=== PATIENT | male | born 1950 | race Caucasian/White ===

== ENCOUNTER 2018-08-18 15:45 | Emergency (ER) | payer OTHER, BC ==
--- OUTSIDE RECORDS SUMMARY | 2018-08-18 15:54 | XMS REPORT | Clinical Summary ---
:1950 Author Organization [facility] Address [address] [place] [address] Care Team Providers Name Role Phone Jasmeet Valle MD Primary Care Provider Unavailable Allergies Active Allergy Reactions Severity Noted Date Comments Adhesive Tape-Silicones Other (See Comments) 07/04/2016 Skin tears Codeine GI Intolerance 07/04/2016 nausea Pantoprazole Rash Low 07/04/2016 Qyshyez-Oxl-Rsz Reductase Anaphylaxis High 07/04/2016 seizures Inhibitors Medications Medication Sig Dispensed Refills Start Date End Date Status doxycycline Take 100 mg by 11 06/10/2016 Active (VIBRAMYCIN) 100 MG mouth 2 (two) capsule times a day. cefdinir (OMNICEF) 300 Take 300 mg by 11 06/10/2016 Active MG capsule mouth 2 (two) times a day. famotidine (PEPCID) 20 Take 20 mg by 0 Active MG tablet mouth. ergocalciferol (VITAMIN Take by mouth. 0 Active D2) 50,000 unit capsule lactulose (CHRONULAC) TAKE 30ML BY 5 06/30/2016 Active 10 gram/15 mL solution MOUTH THREE TIMES DAILY XIFAXAN 550 mg tablet Take 550 mg by 3 06/08/2016 Active mouth 2 (two) times a day. rOPINIRole (REQUIP) TAKE 2 TABLETS BY 3 06/28/2016 Active 0.25 MG tablet MOUTH NIGHTLY AT BEDTIME spironolactone Take 50 mg by 0 06/14/2016 Active (ALDACTONE) 50 MG mouth 2 (two) tablet times a day. torsemide (DEMADEX) 20 Take 40 mg by 3 06/12/2016 Active MG tablet mouth 2 (two) times a day. traZODone (DESYREL) 50 Take 50 mg by 5 06/06/2016 Active MG tablet mouth nightly. ursodiol (ACTIGALL) 300 Take 600 mg by 6 05/14/2016 Active mg capsule mouth 2 (two) times a day. zinc sulfate (ZINCATE) Take 220 mg by 0 Active 220 (50) mg capsule mouth. midodrine (PROAMATINE) Take 2.5 mg by 3 04/19/2016 Active 2.5 MG tablet mouth 2 (two) times a day. LANTUS SOLOSTAR 100 INJECT 20 UNITS 2 03/30/2016 Active unit/mL injection (pen) UNDER THE SKIN ONCE DAILY HUMALOG KWIKPEN 100 INJECT 25 UNIT 2 05/15/2016 Active unit/mL insulin pen UNDER THE SKIN WITH EACH MEAL, INCLUDING SNACKS hydrOXYzine (ATARAX) 25 TAKE 1 TABLET BY 3 06/27/2016 Active MG tablet MOUTH 3 TIMES A DAY NEEDED FOR ITCHING clotrimazole (LOTRIMIN) APPLY TO AFFECTED 11 04/09/2016 Active 1 % cream AREAS TWICE DAILY. cholestyramine 5 06/26/2016 Active (QUESTRAN) 4 gram packet ondansetron ODT Take 4 mg by 0 02/06/2016 Active (ZOFRAN-ODT) 4 MG mouth. disintegrating tablet CALCIUM PHOSPHATE Take by mouth. 0 Active TRIB/VIT D3 (CALTRATE GUMMY BITES ORAL) omeprazole OTC Take 20 mg by 0 Active (PriLOSEC OTC) 20 MG EC mouth daily. tablet Active Problems No known active problems Family History Medical History Relation Name Comments Heart disease Father Dementia Mother Diabetes Mother Heart failure Mother Osteoporosis Mother Relation Name Status Comments Father Alive Mother Social History Tobacco Use Types Packs/Day Years Used Date Never Smoker Smokeless Tobacco: Former User Chew Quit: 1973 Alcohol Use Drinks/Week oz/Week Comments No Haven't had a drink in 17 years Sex Assigned at Date Recorded Not on file Job Start Date Occupation Industry Not on file Not on file Not on file Travel History Travel Start Travel End No recent travel history available. Last Filed Vital Signs Not on file Plan of Treatment Health Maintenance Due Date Last Done Comments COLON CANCER SCREENING 1999 SHINGLES VACCINES (1 of 2) 1999 PNEUMOCOCCAL POLYSACCHARIDE VACCINE AGE 65 AND OVER 2014 PNEUMOCOCCAL-13 2014 INFLUENZA VACCINE 02/12/2018 Results Not on fileafter 08/17/2017 Insurance Payer Benefit Plan / Group Subscriber ID Type Phone Address MEDICARE MEDICARE PART A AND B xxxxxxxxxx Medicare [place], [place] BCBS BCBS PAR/TRAD PLAN xxxxxxxxxxxx Indemnity Advance Directives Patient has advance care planning documents on file. For more information, please contact:Jayme Haddad[address] [place] [address]
--- OUTSIDE RECORDS SUMMARY | 2018-08-18 15:59 | XMS REPORT ---
:1950 [facility] Address [address] [place] [address] Dr. Vazquez [address] [place] [id number] Care Team Providers Name Role Phone GEOFF SOLIMAN Unavailable Unavailable SABRINA MARX Unavailable Unavailable MAGDY COTTON Unavailable Unavailable GIN CARMICHAEL Unavailable Unavailable NAOMI RESENDEZ Unavailable Unavailable ROCKY OLIVO Unavailable Unavailable AUGIE HUIZAR Unavailable Unavailable HIMA MAGAÑA Unavailable Unavailable ANDRES AMAYA Unavailable Unavailable LAZARUS RODRÍGUEZ Unavailable Unavailable SMITH SAENZ Unavailable Unavailable INNA DENNIS Unavailable Unavailable STUART GONZALEZ Unavailable Unavailable DAWSON ZEPEDA Unavailable Unavailable Problems This patient has no known problems. Allergies, Adverse Reactions, Alerts This patient has no known allergies or adverse reactions. Medications This patient has no known medications. Results Test Description Test Time Test Comments Text Results Atomic Results Result Comments BLOOD CULTURE 2018-07-27 13:00:00 Test Item Value Reference Range Comments CULTURE (BEAKER) (test kfmk=8432) No growth in 5 days BLOOD [id number] 13:00:00 Test Item Value Reference Range Comments CULTURE (BEAKER) (test acmo=9248) No growth in 5 days STOOL CULTURE + SHIGA [id number] 06:17:00 Test Item Value Reference Range Comments CULTURE (BEAKER) (test No Salmonella, Shigella or ryib=8040) Campylobacter isolated STOOL PATH [id number] 06:17:00 Test Item Value Reference Range Comments PATHOGEN EXAM CHARGED (BEAKER) (test jthb=4031) Done POCT-GLUCOSE [id number] 17:50:00 Test Item Value Reference Range Comments POC-GLUCOSE METER ([employer]) 200 mg/dL 70-110 TESTED AT [place] [address] [address] (test krjx=3372) [place] [address] SHIGA TOXIN [id number] 15:19:00 Test Item Value Reference Range Comments SHIGA TOXIN 1 (BEAKER) (test zici=9943) Not detected Not detected SHIGA TOXIN 2 (BEAKER) (test syan=2710) Not detected Not detected POCT-GLUCOSE [id number] 12:17:00 Test Item Value Reference Range Comments POC-GLUCOSE METER (BEAKER) 106 mg/dL 70-110 TESTED AT [address] (test amjn=9103) [place] [address] C. DIFFICILE GDH [id number] 09:26:00 Test Item Value Reference Range Comments CDT TOXIN (test Negative Negative eukh=[id number]) CDT GDH ANTIGEN (test Negative Negative No indication of Clostridium gjeb=[id number]) difficile infection and no colonization. Discontinue enteric isolation and therapy. Testing performed by [employer] Rapid Cassette Assay. For GDH, published sensitivity of the assay is 98.7% compared to cytotoxicity testing. For Toxin AB, published sensitivity is 87.8% and specificity 99.4% compared to cytotoxicity testing.Verification of kit performance was done by the [facility] Microbiology Lab prior to clinical use.POCT-GLUCOSE [id number] 07:57:00 Test Item Value Reference Range Comments POC-GLUCOSE METER ([employer]) 291 mg/dL 70-110 TESTED AT [address] (test lhlu=1119) [place] [address] HEPATITIS A ANTIBODY, [id number] 07:41:00 Test Item Value Reference Range Comments HEPATITIS A IGG ANTIBODY ([facility]) (test dsuf=6587) Reactive Nonreactive HEPATITIS B SURFACE [id number] 07:06:00 Test Item Value Reference Range Comments HEPATITIS B SURFACE ANTIBODY (BEAKER) (test < mIU/mL <8.0 uftj=746) CALCIUM, [id number] 06:50:00 Test Item Value Reference Range Comments CALCIUM IONIZED (AKER) (test fioo=051) 1.04 mmol/L 1.12-1.27 PH, BLOOD ([facility]) (test bzdb=2589) 7.46 CBC W/PLT COUNT & AUTO [id number] 06:42:00 Test Item Value Reference Range Comments WHITE BLOOD CELL COUNT 4.0 K/ L 3.5-10.5 (BEAKER) (test uvqr=208) RED BLOOD CELL COUNT (BEAKER) 2.73 M/ L 4.63-6.08 (test qlyf=906) HEMOGLOBIN (BEAKER) (test 8.5 GM/DL 13.7-17.5 vmlx=846) HEMATOCRIT (BEAKER) (test 28.0 % 40.1-51.0 jxwt=475) MEAN CORPUSCULAR VOLUME 102.6 fL 79.0-92.2 (BEAKER) (test hqud=279) MEAN CORPUSCULAR HEMOGLOBIN 31.1 pg 25.7-32.2 (BEAKER) (test ttip=876) MEAN CORPUSCULAR HEMOGLOBIN 30.4 GM/DL 32.3-36.5 CONC (BEAKER) (test turd=485) RED CELL DISTRIBUTION WIDTH 17.5 % 11.6-14.4 (BEAKER) (test cgbc=521) PLATELET COUNT (BEAKER) (test 46 K/CU MM 150-450 qnbd=863) MEAN PLATELET VOLUME (BEAKER) fL 9.4-12.4 Unable to report due to (test jbsi=105) abnormal Platelet population distribution. NUCLEATED RED BLOOD CELLS 0 /100 WBC 0-0 (BEAKER) (test vmws=362) NEUTROPHILS RELATIVE PERCENT 64 % (BEAKER) (test ptoc=519) LYMPHOCYTES RELATIVE PERCENT 16 % (BEAKER) (test oqgf=791) MONOCYTES RELATIVE PERCENT 12 % (BEAKER) (test zkay=343) EOSINOPHILS RELATIVE PERCENT 8 % (BEAKER) (test qqqp=712) BASOPHILS RELATIVE PERCENT 1 % (BEAKER) (test azqg=595) NEUTROPHILS ABSOLUTE COUNT 2.53 K/ L 1.78-5.38 (BEAKER) (test movx=702) LYMPHOCYTES ABSOLUTE COUNT 0.63 K/ L 1.32-3.57 (BEAKER) (test ghbx=548) MONOCYTES ABSOLUTE COUNT 0.46 K/ L 0.30-0.82 (BEAKER) (test lmjg=901) EOSINOPHILS ABSOLUTE COUNT 0.32 K/ L 0.04-0.54 (BEAKER) (test mxkl=382) BASOPHILS ABSOLUTE COUNT 0.03 K/ L 0.01-0.08 (BEAKER) (test shvq=604) IMMATURE GRANULOCYTES-RELATIVE 0 % 0-1 PERCENT (BEAKER) (test isbl=3642) COMPREHENSIVE METABOLIC [id number] 06:39:00 Test Item Value Reference Range Comments TOTAL PROTEIN (BEAKER) 6.1 gm/dL 6.0-8.3 (test wtde=289) ALBUMIN (BEAKER) (test 2.7 g/dL 3.5-5.0 efxm=6140) ALKALINE PHOSPHATASE 126 U/L 40-150 (BEAKER) (test gada=587) BILIRUBIN TOTAL (BEAKER) 2.3 mg/dL 0.2-1.2 (test tkhw=602) SODIUM (BEAKER) (test 135 meq/L 136-145 ljvi=981) POTASSIUM (BEAKER) (test 4.3 meq/L 3.5-5.1 kqnz=868) CHLORIDE (BEAKER) (test 109 meq/L 98-107 bcmb=348) CO2 (BEAKER) (test 20 meq/L 22-29 kgev=938) BLOOD UREA NITROGEN 29 mg/dL 7-21 (BEAKER) (test snft=552) CREATININE (BEAKER) (test 1.23 mg/dL 0.57-1.25 ljgl=578) GLUCOSE RANDOM (BEAKER) 118 mg/dL 70-105 (test rmwy=181) CALCIUM (BEAKER) (test 8.6 mg/dL 8.4-10.2 gthb=408) AST (SGOT) (BEAKER) (test 58 U/L 5-34 msrq=815) ALT (SGPT) (BEAKER) (test 35 U/L 6-55 abcn=505) EGFR (BEAKER) (test 58 mL/min/1.73 sq m ESTIMATED GFR IS NOT qsry=8296) ACCURATE CREATININE CLEARANCE IN PREDICTING GLOMERULAR FILTRATION RATE. ESTIMATED GFR IS NOT APPLICABLE FOR DIALYSIS PATIENTS. Specimen slightly ictericHEPATIC FUNCTION [id number] 06:39:00 Test Item Value Reference Range Comments TOTAL PROTEIN (BEAKER) (test daad=188) 6.1 gm/dL 6.0-8.3 ALBUMIN (BEAKER) (test alhu=0766) 2.7 g/dL 3.5-5.0 BILIRUBIN TOTAL (BEAKER) (test zynh=593) 2.3 mg/dL 0.2-1.2 BILIRUBIN DIRECT (BEAKER) (test naad=055) 1.2 mg/dL 0.1-0.5 ALKALINE PHOSPHATASE (BEAKER) (test dhgp=949) 126 U/L 40-150 AST (SGOT) (BEAKER) (test lvrw=310) 58 U/L 5-34 ALT (SGPT) (BEAKER) (test bmac=004) 35 U/L 6-55 Specimen slightly [id number] 06:38:00 Test Item Value Reference Range Comments PHOSPHORUS (BEAKER) (test gqxk=631) 2.8 mg/dL 2.3-4.7 [id number] 06:38:00 Test Item Value Reference Range Comments MAGNESIUM (BEAKER) (test nail=671) 1.9 mg/dL 1.6-2.6 POCT-GLUCOSE [id number] 21:42:00 Test Item Value Reference Range Comments POC-GLUCOSE METER (BEAKER) 169 mg/dL 70-110 TESTED AT [address] (test qxox=2963) [facility] [address] POCT-GLUCOSE [id number] 18:07:00 Test Item Value Reference Range Comments POC-GLUCOSE METER (BEAKER) 242 mg/dL 70-110 TESTED AT [address] (test mazr=6829) [facility] [address] U/S, ABDOMINAL, [id number] 17:37:00Send ascitic fluid for cell count and differential If Cr > 1.5, do not remove more than 3.5L of ascitic fluid. If & gt; 3L removed, please administer 200 mL of albumin 25% (50 grams) IV x 1Reason forexam:->History of loculated ascites. Now more abdominal distension. Rule out SBP.FINAL REPORT INDICATION: Ascites. Limited abdominal ultrasound. IMPRESSION: Ultrasound examination of the abdomen was performed in preparation for paracentesis. However, no ascites is identified. Paracentesis is therefore not performed. Signed: Jonnie Keith Verified Date/Time: 07/22/2018 17:37:51 Reading Location: [place] [id number] Ultrasound Reading Room 05: 37 PMURINALYSIS W/ [id number] 16:02:00 Test Item Value Reference Range Comments COLOR (BEAKER) (test pzbc=633) Yellow CLARITY (BEAKER) (test atkp=352) Clear SPECIFIC GRAVITY UA (BEAKER) (test 1.012 1.001-1.035 pvrv=877) PH UA (BEAKER) (test hxet=486) 5.5 5.0-8.0 PROTEIN UA (BEAKER) (test pwvb=330) 10 mg/dL Negative GLUCOSE UA (BEAKER) (test fsxz=676) Negative Negative KETONES UA (BEAKER) (test jyjc=896) Negative Negative BILIRUBIN UA (BEAKER) (test uhbx=468) Negative Negative BLOOD UA (BEAKER) (test iykp=717) Moderate Negative NITRITE UA (BEAKER) (test dcpb=511) Negative Negative LEUKOCYTE ESTERASE UA (BEAKER) (test Negative Negative tvqh=740) UROBILINOGEN UA (BEAKER) (test xptb=558) 0.2 mg/dL 0.2-1.0 RBC UA (BEAKER) (test dbcf=791) 11 /HPF WBC UA (BEAKER) (test waif=879) < /HPF MUCUS (BEAKER) (test dmtc=7043) Rare SQUAMOUS EPITHELIAL (BEAKER) (test 1 /HPF hwiw=084) HYALINE CASTS (BEAKER) (test iixr=553) 2 /LPF SOURCE(BEAKER) (test qhhx=7964) Urine, Clean Catch FECAL [id number] 14:04:00 Test Item Value Reference Range Comments FECAL LEUKOCYTES (BEAKER) No fecal leukocytes seen No fecal leukocytes seen (test axty=884) POCT-GLUCOSE [id number] 11:45:00 Test Item Value Reference Range Comments POC-GLUCOSE METER (BEAKER) 233 mg/dL 70-110 TESTED AT [facility] [address] [place] [address] (test flcx=4010) [facility] [address] BASIC METABOLIC [id number] 08:41:00 Test Item Value Reference Range Comments SODIUM (BEAKER) (test 139 meq/L 136-145 xdwg=536) POTASSIUM (BEAKER) (test 3.6 meq/L 3.5-5.1 mkfo=690) CHLORIDE (BEAKER) (test 112 meq/L 98-107 fjpr=490) CO2 (BEAKER) (test 18 meq/L 22-29 ngcn=805) BLOOD UREA NITROGEN 33 mg/dL 7-21 (BEAKER) (test jjsx=075) CREATININE (BEAKER) (test 1.13 mg/dL 0.57-1.25 eglo=207) GLUCOSE RANDOM (BEAKER) 107 mg/dL 70-105 (test kztx=993) CALCIUM (BEAKER) (test 8.9 mg/dL 8.4-10.2 wvzt=705) EGFR (BEAKER) (test 64 mL/min/1.73 sq m ESTIMATED GFR IS NOT zqfj=8463) ACCURATE CREATININE CLEARANCE IN PREDICTING GLOMERULAR FILTRATION RATE. ESTIMATED GFR IS NOT APPLICABLE FOR DIALYSIS PATIENTS. Specimen slightly ictericHEPATIC FUNCTION [id number] 08:41:00 Test Item Value Reference Range Comments TOTAL PROTEIN (BEAKER) (test tpdr=025) 6.2 gm/dL 6.0-8.3 ALBUMIN (BEAKER) (test dlwg=4406) 2.7 g/dL 3.5-5.0 BILIRUBIN TOTAL (BEAKER) (test bmmw=332) 2.2 mg/dL 0.2-1.2 BILIRUBIN DIRECT (BEAKER) (test rezj=256) 1.1 mg/dL 0.1-0.5 ALKALINE PHOSPHATASE (BEAKER) (test aboz=956) 125 U/L 40-150 AST (SGOT) (BEAKER) (test jbki=134) 50 U/L 5-34 ALT (SGPT) (BEAKER) (test nvsj=319) 33 U/L 6-55 Specimen slightly ictericPOCT-GLUCOSE [id number] 08:40:00 Test Item Value Reference Range Comments POC-GLUCOSE METER (BEAKER) 138 mg/dL 70-110 TESTED AT [address] (test cvxy=7349) [facility] [address] CBC W/PLT COUNT & AUTO [id number] 08:29:00 Test Item Value Reference Range Comments WHITE BLOOD CELL COUNT (BEAKER) (test vndc=554) 4.4 K/ L 3.5-10.5 RED BLOOD CELL COUNT (BEAKER) (test aebq=944) 2.83 M/ L 4.63-6.08 HEMOGLOBIN (BEAKER) (test wxwq=484) 8.9 GM/DL 13.7-17.5 HEMATOCRIT (BEAKER) (test demf=139) 28.8 % 40.1-51.0 MEAN CORPUSCULAR VOLUME (BEAKER) (test fght=338) 101.8 fL 79.0-92.2 MEAN CORPUSCULAR HEMOGLOBIN (BEAKER) (test 31.4 pg 25.7-32.2 pdfo=855) MEAN CORPUSCULAR HEMOGLOBIN CONC (BEAKER) (test 30.9 GM/DL 32.3-36.5 vxez=564) RED CELL DISTRIBUTION WIDTH (BEAKER) (test 17.8 % 11.6-14.4 wvby=275) PLATELET COUNT (BEAKER) (test qqiq=932) 41 K/CU MM 150-450 MEAN PLATELET VOLUME (BEAKER) (test nvns=714) 13.1 fL 9.4-12.4 NUCLEATED RED BLOOD CELLS (BEAKER) (test 0 /100 WBC 0-0 icwb=981) NEUTROPHILS RELATIVE PERCENT (BEAKER) (test 69 % agqz=432) LYMPHOCYTES RELATIVE PERCENT (BEAKER) (test 13 % dsna=597) MONOCYTES RELATIVE PERCENT (BEAKER) (test 10 % iapw=510) EOSINOPHILS RELATIVE PERCENT (BEAKER) (test 8 % mmaj=729) BASOPHILS RELATIVE PERCENT (BEAKER) (test 1 % lran=956) NEUTROPHILS ABSOLUTE COUNT (BEAKER) (test 3.02 K/ L 1.78-5.38 xlbk=061) LYMPHOCYTES ABSOLUTE COUNT (BEAKER) (test 0.55 K/ L 1.32-3.57 ieal=137) MONOCYTES ABSOLUTE COUNT (BEAKER) (test pexn=061) 0.45 K/ L 0.30-0.82 EOSINOPHILS ABSOLUTE COUNT (BEAKER) (test 0.33 K/ L 0.04-0.54 lktn=730) BASOPHILS ABSOLUTE COUNT (BEAKER) (test otyf=814) 0.02 K/ L 0.01-0.08 IMMATURE GRANULOCYTES-RELATIVE PERCENT (BEAKER) 0 % 0-1 (test tvjk=1741) POCT-GLUCOSE [id number] 02:20:00 Test Item Value Reference Range Comments POC-GLUCOSE METER (BEAKER) 222 mg/dL 70-110 TESTED AT [facility] [address] [facility] (test kwyz=2672) [facility] [address] [id number] 14:18:00 Test Item Value Reference Range Comments PHOSPHORUS (BEAKER) (test lmcq=537) 3.4 mg/dL 2.3-4.7 [id number] 14:18:00 Test Item Value Reference Range Comments MAGNESIUM (BEAKER) (test bzxw=905) 1.9 mg/dL 1.6-2.6 BASIC METABOLIC [id number] 14:18:00 Test Item Value Reference Range Comments SODIUM (BEAKER) (test 140 meq/L 136-145 tdxg=451) POTASSIUM (BEAKER) (test 3.3 meq/L 3.5-5.1 efyw=010) CHLORIDE (BEAKER) (test 108 meq/L 98-107 ntuz=888) CO2 (BEAKER) (test 21 meq/L 22-29 svmp=291) BLOOD UREA NITROGEN 40 mg/dL 7-21 (BEAKER) (test dixz=460) CREATININE (BEAKER) (test 1.41 mg/dL 0.57-1.25 xwzs=810) GLUCOSE RANDOM (BEAKER) 213 mg/dL 70-105 (test ctlr=382) CALCIUM (BEAKER) (test 9.2 mg/dL 8.4-10.2 ahkp=648) EGFR (BEAKER) (test 50 mL/min/1.73 sq m ESTIMATED GFR IS NOT ghfy=8554) ACCURATE CREATININE CLEARANCE IN PREDICTING GLOMERULAR FILTRATION RATE. ESTIMATED GFR IS NOT APPLICABLE FOR DIALYSIS PATIENTS. Specimen slightly ictericHEPATIC FUNCTION [id number] 14:18:00 Test Item Value Reference Range Comments TOTAL PROTEIN (BEAKER) (test dkxo=294) 7.0 gm/dL 6.0-8.3 ALBUMIN (BEAKER) (test haiz=0811) 3.1 g/dL 3.5-5.0 BILIRUBIN TOTAL (BEAKER) (test usvx=584) 2.2 mg/dL 0.2-1.2 BILIRUBIN DIRECT (BEAKER) (test ecgk=319) 1.2 mg/dL 0.1-0.5 ALKALINE PHOSPHATASE (BEAKER) (test lcme=059) 154 U/L 40-150 AST (SGOT) (BEAKER) (test twos=392) 49 U/L 5-34 ALT (SGPT) (BEAKER) (test cwos=818) 36 U/L 6-55 Specimen slightly ictericCBC W/PLT COUNT & AUTO [id number] 14:13 :00 Test Item Value Reference Range Comments WHITE BLOOD CELL COUNT 4.7 K/ L 3.5-10.5 (BEAKER) (test eosd=354) RED BLOOD CELL COUNT (BEAKER) 2.82 M/ L 4.63-6.08 (test ksqn=101) HEMOGLOBIN (BEAKER) (test 9.0 GM/DL 13.7-17.5 aklp=240) HEMATOCRIT (BEAKER) (test 28.3 % 40.1-51.0 fszk=524) MEAN CORPUSCULAR VOLUME 100.4 fL 79.0-92.2 (BEAKER) (test iycx=582) MEAN CORPUSCULAR HEMOGLOBIN 31.9 pg 25.7-32.2 (BEAKER) (test ehkb=339) MEAN CORPUSCULAR HEMOGLOBIN 31.8 GM/DL 32.3-36.5 CONC (BEAKER) (test crwe=674) RED CELL DISTRIBUTION WIDTH 17.6 % 11.6-14.4 (BEAKER) (test ayap=710) PLATELET COUNT (BEAKER) (test 41 K/CU MM 150-450 xpei=180) MEAN PLATELET VOLUME (BEAKER) fL 9.4-12.4 Unable to report due to (test vopk=136) abnormal Platelet population distribution. NUCLEATED RED BLOOD CELLS 0 /100 WBC 0-0 (BEAKER) (test oixi=104) NEUTROPHILS RELATIVE PERCENT 82 % (BEAKER) (test aeab=517) LYMPHOCYTES RELATIVE PERCENT 8 % (BEAKER) (test xgbl=632) MONOCYTES RELATIVE PERCENT 6 % (BEAKER) (test dchx=347) EOSINOPHILS RELATIVE PERCENT 3 % (BEAKER) (test hldj=702) BASOPHILS RELATIVE PERCENT 0 % (BEAKER) (test gcen=718) NEUTROPHILS ABSOLUTE COUNT 3.82 K/ L 1.78-5.38 (BEAKER) (test lwyz=608) LYMPHOCYTES ABSOLUTE COUNT 0.38 K/ L 1.32-3.57 (BEAKER) (test ntrp=088) MONOCYTES ABSOLUTE COUNT 0.29 K/ L 0.30-0.82 (BEAKER) (test ohcy=148) EOSINOPHILS ABSOLUTE COUNT 0.13 K/ L 0.04-0.54 (BEAKER) (test jfvu=134) BASOPHILS ABSOLUTE COUNT 0.01 K/ L 0.01-0.08 (BEAKER) (test jlip=606) IMMATURE GRANULOCYTES-RELATIVE 0 % 0-1 PERCENT (BEAKER) (test iyyu=9265) [id number] 14:12:00 Test Item Value Reference Range Comments AMMONIA (BEAKER) (test jouz=701) 34 mol/L 18-72 [id number] 14:09:00 Test Item Value Reference Range Comments PROTIME (BEAKER) (test ovzf=244) 16.8 seconds 11.7-14.7 INR (BEAKER) (test vasz=207) 1.4 <=5.9 PARTIAL THROMBOPLASTIN TIME (BEAKER) (test 35.8 seconds 22.5-36.0 frhz=275) RECOMMENDED COUMADIN/WARFARIN INR THERAPY RANGESSTANDARD DOSE: 2.0 - 3.0 Includes: PROPHYLAXIS forvenous thrombosis, systemic embolization; TREATMENT for venous thrombosis and/or pulmonary embolus.HIGH RISK: Target INR is 2.5-3.5 for patients with mechanical heart valves.CT, ABDOMEN, [id number] 17:43: 00Liver Prctocol-Triple PhaseFINAL REPORT TECHNIQUE: CT of the abdomen WITHOUT and WITH intravenous contrast and WITHOUT oral contrast. Dose modulation, iterative reconstruction, and/or weight-based adjustment of the mA/kV was utilized to reduce the radiation dose to as low as reasonably achievable. INDICATION: 68-year-old man with cirrhosis. COMPARISON: Abdomen ultrasound 01/07/2018; chest, abdomen, and pelvis CTA 08/24/2016. FINDINGS: LOWER THORAX: Prior aortic valve repair. HEPATOBILIARY: Somewhat nodular contour of the liver, suggestive of cirrhosis. No suspicious liver lesion. 0.8 cm cyst in the lefthepatic lobe. Cholelithiasis without gallbladder wall thickening or distention. No biliary ductal dilatation. Trace pneumobilia.SPLEEN : The spleen is enlarged, measuring 20 cm in the craniocaudal dimension.PANCREAS : No focal masses or ductal dilatation. ADRENALS: No adrenal nodules.KIDNEYS/ URETERS: Nohydronephrosis, stones, or solid mass lesions. PERITONEUM/ RETROPERITONEUM: Small volume ascites. No free air. Peripherally calcified debris-containing fluid collection in the right abdomen has decreased in size from 6.2 x 5.7 x 22.3 cm to 4.3 x 4.4 x 14.7 cm.LYMPH NODES: No lymphadenopathy.VESSELS: Wall calcifications throughout the portal system. Occlusive thrombus throughout the portal veins with cavernous transformation. Nonocclusive thrombus in the superior mesenteric vein. Splenic vein is patent. Questionable nonocclusive thrombus in the low inferior mesenteric vein. Perisplenic varices and multiple collateral vessels in the anterior abdomen. Hepatic veins are patent. Abdominal aorta is normal in caliber. GI TRACT: No distention or wall thickening. Suspected small periampullary duodenal diverticula. BONES AND SOFT TISSUES: Degenerative changes of the visualized spine. Gynecomastia bilaterally. Small supraumbilical ventral hernia contains fat and a small amount of ascitic fluid. IMPRESSION:Cirrhosis with portal hypertension and small volume ascites. No suspicious liver lesion. 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 Nonocclusive thrombus in the superior mesenteric vein. Questionable nonocclusive thrombus in the low inferior mesenteric vein. Decreased size of the debris-containing fluid collection in the right abdomen since 08/24/2016. Cholelithiasis. Signed: John Aguirre MDReport Verified Date/Time: 07/01/2018 17:43:59 Reading Location: [address] Radiology Reading Room [id number] 14:32:00 Test Item Value Reference Range Comments POC-CREATININE (BEAKER) 1.5 mg/dL 0.6-1.3 TESTED AT [facility] [address] [facility] (test ysez=6508) [facility] [address] POC-EGFR (BEAKER) (test 46 mL/min/1.73M2 mmgk=7073) CBC W/PLT COUNT & AUTO [id number] 14:08:00 Test Item Value Reference Range Comments WHITE BLOOD CELL COUNT (BEAKER) (test uaky=671) 6.5 K/ L 3.5-10.5 RED BLOOD CELL COUNT (BEAKER) (test rebb=005) 2.58 M/ L 4.63-6.08 HEMOGLOBIN (BEAKER) (test mcjx=232) 7.8 GM/DL 13.7-17.5 HEMATOCRIT (BEAKER) (test zwyu=782) 25.5 % 40.1-51.0 MEAN CORPUSCULAR VOLUME (BEAKER) (test lmsb=140) 98.8 fL 79.0-92.2 MEAN CORPUSCULAR HEMOGLOBIN (BEAKER) (test 30.2 pg 25.7-32.2 gzyg=015) MEAN CORPUSCULAR HEMOGLOBIN CONC (BEAKER) (test 30.6 GM/DL 32.3-36.5 mqtx=894) RED CELL DISTRIBUTION WIDTH (BEAKER) (test 17.1 % 11.6-14.4 mcfc=796) PLATELET COUNT (BEAKER) (test lqyl=306) 39 K/CU MM 150-450 MEAN PLATELET VOLUME (BEAKER) (test wohc=401) 12.8 fL 9.4-12.4 NUCLEATED RED BLOOD CELLS (BEAKER) (test 0 /100 WBC 0-0 wciu=810) NEUTROPHILS RELATIVE PERCENT (BEAKER) (test 82 % loug=502) LYMPHOCYTES RELATIVE PERCENT (BEAKER) (test 7 % ypjf=029) MONOCYTES RELATIVE PERCENT (BEAKER) (test 8 % vrov=282) EOSINOPHILS RELATIVE PERCENT (BEAKER) (test 3 % tnwc=679) BASOPHILS RELATIVE PERCENT (BEAKER) (test 0 % umkj=412) NEUTROPHILS ABSOLUTE COUNT (BEAKER) (test 5.37 K/ L 1.78-5.38 ugyq=233) LYMPHOCYTES ABSOLUTE COUNT (BEAKER) (test 0.43 K/ L 1.32-3.57 gtqe=144) MONOCYTES ABSOLUTE COUNT (BEAKER) (test icjm=512) 0.51 K/ L 0.30-0.82 EOSINOPHILS ABSOLUTE COUNT (BEAKER) (test 0.19 K/ L 0.04-0.54 cwme=619) BASOPHILS ABSOLUTE COUNT (BEAKER) (test tvhf=429) 0.02 K/ L 0.01-0.08 IMMATURE GRANULOCYTES-RELATIVE PERCENT (BEAKER) 0 % 0-1 (test mfaz=7348) COMPREHENSIVE METABOLIC [id number] 14:06:00 Test Item Value Reference Range Comments TOTAL PROTEIN (BEAKER) 6.3 gm/dL 6.0-8.3 (test dvle=571) ALBUMIN (BEAKER) (test 2.8 g/dL 3.5-5.0 uvfd=0154) ALKALINE PHOSPHATASE 157 U/L 40-150 (BEAKER) (test zyqb=455) BILIRUBIN TOTAL (BEAKER) 1.4 mg/dL 0.2-1.2 (test lbmq=873) SODIUM (BEAKER) (test 137 meq/L 136-145 mjer=741) POTASSIUM (BEAKER) (test 3.7 meq/L 3.5-5.1 wwjk=016) CHLORIDE (BEAKER) (test 110 meq/L 98-107 eufz=103) CO2 (BEAKER) (test 20 meq/L 22-29 iywa=589) BLOOD UREA NITROGEN 50 mg/dL 7-21 (BEAKER) (test gefy=425) CREATININE (BEAKER) (test 1.37 mg/dL 0.57-1.25 nbch=418) GLUCOSE RANDOM (BEAKER) 128 mg/dL 70-105 (test affo=028) CALCIUM (BEAKER) (test 8.7 mg/dL 8.4-10.2 japa=375) AST (SGOT) (BEAKER) (test 41 U/L 5-34 jbxr=097) ALT (SGPT) (BEAKER) (test 29 U/L 6-55 kamu=196) EGFR (BEAKER) (test 52 mL/min/1.73 sq m ESTIMATED GFR IS NOT yrbo=1841) ACCURATE CREATININE CLEARANCE IN PREDICTING GLOMERULAR FILTRATION RATE. ESTIMATED GFR IS NOT APPLICABLE FOR DIALYSIS PATIENTS. BILIRUBIN, [id number] 14:06:00 Test Item Value Reference Range Comments BILIRUBIN DIRECT (BEAKER) (test yogd=780) 0.9 mg/dL 0.1-0.5 PROTHROMBIN [id number] 13:50:00 Test Item Value Reference Range Comments PROTIME (BEAKER) (test vygq=853) 17.3 seconds 11.7-14.7 INR (BEAKER) (test vifz=068) 1.4 <=5.9 RECOMMENDED COUMADIN/WARFARIN INR THERAPY RANGESSTANDARD DOSE: 2.0 - 3.0 Includes: PROPHYLAXIS forvenous thrombosis, systemic embolization; TREATMENT for venous thrombosis and/or pulmonary embolus.HIGH RISK: Target INR is 2.5-3.5 for patients with mechanical heart valves.URINALYSIS W/ REFLEX URINE [id number] 14:33:00 Test Item Value Reference Range Comments COLOR (BEAKER) (test bwir=719) Yellow CLARITY (BEAKER) (test tyvd=106) Clear SPECIFIC GRAVITY UA (BEAKER) (test jmna=115) 1.012 1.001-1.035 PH UA (BEAKER) (test qlus=620) 5.5 5.0-8.0 PROTEIN UA (BEAKER) (test tyjs=436) 10 mg/dL Negative GLUCOSE UA (BEAKER) (test wbcs=185) Negative Negative KETONES UA (BEAKER) (test anta=071) Negative Negative BILIRUBIN UA (BEAKER) (test kqjp=256) Negative Negative BLOOD UA (BEAKER) (test ngga=956) Small Negative NITRITE UA (BEAKER) (test ovgb=802) Negative Negative LEUKOCYTE ESTERASE UA (BEAKER) (test vofg=383) Negative Negative UROBILINOGEN UA (BEAKER) (test kcua=521) 0.2 mg/dL 0.2-1.0 RBC UA (BEAKER) (test pqyl=250) 11 /HPF WBC UA (BEAKER) (test ydzx=382) 1 /HPF BACTERIA (BEAKER) (test lmgj=751) Rare SQUAMOUS EPITHELIAL (BEAKER) (test fzwg=418) < /HPF HYALINE CASTS (BEAKER) (test ufce=261) 1 /LPF SOURCE(BEAKER) (test gtok=0970) POCT-GLUCOSE [id number] 13:22:00 Test Item Value Reference Range Comments POC-GLUCOSE METER (BEAKER) 266 mg/dL 70-110 TESTED AT [facility] [address] [facility] (test xdqv=6104) [facility] [address] VITAMIN B12 AND [id number] 09:11:00 Test Item Value Reference Range Comments VITAMIN B12 (BEAKER) (test kwjn=422) > pg/mL 213-816 FOLATE (BEAKER) (test xrgw=968) 16.0 ng/mL >=7.0 [id number] 09:04:00 Test Item Value Reference Range Comments FERRITIN (BEAKER) (test ycdv=719) 94 ng/mL 5-275 IRON, TIBC, % SAT. (WITHOUT FERRITIN)2018-05-31 08:19:00 Test Item Value Reference Range Comments IRON (BEAKER) (test uqyp=871) 35 ug/dL 40-160 TOTAL IRON BINDING CAPACITY (BEAKER) (test 298 ug/dL 250-450 wvjj=301) IRON % SATURATION (2) (BEAKER) (test vfuk=2613) 12 % 20-55 POCT-GLUCOSE [id number] 08:10:00 Test Item Value Reference Range Comments POC-GLUCOSE METER (BEAKER) 148 mg/dL 70-110 TESTED AT [facility] [address] (test uwux=5696) [facility] [address] HEPATIC FUNCTION [id number] 04:30:00 Test Item Value Reference Range Comments TOTAL PROTEIN (BEAKER) (test qldx=819) 6.7 gm/dL 6.0-8.3 ALBUMIN (BEAKER) (test buau=3947) 3.0 g/dL 3.5-5.0 BILIRUBIN TOTAL (BEAKER) (test hkbx=164) 1.8 mg/dL 0.2-1.2 BILIRUBIN DIRECT (BEAKER) (test auff=880) 1.0 mg/dL 0.1-0.5 ALKALINE PHOSPHATASE (BEAKER) (test lgfw=845) 118 U/L 40-150 AST (SGOT) (BEAKER) (test opzt=855) 48 U/L 5-34 ALT (SGPT) (BEAKER) (test nzqa=289) 31 U/L 6-55 BASIC METABOLIC [id number] 04:30:00 Test Item Value Reference Range Comments SODIUM (BEAKER) (test 140 meq/L 136-145 glfm=134) POTASSIUM (BEAKER) (test 4.3 meq/L 3.5-5.1 kmvd=778) CHLORIDE (BEAKER) (test 115 meq/L 98-107 gcdn=495) CO2 (BEAKER) (test 20 meq/L 22-29 wjgb=223) BLOOD UREA NITROGEN 33 mg/dL 7-21 (BEAKER) (test eiuz=680) CREATININE (BEAKER) (test 1.30 mg/dL 0.57-1.25 rtsa=201) GLUCOSE RANDOM (BEAKER) 154 mg/dL 70-105 (test dmcm=166) CALCIUM (BEAKER) (test 8.5 mg/dL 8.4-10.2 rjrc=792) EGFR (BEAKER) (test 55 mL/min/1.73 sq m ESTIMATED GFR IS NOT dlvq=5762) ACCURATE CREATININE CLEARANCE IN PREDICTING GLOMERULAR FILTRATION RATE. ESTIMATED GFR IS NOT APPLICABLE FOR DIALYSIS PATIENTS. CBC (HEMOGRAM ONLY)2018-05-31 04:24:00 Test Item Value Reference Range Comments WHITE BLOOD CELL COUNT 5.7 K/ L 3.5-10.5 (BEAKER) (test eeua=176) RED BLOOD CELL COUNT (BEAKER) 2.73 M/ L 4.63-6.08 (test hgzf=450) HEMOGLOBIN (BEAKER) (test 8.8 GM/DL 13.7-17.5 nwfx=474) HEMATOCRIT (BEAKER) (test 27.8 % 40.1-51.0 ntol=133) MEAN CORPUSCULAR VOLUME 101.8 fL 79.0-92.2 (BEAKER) (test kywl=080) MEAN CORPUSCULAR HEMOGLOBIN 32.2 pg 25.7-32.2 (BEAKER) (test gjxa=442) MEAN CORPUSCULAR HEMOGLOBIN 31.7 GM/DL 32.3-36.5 CONC (BEAKER) (test vvsy=343) RED CELL DISTRIBUTION WIDTH 17.0 % 11.6-14.4 (BEAKER) (test ijlq=465) PLATELET COUNT (BEAKER) (test 44 K/CU MM 150-450 kilb=281) MEAN PLATELET VOLUME (BEAKER) 13.3 fL 9.4-12.4 Discordant MPV result (test xtfr=339) compared to previous one; Clinical correlation required. NUCLEATED RED BLOOD CELLS 0 /100 WBC 0-0 (BEAKER) (test msii=830) PROTHROMBIN [id number] 04:05:00 Test Item Value Reference Range Comments PROTIME (BEAKER) (test xmdj=905) 17.4 seconds 11.7-14.7 INR (BEAKER) (test akgw=679) 1.4 <=5.9 RECOMMENDED COUMADIN/WARFARIN INR THERAPY RANGESSTANDARD DOSE: 2.0 - 3.0 Includes: PROPHYLAXIS forvenous thrombosis, systemic embolization; TREATMENT for venous thrombosis and/or pulmonary embolus.HIGH RISK: Target INR is 2.5-3.5 for patients with mechanical heart valves.POCT-GLUCOSE [id number] 21:35:00 Test Item Value Reference Range Comments POC-GLUCOSE METER (BEAKER) 223 mg/dL 70-110 TESTED AT [facility] [address] (test uaoh=2318) [facility] [address] POCT-GLUCOSE [id number] 17:44:00 Test Item Value Reference Range Comments POC-GLUCOSE METER (BEAKER) 214 mg/dL 70-110 TESTED AT [facility] [address] [facility] (test mgsm=1965) [facility] [address] POCT-GLUCOSE [id number] 12:40:00 Test Item Value Reference Range Comments POC-GLUCOSE METER (BEAKER) 331 mg/dL 70-110 Notified DIMA SIFEUNTES/TESTED AT [facility] (test ghwg=2398) [address] [place] [address] POCT-GLUCOSE [id number] 07:32:00 Test Item Value Reference Range Comments POC-GLUCOSE METER (BEAKER) 153 mg/dL 70-110 TESTED AT [address] (test thtf=0686) [facility] [address] [id number] 06:43:00 Test Item Value Reference Range Comments MAGNESIUM (BEAKER) (test ecwl=092) 2.5 mg/dL 1.6-2.6 COMPREHENSIVE METABOLIC [id number] 06:43:00 Test Item Value Reference Range Comments TOTAL PROTEIN (BEAKER) 6.5 gm/dL 6.0-8.3 (test xstb=130) ALBUMIN (BEAKER) (test 3.0 g/dL 3.5-5.0 hhxb=8282) ALKALINE PHOSPHATASE 107 U/L 40-150 (BEAKER) (test hwwq=547) BILIRUBIN TOTAL (BEAKER) 2.3 mg/dL 0.2-1.2 (test oucm=383) SODIUM (BEAKER) (test 145 meq/L 136-145 gekc=988) POTASSIUM (BEAKER) (test 4.0 meq/L 3.5-5.1 rkwc=797) CHLORIDE (BEAKER) (test 117 meq/L 98-107 lgdg=857) CO2 (BEAKER) (test 20 meq/L 22-29 ohko=534) BLOOD UREA NITROGEN 41 mg/dL 7-21 (BEAKER) (test uzbb=081) CREATININE (BEAKER) (test 1.29 mg/dL 0.57-1.25 scgi=249) GLUCOSE RANDOM (BEAKER) 122 mg/dL 70-105 (test cnuu=052) CALCIUM (BEAKER) (test 9.0 mg/dL 8.4-10.2 tkgt=555) AST (SGOT) (BEAKER) (test 50 U/L 5-34 tkss=934) ALT (SGPT) (BEAKER) (test 34 U/L 6-55 vefd=829) EGFR (BEAKER) (test 55 mL/min/1.73 sq m ESTIMATED GFR IS NOT hxzc=4441) ACCURATE CREATININE CLEARANCE IN PREDICTING GLOMERULAR FILTRATION RATE. ESTIMATED GFR IS NOT APPLICABLE FOR DIALYSIS PATIENTS. Specimen slightly ictericPROTHROMBIN [id number] 06:13:00 Test Item Value Reference Range Comments PROTIME (BEAKER) (test uxkx=856) 17.7 seconds 11.7-14.7 INR (BEAKER) (test bbso=012) 1.5 <=5.9 RECOMMENDED COUMADIN/WARFARIN INR THERAPY RANGESSTANDARD DOSE: 2.0 - 3.0 Includes: PROPHYLAXIS forvenous thrombosis, systemic embolization; TREATMENT for venous thrombosis and/or pulmonary embolus.HIGH RISK: Target INR is 2.5-3.5 for patients with mechanical heart valves.CBC W/PLT COUNT & AUTO [id number] 06:12:00 Test Item Value Reference Range Comments WHITE BLOOD CELL COUNT (BEAKER) (test pxaw=640) 4.3 K/ L 3.5-10.5 RED BLOOD CELL COUNT (BEAKER) (test hvwr=937) 2.74 M/ L 4.63-6.08 HEMOGLOBIN (BEAKER) (test cvih=522) 8.8 GM/DL 13.7-17.5 HEMATOCRIT (BEAKER) (test wbrf=346) 27.9 % 40.1-51.0 MEAN CORPUSCULAR VOLUME (BEAKER) (test ujva=497) 101.8 fL 79.0-92.2 MEAN CORPUSCULAR HEMOGLOBIN (BEAKER) (test 32.1 pg 25.7-32.2 rssy=348) MEAN CORPUSCULAR HEMOGLOBIN CONC (BEAKER) (test 31.5 GM/DL 32.3-36.5 vnix=431) RED CELL DISTRIBUTION WIDTH (BEAKER) (test 16.9 % 11.6-14.4 wgpi=158) PLATELET COUNT (BEAKER) (test uggm=455) 36 K/CU MM 150-450 MEAN PLATELET VOLUME (BEAKER) (test knle=892) 13.0 fL 9.4-12.4 NUCLEATED RED BLOOD CELLS (BEAKER) (test 0 /100 WBC 0-0 yvbc=714) NEUTROPHILS RELATIVE PERCENT (BEAKER) (test 75 % mjdd=151) LYMPHOCYTES RELATIVE PERCENT (BEAKER) (test 12 % wgci=968) MONOCYTES RELATIVE PERCENT (BEAKER) (test 7 % wzsw=338) EOSINOPHILS RELATIVE PERCENT (BEAKER) (test 6 % rdgk=662) BASOPHILS RELATIVE PERCENT (BEAKER) (test 1 % hlqb=643) NEUTROPHILS ABSOLUTE COUNT (BEAKER) (test 3.27 K/ L 1.78-5.38 rshn=272) LYMPHOCYTES ABSOLUTE COUNT (BEAKER) (test 0.50 K/ L 1.32-3.57 fdwl=819) MONOCYTES ABSOLUTE COUNT (BEAKER) (test dgli=719) 0.28 K/ L 0.30-0.82 EOSINOPHILS ABSOLUTE COUNT (BEAKER) (test 0.26 K/ L 0.04-0.54 amfn=282) BASOPHILS ABSOLUTE COUNT (BEAKER) (test hase=959) 0.02 K/ L 0.01-0.08 IMMATURE GRANULOCYTES-RELATIVE PERCENT (BEAKER) 0 % 0-1 (test zihh=9595) POCT-GLUCOSE [id number] 00:36:00 Test Item Value Reference Range Comments POC-GLUCOSE METER (BEAKER) 137 mg/dL 70-110 TESTED AT [facility] [address] [facility] (test vjog=1274) [facility] [address] CREATINE KINASE (CK)2018-05-29 15:54:00 Test Item Value Reference Range Comments CREATINE KINASE TOTAL (BEAKER) (test wldl=385) 112 U/L 29-200 TROPONIN [id number] 15:36:00 Test Item Value Reference Range Comments TROPONIN I (BEAKER) (test tipt=361) 0.01 ng/mL 0.00-0.03 B-TYPE NATRIURETIC FACTOR (BNP)2018-05-29 15:33:00 Test Item Value Reference Range Comments B-TYPE NATRIURETIC PEPTIDE (BEAKER) (test 314 pg/mL 0-100 ibds=091) [id number] 15:30:00 Test Item Value Reference Range Comments MAGNESIUM (BEAKER) (test lzxu=232) 2.3 mg/dL 1.6-2.6 BASIC METABOLIC [id number] 15:30:00 Test Item Value Reference Range Comments SODIUM (BEAKER) (test 138 meq/L 136-145 psiv=046) POTASSIUM (BEAKER) (test 4.5 meq/L 3.5-5.1 rnck=839) CHLORIDE (BEAKER) (test 110 meq/L 98-107 ieno=970) CO2 (BEAKER) (test 20 meq/L 22-29 izsk=584) BLOOD UREA NITROGEN 44 mg/dL 7-21 (BEAKER) (test wnxy=000) CREATININE (BEAKER) (test 1.44 mg/dL 0.57-1.25 kthx=003) GLUCOSE RANDOM (BEAKER) 206 mg/dL 70-105 (test xaim=355) CALCIUM (BEAKER) (test 8.5 mg/dL 8.4-10.2 oxqn=110) EGFR (BEAKER) (test 49 mL/min/1.73 sq m ESTIMATED GFR IS NOT ejqk=4255) ACCURATE CREATININE CLEARANCE IN PREDICTING GLOMERULAR FILTRATION RATE. ESTIMATED GFR IS NOT APPLICABLE FOR DIALYSIS PATIENTS. HEPATIC FUNCTION [id number] 15:30:00 Test Item Value Reference Range Comments TOTAL PROTEIN (BEAKER) (test wvwb=224) 6.4 gm/dL 6.0-8.3 ALBUMIN (BEAKER) (test dklu=0635) 2.9 g/dL 3.5-5.0 BILIRUBIN TOTAL (BEAKER) (test rkdc=188) 1.8 mg/dL 0.2-1.2 BILIRUBIN DIRECT (BEAKER) (test nydu=741) 1.1 mg/dL 0.1-0.5 ALKALINE PHOSPHATASE (BEAKER) (test xyfs=805) 120 U/L 40-150 AST (SGOT) (BEAKER) (test vpwj=571) 47 U/L 5-34 ALT (SGPT) (BEAKER) (test tlua=825) 32 U/L 6-55 [id number] 15:26:00 Test Item Value Reference Range Comments AMMONIA (BEAKER) (test agpb=223) 72 mol/L 18-72 [id number] 15:12:00 Test Item Value Reference Range Comments PROTIME (BEAKER) (test mmrg=032) 17.7 seconds 11.7-14.7 INR (BEAKER) (test gjyo=905) 1.5 <=5.9 PARTIAL THROMBOPLASTIN TIME (BEAKER) (test 37.6 seconds 22.5-36.0 cjfm=830) RECOMMENDED COUMADIN/WARFARIN INR THERAPY RANGESSTANDARD DOSE: 2.0 - 3.0 Includes: PROPHYLAXIS forvenous thrombosis, systemic embolization; TREATMENT for venous thrombosis and/or pulmonary embolus.HIGH RISK: Target INR is 2.5-3.5 for patients with mechanical heart valves.CT, BRAIN, WITHOUT [id number] 15:06:00Reason for exam:->ALTERED MENTAL STATUSWhat is the patient's sedation requirement?->No SedationFINAL REPORT CT head without contrast 05/29/2018 3:05 PM CLINICAL HISTORY: EncephalopathyALTERED MENTAL STATUS TECHNIQUE: Axial noncontrast CT images through the head were obtained. This examination was performed according to our departmental dose optimization program, which includes automated exposure control, adjustment of the mA and/or kV according to patient size, and/or use of iterated reconstruction technique. COMPARISON: 04/23/2018 FINDINGS: There is no hemorrhage, extra-axial collection, mass, hydrocephalus, or midline shift. There is negligible microvascular ischemiain the supratentorial white matter. There is atherosclerotic calcification of the intracranial arterial vasculature. There is generalized parenchymal volume loss. The visualized paranasal sinuses and mastoid air cells are well aerated. The skull is intact. IMPRESSION: No intracranial hemorrhage or mass effect. Chronic appearing microvascular and involutional changes. If concern for acute pathology persists , further evaluation with MRI is recommended. Signed: Baltazar Castellanos Verified Date/Time: 05/29/2018 15:06:54 Reading Location: [facility] Radiology Reading Room Electronically signed by: BALTAZAR CASTELLANOS M.D. on 03:06 PMCBC W/PLT COUNT & AUTO [id number] 15:04:00 Test Item Value Reference Range Comments WHITE BLOOD CELL COUNT (BEAKER) (test dkyp=009) 4.0 K/ L 3.5-10.5 RED BLOOD CELL COUNT (BEAKER) (test yaki=917) 2.55 M/ L 4.63-6.08 HEMOGLOBIN (BEAKER) (test rrbj=084) 8.1 GM/DL 13.7-17.5 HEMATOCRIT (BEAKER) (test nzqp=515) 25.9 % 40.1-51.0 MEAN CORPUSCULAR VOLUME (BEAKER) (test azuf=937) 101.6 fL 79.0-92.2 MEAN CORPUSCULAR HEMOGLOBIN (BEAKER) (test 31.8 pg 25.7-32.2 zyxr=116) MEAN CORPUSCULAR HEMOGLOBIN CONC (BEAKER) (test 31.3 GM/DL 32.3-36.5 fbad=400) RED CELL DISTRIBUTION WIDTH (BEAKER) (test 16.6 % 11.6-14.4 opeu=243) PLATELET COUNT (BEAKER) (test jygd=049) 27 K/CU MM 150-450 MEAN PLATELET VOLUME (BEAKER) (test dofh=059) 12.2 fL 9.4-12.4 NUCLEATED RED BLOOD CELLS (BEAKER) (test 0 /100 WBC 0-0 nprz=042) NEUTROPHILS RELATIVE PERCENT (BEAKER) (test 85 % zyld=472) LYMPHOCYTES RELATIVE PERCENT (BEAKER) (test 7 % wsxu=073) MONOCYTES RELATIVE PERCENT (BEAKER) (test 6 % ultx=731) EOSINOPHILS RELATIVE PERCENT (BEAKER) (test 1 % sxpz=226) BASOPHILS RELATIVE PERCENT (BEAKER) (test 0 % fyqv=535) NEUTROPHILS ABSOLUTE COUNT (BEAKER) (test 3.38 K/ L 1.78-5.38 mnlx=107) LYMPHOCYTES ABSOLUTE COUNT (BEAKER) (test 0.28 K/ L 1.32-3.57 qabx=191) MONOCYTES ABSOLUTE COUNT (BEAKER) (test toke=343) 0.22 K/ L 0.30-0.82 EOSINOPHILS ABSOLUTE COUNT (BEAKER) (test 0.05 K/ L 0.04-0.54 hdco=728) BASOPHILS ABSOLUTE COUNT (BEAKER) (test asdc=196) 0.01 K/ L 0.01-0.08 IMMATURE GRANULOCYTES-RELATIVE PERCENT (BEAKER) 1 % 0-1 (test akrg=8760) POCT-GLUCOSE [id number] 14:20:00 Test Item Value Reference Range Comments POC-GLUCOSE METER (BEAKER) 221 mg/dL 70-110 TESTED AT [facility] [address] [place] [address] (test wkpd=0977) [facility] [address] BLOOD [id number] 00:00:00 Test Item Value Reference Range Comments CULTURE (BEAKER) (test ovdp=9024) No growth in 5 days BLOOD [id number] 00:00:00 Test Item Value Reference Range Comments CULTURE (BEAKER) (test mjgd=4659) No growth in 5 days POCT-GLUCOSE [id number] 11:53:00 Test Item Value Reference Range Comments POC-GLUCOSE METER (BEAKER) 259 mg/dL 70-110 TESTED AT [facility] [address] [facility] (test mhbn=5979) [facility] [address] HEMOGLOBIN [id number] 09:43:00 Test Item Value Reference Range Comments HEMOGLOBIN A1C (BEAKER) (test itsi=882) 5.9 % 4.3-6.1 POCT-GLUCOSE [id number] 08:14:00 Test Item Value Reference Range Comments POC-GLUCOSE METER (BEAKER) 122 mg/dL 70-110 TESTED AT [facility] [address] [facility] (test fzbo=7834) [facility] [address] [id number] 07:04:00 Test Item Value Reference Range Comments MAGNESIUM (BEAKER) (test cpzk=422) 2.3 mg/dL 1.6-2.6 BASIC METABOLIC [id number] 07:04:00 Test Item Value Reference Range Comments SODIUM (BEAKER) (test 140 meq/L 136-145 yijx=290) POTASSIUM (BEAKER) (test 4.0 meq/L 3.5-5.1 bmti=284) CHLORIDE (BEAKER) (test 113 meq/L 98-107 jfxn=242) CO2 (BEAKER) (test 19 meq/L 22-29 ildi=695) BLOOD UREA NITROGEN 31 mg/dL 7-21 (BEAKER) (test ywqv=203) CREATININE (BEAKER) (test 1.27 mg/dL 0.57-1.25 hgvk=503) GLUCOSE RANDOM (BEAKER) 75 mg/dL 70-105 (test kddt=023) CALCIUM (BEAKER) (test 9.1 mg/dL 8.4-10.2 whwb=937) EGFR (BEAKER) (test 56 mL/min/1.73 sq m ESTIMATED GFR IS NOT cfxo=0317) ACCURATE CREATININE CLEARANCE IN PREDICTING GLOMERULAR FILTRATION RATE. ESTIMATED GFR IS NOT APPLICABLE FOR DIALYSIS PATIENTS. Specimen slightly ictericHEPATIC FUNCTION [id number] 07:04:00 Test Item Value Reference Range Comments TOTAL PROTEIN (BEAKER) (test vfva=844) 6.5 gm/dL 6.0-8.3 ALBUMIN (BEAKER) (test jepm=2912) 3.1 g/dL 3.5-5.0 BILIRUBIN TOTAL (BEAKER) (test kgiq=734) 2.1 mg/dL 0.2-1.2 BILIRUBIN DIRECT (BEAKER) (test hhgy=087) 1.0 mg/dL 0.1-0.5 ALKALINE PHOSPHATASE (BEAKER) (test cokm=789) 111 U/L 40-150 AST (SGOT) (BEAKER) (test ydkq=302) 52 U/L 5-34 ALT (SGPT) (BEAKER) (test jgrs=618) 29 U/L 6-55 Specimen slightly ictericPROTHROMBIN [id number] 06:38:00 Test Item Value Reference Range Comments PROTIME (BEAKER) (test kwkr=398) 17.6 seconds 11.7-14.7 INR (BEAKER) (test wkdy=673) 1.5 <=5.9 RECOMMENDED COUMADIN/WARFARIN INR THERAPY RANGESSTANDARD DOSE: 2.0 - 3.0 Includes: PROPHYLAXIS forvenous thrombosis, systemic embolization; TREATMENT for venous thrombosis and/or pulmonary embolus.HIGH RISK: Target INR is 2.5-3.5 for patients with mechanical heart valves.CBC (HEMOGRAM ONLY)2018-04-25 06:27:00 Test Item Value Reference Range Comments WHITE BLOOD CELL COUNT (BEAKER) (test pzxt=710) 3.9 K/ L 3.5-10.5 RED BLOOD CELL COUNT (BEAKER) (test kjhi=002) 2.64 M/ L 4.63-6.08 HEMOGLOBIN (BEAKER) (test vngv=154) 8.5 GM/DL 13.7-17.5 HEMATOCRIT (BEAKER) (test gvab=372) 26.9 % 40.1-51.0 MEAN CORPUSCULAR VOLUME (BEAKER) (test afhp=774) 101.9 fL 79.0-92.2 MEAN CORPUSCULAR HEMOGLOBIN (BEAKER) (test 32.2 pg 25.7-32.2 nkzc=797) MEAN CORPUSCULAR HEMOGLOBIN CONC (BEAKER) (test 31.6 GM/DL 32.3-36.5 jjbo=232) RED CELL DISTRIBUTION WIDTH (BEAKER) (test 17.7 % 11.6-14.4 rzja=241) PLATELET COUNT (BEAKER) (test hczb=463) 42 K/CU MM 150-450 MEAN PLATELET VOLUME (BEAKER) (test tihl=231) 12.9 fL 9.4-12.4 NUCLEATED RED BLOOD CELLS (BEAKER) (test 0 /100 WBC 0-0 qxpo=983) POCT-GLUCOSE [id number] 22:07:00 Test Item Value Reference Range Comments POC-GLUCOSE METER (BEAKER) 211 mg/dL 70-110 TESTED AT [address] (test nlbb=4143) [facility] [address] POCT-GLUCOSE [id number] 18:31:00 Test Item Value Reference Range Comments POC-GLUCOSE METER (BEAKER) 136 mg/dL 70-110 TESTED AT [address] (test rsxp=9588) [facility] [address] POCT-GLUCOSE [id number] 16:06:00 Test Item Value Reference Range Comments POC-GLUCOSE METER (BEAKER) 236 mg/dL 70-110 TESTED AT [address] (test uuah=7080) [facility] [address] PROTHROMBIN [id number] 02:28:00 Test Item Value Reference Range Comments PROTIME (BEAKER) (test ifrt=971) 18.3 seconds 11.7-14.7 INR (BEAKER) (test kwmx=765) 1.5 <=5.9 RECOMMENDED COUMADIN/WARFARIN INR THERAPY RANGESSTANDARD DOSE: 2.0 - 3.0 Includes: PROPHYLAXIS forvenous thrombosis, systemic embolization; TREATMENT for venous thrombosis and/or pulmonary embolus.HIGH RISK: Target INR is 2.5-3.5 for patients with mechanical heart valves.[id number] 02:20:00 Test Item Value Reference Range Comments MAGNESIUM (BEAKER) (test nsoy=129) 2.4 mg/dL 1.6-2.6 BASIC METABOLIC [id number] 02:20:00 Test Item Value Reference Range Comments SODIUM (BEAKER) (test 141 meq/L 136-145 crjp=796) POTASSIUM (BEAKER) (test 3.7 meq/L 3.5-5.1 zcht=164) CHLORIDE (BEAKER) (test 112 meq/L 98-107 igqn=033) CO2 (BEAKER) (test 22 meq/L 22-29 ntdd=076) BLOOD UREA NITROGEN 41 mg/dL 7-21 (BEAKER) (test gsmq=957) CREATININE (BEAKER) (test 1.26 mg/dL 0.57-1.25 saxk=192) GLUCOSE RANDOM (BEAKER) 124 mg/dL 70-105 (test qndi=297) CALCIUM (BEAKER) (test 8.5 mg/dL 8.4-10.2 zdov=083) EGFR (BEAKER) (test 57 mL/min/1.73 sq m ESTIMATED GFR IS NOT jmhs=3095) ACCURATE CREATININE CLEARANCE IN PREDICTING GLOMERULAR FILTRATION RATE. ESTIMATED GFR IS NOT APPLICABLE FOR DIALYSIS PATIENTS. HEPATIC FUNCTION [id number] 02:20:00 Test Item Value Reference Range Comments TOTAL PROTEIN (BEAKER) (test drjh=732) 5.6 gm/dL 6.0-8.3 ALBUMIN (BEAKER) (test uqgo=8674) 2.6 g/dL 3.5-5.0 BILIRUBIN TOTAL (BEAKER) (test otfh=909) 2.0 mg/dL 0.2-1.2 BILIRUBIN DIRECT (BEAKER) (test cblz=371) 0.9 mg/dL 0.1-0.5 ALKALINE PHOSPHATASE (BEAKER) (test bwdk=568) 114 U/L 40-150 AST (SGOT) (BEAKER) (test pxeb=218) 41 U/L 5-34 ALT (SGPT) (BEAKER) (test wsfx=429) 25 U/L 6-55 CBC (HEMOGRAM ONLY)2018-04-24 02:05:00 Test Item Value Reference Range Comments WHITE BLOOD CELL COUNT (BEAKER) (test nfjp=599) 3.6 K/ L 3.5-10.5 RED BLOOD CELL COUNT (BEAKER) (test etwl=123) 2.39 M/ L 4.63-6.08 HEMOGLOBIN (BEAKER) (test moyr=755) 7.8 GM/DL 13.7-17.5 HEMATOCRIT (BEAKER) (test dyap=020) 23.8 % 40.1-51.0 MEAN CORPUSCULAR VOLUME (BEAKER) (test iojg=492) 99.6 fL 79.0-92.2 MEAN CORPUSCULAR HEMOGLOBIN (BEAKER) (test 32.6 pg 25.7-32.2 qsbm=273) MEAN CORPUSCULAR HEMOGLOBIN CONC (BEAKER) (test 32.8 GM/DL 32.3-36.5 xpdi=481) RED CELL DISTRIBUTION WIDTH (BEAKER) (test 17.4 % 11.6-14.4 pupf=547) PLATELET COUNT (BEAKER) (test vwxk=638) 38 K/CU MM 150-450 MEAN PLATELET VOLUME (BEAKER) (test hsfv=560) 12.5 fL 9.4-12.4 NUCLEATED RED BLOOD CELLS (BEAKER) (test 0 /100 WBC 0-0 ebkq=485) POCT-GLUCOSE [id number] 22:50:00 Test Item Value Reference Range Comments POC-GLUCOSE METER (BEAKER) 146 mg/dL 70-110 TESTED AT [facility] [address] [facility] (test iobm=2096) [facility] [address] [address], BRAIN, WITHOUT [id number] 19:45:00Reason for exam:->headacheWhat is the patient's sedation requirement?->No SedationFINAL REPORT CT head without contrast 04/23/2018 7:44 PM CLINICAL HISTORY: Confusion/delirium, altered LOC, unexplainedheadache TECHNIQUE: Axial noncontrast CT images through thehead were obtained. This examination was performed according to our departmental dose optimization program, which includes automated exposure control, adjustment of the mA and/or kV according to patient size, and/or use of iterated reconstruction technique. COMPARISON: 02/19/2018 FINDINGS: There is no hemorrhage, extra-axial collection, mass, hydrocephalus, or midline shift. There is negligible microvascular ischemia in the supratentorial white matter. There is atherosclerotic calcification of the intracranial arterial vasculature. There is generalized parenchymal volume loss. The visualized paranasal sinuses and mastoid air cells are well aerated. The skull is intact. IMPRESSION: No intracranial hemorrhage or mass effect. Chronic appearing microvascular and involutional changes. If concern for acute pathology persists, further evaluation with MRI is recommended. Signed: Baltazar Castellanos Verified Date/Time: 04/23/2018 19:45:43 Reading Location: [facility] Radiology Reading Room URINALYSIS W/ [id number] 19:36:00 Test Item Value Reference Range Comments COLOR (BEAKER) (test ddos=173) Light Yellow CLARITY (BEAKER) (test jmup=526) Clear SPECIFIC GRAVITY UA (BEAKER) (test ygcf=631) 1.006 1.001-1.035 PH UA (BEAKER) (test lpsb=722) 6.0 5.0-8.0 PROTEIN UA (BEAKER) (test swsx=667) Negative Negative GLUCOSE UA (BEAKER) (test pkke=535) Negative Negative KETONES UA (BEAKER) (test qspx=226) Negative Negative BILIRUBIN UA (BEAKER) (test synw=380) Negative Negative BLOOD UA (BEAKER) (test rder=579) Small Negative NITRITE UA (BEAKER) (test nbaz=637) Negative Negative LEUKOCYTE ESTERASE UA (BEAKER) (test qiga=389) Negative Negative UROBILINOGEN UA (BEAKER) (test bily=674) 0.2 mg/dL 0.2-1.0 RBC UA (BEAKER) (test espv=740) 2 /HPF WBC UA (BEAKER) (test uaur=407) < /HPF BACTERIA (BEAKER) (test pwtw=626) Rare SOURCE(BEAKER) (test sipg=9251) [id number] 19:01:00 Test Item Value Reference Range Comments PHOSPHORUS (BEAKER) (test djee=270) 3.0 mg/dL 2.3-4.7 BASIC METABOLIC [id number] 19:01:00 Test Item Value Reference Range Comments SODIUM (BEAKER) (test 137 meq/L 136-145 hwex=909) POTASSIUM (BEAKER) (test 4.1 meq/L 3.5-5.1 lrzm=496) CHLORIDE (BEAKER) (test 108 meq/L 98-107 dwjp=858) CO2 (BEAKER) (test 21 meq/L 22-29 zelo=672) BLOOD UREA NITROGEN 42 mg/dL 7-21 (BEAKER) (test jujl=304) CREATININE (BEAKER) (test 1.43 mg/dL 0.57-1.25 insp=530) GLUCOSE RANDOM (BEAKER) 169 mg/dL 70-105 (test iyjk=064) CALCIUM (BEAKER) (test 8.7 mg/dL 8.4-10.2 hjjl=512) EGFR (BEAKER) (test 49 mL/min/1.73 sq m ESTIMATED GFR IS NOT qakw=3494) ACCURATE CREATININE CLEARANCE IN PREDICTING GLOMERULAR FILTRATION RATE. ESTIMATED GFR IS NOT APPLICABLE FOR DIALYSIS PATIENTS. Specimen slightly ictericHEPATIC FUNCTION [id number] 19:01:00 Test Item Value Reference Range Comments TOTAL PROTEIN (BEAKER) (test yzlv=136) 6.6 gm/dL 6.0-8.3 ALBUMIN (BEAKER) (test fcxf=1128) 3.0 g/dL 3.5-5.0 BILIRUBIN TOTAL (BEAKER) (test zwuc=506) 2.1 mg/dL 0.2-1.2 BILIRUBIN DIRECT (BEAKER) (test enmy=129) 1.1 mg/dL 0.1-0.5 ALKALINE PHOSPHATASE (BEAKER) (test fdra=193) 142 U/L 40-150 AST (SGOT) (BEAKER) (test fkwb=433) 47 U/L 5-34 ALT (SGPT) (BEAKER) (test ucvk=597) 28 U/L 6-55 Specimen slightly [id number] 19:01:00 Test Item Value Reference Range Comments LIPASE (BEAKER) (test okqa=968) 70 U/L 8-78 Specimen slightly ictericRAD, CHEST, PA OR AP, 1 [id number] 18:59:00Reason for exam:->chest painShould this be performed at the bedside?->YesFINAL REPORT Chest dated 04/23/2018 COMPARISON: February 19, 2018 Clinical Information: chest pain Comment: Heart is upper limits of normal in size. Pulmonary vasculature is indistinct. Interstitial disease is seen bilaterally suggestive pulmonary edema. No pleural effusion or pneumothorax is seen. Impression: No interval change. Signed: Smith Palomino MDReport Verified Date /Time: 04/23/2018 18:59:55 Reading Location: [facility] Consult Reading Room PT/ [id number] 18:57:00 Test Item Value Reference Range Comments PROTIME (BEAKER) (test ntug=591) 17.3 seconds 11.7-14.7 INR (BEAKER) (test tjvk=192) 1.4 <=5.9 PARTIAL THROMBOPLASTIN TIME (BEAKER) (test 36.0 seconds 22.5-36.0 tgiv=274) RECOMMENDED COUMADIN/WARFARIN INR THERAPY RANGESSTANDARD DOSE: 2.0 - 3.0 Includes: PROPHYLAXIS forvenous thrombosis, systemic embolization; TREATMENT for venous thrombosis and/or pulmonary embolus.HIGH RISK: Target INR is 2.5-3.5 for patients with mechanical heart valves.[id number] 18:52:00 Test Item Value Reference Range Comments AMMONIA (BEAKER) (test ipup=152) 45 mol/L 18-72 CBC W/PLT COUNT & AUTO [id number] 18:47:00 Test Item Value Reference Range Comments WHITE BLOOD CELL COUNT (BEAKER) (test zqfr=714) 4.2 K/ L 3.5-10.5 RED BLOOD CELL COUNT (BEAKER) (test fsfs=980) 2.80 M/ L 4.63-6.08 HEMOGLOBIN (BEAKER) (test yofq=914) 8.9 GM/DL 13.7-17.5 HEMATOCRIT (BEAKER) (test fooo=704) 27.7 % 40.1-51.0 MEAN CORPUSCULAR VOLUME (BEAKER) (test rzsl=625) 98.9 fL 79.0-92.2 MEAN CORPUSCULAR HEMOGLOBIN (BEAKER) (test 31.8 pg 25.7-32.2 nksc=007) MEAN CORPUSCULAR HEMOGLOBIN CONC (BEAKER) (test 32.1 GM/DL 32.3-36.5 myhh=782) RED CELL DISTRIBUTION WIDTH (BEAKER) (test 17.2 % 11.6-14.4 qgmj=210) PLATELET COUNT (BEAKER) (test vaeb=729) 35 K/CU MM 150-450 MEAN PLATELET VOLUME (BEAKER) (test mpln=688) 11.8 fL 9.4-12.4 NUCLEATED RED BLOOD CELLS (BEAKER) (test 0 /100 WBC 0-0 ykds=773) NEUTROPHILS RELATIVE PERCENT (BEAKER) (test 79 % qauk=015) LYMPHOCYTES RELATIVE PERCENT (BEAKER) (test 9 % ghdr=131) MONOCYTES RELATIVE PERCENT (BEAKER) (test 7 % fgyp=078) EOSINOPHILS RELATIVE PERCENT (BEAKER) (test 3 % kuad=020) BASOPHILS RELATIVE PERCENT (BEAKER) (test 1 % udzo=634) NEUTROPHILS ABSOLUTE COUNT (BEAKER) (test 3.32 K/ L 1.78-5.38 rmte=623) LYMPHOCYTES ABSOLUTE COUNT (BEAKER) (test 0.39 K/ L 1.32-3.57 fqqk=888) MONOCYTES ABSOLUTE COUNT (BEAKER) (test fmun=356) 0.31 K/ L 0.30-0.82 EOSINOPHILS ABSOLUTE COUNT (BEAKER) (test 0.14 K/ L 0.04-0.54 hbnh=752) BASOPHILS ABSOLUTE COUNT (BEAKER) (test zpms=153) 0.02 K/ L 0.01-0.08 IMMATURE GRANULOCYTES-RELATIVE PERCENT (BEAKER) 0 % 0-1 (test wwjk=9225) ALPHA FETOPROTEIN (AFP), TUMOR [id number] 14:39:00 Test Item Value Reference Range Comments ALPHA-FETOPROTEIN (BEAKER) (test uruf=8944) < ng/mL <10.0 COMPREHENSIVE METABOLIC [id number] 14:00:00 Test Item Value Reference Range Comments TOTAL PROTEIN (BEAKER) 6.7 gm/dL 6.0-8.3 (test wjtp=276) ALBUMIN (BEAKER) (test 3.1 g/dL 3.5-5.0 emam=0175) ALKALINE PHOSPHATASE 144 U/L 40-150 (BEAKER) (test hzwp=801) BILIRUBIN TOTAL (BEAKER) 2.1 mg/dL 0.2-1.2 (test piqq=494) SODIUM (BEAKER) (test 137 meq/L 136-145 fnpx=049) POTASSIUM (BEAKER) (test 3.8 meq/L 3.5-5.1 qrdp=984) CHLORIDE (BEAKER) (test 105 meq/L 98-107 qopl=071) CO2 (BEAKER) (test 26 meq/L 22-29 bqfk=313) BLOOD UREA NITROGEN 43 mg/dL 7-21 (BEAKER) (test rtdd=283) CREATININE (BEAKER) (test 1.57 mg/dL 0.57-1.25 glqj=552) GLUCOSE RANDOM (BEAKER) 222 mg/dL 70-105 (test afyi=926) CALCIUM (BEAKER) (test 8.9 mg/dL 8.4-10.2 ajbi=576) AST (SGOT) (BEAKER) (test 43 U/L 5-34 hfrp=055) ALT (SGPT) (BEAKER) (test 27 U/L 6-55 nycg=427) EGFR (BEAKER) (test 44 mL/min/1.73 sq m ESTIMATED GFR IS NOT lbdh=5127) ACCURATE CREATININE CLEARANCE IN PREDICTING GLOMERULAR FILTRATION RATE. ESTIMATED GFR IS NOT APPLICABLE FOR DIALYSIS PATIENTS. BILIRUBIN, [id number] 14:00:00 Test Item Value Reference Range Comments BILIRUBIN DIRECT (BEAKER) (test bxhe=440) 1.1 mg/dL 0.1-0.5 CBC W/PLT COUNT & AUTO [id number] 13:53:00 Test Item Value Reference Range Comments WHITE BLOOD CELL COUNT 5.2 K/ L 3.5-10.5 (BEAKER) (test tmbc=395) RED BLOOD CELL COUNT (BEAKER) 2.93 M/ L 4.63-6.08 (test kzyv=303) HEMOGLOBIN (BEAKER) (test 9.3 GM/DL 13.7-17.5 jzao=655) HEMATOCRIT (BEAKER) (test 29.5 % 40.1-51.0 ojgi=520) MEAN CORPUSCULAR VOLUME 100.7 fL 79.0-92.2 (BEAKER) (test kaun=137) MEAN CORPUSCULAR HEMOGLOBIN 31.7 pg 25.7-32.2 (BEAKER) (test yzxm=547) MEAN CORPUSCULAR HEMOGLOBIN 31.5 GM/DL 32.3-36.5 CONC (BEAKER) (test fwcf=506) RED CELL DISTRIBUTION WIDTH 17.4 % 11.6-14.4 (BEAKER) (test rirz=153) PLATELET COUNT (BEAKER) (test 34 K/CU MM 150-450 wtae=085) MEAN PLATELET VOLUME (BEAKER) fL 9.4-12.4 Unable to report due to (test btsj=183) abnormal Platelet population distribution. NUCLEATED RED BLOOD CELLS 0 /100 WBC 0-0 (BEAKER) (test adbk=475) NEUTROPHILS RELATIVE PERCENT 77 % (BEAKER) (test unna=392) LYMPHOCYTES RELATIVE PERCENT 7 % (BEAKER) (test mmdk=730) MONOCYTES RELATIVE PERCENT 9 % (BEAKER) (test tpxz=246) EOSINOPHILS RELATIVE PERCENT 6 % (BEAKER) (test suoj=483) BASOPHILS RELATIVE PERCENT 0 % (BEAKER) (test iilu=016) NEUTROPHILS ABSOLUTE COUNT 3.98 K/ L 1.78-5.38 (BEAKER) (test zkxj=993) LYMPHOCYTES ABSOLUTE COUNT 0.38 K/ L 1.32-3.57 (BEAKER) (test bqmx=485) MONOCYTES ABSOLUTE COUNT 0.46 K/ L 0.30-0.82 (BEAKER) (test iwrv=352) EOSINOPHILS ABSOLUTE COUNT 0.32 K/ L 0.04-0.54 (BEAKER) (test ttyd=314) BASOPHILS ABSOLUTE COUNT 0.01 K/ L 0.01-0.08 (BEAKER) (test xlut=491) IMMATURE GRANULOCYTES-RELATIVE 0 % 0-1 PERCENT (BEAKER) (test feph=1316) PROTHROMBIN [id number] 13:41:00 Test Item Value Reference Range Comments PROTIME (BEAKER) (test bliw=804) 16.9 seconds 11.7-14.7 INR (BEAKER) (test egkz=618) 1.4 <=5.9 RECOMMENDED COUMADIN/WARFARIN INR THERAPY RANGESSTANDARD DOSE: 2.0 - 3.0 Includes: PROPHYLAXIS forvenous thrombosis, systemic embolization; TREATMENT for venous thrombosis and/or pulmonary embolus.HIGH RISK: Target INR is 2.5-3.5 for patients with mechanical heart valves.BLOOD [id number] 00:00:00 Test Item Value Reference Range Comments CULTURE (BEAKER) (test sdip=5746) No growth in 5 days BLOOD [id number] 00:00:00 Test Item Value Reference Range Comments CULTURE (BEAKER) (test txmd=7344) No growth in 5 days POCT-GLUCOSE [id number] 12:19:00 Test Item Value Reference Range Comments POC-GLUCOSE METER (BEAKER) 224 mg/dL 70-110 TESTED AT [address] (test ftjc=9958) [place] [address] POCT-GLUCOSE [id number] 08:04:00 Test Item Value Reference Range Comments POC-GLUCOSE METER (BEAKER) 112 mg/dL 70-110 TESTED AT [address] (test risc=1604) [place] [address] COMPREHENSIVE METABOLIC [id number] 06:19:00 Test Item Value Reference Range Comments TOTAL PROTEIN (BEAKER) 6.1 gm/dL 6.0-8.3 (test dgov=205) ALBUMIN (BEAKER) (test 2.9 g/dL 3.5-5.0 fcrl=8551) ALKALINE PHOSPHATASE 102 U/L 40-150 (BEAKER) (test ycom=867) BILIRUBIN TOTAL (BEAKER) 1.7 mg/dL 0.2-1.2 (test ngwj=958) SODIUM (BEAKER) (test 139 meq/L 136-145 ieim=193) POTASSIUM (BEAKER) (test 3.7 meq/L 3.5-5.1 pqlg=995) CHLORIDE (BEAKER) (test 107 meq/L 98-107 dmya=450) CO2 (BEAKER) (test 23 meq/L 22-29 mulv=761) BLOOD UREA NITROGEN 40 mg/dL 7-21 (BEAKER) (test xukh=441) CREATININE (BEAKER) (test 1.65 mg/dL 0.57-1.25 ucax=269) GLUCOSE RANDOM (BEAKER) 144 mg/dL 70-105 (test irnu=393) CALCIUM (BEAKER) (test 9.0 mg/dL 8.4-10.2 kizd=516) AST (SGOT) (BEAKER) (test 45 U/L 5-34 gryd=190) ALT (SGPT) (BEAKER) (test 22 U/L 6-55 ugsr=349) EGFR (BEAKER) (test 42 mL/min/1.73 sq m ESTIMATED GFR IS NOT pdcr=7488) ACCURATE CREATININE CLEARANCE IN PREDICTING GLOMERULAR FILTRATION RATE. ESTIMATED GFR IS NOT APPLICABLE FOR DIALYSIS PATIENTS. CBC (HEMOGRAM ONLY)2018-03-11 05:48:00 Test Item Value Reference Range Comments WHITE BLOOD CELL COUNT (BEAKER) (test gvff=249) 2.9 K/ L 3.5-10.5 RED BLOOD CELL COUNT (BEAKER) (test jerv=371) 2.62 M/ L 4.63-6.08 HEMOGLOBIN (BEAKER) (test paqh=757) 8.2 GM/DL 13.7-17.5 HEMATOCRIT (BEAKER) (test gspi=461) 25.8 % 40.1-51.0 MEAN CORPUSCULAR VOLUME (BEAKER) (test kqmg=755) 98.5 fL 79.0-92.2 MEAN CORPUSCULAR HEMOGLOBIN (BEAKER) (test 31.3 pg 25.7-32.2 nina=224) MEAN CORPUSCULAR HEMOGLOBIN CONC (BEAKER) (test 31.8 GM/DL 32.3-36.5 aody=348) RED CELL DISTRIBUTION WIDTH (BEAKER) (test 17.0 % 11.6-14.4 qhlq=454) PLATELET COUNT (BEAKER) (test ehzc=226) 43 K/CU MM 150-450 MEAN PLATELET VOLUME (BEAKER) (test jkkm=089) 13.2 fL 9.4-12.4 NUCLEATED RED BLOOD CELLS (BEAKER) (test 0 /100 WBC 0-0 ipwg=685) POCT-GLUCOSE [id number] 21:15:00 Test Item Value Reference Range Comments POC-GLUCOSE METER (BEAKER) 198 mg/dL 70-110 TESTED AT [address] (test efqd=9826) [facility] [address] URINALYSIS W/ REFLEX URINE [id number] 18:11:00 Test Item Value Reference Range Comments COLOR (BEAKER) (test xvfp=224) Light Yellow CLARITY (BEAKER) (test tqab=772) Clear SPECIFIC GRAVITY UA (BEAKER) (test cqsq=245) 1.006 1.001-1.035 PH UA (BEAKER) (test rvga=440) 5.5 5.0-8.0 PROTEIN UA (BEAKER) (test xosj=951) Negative Negative GLUCOSE UA (BEAKER) (test sjub=874) Negative Negative KETONES UA (BEAKER) (test dtrf=903) Negative Negative BILIRUBIN UA (BEAKER) (test fmwc=472) Negative Negative BLOOD UA (BEAKER) (test enkj=743) Small Negative NITRITE UA (BEAKER) (test udfd=295) Negative Negative LEUKOCYTE ESTERASE UA (BEAKER) (test jmze=123) Negative Negative UROBILINOGEN UA (BEAKER) (test zmwa=926) 0.2 mg/dL 0.2-1.0 RBC UA (BEAKER) (test hpbn=694) 7 /HPF WBC UA (BEAKER) (test tfsx=208) 0 /HPF HYALINE CASTS (BEAKER) (test whzf=052) 4 /LPF SOURCE(BEAKER) (test duty=4673) RAD, ANKLE, MIN 3 VIEWS, [id number] 14:45:00Reason for exam:->r ankle painFINAL REPORT HISTORY: Right ankle pain COMPARISON: None DISCUSSION: AP, lateral and oblique views of the right ankle were obtained. There are no fractures or dislocations. No lytic or blastic abnormalities are seen. No radiopaque foreign bodies. Extensive vascular calcificationsare seen. There are osteoarthritic degenerative changes. A nonspecific calcification is seen in the soft tissues between the distal tibia and fibula. IMPRESSION: No acute osseous abnormalities of the right ankle. There are osteoarthritic degenerative changes. Signed: Celena Clark MDReport Verified Date/Time: 03/10/2018 14:45:04 Reading Location: [address] Consult Reading Room Electronicallysigned by: CELENA CLARK M.D. on 03/10/2018 02: 45 PMB-TYPE NATRIURETIC FACTOR (BNP)2018-03-10 12:49:00 Test Item Value Reference Range Comments B-TYPE NATRIURETIC PEPTIDE (BEAKER) (test 650 pg/mL 0-100 dufx=315) [id number] 12:44:00 Test Item Value Reference Range Comments AMMONIA (BEAKER) (test cgmx=757) 30 mol/L 18-72 COMPREHENSIVE METABOLIC [id number] 12:42:00 Test Item Value Reference Range Comments TOTAL PROTEIN (BEAKER) 7.0 gm/dL 6.0-8.3 (test omxk=410) ALBUMIN (BEAKER) (test 3.1 g/dL 3.5-5.0 xyut=0578) ALKALINE PHOSPHATASE 131 U/L 40-150 (BEAKER) (test tlqm=203) BILIRUBIN TOTAL (BEAKER) 1.9 mg/dL 0.2-1.2 (test mjlj=651) SODIUM (BEAKER) (test 138 meq/L 136-145 cbnp=036) POTASSIUM (BEAKER) (test 3.7 meq/L 3.5-5.1 fiot=304) CHLORIDE (BEAKER) (test 105 meq/L 98-107 xrny=970) CO2 (BEAKER) (test 25 meq/L 22-29 cril=100) BLOOD UREA NITROGEN 42 mg/dL 7-21 (BEAKER) (test zejx=720) CREATININE (BEAKER) (test 1.82 mg/dL 0.57-1.25 whap=188) GLUCOSE RANDOM (BEAKER) 211 mg/dL 70-105 (test bzlj=438) CALCIUM (BEAKER) (test 8.8 mg/dL 8.4-10.2 xtue=540) AST (SGOT) (BEAKER) (test 49 U/L 5-34 akru=667) ALT (SGPT) (BEAKER) (test 30 U/L 6-55 dsae=839) EGFR (BEAKER) (test 37 mL/min/1.73 sq m ESTIMATED GFR IS NOT pacw=5938) ACCURATE CREATININE CLEARANCE IN PREDICTING GLOMERULAR FILTRATION RATE. ESTIMATED GFR IS NOT APPLICABLE FOR DIALYSIS PATIENTS. [id number] 12:27:00 Test Item Value Reference Range Comments PROTIME (BEAKER) (test cgml=694) 17.4 seconds 11.7-14.7 INR (BEAKER) (test upbn=964) 1.4 <=5.9 PARTIAL THROMBOPLASTIN TIME (BEAKER) (test 33.1 seconds 22.5-36.0 qgtm=406) RECOMMENDED COUMADIN/WARFARIN INR THERAPY RANGESSTANDARD DOSE: 2.0 - 3.0 Includes: PROPHYLAXIS forvenous thrombosis, systemic embolization; TREATMENT for venous thrombosis and/or pulmonary embolus.HIGH RISK: Target INR is 2.5-3.5 for patients with mechanical heart valves.CBC W/PLT COUNT & AUTO [id number] 12:19:00 Test Item Value Reference Range Comments WHITE BLOOD CELL COUNT (BEAKER) (test tqpc=182) 4.9 K/ L 3.5-10.5 RED BLOOD CELL COUNT (BEAKER) (test pver=158) 2.90 M/ L 4.63-6.08 HEMOGLOBIN (BEAKER) (test wxsd=822) 9.0 GM/DL 13.7-17.5 HEMATOCRIT (BEAKER) (test xzgb=268) 28.5 % 40.1-51.0 MEAN CORPUSCULAR VOLUME (BEAKER) (test dffs=886) 98.3 fL 79.0-92.2 MEAN CORPUSCULAR HEMOGLOBIN (BEAKER) (test 31.0 pg 25.7-32.2 xrdy=415) MEAN CORPUSCULAR HEMOGLOBIN CONC (BEAKER) (test 31.6 GM/DL 32.3-36.5 mfta=494) RED CELL DISTRIBUTION WIDTH (BEAKER) (test 17.2 % 11.6-14.4 mxvr=225) PLATELET COUNT (BEAKER) (test yxjt=234) 53 K/CU MM 150-450 MEAN PLATELET VOLUME (BEAKER) (test dfil=044) 12.5 fL 9.4-12.4 NUCLEATED RED BLOOD CELLS (BEAKER) (test 0 /100 WBC 0-0 xlyx=703) NEUTROPHILS RELATIVE PERCENT (BEAKER) (test 73 % izol=203) LYMPHOCYTES RELATIVE PERCENT (BEAKER) (test 12 % yono=396) MONOCYTES RELATIVE PERCENT (BEAKER) (test 9 % bgsi=819) EOSINOPHILS RELATIVE PERCENT (BEAKER) (test 6 % qxxb=044) BASOPHILS RELATIVE PERCENT (BEAKER) (test 0 % ciue=605) NEUTROPHILS ABSOLUTE COUNT (BEAKER) (test 3.58 K/ L 1.78-5.38 shgx=840) LYMPHOCYTES ABSOLUTE COUNT (BEAKER) (test 0.58 K/ L 1.32-3.57 zjrm=005) MONOCYTES ABSOLUTE COUNT (BEAKER) (test bajl=538) 0.42 K/ L 0.30-0.82 EOSINOPHILS ABSOLUTE COUNT (BEAKER) (test 0.28 K/ L 0.04-0.54 clqf=551) BASOPHILS ABSOLUTE COUNT (BEAKER) (test sqqx=302) 0.02 K/ L 0.01-0.08 IMMATURE GRANULOCYTES-RELATIVE PERCENT (BEAKER) 0 % 0-1 (test dtbl=8860) BLOOD [id number] 18:00:00 Test Item Value Reference Range Comments CULTURE (BEAKER) (test xrur=9828) No growth in 5 days BLOOD [id number] 18:00:00 Test Item Value Reference Range Comments CULTURE (BEAKER) (test gmzu=4075) No growth in 5 days POCT-GLUCOSE [id number] 12:29:00 Test Item Value Reference Range Comments POC-GLUCOSE METER (BEAKER) 207 mg/dL 70-110 TESTED AT [facility] [address] [facility] (test hask=9697) [facility] [address] POCT-GLUCOSE [id number] 08:01:00 Test Item Value Reference Range Comments POC-GLUCOSE METER (BEAKER) 150 mg/dL 70-110 TESTED AT [facility] [address] (test mnog=6558) [facility] [address] ALPHA FETOPROTEIN (AFP), TUMOR [id number] 07:22:00 Test Item Value Reference Range Comments ALPHA-FETOPROTEIN (BEAKER) (test zrok=5455) < ng/mL <10.0 [id number] 06:49:00 Test Item Value Reference Range Comments MAGNESIUM (BEAKER) (test qsua=144) 1.7 mg/dL 1.6-2.6 BASIC METABOLIC [id number] 06:49:00 Test Item Value Reference Range Comments SODIUM (BEAKER) (test 134 meq/L 136-145 luvc=340) POTASSIUM (BEAKER) (test 4.1 meq/L 3.5-5.1 degy=688) CHLORIDE (BEAKER) (test 104 meq/L 98-107 tffo=990) CO2 (BEAKER) (test 24 meq/L 22-29 llgp=532) BLOOD UREA NITROGEN 32 mg/dL 7-21 (BEAKER) (test hkqf=406) CREATININE (BEAKER) (test 1.42 mg/dL 0.57-1.25 aqff=221) GLUCOSE RANDOM (BEAKER) 138 mg/dL 70-105 (test xtbk=886) CALCIUM (BEAKER) (test 8.3 mg/dL 8.4-10.2 nybw=666) EGFR (BEAKER) (test 50 mL/min/1.73 sq m ESTIMATED GFR IS NOT rcdc=2498) ACCURATE CREATININE CLEARANCE IN PREDICTING GLOMERULAR FILTRATION RATE. ESTIMATED GFR IS NOT APPLICABLE FOR DIALYSIS PATIENTS. HEPATIC FUNCTION [id number] 06:49:00 Test Item Value Reference Range Comments TOTAL PROTEIN (BEAKER) (test taiw=426) 6.0 gm/dL 6.0-8.3 ALBUMIN (BEAKER) (test yefk=6089) 2.7 g/dL 3.5-5.0 BILIRUBIN TOTAL (BEAKER) (test hakt=713) 1.9 mg/dL 0.2-1.2 BILIRUBIN DIRECT (BEAKER) (test xbmp=733) 0.9 mg/dL 0.1-0.5 ALKALINE PHOSPHATASE (BEAKER) (test hufg=367) 104 U/L 40-150 AST (SGOT) (BEAKER) (test pthn=798) 35 U/L 5-34 ALT (SGPT) (BEAKER) (test zukn=896) 22 U/L 6-55 PROTHROMBIN [id number] 06:31:00 Test Item Value Reference Range Comments PROTIME (BEAKER) (test pndo=694) 17.6 seconds 11.7-14.7 INR (BEAKER) (test osxn=653) 1.5 <=5.9 RECOMMENDED COUMADIN/WARFARIN INR THERAPY RANGESSTANDARD DOSE: 2.0 - 3.0 Includes: PROPHYLAXIS forvenous thrombosis, systemic embolization; TREATMENT for venous thrombosis and/or pulmonary embolus.HIGH RISK: Target INR is 2.5-3.5 for patients with mechanical heart valves.CBC W/PLT COUNT & AUTO [id number] 06:23:00 Test Item Value Reference Range Comments WHITE BLOOD CELL COUNT (BEAKER) (test xouy=915) 4.1 K/ L 3.5-10.5 RED BLOOD CELL COUNT (BEAKER) (test sptl=127) 2.55 M/ L 4.63-6.08 HEMOGLOBIN (BEAKER) (test eonh=874) 7.9 GM/DL 13.7-17.5 HEMATOCRIT (BEAKER) (test mapg=687) 25.0 % 40.1-51.0 MEAN CORPUSCULAR VOLUME (BEAKER) (test cgtc=424) 98.0 fL 79.0-92.2 MEAN CORPUSCULAR HEMOGLOBIN (BEAKER) (test 31.0 pg 25.7-32.2 rqjd=283) MEAN CORPUSCULAR HEMOGLOBIN CONC (BEAKER) (test 31.6 GM/DL 32.3-36.5 cmbj=199) RED CELL DISTRIBUTION WIDTH (BEAKER) (test 16.8 % 11.6-14.4 voju=901) PLATELET COUNT (BEAKER) (test loeu=226) 43 K/CU MM 150-450 MEAN PLATELET VOLUME (BEAKER) (test qnic=123) 10.8 fL 9.4-12.4 NUCLEATED RED BLOOD CELLS (BEAKER) (test 0 /100 WBC 0-0 hqmk=765) NEUTROPHILS RELATIVE PERCENT (BEAKER) (test 71 % qhcu=569) LYMPHOCYTES RELATIVE PERCENT (BEAKER) (test 12 % xlkf=422) MONOCYTES RELATIVE PERCENT (BEAKER) (test 9 % ierj=496) EOSINOPHILS RELATIVE PERCENT (BEAKER) (test 8 % oifh=557) BASOPHILS RELATIVE PERCENT (BEAKER) (test 0 % xlwh=917) NEUTROPHILS ABSOLUTE COUNT (BEAKER) (test 2.90 K/ L 1.78-5.38 grna=486) LYMPHOCYTES ABSOLUTE COUNT (BEAKER) (test 0.47 K/ L 1.32-3.57 atmg=671) MONOCYTES ABSOLUTE COUNT (BEAKER) (test tqul=764) 0.35 K/ L 0.30-0.82 EOSINOPHILS ABSOLUTE COUNT (BEAKER) (test 0.33 K/ L 0.04-0.54 maps=898) BASOPHILS ABSOLUTE COUNT (BEAKER) (test nydb=985) 0.01 K/ L 0.01-0.08 IMMATURE GRANULOCYTES-RELATIVE PERCENT (BEAKER) 0 % 0-1 (test ofbq=3654) POCT-GLUCOSE [id number] 21:17:00 Test Item Value Reference Range Comments POC-GLUCOSE METER (BEAKER) 219 mg/dL 70-110 TESTED AT [facility] [address] [facility] (test gzbz=6726) [place] [address] POCT-GLUCOSE [id number] 17:24:00 Test Item Value Reference Range Comments POC-GLUCOSE METER (BEAKER) 279 mg/dL 70-110 TESTED AT [place] [id number] [facility] (test xrzh=2628) [place] [address] U/S, ABDOMINAL, [id number] 17:11:00Diagnostic paracentesis to r/o bacterial peritonitis.Reason for exam:->ascites; rule out sbpFINAL REPORT Limited abdominal ultrasound Clinical History: Ascites, rule outSBP Technique: Limited abdominal ultrasound is performed in all four quadrants to assess for presence of ascites in anticipation of paracentesis. No significant ascites identified. Impression: No significant ascites. Paracentesis was not performed. Signed: Ralph Larose MDReport Verified Date/Time : 02/20/2018 17:11:22 Reading Location: [address] Ultrasound Reading Room [id number] 15:07:00 Test Item Value Reference Range Comments PREALBUMIN (BEAKER) (test vuhs=638) 9 mg/dL 14-45 Listed for OLT - Nutrition Surveillance ([facility] Hepatology Transplant Team)POCT- GLUCOSE [id number] 12:03:00 Test Item Value Reference Range Comments POC-GLUCOSE METER (BEAKER) 215 mg/dL 70-110 TESTED AT [facility] [address] [facility] (test qwdi=6469) [facility] [address] POCT-GLUCOSE [id number] 10:58:00 Test Item Value Reference Range Comments POC-GLUCOSE METER (BEAKER) 231 mg/dL 70-110 TESTED AT [facility] [address] [facility] (test sqjf=4439) [facility] [address] [id number] 03:38:00 Test Item Value Reference Range Comments MAGNESIUM (BEAKER) (test pibw=720) 1.9 mg/dL 1.6-2.6 BASIC METABOLIC [id number] 03:38:00 Test Item Value Reference Range Comments SODIUM (BEAKER) (test 133 meq/L 136-145 sgsl=241) POTASSIUM (BEAKER) (test 3.5 meq/L 3.5-5.1 rmnq=495) CHLORIDE (BEAKER) (test 102 meq/L 98-107 lsyj=365) CO2 (BEAKER) (test 21 meq/L 22-29 over=159) BLOOD UREA NITROGEN 34 mg/dL 7-21 (BEAKER) (test thcy=847) CREATININE (BEAKER) (test 1.31 mg/dL 0.57-1.25 ywpo=182) GLUCOSE RANDOM (BEAKER) 249 mg/dL 70-105 (test urmf=836) CALCIUM (BEAKER) (test 8.7 mg/dL 8.4-10.2 onmr=426) EGFR (BEAKER) (test 54 mL/min/1.73 sq m ESTIMATED GFR IS NOT nsep=9604) ACCURATE CREATININE CLEARANCE IN PREDICTING GLOMERULAR FILTRATION RATE. ESTIMATED GFR IS NOT APPLICABLE FOR DIALYSIS PATIENTS. HEPATIC FUNCTION [id number] 03:38:00 Test Item Value Reference Range Comments TOTAL PROTEIN (BEAKER) (test cdop=247) 6.2 gm/dL 6.0-8.3 ALBUMIN (BEAKER) (test wruy=1101) 2.6 g/dL 3.5-5.0 BILIRUBIN TOTAL (BEAKER) (test qcwg=755) 1.8 mg/dL 0.2-1.2 BILIRUBIN DIRECT (BEAKER) (test ztkw=312) 0.9 mg/dL 0.1-0.5 ALKALINE PHOSPHATASE (BEAKER) (test qien=843) 98 U/L 40-150 AST (SGOT) (BEAKER) (test acsa=823) 37 U/L 5-34 ALT (SGPT) (BEAKER) (test orjs=689) 21 U/L 6-55 PROTHROMBIN [id number] 03:21:00 Test Item Value Reference Range Comments PROTIME (BEAKER) (test nrqe=244) 17.1 seconds 11.7-14.7 INR (BEAKER) (test bbfk=647) 1.4 <=5.9 RECOMMENDED COUMADIN/WARFARIN INR THERAPY RANGESSTANDARD DOSE: 2.0 - 3.0 Includes: PROPHYLAXIS forvenous thrombosis, systemic embolization; TREATMENT for venous thrombosis and/or pulmonary embolus.HIGH RISK: Target INR is 2.5-3.5 for patients with mechanical heart valves.CBC W/PLT COUNT & AUTO [id number] 03:03:00 Test Item Value Reference Range Comments WHITE BLOOD CELL COUNT (BEAKER) (test xpoo=564) 4.0 K/ L 3.5-10.5 RED BLOOD CELL COUNT (BEAKER) (test xnjd=856) 2.68 M/ L 4.63-6.08 HEMOGLOBIN (BEAKER) (test ajsk=105) 8.3 GM/DL 13.7-17.5 HEMATOCRIT (BEAKER) (test yfko=240) 27.1 % 40.1-51.0 MEAN CORPUSCULAR VOLUME (BEAKER) (test jabh=389) 101.1 fL 79.0-92.2 MEAN CORPUSCULAR HEMOGLOBIN (BEAKER) (test 31.0 pg 25.7-32.2 iwyi=675) MEAN CORPUSCULAR HEMOGLOBIN CONC (BEAKER) (test 30.6 GM/DL 32.3-36.5 mopn=178) RED CELL DISTRIBUTION WIDTH (BEAKER) (test 17.2 % 11.6-14.4 prsr=456) PLATELET COUNT (BEAKER) (test xgtw=490) 40 K/CU MM 150-450 MEAN PLATELET VOLUME (BEAKER) (test awad=984) 11.8 fL 9.4-12.4 NUCLEATED RED BLOOD CELLS (BEAKER) (test 0 /100 WBC 0-0 jvhz=529) NEUTROPHILS RELATIVE PERCENT (BEAKER) (test 72 % uhnd=659) LYMPHOCYTES RELATIVE PERCENT (BEAKER) (test 13 % keos=282) MONOCYTES RELATIVE PERCENT (BEAKER) (test 9 % yqps=679) EOSINOPHILS RELATIVE PERCENT (BEAKER) (test 6 % ynjo=406) BASOPHILS RELATIVE PERCENT (BEAKER) (test 1 % vcmo=449) NEUTROPHILS ABSOLUTE COUNT (BEAKER) (test 2.89 K/ L 1.78-5.38 psnn=354) LYMPHOCYTES ABSOLUTE COUNT (BEAKER) (test 0.50 K/ L 1.32-3.57 zzbe=284) MONOCYTES ABSOLUTE COUNT (BEAKER) (test mtjt=593) 0.35 K/ L 0.30-0.82 EOSINOPHILS ABSOLUTE COUNT (BEAKER) (test 0.24 K/ L 0.04-0.54 nzxs=224) BASOPHILS ABSOLUTE COUNT (BEAKER) (test odhf=958) 0.02 K/ L 0.01-0.08 IMMATURE GRANULOCYTES-RELATIVE PERCENT (BEAKER) 0 % 0-1 (test nkpy=9939) POCT-GLUCOSE [id number] 01:30:00 Test Item Value Reference Range Comments POC-GLUCOSE METER (BEAKER) 261 mg/dL 70-110 TESTED AT [facility] [address] [facility] (test ovrk=4787) [facility] [address] URINALYSIS W/ [id number] 22:14:00 Test Item Value Reference Range Comments COLOR (BEAKER) (test yxer=774) Light Yellow CLARITY (BEAKER) (test arpb=825) Clear SPECIFIC GRAVITY UA (BEAKER) (test bvtb=574) 1.005 1.001-1.035 PH UA (BEAKER) (test mthd=298) 5.0 5.0-8.0 PROTEIN UA (BEAKER) (test txvu=858) Negative Negative GLUCOSE UA (BEAKER) (test bomp=345) Negative Negative KETONES UA (BEAKER) (test wfhk=366) Negative Negative BILIRUBIN UA (BEAKER) (test jjkw=543) Negative Negative BLOOD UA (BEAKER) (test qkzi=801) Small Negative NITRITE UA (BEAKER) (test fzfh=885) Negative Negative LEUKOCYTE ESTERASE UA (BEAKER) (test kksy=215) Negative Negative UROBILINOGEN UA (BEAKER) (test derr=226) 0.2 mg/dL 0.2-1.0 RBC UA (BEAKER) (test obvc=828) 3 /HPF WBC UA (BEAKER) (test tkyo=301) < /HPF BACTERIA (BEAKER) (test mtzv=338) Rare MUCUS (BEAKER) (test hawl=0000) Rare HYALINE CASTS (BEAKER) (test gegb=213) 1 /LPF SOURCE(BEAKER) (test kvoj=6252) CT, BRAIN, WITHOUT [id number] 21:49:00Reason for exam:->EMESISReason for exam:->ALTERED MENTAL STATUSWhat is the patient's sedation requirement?-& gt;No SedationFINAL REPORT CT head without contrast. Comparisons: June 19, 2017 Reason for exam: EMESISALTERED MENTAL STATUSCONFUSION. Discussion: Multiple axial CT images of thehead are provided without contrast evaluated in brain and bone windows. Dose modulation, iterative reconstruction, and/or weight based adjustment of the mA/kV was utilized to reduce the radiation dose to as low as reasonably achievable. There is no CT evidence of intracranial hemorrhage, mass-effect,hydrocephalus, shift, or extra-axial collections. The visualized dural sinus regions, orbital contents, paranasal sinuses, bones and surrounding soft tissues are unremarkable. Impressions: 1. No specific evidence of acute intracranial abnormality. Signed: Rachid Wilks [facility] Verified Date/Time: 02/19/2018 21: 49:02 RAD, CHEST, 1 VIEW, NON [id number] 21:45:00Reason for exam:-> EMESISReason for exam:->ALTERED MENTAL STATUSShould this be performed [facility]?->YesFINAL REPORT INDICATION: EMESISALTERED MENTAL STATUS COMPARISON: 06/19/17 TECHNIQUE: Single frontal view of the chest. FINDINGS: Lungs and pleura: Clear lungs. No effusion.Heart and mediastinum: Normal heart size. Stable valvular surgical changes.Osseous structures: No acute abnormality.Other: None. IMPRESSION: No acute intrathoracic abnormality. Signed: JR Wong Robert [facility] Verified Date/Time: 02/19/2018 21:45:47 Reading Location: [facility] B1 C013Y CT Body Reading Room [id number] 21:16:00 Test Item Value Reference Range Comments PROTIME (BEAKER) (test hosp=038) 16.7 seconds 11.7-14.7 INR (BEAKER) (test zlnn=195) 1.4 <=5.9 PARTIAL THROMBOPLASTIN TIME (BEAKER) (test 34.2 seconds 22.5-36.0 xdvh=434) RECOMMENDED COUMADIN/WARFARIN INR THERAPY RANGESSTANDARD DOSE: 2.0 - 3.0 Includes: PROPHYLAXIS forvenous thrombosis, systemic embolization; TREATMENT for venous thrombosis and/or pulmonary embolus.HIGH RISK: Target INR is 2.5-3.5 for patients with mechanical heart valves.[id number] 21:16:00 Test Item Value Reference Range Comments AMMONIA (BEAKER) (test 32 mol/L 18-72 Specimen slightly hemolyzed cxqp=661) [id number] 21:08:00 Test Item Value Reference Range Comments LIPASE (BEAKER) (test brio=878) 180 U/L 8-78 [id number] 21:08:00 Test Item Value Reference Range Comments AMYLASE (BEAKER) (test avzo=354) 20 U/L 25-125 Specimen slightly hemolyzed BASIC METABOLIC [id number] 21:08:00 Test Item Value Reference Range Comments SODIUM (BEAKER) (test 135 meq/L 136-145 ffkk=984) POTASSIUM (BEAKER) (test 4.0 meq/L 3.5-5.1 Specimen slightly kehs=068) hemolyzed CHLORIDE (BEAKER) (test 103 meq/L 98-107 onyt=650) CO2 (BEAKER) (test 24 meq/L 22-29 zhyn=784) BLOOD UREA NITROGEN 36 mg/dL 7-21 (BEAKER) (test smvm=881) CREATININE (BEAKER) (test 1.41 mg/dL 0.57-1.25 Specimen slightly axje=534) hemolyzed GLUCOSE RANDOM (BEAKER) 253 mg/dL 70-105 (test ufen=347) CALCIUM (BEAKER) (test 9.0 mg/dL 8.4-10.2 wswg=091) EGFR (BEAKER) (test 50 mL/min/1.73 sq m ESTIMATED GFR IS NOT agzi=1050) ACCURATE CREATININE CLEARANCE IN PREDICTING GLOMERULAR FILTRATION RATE. ESTIMATED GFR IS NOT APPLICABLE FOR DIALYSIS PATIENTS. HEPATIC FUNCTION [id number] 21:08:00 Test Item Value Reference Range Comments TOTAL PROTEIN (BEAKER) (test 6.6 gm/dL 6.0-8.3 Specimen slightly hemolyzed abcb=485) ALBUMIN (BEAKER) (test 2.8 g/dL 3.5-5.0 Specimen slightly hemolyzed kctu=2023) BILIRUBIN TOTAL (BEAKER) (test 1.7 mg/dL 0.2-1.2 Specimen slightly hemolyzed mapy=428) BILIRUBIN DIRECT (BEAKER) (test 0.8 mg/dL 0.1-0.5 Specimen slightly hemolyzed yaio=982) ALKALINE PHOSPHATASE (BEAKER) 106 U/L 40-150 (test mfza=463) AST (SGOT) (BEAKER) (test 46 U/L 5-34 Specimen slightly hemolyzed hplh=823) ALT (SGPT) (BEAKER) (test 27 U/L 6-55 Specimen slightly hemolyzed okds=258) CBC W/PLT COUNT & AUTO [id number] 20:50:00 Test Item Value Reference Range Comments WHITE BLOOD CELL COUNT (BEAKER) (test rzez=021) 5.4 K/ L 3.5-10.5 RED BLOOD CELL COUNT (BEAKER) (test rkdt=659) 2.83 M/ L 4.63-6.08 HEMOGLOBIN (BEAKER) (test xttd=722) 8.8 GM/DL 13.7-17.5 HEMATOCRIT (BEAKER) (test dsir=392) 28.3 % 40.1-51.0 MEAN CORPUSCULAR VOLUME (BEAKER) (test kdbr=427) 100.0 fL 79.0-92.2 MEAN CORPUSCULAR HEMOGLOBIN (BEAKER) (test 31.1 pg 25.7-32.2 rvta=848) MEAN CORPUSCULAR HEMOGLOBIN CONC (BEAKER) (test 31.1 GM/DL 32.3-36.5 dcrz=512) RED CELL DISTRIBUTION WIDTH (BEAKER) (test 17.1 % 11.6-14.4 pzyj=251) PLATELET COUNT (BEAKER) (test atuj=705) 57 K/CU MM 150-450 MEAN PLATELET VOLUME (BEAKER) (test cnnj=882) 13.8 fL 9.4-12.4 NUCLEATED RED BLOOD CELLS (BEAKER) (test 0 /100 WBC 0-0 hikv=357) NEUTROPHILS RELATIVE PERCENT (BEAKER) (test 77 % opwm=359) LYMPHOCYTES RELATIVE PERCENT (BEAKER) (test 9 % urpo=312) MONOCYTES RELATIVE PERCENT (BEAKER) (test 9 % whon=986) EOSINOPHILS RELATIVE PERCENT (BEAKER) (test 5 % wyyy=084) BASOPHILS RELATIVE PERCENT (BEAKER) (test 0 % auyt=723) NEUTROPHILS ABSOLUTE COUNT (BEAKER) (test 4.16 K/ L 1.78-5.38 mylp=995) LYMPHOCYTES ABSOLUTE COUNT (BEAKER) (test 0.46 K/ L 1.32-3.57 iffw=877) MONOCYTES ABSOLUTE COUNT (BEAKER) (test bmwq=524) 0.48 K/ L 0.30-0.82 EOSINOPHILS ABSOLUTE COUNT (BEAKER) (test 0.29 K/ L 0.04-0.54 kcmd=795) BASOPHILS ABSOLUTE COUNT (BEAKER) (test bgrt=346) 0.01 K/ L 0.01-0.08 IMMATURE GRANULOCYTES-RELATIVE PERCENT (BEAKER) 0 % 0-1 (test gzmw=3168) U/S, ABDOMINAL, WITH [id number] 12:44:00With doppler With doppler Reason for Exam:->cirrhosis, on liver transplant waiting listFINAL REPORT Ultrasound of the Abdomen and Duplex Doppler. TECHNIQUE: Sonographic assessment of the abdomen was performed as well as a detailed duplex Doppler assessment of the liver including spectral wave forms and color- flow analysis of the major vascular structures. ClinicalHistory: cirrhosis, on liver transplant waiting list. Comparison study: Ultrasound dated July 09, 2017. CT scan dated August 24, 2016 Findings: The liver is coarse and nodular in echotexture and measures 13.8 cm in length. A 0.6 x 0.5 x 0.6 cm cyst is seen in the left lobe. There is no evidence of intra or extrahepatic biliary dilatation with the common bile duct measuring four mm. The main portal vein diameter is 1.3 cm. Cholelithiasis is seen with no sonographic evidence of acute cholecystitis. The spleen measures 19.1 cm, enlarged. The pancreas is poorly seen. No ascites is present. The right kidney measures 11.7 cm and left kidney measures 12.6 cm, both within normal limits. No pleural effusions are seen. The proximal aorta and IVC are unremarkable. Doppler interrogation of the liver demonstrates a main portal vein diameter measuring 1.3 cm. No flow is identified. Cavernous transformation is seen. The resistive indices in the proper, right and left hepatic arteries are 0.77, 0.69 and 0.74 respectively. Outflow with appropriate directionality is seen in the IVC, hepatic venous confluence as well as the right, middle and left hepatic veins. Impression: 1. Nodular, coarse liver consistent with the patient's known history of cirrhosis. A small left lobe cyst is seen.2. Splenomegaly.3. No flow noted within the portal venous system, as on previous. Cavernous transformation is noted. MRI or CT scan could be performed for further assessment.4. Cholelithiasis.5. Pancreas poorly seen. Signed: [facility] Verified Date/Time: 01/07/2018 12 :44:58 Reading Location: [address] Radiology Reading Room POCT- GLUCOSE [id number] 10:12:00 Test Item Value Reference Range Comments POC-GLUCOSE METER (BEAKER) 184 mg/dL 70-110 TESTED AT [facility] [address] [facility] (test iqnz=0635) [facility] [address] ALPHA FETOPROTEIN (AFP), TUMOR [id number] 15:21:00 Test Item Value Reference Range Comments ALPHA-FETOPROTEIN (BEAKER) (test tjnd=7501) < ng/mL <10.0 COMPREHENSIVE METABOLIC [id number] 14:46:00 Test Item Value Reference Range Comments TOTAL PROTEIN (BEAKER) 7.2 gm/dL 6.0-8.3 (test jtrt=631) ALBUMIN (BEAKER) (test 3.2 g/dL 3.5-5.0 fnvj=4199) ALKALINE PHOSPHATASE 128 U/L 40-150 (BEAKER) (test wsbp=929) BILIRUBIN TOTAL (BEAKER) 1.5 mg/dL 0.2-1.2 (test pwbu=335) SODIUM (BEAKER) (test 135 meq/L 136-145 moeo=762) POTASSIUM (BEAKER) (test 4.1 meq/L 3.5-5.1 yoyg=256) CHLORIDE (BEAKER) (test 103 meq/L 98-107 znnz=786) CO2 (BEAKER) (test 24 meq/L 22-29 vzgm=089) BLOOD UREA NITROGEN 55 mg/dL 7-21 (BEAKER) (test twux=493) CREATININE (BEAKER) (test 1.45 mg/dL 0.57-1.25 gusr=966) GLUCOSE RANDOM (BEAKER) 148 mg/dL 70-105 (test pbcm=653) CALCIUM (BEAKER) (test 8.9 mg/dL 8.4-10.2 etig=199) AST (SGOT) (BEAKER) (test 46 U/L 5-34 oidn=477) ALT (SGPT) (BEAKER) (test 26 U/L 6-55 apyt=781) EGFR (BEAKER) (test 48 mL/min/1.73 sq m ESTIMATED GFR IS NOT ortp=2805) ACCURATE CREATININE CLEARANCE IN PREDICTING GLOMERULAR FILTRATION RATE. ESTIMATED GFR IS NOT APPLICABLE FOR DIALYSIS PATIENTS. BILIRUBIN, [id number] 14:46:00 Test Item Value Reference Range Comments BILIRUBIN DIRECT (BEAKER) (test yznv=294) 0.8 mg/dL 0.1-0.5 CBC W/PLT COUNT & AUTO [id number] 14:35:00 Test Item Value Reference Range Comments WHITE BLOOD CELL COUNT (BEAKER) (test ikmn=872) 5.8 K/ L 3.5-10.5 RED BLOOD CELL COUNT (BEAKER) (test uwtc=212) 2.95 M/ L 4.63-6.08 HEMOGLOBIN (BEAKER) (test fgvz=899) 9.3 GM/DL 13.7-17.5 HEMATOCRIT (BEAKER) (test nthq=652) 28.9 % 40.1-51.0 MEAN CORPUSCULAR VOLUME (BEAKER) (test ktey=997) 98.0 fL 79.0-92.2 MEAN CORPUSCULAR HEMOGLOBIN (BEAKER) (test 31.5 pg 25.7-32.2 mqax=696) MEAN CORPUSCULAR HEMOGLOBIN CONC (BEAKER) (test 32.2 GM/DL 32.3-36.5 jlxz=109) RED CELL DISTRIBUTION WIDTH (BEAKER) (test 14.5 % 11.6-14.4 qolq=585) PLATELET COUNT (BEAKER) (test ymlq=140) 51 K/CU MM 150-450 MEAN PLATELET VOLUME (BEAKER) (test oirt=813) 12.8 fL 9.4-12.4 NUCLEATED RED BLOOD CELLS (BEAKER) (test 0 /100 WBC 0-0 gurx=866) NEUTROPHILS RELATIVE PERCENT (BEAKER) (test 72 % snku=958) LYMPHOCYTES RELATIVE PERCENT (BEAKER) (test 9 % gogf=411) MONOCYTES RELATIVE PERCENT (BEAKER) (test 10 % nvyp=267) EOSINOPHILS RELATIVE PERCENT (BEAKER) (test 8 % tzbh=681) BASOPHILS RELATIVE PERCENT (BEAKER) (test 0 % gplk=011) NEUTROPHILS ABSOLUTE COUNT (BEAKER) (test 4.22 K/ L 1.78-5.38 zcvs=369) LYMPHOCYTES ABSOLUTE COUNT (BEAKER) (test 0.54 K/ L 1.32-3.57 ujkg=968) MONOCYTES ABSOLUTE COUNT (BEAKER) (test uenw=072) 0.59 K/ L 0.30-0.82 EOSINOPHILS ABSOLUTE COUNT (BEAKER) (test 0.45 K/ L 0.04-0.54 bwls=838) BASOPHILS ABSOLUTE COUNT (BEAKER) (test jhpb=809) 0.02 K/ L 0.01-0.08 IMMATURE GRANULOCYTES-RELATIVE PERCENT (BEAKER) 0 % 0-1 (test tkad=3411) PROTHROMBIN [id number] 14:27:00 Test Item Value Reference Range Comments PROTIME (BEAKER) (test vxgs=153) 16.9 seconds 11.7-14.7 INR (BEAKER) (test gteu=007) 1.4 <=5.9 RECOMMENDED COUMADIN/WARFARIN INR THERAPY RANGESSTANDARD DOSE: 2.0 - 3.0 Includes: PROPHYLAXIS forvenous thrombosis, systemic embolization; TREATMENT for venous thrombosis and/or pulmonary embolus.HIGH RISK: Target INR is 2.5-3.5 for patients with mechanical heart valves.U/S, ABDOMINAL, WITH [id number] 17:20:00With doppler With dopplnicolette Reason for Exam:->cirrhosis, on liver transplant waiting list with dopplerFINAL REPORT HISTORY : Cirrhosis, on liver transplant waiting list COMPARISON: 12/31/2016 COMMENT : Complete ultrasound examination of the abdomen with color Doppler and spectral evaluation of the abdominal vasculature was performed. The liver measures 16.2 cm in length and has a coarsened echotexture. No focal hepatic masses are identified. The gallbladder contains shadowinggallstones. There is no gallbladder wall thickening or pericholecystic fluid. The biliary tract is within normal limits with the common bile duct measuring 4 mm in maximum diameter. The pancreas is obscured by bowel gas. The spleen is enlarged measuring 18.7 cm in length. The right kidney measures 11.2 cm and the left kidney 12.6 cm in maximum size. There is no evidence of cysts, masses, stones or hydronephrosis. There is no ascites or pleural effusion. The abdominal aorta measures to a maximum of2.7 cm. There is thrombus in the main portal vein and no flow is visualized on color Doppler imaging. The right and left portal veins are not seen. Cavernous transformation of the juan hepatis. The resistive index of the proper hepatic artery is 0.83 with an acceleration time of 0.04 sec. The resistive index of the right hepatic artery is 0.7 and of the left hepatic artery is 0.77. The visualized IVC, hepatic, and splenic veins are patent with appropriate directional flow. IMPRESSION : 1. Cirrhosis without focal hepatic mass.2. 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 Cholelithiasis. Signed: Ralph Jaffe MDRemily Verified Date/Time: 07/09/2017 17:20:26 Reading Location: [address] Radiology Reading Room COMPREHENSIVE METABOLIC [id number] 11: 35:00 Test Item Value Reference Range Comments TOTAL PROTEIN (BEAKER) 6.9 gm/dL 6.0-8.3 (test qsoo=639) ALBUMIN (BEAKER) (test 3.0 g/dL 3.5-5.0 nmdc=1514) ALKALINE PHOSPHATASE 147 U/L 40-150 (BEAKER) (test tyck=788) BILIRUBIN TOTAL (BEAKER) 1.4 mg/dL 0.2-1.2 (test bhob=443) SODIUM (BEAKER) (test 136 meq/L 136-145 tcig=005) POTASSIUM (BEAKER) (test 4.1 meq/L 3.5-5.1 umti=204) CHLORIDE (BEAKER) (test 106 meq/L 98-107 vdve=920) CO2 (BEAKER) (test 20 meq/L 22-29 dclj=174) BLOOD UREA NITROGEN 37 mg/dL 7-21 (BEAKER) (test kvap=794) CREATININE (BEAKER) (test 1.80 mg/dL 0.57-1.25 vevq=557) GLUCOSE RANDOM (BEAKER) 215 mg/dL 70-105 (test ures=434) CALCIUM (BEAKER) (test 8.4 mg/dL 8.4-10.2 igpa=079) AST (SGOT) (BEAKER) (test 38 U/L 5-34 roek=873) ALT (SGPT) (BEAKER) (test 23 U/L 6-55 xiqx=012) EGFR (BEAKER) (test 38 mL/min/1.73 sq m ESTIMATED GFR IS NOT euxa=8651) ACCURATE CREATININE CLEARANCE IN PREDICTING GLOMERULAR FILTRATION RATE. ESTIMATED GFR IS NOT APPLICABLE FOR DIALYSIS PATIENTS. BILIRUBIN, [id number] 11:35:00 Test Item Value Reference Range Comments BILIRUBIN DIRECT (BEAKER) (test lnpn=937) 0.7 mg/dL 0.1-0.5 PROTHROMBIN [id number] 11:16:00 Test Item Value Reference Range Comments PROTIME (BEAKER) (test uqpj=815) 16.8 seconds 11.7-14.7 INR (BEAKER) (test yizt=944) 1.4 <=5.9 RECOMMENDED COUMADIN/WARFARIN INR THERAPY RANGESSTANDARD DOSE: 2.0 - 3.0 Includes: PROPHYLAXIS forvenous thrombosis, systemic embolization; TREATMENT for venous thrombosis and/or pulmonary embolus.HIGH RISK: Target INR is 2.5-3.5 for patients with mechanical heart valves.CBC W/PLT COUNT & AUTO [id number] 11:09:00 Test Item Value Reference Range Comments WHITE BLOOD CELL COUNT (BEAKER) (test pnvv=157) 5.4 K/ L 3.5-10.5 RED BLOOD CELL COUNT (BEAKER) (test jcxx=356) 2.88 M/ L 4.63-6.08 HEMOGLOBIN (BEAKER) (test dmfx=332) 9.3 GM/DL 13.7-17.5 HEMATOCRIT (BEAKER) (test avxx=083) 28.6 % 40.1-51.0 MEAN CORPUSCULAR VOLUME (BEAKER) (test nejk=956) 99.3 fL 79.0-92.2 MEAN CORPUSCULAR HEMOGLOBIN (BEAKER) (test 32.3 pg 25.7-32.2 gsng=670) MEAN CORPUSCULAR HEMOGLOBIN CONC (BEAKER) (test 32.5 GM/DL 32.3-36.5 afmf=757) RED CELL DISTRIBUTION WIDTH (BEAKER) (test 14.6 % 11.6-14.4 fxew=661) PLATELET COUNT (BEAKER) (test fotf=612) 48 K/CU MM 150-450 MEAN PLATELET VOLUME (BEAKER) (test mbmi=411) 11.2 fL 9.4-12.4 NUCLEATED RED BLOOD CELLS (BEAKER) (test 0 /100 WBC 0-0 jrge=898) NEUTROPHILS RELATIVE PERCENT (BEAKER) (test 75 % vrtj=579) LYMPHOCYTES RELATIVE PERCENT (BEAKER) (test 11 % txgi=700) MONOCYTES RELATIVE PERCENT (BEAKER) (test 9 % nmgd=275) EOSINOPHILS RELATIVE PERCENT (BEAKER) (test 5 % tlea=794) BASOPHILS RELATIVE PERCENT (BEAKER) (test 0 % bwwn=944) NEUTROPHILS ABSOLUTE COUNT (BEAKER) (test 4.07 K/ L 1.78-5.38 kego=159) LYMPHOCYTES ABSOLUTE COUNT (BEAKER) (test 0.58 K/ L 1.32-3.57 qdpj=433) MONOCYTES ABSOLUTE COUNT (BEAKER) (test hesf=591) 0.46 K/ L 0.30-0.82 EOSINOPHILS ABSOLUTE COUNT (BEAKER) (test 0.28 K/ L 0.04-0.54 stun=551) BASOPHILS ABSOLUTE COUNT (BEAKER) (test zlmo=895) 0.01 K/ L 0.01-0.08 IMMATURE GRANULOCYTES-RELATIVE PERCENT (BEAKER) 0 % 0-1 (test iohq=8139) BLOOD [id number] 05:01:00 Test Item Value Reference Range Comments CULTURE (BEAKER) (test wmly=1090) No growth in 5 days BLOOD [id number] 05:01:00 Test Item Value Reference Range Comments CULTURE (BEAKER) (test hwth=9044) No growth in 5 days URINE [id number] 11:54:00 Test Item Value Reference Range Comments CULTURE (BEAKER) (test fczr=1706) No growth URINE [id number] 10:42:00 Test Item Value Reference Range Comments CULTURE (BEAKER) (test jxeu=5128) No growth POCT-GLUCOSE [id number] 12:09:00 Test Item Value Reference Range Comments POC-GLUCOSE METER (BEAKER) 269 mg/dL 70-110 TESTED AT [address] (test psfs=8913) [facility] [address] POCT-GLUCOSE [id number] 07:35:00 Test Item Value Reference Range Comments POC-GLUCOSE METER (BEAKER) 139 mg/dL 70-110 TESTED AT [address] (test lmva=0233) [facility] [address] CALCIUM, [id number] 07:24:00 Test Item Value Reference Range Comments CALCIUM IONIZED (BEAKER) (test zedp=721) 1.17 mmol/L 1.12-1.27 PH, BLOOD (BEAKER) (test irqk=2807) 7.36 CBC W/PLT COUNT & AUTO [id number] 06:41:00 Test Item Value Reference Range Comments WHITE BLOOD CELL COUNT (BEAKER) (test jjzc=375) 5.0 K/ L 3.5-10.5 RED BLOOD CELL COUNT (BEAKER) (test cbqw=477) 2.81 M/ L 4.63-6.08 HEMOGLOBIN (BEAKER) (test vbwp=741) 9.2 GM/DL 13.7-17.5 HEMATOCRIT (BEAKER) (test aupv=298) 27.7 % 40.1-51.0 MEAN CORPUSCULAR VOLUME (BEAKER) (test qwqf=227) 98.6 fL 79.0-92.2 MEAN CORPUSCULAR HEMOGLOBIN (BEAKER) (test 32.7 pg 25.7-32.2 waby=922) MEAN CORPUSCULAR HEMOGLOBIN CONC (BEAKER) (test 33.2 GM/DL 32.3-36.5 nejd=891) RED CELL DISTRIBUTION WIDTH (BEAKER) (test 14.0 % 11.6-14.4 tzzg=836) PLATELET COUNT (BEAKER) (test goyk=061) 41 K/CU MM 150-450 MEAN PLATELET VOLUME (BEAKER) (test tveh=891) 10.9 fL 9.4-12.4 NUCLEATED RED BLOOD CELLS (BEAKER) (test 0 /100 WBC 0-0 ezuy=870) NEUTROPHILS RELATIVE PERCENT (BEAKER) (test 70 % xrne=886) LYMPHOCYTES RELATIVE PERCENT (BEAKER) (test 11 % fuqk=001) MONOCYTES RELATIVE PERCENT (BEAKER) (test 11 % ugja=540) EOSINOPHILS RELATIVE PERCENT (BEAKER) (test 7 % bdxd=536) BASOPHILS RELATIVE PERCENT (BEAKER) (test 0 % ilaa=019) NEUTROPHILS ABSOLUTE COUNT (BEAKER) (test 3.48 K/ L 1.78-5.38 fvzw=217) LYMPHOCYTES ABSOLUTE COUNT (BEAKER) (test 0.54 K/ L 1.32-3.57 ujuy=141) MONOCYTES ABSOLUTE COUNT (BEAKER) (test rgzo=115) 0.57 K/ L 0.30-0.82 EOSINOPHILS ABSOLUTE COUNT (BEAKER) (test 0.36 K/ L 0.04-0.54 salj=781) BASOPHILS ABSOLUTE COUNT (BEAKER) (test nlze=719) 0.02 K/ L 0.01-0.08 IMMATURE GRANULOCYTES-RELATIVE PERCENT (BEAKER) 0 % 0-1 (test hzde=4789) [id number] 06:38:00 Test Item Value Reference Range Comments PHOSPHORUS (BEAKER) (test uvfj=212) 3.4 mg/dL 2.3-4.7 [id number] 06:38:00 Test Item Value Reference Range Comments MAGNESIUM (BEAKER) (test lbyx=509) 1.8 mg/dL 1.6-2.6 HEPATIC FUNCTION [id number] 06:38:00 Test Item Value Reference Range Comments TOTAL PROTEIN (BEAKER) (test ugyp=021) 6.7 gm/dL 6.0-8.3 ALBUMIN (BEAKER) (test ukqb=2121) 3.1 g/dL 3.5-5.0 BILIRUBIN TOTAL (BEAKER) (test vctg=551) 1.7 mg/dL 0.2-1.2 BILIRUBIN DIRECT (BEAKER) (test wbqm=819) 0.8 mg/dL 0.1-0.5 ALKALINE PHOSPHATASE (BEAKER) (test upej=077) 108 U/L 40-150 AST (SGOT) (BEAKER) (test luuq=064) 35 U/L 5-34 ALT (SGPT) (BEAKER) (test jxoa=289) 24 U/L 6-55 COMPREHENSIVE METABOLIC [id number] 06:38:00 Test Item Value Reference Range Comments TOTAL PROTEIN (BEAKER) 6.7 gm/dL 6.0-8.3 (test bgcb=467) ALBUMIN (BEAKER) (test 3.1 g/dL 3.5-5.0 zmqq=2957) ALKALINE PHOSPHATASE 108 U/L 40-150 (BEAKER) (test wzny=245) BILIRUBIN TOTAL (BEAKER) 1.7 mg/dL 0.2-1.2 (test qzed=995) SODIUM (BEAKER) (test 135 meq/L 136-145 kptl=076) POTASSIUM (BEAKER) (test 4.2 meq/L 3.5-5.1 fxkc=322) CHLORIDE (BEAKER) (test 105 meq/L 98-107 mtqc=749) CO2 (BEAKER) (test 25 meq/L 22-29 djvz=496) BLOOD UREA NITROGEN 38 mg/dL 7-21 (BEAKER) (test pewi=852) CREATININE (BEAKER) (test 1.27 mg/dL 0.57-1.25 jivr=154) GLUCOSE RANDOM (BEAKER) 132 mg/dL 70-105 (test tucv=392) CALCIUM (BEAKER) (test 9.0 mg/dL 8.4-10.2 xbiw=865) AST (SGOT) (BEAKER) (test 35 U/L 5-34 jzgg=455) ALT (SGPT) (BEAKER) (test 24 U/L 6-55 pwth=254) EGFR (BEAKER) (test 56 mL/min/1.73 sq m ESTIMATED GFR IS NOT ahnk=0472) ACCURATE CREATININE CLEARANCE IN PREDICTING GLOMERULAR FILTRATION RATE. ESTIMATED GFR IS NOT APPLICABLE FOR DIALYSIS PATIENTS. [id number] 06:27:00 Test Item Value Reference Range Comments PROTIME (BEAKER) (test hxcy=543) 16.9 seconds 11.7-14.7 INR (BEAKER) (test skul=847) 1.4 <=5.9 PARTIAL THROMBOPLASTIN TIME (BEAKER) (test 36.9 seconds 22.5-36.0 ywdt=344) RECOMMENDED COUMADIN/WARFARIN INR THERAPY RANGESSTANDARD DOSE: 2.0 - 3.0 Includes: PROPHYLAXIS forvenous thrombosis, systemic embolization; TREATMENT for venous thrombosis and/or pulmonary embolus.HIGH RISK: Target INR is 2.5-3.5 for patients with mechanical heart valves.PROTHROMBIN [id number] 06:26: 00 Test Item Value Reference Range Comments PROTIME (BEAKER) (test ehul=912) 16.9 seconds 11.7-14.7 INR (BEAKER) (test ilkd=800) 1.4 <=5.9 RECOMMENDED COUMADIN/WARFARIN INR THERAPY RANGESSTANDARD DOSE: 2.0 - 3.0 Includes: PROPHYLAXIS forvenous thrombosis, systemic embolization; TREATMENT for venous thrombosis and/or pulmonary embolus.HIGH RISK: Target INR is 2.5-3.5 for patients with mechanical heart valves.POCT-GLUCOSE [id number] 21:26:00 Test Item Value Reference Range Comments POC-GLUCOSE METER (BEAKER) 289 mg/dL 70-110 TESTED AT [address] (test drah=4835) [facility] [id number] POCT-GLUCOSE [id number] 17:50:00 Test Item Value Reference Range Comments POC-GLUCOSE METER (BEAKER) 197 mg/dL 70-110 TESTED AT [address] (test pzau=3501) [facility] [address] POCT-GLUCOSE [id number] 12:49:00 Test Item Value Reference Range Comments POC-GLUCOSE METER (BEAKER) 356 mg/dL 70-110 Notified DIMA SIFUENTES/TESTED AT [facility] (test mhaj=2287) [address] [place] [id number] [id number] 12:38:00 Test Item Value Reference Range Comments PREALBUMIN (BEAKER) (test nslt=740) 11 mg/dL 14-45 Listed for OLT - nutrition surveillance ([facility] Hepatology)HEMOGLOBIN [id number] 09:57:00 Test Item Value Reference Range Comments HEMOGLOBIN A1C (BEAKER) (test kwzz=376) 7.8 % 4.3-6.1 POCT-GLUCOSE [id number] 08:25:00 Test Item Value Reference Range Comments POC-GLUCOSE METER (BEAKER) 120 mg/dL 70-110 TESTED AT [facility] [address] [facility] (test oenw=3717) [facility] [address] [id number] 07:53:00 Test Item Value Reference Range Comments PHOSPHORUS (BEAKER) (test zmzj=173) 3.1 mg/dL 2.3-4.7 [id number] 07:53:00 Test Item Value Reference Range Comments MAGNESIUM (BEAKER) (test chyc=308) 1.7 mg/dL 1.6-2.6 BASIC METABOLIC [id number] 07:53:00 Test Item Value Reference Range Comments SODIUM (BEAKER) (test 136 meq/L 136-145 cztp=807) POTASSIUM (BEAKER) (test 4.3 meq/L 3.5-5.1 nflu=470) CHLORIDE (BEAKER) (test 103 meq/L 98-107 nqgp=957) CO2 (BEAKER) (test 25 meq/L 22-29 kqax=552) BLOOD UREA NITROGEN 38 mg/dL 7-21 (BEAKER) (test lwbw=336) CREATININE (BEAKER) (test 1.33 mg/dL 0.57-1.25 xwxu=651) GLUCOSE RANDOM (BEAKER) 120 mg/dL 70-105 (test umbe=446) CALCIUM (BEAKER) (test 9.3 mg/dL 8.4-10.2 mjwz=357) EGFR (BEAKER) (test 53 mL/min/1.73 sq m ESTIMATED GFR IS NOT thej=2123) ACCURATE CREATININE CLEARANCE IN PREDICTING GLOMERULAR FILTRATION RATE. ESTIMATED GFR IS NOT APPLICABLE FOR DIALYSIS PATIENTS. Specimen slightly ictericHEPATIC FUNCTION [id number] 07:53:00 Test Item Value Reference Range Comments TOTAL PROTEIN (BEAKER) (test uexr=059) 7.0 gm/dL 6.0-8.3 ALBUMIN (BEAKER) (test oonk=9113) 2.9 g/dL 3.5-5.0 BILIRUBIN TOTAL (BEAKER) (test oceb=807) 2.0 mg/dL 0.2-1.2 BILIRUBIN DIRECT (BEAKER) (test ojcu=779) 0.9 mg/dL 0.1-0.5 ALKALINE PHOSPHATASE (BEAKER) (test gwyw=117) 114 U/L 40-150 AST (SGOT) (BEAKER) (test uhqr=539) 42 U/L 5-34 ALT (SGPT) (BEAKER) (test hxyp=536) 28 U/L 6-55 Specimen slightly ictericPT/[id number] 07:46:00 Test Item Value Reference Range Comments PROTIME (BEAKER) (test qswj=981) 16.6 seconds 11.7-14.7 INR (BEAKER) (test iyre=084) 1.4 <=5.9 PARTIAL THROMBOPLASTIN TIME (BEAKER) (test 39.3 seconds 22.5-36.0 xejl=415) RECOMMENDED COUMADIN/WARFARIN INR THERAPY RANGESSTANDARD DOSE: 2.0 - 3.0 Includes: PROPHYLAXIS forvenous thrombosis, systemic embolization; TREATMENT for venous thrombosis and/or pulmonary embolus.HIGH RISK: Target INR is 2.5-3.5 for patients with mechanical heart valves.PROTHROMBIN TIME/[id number] 07:45: 00 Test Item Value Reference Range Comments PROTIME (BEAKER) (test goqw=819) 16.6 seconds 11.7-14.7 INR (BEAKER) (test ggjr=862) 1.4 <=5.9 RECOMMENDED COUMADIN/WARFARIN INR THERAPY RANGESSTANDARD DOSE: 2.0 - 3.0 Includes: PROPHYLAXIS forvenous thrombosis, systemic embolization; TREATMENT for venous thrombosis and/or pulmonary embolus.HIGH RISK: Target INR is 2.5-3.5 for patients with mechanical heart valves.CALCIUM, [id number] 07:42:00 Test Item Value Reference Range Comments CALCIUM IONIZED (BEAKER) (test ryfi=003) 1.18 mmol/L 1.12-1.27 PH, BLOOD (BEAKER) (test knkh=5766) 7.42 CBC W/PLT COUNT & AUTO [id number] 07:37:00 Test Item Value Reference Range Comments WHITE BLOOD CELL COUNT (BEAKER) (test dkwz=423) 6.3 K/ L 3.5-10.5 RED BLOOD CELL COUNT (BEAKER) (test bpjb=145) 3.06 M/ L 4.63-6.08 HEMOGLOBIN (BEAKER) (test iuce=793) 9.8 GM/DL 13.7-17.5 HEMATOCRIT (BEAKER) (test aabm=842) 30.0 % 40.1-51.0 MEAN CORPUSCULAR VOLUME (BEAKER) (test tixc=993) 98.0 fL 79.0-92.2 MEAN CORPUSCULAR HEMOGLOBIN (BEAKER) (test 32.0 pg 25.7-32.2 rbxl=706) MEAN CORPUSCULAR HEMOGLOBIN CONC (BEAKER) (test 32.7 GM/DL 32.3-36.5 jrwy=678) RED CELL DISTRIBUTION WIDTH (BEAKER) (test 14.2 % 11.6-14.4 amdr=363) PLATELET COUNT (BEAKER) (test diow=859) 49 K/CU MM 150-450 MEAN PLATELET VOLUME (BEAKER) (test zbxs=551) 10.6 fL 9.4-12.4 NUCLEATED RED BLOOD CELLS (BEAKER) (test 0 /100 WBC 0-0 grsn=843) NEUTROPHILS RELATIVE PERCENT (BEAKER) (test 72 % wyaq=010) LYMPHOCYTES RELATIVE PERCENT (BEAKER) (test 11 % ldxu=868) MONOCYTES RELATIVE PERCENT (BEAKER) (test 11 % vwee=403) EOSINOPHILS RELATIVE PERCENT (BEAKER) (test 6 % awbm=329) BASOPHILS RELATIVE PERCENT (BEAKER) (test 1 % azaz=996) NEUTROPHILS ABSOLUTE COUNT (BEAKER) (test 4.47 K/ L 1.78-5.38 dsmj=030) LYMPHOCYTES ABSOLUTE COUNT (BEAKER) (test 0.67 K/ L 1.32-3.57 pjwz=795) MONOCYTES ABSOLUTE COUNT (BEAKER) (test wtjv=897) 0.66 K/ L 0.30-0.82 EOSINOPHILS ABSOLUTE COUNT (BEAKER) (test 0.40 K/ L 0.04-0.54 hffz=595) BASOPHILS ABSOLUTE COUNT (BEAKER) (test lzsd=927) 0.03 K/ L 0.01-0.08 IMMATURE GRANULOCYTES-RELATIVE PERCENT (BEAKER) 0 % 0-1 (test gdmx=5836) RAD, MANDIBLE, MIN 4 [id number] 22:46:00Reason for exam:->rule out infectionFINAL REPORT EXAMINATION: MANDIBLE SERIES, 5 VIEWS CLINICAL INDICATION: PAIN.EVALUATE FOR INFECTION IMPRESSION: Compared with mandibular series 03/10/2014 As before, the dorsal most left mandibular molar is associated with radiolucency along the posterior aspect of the roots. Nodefinite evidence of an acute odontogenic process. However recommend clinical correlation. Paranasalsinuses and tympanic cavities appear well pneumatized. The orbits are unremarkable. Signed: Augie Vilchiseport Verified Date/Time: 06/19/2017 22:46:13 Reading Location: [address] Reading Room U/S, ABDOMINAL, [id number] 18:18:00Reason for exam:->ALTERED MENTAL STATUSFINAL REPORT Limited abdomen ultrasound. Multiple transaxial and longitudinalimages were obtained through the patient's abdomen. Nuchal diagnosis ascites. There is no evidence of a drainable fluid collection. The patient's paracentesis was canceled. Signed: Ingrid MelgarortVerified Date/Time: 06/19/2017 18:18:55 Reading Location: [address] Ultrasound Reading Room POCT-GLUCOSE [id number] 16:09:00 Test Item Value Reference Range Comments POC-GLUCOSE METER (BEAKER) 206 mg/dL 70-110 TESTED AT [address] (test xqok=4808) [facility] [address] CT, BRAIN, WITHOUT [id number] 15:26:00Reason for exam:-> ConfusionFINAL REPORT CT head without contrast. Reason for exam: EncephalopathyConfusion Comparisons: No priors Discussion: Multiple axial CT images of the head are provided without contrast evaluated in brain and bone windows. This exam was performed according to our departmental dose optimization program which includes automated exposure control, adjustment of the mA and/or kV according to patient's size and/or use of iterative reconstructive technique. Brain volume is age appropriate. Mckay-white differentiation is maintained. There is a mild degree of white matter lucencies , most likely to reflect chronic microvascular ischemic change. There is no CT evidence of intracranial hemorrhage, mass-effect, hydrocephalus, shift, or extra -axial collections. The visualized orbital contents, bones and surrounding soft tissues are unremarkable. The visualized paranasal sinuses and mastoid air cells are unremarkable. Impressions: No CT evidence of acute intracranial process. Mild involutional and chronic microvascular ischemic changes. Signed: Jonnie Keith MDReport Verified Date/Time: 06/19/2017 15:26:22 Reading Location: [facility] Consult Reading Room HEPATIC FUNCTION [id number] 15:17:00 Test Item Value Reference Range Comments TOTAL PROTEIN (BEAKER) (test hiub=641) 7.1 gm/dL 6.0-8.3 ALBUMIN (BEAKER) (test kfyk=9507) 3.0 g/dL 3.5-5.0 BILIRUBIN TOTAL (BEAKER) (test nbbr=891) 1.8 mg/dL 0.2-1.2 BILIRUBIN DIRECT (BEAKER) (test njto=743) 0.9 mg/dL 0.1-0.5 ALKALINE PHOSPHATASE (BEAKER) (test gsnz=648) 139 U/L 40-150 AST (SGOT) (BEAKER) (test qkni=205) 46 U/L 5-34 ALT (SGPT) (BEAKER) (test qgtd=368) 34 U/L 6-55 Order for age greater than 18 with no history of head injury or liver disease patients of any ageOrder for age greater than 18 with no history of head injury or liver disease patients of any agePOCT-GLUCOSE [id number] 15:12:00 Test Item Value Reference Range Comments POC-GLUCOSE METER (BEAKER) 446 mg/dL 70-110 TESTED AT [address] (test htvu=1460) [facility] [address] POCT-GLUCOSE [id number] 15:12:00 Test Item Value Reference Range Comments POC-GLUCOSE METER (BEAKER) 497 mg/dL 70-110 TESTED AT [address] (test apga=4654) [facility] [address] BLOOD GAS, [id number] 14:59:00 Test Item Value Reference Range Comments PH VENOUS (BEAKER) (test lhkc=585) 7.37 7.32-7.42 PCO2 VENOUS (BEAKER) (test yqfo=469) 50 mm Hg 41-51 PO2 VENOUS (BEAKER) (test zwky=957) 31 mm Hg 25-40 O2 SATURATION VENOUS (BEAKER) (test dllo=993) 56.7 % 40.0-70.0 HCO3 VENOUS (BEAKER) (test xigq=602) 28 mmol/L 21-29 BASE EXCESS VENOUS (BEAKER) (test asgi=840) 2.1 mmol/L -2.0-3.0 PATIENT TEMPERATURE (BEAKER) (test ourm=8583) 37.0 FIO2 (BEAKER) (test uyuu=8099) 21 URINALYSIS W/ [id number] 14:41:00 Test Item Value Reference Range Comments COLOR (BEAKER) (test dhjs=370) Light Yellow CLARITY (BEAKER) (test gmet=176) Clear SPECIFIC GRAVITY UA (BEAKER) (test mkoa=029) 1.004 1.001-1.035 PH UA (BEAKER) (test gagi=812) 5.0 5.0-8.0 PROTEIN UA (BEAKER) (test pzts=023) Negative Negative GLUCOSE UA (BEAKER) (test bvze=158) 500 mg/dL Negative KETONES UA (BEAKER) (test alpf=146) Negative Negative BILIRUBIN UA (BEAKER) (test apjw=569) Negative Negative BLOOD UA (BEAKER) (test wcxv=589) Negative Negative NITRITE UA (BEAKER) (test imgy=788) Negative Negative LEUKOCYTE ESTERASE UA (BEAKER) (test bbcn=254) Negative Negative UROBILINOGEN UA (BEAKER) (test jhkj=690) 0.2 mg/dL 0.2-1.0 RBC UA (BEAKER) (test vile=296) 0 /HPF WBC UA (BEAKER) (test jozg=315) 3 /HPF SOURCE(BEAKER) (test opgy=7651) RAD, CHEST, 1 VIEW, NON [id number] 14:15:00Reason for exam:->ALTERED MENTAL STATUSShould this be performed at the bedside?->YesFINAL REPORT Chest, AP view. History: Altered mental status. Comparison: None available. Discussion: The cardiomediastinal silhouette and pulmonary vasculature are within normal limits. An aortic valve prosthesis is present. The lungs are clear without evidence of consolidation or effusion. There are no acute osseous abnormalities. The soft tissues are unremarkable. IMPRESSION: No acute cardiopulmonary abnormality. Signed: Andie Pinon MDReport Verified Date/Time: 06/19/2017 14:15:26 Reading Location: [facility] Reading Room Electronically signed by: ANDIE PINON M.D. on 2016 02:15 [facility] [id number] 14:02:00 Test Item Value Reference Range Comments SODIUM (BEAKER) (test 131 meq/L 136-145 sazs=903) POTASSIUM (BEAKER) (test 4.5 meq/L 3.5-5.1 mgkt=873) CHLORIDE (BEAKER) (test 99 meq/L 98-107 ilef=450) CO2 (BEAKER) (test 26 meq/L 22-29 lhky=956) BLOOD UREA NITROGEN 40 mg/dL 7-21 (BEAKER) (test kejt=154) CREATININE (BEAKER) (test 1.73 mg/dL 0.57-1.25 tley=053) GLUCOSE RANDOM (BEAKER) 468 mg/dL 70-105 (test glhm=609) CALCIUM (BEAKER) (test 9.7 mg/dL 8.4-10.2 cupk=176) EGFR (BEAKER) (test 39 mL/min/1.73 sq m ESTIMATED GFR IS NOT plou=1963) ACCURATE CREATININE CLEARANCE IN PREDICTING GLOMERULAR FILTRATION RATE. ESTIMATED GFR IS NOT APPLICABLE FOR DIALYSIS PATIENTS. Order for age greater than 18 with no history of head injury or liver disease patients of any ageOrder for age greater than 18 with no history of head injury or liver disease patients of any ageRAPID DRUG SCREEN, [id number] 13:57:00 Test Item Value Reference Range Comments BARBITURATE URINE (BEAKER) (test iwye=418) Negative Negative BENZODIAZEPINE SCREEN URINE (BEAKER) (test Negative Negative dykz=201) COCAINE (METAB.) SCREEN (BEAKER) (test xiqp=1628) Negative Negative METHADONE SCREEN (BEAKER) (test yjpl=0480) Negative Negative OPIATE SCREEN URINE (BEAKER) (test bllg=123) Negative Negative CANNABINOID SCREEN URINE (BEAKER) (test uzow=720) Negative Negative AMPH/METHAMPH SCREEN (BEAKER) (test task=2842) Negative Negative PHENCYCLIDINE SCREEN URINE (BEAKER) (test snmx=596) Negative Negative OXYCODONE SCREEN URINE (BEAKER) (test xvgb=4204) Negative Negative DRUG CUTOFF CONC.Cocaine 300 ng/mL Cannabinoid 50 ng/mL Benzodiazepine 200 ng/mLBarbiturate 200 ng/ mLPhencyclidine 25 ng/mLOpiate 300 ng/mLMethadone 300 ng/mLAmphetamine/ 1000 ng/mL MethamphetamineOxycodone 300 ng/mLThis assay provides an unconfirmed qualitative test result for the clinical management of patients in emergency situations. Chain of custody not maintained. Some ytzv-mnt-lsruzls medications, as well as adulterants, may cause inaccurate results. Clinical correlation should be applied. A more comprehensive drug screen or confirmation of a detected drug may be performed upon request.CREATINE KINASE (CK), TOTAL AND [id number] 13:48:00 Test Item Value Reference Range Comments CREATINE KINASE TOTAL (BEAKER) (test lmjp=108) 184 U/L 29-200 CREATINE KINASE-MB (BEAKER) (test nkbx=405) 4.4 ng/mL 0.0-6.6 CREATINE KINASE-MB INDEX (BEAKER) (test ksvi=489) 2.4 % CK-MB Reference Range:<6.7 Normal6.7-10.0 Borderline>10.0 AbnormalOrder for age greater than 18 with no history of head injury or liver disease patients of any ageOrder for age greater than 18 with no history of head injury or liver disease patients of any ageOrder for age greater than18 with no history of head injury or liver disease patients of any ageOrder for age greater than 18 with no history of head injury or liver disease patients of any ageTROPONIN [id number] 13:48:00 Test Item Value Reference Range Comments TROPONIN I (BEAKER) (test rpid=659) 0.01 ng/mL 0.00-0.03 Troponin I (TnI) levels must be interpreted in the context of the presenting symptoms and the clinical findings. Elevated TnI levels indicate myocardial damage, but are not specific for ischemic heart disease. Elevated TnI levels are seen in patients with other cardiac conditions (including myocarditis and congestive heart failure), and slight TnI elevations occur in patients with other conditions, including sepsis, renal failure, acidosis, acute neurological disease, and persistent tachyarrhythmia.Order for age greater than 18 with no history of head injury or liver disease patients of any ageOrder for age greater than 18 with no history of head injury or liver disease patients of any ageKETONE, [id number] 13:44:00 Test Item Value Reference Range Comments KETONES, BLOOD (BEAKER) (test aqbu=1013) 0.2 mmol/L <0.4 [id number] 13:42:00 Test Item Value Reference Range Comments PHOSPHORUS (BEAKER) (test tnft=777) 3.5 mg/dL 2.3-4.7 Order for age greater than 18 with no history of head injury or liver disease patients of any ageOrder for age greater than 18 with no history of head injury or liver disease patients of any [id number] 13:42:00 Test Item Value Reference Range Comments MAGNESIUM (BEAKER) (test owon=295) 1.7 mg/dL 1.6-2.6 Order for age greater than 18 with no history of head injury or liver disease patients of any ageOrder for age greater than 18 with no history of head injury or liver disease patients of any [id number] 13:34:00 Test Item Value Reference Range Comments AMMONIA (BEAKER) (test poiw=763) 27 mol/L 18-72 [id number] 13:18:00 Test Item Value Reference Range Comments PROTIME (BEAKER) (test ollf=502) 16.5 seconds 11.7-14.7 INR (BEAKER) (test psof=162) 1.3 <=5.9 PARTIAL THROMBOPLASTIN TIME (BEAKER) (test 34.2 seconds 22.5-36.0 ngvl=027) RECOMMENDED COUMADIN/WARFARIN INR THERAPY RANGESSTANDARD DOSE: 2.0 - 3.0 Includes: PROPHYLAXIS forvenous thrombosis, systemic embolization; TREATMENT for venous thrombosis and/or pulmonary embolus.HIGH RISK: Target INR is 2.5-3.5 for patients with mechanical heart valves.CBC W/PLT COUNT & AUTO [id number] 13:13:00 Test Item Value Reference Range Comments WHITE BLOOD CELL COUNT (BEAKER) (test bqyz=537) 5.9 K/ L 3.5-10.5 RED BLOOD CELL COUNT (BEAKER) (test byst=953) 3.12 M/ L 4.63-6.08 HEMOGLOBIN (BEAKER) (test aafn=053) 10.2 GM/DL 13.7-17.5 HEMATOCRIT (BEAKER) (test udnt=793) 31.2 % 40.1-51.0 MEAN CORPUSCULAR VOLUME (BEAKER) (test tlxr=881) 100.0 fL 79.0-92.2 MEAN CORPUSCULAR HEMOGLOBIN (BEAKER) (test 32.7 pg 25.7-32.2 ixjv=945) MEAN CORPUSCULAR HEMOGLOBIN CONC (BEAKER) (test 32.7 GM/DL 32.3-36.5 hpxa=442) RED CELL DISTRIBUTION WIDTH (BEAKER) (test 14.3 % 11.6-14.4 wgqb=523) PLATELET COUNT (BEAKER) (test kmsn=585) 49 K/CU MM 150-450 MEAN PLATELET VOLUME (BEAKER) (test xxqn=622) 11.7 fL 9.4-12.4 NUCLEATED RED BLOOD CELLS (BEAKER) (test 0 /100 WBC 0-0 phas=355) NEUTROPHILS RELATIVE PERCENT (BEAKER) (test 76 % zpup=498) LYMPHOCYTES RELATIVE PERCENT (BEAKER) (test 10 % vbny=620) MONOCYTES RELATIVE PERCENT (BEAKER) (test 9 % nkdo=559) EOSINOPHILS RELATIVE PERCENT (BEAKER) (test 4 % ajel=312) BASOPHILS RELATIVE PERCENT (BEAKER) (test 0 % tqjq=436) NEUTROPHILS ABSOLUTE COUNT (BEAKER) (test 4.46 K/ L 1.78-5.38 lnch=606) LYMPHOCYTES ABSOLUTE COUNT (BEAKER) (test 0.57 K/ L 1.32-3.57 ljmd=820) MONOCYTES ABSOLUTE COUNT (BEAKER) (test nvvt=117) 0.55 K/ L 0.30-0.82 EOSINOPHILS ABSOLUTE COUNT (BEAKER) (test 0.26 K/ L 0.04-0.54 xkgu=841) BASOPHILS ABSOLUTE COUNT (BEAKER) (test eoya=846) 0.02 K/ L 0.01-0.08 IMMATURE GRANULOCYTES-RELATIVE PERCENT (BEAKER) 1 % 0-1 (test slmt=3357) RAD, BONE DENSITY [id number] 13:07:00Reason for Exam:->screening for osteoporosis. history of osteopenia. cirrhosis, on liver transplant listFINAL REPORT Bone mineral density study 06/04/2017. CLINICAL INDICATION: Screening for osteoporosis. History of osteopenia. Cirrhosis, on liver transplant list. COMPARISON: 03/10/2014 FINDINGS: Evaluation of the left and right femoral necks and lumbar spine was performed utilizing a Qoiza bone densitometer. Data reflect young adult matched T-scores and age-matched Z scores. IMPRESSION: The left femoral neck bone mineral density is 0.824gm/cm2, the T-scoreis -1.9, and the Z-score is -1.2. This is suggestive of osteopenia. The right femoral neck total bone mineral density is 0.823gm/cm2, the T-score is -1.9, and the Z-score is -1.2. This is suggestive ofosteopenia. The lumbar spine total bone mineral density is 1.169gm/cm2, the T- score is -0.4, and theZ-score is -0.6. Compared to the prior exam, the bone mineral density of the lumbar spine demonstrates a 11.8% decrease. The bone density of the left femoral neck demonstrates a 16.4% decrease. The bone mineral density of the right femoral neck demonstrates a 11.8% decrease. Signed : Lilliam Keller MDReport Verified Date/Time: 06/04/2017 13:07:47 Reading Location: [facility] Electronically signed by: LILLIAM KELLER on 01:07 PMRAD, CHEST, 2 [id number] 12:50:00Reason for Exam:-> cough x2-3weeksLocation->[facility] HospitalFINAL REPORT INDICATION: cough x2-3weeks COMPARISON: September 02, [id number] TECHNIQUE: Chest radiograph, two views, PA and lateral. Lateral view is suboptimal because the patient's arms were down at the time of the image. FINDINGS:There is no consolidation or other definite evidence of pneumonia. Prominent pulmonary vascular markings in the right lower lobe are similar to that demonstrated on August 21, 2016 at which time a chest CT demonstrated no lower lobe pneumonia. Transcatheter aortic valve replacement is noted. Heart shadow is not enlarged. There is no pneumothorax or pleural effusion. Osseous structures are unremarkable. IMPRESSION: No evidence of pneumonia. Signed: Nakul Blankenship MDReport Verified Date/Time: 04/30/2017 12:50:04 Reading Location: [address] Radiology Reading Room ALPHA FETOPROTEIN (AFP), TUMOR [id number] 16:38:00 Test Item Value Reference Range Comments ALPHA-FETOPROTEIN (BEAKER) (test byxk=3507) < ng/mL <10.0 Effective 06/01/2014: Reference Range ChangeNew: <10.0 Previous: 0.0- 8.0COMPREHENSIVE METABOLIC [id number] 15:51:00 Test Item Value Reference Range Comments TOTAL PROTEIN (BEAKER) 7.5 gm/dL 6.0-8.3 (test wbor=326) ALBUMIN (BEAKER) (test 3.1 g/dL 3.5-5.0 suvj=1728) ALKALINE PHOSPHATASE 125 U/L 40-150 (BEAKER) (test mhmm=983) BILIRUBIN TOTAL (BEAKER) 1.8 mg/dL 0.2-1.2 (test lxpm=177) SODIUM (BEAKER) (test 135 meq/L 136-145 pkyq=519) POTASSIUM (BEAKER) (test 3.9 meq/L 3.5-5.1 mznh=213) CHLORIDE (BEAKER) (test 100 meq/L 98-107 jcaf=295) CO2 (BEAKER) (test 26 meq/L 22-29 fuly=099) BLOOD UREA NITROGEN 49 mg/dL 7-21 (BEAKER) (test wlzh=831) CREATININE (BEAKER) (test 1.74 mg/dL 0.57-1.25 cekp=112) GLUCOSE RANDOM (BEAKER) 170 mg/dL 70-105 (test hnsc=044) CALCIUM (BEAKER) (test 9.0 mg/dL 8.4-10.2 nqiu=370) AST (SGOT) (BEAKER) (test 55 U/L 5-34 isue=308) ALT (SGPT) (BEAKER) (test 32 U/L 6-55 zanr=759) EGFR (BEAKER) (test 39 mL/min/1.73 sq m ESTIMATED GFR IS NOT oftp=5125) ACCURATE CREATININE CLEARANCE IN PREDICTING GLOMERULAR FILTRATION RATE. ESTIMATED GFR IS NOT APPLICABLE FOR DIALYSIS PATIENTS. BILIRUBIN, [id number] 15:51:00 Test Item Value Reference Range Comments BILIRUBIN DIRECT (BEAKER) (test gbrg=825) 1.0 mg/dL 0.1-0.5 PROTHROMBIN [id number] 15:37:00 Test Item Value Reference Range Comments PROTIME (BEAKER) (test ewcv=406) 16.7 seconds 11.7-14.7 INR (BEAKER) (test stsl=939) 1.4 <=5.9 RECOMMENDED COUMADIN/WARFARIN INR THERAPY RANGESSTANDARD DOSE: 2.0 - 3.0 Includes: PROPHYLAXIS forvenous thrombosis, systemic embolization; TREATMENT for venous thrombosis and/or pulmonary embolus.HIGH RISK: Target INR is 2.5-3.5 for patients with mechanical heart valves.CBC W/PLT COUNT & AUTO [id number] 15:33:00 Test Item Value Reference Range Comments WHITE BLOOD CELL COUNT 5.3 K/ L 3.5-10.5 (BEAKER) (test yvtv=083) RED BLOOD CELL COUNT (BEAKER) 2.62 M/ L 4.63-6.08 (test fqnm=355) HEMOGLOBIN (BEAKER) (test 8.8 GM/DL 13.7-17.5 lszz=485) HEMATOCRIT (BEAKER) (test 26.1 % 40.1-51.0 qoiy=975) MEAN CORPUSCULAR VOLUME 99.6 fL 79.0-92.2 (BEAKER) (test vgfr=832) MEAN CORPUSCULAR HEMOGLOBIN 33.6 pg 25.7-32.2 (BEAKER) (test wjjd=025) MEAN CORPUSCULAR HEMOGLOBIN 33.7 GM/DL 32.3-36.5 CONC (BEAKER) (test petr=990) RED CELL DISTRIBUTION WIDTH 16.8 % 11.6-14.4 (BEAKER) (test orrg=970) PLATELET COUNT (BEAKER) (test 37 K/CU MM 150-450 fnkc=832) MEAN PLATELET VOLUME (BEAKER) fL 9.4-12.4 Unable to report due to (test ebfu=428) abnormal Platelet population distribution. NUCLEATED RED BLOOD CELLS 0 /100 WBC 0-0 (BEAKER) (test yntd=791) NEUTROPHILS RELATIVE PERCENT 77 % (BEAKER) (test tnvg=034) LYMPHOCYTES RELATIVE PERCENT 7 % (BEAKER) (test hoem=830) MONOCYTES RELATIVE PERCENT 8 % (BEAKER) (test afbf=690) EOSINOPHILS RELATIVE PERCENT 7 % (BEAKER) (test affi=810) BASOPHILS RELATIVE PERCENT 0 % (BEAKER) (test xywv=051) NEUTROPHILS ABSOLUTE COUNT 4.07 K/ L 1.78-5.38 (BEAKER) (test tlle=060) LYMPHOCYTES ABSOLUTE COUNT 0.39 K/ L 1.32-3.57 (BEAKER) (test wffu=044) MONOCYTES ABSOLUTE COUNT 0.43 K/ L 0.30-0.82 (BEAKER) (test avzs=835) EOSINOPHILS ABSOLUTE COUNT 0.37 K/ L 0.04-0.54 (BEAKER) (test indi=760) BASOPHILS ABSOLUTE COUNT 0.01 K/ L 0.01-0.08 (BEAKER) (test itgi=064) IMMATURE GRANULOCYTES-RELATIVE 0 % 0-1 PERCENT (BEAKER) (test gsgz=5383) [id number] 14:33:00 Test Item Value Reference Range Comments HEMOGLOBIN (BEAKER) (test sghp=110) 9.3 GM/DL 13.0-16.8 PLATELET [id number] 14:33:00 Test Item Value Reference Range Comments PLATELET COUNT (BEAKER) (test bvsk=473) 48 K/CU MM 150-430 ALKALINE [id number] 14:27:00 Test Item Value Reference Range Comments ALKALINE PHOSPHATASE (BEAKER) (test leim=146) 159 U/L 40-150 Effective 06/01/2014: Alkaline Phosphatase Reference Range Change-Adult onlyNew : 40-150 Previous: [id number] 14:27:00 Test Item Value Reference Range Comments SODIUM (BEAKER) (test kwgf=548) 131 meq/L 136-145 POTASSIUM (BEAKER) (test wosg=399) 4.4 meq/L 3.5-5.1 CHLORIDE (BEAKER) (test iqtn=825) 98 meq/L 98-107 CO2 (BEAKER) (test aber=787) 28 meq/L 22-29 AST (SGOT)2017-01-04 14:27:00 Test Item Value Reference Range Comments AST (SGOT) (BEAKER) (test dlsy=204) 60 U/L 5-34 BUN AND [id number] 14:27:00 Test Item Value Reference Range Comments BLOOD UREA NITROGEN 48 mg/dL 7-21 (BEAKER) (test xttw=295) CREATININE (BEAKER) (test 1.43 mg/dL 0.57-1.25 mrus=706) EGFR (BEAKER) (test 49 mL/min/1.73 sq m ESTIMATED GFR IS NOT vaya=5025) ACCURATE CREATININE CLEARANCE IN PREDICTING GLOMERULAR FILTRATION RATE. ESTIMATED GFR IS NOT APPLICABLE FOR DIALYSIS PATIENTS. [id number] 14:13:00 Test Item Value Reference Range Comments PROTIME (BEAKER) (test cfsm=056) 16.7 seconds 11.7-14.7 INR (BEAKER) (test xxjz=876) 1.4 <=5.9 PARTIAL THROMBOPLASTIN TIME (BEAKER) (test 35.7 seconds 22.5-36.0 lxyz=821) RECOMMENDED COUMADIN/WARFARIN INR THERAPY RANGESSTANDARD DOSE: 2.0 - 3.0 Includes: PROPHYLAXIS forvenous thrombosis, systemic embolization; TREATMENT for venous thrombosis and/or pulmonary embolus.HIGH RISK: Target INR is 2.5-3.5 for patients with mechanical heart valves.B-TYPE NATRIURETIC FACTOR (BNP)2016-09 13:43:00 Test Item Value Reference Range Comments B-TYPE NATRIURETIC PEPTIDE (BEAKER) (test 454 pg/mL 0-100 kcjb=174) [id number] 13:34:00 Test Item Value Reference Range Comments MAGNESIUM (BEAKER) (test acmi=110) 1.6 mg/dL 1.6-2.6 BASIC METABOLIC [id number] 13:34:00 Test Item Value Reference Range Comments SODIUM (BEAKER) (test 133 meq/L 136-145 timy=497) POTASSIUM (BEAKER) (test 4.9 meq/L 3.5-5.1 qqtn=991) CHLORIDE (BEAKER) (test 104 meq/L 98-107 umsr=708) CO2 (BEAKER) (test 22 meq/L 22-29 haft=182) BLOOD UREA NITROGEN 23 mg/dL 7-21 (BEAKER) (test fkve=072) CREATININE (BEAKER) (test 1.06 mg/dL 0.57-1.25 zuhd=306) GLUCOSE RANDOM (BEAKER) 114 mg/dL 70-105 (test vkao=078) CALCIUM (BEAKER) (test 8.8 mg/dL 8.4-10.2 ocwg=899) EGFR (BEAKER) (test 70 mL/min/1.73 sq m ESTIMATED GFR IS NOT hksm=1148) ACCURATE CREATININE CLEARANCE IN PREDICTING GLOMERULAR FILTRATION RATE. ESTIMATED GFR IS NOT APPLICABLE FOR DIALYSIS PATIENTS. BLOOD [id number] 23:00:00 Test Item Value Reference Range Comments CULTURE (BEAKER) (test rvuk=4749) No growth in 5 days URINE [id number] 14:21:00 Test Item Value Reference Range Comments CULTURE (BEAKER) (test jdrh=2464) No growth BLOOD [id number] 11:00:00 Test Item Value Reference Range Comments CULTURE (BEAKER) (test ldro=3914) No growth in 5 days BLOOD [id number] 05:00:00 Test Item Value Reference Range Comments CULTURE (BEAKER) (test trsk=2979) No growth in 5 days POCT-GLUCOSE [id number] 08:53:00 Test Item Value Reference Range Comments POC-GLUCOSE METER (BEAKER) 114 mg/dL 70-110 TESTED AT [facility] [address] [facility] (test qkrq=2055) [facility] [id number] [id number] 05:32:00 Test Item Value Reference Range Comments PHOSPHORUS (BEAKER) (test pjzs=763) 2.4 mg/dL 2.3-4.7 [id number] 05:32:00 Test Item Value Reference Range Comments MAGNESIUM (BEAKER) (test sffk=561) 2.0 mg/dL 1.6-2.6 BASIC METABOLIC [id number] 05:32:00 Test Item Value Reference Range Comments SODIUM (BEAKER) (test 133 meq/L 136-145 wvph=419) POTASSIUM (BEAKER) (test 3.9 meq/L 3.5-5.1 uqvh=975) CHLORIDE (BEAKER) (test 104 meq/L 98-107 qddw=633) CO2 (BEAKER) (test 23 meq/L 22-29 qelm=151) BLOOD UREA NITROGEN 25 mg/dL 7-21 (BEAKER) (test uwhx=853) CREATININE (BEAKER) (test 1.17 mg/dL 0.57-1.25 tuwk=086) GLUCOSE RANDOM (BEAKER) 127 mg/dL 70-105 (test vsxz=972) CALCIUM (BEAKER) (test 8.3 mg/dL 8.4-10.2 yutn=557) EGFR (BEAKER) (test 62 mL/min/1.73 sq m ESTIMATED GFR IS NOT gvws=5779) ACCURATE CREATININE CLEARANCE IN PREDICTING GLOMERULAR FILTRATION RATE. ESTIMATED GFR IS NOT APPLICABLE FOR DIALYSIS PATIENTS. HEPATIC FUNCTION [id number] 05:32:00 Test Item Value Reference Range Comments TOTAL PROTEIN (BEAKER) (test nyzp=833) 5.7 gm/dL 6.0-8.3 ALBUMIN (BEAKER) (test dipd=2309) 2.6 g/dL 3.5-5.0 BILIRUBIN TOTAL (BEAKER) (test qvpn=346) 1.6 mg/dL 0.2-1.2 BILIRUBIN DIRECT (BEAKER) (test hjtp=369) 0.8 mg/dL 0.1-0.5 ALKALINE PHOSPHATASE (BEAKER) (test cqoz=657) 91 U/L 40-150 AST (SGOT) (BEAKER) (test fate=897) 28 U/L 5-34 ALT (SGPT) (BEAKER) (test vznm=976) 13 U/L 6-55 CALCIUM, [id number] 05:21:00 Test Item Value Reference Range Comments CALCIUM IONIZED (BEAKER) (test oyow=063) 1.05 mmol/L 1.12-1.27 PH, BLOOD (BEAKER) (test yzyr=1151) 7.46 CBC W/PLT COUNT & AUTO [id number] 05:08:00 Test Item Value Reference Range Comments WHITE BLOOD CELL COUNT (BEAKER) (test rckq=824) 6.0 K/ L 4.0-10.0 RED BLOOD CELL COUNT (BEAKER) (test gqay=129) 2.80 M/ L 4.20-5.80 HEMOGLOBIN (BEAKER) (test pjjm=889) 8.3 GM/DL 13.0-16.8 HEMATOCRIT (BEAKER) (test vkjz=927) 25.4 % 40.0-50.0 MEAN CORPUSCULAR VOLUME (BEAKER) (test lget=616) 90.6 fL 82.0-98.0 MEAN CORPUSCULAR HEMOGLOBIN (BEAKER) (test 29.5 pg 27.0-33.0 nsfq=138) MEAN CORPUSCULAR HEMOGLOBIN CONC (BEAKER) (test 32.5 GM/DL 32.0-36.0 yapp=003) RED CELL DISTRIBUTION WIDTH (BEAKER) (test 17.4 % 10.3-14.2 rkce=542) PLATELET COUNT (BEAKER) (test sgup=929) 53 K/CU MM 150-430 MEAN PLATELET VOLUME (BEAKER) (test wyer=276) 9.1 fL 6.5-10.5 NUCLEATED RED BLOOD CELLS (BEAKER) (test 0 /100 WBC 0-0 pblt=389) NEUTROPHILS RELATIVE PERCENT (BEAKER) (test 75 % coep=484) LYMPHOCYTES RELATIVE PERCENT (BEAKER) (test 7 % hvej=071) MONOCYTES RELATIVE PERCENT (BEAKER) (test 10 % oxmu=581) EOSINOPHILS RELATIVE PERCENT (BEAKER) (test 8 % oxua=737) BASOPHILS RELATIVE PERCENT (BEAKER) (test 0 % kvfo=346) NEUTROPHILS ABSOLUTE COUNT (BEAKER) (test 4.47 K/ L 1.80-8.00 ndop=642) LYMPHOCYTES ABSOLUTE COUNT (BEAKER) (test 0.39 K/ L 1.48-4.50 izas=567) MONOCYTES ABSOLUTE COUNT (BEAKER) (test mlyw=567) 0.59 K/ L 0.00-1.30 EOSINOPHILS ABSOLUTE COUNT (BEAKER) (test 0.49 K/ L 0.00-0.50 iiwg=191) BASOPHILS ABSOLUTE COUNT (BEAKER) (test efbk=932) 0.01 K/ L 0.00-0.20 0.00POCT-GLUCOSE [id number] 21:17:00 Test Item Value Reference Range Comments POC-GLUCOSE METER (BEAKER) 176 mg/dL 70-110 TESTED AT [address] (test qobf=6611) [facility] [address] POCT-GLUCOSE [id number] 17:54:00 Test Item Value Reference Range Comments POC-GLUCOSE METER (BEAKER) 214 mg/dL 70-110 TESTED AT [address] (test tmha=8611) [facility] [address] POCT-GLUCOSE [id number] 17:14:00 Test Item Value Reference Range Comments POC-GLUCOSE METER (BEAKER) 205 mg/dL 70-110 TESTED AT [address] (test pgoh=9299) [facility] [address] PROTHROMBIN [id number] 16:18:00 Test Item Value Reference Range Comments PROTIME (BEAKER) (test eqlk=718) 17.4 seconds 11.7-14.7 INR (BEAKER) (test girj=565) 1.4 <=5.9 RECOMMENDED COUMADIN/WARFARIN INR THERAPY RANGESSTANDARD DOSE: 2.0 - 3.0 Includes: PROPHYLAXIS forvenous thrombosis, systemic embolization; TREATMENT for venous thrombosis and/or pulmonary embolus.HIGH RISK: Target INR is 2.5-3.5 for patients with mechanical heart valves.URINALYSIS W/ [id number] 15 :46:00 Test Item Value Reference Range Comments COLOR (BEAKER) (test ejtq=204) Yellow CLARITY (BEAKER) (test jhpb=479) Hazy SPECIFIC GRAVITY UA (BEAKER) (test yjgt=814) 1.024 1.001-1.035 PH UA (BEAKER) (test iaen=552) 5.0 5.0-8.0 PROTEIN UA (BEAKER) (test nasj=569) 10 mg/dL Negative GLUCOSE UA (BEAKER) (test kjuv=667) Negative Negative KETONES UA (BEAKER) (test bmym=355) Negative Negative BILIRUBIN UA (BEAKER) (test ccfj=168) Negative Negative BLOOD UA (BEAKER) (test drnq=855) Small Negative NITRITE UA (BEAKER) (test yobz=013) Negative Negative LEUKOCYTE ESTERASE UA (BEAKER) (test yjir=229) Moderate Negative UROBILINOGEN UA (BEAKER) (test tkfx=854) 0.2 mg/dL 0.2-1.0 RBC UA (BEAKER) (test wqog=203) 5 /HPF WBC UA (BEAKER) (test drep=891) 22 /HPF BACTERIA (BEAKER) (test niwv=465) Rare SQUAMOUS EPITHELIAL (BEAKER) (test donr=359) 1 /HPF SOURCE(BEAKER) (test jdhj=4806) HEPATIC FUNCTION [id number] 12:12:00 Test Item Value Reference Range Comments TOTAL PROTEIN (BEAKER) (test btav=650) 5.8 gm/dL 6.0-8.3 ALBUMIN (BEAKER) (test isuf=7049) 2.7 g/dL 3.5-5.0 BILIRUBIN TOTAL (BEAKER) (test jgib=447) 2.4 mg/dL 0.2-1.2 BILIRUBIN DIRECT (BEAKER) (test lldj=079) 0.6 mg/dL 0.1-0.5 ALKALINE PHOSPHATASE (BEAKER) (test jhmz=952) 97 U/L 40-150 AST (SGOT) (BEAKER) (test vihy=001) 30 U/L 5-34 ALT (SGPT) (BEAKER) (test pvmo=668) 13 U/L 6-55 Specimen slightly ictericPOCT-GLUCOSE [id number] 08:27:00 Test Item Value Reference Range Comments POC-GLUCOSE METER (BEAKER) 171 mg/dL 70-110 TESTED AT [facility] [address] [place] [address] (test ifxb=0894) [facility] [address] [id number] 03:37:00 Test Item Value Reference Range Comments PHOSPHORUS (BEAKER) (test crxr=606) 3.0 mg/dL 2.3-4.7 [id number] 03:37:00 Test Item Value Reference Range Comments MAGNESIUM (BEAKER) (test aytg=679) 1.8 mg/dL 1.6-2.6 BASIC METABOLIC [id number] 03:37:00 Test Item Value Reference Range Comments SODIUM (BEAKER) (test 135 meq/L 136-145 seua=603) POTASSIUM (BEAKER) (test 4.6 meq/L 3.5-5.1 apnk=197) CHLORIDE (BEAKER) (test 104 meq/L 98-107 dnvu=163) CO2 (BEAKER) (test 23 meq/L 22-29 maeb=669) BLOOD UREA NITROGEN 22 mg/dL 7-21 (BEAKER) (test baxy=467) CREATININE (BEAKER) (test 1.15 mg/dL 0.57-1.25 vkcs=647) GLUCOSE RANDOM (BEAKER) 162 mg/dL 70-105 (test ozcf=094) CALCIUM (BEAKER) (test 8.3 mg/dL 8.4-10.2 pkgl=332) EGFR (BEAKER) (test 63 mL/min/1.73 sq m ESTIMATED GFR IS NOT xdgn=9469) ACCURATE CREATININE CLEARANCE IN PREDICTING GLOMERULAR FILTRATION RATE. ESTIMATED GFR IS NOT APPLICABLE FOR DIALYSIS PATIENTS. Specimen slightly ictericCBC W/PLT COUNT & AUTO [id number] 03:32 :00 Test Item Value Reference Range Comments WHITE BLOOD CELL COUNT (BEAKER) (test rfsg=175) 7.7 K/ L 4.0-10.0 RED BLOOD CELL COUNT (BEAKER) (test cpmg=404) 2.96 M/ L 4.20-5.80 HEMOGLOBIN (BEAKER) (test mniy=692) 9.1 GM/DL 13.0-16.8 HEMATOCRIT (BEAKER) (test hbff=520) 26.7 % 40.0-50.0 MEAN CORPUSCULAR VOLUME (BEAKER) (test ubgc=673) 90.2 fL 82.0-98.0 MEAN CORPUSCULAR HEMOGLOBIN (BEAKER) (test 30.8 pg 27.0-33.0 laoo=092) MEAN CORPUSCULAR HEMOGLOBIN CONC (BEAKER) (test 34.2 GM/DL 32.0-36.0 lfsb=034) RED CELL DISTRIBUTION WIDTH (BEAKER) (test 17.2 % 10.3-14.2 nien=250) PLATELET COUNT (BEAKER) (test lrte=292) 50 K/CU MM 150-430 MEAN PLATELET VOLUME (BEAKER) (test wzlt=355) 8.2 fL 6.5-10.5 NUCLEATED RED BLOOD CELLS (BEAKER) (test 0 /100 WBC 0-0 zikl=415) NEUTROPHILS RELATIVE PERCENT (BEAKER) (test 80 % ylna=846) LYMPHOCYTES RELATIVE PERCENT (BEAKER) (test 5 % wbaw=953) MONOCYTES RELATIVE PERCENT (BEAKER) (test 10 % kjpi=130) EOSINOPHILS RELATIVE PERCENT (BEAKER) (test 5 % wepz=412) BASOPHILS RELATIVE PERCENT (BEAKER) (test 0 % yeok=907) NEUTROPHILS ABSOLUTE COUNT (BEAKER) (test 6.17 K/ L 1.80-8.00 ntbl=271) LYMPHOCYTES ABSOLUTE COUNT (BEAKER) (test 0.38 K/ L 1.48-4.50 hmie=902) MONOCYTES ABSOLUTE COUNT (BEAKER) (test puod=599) 0.75 K/ L 0.00-1.30 EOSINOPHILS ABSOLUTE COUNT (BEAKER) (test 0.36 K/ L 0.00-0.50 pcfo=081) BASOPHILS ABSOLUTE COUNT (BEAKER) (test ucbh=131) 0.02 K/ L 0.00-0.20 0.00CALCIUM, [id number] 03:29:00 Test Item Value Reference Range Comments CALCIUM IONIZED (BEAKER) (test ikpj=435) 1.06 mmol/L 1.12-1.27 PH, BLOOD (BEAKER) (test zzpw=0061) 7.41 POCT-GLUCOSE [id number] 21:59:00 Test Item Value Reference Range Comments POC-GLUCOSE METER (BEAKER) 181 mg/dL 70-110 TESTED AT [facility] [address] [facility] (test sram=6425) [facility] [address] BLOOD GAS, [id number] 10:35:00 Test Item Value Reference Range Comments PH ARTERIAL (BEAKER) (test jnak=681) 7.41 7.35-7.45 PCO2 ARTERIAL (BEAKER) (test podn=366) 40 mmHg 35-45 PO2 ARTERIAL (BEAKER) (test izqd=627) 231 mmHg 80-90 O2 SATURATION ARTERIAL (BEAKER) (test pebd=821) 99.5 % 96.0-97.0 HCO3 ARTERIAL (BEAKER) (test dciv=772) 25 mmol/L 21-29 BASE EXCESS ARTERIAL (BEAKER) (test gcjn=815) 0.1 mmol/L -2.0-3.0 PATIENT TEMPERATURE (BEAKER) (test ttew=2510) 37.0 C FIO2 (BEAKER) (test oswl=7469) 21.0 % SODIUM NA-STAT [id number] 10:35:00 Test Item Value Reference Range Comments SODIUM (BEAKER) (test rrdn=199) 132 meq/L 135-148 HGB/HCT (H&H) - STAT [id number] 10:35:00 Test Item Value Reference Range Comments HEMOGLOBIN (BEAKER) (test kdjl=732) 7.6 g/dL 13.0-16.8 HEMATOCRIT (BEAKER) (test lbzd=318) 22.0 % 40.0-50.0 GLUCOSE-STAT [id number] 10:34:00 Test Item Value Reference Range Comments GLUCOSE RANDOM (BEAKER) (test vmnm=969) 99 mg/dL 70-110 POTASSIUM-STAT [id number] 10:34:00 Test Item Value Reference Range Comments POTASSIUM (BEAKER) (test gyko=152) 3.5 meq/L 3.6-5.5 [id number] 10:31:00 Test Item Value Reference Range Comments ACTIVATED CLOTTING TIME 270 sec TESTED AT [address] ([facility]) (test noke=929) [place] [address] [id number] 10:05:00 Test Item Value Reference Range Comments ACTIVATED CLOTTING TIME 286 sec TESTED AT [address] ([facility]) (test jxqk=065) [place] [address] POCT-GLUCOSE [id number] 09:51:00 Test Item Value Reference Range Comments POC-GLUCOSE METER (AKER) 100 mg/dL 70-110 TESTED AT [address] (test msoa=3942) [place] [address] BLOOD GAS, [id number] 08:39:00 Test Item Value Reference Range Comments PH ARTERIAL (BEAKER) (test smkh=407) 7.45 7.35-7.45 PCO2 ARTERIAL (BEAKER) (test hicq=485) 39 mmHg 35-45 PO2 ARTERIAL (BEAKER) (test khfs=043) 424 mmHg 80-90 O2 SATURATION ARTERIAL (BEAKER) (test cixe=237) 99.8 % 96.0-97.0 HCO3 ARTERIAL (BEAKER) (test ywxu=672) 26 mmol/L 21-29 BASE EXCESS ARTERIAL (BEAKER) (test uxsc=568) 2.1 mmol/L -2.0-3.0 PATIENT TEMPERATURE (BEAKER) (test nfwl=6581) 37.0 C FIO2 (BEAKER) (test wdvb=7898) 100.0 % SODIUM NA-STAT [id number] 08:39:00 Test Item Value Reference Range Comments SODIUM (BEAKER) (test vykf=362) 132 meq/L 135-148 GLUCOSE-STAT [id number] 08:39:00 Test Item Value Reference Range Comments GLUCOSE RANDOM (BEAKER) (test fnzs=594) 131 mg/dL 70-110 HGB/HCT (H&H) - STAT [id number] 08:39:00 Test Item Value Reference Range Comments HEMOGLOBIN (BEAKER) (test uwjp=347) 8.5 g/dL 13.0-16.8 HEMATOCRIT (BEAKER) (test tjbj=435) 25.0 % 40.0-50.0 POTASSIUM-STAT [id number] 08:38:00 Test Item Value Reference Range Comments POTASSIUM (BEAKER) (test qjol=673) 3.6 meq/L 3.6-5.5 POCT-GLUCOSE [id number] 07:47:00 Test Item Value Reference Range Comments POC-GLUCOSE METER (BEAKER) 70 mg/dL 70-110 TESTED AT [address] (test deco=1907) [facility] [address] [id number] 04:07:00 Test Item Value Reference Range Comments MAGNESIUM (BEAKER) (test btfn=040) 2.1 mg/dL 1.6-2.6 [id number] 04:07:00 Test Item Value Reference Range Comments PHOSPHORUS (BEAKER) (test lbkd=671) 2.6 mg/dL 2.3-4.7 CALCIUM, [id number] 04:01:00 Test Item Value Reference Range Comments CALCIUM IONIZED (BEAKER) (test qmvq=650) 1.11 mmol/L 1.12-1.27 PH, BLOOD (BEAKER) (test sgse=2992) 7.40 BASIC METABOLIC [id number] 04:00:00 Test Item Value Reference Range Comments SODIUM (BEAKER) (test 133 meq/L 136-145 sfvy=429) POTASSIUM (BEAKER) (test 4.0 meq/L 3.5-5.1 uzms=642) CHLORIDE (BEAKER) (test 101 meq/L 98-107 bxiq=839) CO2 (BEAKER) (test 26 meq/L 22-29 pmza=652) BLOOD UREA NITROGEN 21 mg/dL 7-21 (BEAKER) (test wiub=223) CREATININE (BEAKER) (test 1.11 mg/dL 0.57-1.25 nulp=272) GLUCOSE RANDOM (BEAKER) 141 mg/dL 70-105 (test znkp=369) CALCIUM (BEAKER) (test 8.3 mg/dL 8.4-10.2 vklf=142) EGFR (BEAKER) (test 66 mL/min/1.73 sq m ESTIMATED GFR IS NOT crnd=8990) ACCURATE CREATININE CLEARANCE IN PREDICTING GLOMERULAR FILTRATION RATE. ESTIMATED GFR IS NOT APPLICABLE FOR DIALYSIS PATIENTS. CBC W/PLT COUNT & AUTO [id number] 03:40:00 Test Item Value Reference Range Comments WHITE BLOOD CELL COUNT (BEAKER) (test imeg=946) 4.6 K/ L 4.0-10.0 RED BLOOD CELL COUNT (BEAKER) (test jkjj=624) 3.00 M/ L 4.20-5.80 HEMOGLOBIN (BEAKER) (test qgic=444) 9.0 GM/DL 13.0-16.8 HEMATOCRIT (BEAKER) (test zmgg=520) 26.5 % 40.0-50.0 MEAN CORPUSCULAR VOLUME (BEAKER) (test cmvc=262) 88.4 fL 82.0-98.0 MEAN CORPUSCULAR HEMOGLOBIN (BEAKER) (test 29.9 pg 27.0-33.0 wlwz=127) MEAN CORPUSCULAR HEMOGLOBIN CONC (BEAKER) (test 33.8 GM/DL 32.0-36.0 gpni=909) RED CELL DISTRIBUTION WIDTH (BEAKER) (test 17.7 % 10.3-14.2 kdgp=370) PLATELET COUNT (BEAKER) (test nlwo=361) 50 K/CU MM 150-430 MEAN PLATELET VOLUME (BEAKER) (test bzug=896) 8.5 fL 6.5-10.5 NUCLEATED RED BLOOD CELLS (BEAKER) (test 0 /100 WBC 0-0 vynx=405) NEUTROPHILS RELATIVE PERCENT (BEAKER) (test 68 % fizl=138) LYMPHOCYTES RELATIVE PERCENT (BEAKER) (test 8 % egxt=543) MONOCYTES RELATIVE PERCENT (BEAKER) (test 13 % qzjz=843) EOSINOPHILS RELATIVE PERCENT (BEAKER) (test 10 % czva=506) BASOPHILS RELATIVE PERCENT (BEAKER) (test 0 % zlie=056) NEUTROPHILS ABSOLUTE COUNT (BEAKER) (test 3.10 K/ L 1.80-8.00 smyz=899) LYMPHOCYTES ABSOLUTE COUNT (BEAKER) (test 0.38 K/ L 1.48-4.50 vugq=117) MONOCYTES ABSOLUTE COUNT (BEAKER) (test wcit=875) 0.60 K/ L 0.00-1.30 EOSINOPHILS ABSOLUTE COUNT (BEAKER) (test 0.47 K/ L 0.00-0.50 iskk=573) BASOPHILS ABSOLUTE COUNT (BEAKER) (test okxt=331) 0.00 K/ L 0.00-0.20 0.00POCT-GLUCOSE [id number] 22:30:00 Test Item Value Reference Range Comments POC-GLUCOSE METER (BEAKER) 235 mg/dL 70-110 TESTED AT [address] (test pxzh=2160) [place] [id number] POCT-GLUCOSE [id number] 17:54:00 Test Item Value Reference Range Comments POC-GLUCOSE METER (BEAKER) 228 mg/dL 70-110 TESTED AT [address] (test cast=5172) [facility] [address] POCT-GLUCOSE [id number] 12:48:00 Test Item Value Reference Range Comments POC-GLUCOSE METER (BEAKER) 125 mg/dL 70-110 TESTED AT [address] (test idmc=3157) [facility] [address] POCT-GLUCOSE [id number] 08:10:00 Test Item Value Reference Range Comments POC-GLUCOSE METER (BEAKER) 222 mg/dL 70-110 TESTED AT [address] (test sndb=8939) [facility] [address] POCT-GLUCOSE [id number] 05:24:00 Test Item Value Reference Range Comments POC-GLUCOSE METER (BEAKER) 130 mg/dL 70-110 TESTED AT [address] (test kenl=7151) [facility] [address] CALCIUM, [id number] 04:47:00 Test Item Value Reference Range Comments CALCIUM IONIZED (BEAKER) (test ucml=987) 1.10 mmol/L 1.12-1.27 PH, BLOOD (BEAKER) (test gdfr=3474) 7.50 CBC W/PLT COUNT & AUTO [id number] 04:46:00 Test Item Value Reference Range Comments WHITE BLOOD CELL COUNT (BEAKER) (test hvjb=033) 4.1 K/ L 4.0-10.0 RED BLOOD CELL COUNT (BEAKER) (test wbar=021) 2.85 M/ L 4.20-5.80 HEMOGLOBIN (BEAKER) (test fkvk=483) 8.2 GM/DL 13.0-16.8 HEMATOCRIT (BEAKER) (test pgdl=379) 25.6 % 40.0-50.0 MEAN CORPUSCULAR VOLUME (BEAKER) (test gxpr=860) 89.8 fL 82.0-98.0 MEAN CORPUSCULAR HEMOGLOBIN (BEAKER) (test 28.7 pg 27.0-33.0 mluk=025) MEAN CORPUSCULAR HEMOGLOBIN CONC (BEAKER) (test 32.0 GM/DL 32.0-36.0 zyku=718) RED CELL DISTRIBUTION WIDTH (BEAKER) (test 17.4 % 10.3-14.2 omkx=628) PLATELET COUNT (BEAKER) (test meao=150) 55 K/CU MM 150-430 MEAN PLATELET VOLUME (BEAKER) (test cvhg=956) 8.4 fL 6.5-10.5 NUCLEATED RED BLOOD CELLS (BEAKER) (test 0 /100 WBC 0-0 zadd=020) NEUTROPHILS RELATIVE PERCENT (BEAKER) (test 68 % prfd=726) LYMPHOCYTES RELATIVE PERCENT (BEAKER) (test 10 % pkhq=472) MONOCYTES RELATIVE PERCENT (BEAKER) (test 12 % fvna=388) EOSINOPHILS RELATIVE PERCENT (BEAKER) (test 10 % rvqq=712) BASOPHILS RELATIVE PERCENT (BEAKER) (test 0 % ozjh=283) NEUTROPHILS ABSOLUTE COUNT (BEAKER) (test 2.80 K/ L 1.80-8.00 pnry=072) LYMPHOCYTES ABSOLUTE COUNT (BEAKER) (test 0.39 K/ L 1.48-4.50 uyjy=221) MONOCYTES ABSOLUTE COUNT (BEAKER) (test dshf=376) 0.51 K/ L 0.00-1.30 EOSINOPHILS ABSOLUTE COUNT (BEAKER) (test 0.40 K/ L 0.00-0.50 xwhu=392) BASOPHILS ABSOLUTE COUNT (BEAKER) (test ypsd=478) 0.02 K/ L 0.00-0.20 [id number] 04:35:00 Test Item Value Reference Range Comments PHOSPHORUS (BEAKER) (test hzch=214) 2.5 mg/dL 2.3-4.7 [id number] 04:35:00 Test Item Value Reference Range Comments MAGNESIUM (BEAKER) (test bgki=176) 2.2 mg/dL 1.6-2.6 BASIC METABOLIC [id number] 04:35:00 Test Item Value Reference Range Comments SODIUM (BEAKER) (test 133 meq/L 136-145 zhrb=207) POTASSIUM (BEAKER) (test 4.2 meq/L 3.5-5.1 iazb=730) CHLORIDE (BEAKER) (test 101 meq/L 98-107 bqrk=497) CO2 (BEAKER) (test 24 meq/L 22-29 aaug=180) BLOOD UREA NITROGEN 29 mg/dL 7-21 (BEAKER) (test qmka=503) CREATININE (BEAKER) (test 1.19 mg/dL 0.57-1.25 pxax=959) GLUCOSE RANDOM (BEAKER) 154 mg/dL 70-105 (test fcka=971) CALCIUM (BEAKER) (test 8.4 mg/dL 8.4-10.2 knep=608) EGFR (BEAKER) (test 61 mL/min/1.73 sq m ESTIMATED GFR IS NOT irkl=3791) ACCURATE CREATININE CLEARANCE IN PREDICTING GLOMERULAR FILTRATION RATE. ESTIMATED GFR IS NOT APPLICABLE FOR DIALYSIS PATIENTS. HEPATIC FUNCTION [id number] 04:35:00 Test Item Value Reference Range Comments TOTAL PROTEIN (BEAKER) (test kbnl=179) 6.2 gm/dL 6.0-8.3 ALBUMIN (BEAKER) (test hcai=4812) 2.9 g/dL 3.5-5.0 BILIRUBIN TOTAL (BEAKER) (test sodu=736) 1.0 mg/dL 0.2-1.2 BILIRUBIN DIRECT (BEAKER) (test rjaq=278) 0.6 mg/dL 0.1-0.5 ALKALINE PHOSPHATASE (BEAKER) (test ahey=517) 114 U/L 40-150 AST (SGOT) (BEAKER) (test ivyl=617) 23 U/L 5-34 ALT (SGPT) (BEAKER) (test jlox=662) 14 U/L 6-55 POCT-GLUCOSE [id number] 21:28:00 Test Item Value Reference Range Comments POC-GLUCOSE METER (BEAKER) 242 mg/dL 70-110 TESTED AT [address] (test oqod=1036) [facility] [address] [id number] 18:04:00 Test Item Value Reference Range Comments PREALBUMIN (BEAKER) (test wgtg=506) 9 mg/dL 14-45 Listed for liver transplant - Nutrition surveillance (hepatology)POCT-GLUCOSE [id number] 17:13:00 Test Item Value Reference Range Comments POC-GLUCOSE METER (BEAKER) 161 mg/dL 70-110 TESTED AT [address] (test ouiw=6285) [facility] [address] POCT-GLUCOSE [id number] 11:14:00 Test Item Value Reference Range Comments POC-GLUCOSE METER (BEAKER) 298 mg/dL 70-110 TESTED AT [address] (test ztkj=5842) [facility] [address] POCT-GLUCOSE [id number] 07:38:00 Test Item Value Reference Range Comments POC-GLUCOSE METER (BEAKER) 113 mg/dL 70-110 TESTED AT [address] (test sdhz=9706) [facility] [address] [id number] 05:19:00 Test Item Value Reference Range Comments PHOSPHORUS (BEAKER) (test uyqm=076) 2.4 mg/dL 2.3-4.7 [id number] 05:19:00 Test Item Value Reference Range Comments MAGNESIUM (BEAKER) (test jnkq=869) 2.4 mg/dL 1.6-2.6 BASIC METABOLIC [id number] 05:19:00 Test Item Value Reference Range Comments SODIUM (BEAKER) (test 135 meq/L 136-145 wubf=108) POTASSIUM (BEAKER) (test 4.1 meq/L 3.5-5.1 uqsz=084) CHLORIDE (BEAKER) (test 100 meq/L 98-107 quss=454) CO2 (BEAKER) (test 29 meq/L 22-29 ybrd=667) BLOOD UREA NITROGEN 40 mg/dL 7-21 (BEAKER) (test lvkd=932) CREATININE (BEAKER) (test 1.31 mg/dL 0.57-1.25 zfrx=219) GLUCOSE RANDOM (BEAKER) 84 mg/dL 70-105 (test fnit=799) CALCIUM (BEAKER) (test 8.8 mg/dL 8.4-10.2 lwhp=788) EGFR (BEAKER) (test 55 mL/min/1.73 sq m ESTIMATED GFR IS NOT davq=1309) ACCURATE CREATININE CLEARANCE IN PREDICTING GLOMERULAR FILTRATION RATE. ESTIMATED GFR IS NOT APPLICABLE FOR DIALYSIS PATIENTS. HEPATIC FUNCTION [id number] 05:19:00 Test Item Value Reference Range Comments TOTAL PROTEIN (BEAKER) (test ymow=988) 6.8 gm/dL 6.0-8.3 ALBUMIN (BEAKER) (test eaoh=0277) 3.1 g/dL 3.5-5.0 BILIRUBIN TOTAL (BEAKER) (test slfw=887) 1.2 mg/dL 0.2-1.2 BILIRUBIN DIRECT (BEAKER) (test cngm=516) 0.7 mg/dL 0.1-0.5 ALKALINE PHOSPHATASE (BEAKER) (test nnwm=508) 118 U/L 40-150 AST (SGOT) (BEAKER) (test hjqp=152) 30 U/L 5-34 ALT (SGPT) (BEAKER) (test aspq=983) 17 U/L 6-55 B-TYPE NATRIURETIC FACTOR (BNP)2016-09-03 05:18:00 Test Item Value Reference Range Comments B-TYPE NATRIURETIC PEPTIDE (BEAKER) (test 138 pg/mL 0-100 olmu=752) CBC W/PLT COUNT & AUTO [id number] 05:11:00 Test Item Value Reference Range Comments WHITE BLOOD CELL COUNT (BEAKER) (test cupu=859) 6.5 K/ L 4.0-10.0 RED BLOOD CELL COUNT (BEAKER) (test taou=843) 2.93 M/ L 4.20-5.80 HEMOGLOBIN (BEAKER) (test nlnn=202) 8.6 GM/DL 13.0-16.8 HEMATOCRIT (BEAKER) (test gezq=258) 25.9 % 40.0-50.0 MEAN CORPUSCULAR VOLUME (BEAKER) (test oegz=364) 88.5 fL 82.0-98.0 MEAN CORPUSCULAR HEMOGLOBIN (BEAKER) (test 29.2 pg 27.0-33.0 rdzt=836) MEAN CORPUSCULAR HEMOGLOBIN CONC (BEAKER) (test 33.0 GM/DL 32.0-36.0 absz=874) RED CELL DISTRIBUTION WIDTH (BEAKER) (test 18.2 % 10.3-14.2 erxo=851) PLATELET COUNT (BEAKER) (test mljp=479) 72 K/CU MM 150-430 MEAN PLATELET VOLUME (BEAKER) (test xfuq=989) 7.6 fL 6.5-10.5 NUCLEATED RED BLOOD CELLS (BEAKER) (test 0 /100 WBC 0-0 rsnp=362) NEUTROPHILS RELATIVE PERCENT (BEAKER) (test 72 % vskg=143) LYMPHOCYTES RELATIVE PERCENT (BEAKER) (test 8 % yrxw=139) MONOCYTES RELATIVE PERCENT (BEAKER) (test 11 % fbxc=146) EOSINOPHILS RELATIVE PERCENT (BEAKER) (test 9 % cjpp=123) BASOPHILS RELATIVE PERCENT (BEAKER) (test 1 % ccfh=063) NEUTROPHILS ABSOLUTE COUNT (BEAKER) (test 4.69 K/ L 1.80-8.00 jgnx=343) LYMPHOCYTES ABSOLUTE COUNT (BEAKER) (test 0.49 K/ L 1.48-4.50 yxne=577) MONOCYTES ABSOLUTE COUNT (BEAKER) (test kfak=023) 0.71 K/ L 0.00-1.30 EOSINOPHILS ABSOLUTE COUNT (BEAKER) (test 0.56 K/ L 0.00-0.50 pfju=911) BASOPHILS ABSOLUTE COUNT (BEAKER) (test kcto=860) 0.05 K/ L 0.00-0.20 0.00CALCIUM, [id number] 04:57:00 Test Item Value Reference Range Comments CALCIUM IONIZED (BEAKER) (test xmrt=219) 1.10 mmol/L 1.12-1.27 PH, BLOOD (BEAKER) (test flcb=4161) 7.40 POCT-GLUCOSE [id number] 21:19:00 Test Item Value Reference Range Comments POC-GLUCOSE METER (BEAKER) 265 mg/dL 70-110 TESTED AT [facility] [address] [facility] (test ntup=4981) [facility] [address] POCT-GLUCOSE [id number] 17:33:00 Test Item Value Reference Range Comments POC-GLUCOSE METER (BEAKER) 271 mg/dL 70-110 TESTED AT [facility] [address] [facility] (test nijg=0443) [facility] [address] POCT-GLUCOSE [id number] 08:18:00 Test Item Value Reference Range Comments POC-GLUCOSE METER (BEAKER) 130 mg/dL 70-110 TESTED AT [facility] [address] [facility] (test ohrs=9743) [facility] [address] CBC W/PLT COUNT & AUTO [id number] 07:10:00 Test Item Value Reference Range Comments WHITE BLOOD CELL COUNT (BEAKER) (test dwtp=496) 10.6 K/ L 4.0-10.0 RED BLOOD CELL COUNT (BEAKER) (test uuku=984) 3.09 M/ L 4.20-5.80 HEMOGLOBIN (BEAKER) (test nech=169) 8.9 GM/DL 13.0-16.8 HEMATOCRIT (BEAKER) (test wavt=390) 27.8 % 40.0-50.0 MEAN CORPUSCULAR VOLUME (BEAKER) (test edbz=947) 89.9 fL 82.0-98.0 MEAN CORPUSCULAR HEMOGLOBIN (BEAKER) (test 28.9 pg 27.0-33.0 peqh=799) MEAN CORPUSCULAR HEMOGLOBIN CONC (BEAKER) (test 32.1 GM/DL 32.0-36.0 myzb=554) RED CELL DISTRIBUTION WIDTH (BEAKER) (test 17.6 % 10.3-14.2 onur=583) PLATELET COUNT (BEAKER) (test yufj=241) 79 K/CU MM 150-430 MEAN PLATELET VOLUME (BEAKER) (test krgk=327) 8.4 fL 6.5-10.5 NUCLEATED RED BLOOD CELLS (BEAKER) (test 0 /100 WBC 0-0 yldd=849) NEUTROPHILS RELATIVE PERCENT (BEAKER) (test 87 % yoch=492) LYMPHOCYTES RELATIVE PERCENT (BEAKER) (test 4 % latd=121) MONOCYTES RELATIVE PERCENT (BEAKER) (test 7 % iust=619) EOSINOPHILS RELATIVE PERCENT (BEAKER) (test 2 % rgpp=649) BASOPHILS RELATIVE PERCENT (BEAKER) (test 0 % kkeq=176) NEUTROPHILS ABSOLUTE COUNT (BEAKER) (test 9.20 K/ L 1.80-8.00 ihja=891) LYMPHOCYTES ABSOLUTE COUNT (BEAKER) (test 0.45 K/ L 1.48-4.50 alny=661) MONOCYTES ABSOLUTE COUNT (BEAKER) (test vupd=269) 0.70 K/ L 0.00-1.30 EOSINOPHILS ABSOLUTE COUNT (BEAKER) (test 0.25 K/ L 0.00-0.50 hjcy=194) BASOPHILS ABSOLUTE COUNT (BEAKER) (test iyko=476) 0.02 K/ L 0.00-0.20 0.00HEPATIC FUNCTION [id number] 06:52:00 Test Item Value Reference Range Comments TOTAL PROTEIN (BEAKER) (test zbzv=986) 6.6 gm/dL 6.0-8.3 ALBUMIN (BEAKER) (test qbtk=7890) 3.0 g/dL 3.5-5.0 BILIRUBIN TOTAL (BEAKER) (test bimh=389) 1.7 mg/dL 0.2-1.2 BILIRUBIN DIRECT (BEAKER) (test ctri=442) 0.8 mg/dL 0.1-0.5 ALKALINE PHOSPHATASE (BEAKER) (test pivp=636) 116 U/L 40-150 AST (SGOT) (BEAKER) (test xopv=081) 29 U/L 5-34 ALT (SGPT) (BEAKER) (test twke=832) 18 U/L 6-55 BASIC METABOLIC [id number] 06:52:00 Test Item Value Reference Range Comments SODIUM (BEAKER) (test 136 meq/L 136-145 mnqc=194) POTASSIUM (BEAKER) (test 3.7 meq/L 3.5-5.1 eqzb=905) CHLORIDE (BEAKER) (test 98 meq/L 98-107 rcbq=930) CO2 (BEAKER) (test 26 meq/L 22-29 yers=411) BLOOD UREA NITROGEN 52 mg/dL 7-21 (BEAKER) (test ptwv=421) CREATININE (BEAKER) (test 1.52 mg/dL 0.57-1.25 tewq=512) GLUCOSE RANDOM (BEAKER) 131 mg/dL 70-105 (test cxqt=173) CALCIUM (BEAKER) (test 8.8 mg/dL 8.4-10.2 mcwr=893) EGFR (BEAKER) (test 46 mL/min/1.73 sq m ESTIMATED GFR IS NOT szfx=9238) ACCURATE CREATININE CLEARANCE IN PREDICTING GLOMERULAR FILTRATION RATE. ESTIMATED GFR IS NOT APPLICABLE FOR DIALYSIS PATIENTS. URINALYSIS W/ [id number] 05:23:00 Test Item Value Reference Range Comments COLOR (BEAKER) (test qvjq=475) Yellow CLARITY (BEAKER) (test vtcg=661) Clear SPECIFIC GRAVITY UA (BEAKER) (test 1.011 1.001-1.035 krdi=246) PH UA (BEAKER) (test qryx=787) 5.0 5.0-8.0 PROTEIN UA (BEAKER) (test hvxd=849) Negative Negative GLUCOSE UA (BEAKER) (test mhtf=117) Negative Negative KETONES UA (BEAKER) (test yjwo=974) Negative Negative BILIRUBIN UA (BEAKER) (test cqmd=849) Negative Negative BLOOD UA (BEAKER) (test rhya=221) Negative Negative NITRITE UA (BEAKER) (test feqz=390) Negative Negative LEUKOCYTE ESTERASE UA (BEAKER) (test Negative Negative dbue=548) UROBILINOGEN UA (BEAKER) (test wrng=066) 0.2 mg/dL 0.2-1.0 RBC UA (BEAKER) (test rmog=559) 1 /HPF WBC UA (BEAKER) (test xhaw=248) < /HPF BACTERIA (BEAKER) (test mzac=649) Rare HYALINE CASTS (BEAKER) (test xhpx=182) 43 /LPF AMORPHOUS CRYSTALS (BEAKER) (test Rare qayl=6895) SOURCE(BEAKER) (test wgaf=9077) Urine, Clean Catch [id number] 20:58:00 Test Item Value Reference Range Comments PROTIME (BEAKER) (test rigf=077) 16.0 seconds 11.7-14.7 INR (BEAKER) (test pefn=817) 1.3 <=5.9 PARTIAL THROMBOPLASTIN TIME (BEAKER) (test 38.8 seconds 22.5-36.0 lhhk=495) RECOMMENDED COUMADIN/WARFARIN INR THERAPY RANGESSTANDARD DOSE: 2.0 - 3.0 Includes: PROPHYLAXIS forvenous thrombosis, systemic embolization; TREATMENT for venous thrombosis and/or pulmonary embolus.HIGH RISK: Target INR is 2.5-3.5 for patients with mechanical heart valves.COMPREHENSIVE METABOLIC [id number] 20:53:00 Test Item Value Reference Range Comments TOTAL PROTEIN (BEAKER) 8.3 gm/dL 6.0-8.3 (test qzeh=634) ALBUMIN (BEAKER) (test 3.8 g/dL 3.5-5.0 xbfy=1937) ALKALINE PHOSPHATASE 152 U/L 40-150 (BEAKER) (test rdvn=356) BILIRUBIN TOTAL (BEAKER) 1.7 mg/dL 0.2-1.2 (test aobb=121) SODIUM (BEAKER) (test 132 meq/L 136-145 bjxc=064) POTASSIUM (BEAKER) (test 3.8 meq/L 3.5-5.1 ciff=434) CHLORIDE (BEAKER) (test 93 meq/L 98-107 ejkn=963) CO2 (BEAKER) (test 29 meq/L 22-29 rjbt=962) BLOOD UREA NITROGEN 49 mg/dL 7-21 (BEAKER) (test qmfv=255) CREATININE (BEAKER) (test 1.94 mg/dL 0.57-1.25 ladz=786) GLUCOSE RANDOM (BEAKER) 256 mg/dL 70-105 (test zzvw=776) CALCIUM (BEAKER) (test 9.7 mg/dL 8.4-10.2 rpxp=491) AST (SGOT) (BEAKER) (test 29 U/L 5-34 ftlw=908) ALT (SGPT) (BEAKER) (test 19 U/L 6-55 kugn=504) EGFR (BEAKER) (test 35 mL/min/1.73 sq m ESTIMATED GFR IS NOT umtr=5143) ACCURATE CREATININE CLEARANCE IN PREDICTING GLOMERULAR FILTRATION RATE. ESTIMATED GFR IS NOT APPLICABLE FOR DIALYSIS PATIENTS. CBC W/PLT COUNT & AUTO [id number] 20:48:00 Test Item Value Reference Range Comments WHITE BLOOD CELL COUNT (BEAKER) (test lcrc=217) 10.7 K/ L 4.0-10.0 RED BLOOD CELL COUNT (BEAKER) (test jhuz=840) 3.72 M/ L 4.20-5.80 HEMOGLOBIN (BEAKER) (test leqf=982) 10.6 GM/DL 13.0-16.8 HEMATOCRIT (BEAKER) (test sepe=752) 33.2 % 40.0-50.0 MEAN CORPUSCULAR VOLUME (BEAKER) (test lder=556) 89.2 fL 82.0-98.0 MEAN CORPUSCULAR HEMOGLOBIN (BEAKER) (test 28.5 pg 27.0-33.0 mzqa=113) MEAN CORPUSCULAR HEMOGLOBIN CONC (BEAKER) (test 32.0 GM/DL 32.0-36.0 umso=071) RED CELL DISTRIBUTION WIDTH (BEAKER) (test 17.9 % 10.3-14.2 savy=555) PLATELET COUNT (BEAKER) (test xlrh=832) 92 K/CU MM 150-430 MEAN PLATELET VOLUME (BEAKER) (test uenq=655) 8.4 fL 6.5-10.5 NUCLEATED RED BLOOD CELLS (BEAKER) (test 0 /100 WBC 0-0 kqfo=674) NEUTROPHILS RELATIVE PERCENT (BEAKER) (test 91 % bvgd=786) LYMPHOCYTES RELATIVE PERCENT (BEAKER) (test 2 % ilax=335) MONOCYTES RELATIVE PERCENT (BEAKER) (test 5 % zuqh=821) EOSINOPHILS RELATIVE PERCENT (BEAKER) (test 1 % fdqm=680) BASOPHILS RELATIVE PERCENT (BEAKER) (test 1 % jbwo=045) NEUTROPHILS ABSOLUTE COUNT (BEAKER) (test 9.77 K/ L 1.80-8.00 fcyy=248) LYMPHOCYTES ABSOLUTE COUNT (BEAKER) (test 0.22 K/ L 1.48-4.50 ycgt=985) MONOCYTES ABSOLUTE COUNT (BEAKER) (test xovh=083) 0.59 K/ L 0.00-1.30 EOSINOPHILS ABSOLUTE COUNT (BEAKER) (test 0.06 K/ L 0.00-0.50 lsml=727) BASOPHILS ABSOLUTE COUNT (BEAKER) (test ymle=450) 0.09 K/ L 0.00-0.20 0.00POCT-GLUCOSE [id number] 12:02:00 Test Item Value Reference Range Comments POC-GLUCOSE METER (BEAKER) 260 mg/dL 70-110 TESTED AT [address] (test zroy=0942) [facility] [address] POCT-GLUCOSE [id number] 08:27:00 Test Item Value Reference Range Comments POC-GLUCOSE METER (BEAKER) 122 mg/dL 70-110 TESTED AT [address] (test jqat=5614) [facility] [id number] CBC W/PLT COUNT & AUTO [id number] 07:02:00 Test Item Value Reference Range Comments WHITE BLOOD CELL COUNT (BEAKER) (test hjjz=216) 4.9 K/ L 4.0-10.0 RED BLOOD CELL COUNT (BEAKER) (test fxev=669) 2.93 M/ L 4.20-5.80 HEMOGLOBIN (BEAKER) (test eysj=581) 8.4 GM/DL 13.0-16.8 HEMATOCRIT (BEAKER) (test fvaf=671) 26.0 % 40.0-50.0 MEAN CORPUSCULAR VOLUME (BEAKER) (test oddn=362) 88.7 fL 82.0-98.0 MEAN CORPUSCULAR HEMOGLOBIN (BEAKER) (test 28.7 pg 27.0-33.0 fusw=311) MEAN CORPUSCULAR HEMOGLOBIN CONC (BEAKER) (test 32.4 GM/DL 32.0-36.0 mazz=720) RED CELL DISTRIBUTION WIDTH (BEAKER) (test 17.4 % 10.3-14.2 bfon=639) PLATELET COUNT (BEAKER) (test ithv=552) 54 K/CU MM 150-430 MEAN PLATELET VOLUME (BEAKER) (test uutd=192) 9.5 fL 6.5-10.5 NUCLEATED RED BLOOD CELLS (BEAKER) (test 0 /100 WBC 0-0 efuy=231) NEUTROPHILS RELATIVE PERCENT (BEAKER) (test 74 % hjwp=015) LYMPHOCYTES RELATIVE PERCENT (BEAKER) (test 8 % sgjz=623) MONOCYTES RELATIVE PERCENT (BEAKER) (test 11 % onfv=566) EOSINOPHILS RELATIVE PERCENT (BEAKER) (test 6 % xtgt=285) BASOPHILS RELATIVE PERCENT (BEAKER) (test 1 % akqa=563) NEUTROPHILS ABSOLUTE COUNT (BEAKER) (test 3.63 K/ L 1.80-8.00 iouv=409) LYMPHOCYTES ABSOLUTE COUNT (BEAKER) (test 0.39 K/ L 1.48-4.50 ldbp=129) MONOCYTES ABSOLUTE COUNT (BEAKER) (test gcdy=682) 0.52 K/ L 0.00-1.30 EOSINOPHILS ABSOLUTE COUNT (BEAKER) (test 0.31 K/ L 0.00-0.50 yagj=861) BASOPHILS ABSOLUTE COUNT (BEAKER) (test hgrm=273) 0.03 K/ L 0.00-0.20 [id number] 06:01:00 Test Item Value Reference Range Comments PHOSPHORUS (BEAKER) (test zwyo=177) 2.7 mg/dL 2.3-4.7 [id number] 06:01:00 Test Item Value Reference Range Comments MAGNESIUM (BEAKER) (test hkiq=457) 2.0 mg/dL 1.6-2.6 BASIC METABOLIC [id number] 06:01:00 Test Item Value Reference Range Comments SODIUM (BEAKER) (test 133 meq/L 136-145 mfzh=883) POTASSIUM (BEAKER) (test 4.1 meq/L 3.5-5.1 bpfp=944) CHLORIDE (BEAKER) (test 102 meq/L 98-107 hwwv=084) CO2 (BEAKER) (test 22 meq/L 22-29 jcig=586) BLOOD UREA NITROGEN 28 mg/dL 7-21 (BEAKER) (test hmje=933) CREATININE (BEAKER) (test 1.17 mg/dL 0.57-1.25 gbge=818) GLUCOSE RANDOM (BEAKER) 101 mg/dL 70-105 (test ulff=281) CALCIUM (BEAKER) (test 8.7 mg/dL 8.4-10.2 bkaw=504) EGFR (BEAKER) (test 62 mL/min/1.73 sq m ESTIMATED GFR IS NOT utbu=2404) ACCURATE CREATININE CLEARANCE IN PREDICTING GLOMERULAR FILTRATION RATE. ESTIMATED GFR IS NOT APPLICABLE FOR DIALYSIS PATIENTS. B-TYPE NATRIURETIC FACTOR (BNP)2016-08-29 06:00:00 Test Item Value Reference Range Comments B-TYPE NATRIURETIC PEPTIDE (BEAKER) (test 253 pg/mL 0-100 iylq=661) CALCIUM, [id number] 05:58:00 Test Item Value Reference Range Comments CALCIUM IONIZED (BEAKER) (test zkwt=805) 1.04 mmol/L 1.12-1.27 PH, BLOOD (BEAKER) (test szxv=2671) 7.43 POCT-GLUCOSE [id number] 22:14:00 Test Item Value Reference Range Comments POC-GLUCOSE METER (BEAKER) 236 mg/dL 70-110 TESTED AT [facility] [address] [facility] (test vhii=2920) [facility] [address] POCT-GLUCOSE [id number] 16:54:00 Test Item Value Reference Range Comments POC-GLUCOSE METER (VTIALIY) 185 mg/dL 70-110 TESTED AT [facility] [address] [facility] (test brwd=7373) [facility] [address]
[2018-08-18] MEDS ORDERED: NA CHLORIDE 0.9% 500 ML ONE ×2 (16:25→18:07)
[2018-08-18] MEDS ORDERED: ONDANSETRON 4 MG/2 ML VIAL ONE ×2 (16:25→19:24)
[2018-08-18 16:28] LABS: Absolute Lymphocytes (CBC) 0.2 K/uL (0.7-4.9); Absolute Monocytes 0.4 K/uL (0.1-1.3); Basophils % 0.3 % (0-1.3); Hematocrit 26.2 % (39.6-49.0); Lymphocytes % 2.3 % (15.3-44.8); MPV 10.9 fL (7.6-11.3); Monocytes % 4.7 % (3.3-12.3); RBC Red Blood Cell Count 2.78 M/uL (4.33-5.43)
[2018-08-18 16:37] LABS: Protime INR 1.3
[2018-08-18 16:47] LABS: Albumin 2.4 g/dL (3.4-5.0); Bilirubin Direct 0.7 mg/dL (0-0.2); Bilirubin Total 1.6 mg/dL (0.2-1.0); Potassium 3.4 mmol/L (3.5-5.1); Protein, Total 6.5 g/dL (6.4-8.2)
[2018-08-18] MEDS ORDERED: PROMETHAZINE 25 MG/ML VIAL ONE (17:15)
--- NOTE | 2018-08-18 18:37 | RAD REPORT ---
EXAM DESCRIPTION: CT - Abdomen Pelvis Wo Contrast - 08/18/2018 6:18 pm CLINICAL HISTORY: Abdominal pain with vomiting COMPARISON: None TECHNIQUE: Computed axial tomography of the abdomen and pelvis was obtained. IV and oral contrast we re not requested. All CT scans are performed using dose optimization technique as appropriate and may include automated exposure control or mA/KV adjustment according to patient size. FINDINGS: The evaluation of solid organs, vessels and bowel is limited secondary to the lack of con trast administration. A cirrhotic liver is present. Portal venous areas seen. Gallstones are present without gallbladder wall thickening. The spleen is moderately enlarged. Varices are present within the abdomen. Pancreas, adrenals and kidneys appear grossly normal Small amount of ascites is present. Diffuse edema is present within the subcutaneous tissues. Multiple small bowel loops are mildly dilated. The wall of the transverse colon is thickened. A ventral hernia is present IMPRESSION: Portal venous air can be a sign of bowel ischemia. Cirrhosis Thickening of the wall of the transverse colon could be secondary to a colitis or hypoalbuminemia. Mild dilatation of small bowel could be secondary to an ileus, enteritis or partial mechanical obstru ction
--- NOTE | 2018-08-18 18:57 | ER ---
Nurse's Notes [facility] Name: Elfego Barros Jr Age: 68 yrs Sex: Male : 1950 Arrival Date: 08/18/2018 Time: 15:46 Bed 20 Private MD: Nicola Garrison V Diagnosis: Abdominal tenderness;Other cirrhosis of liver;Anemia, unspecified;Type 1 diabetes mellitus Presentation: 08/18 15:57 Presenting complaint: Patient states: i have cirrhosis but i have been nauseous for 2 tw2 days and i have been vomiting some brown stuff so i cant keep my medicine down, i had a BM yesterday but my specialist told me to come here to get check out. Transition of care: patient was not received from another setting of care. Onset of symptoms was August 18, 2018. Risk Assessment: Do you want to hurt yourself or someone else? Patient reports no desire to harm self or others. Initial Sepsis Screen: Does the patient meet any 2 criteria? No. Patient's initial sepsis screen is negative. Does the patient have a suspected source of infection? No. Patient's initial sepsis screen is negative. Care prior to arrival: None. 15:57 Method Of Arrival: Wheelchair tw2 15:57 Acuity: SCOT 3 tw2 Historical: - Allergies: 16:24 Codeine; tw2 16:24 bandaids; tw2 - Home Meds: 16:15 Lyrica Oral 1 cap [Active]; pramipexole 1 mg oral tab 1 tab twice a day [Active]; hb cholestipol 50mg 2-3x daily [Active]; furosemide 20 mg oral tab 1 tab once daily [Active]; spironolactone 25 mg Oral tab 1 tab once daily [Active]; Centrum oral oral [Active]; Iron CR Oral 325 mg daily [Active]; Prilosec 20 mg Oral cpDR 1 cap once daily [Active]; Xifaxan 550 mg oral tab 1 tab 2 times per day [Active]; lactulose oral 6 tps daily [Active]; Lantus 100 unit/mL Sub-Q soln [Active]; Humalog 100 unit/mL Sub-Q crtg [Active]; Citracal Oral [Active]; celdinir- 300mg 2x daily [Active]; doxycycline hyclate 100 mg Oral cap 1 cap 2 times per day [Active]; urosodiol- 300mg 2xdaily [Active]; Zofran (as hydrochloride) 8 mg Oral tab 1 tab for prn [Active]; Lidoderm 5 % Topical ptmd 1 patch once daily [Active]; nystatin Oral [Active]; fluocinolone 0.01 % Topical crea 2 times per day [Active]; clotrimazole 1 % Topical soln 2 times per day [Active]; - PMHx: 16:15 Diabetes - IDDM; GERD; hb 16:24 Hypertension; tw2 - PSHx: 16:24 hernia repair; tw2 - Immunization history:: Adult Immunizations. - Social history:: Smoking status: . - Ebola Screening: : Patient denies travel to an Ebola-affected area in the 21 days before illness onset. - Family history:: not pertinent. - Hospitalizations: : No recent hospitalization is reported. Screenin:59 Abuse screen: Denies threats or abuse. Nutritional screening: No deficits noted. tw2 Tuberculosis screening: No symptoms or risk factors identified. Fall Risk None identified. Assessment: 15:59 Reassessment: provider at bedside at this time. tw2 16:04 General: Appears in no apparent distress. Behavior is calm, cooperative, appropriate tw2 for age. Pain: Complains of pain in abdomen. Neuro: Level of Consciousness is awake, alert, obeys commands, Oriented to person, place, time, situation. 16:08 Cardiovascular: Denies chest pain, shortness of breath, Heart tones S1 S2 Patient's tw2 skin is warm and dry. Respiratory: Airway is patent Respiratory effort is even, unlabored, Respiratory pattern is regular, symmetrical, Breath sounds are clear bilaterally. GI: Abdomen is round distended, noted to have ascites, Bowel sounds present X 4 quads. Abd is rigid in right upper quadrant and left upper quadrant Reports nausea, vomiting, last BM yesterday. : EENT: Derm: Skin is dusky. Musculoskeletal: Range of motion: intact in all extremities. 16:40 Reassessment: Patient appears in no apparent distress at this time. No changes from tw2 previously documented assessment. Patient and/or family updated on plan of care and expected duration. Pain level reassessed. Patient is alert, oriented x 3, equal unlabored respirations, skin warm/dry/pink. 17:06 Reassessment: pt reports nauseousness and reports needing to have a BM at this time, tw2 provider notified, medicated for nausea as ordered. 17:27 Reassessment: Patient appears in no apparent distress at this time. No changes from tw2 previously documented assessment. Patient and/or family updated on plan of care and expected duration. Pain level reassessed. Patient is alert, oriented x 3, equal unlabored respirations, skin warm/dry/pink. 18:25 Reassessment: Patient appears in no apparent distress at this time. No changes from tw2 previously documented assessment. Patient and/or family updated on plan of care and expected duration. Pain level reassessed. Patient is alert, oriented x 3, equal unlabored respirations, skin warm/dry/pink. 18:49 Reassessment: Dr. Ham at bedside at this time. tw2 19:00 Reassessment: Patient appears in no apparent distress at this time. Patient and/or jb4 family updated on plan of care and expected duration. Pain level reassessed. Patient is alert, oriented x 3, equal unlabored respirations, skin warm/dry/pink. 20:00 Reassessment: Patient appears in no apparent distress at this time. Patient and/or jb4 family updated on plan of care and expected duration. Pain level reassessed. Patient is alert, oriented x 3, equal unlabored respirations, skin warm/dry/pink. 21:00 Reassessment: Patient appears in no apparent distress at this time. Patient and/or jb4 family updated on plan of care and expected duration. Pain level reassessed. Patient is alert, oriented x 3, equal unlabored respirations, skin warm/dry/pink. 22:00 Reassessment: Patient appears in no apparent distress at this time. Patient and/or jb4 family updated on plan of care and expected duration. Pain level reassessed. Patient is alert, oriented x 3, equal unlabored respirations, skin warm/dry/pink. Pt transported out with EMS. Vital Signs: 15:58 BP 145 / 64; Pulse 92; Resp 17; Temp 97.5(A); Pulse Ox 95% on R/A; tw2 16:39 BP 127 / 64; Pulse 85; Resp 14; Pulse Ox 100% on R/A; tw2 17:27 BP 144 / 63; Pulse 80; Resp 16; Pulse Ox 100% on R/A; tw2 18:25 BP 138 / 54; Pulse 81; Resp 17; Pulse Ox 100% on R/A; tw2 19:30 BP 135 / 45; Pulse 90; Resp 18; Pulse Ox 100% on R/A; jb4 20:30 BP 131 / 49; Pulse 75; Resp 16; Pulse Ox 100% on R/A; jb4 22:00 BP 137 / 66; Pulse 79; Resp 16; Pulse Ox 92% on R/A; jb4 ED Course: 15:46 Patient arrived in ED. sb2 15:46 Nicola Garrison MD is Private Physician. sb2 15:55 Trevor Agustin MD is Attending Physician. rn 15:57 Kathleen Escalera RN is Primary Nurse. tw2 15:57 Bed in low position. Call light in reach. Adult w/ patient. personnel monitor on. Pulse tw2 ox on. NIBP on. 15:58 Triage completed. tw2 15:59 Arm band placed on. tw2 16:10 Inserted saline lock: 20 gauge in right antecubital area, using aseptic technique. tw2 ,using aseptic technique. AlyssaJeremias Blood collected. 16:19 EKG done, by ammonia refrigeration technician. reviewed by Trevor Agustin MD. sm3 18:18 Abdomen In Process Unspecified. EDMS 18:38 Attending Physician role handed off by Trevor Agustin MD [facility] 18:38 Sudheer Ham MD is Attending Physician. [facility] 19:01 Report given to DIMA Waller - outstanding are labs and medicine ordered by Dr. Ham at tw2 1858. 19:04 Primary Nurse role handed off by Kathleen Escalera RN tw2 19:27 Roni Ritchie, DIMA is Primary Nurse. jb4 22:00 No provider procedures requiring assistance completed. Patient transferred, IV remains jb4 in place. Administered Medications: 16:15 Drug: NS 0.9% 500 ml Route: IV; Rate: bolus; Site: right antecubital; tw2 17:25 Follow up: Response: No adverse reaction; IV Status: Completed infusion; IV Intake: tw2 500ml 16:15 Drug: Zofran 4 mg Route: IVP; Site: right antecubital; tw2 17:05 Follow up: Response: No adverse reaction; Nausea unchanged; Nausea unchanged, after pt tw2 drank contrast for ct 17:20 Drug: Phenergan 12.5 mg Route: IVP; Site: right antecubital; tw2 18:47 Follow up: Response: No adverse reaction; Nausea is decreased tw2 18:00 Drug: NS 0.9% 500 ml Route: IV; Rate: bolus; Site: right antecubital; tw2 18:54 Follow up: Response: No adverse reaction; IV Status: Completed infusion; IV Intake: tw2 500ml 19:20 Drug: Zofran 4 mg Route: IVP; Site: right antecubital; jb4 20:00 Follow up: Response: No adverse reaction; Nausea is decreased jb4 19:22 Drug: fentaNYL (PF) 25 mcg Route: IVP; Site: right antecubital; jb4 20:00 Follow up: Response: No adverse reaction; Pain is decreased jb4 19:23 Drug: ProTONIX 40 mg Route: IVP; Site: right antecubital; jb4 20:00 Follow up: Response: No adverse reaction jb4 20:20 Drug: InvANZ 1 grams Route: IVPB; Infused Over: 30 mins; Site: right antecubital; jb4 20:50 Follow up: Response: No adverse reaction; IV Status: Completed infusion jb4 22:00 Drug: fentaNYL (PF) 25 mcg Route: IVP; Site: right antecubital; jb4 22:10 Follow up: Response: No adverse reaction; Pain is decreased jb4 22:38 Not Given (Duplicate Order): fentaNYL (PF) 25 mcg IVP once jb4 Intake: 17:25 IV: 500ml; Total: 500ml. tw2 18:54 IV: 500ml; Total: 1000ml. tw2 Outcome: 18:56 ER care complete, transfer ordered by MD. jones 22:00 Transferred to [facility]. jb4 22:00 Condition: stable 22:00 Discharge instructions given to patient, family, Instructed on the need for transfer, Demonstrated understanding of instructions. 22:40 Patient left the ED. jb4 Signatures: Dispatcher [employer] EDSudheer Carreon MD MD cha Nieto, Roman, MD MD rn Baxter, Heather, RN RN hb Wise, Tara, RN RN 2 Roni Ritchie RN RN jb4 Deepa Wood [facility] [place] 3 Corrections: (The following items were deleted from the chart) 16:09 16:04 Neuro: Level of Consciousness is awake, alert, obeys commands, Oriented to tw2 person, place, time, situation, tw2
--- NOTE | 2018-08-18 18:57 | EDPHYS ---
Physician Documentation [facility] Name: Elfego Barros Jr Age: 68 yrs Sex: Male : 1950 Arrival Date: 08/18/2018 Time: 15:46 Bed 20 Private MD: Nicola Garrison V ED Physician Sudheer Ham HPI: 08/18 16:26 This 68 yrs old Male presents to ER via Wheelchair with complaints of rn Constipation, Nausea/Vomiting. 16:26 The patient presents to the emergency department with nausea, vomiting, abdominal pain. rn Onset: The symptoms/episode began/occurred. 16:26 Onset: The symptoms/episode began/occurred 2 day(s) ago. Possible causes: unknown. The rn symptoms are aggravated by nothing. The symptoms are alleviated by nothing. Severity of symptoms: At their worst the symptoms were moderate in the emergency department the symptoms are unchanged. The patient has experienced a previous episode. Reports nausea/vomiting/constipation, for 2 days, reports stopped taking lactulose recently because was having good bowel movements, is passing gas but no BM for 2 days, feels bloated. Told by liver coordinator to come here for evaluation. No fever.. Historical: - Allergies: 16:24 Codeine; tw2 16:24 bandaids; tw2 - Home Meds: 16:15 Lyrica Oral 1 cap [Active]; pramipexole 1 mg oral tab 1 tab twice a day [Active]; hb cholestipol 50mg 2-3x daily [Active]; furosemide 20 mg oral tab 1 tab once daily [Active]; spironolactone 25 mg Oral tab 1 tab once daily [Active]; Centrum oral oral [Active]; Iron CR Oral 325 mg daily [Active]; Prilosec 20 mg Oral cpDR 1 cap once daily [Active]; Xifaxan 550 mg oral tab 1 tab 2 times per day [Active]; lactulose oral 6 tps daily [Active]; Lantus 100 unit/mL Sub-Q soln [Active]; Humalog 100 unit/mL Sub-Q crtg [Active]; Citracal Oral [Active]; celdinir- 300mg 2x daily [Active]; doxycycline hyclate 100 mg Oral cap 1 cap 2 times per day [Active]; urosodiol- 300mg 2xdaily [Active]; Zofran (as hydrochloride) 8 mg Oral tab 1 tab for prn [Active]; Lidoderm 5 % Topical ptmd 1 patch once daily [Active]; nystatin Oral [Active]; fluocinolone 0.01 % Topical crea 2 times per day [Active]; clotrimazole 1 % Topical soln 2 times per day [Active]; - PMHx: 16:15 Diabetes - IDDM; GERD; hb 16:24 Hypertension; tw2 - PSHx: 16:24 hernia repair; tw2 - Immunization history:: Adult Immunizations. - Social history:: Smoking status: . - Ebola Screening: : Patient denies travel to an Ebola-affected area in the 21 days before illness onset. - Family history:: not pertinent. - Hospitalizations: : No recent hospitalization is reported. ROS: 16:26 Constitutional: Negative for fever, chills, and weight loss, Eyes: Negative for injury, rn pain, redness, and discharge, Cardiovascular: Negative for chest pain, palpitations, and edema, Respiratory: Negative for shortness of breath, cough, wheezing, and pleuritic chest pain, Abdomen/GI: + abd pain/distension/nausea/vomiting Back: Negative for injury and pain, MS/Extremity: Negative for injury and deformity, Skin: Negative for injury, rash, and discoloration, Neuro: Negative for headache, weakness, numbness, tingling, and seizure. Exam: 16:26 Constitutional: Thin male, no acute distress, + obvious abd distension Head/Face: rn Normocephalic, atraumatic. Cardiovascular: Regular rate and rhythm, No pulse deficits. Respiratory: Lungs have equal breath sounds bilaterally, clear to auscultation. No increased work of breathing, no retractions or nasal flaring. Abdomen/GI: + firm upper abdomen with tympany and mild tenderness, no peritoneal signs Skin: Warm, dry, no evidence of cellulitis. MS/ Extremity: Pulses equal, no cyanosis. Neurovascular intact. Full, normal range of motion. Equal circumference. Neuro: Awake and alert, GCS 15, oriented to person, place, time, and situation. Cranial nerves II-XII grossly intact. Motor strength 5/5 in all extremities. Sensory grossly intact. Cerebellar exam normal. Vital Signs: 15:58 BP 145 / 64; Pulse 92; Resp 17; Temp 97.5(A); Pulse Ox 95% on R/A; tw2 16:39 BP 127 / 64; Pulse 85; Resp 14; Pulse Ox 100% on R/A; tw2 17:27 BP 144 / 63; Pulse 80; Resp 16; Pulse Ox 100% on R/A; tw2 18:25 BP 138 / 54; Pulse 81; Resp 17; Pulse Ox 100% on R/A; tw2 19:30 BP 135 / 45; Pulse 90; Resp 18; Pulse Ox 100% on R/A; jb4 20:30 BP 131 / 49; Pulse 75; Resp 16; Pulse Ox 100% on R/A; jb4 22:00 BP 137 / 66; Pulse 79; Resp 16; Pulse Ox 92% on R/A; jb4 MDM: 15:55 Patient medically screened. rn 19:00 Data reviewed: vital signs, nurses notes, lab test result(s), EKG, radiologic studies, [facility] CT scan, plain films. 08/18 16:11 Order name: Basic Metabolic Panel; Complete Time: 17:03 08/18 16:11 Order name: CBC with Diff rn 08/18 16:11 Order name: Hepatic Function; Complete Time: 17:03 04 16:11 Order name: Lipase; Complete Time: 17:03 04 16:11 Order name: PT-INR; Complete Time: 17:03 08/18 16:11 Order name: Ptt, Activated; Complete Time: 17:03 04 18:10 Order name: Abdomen ; Complete Time: 18:50 [facility] 08/18 19:39 Order name: Lactate; Complete Time: 20:15 [facility] 08/18 22:14 Order name: CBC Smear Scan EDSD 08/18 16:11 Order name: IV Saline Lock; Complete Time: 16:12 rn 08/18 16:11 Order name: Labs collected and sent; Complete Time: 16:12 rn 08/18 16:11 Order name: EKG; Complete Time: 16:12 rn 08/18 16:11 Order name: EKG - Nurse/Tech; Complete Time: 16:12 rn Administered Medications: 16:15 Drug: NS 0.9% 500 ml Route: IV; Rate: bolus; Site: right antecubital; tw2 17:25 Follow up: Response: No adverse reaction; IV Status: Completed infusion; IV Intake: tw2 500ml 16:15 Drug: Zofran 4 mg Route: IVP; Site: right antecubital; tw2 17:05 Follow up: Response: No adverse reaction; Nausea unchanged; Nausea unchanged, after pt tw2 drank contrast for ct 17:20 Drug: Phenergan 12.5 mg Route: IVP; Site: right antecubital; tw2 18:47 Follow up: Response: No adverse reaction; Nausea is decreased tw2 18:00 Drug: NS 0.9% 500 ml Route: IV; Rate: bolus; Site: right antecubital; tw2 18:54 Follow up: Response: No adverse reaction; IV Status: Completed infusion; IV Intake: tw2 500ml 19:20 Drug: Zofran 4 mg Route: IVP; Site: right antecubital; jb4 20:00 Follow up: Response: No adverse reaction; Nausea is decreased jb4 19:22 Drug: fentaNYL (PF) 25 mcg Route: IVP; Site: right antecubital; jb4 20:00 Follow up: Response: No adverse reaction; Pain is decreased jb4 19:23 Drug: ProTONIX 40 mg Route: IVP; Site: right antecubital; jb4 20:00 Follow up: Response: No adverse reaction jb4 20:20 Drug: InvANZ 1 grams Route: IVPB; Infused Over: 30 mins; Site: right antecubital; jb4 20:50 Follow up: Response: No adverse reaction; IV Status: Completed infusion jb4 22:00 Drug: fentaNYL (PF) 25 mcg Route: IVP; Site: right antecubital; jb4 22:10 Follow up: Response: No adverse reaction; Pain is decreased jb4 22:38 Not Given (Duplicate Order): fentaNYL (PF) 25 mcg IVP once jb4 Disposition: 08/18/18 18:56 Transfer ordered to [facility]. Diagnosis are Abdominal tenderness, Other cirrhosis of liver, Anemia, unspecified, Type 1 diabetes mellitus. - Reason for transfer: Higher level of care. - [facility] [place], cirrhosis, sbo. - Condition is Fair. - Problem is new. - Symptoms are unchanged. Signatures: Dispatcher [employer] EDSudheer Carreon MD MD cha Nieto, Roman, MD MD rn Baxter, Heather, RN RN hb Wise, Tara, RN RN tw2 Roni Ritchie, RN RN jb4 Corrections: (The following items were deleted from the chart) 18:10 16:12 Abdomen Pelvis W Con+CT.RAD.BRZ ordered. EDMS EDMS 22:40 18:56 08/18/2018 18:56 Transfer ordered to [facility]. Diagnosis is jb4 Abdominal tenderness; Other cirrhosis of liver; Anemia, unspecified; Type 1 diabetes mellitus. Reason for transfer: Higher level of care. [facility] [place], cirrhosis, sbo. Condition is Fair. Problem is new. Symptoms are unchanged. karen
[2018-08-18] MEDS ORDERED: FENTANYL CITR 100 MCG/2 ML ONE (19:23)
[2018-08-18] MEDS ORDERED: PANTOPRAZOLE 40 MG INJ ONE (19:24)
[2018-08-18] MEDS ORDERED: ERTAPENEM SODIUM 1 GM VIAL ONE (19:59)
[2018-08-18] MEDS ORDERED: NA CHLORIDE 0.9% 100 ML IV ONE (20:19)
[2018-08-18 22:12] LABS: Blood Morphology Comment NOTED (NOT SEEN); Platelet Estimate DECR; Urine White Blood Cell Casts OK
[2018-08-18 22:13] LABS: Anisocytosis 1+; Hypochromasia 1+; Poikilocytosis 1+; Polychromasia 1+
--- NOTE | 2018-08-19 07:39 | EKG ---
Test Date: 2018-07-18 Test Time: 16:18:37 [employer]ot[employer] Operator: TWIN MEASUREMENT RESULTS: Intervals: Rate: 89 MD: 194 QRSD: 120 QT: 402 QTc: 489 [place]: P: 31 MD: 194 QRS: -37 T: 70 INTERPRETIVE STATEMENTS: Normal sinus rhythm Left axis deviation Left ventricular hypertrophy with QRS widening Abnormal ECG Compared to ECG 10/29/1999 04:42:00 Left-axis deviation now present Left ventricular hypertrophy now present Electronically Signed On 08-19-18 07:30:25 FISHING BOAT CAPTAIN by Ehsan Jones
== END 2018-08-18 22:40 | disposition short-term general hospital (02) ==
LOC: ER 15:45
DX: K74.69 Other cirrhosis of liver (principal); D64.9 Anemia, unspecified; E10.9 Type 1 diabetes mellitus without complications; I10 Essential (primary) hypertension; Z79.4 Long term (current) use of insulin; Z88.5 Allergy status to narcotic agent; Z91.048 Other nonmedicinal substance allergy status
CPT/HCPCS: 36415; 74176; 80048; 80076; 83605; 83690; 85025; 85610; 85730; 93005; 96361; 96365; 96375; 99285; C9113; J1335; J2405 ×2; J2550; J3010

== ENCOUNTER 2018-09-28 11:38 | Emergency (ER) | payer OTHER, BC ==
--- OUTSIDE RECORDS SUMMARY | 2018-09-28 11:44 | XMS REPORT | Clinical Summary ---
:1950 Author Organization [facility] Address [address] [place] [address] Care Team Providers Name Role Phone Jasmeet Valle MD Primary Care Provider Unavailable Allergies Active Allergy Reactions Severity Noted Date Comments Adhesive Tape-Silicones Other (See Comments) 07/04/2016 Skin tears Codeine GI Intolerance 07/04/2016 nausea Pantoprazole Rash Low 07/04/2016 [id number] Reductase Anaphylaxis High 07/04/2016 seizures Inhibitors Medications [...] Comments COLON CANCER SCREENING 1999 SHINGLES VACCINES (#1) 1999 65+ PNEUMOCOCCAL VACCINE (1 of 2 - PCV13) 2014 PNEUMOCOCCAL POLYSACCHARIDE VACCINE AGE 65 AND OVER 2014 INFLUENZA VACCINE 02/12/2018 Results Not on fileafter 09/27/2017 Insurance Payer Benefit Plan / Group Subscriber ID Type Phone Address MEDICARE MEDICARE PART A AND B xxxxxxxxxx Medicare [place], [place] BCBS BCBS PAR/TRAD PLAN xxxxxxxxxxxx Indemnity Advance Directives Patient has advance care planning documents on file. For more information, please contact:Jayme Hadd[address] [place] [address]
--- OUTSIDE RECORDS SUMMARY | 2018-09-28 11:55 | XMS REPORT ---
:1950 [facility] Address [address] [place] [address] Dr. Vazquez [address] [place] [id number] Care Team Providers Name Role Phone GEOFF SOLIMAN Unavailable Unavailable SHAMSEE, SHARON-DAVID MOSS-AHMED Unavailable Unavailable SABRINA MARX Unavailable Unavailable MAGDY COTTON Unavailable Unavailable GIN CARMICHAEL Unavailable Unavailable NAOMI RESENDEZ Unavailable Unavailable ROCKY OLIVO Unavailable Unavailable AUGIE HUIZAR Unavailable Unavailable HIMA MAGAÑA Unavailable Unavailable ANDRES AMAYA Unavailable Unavailable LAZARUS RODRÍGUEZ Unavailable Unavailable SMITH SAENZ Unavailable Unavailable INNA DENNIS Unavailable Unavailable ACRLOS, STUART Unavailable Unavailable SKEFOS, CHRYSTAN TANMAY Unavailable Unavailable Problems This patient has no known problems. Allergies, Adverse Reactions, Alerts This patient has no known allergies or adverse reactions. Medications This patient has no known medications. Results Test Description Test Time Test Comments Text Results Atomic Results Result Comments BLOOD CULTURE 2018-09-17 01:01:00 Test Item Value Reference Range Comments CULTURE (BEAKER) (test wypt=8294) No growth in 5 days BLOOD [id number] 01:01:00 Test Item Value Reference Range Comments CULTURE (BEAKER) (test cmfj=8659) No growth in 5 days POCT-GLUCOSE [id number] 12:25:00 Test Item Value Reference Range Comments POC-GLUCOSE METER (BEAKER) 213 mg/dL 70-110 TESTED AT [facility] [address] [facility] (test pnxm=5438) [facility] [address] U/S, ABDOMINAL, [id number] 09:37:00Reason for exam:->assess PV patencyFINAL REPORT Ultrasound abdomen History: Abdominal pain and distention Comparison: 08/20/2018 Technique: Real-time ultrasound of the abdomen was performed Findings: The liver demonstrates cirrhotic morphology. Hepatic length is 10.5 cm. No mass lesion is visualized. The gallbladder contains stones with nonspecific gallbladder distention and questionable gallbladder wall thickening. No pericholecystic fluid is seen. No sonographic Mercer sign was elicited. The common bile duct is normal in caliber , measuring 6 mm. The main portal vein is normal in caliber, measuring 11 mm. There is portal vein thrombosis. The spleen is normal in size, measuring 17.9 cm in length. The pancreas is obscured by bowel gas. The visualized portion appears unremarkable. No ascites or pleural effusions. The right kidney measures 9.1 cm in length and the left kidney measures 11.8 cm in length. No hydronephrosis, mass lesion or stones are visualized. The abdominal aorta and IVC appear unremarkable in their visualized portions. Impression: 1. Cirrhosis and splenomegaly.2. Cholelithiasis with nonspecific gallbladder distention and questionable wall thickening.3. Portal vein thrombosis. Signed: Bret Marquis MDReport Verified Date/Time: 09/13/2018 09:37:34 Reading Location: [address] Consult Reading Room POCT-GLUCOSE [id number] 08:38:00 Test Item Value Reference Range Comments POC-GLUCOSE METER (BEAKER) 213 mg/dL 70-110 TESTED AT [facility] [address] [facility] (test hkum=7519) [facility] [address] CALCIUM, [id number] 07:21:00 Test Item Value Reference Range Comments CALCIUM IONIZED (BEAKER) (test ywro=553) 1.05 mmol/L 1.12-1.27 PH, BLOOD (BEAKER) (test xmtv=7547) 7.47 [id number] 07:20:00 Test Item Value Reference Range Comments PHOSPHORUS (BEAKER) (test mbbg=550) 3.0 mg/dL 2.3-4.7 [id number] 07:20:00 Test Item Value Reference Range Comments MAGNESIUM (BEAKER) (test wupu=231) 2.0 mg/dL 1.6-2.6 COMPREHENSIVE METABOLIC [id number] 07:20:00 Test Item Value Reference Range Comments TOTAL PROTEIN (BEAKER) 6.5 gm/dL 6.0-8.3 (test hiyg=302) ALBUMIN (BEAKER) (test 3.3 g/dL 3.5-5.0 igtn=5769) ALKALINE PHOSPHATASE 124 U/L 40-150 (BEAKER) (test pley=917) BILIRUBIN TOTAL (BEAKER) 2.6 mg/dL 0.2-1.2 (test pfua=471) SODIUM (BEAKER) (test 134 meq/L 136-145 dtaa=175) POTASSIUM (BEAKER) (test 3.6 meq/L 3.5-5.1 xdvc=588) CHLORIDE (BEAKER) (test 102 meq/L 98-107 zlkh=841) CO2 (BEAKER) (test 22 meq/L 22-29 gdgz=817) BLOOD UREA NITROGEN 43 mg/dL 7-21 (BEAKER) (test mnms=118) CREATININE (BEAKER) (test 1.38 mg/dL 0.57-1.25 swxl=941) GLUCOSE RANDOM (BEAKER) 190 mg/dL 70-105 (test ngjs=314) CALCIUM (BEAKER) (test 9.0 mg/dL 8.4-10.2 mqff=590) AST (SGOT) (BEAKER) (test 39 U/L 5-34 giga=565) ALT (SGPT) (BEAKER) (test 24 U/L 6-55 jzeg=609) EGFR (BEAKER) (test 51 mL/min/1.73 sq m ESTIMATED GFR IS NOT ykdq=8625) ACCURATE CREATININE CLEARANCE IN PREDICTING GLOMERULAR FILTRATION RATE. ESTIMATED GFR IS NOT APPLICABLE FOR DIALYSIS PATIENTS. Specimen slightly ictericPROTHROMBIN [id number] 07:12:00 Test Item Value Reference Range Comments PROTIME (BEAKER) (test shbz=633) 17.5 seconds 11.7-14.7 INR (BEAKER) (test hywi=073) 1.4 <=5.9 RECOMMENDED COUMADIN/WARFARIN INR THERAPY RANGESSTANDARD DOSE: 2.0 - 3.0 Includes: PROPHYLAXIS forvenous thrombosis, systemic embolization; TREATMENT for venous thrombosis and/or pulmonary embolus.HIGH RISK: Target INR is 2.5-3.5 for patients with mechanical heart valves.CBC W/PLT COUNT & AUTO [id number] 06:58:00 Test Item Value Reference Range Comments WHITE BLOOD CELL COUNT (BEAKER) (test vrrh=598) 4.0 K/ L 3.5-10.5 RED BLOOD CELL COUNT (BEAKER) (test blsi=217) 2.48 M/ L 4.63-6.08 HEMOGLOBIN (BEAKER) (test luet=168) 7.6 GM/DL 13.7-17.5 HEMATOCRIT (BEAKER) (test oygt=884) 24.3 % 40.1-51.0 MEAN CORPUSCULAR VOLUME (BEAKER) (test ynxd=929) 98.0 fL 79.0-92.2 MEAN CORPUSCULAR HEMOGLOBIN (BEAKER) (test 30.6 pg 25.7-32.2 lwep=939) MEAN CORPUSCULAR HEMOGLOBIN CONC (BEAKER) (test 31.3 GM/DL 32.3-36.5 qxht=611) RED CELL DISTRIBUTION WIDTH (BEAKER) (test 17.7 % 11.6-14.4 rnhk=939) PLATELET COUNT (BEAKER) (test naxi=408) 60 K/CU MM 150-450 MEAN PLATELET VOLUME (BEAKER) (test ietd=208) 11.7 fL 9.4-12.4 NUCLEATED RED BLOOD CELLS (BEAKER) (test 0 /100 WBC 0-0 kpey=758) NEUTROPHILS RELATIVE PERCENT (BEAKER) (test 68 % kunu=817) LYMPHOCYTES RELATIVE PERCENT (BEAKER) (test 11 % ffxv=081) MONOCYTES RELATIVE PERCENT (BEAKER) (test 12 % npzn=507) EOSINOPHILS RELATIVE PERCENT (BEAKER) (test 9 % ddlj=043) BASOPHILS RELATIVE PERCENT (BEAKER) (test 0 % uanz=078) NEUTROPHILS ABSOLUTE COUNT (BEAKER) (test 2.73 K/ L 1.78-5.38 gsdf=499) LYMPHOCYTES ABSOLUTE COUNT (BEAKER) (test 0.43 K/ L 1.32-3.57 fldt=924) MONOCYTES ABSOLUTE COUNT (BEAKER) (test cujv=158) 0.48 K/ L 0.30-0.82 EOSINOPHILS ABSOLUTE COUNT (BEAKER) (test 0.35 K/ L 0.04-0.54 fxvx=510) BASOPHILS ABSOLUTE COUNT (BEAKER) (test vspf=286) 0.01 K/ L 0.01-0.08 IMMATURE GRANULOCYTES-RELATIVE PERCENT (BEAKER) 0 % 0-1 (test afkj=3728) POCT-GLUCOSE [id number] 22:44:00 Test Item Value Reference Range Comments POC-GLUCOSE METER (BEAKER) 219 mg/dL 70-110 TESTED AT [address] (test nogz=0042) [place] [address] C. DIFFICILE GDH [id number] 20:10:00 Test Item Value Reference Range Comments CDT TOXIN (test Negative Negative mgpy=[id number]) CDT GDH ANTIGEN (test Negative Negative No indication of Clostridium pnmv=[id number]) difficile infection and no colonization. Discontinue enteric isolation and therapy. Testing performed by [email or web address] Rapid Cassette Assay. For GDH, published sensitivity of the assay is 98.7% compared to cytotoxicity testing. For Toxin AB, published sensitivity is 87.8% and specificity 99.4% compared to cytotoxicity testing.Verification of kit performance was done by the [facility] prior to clinical use.POCT-GLUCOSE [id number] 18:04:00 Test Item Value Reference Range Comments POC-GLUCOSE METER (BEAKER) 233 mg/dL 70-110 TESTED AT [address] (test mvvv=2169) [place] [address] EOSINOPHIL SMEAR, [id number] 15:30:00 Test Item Value Reference Range Comments EOSINOPHIL SMEAR, URINE (BEAKER) Rare EOS=less than 5% WBCs No EOS seen (test qqxf=3988) seen are EOS POCT-GLUCOSE [id number] 15:26:00 Test Item Value Reference Range Comments POC-GLUCOSE METER (BEAKER) 321 mg/dL 70-110 TESTED AT [address] (test nztz=5541) [place] [address] CREATININE, RANDOM [id number] 15:00:00 Test Item Value Reference Range Comments CREATININE URINE (BEAKER) (test pple=147) 45.4 mg/dL Reference Range: No NormalsPROTEIN, RANDOM [id number] 15:00:00 Test Item Value Reference Range Comments PROTEIN, URINE (BEAKER) (test slsl=7465) 12 mg/dL 0-14 SODIUM, RANDOM [id number] 15:00:00 Test Item Value Reference Range Comments SODIUM URINE (BEAKER) (test dkwp=185) 35 meq/L Reference Range: No NormalsOSMOLALITY, [id number] 14:44:00 Test Item Value Reference Range Comments OSMOLALITY URINE (BEAKER) (test cfxq=428) 357 mOsm/kg 40-1,400 URINALYSIS WITH MICROSCOPIC IF [id number] 14:41:00 Test Item Value Reference Range Comments COLOR (BEAKER) (test zhvd=122) Yellow CLARITY (BEAKER) (test kxst=409) Clear SPECIFIC GRAVITY UA (BEAKER) (test njbq=332) 1.009 1.001-1.035 PH UA (BEAKER) (test pizs=785) 5.5 5.0-8.0 PROTEIN UA (BEAKER) (test edlf=450) Negative Negative GLUCOSE UA (BEAKER) (test lkvr=688) Negative Negative KETONES UA (BEAKER) (test fmiu=289) Negative Negative BILIRUBIN UA (BEAKER) (test uolb=564) Negative Negative BLOOD UA (BEAKER) (test xpmx=274) Moderate Negative NITRITE UA (BEAKER) (test ijon=814) Negative Negative LEUKOCYTE ESTERASE UA (BEAKER) (test qecn=966) Negative Negative UROBILINOGEN UA (BEAKER) (test zwqp=250) 0.2 mg/dL 0.2-1.0 SOURCE(BEAKER) (test ebbj=6582) URINALYSIS [id number] 14:41:00 Test Item Value Reference Range Comments RBC UA (BEAKER) (test zdup=724) 10 /HPF WBC UA (BEAKER) (test cjud=269) 2 /HPF SQUAMOUS EPITHELIAL (BEAKER) (test gxrm=835) < /HPF CRYSTALS, URINE (BEAKER) (test gsfo=9785) Rare URINALYSIS W/ REFLEX URINE [id number] 14:41:00 Test Item Value Reference Range Comments COLOR (BEAKER) (test vtdh=881) Yellow CLARITY (BEAKER) (test ytvw=880) Clear SPECIFIC GRAVITY UA (BEAKER) (test ajao=533) 1.009 1.001-1.035 PH UA (BEAKER) (test svjx=171) 5.5 5.0-8.0 PROTEIN UA (BEAKER) (test rzce=788) Negative Negative GLUCOSE UA (BEAKER) (test pzcy=719) Negative Negative KETONES UA (BEAKER) (test cqdk=571) Negative Negative BILIRUBIN UA (BEAKER) (test dqye=136) Negative Negative BLOOD UA (BEAKER) (test gwmo=129) Moderate Negative NITRITE UA (BEAKER) (test mykm=128) Negative Negative LEUKOCYTE ESTERASE UA (BEAKER) (test riet=517) Negative Negative UROBILINOGEN UA (BEAKER) (test nnsg=668) 0.2 mg/dL 0.2-1.0 RBC UA (BEAKER) (test nsdb=450) 10 /HPF WBC UA (BEAKER) (test rgxl=033) 2 /HPF SQUAMOUS EPITHELIAL (BEAKER) (test ptno=051) < /HPF CRYSTALS, URINE (BEAKER) (test jyah=7917) Rare SOURCE(BEAKER) (test eiln=2615) HEMOGLOBIN [id number] 13:57:00 Test Item Value Reference Range Comments HEMOGLOBIN A1C (BEAKER) (test jtae=715) 6.1 % 4.3-6.1 PROTHROMBIN [id number] 09:42:00 Test Item Value Reference Range Comments PROTIME (BEAKER) (test phdx=231) 17.9 seconds 11.7-14.7 INR (BEAKER) (test rkyc=141) 1.5 <=5.9 RECOMMENDED COUMADIN/WARFARIN INR THERAPY RANGESSTANDARD DOSE: 2.0 - 3.0 Includes: PROPHYLAXIS forvenous thrombosis, systemic embolization; TREATMENT for venous thrombosis and/or pulmonary embolus.HIGH RISK: Target INR is 2.5-3.5 for patients with mechanical heart valves.[id number] 09:34:00 Test Item Value Reference Range Comments MAGNESIUM (BEAKER) (test nfse=139) 2.2 mg/dL 1.6-2.6 COMPREHENSIVE METABOLIC [id number] 09:34:00 Test Item Value Reference Range Comments TOTAL PROTEIN (BEAKER) 6.3 gm/dL 6.0-8.3 (test sacl=011) ALBUMIN (BEAKER) (test 3.2 g/dL 3.5-5.0 huju=4630) ALKALINE PHOSPHATASE 121 U/L 40-150 (BEAKER) (test gewf=708) BILIRUBIN TOTAL (BEAKER) 2.3 mg/dL 0.2-1.2 (test vepc=269) SODIUM (BEAKER) (test 139 meq/L 136-145 yjqz=116) POTASSIUM (BEAKER) (test 3.5 meq/L 3.5-5.1 zxql=255) CHLORIDE (BEAKER) (test 104 meq/L 98-107 yggb=765) CO2 (BEAKER) (test 26 meq/L 22-29 dzmm=844) BLOOD UREA NITROGEN 50 mg/dL 7-21 (BEAKER) (test tkaa=124) CREATININE (BEAKER) (test 1.33 mg/dL 0.57-1.25 kaix=013) GLUCOSE RANDOM (BEAKER) 225 mg/dL 70-105 (test irxy=671) CALCIUM (BEAKER) (test 8.9 mg/dL 8.4-10.2 zits=195) AST (SGOT) (BEAKER) (test 35 U/L 5-34 zrki=835) ALT (SGPT) (BEAKER) (test 26 U/L 6-55 xkgh=074) EGFR (BEAKER) (test 53 mL/min/1.73 sq m ESTIMATED GFR IS NOT xbry=7848) ACCURATE CREATININE CLEARANCE IN PREDICTING GLOMERULAR FILTRATION RATE. ESTIMATED GFR IS NOT APPLICABLE FOR DIALYSIS PATIENTS. Specimen slightly ictericCBC W/PLT COUNT & AUTO [id number] 09:24 :00 Test Item Value Reference Range Comments WHITE BLOOD CELL COUNT (BEAKER) (test bmiz=925) 4.5 K/ L 3.5-10.5 RED BLOOD CELL COUNT (BEAKER) (test zihy=643) 2.56 M/ L 4.63-6.08 HEMOGLOBIN (BEAKER) (test conc=787) 7.9 GM/DL 13.7-17.5 HEMATOCRIT (BEAKER) (test mlmp=480) 25.1 % 40.1-51.0 MEAN CORPUSCULAR VOLUME (BEAKER) (test cueu=872) 98.0 fL 79.0-92.2 MEAN CORPUSCULAR HEMOGLOBIN (BEAKER) (test 30.9 pg 25.7-32.2 lhrm=954) MEAN CORPUSCULAR HEMOGLOBIN CONC (BEAKER) (test 31.5 GM/DL 32.3-36.5 aoyv=718) RED CELL DISTRIBUTION WIDTH (BEAKER) (test 17.8 % 11.6-14.4 exiv=720) PLATELET COUNT (BEAKER) (test pjgs=911) 57 K/CU MM 150-450 MEAN PLATELET VOLUME (BEAKER) (test lrgm=611) 11.8 fL 9.4-12.4 NUCLEATED RED BLOOD CELLS (BEAKER) (test 0 /100 WBC 0-0 fnkf=471) NEUTROPHILS RELATIVE PERCENT (BEAKER) (test 75 % wqwf=020) LYMPHOCYTES RELATIVE PERCENT (BEAKER) (test 8 % hjiv=128) MONOCYTES RELATIVE PERCENT (BEAKER) (test 9 % zzjn=449) EOSINOPHILS RELATIVE PERCENT (BEAKER) (test 6 % khiy=130) BASOPHILS RELATIVE PERCENT (BEAKER) (test 1 % pwwj=705) NEUTROPHILS ABSOLUTE COUNT (BEAKER) (test 3.40 K/ L 1.78-5.38 stac=358) LYMPHOCYTES ABSOLUTE COUNT (BEAKER) (test 0.38 K/ L 1.32-3.57 klqc=941) MONOCYTES ABSOLUTE COUNT (BEAKER) (test yjct=104) 0.40 K/ L 0.30-0.82 EOSINOPHILS ABSOLUTE COUNT (BEAKER) (test 0.28 K/ L 0.04-0.54 cytb=544) BASOPHILS ABSOLUTE COUNT (BEAKER) (test gqte=052) 0.03 K/ L 0.01-0.08 IMMATURE GRANULOCYTES-RELATIVE PERCENT (BEAKER) 1 % 0-1 (test kvgd=5564) POCT-GLUCOSE [id number] 08:47:00 Test Item Value Reference Range Comments POC-GLUCOSE METER (BEAKER) 165 mg/dL 70-110 TESTED AT [address] (test kipz=8486) [place] [address] POCT-GLUCOSE [id number] 08:23:00 Test Item Value Reference Range Comments POC-GLUCOSE METER (BEAKER) 198 mg/dL 70-110 TESTED AT [address] (test fahw=9439) [place] [id number] POCT-GLUCOSE [id number] 00:40:00 Test Item Value Reference Range Comments POC-GLUCOSE METER (BEAKER) 196 mg/dL 70-110 TESTED AT [address] (test tzrn=5426) [place] [id number] CT, BRAIN, WITHOUT [id number] 17:11:00Reason for exam:->GENERAL ILLNESSWhat is the patient's sedation requirement?->No SedationFINAL REPORT CT, BRAIN, WITHOUT CONTRAST INDICATION: Confusion/ delirium, altered LOC, unexplainedGENERAL ILLNESS TECHNIQUE: Noncontrast axial imaging was obtained from the vertexto the skull base. Axial images were reconstructed using a bone algorithm. DOSE REDUCTION: Dose modulation, iterative reconstruction, and/or weight-based adjustment of the mA/kV was utilized to reduce the radiation dose to as low as reasonably achievable. COMPARISON: May 29, 2018 FINDINGS: Cerebral parenchyma: Stable global cerebral volume loss. No disruption of the mckay-white distinction. No parenchymal hemorrhage.Midline structures: Normally positioned.Cerebellum and brainstem: Commensurate volume loss.Ventricles: Normal volume.Extra-axial spaces : Unremarkable. Calvarium and skull base: Intact.Paranasal sinuses and mastoid air cells: Visible chambers are clear.Orbital contents: Included portions unremarkable. Additional findings: None. IMPRESSION: Chronic involutional changes without acute intracranial abnormality. If there is persistent clinical concern for intracranial pathology, MR examination is recommended for further characterization. Signed: JR Wong Robert MDReport Verified Date/Time: 09/11/2018 17:11:57 Reading Location: [facility] Radiology Reading Room TROPONIN [id number] 14:35:00 Test Item Value Reference Range Comments TROPONIN I (BEAKER) (test gdig=978) 0.02 ng/mL 0.00-0.03 Troponin I (TnI) levels must [...] failure, acidosis, acute neurological disease, and persistent tachyarrhythmia.[id number] 14:29:00 Test Item Value Reference Range Comments MAGNESIUM (BEAKER) (test tmgn=582) 2.1 mg/dL 1.6-2.6 COMPREHENSIVE METABOLIC [id number] 14:29:00 Test Item Value Reference Range Comments TOTAL PROTEIN (BEAKER) 6.7 gm/dL 6.0-8.3 (test upea=694) ALBUMIN (BEAKER) (test 3.5 g/dL 3.5-5.0 dxrv=8987) ALKALINE PHOSPHATASE 144 U/L 40-150 (BEAKER) (test nbve=887) BILIRUBIN TOTAL (BEAKER) 2.2 mg/dL 0.2-1.2 (test zqir=435) SODIUM (BEAKER) (test 140 meq/L 136-145 wuec=360) POTASSIUM (BEAKER) (test 3.6 meq/L 3.5-5.1 pmdl=545) CHLORIDE (BEAKER) (test 103 meq/L 98-107 oesy=406) CO2 (BEAKER) (test 27 meq/L 22-29 tylx=412) BLOOD UREA NITROGEN 54 mg/dL 7-21 (BEAKER) (test qrbe=717) CREATININE (BEAKER) (test 1.50 mg/dL 0.57-1.25 hjlk=244) GLUCOSE RANDOM (BEAKER) 183 mg/dL 70-105 (test onlp=046) CALCIUM (BEAKER) (test 9.6 mg/dL 8.4-10.2 xzld=243) AST (SGOT) (BEAKER) (test 36 U/L 5-34 sxvl=952) ALT (SGPT) (BEAKER) (test 25 U/L 6-55 jxqu=799) EGFR (BEAKER) (test 46 mL/min/1.73 sq m ESTIMATED GFR IS NOT jyzw=1622) ACCURATE CREATININE CLEARANCE IN PREDICTING GLOMERULAR FILTRATION RATE. ESTIMATED GFR IS NOT APPLICABLE FOR DIALYSIS PATIENTS. Specimen slightly [id number] 14:20:00 Test Item Value Reference Range Comments AMMONIA (BEAKER) (test oyme=193) 27 mol/L 18-72 [id number] 14:19:00 Test Item Value Reference Range Comments PROTIME (BEAKER) (test nvzm=479) 16.8 seconds 11.7-14.7 INR (BEAKER) (test zhmr=747) 1.4 <=5.9 PARTIAL THROMBOPLASTIN TIME (BEAKER) (test 39.3 seconds 22.5-36.0 nytm=516) RECOMMENDED COUMADIN/WARFARIN INR THERAPY RANGESSTANDARD DOSE: 2.0 - 3.0 Includes: PROPHYLAXIS forvenous thrombosis, systemic embolization; TREATMENT for venous thrombosis and/or pulmonary embolus.HIGH RISK: Target INR is 2.5-3.5 for patients with mechanical heart valves.CBC W/PLT COUNT & AUTO [id number] 14:12:00 Test Item Value Reference Range Comments WHITE BLOOD CELL COUNT (BEAKER) (test pftf=478) 4.6 K/ L 3.5-10.5 RED BLOOD CELL COUNT (BEAKER) (test mrjz=717) 2.29 M/ L 4.63-6.08 HEMOGLOBIN (BEAKER) (test hrig=526) 7.0 GM/DL 13.7-17.5 HEMATOCRIT (BEAKER) (test nyfs=556) 22.1 % 40.1-51.0 MEAN CORPUSCULAR VOLUME (BEAKER) (test kthx=848) 96.5 fL 79.0-92.2 MEAN CORPUSCULAR HEMOGLOBIN (BEAKER) (test 30.6 pg 25.7-32.2 fcmj=894) MEAN CORPUSCULAR HEMOGLOBIN CONC (BEAKER) (test 31.7 GM/DL 32.3-36.5 qlup=348) RED CELL DISTRIBUTION WIDTH (BEAKER) (test 17.3 % 11.6-14.4 skus=694) PLATELET COUNT (BEAKER) (test lstn=398) 47 K/CU MM 150-450 MEAN PLATELET VOLUME (BEAKER) (test vhmp=900) 13.0 fL 9.4-12.4 NUCLEATED RED BLOOD CELLS (BEAKER) (test 0 /100 WBC 0-0 cxuc=911) NEUTROPHILS RELATIVE PERCENT (BEAKER) (test 79 % efvd=157) LYMPHOCYTES RELATIVE PERCENT (BEAKER) (test 9 % behb=739) MONOCYTES RELATIVE PERCENT (BEAKER) (test 9 % twjj=550) EOSINOPHILS RELATIVE PERCENT (BEAKER) (test 4 % qsel=586) BASOPHILS RELATIVE PERCENT (BEAKER) (test 0 % lqeo=157) NEUTROPHILS ABSOLUTE COUNT (BEAKER) (test 3.58 K/ L 1.78-5.38 jegs=998) LYMPHOCYTES ABSOLUTE COUNT (BEAKER) (test 0.40 K/ L 1.32-3.57 vych=445) MONOCYTES ABSOLUTE COUNT (BEAKER) (test ynvg=048) 0.39 K/ L 0.30-0.82 EOSINOPHILS ABSOLUTE COUNT (BEAKER) (test 0.17 K/ L 0.04-0.54 rfte=981) BASOPHILS ABSOLUTE COUNT (BEAKER) (test ipiz=292) 0.01 K/ L 0.01-0.08 IMMATURE GRANULOCYTES-RELATIVE PERCENT (BEAKER) 0 % 0-1 (test mgbm=1563) RAD, CHEST, 1 VIEW, NON [id number] 14:12:00Reason for exam:->chest painShould this be performed at the bedside?->YesFINAL REPORT PA and Lateral views of the chest dated 09/11/2018 COMPARISON: April 23 Clinical information: chest pain Comment: Heart is in upper limits of normal in size.Pulmonary vasculature is unremarkable. Lungs are clear. No pulmonary infiltrate or pleural effusion is present. Impression: Stable interval examination of the chest. Signed: Smith Palomino Verified Date/ Time: 09/11/2018 14:12:27 Reading Location: [address] Consult Reading Room BLOOD [id number] 19:00:00 Test Item Value Reference Range Comments CULTURE (BEAKER) (test fxqr=9408) No growth in 5 days BLOOD [id number] 19:00:00 Test Item Value Reference Range Comments CULTURE (BEAKER) (test lewx=0436) No growth in 5 days POCT-GLUCOSE [id number] 13:04:00 Test Item Value Reference Range Comments POC-GLUCOSE METER (BEAKER) 216 mg/dL 70-110 TESTED AT [address] (test avyn=1236) [facility] [address] U/S, ABDOMINAL, [id number] 12:36:00Abdomen limited area? Add comment if clarification is needed.->LiverReason for exam:->abdominal pain, distension, evalute for ascites for paracentesisShould this be performed at the bedside?->NoFINAL REPORT Right upper quadrant abdominal ultrasound Clinical History: Abdominal pain, distention Discussion: Sonographic evaluation of the right upper quadrant of the abdomenis performed. The liver has normal size and measures 16.4 cm in length. The liver demonstrates heterogeneous echotexture, without focal mass. There is no intra or extrahepatic biliary dilatation. The common bile duct measures 5 mm. Echogenic shadowing stone is noted in the gallbladder without evidenceof gallbladder wall thickening, pericholecystic fluid, or sonographic Mercer sign. The main portal vein diameter is normal, measuring 7 mm. The pancreas was not well seen. There is no ascites. The right kidney measures 9.0 cm in length and is normal in size. There is no renal mass, hydronephrosis, or shadowing renal calculus. Segments of the inferior vena cava and aorta visualized demonstrate no abnormality. Impression: 1. Heterogeneous liver echotexture likely represent cirrhotic changes. 2. Cholelithiasis without sonographic evidence of acute cholecystitis. 3. No evidence of ascites. Signed: Ernesto Souzaeport Verified Date/Time: 08/20/2018 12:36:44 Reading Location: [address] Ultrasound Reading Room [id number] 11:08:00 Test Item Value Reference Range Comments FIBRINOGEN LEVEL (BEAKER) (test qeml=238) 264 mg/dl 225-434 HEMOGLOBIN AND [id number] 11:02:00 Test Item Value Reference Range Comments HEMOGLOBIN (BEAKER) (test tord=921) 7.3 GM/DL 13.7-17.5 HEMATOCRIT (BEAKER) (test lwyj=506) 23.7 % 40.1-51.0 POCT-GLUCOSE [id number] 07:34:00 Test Item Value Reference Range Comments POC-GLUCOSE METER ([facility]) 195 mg/dL 70-110 TESTED AT [facility] [address] [facility] (test wwir=0025) [facility] [address] CBC W/PLT COUNT & AUTO [id number] 07:16:00 Test Item Value Reference Range Comments WHITE BLOOD CELL COUNT (BEAKER) (test psqg=651) 7.0 K/ L 3.5-10.5 RED BLOOD CELL COUNT (BEAKER) (test ldih=487) 2.21 M/ L 4.63-6.08 HEMOGLOBIN (BEAKER) (test obfk=422) 6.7 GM/DL 13.7-17.5 HEMATOCRIT (BEAKER) (test fxqj=407) 21.7 % 40.1-51.0 MEAN CORPUSCULAR VOLUME (BEAKER) (test ktuq=372) 98.2 fL 79.0-92.2 MEAN CORPUSCULAR HEMOGLOBIN (BEAKER) (test 30.3 pg 25.7-32.2 jnbg=355) MEAN CORPUSCULAR HEMOGLOBIN CONC (BEAKER) (test 30.9 GM/DL 32.3-36.5 swwk=846) RED CELL DISTRIBUTION WIDTH (BEAKER) (test 16.2 % 11.6-14.4 wbzu=443) PLATELET COUNT (BEAKER) (test puls=256) 38 K/CU MM 150-450 MEAN PLATELET VOLUME (BEAKER) (test pezh=525) 11.9 fL 9.4-12.4 NUCLEATED RED BLOOD CELLS (BEAKER) (test 0 /100 WBC 0-0 hiqx=062) NEUTROPHILS RELATIVE PERCENT (BEAKER) (test 83 % xafk=950) LYMPHOCYTES RELATIVE PERCENT (BEAKER) (test 7 % eocg=497) MONOCYTES RELATIVE PERCENT (BEAKER) (test 6 % qxmg=273) EOSINOPHILS RELATIVE PERCENT (BEAKER) (test 4 % nysg=142) BASOPHILS RELATIVE PERCENT (BEAKER) (test 0 % deoz=475) NEUTROPHILS ABSOLUTE COUNT (BEAKER) (test 5.81 K/ L 1.78-5.38 pemh=453) LYMPHOCYTES ABSOLUTE COUNT (BEAKER) (test 0.49 K/ L 1.32-3.57 rkwe=902) MONOCYTES ABSOLUTE COUNT (BEAKER) (test zhyh=833) 0.43 K/ L 0.30-0.82 EOSINOPHILS ABSOLUTE COUNT (BEAKER) (test 0.26 K/ L 0.04-0.54 aqkj=161) BASOPHILS ABSOLUTE COUNT (BEAKER) (test uysy=908) 0.03 K/ L 0.01-0.08 IMMATURE GRANULOCYTES-RELATIVE PERCENT (BEAKER) 0 % 0-1 (test gojj=1411) CALCIUM, [id number] 07:13:00 Test Item Value Reference Range Comments CALCIUM IONIZED (BEAKER) (test wrrf=699) 1.06 mmol/L 1.12-1.27 PH, BLOOD (BEAKER) (test nprs=5237) 7.46 [id number] 06:50:00 Test Item Value Reference Range Comments PHOSPHORUS (BEAKER) (test whjg=965) 3.4 mg/dL 2.3-4.7 [id number] 06:50:00 Test Item Value Reference Range Comments MAGNESIUM (BEAKER) (test kdev=799) 2.0 mg/dL 1.6-2.6 HEPATIC FUNCTION [id number] 06:50:00 Test Item Value Reference Range Comments TOTAL PROTEIN (BEAKER) (test mdku=936) 5.4 gm/dL 6.0-8.3 ALBUMIN (BEAKER) (test nxka=1498) 2.4 g/dL 3.5-5.0 BILIRUBIN TOTAL (BEAKER) (test llri=300) 1.5 mg/dL 0.2-1.2 BILIRUBIN DIRECT (BEAKER) (test nuhb=982) 0.9 mg/dL 0.1-0.5 ALKALINE PHOSPHATASE (BEAKER) (test rppv=235) 109 U/L 40-150 AST (SGOT) (BEAKER) (test ezka=837) 38 U/L 5-34 ALT (SGPT) (BEAKER) (test vvoh=423) 25 U/L 6-55 COMPREHENSIVE METABOLIC [id number] 06:50:00 Test Item Value Reference Range Comments TOTAL PROTEIN (BEAKER) 5.4 gm/dL 6.0-8.3 (test xtwd=392) ALBUMIN (BEAKER) (test 2.4 g/dL 3.5-5.0 pkgz=5171) ALKALINE PHOSPHATASE 109 U/L 40-150 (BEAKER) (test rnal=359) BILIRUBIN TOTAL (BEAKER) 1.5 mg/dL 0.2-1.2 (test dyki=042) SODIUM (BEAKER) (test 133 meq/L 136-145 ajrg=954) POTASSIUM (BEAKER) (test 3.7 meq/L 3.5-5.1 ocxb=108) CHLORIDE (BEAKER) (test 104 meq/L 98-107 vdew=948) CO2 (BEAKER) (test 23 meq/L 22-29 idbm=333) BLOOD UREA NITROGEN 60 mg/dL 7-21 (BEAKER) (test rcwb=200) CREATININE (BEAKER) (test 1.61 mg/dL 0.57-1.25 fezp=540) GLUCOSE RANDOM (BEAKER) 147 mg/dL 70-105 (test gswy=269) CALCIUM (BEAKER) (test 8.4 mg/dL 8.4-10.2 pugs=762) AST (SGOT) (BEAKER) (test 38 U/L 5-34 dxda=353) ALT (SGPT) (BEAKER) (test 25 U/L 6-55 jhuv=712) EGFR (BEAKER) (test 43 mL/min/1.73 sq m ESTIMATED GFR IS NOT xdru=5348) ACCURATE CREATININE CLEARANCE IN PREDICTING GLOMERULAR FILTRATION RATE. ESTIMATED GFR IS NOT APPLICABLE FOR DIALYSIS PATIENTS. PROTHROMBIN [id number] 06:33:00 Test Item Value Reference Range Comments PROTIME (BEAKER) (test polf=186) 18.4 seconds 11.7-14.7 INR (BEAKER) (test uhkz=601) 1.5 <=5.9 RECOMMENDED COUMADIN/WARFARIN INR THERAPY RANGESSTANDARD DOSE: 2.0 - 3.0 Includes: PROPHYLAXIS forvenous thrombosis, systemic embolization; TREATMENT for venous thrombosis and/or pulmonary embolus.HIGH RISK: Target INR is 2.5-3.5 for patients with mechanical heart valves.POCT-GLUCOSE [id number] 01:16:00 Test Item Value Reference Range Comments POC-GLUCOSE METER (BEAKER) 202 mg/dL 70-110 TESTED AT [facility] [address] [facility] (test zzkd=9645) [facility] [address] URINALYSIS W/ REFLEX URINE [id number] 20:10:00 Test Item Value Reference Range Comments COLOR (BEAKER) (test lzep=054) Yellow CLARITY (BEAKER) (test orvb=399) Clear SPECIFIC GRAVITY UA (BEAKER) (test gzyt=092) 1.010 1.001-1.035 PH UA (BEAKER) (test sknk=393) 5.0 5.0-8.0 PROTEIN UA (BEAKER) (test qayk=981) Negative Negative GLUCOSE UA (BEAKER) (test zeri=754) Negative Negative KETONES UA (BEAKER) (test fjft=398) Negative Negative BILIRUBIN UA (BEAKER) (test hpfm=751) Negative Negative BLOOD UA (BEAKER) (test axwt=954) Negative Negative NITRITE UA (BEAKER) (test qxin=128) Negative Negative LEUKOCYTE ESTERASE UA (BEAKER) (test mjlg=755) Negative Negative UROBILINOGEN UA (BEAKER) (test vxpv=895) 0.2 mg/dL 0.2-1.0 RBC UA (BEAKER) (test rqni=524) 4 /HPF WBC UA (BEAKER) (test uzoy=516) 2 /HPF HYALINE CASTS (BEAKER) (test ztbr=037) 3 /LPF SOURCE(BEAKER) (test wycq=2967) RAD, ABDOMEN, 2 [id number] 20:03:00Reason for exam:->abdominal distention, evaluate for bowel distention / constipationShould this be performed at the bedside?->NoFINAL REPORT TECHNIQUE: Single View of the Abdomen. INDICATION: Abdominal distention, evaluate for bowel distention/constipation. COMPARISON: Outside CT from 08/18/2018. FINDINGS/ IMPRESSION: Prominent loops of large and small bowel with contrast in the colon. There are some air-fluid levels in the small bowel. Given that there is contrast in the colon, the prominent loops of small bowel with an air-fluid level are likely due to adynamic ileus. Continued radiographic follow-up is recommended to document resolution of the small bowel distention and exclude a partial small bowel obstruction. Signed: Abrahan Pollard MDReport Verified Date/Time : 08/19/2018 20:03:18 Reading Location: [facility] [id number] Consult Reading Room POCT- GLUCOSE [id number] 12:42:00 Test Item Value Reference Range Comments POC-GLUCOSE METER (BEAKER) 197 mg/dL 70-110 TESTED AT [address] (test ekfi=4681) [place] [id number] POCT-GLUCOSE [id number] 07:44:00 Test Item Value Reference Range Comments POC-GLUCOSE METER (BEAKER) 149 mg/dL 70-110 TESTED AT [address] (test rujd=7619) [facility] [address] [id number] 02:37:00 Test Item Value Reference Range Comments AMMONIA (BEAKER) (test dyyd=967) 50 mol/L 18-72 COMPREHENSIVE METABOLIC [id number] 02:26:00 Test Item Value Reference Range Comments TOTAL PROTEIN (BEAKER) 5.9 gm/dL 6.0-8.3 (test illk=216) ALBUMIN (BEAKER) (test 2.6 g/dL 3.5-5.0 gbye=1407) ALKALINE PHOSPHATASE 117 U/L 40-150 (BEAKER) (test vwav=485) BILIRUBIN TOTAL (BEAKER) 1.8 mg/dL 0.2-1.2 (test vxbt=377) SODIUM (BEAKER) (test 136 meq/L 136-145 qibt=735) POTASSIUM (BEAKER) (test 3.4 meq/L 3.5-5.1 rodz=567) CHLORIDE (BEAKER) (test 103 meq/L 98-107 kxrz=536) CO2 (BEAKER) (test 22 meq/L 22-29 himq=892) BLOOD UREA NITROGEN 60 mg/dL 7-21 (BEAKER) (test kkjb=161) CREATININE (BEAKER) (test 1.52 mg/dL 0.57-1.25 mzta=229) GLUCOSE RANDOM (BEAKER) 160 mg/dL 70-105 (test bshx=002) CALCIUM (BEAKER) (test 8.5 mg/dL 8.4-10.2 zooa=762) AST (SGOT) (BEAKER) (test 46 U/L 5-34 mrub=472) ALT (SGPT) (BEAKER) (test 29 U/L 6-55 uowc=364) EGFR (BEAKER) (test 46 mL/min/1.73 sq m ESTIMATED GFR IS NOT bqff=2034) ACCURATE CREATININE CLEARANCE IN PREDICTING GLOMERULAR FILTRATION RATE. ESTIMATED GFR IS NOT APPLICABLE FOR DIALYSIS PATIENTS. PROTHROMBIN [id number] 01:52:00 Test Item Value Reference Range Comments PROTIME (BEAKER) (test vaxw=106) 17.5 seconds 11.7-14.7 INR (BEAKER) (test kmwn=442) 1.4 <=5.9 RECOMMENDED COUMADIN/WARFARIN INR THERAPY RANGESSTANDARD DOSE: 2.0 - 3.0 Includes: PROPHYLAXIS forvenous thrombosis, systemic embolization; TREATMENT for venous thrombosis and/or pulmonary embolus.HIGH RISK: Target INR is 2.5-3.5 for patients with mechanical heart valves.CBC W/PLT COUNT & AUTO [id number] 01:48:00 Test Item Value Reference Range Comments WHITE BLOOD CELL COUNT (BEAKER) (test leux=860) 6.8 K/ L 3.5-10.5 RED BLOOD CELL COUNT (BEAKER) (test isew=992) 2.51 M/ L 4.63-6.08 HEMOGLOBIN (BEAKER) (test jdwb=951) 7.7 GM/DL 13.7-17.5 HEMATOCRIT (BEAKER) (test ionm=620) 24.5 % 40.1-51.0 MEAN CORPUSCULAR VOLUME (BEAKER) (test htes=284) 97.6 fL 79.0-92.2 MEAN CORPUSCULAR HEMOGLOBIN (BEAKER) (test 30.7 pg 25.7-32.2 djaw=770) MEAN CORPUSCULAR HEMOGLOBIN CONC (BEAKER) (test 31.4 GM/DL 32.3-36.5 wgfb=958) RED CELL DISTRIBUTION WIDTH (BEAKER) (test 15.9 % 11.6-14.4 fzjh=898) PLATELET COUNT (BEAKER) (test tvww=482) 50 K/CU MM 150-450 MEAN PLATELET VOLUME (BEAKER) (test ucow=616) 13.7 fL 9.4-12.4 NUCLEATED RED BLOOD CELLS (BEAKER) (test 0 /100 WBC 0-0 pebz=592) NEUTROPHILS RELATIVE PERCENT (BEAKER) (test 88 % lqfc=220) LYMPHOCYTES RELATIVE PERCENT (BEAKER) (test 4 % iihq=626) MONOCYTES RELATIVE PERCENT (BEAKER) (test 5 % fivs=648) EOSINOPHILS RELATIVE PERCENT (BEAKER) (test 2 % hrns=480) BASOPHILS RELATIVE PERCENT (BEAKER) (test 0 % ecuj=309) NEUTROPHILS ABSOLUTE COUNT (BEAKER) (test 6.01 K/ L 1.78-5.38 gstb=457) LYMPHOCYTES ABSOLUTE COUNT (BEAKER) (test 0.29 K/ L 1.32-3.57 lghr=682) MONOCYTES ABSOLUTE COUNT (BEAKER) (test bqko=880) 0.32 K/ L 0.30-0.82 EOSINOPHILS ABSOLUTE COUNT (BEAKER) (test 0.13 K/ L 0.04-0.54 lhtr=298) BASOPHILS ABSOLUTE COUNT (BEAKER) (test pbgn=114) 0.01 K/ L 0.01-0.08 IMMATURE GRANULOCYTES-RELATIVE PERCENT (BEAKER) 1 % 0-1 (test ezvp=5570) POCT-GLUCOSE [id number] 00:27:00 Test Item Value Reference Range Comments POC-GLUCOSE METER (BEAKER) 201 mg/dL 70-110 TESTED AT [address] (test tbga=6141) [place] [address] BLOOD [id number] 13:00:00 Test Item Value Reference Range Comments CULTURE (BEAKER) (test afjs=0742) No growth in 5 days BLOOD [id number] 13:00:00 Test Item Value Reference Range Comments CULTURE (BEAKER) (test lmmj=6508) No growth in 5 days STOOL CULTURE + SHIGA [id number] 06:17:00 Test Item Value Reference Range Comments CULTURE (BEAKER) (test No Salmonella, Shigella or akpw=4455) Campylobacter isolated STOOL PATH [id number] 06:17:00 Test Item Value Reference Range Comments PATHOGEN EXAM CHARGED (BEAKER) (test wbfp=9509) Done POCT-GLUCOSE [id number] 17:50:00 Test Item Value Reference Range Comments POC-GLUCOSE METER (BEAKER) 200 mg/dL 70-110 TESTED AT [address] (test ytww=5826) [place] [address] SHIGA TOXIN [id number] 15:19:00 Test Item Value Reference Range Comments SHIGA TOXIN 1 (BEAKER) (test ipcm=2210) Not detected Not detected SHIGA TOXIN 2 (BEAKER) (test lwjv=8154) Not detected Not detected POCT-GLUCOSE [id number] 12:17:00 Test Item Value Reference Range Comments POC-GLUCOSE METER (BEAKER) 106 mg/dL 70-110 TESTED AT [address] (test rhoh=3227) [place] [address] C. DIFFICILE GDH [id number] 09:26:00 Test Item Value Reference Range Comments CDT TOXIN (test Negative Negative azte=[id number]) CDT GDH ANTIGEN (test Negative Negative No indication of Clostridium dgvv=[id number]) difficile infection and no colonization. Discontinue enteric isolation and therapy. Testing performed by [email or web address] Rapid Cassette Assay. For GDH, published sensitivity of the assay is 98.7% compared to cytotoxicity testing. For Toxin AB, published sensitivity is 87.8% and specificity 99.4% compared to cytotoxicity testing.Verification of kit performance was done by the [facility] prior to clinical use.POCT-GLUCOSE [id number] 07:57:00 Test Item Value Reference Range Comments POC-GLUCOSE METER (BEAKER) 291 mg/dL 70-110 TESTED AT [facility] [address] (test tcxf=6961) [facility] [address] HEPATITIS A ANTIBODY, [id number] 07:41:00 Test Item Value Reference Range Comments HEPATITIS A IGG ANTIBODY (BEAKER) (test ldvt=1624) Reactive Nonreactive HEPATITIS B SURFACE [id number] 07:06:00 Test Item Value Reference Range Comments HEPATITIS B SURFACE ANTIBODY (BEAKER) (test < mIU/mL <8.0 wvmp=160) CALCIUM, [id number] 06:50:00 Test Item Value Reference Range Comments CALCIUM IONIZED (BEAKER) (test rcao=039) 1.04 mmol/L 1.12-1.27 PH, BLOOD (BEAKER) (test aqyn=2884) 7.46 CBC W/PLT COUNT & AUTO [id number] 06:42:00 Test Item Value Reference Range Comments WHITE BLOOD CELL COUNT 4.0 K/ L 3.5-10.5 (BEAKER) (test mpkh=825) RED BLOOD CELL COUNT (BEAKER) 2.73 M/ L 4.63-6.08 (test kfiz=803) HEMOGLOBIN (BEAKER) (test 8.5 GM/DL 13.7-17.5 wqje=268) HEMATOCRIT (BEAKER) (test 28.0 % 40.1-51.0 ygiy=225) MEAN CORPUSCULAR VOLUME 102.6 fL 79.0-92.2 (BEAKER) (test ddco=680) MEAN CORPUSCULAR HEMOGLOBIN 31.1 pg 25.7-32.2 (BEAKER) (test dzyk=119) MEAN CORPUSCULAR HEMOGLOBIN 30.4 GM/DL 32.3-36.5 CONC (BEAKER) (test pkub=077) RED CELL DISTRIBUTION WIDTH 17.5 % 11.6-14.4 (BEAKER) (test mwwm=912) PLATELET COUNT (BEAKER) (test 46 K/CU MM 150-450 ycqk=599) MEAN PLATELET VOLUME (BEAKER) fL 9.4-12.4 Unable to report due to (test bgiw=633) abnormal Platelet population distribution. NUCLEATED RED BLOOD CELLS 0 /100 WBC 0-0 (BEAKER) (test hjkx=719) NEUTROPHILS RELATIVE PERCENT 64 % (BEAKER) (test nfah=238) LYMPHOCYTES RELATIVE PERCENT 16 % (BEAKER) (test gaxg=325) MONOCYTES RELATIVE PERCENT 12 % (BEAKER) (test apbg=350) EOSINOPHILS RELATIVE PERCENT 8 % (BEAKER) (test pfew=956) BASOPHILS RELATIVE PERCENT 1 % (BEAKER) (test mhli=085) NEUTROPHILS ABSOLUTE COUNT 2.53 K/ L 1.78-5.38 (BEAKER) (test sbzv=299) LYMPHOCYTES ABSOLUTE COUNT 0.63 K/ L 1.32-3.57 (BEAKER) (test nuwr=082) MONOCYTES ABSOLUTE COUNT 0.46 K/ L 0.30-0.82 (BEAKER) (test nzfn=393) EOSINOPHILS ABSOLUTE COUNT 0.32 K/ L 0.04-0.54 (BEAKER) (test zdac=018) BASOPHILS ABSOLUTE COUNT 0.03 K/ L 0.01-0.08 (BEAKER) (test agng=183) IMMATURE GRANULOCYTES-RELATIVE 0 % 0-1 PERCENT (BEAKER) (test ggxa=0881) COMPREHENSIVE METABOLIC [id number] 06:39:00 Test Item Value Reference Range Comments TOTAL PROTEIN (BEAKER) 6.1 gm/dL 6.0-8.3 (test kmgk=719) ALBUMIN (BEAKER) (test 2.7 g/dL 3.5-5.0 pyxo=4533) ALKALINE PHOSPHATASE 126 U/L 40-150 (BEAKER) (test sxpu=530) BILIRUBIN TOTAL (BEAKER) 2.3 mg/dL 0.2-1.2 (test zvym=533) SODIUM (BEAKER) (test 135 meq/L 136-145 gait=711) POTASSIUM (BEAKER) (test 4.3 meq/L 3.5-5.1 wsep=605) CHLORIDE (BEAKER) (test 109 meq/L 98-107 oiqs=777) CO2 (BEAKER) (test 20 meq/L 22-29 ltdd=619) BLOOD UREA NITROGEN 29 mg/dL 7-21 (BEAKER) (test fyaw=414) CREATININE (BEAKER) (test 1.23 mg/dL 0.57-1.25 wyxs=871) GLUCOSE RANDOM (BEAKER) 118 mg/dL 70-105 (test fxua=233) CALCIUM (BEAKER) (test 8.6 mg/dL 8.4-10.2 gzpp=553) AST (SGOT) (BEAKER) (test 58 U/L 5-34 zffj=797) ALT (SGPT) (BEAKER) (test 35 U/L 6-55 hzbn=543) EGFR (BEAKER) (test 58 mL/min/1.73 sq m ESTIMATED GFR IS NOT dnba=7651) ACCURATE CREATININE CLEARANCE IN PREDICTING GLOMERULAR FILTRATION RATE. ESTIMATED GFR IS NOT APPLICABLE FOR DIALYSIS PATIENTS. Specimen slightly ictericHEPATIC FUNCTION [id number] 06:39:00 Test Item Value Reference Range Comments TOTAL PROTEIN (BEAKER) (test tlxk=104) 6.1 gm/dL 6.0-8.3 ALBUMIN (BEAKER) (test tbio=0165) 2.7 g/dL 3.5-5.0 BILIRUBIN TOTAL (BEAKER) (test ulgr=108) 2.3 mg/dL 0.2-1.2 BILIRUBIN DIRECT (BEAKER) (test smnr=288) 1.2 mg/dL 0.1-0.5 ALKALINE PHOSPHATASE (BEAKER) (test ukcv=784) 126 U/L 40-150 AST (SGOT) (BEAKER) (test tbez=455) 58 U/L 5-34 ALT (SGPT) (BEAKER) (test fmgo=178) 35 U/L 6-55 Specimen slightly [id number] 06:38:00 Test Item Value Reference Range Comments PHOSPHORUS (BEAKER) (test horg=077) 2.8 mg/dL 2.3-4.7 [id number] 06:38:00 Test Item Value Reference Range Comments MAGNESIUM (BEAKER) (test irlf=140) 1.9 mg/dL 1.6-2.6 POCT-GLUCOSE [id number] 21:42:00 Test Item Value Reference Range Comments POC-GLUCOSE METER (BEAKER) 169 mg/dL 70-110 TESTED AT [facility] [address] [facility] (test kvdi=8549) [facility] [address] POCT-GLUCOSE [id number] 18:07:00 Test Item Value Reference Range Comments POC-GLUCOSE METER (BEAKER) 242 mg/dL 70-110 TESTED AT [facility] [address] (test uoxq=6902) [place] [address] U/S, ABDOMINAL, [id number] 17:37:00Send ascitic fluid for cell count and [...] Keith Verified Date/Time: 07/22/2018 17:37:51 Reading Location: [address] Ultrasound Reading Room 05: 37 PMURINALYSIS W/ [id number] 16:02:00 Test Item Value Reference Range Comments COLOR (BEAKER) (test fajq=529) Yellow CLARITY (BEAKER) (test gqch=052) Clear SPECIFIC GRAVITY UA (BEAKER) (test 1.012 1.001-1.035 rttb=173) PH UA (BEAKER) (test yyqm=221) 5.5 5.0-8.0 PROTEIN UA (BEAKER) (test thai=152) 10 mg/dL Negative GLUCOSE UA (BEAKER) (test faid=837) Negative Negative KETONES UA (BEAKER) (test jbne=921) Negative Negative BILIRUBIN UA (BEAKER) (test alka=998) Negative Negative BLOOD UA (BEAKER) (test nkam=029) Moderate Negative NITRITE UA (BEAKER) (test ctze=766) Negative Negative LEUKOCYTE ESTERASE UA (BEAKER) (test Negative Negative qyjq=972) UROBILINOGEN UA (BEAKER) (test mvme=173) 0.2 mg/dL 0.2-1.0 RBC UA (BEAKER) (test htsc=087) 11 /HPF WBC UA (BEAKER) (test tzvd=970) < /HPF MUCUS (BEAKER) (test lnrz=5806) Rare SQUAMOUS EPITHELIAL (BEAKER) (test 1 /HPF ndzj=304) HYALINE CASTS (BEAKER) (test bsqh=039) 2 /LPF SOURCE(BEAKER) (test bejm=0988) Urine, Clean Catch FECAL [id number] 14:04:00 Test Item Value Reference Range Comments FECAL LEUKOCYTES (BEAKER) No fecal leukocytes seen No fecal leukocytes seen (test oibi=467) POCT-GLUCOSE [id number] 11:45:00 Test Item Value Reference Range Comments POC-GLUCOSE METER (BEAKER) 233 mg/dL 70-110 TESTED AT [facility] [address] [facility] (test irfc=6281) [facility] [address] BASIC METABOLIC [id number] 08:41:00 Test Item Value Reference Range Comments SODIUM (BEAKER) (test 139 meq/L 136-145 jajd=041) POTASSIUM (BEAKER) (test 3.6 meq/L 3.5-5.1 oord=292) CHLORIDE (BEAKER) (test 112 meq/L 98-107 bale=960) CO2 (BEAKER) (test 18 meq/L 22-29 ujps=908) BLOOD UREA NITROGEN 33 mg/dL 7-21 (BEAKER) (test ulgq=301) CREATININE (BEAKER) (test 1.13 mg/dL 0.57-1.25 wxmt=529) GLUCOSE RANDOM (BEAKER) 107 mg/dL 70-105 (test uecd=527) CALCIUM (BEAKER) (test 8.9 mg/dL 8.4-10.2 rzyb=669) EGFR (BEAKER) (test 64 mL/min/1.73 sq m ESTIMATED GFR IS NOT sope=7053) ACCURATE CREATININE CLEARANCE IN PREDICTING GLOMERULAR FILTRATION RATE. ESTIMATED GFR IS NOT APPLICABLE FOR DIALYSIS PATIENTS. Specimen slightly ictericHEPATIC FUNCTION [id number] 08:41:00 Test Item Value Reference Range Comments TOTAL PROTEIN (BEAKER) (test gviv=330) 6.2 gm/dL 6.0-8.3 ALBUMIN (BEAKER) (test vzyf=4609) 2.7 g/dL 3.5-5.0 BILIRUBIN TOTAL (BEAKER) (test ujwg=420) 2.2 mg/dL 0.2-1.2 BILIRUBIN DIRECT (BEAKER) (test nduk=621) 1.1 mg/dL 0.1-0.5 ALKALINE PHOSPHATASE (BEAKER) (test bbxh=589) 125 U/L 40-150 AST (SGOT) (BEAKER) (test kpdb=436) 50 U/L 5-34 ALT (SGPT) (BEAKER) (test sfpx=089) 33 U/L 6-55 Specimen slightly ictericPOCT-GLUCOSE [id number] 08:40:00 Test Item Value Reference Range Comments POC-GLUCOSE METER (BEAKER) 138 mg/dL 70-110 TESTED AT [facility] [address] [facility] (test gryu=3068) [facility] [address] CBC W/PLT COUNT & AUTO [id number] 08:29:00 Test Item Value Reference Range Comments WHITE BLOOD CELL COUNT (BEAKER) (test azut=818) 4.4 K/ L 3.5-10.5 RED BLOOD CELL COUNT (BEAKER) (test giwu=186) 2.83 M/ L 4.63-6.08 HEMOGLOBIN (BEAKER) (test tkgt=801) 8.9 GM/DL 13.7-17.5 HEMATOCRIT (BEAKER) (test feog=053) 28.8 % 40.1-51.0 MEAN CORPUSCULAR VOLUME (BEAKER) (test zxua=685) 101.8 fL 79.0-92.2 MEAN CORPUSCULAR HEMOGLOBIN (BEAKER) (test 31.4 pg 25.7-32.2 kgob=256) MEAN CORPUSCULAR HEMOGLOBIN CONC (BEAKER) (test 30.9 GM/DL 32.3-36.5 xioj=386) RED CELL DISTRIBUTION WIDTH (BEAKER) (test 17.8 % 11.6-14.4 tqev=709) PLATELET COUNT (BEAKER) (test arip=030) 41 K/CU MM 150-450 MEAN PLATELET VOLUME (BEAKER) (test bnhz=924) 13.1 fL 9.4-12.4 NUCLEATED RED BLOOD CELLS (BEAKER) (test 0 /100 WBC 0-0 raqb=883) NEUTROPHILS RELATIVE PERCENT (BEAKER) (test 69 % ifqx=744) LYMPHOCYTES RELATIVE PERCENT (BEAKER) (test 13 % wmmi=575) MONOCYTES RELATIVE PERCENT (BEAKER) (test 10 % uwdz=341) EOSINOPHILS RELATIVE PERCENT (BEAKER) (test 8 % sswp=026) BASOPHILS RELATIVE PERCENT (BEAKER) (test 1 % htbo=958) NEUTROPHILS ABSOLUTE COUNT (BEAKER) (test 3.02 K/ L 1.78-5.38 jojh=563) LYMPHOCYTES ABSOLUTE COUNT (BEAKER) (test 0.55 K/ L 1.32-3.57 kjuk=868) MONOCYTES ABSOLUTE COUNT (BEAKER) (test tjld=633) 0.45 K/ L 0.30-0.82 EOSINOPHILS ABSOLUTE COUNT (BEAKER) (test 0.33 K/ L 0.04-0.54 hucp=832) BASOPHILS ABSOLUTE COUNT (BEAKER) (test eqng=265) 0.02 K/ L 0.01-0.08 IMMATURE GRANULOCYTES-RELATIVE PERCENT (BEAKER) 0 % 0-1 (test ykjn=5243) POCT-GLUCOSE [id number] 02:20:00 Test Item Value Reference Range Comments POC-GLUCOSE METER (BEAKER) 222 mg/dL 70-110 TESTED AT [facility] [address] [facility] (test zoma=6012) [facility] [address] [id number] 14:18:00 Test Item Value Reference Range Comments PHOSPHORUS (BEAKER) (test nrfo=133) 3.4 mg/dL 2.3-4.7 [id number] 14:18:00 Test Item Value Reference Range Comments MAGNESIUM (BEAKER) (test bwkq=401) 1.9 mg/dL 1.6-2.6 BASIC METABOLIC [id number] 14:18:00 Test Item Value Reference Range Comments SODIUM (BEAKER) (test 140 meq/L 136-145 jgjn=983) POTASSIUM (BEAKER) (test 3.3 meq/L 3.5-5.1 laxk=676) CHLORIDE (BEAKER) (test 108 meq/L 98-107 yvxm=897) CO2 (BEAKER) (test 21 meq/L 22-29 qotf=787) BLOOD UREA NITROGEN 40 mg/dL 7-21 (BEAKER) (test zmad=373) CREATININE (BEAKER) (test 1.41 mg/dL 0.57-1.25 tsus=753) GLUCOSE RANDOM (BEAKER) 213 mg/dL 70-105 (test cydi=838) CALCIUM (BEAKER) (test 9.2 mg/dL 8.4-10.2 vqll=452) EGFR (BEAKER) (test 50 mL/min/1.73 sq m ESTIMATED GFR IS NOT zwwk=4973) ACCURATE CREATININE CLEARANCE IN PREDICTING GLOMERULAR FILTRATION RATE. ESTIMATED GFR IS NOT APPLICABLE FOR DIALYSIS PATIENTS. Specimen slightly ictericHEPATIC FUNCTION [id number] 14:18:00 Test Item Value Reference Range Comments TOTAL PROTEIN (BEAKER) (test twum=672) 7.0 gm/dL 6.0-8.3 ALBUMIN (BEAKER) (test hbjj=2332) 3.1 g/dL 3.5-5.0 BILIRUBIN TOTAL (BEAKER) (test dcqf=554) 2.2 mg/dL 0.2-1.2 BILIRUBIN DIRECT (BEAKER) (test kbvj=514) 1.2 mg/dL 0.1-0.5 ALKALINE PHOSPHATASE (BEAKER) (test ncba=168) 154 U/L 40-150 AST (SGOT) (BEAKER) (test ogya=197) 49 U/L 5-34 ALT (SGPT) (BEAKER) (test rhmm=108) 36 U/L 6-55 Specimen slightly ictericCBC W/PLT COUNT & AUTO [id number] 14:13 :00 Test Item Value Reference Range Comments WHITE BLOOD CELL COUNT 4.7 K/ L 3.5-10.5 (BEAKER) (test dxys=744) RED BLOOD CELL COUNT (BEAKER) 2.82 M/ L 4.63-6.08 (test enac=374) HEMOGLOBIN (BEAKER) (test 9.0 GM/DL 13.7-17.5 ohki=544) HEMATOCRIT (BEAKER) (test 28.3 % 40.1-51.0 relo=292) MEAN CORPUSCULAR VOLUME 100.4 fL 79.0-92.2 (BEAKER) (test uxbj=633) MEAN CORPUSCULAR HEMOGLOBIN 31.9 pg 25.7-32.2 (BEAKER) (test ehlq=636) MEAN CORPUSCULAR HEMOGLOBIN 31.8 GM/DL 32.3-36.5 CONC (BEAKER) (test kkjv=899) RED CELL DISTRIBUTION WIDTH 17.6 % 11.6-14.4 (BEAKER) (test rqld=342) PLATELET COUNT (BEAKER) (test 41 K/CU MM 150-450 yqit=905) MEAN PLATELET VOLUME (BEAKER) fL 9.4-12.4 Unable to report due to (test glto=260) abnormal Platelet population distribution. NUCLEATED RED BLOOD CELLS 0 /100 WBC 0-0 (BEAKER) (test pncy=228) NEUTROPHILS RELATIVE PERCENT 82 % (BEAKER) (test iahu=003) LYMPHOCYTES RELATIVE PERCENT 8 % (BEAKER) (test imbj=282) MONOCYTES RELATIVE PERCENT 6 % (BEAKER) (test gxch=903) EOSINOPHILS RELATIVE PERCENT 3 % (BEAKER) (test uaon=253) BASOPHILS RELATIVE PERCENT 0 % (BEAKER) (test fgrs=320) NEUTROPHILS ABSOLUTE COUNT 3.82 K/ L 1.78-5.38 (BEAKER) (test ywha=659) LYMPHOCYTES ABSOLUTE COUNT 0.38 K/ L 1.32-3.57 (BEAKER) (test skhp=906) MONOCYTES ABSOLUTE COUNT 0.29 K/ L 0.30-0.82 (BEAKER) (test ryuq=248) EOSINOPHILS ABSOLUTE COUNT 0.13 K/ L 0.04-0.54 (BEAKER) (test bnkv=201) BASOPHILS ABSOLUTE COUNT 0.01 K/ L 0.01-0.08 (BEAKER) (test gpse=053) IMMATURE GRANULOCYTES-RELATIVE 0 % 0-1 PERCENT (BEAKER) (test hyzn=2249) [id number] 14:12:00 Test Item Value Reference Range Comments AMMONIA (BEAKER) (test ldmr=249) 34 mol/L 18-72 [id number] 14:09:00 Test Item Value Reference Range Comments PROTIME (BEAKER) (test heoj=535) 16.8 seconds 11.7-14.7 INR (BEAKER) (test fpge=733) 1.4 <=5.9 PARTIAL THROMBOPLASTIN TIME (BEAKER) (test 35.8 seconds 22.5-36.0 rnnt=961) RECOMMENDED COUMADIN/WARFARIN INR THERAPY RANGESSTANDARD DOSE: 2.0 - 3.0 Includes: PROPHYLAXIS forvenous thrombosis, systemic embolization; TREATMENT for venous thrombosis and/or pulmonary embolus.HIGH RISK: Target INR is 2.5-3.5 for patients with mechanical heart valves.CT, ABDOMEN, [id number] 17:43: 00Liver Prctocol-Triple PhaseFINAL REPORT TECHNIQUE: CT [...] right abdomen since 08/24/2016. Cholelithiasis. Signed: [facility] Verified Date/Time: 07/01/2018 17:43:59 Reading Location: [address] Radiology Reading Room [id number] 14:32:00 Test Item Value Reference Range Comments POC-CREATININE (BEAKER) 1.5 mg/dL 0.6-1.3 TESTED AT [facility] [address] [facility] (test blan=6340) [facility] [address] POC-EGFR (BEAKER) (test 46 mL/min/1.73M2 njjg=2157) CBC W/PLT COUNT & AUTO [id number] 14:08:00 Test Item Value Reference Range Comments WHITE BLOOD CELL COUNT (BEAKER) (test yxpe=979) 6.5 K/ L 3.5-10.5 RED BLOOD CELL COUNT (BEAKER) (test kwcw=782) 2.58 M/ L 4.63-6.08 HEMOGLOBIN (BEAKER) (test mfmk=482) 7.8 GM/DL 13.7-17.5 HEMATOCRIT (BEAKER) (test gohp=860) 25.5 % 40.1-51.0 MEAN CORPUSCULAR VOLUME (BEAKER) (test iwcz=008) 98.8 fL 79.0-92.2 MEAN CORPUSCULAR HEMOGLOBIN (BEAKER) (test 30.2 pg 25.7-32.2 mhro=633) MEAN CORPUSCULAR HEMOGLOBIN CONC (BEAKER) (test 30.6 GM/DL 32.3-36.5 srnp=137) RED CELL DISTRIBUTION WIDTH (BEAKER) (test 17.1 % 11.6-14.4 yfro=327) PLATELET COUNT (BEAKER) (test kzsn=855) 39 K/CU MM 150-450 MEAN PLATELET VOLUME (BEAKER) (test xket=699) 12.8 fL 9.4-12.4 NUCLEATED RED BLOOD CELLS (BEAKER) (test 0 /100 WBC 0-0 nqun=642) NEUTROPHILS RELATIVE PERCENT (BEAKER) (test 82 % dmrv=865) LYMPHOCYTES RELATIVE PERCENT (BEAKER) (test 7 % hnky=281) MONOCYTES RELATIVE PERCENT (BEAKER) (test 8 % juww=488) EOSINOPHILS RELATIVE PERCENT (BEAKER) (test 3 % bvgk=862) BASOPHILS RELATIVE PERCENT (BEAKER) (test 0 % wvjq=314) NEUTROPHILS ABSOLUTE COUNT (BEAKER) (test 5.37 K/ L 1.78-5.38 ebro=895) LYMPHOCYTES ABSOLUTE COUNT (BEAKER) (test 0.43 K/ L 1.32-3.57 tyby=387) MONOCYTES ABSOLUTE COUNT (BEAKER) (test msyz=166) 0.51 K/ L 0.30-0.82 EOSINOPHILS ABSOLUTE COUNT (BEAKER) (test 0.19 K/ L 0.04-0.54 srko=499) BASOPHILS ABSOLUTE COUNT (BEAKER) (test zyzt=038) 0.02 K/ L 0.01-0.08 IMMATURE GRANULOCYTES-RELATIVE PERCENT (BEAKER) 0 % 0-1 (test jeni=8570) COMPREHENSIVE METABOLIC [id number] 14:06:00 Test Item Value Reference Range Comments TOTAL PROTEIN (BEAKER) 6.3 gm/dL 6.0-8.3 (test cmlz=848) ALBUMIN (BEAKER) (test 2.8 g/dL 3.5-5.0 gqge=3082) ALKALINE PHOSPHATASE 157 U/L 40-150 (BEAKER) (test ldor=225) BILIRUBIN TOTAL (BEAKER) 1.4 mg/dL 0.2-1.2 (test inik=500) SODIUM (BEAKER) (test 137 meq/L 136-145 dadk=822) POTASSIUM (BEAKER) (test 3.7 meq/L 3.5-5.1 cpmf=026) CHLORIDE (BEAKER) (test 110 meq/L 98-107 lpff=083) CO2 (BEAKER) (test 20 meq/L 22-29 ccwa=169) BLOOD UREA NITROGEN 50 mg/dL 7-21 (BEAKER) (test wfct=756) CREATININE (BEAKER) (test 1.37 mg/dL 0.57-1.25 luha=560) GLUCOSE RANDOM (BEAKER) 128 mg/dL 70-105 (test iydr=343) CALCIUM (BEAKER) (test 8.7 mg/dL 8.4-10.2 feuj=719) AST (SGOT) (BEAKER) (test 41 U/L 5-34 vtfe=179) ALT (SGPT) (BEAKER) (test 29 U/L 6-55 eesj=009) EGFR (BEAKER) (test 52 mL/min/1.73 sq m ESTIMATED GFR IS NOT jcpk=9623) ACCURATE CREATININE CLEARANCE IN PREDICTING GLOMERULAR FILTRATION RATE. ESTIMATED GFR IS NOT APPLICABLE FOR DIALYSIS PATIENTS. BILIRUBIN, [id number] 14:06:00 Test Item Value Reference Range Comments BILIRUBIN DIRECT (BEAKER) (test ieuy=841) 0.9 mg/dL 0.1-0.5 PROTHROMBIN [id number] 13:50:00 Test Item Value Reference Range Comments PROTIME (BEAKER) (test guds=167) 17.3 seconds 11.7-14.7 INR (BEAKER) (test aibk=256) 1.4 <=5.9 RECOMMENDED COUMADIN/WARFARIN INR THERAPY RANGESSTANDARD DOSE: 2.0 - 3.0 Includes: PROPHYLAXIS forvenous thrombosis, systemic embolization; TREATMENT for venous thrombosis and/or pulmonary embolus.HIGH RISK: Target INR is 2.5-3.5 for patients with mechanical heart valves.URINALYSIS W/ REFLEX URINE [id number] 14:33:00 Test Item Value Reference Range Comments COLOR (BEAKER) (test izeg=278) Yellow CLARITY (BEAKER) (test efum=721) Clear SPECIFIC GRAVITY UA (BEAKER) (test ogkh=940) 1.012 1.001-1.035 PH UA (BEAKER) (test jlod=477) 5.5 5.0-8.0 PROTEIN UA (BEAKER) (test nrrk=130) 10 mg/dL Negative GLUCOSE UA (BEAKER) (test rpci=527) Negative Negative KETONES UA (BEAKER) (test piob=211) Negative Negative BILIRUBIN UA (BEAKER) (test rxwr=286) Negative Negative BLOOD UA (BEAKER) (test rnip=802) Small Negative NITRITE UA (BEAKER) (test hrpc=448) Negative Negative LEUKOCYTE ESTERASE UA (BEAKER) (test grnx=788) Negative Negative UROBILINOGEN UA (BEAKER) (test xayg=191) 0.2 mg/dL 0.2-1.0 RBC UA (BEAKER) (test enbo=345) 11 /HPF WBC UA (BEAKER) (test nvuj=226) 1 /HPF BACTERIA (BEAKER) (test ssyn=574) Rare SQUAMOUS EPITHELIAL (BEAKER) (test hxnd=035) < /HPF HYALINE CASTS (BEAKER) (test uogg=472) 1 /LPF SOURCE(BEAKER) (test ghvq=8722) POCT-GLUCOSE [id number] 13:22:00 Test Item Value Reference Range Comments POC-GLUCOSE METER (BEAKER) 266 mg/dL 70-110 TESTED AT [address] (test jkbl=9452) [facility] [address] VITAMIN B12 AND [id number] 09:11:00 Test Item Value Reference Range Comments VITAMIN B12 (BEAKER) (test sfqq=995) > pg/mL 213-816 FOLATE (BEAKER) (test ryic=518) 16.0 ng/mL >=7.0 [id number] 09:04:00 Test Item Value Reference Range Comments FERRITIN (BEAKER) (test btvf=331) 94 ng/mL 5-275 IRON, TIBC, % SAT. (WITHOUT FERRITIN)2018-05-31 08:19:00 Test Item Value Reference Range Comments IRON (BEAKER) (test tzxv=848) 35 ug/dL 40-160 TOTAL IRON BINDING CAPACITY (BEAKER) (test 298 ug/dL 250-450 byxr=424) IRON % SATURATION (2) (BEAKER) (test ytto=1658) 12 % 20-55 POCT-GLUCOSE [id number] 08:10:00 Test Item Value Reference Range Comments POC-GLUCOSE METER (BEAKER) 148 mg/dL 70-110 TESTED AT [address] (test rhrw=6393) [facility] [address] HEPATIC FUNCTION [id number] 04:30:00 Test Item Value Reference Range Comments TOTAL PROTEIN (BEAKER) (test bucy=160) 6.7 gm/dL 6.0-8.3 ALBUMIN (BEAKER) (test cdjl=3215) 3.0 g/dL 3.5-5.0 BILIRUBIN TOTAL (BEAKER) (test unjp=788) 1.8 mg/dL 0.2-1.2 BILIRUBIN DIRECT (BEAKER) (test stwz=182) 1.0 mg/dL 0.1-0.5 ALKALINE PHOSPHATASE (BEAKER) (test dwom=646) 118 U/L 40-150 AST (SGOT) (BEAKER) (test myxv=225) 48 U/L 5-34 ALT (SGPT) (BEAKER) (test vdsj=072) 31 U/L 6-55 BASIC METABOLIC [id number] 04:30:00 Test Item Value Reference Range Comments SODIUM (BEAKER) (test 140 meq/L 136-145 oouj=267) POTASSIUM (BEAKER) (test 4.3 meq/L 3.5-5.1 xdjy=320) CHLORIDE (BEAKER) (test 115 meq/L 98-107 owkj=184) CO2 (BEAKER) (test 20 meq/L 22-29 ojwu=487) BLOOD UREA NITROGEN 33 mg/dL 7-21 (BEAKER) (test vmqv=579) CREATININE (BEAKER) (test 1.30 mg/dL 0.57-1.25 qnev=037) GLUCOSE RANDOM (BEAKER) 154 mg/dL 70-105 (test fydk=006) CALCIUM (BEAKER) (test 8.5 mg/dL 8.4-10.2 savd=026) EGFR (BEAKER) (test 55 mL/min/1.73 sq m ESTIMATED GFR IS NOT ypvo=9435) ACCURATE CREATININE CLEARANCE IN PREDICTING GLOMERULAR FILTRATION RATE. ESTIMATED GFR IS NOT APPLICABLE FOR DIALYSIS PATIENTS. CBC (HEMOGRAM ONLY)2018-05-31 04:24:00 Test Item Value Reference Range Comments WHITE BLOOD CELL COUNT 5.7 K/ L 3.5-10.5 (BEAKER) (test qted=012) RED BLOOD CELL COUNT (BEAKER) 2.73 M/ L 4.63-6.08 (test dktr=828) HEMOGLOBIN (BEAKER) (test 8.8 GM/DL 13.7-17.5 smia=802) HEMATOCRIT (BEAKER) (test 27.8 % 40.1-51.0 zfom=348) MEAN CORPUSCULAR VOLUME 101.8 fL 79.0-92.2 (BEAKER) (test spoc=730) MEAN CORPUSCULAR HEMOGLOBIN 32.2 pg 25.7-32.2 (BEAKER) (test hhig=452) MEAN CORPUSCULAR HEMOGLOBIN 31.7 GM/DL 32.3-36.5 CONC (BEAKER) (test kobh=233) RED CELL DISTRIBUTION WIDTH 17.0 % 11.6-14.4 (BEAKER) (test bafe=715) PLATELET COUNT (BEAKER) (test 44 K/CU MM 150-450 cxyu=105) MEAN PLATELET VOLUME (BEAKER) 13.3 fL 9.4-12.4 Discordant MPV result (test gdic=397) compared to previous one; Clinical correlation required. NUCLEATED RED BLOOD CELLS 0 /100 WBC 0-0 (BEAKER) (test qllr=010) PROTHROMBIN [id number] 04:05:00 Test Item Value Reference Range Comments PROTIME (BEAKER) (test szrq=826) 17.4 seconds 11.7-14.7 INR (BEAKER) (test mtbs=358) 1.4 <=5.9 RECOMMENDED COUMADIN/WARFARIN INR THERAPY RANGESSTANDARD DOSE: 2.0 - 3.0 Includes: PROPHYLAXIS forvenous thrombosis, systemic embolization; TREATMENT for venous thrombosis and/or pulmonary embolus.HIGH RISK: Target INR is 2.5-3.5 for patients with mechanical heart valves.POCT-GLUCOSE [id number] 21:35:00 Test Item Value Reference Range Comments POC-GLUCOSE METER (BEAKER) 223 mg/dL 70-110 TESTED AT [address] (test dxto=0479) [facility] [address] POCT-GLUCOSE [id number] 17:44:00 Test Item Value Reference Range Comments POC-GLUCOSE METER (BEAKER) 214 mg/dL 70-110 TESTED AT [address] (test elub=9812) [place] [id number] POCT-GLUCOSE [id number] 12:40:00 Test Item Value Reference Range Comments POC-GLUCOSE METER (BEAKER) 331 mg/dL 70-110 Notified DIMA SIFUENTES/TESTED AT [facility] (test lxys=1327) [address] [place] [address] POCT-GLUCOSE [id number] 07:32:00 Test Item Value Reference Range Comments POC-GLUCOSE METER (BEAKER) 153 mg/dL 70-110 TESTED AT [address] (test jooo=0084) [facility] [address] [id number] 06:43:00 Test Item Value Reference Range Comments MAGNESIUM (BEAKER) (test tkam=653) 2.5 mg/dL 1.6-2.6 COMPREHENSIVE METABOLIC [id number] 06:43:00 Test Item Value Reference Range Comments TOTAL PROTEIN (BEAKER) 6.5 gm/dL 6.0-8.3 (test czil=771) ALBUMIN (BEAKER) (test 3.0 g/dL 3.5-5.0 erui=5696) ALKALINE PHOSPHATASE 107 U/L 40-150 (BEAKER) (test kolb=121) BILIRUBIN TOTAL (BEAKER) 2.3 mg/dL 0.2-1.2 (test dylu=222) SODIUM (BEAKER) (test 145 meq/L 136-145 vafj=273) POTASSIUM (BEAKER) (test 4.0 meq/L 3.5-5.1 ufpb=686) CHLORIDE (BEAKER) (test 117 meq/L 98-107 vunk=958) CO2 (BEAKER) (test 20 meq/L 22-29 bgpz=534) BLOOD UREA NITROGEN 41 mg/dL 7-21 (BEAKER) (test mosh=178) CREATININE (BEAKER) (test 1.29 mg/dL 0.57-1.25 pesn=034) GLUCOSE RANDOM (BEAKER) 122 mg/dL 70-105 (test snwl=915) CALCIUM (BEAKER) (test 9.0 mg/dL 8.4-10.2 kohq=915) AST (SGOT) (BEAKER) (test 50 U/L 5-34 cuzv=461) ALT (SGPT) (BEAKER) (test 34 U/L 6-55 gfwh=260) EGFR (BEAKER) (test 55 mL/min/1.73 sq m ESTIMATED GFR IS NOT nnky=5071) ACCURATE CREATININE CLEARANCE IN PREDICTING GLOMERULAR FILTRATION RATE. ESTIMATED GFR IS NOT APPLICABLE FOR DIALYSIS PATIENTS. Specimen slightly ictericPROTHROMBIN [id number] 06:13:00 Test Item Value Reference Range Comments PROTIME (BEAKER) (test xflt=627) 17.7 seconds 11.7-14.7 INR (BEAKER) (test ljww=090) 1.5 <=5.9 RECOMMENDED COUMADIN/WARFARIN INR THERAPY RANGESSTANDARD DOSE: 2.0 - 3.0 Includes: PROPHYLAXIS forvenous thrombosis, systemic embolization; TREATMENT for venous thrombosis and/or pulmonary embolus.HIGH RISK: Target INR is 2.5-3.5 for patients with mechanical heart valves.CBC W/PLT COUNT & AUTO [id number] 06:12:00 Test Item Value Reference Range Comments WHITE BLOOD CELL COUNT (BEAKER) (test luea=588) 4.3 K/ L 3.5-10.5 RED BLOOD CELL COUNT (BEAKER) (test vmqg=793) 2.74 M/ L 4.63-6.08 HEMOGLOBIN (BEAKER) (test scla=131) 8.8 GM/DL 13.7-17.5 HEMATOCRIT (BEAKER) (test tjgh=969) 27.9 % 40.1-51.0 MEAN CORPUSCULAR VOLUME (BEAKER) (test zkji=157) 101.8 fL 79.0-92.2 MEAN CORPUSCULAR HEMOGLOBIN (BEAKER) (test 32.1 pg 25.7-32.2 ibpt=936) MEAN CORPUSCULAR HEMOGLOBIN CONC (BEAKER) (test 31.5 GM/DL 32.3-36.5 mpgh=126) RED CELL DISTRIBUTION WIDTH (BEAKER) (test 16.9 % 11.6-14.4 zdjt=958) PLATELET COUNT (BEAKER) (test zrco=909) 36 K/CU MM 150-450 MEAN PLATELET VOLUME (BEAKER) (test hqvw=587) 13.0 fL 9.4-12.4 NUCLEATED RED BLOOD CELLS (BEAKER) (test 0 /100 WBC 0-0 bkjn=954) NEUTROPHILS RELATIVE PERCENT (BEAKER) (test 75 % slxx=173) LYMPHOCYTES RELATIVE PERCENT (BEAKER) (test 12 % jxrd=741) MONOCYTES RELATIVE PERCENT (BEAKER) (test 7 % ycpc=400) EOSINOPHILS RELATIVE PERCENT (BEAKER) (test 6 % pvow=952) BASOPHILS RELATIVE PERCENT (BEAKER) (test 1 % trpp=566) NEUTROPHILS ABSOLUTE COUNT (BEAKER) (test 3.27 K/ L 1.78-5.38 azbe=146) LYMPHOCYTES ABSOLUTE COUNT (BEAKER) (test 0.50 K/ L 1.32-3.57 oegc=850) MONOCYTES ABSOLUTE COUNT (BEAKER) (test zcmp=353) 0.28 K/ L 0.30-0.82 EOSINOPHILS ABSOLUTE COUNT (BEAKER) (test 0.26 K/ L 0.04-0.54 acpm=411) BASOPHILS ABSOLUTE COUNT (BEAKER) (test dags=595) 0.02 K/ L 0.01-0.08 IMMATURE GRANULOCYTES-RELATIVE PERCENT (BEAKER) 0 % 0-1 (test weuu=6847) POCT-GLUCOSE [id number] 00:36:00 Test Item Value Reference Range Comments POC-GLUCOSE METER (BEAKER) 137 mg/dL 70-110 TESTED AT [facility] [address] (test aghy=2400) [place] [address] CREATINE KINASE (CK)2018-05-29 15:54:00 Test Item Value Reference Range Comments CREATINE KINASE TOTAL (BEAKER) (test ylxs=770) 112 U/L 29-200 TROPONIN [id number] 15:36:00 Test Item Value Reference Range Comments TROPONIN I (BEAKER) (test sgbs=140) 0.01 ng/mL 0.00-0.03 B-TYPE NATRIURETIC FACTOR (BNP)2018-05-29 15:33:00 Test Item Value Reference Range Comments B-TYPE NATRIURETIC PEPTIDE (BEAKER) (test 314 pg/mL 0-100 pigo=093) [id number] 15:30:00 Test Item Value Reference Range Comments MAGNESIUM (BEAKER) (test xtdc=562) 2.3 mg/dL 1.6-2.6 BASIC METABOLIC [id number] 15:30:00 Test Item Value Reference Range Comments SODIUM (BEAKER) (test 138 meq/L 136-145 otia=138) POTASSIUM (BEAKER) (test 4.5 meq/L 3.5-5.1 kcxq=242) CHLORIDE (BEAKER) (test 110 meq/L 98-107 zoth=985) CO2 (BEAKER) (test 20 meq/L 22-29 qhaz=076) BLOOD UREA NITROGEN 44 mg/dL 7-21 (BEAKER) (test hzfz=933) CREATININE (BEAKER) (test 1.44 mg/dL 0.57-1.25 mfzo=969) GLUCOSE RANDOM (BEAKER) 206 mg/dL 70-105 (test pelu=198) CALCIUM (BEAKER) (test 8.5 mg/dL 8.4-10.2 xltq=965) EGFR (BEAKER) (test 49 mL/min/1.73 sq m ESTIMATED GFR IS NOT nkfg=4306) ACCURATE CREATININE CLEARANCE IN PREDICTING GLOMERULAR FILTRATION RATE. ESTIMATED GFR IS NOT APPLICABLE FOR DIALYSIS PATIENTS. HEPATIC FUNCTION [id number] 15:30:00 Test Item Value Reference Range Comments TOTAL PROTEIN (BEAKER) (test bspr=693) 6.4 gm/dL 6.0-8.3 ALBUMIN (BEAKER) (test pzpg=1806) 2.9 g/dL 3.5-5.0 BILIRUBIN TOTAL (BEAKER) (test sagu=611) 1.8 mg/dL 0.2-1.2 BILIRUBIN DIRECT (BEAKER) (test kqmi=123) 1.1 mg/dL 0.1-0.5 ALKALINE PHOSPHATASE (BEAKER) (test inkd=852) 120 U/L 40-150 AST (SGOT) (BEAKER) (test ansl=925) 47 U/L 5-34 ALT (SGPT) (BEAKER) (test yhab=413) 32 U/L 6-55 [id number] 15:26:00 Test Item Value Reference Range Comments AMMONIA (BEAKER) (test ygxa=355) 72 mol/L 18-72 [id number] 15:12:00 Test Item Value Reference Range Comments PROTIME (BEAKER) (test swgq=931) 17.7 seconds 11.7-14.7 INR (BEAKER) (test emnz=667) 1.5 <=5.9 PARTIAL THROMBOPLASTIN TIME (BEAKER) (test 37.6 seconds 22.5-36.0 jfjh=159) RECOMMENDED COUMADIN/WARFARIN INR THERAPY RANGESSTANDARD DOSE: 2.0 - 3.0 Includes: PROPHYLAXIS forvenous thrombosis, systemic embolization; TREATMENT for venous thrombosis and/or pulmonary embolus.HIGH RISK: Target INR is 2.5-3.5 for patients with mechanical heart valves.CT, BRAIN, WITHOUT [id number] 15:06:00Reason for exam:->ALTERED MENTAL STATUSWhat is the [...] Castellanos Verified Date/Time: 05/29/2018 15:06:54 Reading Location: [facility] Radiology Reading Room Electronically signed by: BALTAZAR CASTELLANOS M.D. on 03:06 PMCBC W/PLT COUNT & AUTO [id number] 15:04:00 Test Item Value Reference Range Comments WHITE BLOOD CELL COUNT (BEAKER) (test goof=349) 4.0 K/ L 3.5-10.5 RED BLOOD CELL COUNT (BEAKER) (test hmbj=180) 2.55 M/ L 4.63-6.08 HEMOGLOBIN (BEAKER) (test gutk=105) 8.1 GM/DL 13.7-17.5 HEMATOCRIT (BEAKER) (test pgvz=758) 25.9 % 40.1-51.0 MEAN CORPUSCULAR VOLUME (BEAKER) (test lyaw=519) 101.6 fL 79.0-92.2 MEAN CORPUSCULAR HEMOGLOBIN (BEAKER) (test 31.8 pg 25.7-32.2 siit=297) MEAN CORPUSCULAR HEMOGLOBIN CONC (BEAKER) (test 31.3 GM/DL 32.3-36.5 axic=815) RED CELL DISTRIBUTION WIDTH (BEAKER) (test 16.6 % 11.6-14.4 mdov=029) PLATELET COUNT (BEAKER) (test wibf=612) 27 K/CU MM 150-450 MEAN PLATELET VOLUME (BEAKER) (test htne=290) 12.2 fL 9.4-12.4 NUCLEATED RED BLOOD CELLS (BEAKER) (test 0 /100 WBC 0-0 kqtu=851) NEUTROPHILS RELATIVE PERCENT (BEAKER) (test 85 % meqj=175) LYMPHOCYTES RELATIVE PERCENT (BEAKER) (test 7 % oneu=565) MONOCYTES RELATIVE PERCENT (BEAKER) (test 6 % zyjo=062) EOSINOPHILS RELATIVE PERCENT (BEAKER) (test 1 % zhtx=384) BASOPHILS RELATIVE PERCENT (BEAKER) (test 0 % twzz=268) NEUTROPHILS ABSOLUTE COUNT (BEAKER) (test 3.38 K/ L 1.78-5.38 wnvm=653) LYMPHOCYTES ABSOLUTE COUNT (BEAKER) (test 0.28 K/ L 1.32-3.57 dygf=349) MONOCYTES ABSOLUTE COUNT (BEAKER) (test iibv=568) 0.22 K/ L 0.30-0.82 EOSINOPHILS ABSOLUTE COUNT (BEAKER) (test 0.05 K/ L 0.04-0.54 wbnp=645) BASOPHILS ABSOLUTE COUNT (BEAKER) (test smrs=519) 0.01 K/ L 0.01-0.08 IMMATURE GRANULOCYTES-RELATIVE PERCENT (BEAKER) 1 % 0-1 (test dmkd=0089) POCT-GLUCOSE [id number] 14:20:00 Test Item Value Reference Range Comments POC-GLUCOSE METER (BEAKER) 221 mg/dL 70-110 TESTED AT [address] (test troy=2783) [place] [address] BLOOD [id number] 00:00:00 Test Item Value Reference Range Comments CULTURE (BEAKER) (test ikts=8829) No growth in 5 days BLOOD [id number] 00:00:00 Test Item Value Reference Range Comments CULTURE (BEAKER) (test zeep=6458) No growth in 5 days POCT-GLUCOSE [id number] 11:53:00 Test Item Value Reference Range Comments POC-GLUCOSE METER (BEAKER) 259 mg/dL 70-110 TESTED AT [address] (test shxv=3090) [place] [address] HEMOGLOBIN [id number] 09:43:00 Test Item Value Reference Range Comments HEMOGLOBIN A1C (BEAKER) (test csld=291) 5.9 % 4.3-6.1 POCT-GLUCOSE [id number] 08:14:00 Test Item Value Reference Range Comments POC-GLUCOSE METER (BEAKER) 122 mg/dL 70-110 TESTED AT [address] (test pors=5528) [place] [address] [id number] 07:04:00 Test Item Value Reference Range Comments MAGNESIUM (BEAKER) (test uvlq=262) 2.3 mg/dL 1.6-2.6 BASIC METABOLIC [id number] 07:04:00 Test Item Value Reference Range Comments SODIUM (BEAKER) (test 140 meq/L 136-145 ljyd=682) POTASSIUM (BEAKER) (test 4.0 meq/L 3.5-5.1 zhya=491) CHLORIDE (BEAKER) (test 113 meq/L 98-107 eera=701) CO2 (BEAKER) (test 19 meq/L 22-29 wfav=094) BLOOD UREA NITROGEN 31 mg/dL 7-21 (BEAKER) (test tfcl=615) CREATININE (BEAKER) (test 1.27 mg/dL 0.57-1.25 bnej=716) GLUCOSE RANDOM (BEAKER) 75 mg/dL 70-105 (test nkgs=383) CALCIUM (BEAKER) (test 9.1 mg/dL 8.4-10.2 tlca=702) EGFR (BEAKER) (test 56 mL/min/1.73 sq m ESTIMATED GFR IS NOT vxwj=0927) ACCURATE CREATININE CLEARANCE IN PREDICTING GLOMERULAR FILTRATION RATE. ESTIMATED GFR IS NOT APPLICABLE FOR DIALYSIS PATIENTS. Specimen slightly ictericHEPATIC FUNCTION [id number] 07:04:00 Test Item Value Reference Range Comments TOTAL PROTEIN (BEAKER) (test erxu=260) 6.5 gm/dL 6.0-8.3 ALBUMIN (BEAKER) (test dabr=6105) 3.1 g/dL 3.5-5.0 BILIRUBIN TOTAL (BEAKER) (test tydz=928) 2.1 mg/dL 0.2-1.2 BILIRUBIN DIRECT (BEAKER) (test msqv=230) 1.0 mg/dL 0.1-0.5 ALKALINE PHOSPHATASE (BEAKER) (test arww=467) 111 U/L 40-150 AST (SGOT) (BEAKER) (test zupu=446) 52 U/L 5-34 ALT (SGPT) (BEAKER) (test malw=852) 29 U/L 6-55 Specimen slightly ictericPROTHROMBIN [id number] 06:38:00 Test Item Value Reference Range Comments PROTIME (BEAKER) (test ovsz=862) 17.6 seconds 11.7-14.7 INR (BEAKER) (test kumr=817) 1.5 <=5.9 RECOMMENDED COUMADIN/WARFARIN INR THERAPY RANGESSTANDARD DOSE: 2.0 - 3.0 Includes: PROPHYLAXIS forvenous thrombosis, systemic embolization; TREATMENT for venous thrombosis and/or pulmonary embolus.HIGH RISK: Target INR is 2.5-3.5 for patients with mechanical heart valves.CBC (HEMOGRAM ONLY)2018-04-25 06:27:00 Test Item Value Reference Range Comments WHITE BLOOD CELL COUNT (BEAKER) (test qmtz=499) 3.9 K/ L 3.5-10.5 RED BLOOD CELL COUNT (BEAKER) (test qxej=824) 2.64 M/ L 4.63-6.08 HEMOGLOBIN (BEAKER) (test lqgt=047) 8.5 GM/DL 13.7-17.5 HEMATOCRIT (BEAKER) (test vavs=522) 26.9 % 40.1-51.0 MEAN CORPUSCULAR VOLUME (BEAKER) (test zkfd=263) 101.9 fL 79.0-92.2 MEAN CORPUSCULAR HEMOGLOBIN (BEAKER) (test 32.2 pg 25.7-32.2 ertb=584) MEAN CORPUSCULAR HEMOGLOBIN CONC (BEAKER) (test 31.6 GM/DL 32.3-36.5 fqix=256) RED CELL DISTRIBUTION WIDTH (BEAKER) (test 17.7 % 11.6-14.4 ztfo=421) PLATELET COUNT (BEAKER) (test jogt=145) 42 K/CU MM 150-450 MEAN PLATELET VOLUME (BEAKER) (test rxys=762) 12.9 fL 9.4-12.4 NUCLEATED RED BLOOD CELLS (BEAKER) (test 0 /100 WBC 0-0 wtky=159) POCT-GLUCOSE [id number] 22:07:00 Test Item Value Reference Range Comments POC-GLUCOSE METER (BEAKER) 211 mg/dL 70-110 TESTED AT [address] (test owtp=7221) [facility] [address] POCT-GLUCOSE [id number] 18:31:00 Test Item Value Reference Range Comments POC-GLUCOSE METER (BEAKER) 136 mg/dL 70-110 TESTED AT [address] (test srpe=8072) [facility] [address] POCT-GLUCOSE [id number] 16:06:00 Test Item Value Reference Range Comments POC-GLUCOSE METER (BEAKER) 236 mg/dL 70-110 TESTED AT [address] (test zyct=0836) [place] [id number] PROTHROMBIN [id number] 02:28:00 Test Item Value Reference Range Comments PROTIME (BEAKER) (test xfgp=027) 18.3 seconds 11.7-14.7 INR (BEAKER) (test srcw=184) 1.5 <=5.9 RECOMMENDED COUMADIN/WARFARIN INR THERAPY RANGESSTANDARD DOSE: 2.0 - 3.0 Includes: PROPHYLAXIS forvenous thrombosis, systemic embolization; TREATMENT for venous thrombosis and/or pulmonary embolus.HIGH RISK: Target INR is 2.5-3.5 for patients with mechanical heart valves.[id number] 02:20:00 Test Item Value Reference Range Comments MAGNESIUM (BEAKER) (test fndy=023) 2.4 mg/dL 1.6-2.6 BASIC METABOLIC [id number] 02:20:00 Test Item Value Reference Range Comments SODIUM (BEAKER) (test 141 meq/L 136-145 nrod=004) POTASSIUM (BEAKER) (test 3.7 meq/L 3.5-5.1 dvac=010) CHLORIDE (BEAKER) (test 112 meq/L 98-107 tsca=000) CO2 (BEAKER) (test 22 meq/L 22-29 oiww=541) BLOOD UREA NITROGEN 41 mg/dL 7-21 (BEAKER) (test svzy=953) CREATININE (BEAKER) (test 1.26 mg/dL 0.57-1.25 sjex=467) GLUCOSE RANDOM (BEAKER) 124 mg/dL 70-105 (test suzv=249) CALCIUM (BEAKER) (test 8.5 mg/dL 8.4-10.2 flco=745) EGFR (BEAKER) (test 57 mL/min/1.73 sq m ESTIMATED GFR IS NOT naeo=8725) ACCURATE CREATININE CLEARANCE IN PREDICTING GLOMERULAR FILTRATION RATE. ESTIMATED GFR IS NOT APPLICABLE FOR DIALYSIS PATIENTS. HEPATIC FUNCTION [id number] 02:20:00 Test Item Value Reference Range Comments TOTAL PROTEIN (BEAKER) (test vghv=668) 5.6 gm/dL 6.0-8.3 ALBUMIN (BEAKER) (test myhf=2367) 2.6 g/dL 3.5-5.0 BILIRUBIN TOTAL (BEAKER) (test amof=475) 2.0 mg/dL 0.2-1.2 BILIRUBIN DIRECT (BEAKER) (test togu=680) 0.9 mg/dL 0.1-0.5 ALKALINE PHOSPHATASE (BEAKER) (test elqi=718) 114 U/L 40-150 AST (SGOT) (BEAKER) (test hkwi=351) 41 U/L 5-34 ALT (SGPT) (BEAKER) (test ftyi=525) 25 U/L 6-55 CBC (HEMOGRAM ONLY)2018-04-24 02:05:00 Test Item Value Reference Range Comments WHITE BLOOD CELL COUNT (BEAKER) (test ykpt=406) 3.6 K/ L 3.5-10.5 RED BLOOD CELL COUNT (BEAKER) (test aqgf=713) 2.39 M/ L 4.63-6.08 HEMOGLOBIN (BEAKER) (test tbxd=679) 7.8 GM/DL 13.7-17.5 HEMATOCRIT (BEAKER) (test kdxr=487) 23.8 % 40.1-51.0 MEAN CORPUSCULAR VOLUME (BEAKER) (test ogpo=641) 99.6 fL 79.0-92.2 MEAN CORPUSCULAR HEMOGLOBIN (BEAKER) (test 32.6 pg 25.7-32.2 bvhp=313) MEAN CORPUSCULAR HEMOGLOBIN CONC (BEAKER) (test 32.8 GM/DL 32.3-36.5 ouvp=727) RED CELL DISTRIBUTION WIDTH (BEAKER) (test 17.4 % 11.6-14.4 ipad=845) PLATELET COUNT (BEAKER) (test ggch=520) 38 K/CU MM 150-450 MEAN PLATELET VOLUME (BEAKER) (test fezq=064) 12.5 fL 9.4-12.4 NUCLEATED RED BLOOD CELLS (BEAKER) (test 0 /100 WBC 0-0 hhtu=655) POCT-GLUCOSE [id number] 22:50:00 Test Item Value Reference Range Comments POC-GLUCOSE METER (BEAKER) 146 mg/dL 70-110 TESTED AT [facility] [address] [facility] (test nnyj=0506) [facility] [address] CT, BRAIN, WITHOUT [id number] 19:45:00Reason for exam:->headacheWhat is the patient's sedation [...] Castellanos Verified Date/Time: 04/23/2018 19:45:43 Reading Location: [facility] Radiology Reading Room URINALYSIS W/ [id number] 19:36:00 Test Item Value Reference Range Comments COLOR (BEAKER) (test bkta=397) Light Yellow CLARITY (BEAKER) (test cybe=562) Clear SPECIFIC GRAVITY UA (BEAKER) (test ykdm=949) 1.006 1.001-1.035 PH UA (BEAKER) (test fqza=004) 6.0 5.0-8.0 PROTEIN UA (BEAKER) (test lply=200) Negative Negative GLUCOSE UA (BEAKER) (test xxqh=494) Negative Negative KETONES UA (BEAKER) (test uevi=174) Negative Negative BILIRUBIN UA (BEAKER) (test fxdl=317) Negative Negative BLOOD UA (BEAKER) (test jtpb=566) Small Negative NITRITE UA (BEAKER) (test tzrw=509) Negative Negative LEUKOCYTE ESTERASE UA (BEAKER) (test arxb=267) Negative Negative UROBILINOGEN UA (BEAKER) (test jgcl=808) 0.2 mg/dL 0.2-1.0 RBC UA (BEAKER) (test ckqt=844) 2 /HPF WBC UA (BEAKER) (test dvgc=828) < /HPF BACTERIA (BEAKER) (test fely=347) Rare SOURCE(BEAKER) (test zwlz=0164) [id number] 19:01:00 Test Item Value Reference Range Comments PHOSPHORUS (BEAKER) (test fsmj=064) 3.0 mg/dL 2.3-4.7 BASIC METABOLIC [id number] 19:01:00 Test Item Value Reference Range Comments SODIUM (BEAKER) (test 137 meq/L 136-145 uxgj=945) POTASSIUM (BEAKER) (test 4.1 meq/L 3.5-5.1 kuii=995) CHLORIDE (BEAKER) (test 108 meq/L 98-107 qcmh=757) CO2 (BEAKER) (test 21 meq/L 22-29 mgrs=927) BLOOD UREA NITROGEN 42 mg/dL 7-21 (BEAKER) (test qmaf=322) CREATININE (BEAKER) (test 1.43 mg/dL 0.57-1.25 yilt=178) GLUCOSE RANDOM (BEAKER) 169 mg/dL 70-105 (test iqfp=335) CALCIUM (BEAKER) (test 8.7 mg/dL 8.4-10.2 xyrl=549) EGFR (BEAKER) (test 49 mL/min/1.73 sq m ESTIMATED GFR IS NOT npga=0109) ACCURATE CREATININE CLEARANCE IN PREDICTING GLOMERULAR FILTRATION RATE. ESTIMATED GFR IS NOT APPLICABLE FOR DIALYSIS PATIENTS. Specimen slightly ictericHEPATIC FUNCTION [id number] 19:01:00 Test Item Value Reference Range Comments TOTAL PROTEIN (BEAKER) (test tbmw=016) 6.6 gm/dL 6.0-8.3 ALBUMIN (BEAKER) (test ptjd=2471) 3.0 g/dL 3.5-5.0 BILIRUBIN TOTAL (BEAKER) (test dpub=344) 2.1 mg/dL 0.2-1.2 BILIRUBIN DIRECT (BEAKER) (test gpde=201) 1.1 mg/dL 0.1-0.5 ALKALINE PHOSPHATASE (BEAKER) (test tkde=334) 142 U/L 40-150 AST (SGOT) (BEAKER) (test febi=664) 47 U/L 5-34 ALT (SGPT) (BEAKER) (test slur=365) 28 U/L 6-55 Specimen slightly [id number] 19:01:00 Test Item Value Reference Range Comments LIPASE (BEAKER) (test cuge=960) 70 U/L 8-78 Specimen slightly ictericRAD, CHEST, PA OR AP, 1 [id number] 18:59:00Reason for exam:->chest painShould this be performed at the bedside?->YesFINAL REPORT Chest dated 04/23/2018 COMPARISON: February 19, 2018 Clinical Information: chest pain Comment: Heart is upper limits of normal in size. Pulmonary vasculature is indistinct. Interstitial disease is seen bilaterally suggestive pulmonary edema. No pleural effusion or pneumothorax is seen. Impression: No interval change. Signed: Smith Palomino Verified Date /Time: 04/23/2018 18:59:55 Reading Location: [address] Consult Reading Room PT/ [id number] 18:57:00 Test Item Value Reference Range Comments PROTIME (BEAKER) (test ooyv=293) 17.3 seconds 11.7-14.7 INR (BEAKER) (test ucmf=235) 1.4 <=5.9 PARTIAL THROMBOPLASTIN TIME (BEAKER) (test 36.0 seconds 22.5-36.0 kjrk=905) RECOMMENDED COUMADIN/WARFARIN INR THERAPY RANGESSTANDARD DOSE: 2.0 - 3.0 Includes: PROPHYLAXIS forvenous thrombosis, systemic embolization; TREATMENT for venous thrombosis and/or pulmonary embolus.HIGH RISK: Target INR is 2.5-3.5 for patients with mechanical heart valves.[id number] 18:52:00 Test Item Value Reference Range Comments AMMONIA (BEAKER) (test tnqo=221) 45 mol/L 18-72 CBC W/PLT COUNT & AUTO [id number] 18:47:00 Test Item Value Reference Range Comments WHITE BLOOD CELL COUNT (BEAKER) (test gdvs=549) 4.2 K/ L 3.5-10.5 RED BLOOD CELL COUNT (BEAKER) (test ndhu=179) 2.80 M/ L 4.63-6.08 HEMOGLOBIN (BEAKER) (test pzlb=413) 8.9 GM/DL 13.7-17.5 HEMATOCRIT (BEAKER) (test kypa=446) 27.7 % 40.1-51.0 MEAN CORPUSCULAR VOLUME (BEAKER) (test gonn=318) 98.9 fL 79.0-92.2 MEAN CORPUSCULAR HEMOGLOBIN (BEAKER) (test 31.8 pg 25.7-32.2 ggyk=334) MEAN CORPUSCULAR HEMOGLOBIN CONC (BEAKER) (test 32.1 GM/DL 32.3-36.5 zkyy=850) RED CELL DISTRIBUTION WIDTH (BEAKER) (test 17.2 % 11.6-14.4 pusv=224) PLATELET COUNT (BEAKER) (test djtf=000) 35 K/CU MM 150-450 MEAN PLATELET VOLUME (BEAKER) (test urxz=952) 11.8 fL 9.4-12.4 NUCLEATED RED BLOOD CELLS (BEAKER) (test 0 /100 WBC 0-0 vlyy=783) NEUTROPHILS RELATIVE PERCENT (BEAKER) (test 79 % ugww=716) LYMPHOCYTES RELATIVE PERCENT (BEAKER) (test 9 % lxkx=436) MONOCYTES RELATIVE PERCENT (BEAKER) (test 7 % nuce=535) EOSINOPHILS RELATIVE PERCENT (BEAKER) (test 3 % ocft=562) BASOPHILS RELATIVE PERCENT (BEAKER) (test 1 % ubzr=920) NEUTROPHILS ABSOLUTE COUNT (BEAKER) (test 3.32 K/ L 1.78-5.38 ntwy=774) LYMPHOCYTES ABSOLUTE COUNT (BEAKER) (test 0.39 K/ L 1.32-3.57 pgoy=580) MONOCYTES ABSOLUTE COUNT (BEAKER) (test kkww=047) 0.31 K/ L 0.30-0.82 EOSINOPHILS ABSOLUTE COUNT (BEAKER) (test 0.14 K/ L 0.04-0.54 rhkm=560) BASOPHILS ABSOLUTE COUNT (BEAKER) (test pjnm=139) 0.02 K/ L 0.01-0.08 IMMATURE GRANULOCYTES-RELATIVE PERCENT (BEAKER) 0 % 0-1 (test wedu=6553) ALPHA FETOPROTEIN (AFP), TUMOR [id number] 14:39:00 Test Item Value Reference Range Comments ALPHA-FETOPROTEIN (BEAKER) (test wxkz=1039) < ng/mL <10.0 COMPREHENSIVE METABOLIC [id number] 14:00:00 Test Item Value Reference Range Comments TOTAL PROTEIN (BEAKER) 6.7 gm/dL 6.0-8.3 (test zfzm=633) ALBUMIN (BEAKER) (test 3.1 g/dL 3.5-5.0 nrsu=5987) ALKALINE PHOSPHATASE 144 U/L 40-150 (BEAKER) (test quvx=317) BILIRUBIN TOTAL (BEAKER) 2.1 mg/dL 0.2-1.2 (test iszs=730) SODIUM (BEAKER) (test 137 meq/L 136-145 itwa=985) POTASSIUM (BEAKER) (test 3.8 meq/L 3.5-5.1 wgql=749) CHLORIDE (BEAKER) (test 105 meq/L 98-107 fuoy=320) CO2 (BEAKER) (test 26 meq/L 22-29 nsxb=853) BLOOD UREA NITROGEN 43 mg/dL 7-21 (BEAKER) (test utbq=669) CREATININE (BEAKER) (test 1.57 mg/dL 0.57-1.25 zsmi=030) GLUCOSE RANDOM (BEAKER) 222 mg/dL 70-105 (test aisr=768) CALCIUM (BEAKER) (test 8.9 mg/dL 8.4-10.2 ozqo=039) AST (SGOT) (BEAKER) (test 43 U/L 5-34 emlk=138) ALT (SGPT) (BEAKER) (test 27 U/L 6-55 busn=542) EGFR (BEAKER) (test 44 mL/min/1.73 sq m ESTIMATED GFR IS NOT eoap=6471) ACCURATE CREATININE CLEARANCE IN PREDICTING GLOMERULAR FILTRATION RATE. ESTIMATED GFR IS NOT APPLICABLE FOR DIALYSIS PATIENTS. BILIRUBIN, [id number] 14:00:00 Test Item Value Reference Range Comments BILIRUBIN DIRECT (BEAKER) (test fdzd=289) 1.1 mg/dL 0.1-0.5 CBC W/PLT COUNT & AUTO [id number] 13:53:00 Test Item Value Reference Range Comments WHITE BLOOD CELL COUNT 5.2 K/ L 3.5-10.5 (BEAKER) (test dkok=112) RED BLOOD CELL COUNT (BEAKER) 2.93 M/ L 4.63-6.08 (test ldjp=376) HEMOGLOBIN (BEAKER) (test 9.3 GM/DL 13.7-17.5 srcv=640) HEMATOCRIT (BEAKER) (test 29.5 % 40.1-51.0 rodq=279) MEAN CORPUSCULAR VOLUME 100.7 fL 79.0-92.2 (BEAKER) (test zytb=269) MEAN CORPUSCULAR HEMOGLOBIN 31.7 pg 25.7-32.2 (BEAKER) (test frzd=498) MEAN CORPUSCULAR HEMOGLOBIN 31.5 GM/DL 32.3-36.5 CONC (BEAKER) (test lfja=095) RED CELL DISTRIBUTION WIDTH 17.4 % 11.6-14.4 (BEAKER) (test myjr=211) PLATELET COUNT (BEAKER) (test 34 K/CU MM 150-450 uwrm=707) MEAN PLATELET VOLUME (BEAKER) fL 9.4-12.4 Unable to report due to (test gikx=306) abnormal Platelet population distribution. NUCLEATED RED BLOOD CELLS 0 /100 WBC 0-0 (BEAKER) (test ddjq=118) NEUTROPHILS RELATIVE PERCENT 77 % (BEAKER) (test hhyz=348) LYMPHOCYTES RELATIVE PERCENT 7 % (BEAKER) (test ozbo=989) MONOCYTES RELATIVE PERCENT 9 % (BEAKER) (test efuc=962) EOSINOPHILS RELATIVE PERCENT 6 % (BEAKER) (test ojcz=359) BASOPHILS RELATIVE PERCENT 0 % (BEAKER) (test ouod=386) NEUTROPHILS ABSOLUTE COUNT 3.98 K/ L 1.78-5.38 (BEAKER) (test eine=428) LYMPHOCYTES ABSOLUTE COUNT 0.38 K/ L 1.32-3.57 (BEAKER) (test dlqs=201) MONOCYTES ABSOLUTE COUNT 0.46 K/ L 0.30-0.82 (BEAKER) (test pkue=685) EOSINOPHILS ABSOLUTE COUNT 0.32 K/ L 0.04-0.54 (BEAKER) (test ogvj=540) BASOPHILS ABSOLUTE COUNT 0.01 K/ L 0.01-0.08 (BEAKER) (test wuco=685) IMMATURE GRANULOCYTES-RELATIVE 0 % 0-1 PERCENT (BEAKER) (test rfli=4907) PROTHROMBIN [id number] 13:41:00 Test Item Value Reference Range Comments PROTIME (BEAKER) (test qycb=010) 16.9 seconds 11.7-14.7 INR (BEAKER) (test spni=821) 1.4 <=5.9 RECOMMENDED COUMADIN/WARFARIN INR THERAPY RANGESSTANDARD DOSE: 2.0 - 3.0 Includes: PROPHYLAXIS forvenous thrombosis, systemic embolization; TREATMENT for venous thrombosis and/or pulmonary embolus.HIGH RISK: Target INR is 2.5-3.5 for patients with mechanical heart valves.BLOOD [id number] 00:00:00 Test Item Value Reference Range Comments CULTURE (BEAKER) (test kwup=3044) No growth in 5 days BLOOD [id number] 00:00:00 Test Item Value Reference Range Comments CULTURE (BEAKER) (test qxyx=3366) No growth in 5 days POCT-GLUCOSE [id number] 12:19:00 Test Item Value Reference Range Comments POC-GLUCOSE METER (BEAKER) 224 mg/dL 70-110 TESTED AT [facility] [address] [place] [address] (test umsj=8722) [facility] [address] POCT-GLUCOSE [id number] 08:04:00 Test Item Value Reference Range Comments POC-GLUCOSE METER (BEAKER) 112 mg/dL 70-110 TESTED AT [address] (test tuln=5817) [facility] [address] COMPREHENSIVE METABOLIC [id number] 06:19:00 Test Item Value Reference Range Comments TOTAL PROTEIN (BEAKER) 6.1 gm/dL 6.0-8.3 (test wnav=191) ALBUMIN (BEAKER) (test 2.9 g/dL 3.5-5.0 nvyf=6793) ALKALINE PHOSPHATASE 102 U/L 40-150 (BEAKER) (test zbqt=807) BILIRUBIN TOTAL (BEAKER) 1.7 mg/dL 0.2-1.2 (test sldv=359) SODIUM (BEAKER) (test 139 meq/L 136-145 gpvr=710) POTASSIUM (BEAKER) (test 3.7 meq/L 3.5-5.1 vvek=317) CHLORIDE (BEAKER) (test 107 meq/L 98-107 fahj=737) CO2 (BEAKER) (test 23 meq/L 22-29 tgrh=177) BLOOD UREA NITROGEN 40 mg/dL 7-21 (BEAKER) (test eajf=267) CREATININE (BEAKER) (test 1.65 mg/dL 0.57-1.25 syhg=708) GLUCOSE RANDOM (BEAKER) 144 mg/dL 70-105 (test ojzg=439) CALCIUM (BEAKER) (test 9.0 mg/dL 8.4-10.2 gwco=029) AST (SGOT) (BEAKER) (test 45 U/L 5-34 cizo=969) ALT (SGPT) (BEAKER) (test 22 U/L 6-55 pive=596) EGFR (BEAKER) (test 42 mL/min/1.73 sq m ESTIMATED GFR IS NOT accw=9832) ACCURATE CREATININE CLEARANCE IN PREDICTING GLOMERULAR FILTRATION RATE. ESTIMATED GFR IS NOT APPLICABLE FOR DIALYSIS PATIENTS. CBC (HEMOGRAM ONLY)2018-03-11 05:48:00 Test Item Value Reference Range Comments WHITE BLOOD CELL COUNT (BEAKER) (test djdf=235) 2.9 K/ L 3.5-10.5 RED BLOOD CELL COUNT (BEAKER) (test fldr=080) 2.62 M/ L 4.63-6.08 HEMOGLOBIN (BEAKER) (test dgyr=941) 8.2 GM/DL 13.7-17.5 HEMATOCRIT (BEAKER) (test mamo=479) 25.8 % 40.1-51.0 MEAN CORPUSCULAR VOLUME (BEAKER) (test eiob=034) 98.5 fL 79.0-92.2 MEAN CORPUSCULAR HEMOGLOBIN (BEAKER) (test 31.3 pg 25.7-32.2 llwp=268) MEAN CORPUSCULAR HEMOGLOBIN CONC (BEAKER) (test 31.8 GM/DL 32.3-36.5 kqii=739) RED CELL DISTRIBUTION WIDTH (BEAKER) (test 17.0 % 11.6-14.4 sjto=906) PLATELET COUNT (BEAKER) (test tace=892) 43 K/CU MM 150-450 MEAN PLATELET VOLUME (BEAKER) (test uics=177) 13.2 fL 9.4-12.4 NUCLEATED RED BLOOD CELLS (BEAKER) (test 0 /100 WBC 0-0 jaon=255) POCT-GLUCOSE [id number] 21:15:00 Test Item Value Reference Range Comments POC-GLUCOSE METER (BEAKER) 198 mg/dL 70-110 TESTED AT [facility] [address] [facility] (test wrdg=5493) [facility] [address] URINALYSIS W/ REFLEX URINE [id number] 18:11:00 Test Item Value Reference Range Comments COLOR (BEAKER) (test ddzz=050) Light Yellow CLARITY (BEAKER) (test dtqe=486) Clear SPECIFIC GRAVITY UA (BEAKER) (test kyji=997) 1.006 1.001-1.035 PH UA (BEAKER) (test wofc=063) 5.5 5.0-8.0 PROTEIN UA (BEAKER) (test irsv=207) Negative Negative GLUCOSE UA (BEAKER) (test coqe=992) Negative Negative KETONES UA (BEAKER) (test bfea=962) Negative Negative BILIRUBIN UA (BEAKER) (test kpqv=280) Negative Negative BLOOD UA (BEAKER) (test xuaj=582) Small Negative NITRITE UA (BEAKER) (test pxrs=345) Negative Negative LEUKOCYTE ESTERASE UA (BEAKER) (test qphi=228) Negative Negative UROBILINOGEN UA (BEAKER) (test nguk=608) 0.2 mg/dL 0.2-1.0 RBC UA (BEAKER) (test prse=732) 7 /HPF WBC UA (BEAKER) (test jhoz=141) 0 /HPF HYALINE CASTS (BEAKER) (test vsyk=801) 4 /LPF SOURCE(BEAKER) (test kdet=5044) RAD, ANKLE, MIN 3 VIEWS, [id number] 14:45:00Reason for exam:->r ankle painFINAL REPORT HISTORY: [...] are osteoarthritic degenerative changes. Signed: Celena Clark Verified Date/Time: 03/10/2018 14:45:04 Reading Location: [address] Consult Reading Room Electronicallysigned by: CELENA CLARK M.D. on 03/10/2018 02: 45 PMB-TYPE NATRIURETIC FACTOR (BNP)2018-03-10 12:49:00 Test Item Value Reference Range Comments B-TYPE NATRIURETIC PEPTIDE (BEAKER) (test 650 pg/mL 0-100 dguh=360) [id number] 12:44:00 Test Item Value Reference Range Comments AMMONIA (BEAKER) (test ttfk=369) 30 mol/L 18-72 COMPREHENSIVE METABOLIC [id number] 12:42:00 Test Item Value Reference Range Comments TOTAL PROTEIN (BEAKER) 7.0 gm/dL 6.0-8.3 (test rrmq=365) ALBUMIN (BEAKER) (test 3.1 g/dL 3.5-5.0 fchb=0361) ALKALINE PHOSPHATASE 131 U/L 40-150 (BEAKER) (test dhgd=343) BILIRUBIN TOTAL (BEAKER) 1.9 mg/dL 0.2-1.2 (test gpse=632) SODIUM (BEAKER) (test 138 meq/L 136-145 efwm=825) POTASSIUM (BEAKER) (test 3.7 meq/L 3.5-5.1 wrsx=317) CHLORIDE (BEAKER) (test 105 meq/L 98-107 xfkp=434) CO2 (BEAKER) (test 25 meq/L 22-29 wgcc=738) BLOOD UREA NITROGEN 42 mg/dL 7-21 (BEAKER) (test zxdf=914) CREATININE (BEAKER) (test 1.82 mg/dL 0.57-1.25 canc=673) GLUCOSE RANDOM (BEAKER) 211 mg/dL 70-105 (test pijp=845) CALCIUM (BEAKER) (test 8.8 mg/dL 8.4-10.2 tmkk=152) AST (SGOT) (BEAKER) (test 49 U/L 5-34 lhxb=562) ALT (SGPT) (BEAKER) (test 30 U/L 6-55 acsu=902) EGFR (BEAKER) (test 37 mL/min/1.73 sq m ESTIMATED GFR IS NOT cyeb=5526) ACCURATE CREATININE CLEARANCE IN PREDICTING GLOMERULAR FILTRATION RATE. ESTIMATED GFR IS NOT APPLICABLE FOR DIALYSIS PATIENTS. [id number] 12:27:00 Test Item Value Reference Range Comments PROTIME (BEAKER) (test eclr=773) 17.4 seconds 11.7-14.7 INR (BEAKER) (test omoy=941) 1.4 <=5.9 PARTIAL THROMBOPLASTIN TIME (BEAKER) (test 33.1 seconds 22.5-36.0 xizt=699) RECOMMENDED COUMADIN/WARFARIN INR THERAPY RANGESSTANDARD DOSE: 2.0 - 3.0 Includes: PROPHYLAXIS forvenous thrombosis, systemic embolization; TREATMENT for venous thrombosis and/or pulmonary embolus.HIGH RISK: Target INR is 2.5-3.5 for patients with mechanical heart valves.CBC W/PLT COUNT & AUTO [id number] 12:19:00 Test Item Value Reference Range Comments WHITE BLOOD CELL COUNT (BEAKER) (test jxkz=597) 4.9 K/ L 3.5-10.5 RED BLOOD CELL COUNT (BEAKER) (test xhbn=341) 2.90 M/ L 4.63-6.08 HEMOGLOBIN (BEAKER) (test gezn=276) 9.0 GM/DL 13.7-17.5 HEMATOCRIT (BEAKER) (test wytz=458) 28.5 % 40.1-51.0 MEAN CORPUSCULAR VOLUME (BEAKER) (test anby=003) 98.3 fL 79.0-92.2 MEAN CORPUSCULAR HEMOGLOBIN (BEAKER) (test 31.0 pg 25.7-32.2 cnsf=448) MEAN CORPUSCULAR HEMOGLOBIN CONC (BEAKER) (test 31.6 GM/DL 32.3-36.5 yssi=174) RED CELL DISTRIBUTION WIDTH (BEAKER) (test 17.2 % 11.6-14.4 hnvs=755) PLATELET COUNT (BEAKER) (test ubdg=706) 53 K/CU MM 150-450 MEAN PLATELET VOLUME (BEAKER) (test makm=792) 12.5 fL 9.4-12.4 NUCLEATED RED BLOOD CELLS (BEAKER) (test 0 /100 WBC 0-0 xkrh=444) NEUTROPHILS RELATIVE PERCENT (BEAKER) (test 73 % utsw=032) LYMPHOCYTES RELATIVE PERCENT (BEAKER) (test 12 % hbol=202) MONOCYTES RELATIVE PERCENT (BEAKER) (test 9 % zpsy=906) EOSINOPHILS RELATIVE PERCENT (BEAKER) (test 6 % sozn=875) BASOPHILS RELATIVE PERCENT (BEAKER) (test 0 % xfte=633) NEUTROPHILS ABSOLUTE COUNT (BEAKER) (test 3.58 K/ L 1.78-5.38 bazz=612) LYMPHOCYTES ABSOLUTE COUNT (BEAKER) (test 0.58 K/ L 1.32-3.57 shzu=572) MONOCYTES ABSOLUTE COUNT (BEAKER) (test bqax=272) 0.42 K/ L 0.30-0.82 EOSINOPHILS ABSOLUTE COUNT (BEAKER) (test 0.28 K/ L 0.04-0.54 pahh=873) BASOPHILS ABSOLUTE COUNT (BEAKER) (test zrwa=020) 0.02 K/ L 0.01-0.08 IMMATURE GRANULOCYTES-RELATIVE PERCENT (BEAKER) 0 % 0-1 (test rnud=9286) BLOOD [id number] 18:00:00 Test Item Value Reference Range Comments CULTURE (BEAKER) (test fqxt=9163) No growth in 5 days BLOOD [id number] 18:00:00 Test Item Value Reference Range Comments CULTURE (BEAKER) (test ndsd=3992) No growth in 5 days POCT-GLUCOSE [id number] 12:29:00 Test Item Value Reference Range Comments POC-GLUCOSE METER (BEAKER) 207 mg/dL 70-110 TESTED AT [address] (test owly=8725) [facility] [address] POCT-GLUCOSE [id number] 08:01:00 Test Item Value Reference Range Comments POC-GLUCOSE METER (BEAKER) 150 mg/dL 70-110 TESTED AT [address] (test pkls=4790) [facility] [address] ALPHA FETOPROTEIN (AFP), TUMOR [id number] 07:22:00 Test Item Value Reference Range Comments ALPHA-FETOPROTEIN (BEAKER) (test vsdh=7377) < ng/mL <10.0 [id number] 06:49:00 Test Item Value Reference Range Comments MAGNESIUM (BEAKER) (test nwyk=189) 1.7 mg/dL 1.6-2.6 BASIC METABOLIC [id number] 06:49:00 Test Item Value Reference Range Comments SODIUM (BEAKER) (test 134 meq/L 136-145 imru=823) POTASSIUM (BEAKER) (test 4.1 meq/L 3.5-5.1 sheg=501) CHLORIDE (BEAKER) (test 104 meq/L 98-107 yrlx=320) CO2 (BEAKER) (test 24 meq/L 22-29 miat=935) BLOOD UREA NITROGEN 32 mg/dL 7-21 (BEAKER) (test idpy=280) CREATININE (BEAKER) (test 1.42 mg/dL 0.57-1.25 rsgs=159) GLUCOSE RANDOM (BEAKER) 138 mg/dL 70-105 (test ivyg=119) CALCIUM (BEAKER) (test 8.3 mg/dL 8.4-10.2 leba=706) EGFR (BEAKER) (test 50 mL/min/1.73 sq m ESTIMATED GFR IS NOT jvla=4371) ACCURATE CREATININE CLEARANCE IN PREDICTING GLOMERULAR FILTRATION RATE. ESTIMATED GFR IS NOT APPLICABLE FOR DIALYSIS PATIENTS. HEPATIC FUNCTION [id number] 06:49:00 Test Item Value Reference Range Comments TOTAL PROTEIN (BEAKER) (test bzss=550) 6.0 gm/dL 6.0-8.3 ALBUMIN (BEAKER) (test kdae=9223) 2.7 g/dL 3.5-5.0 BILIRUBIN TOTAL (BEAKER) (test gwgg=352) 1.9 mg/dL 0.2-1.2 BILIRUBIN DIRECT (BEAKER) (test cuyy=921) 0.9 mg/dL 0.1-0.5 ALKALINE PHOSPHATASE (BEAKER) (test mpkf=721) 104 U/L 40-150 AST (SGOT) (BEAKER) (test vquo=242) 35 U/L 5-34 ALT (SGPT) (BEAKER) (test lfjx=065) 22 U/L 6-55 PROTHROMBIN [id number] 06:31:00 Test Item Value Reference Range Comments PROTIME (BEAKER) (test ddgt=621) 17.6 seconds 11.7-14.7 INR (BEAKER) (test vzpy=184) 1.5 <=5.9 RECOMMENDED COUMADIN/WARFARIN INR THERAPY RANGESSTANDARD DOSE: 2.0 - 3.0 Includes: PROPHYLAXIS forvenous thrombosis, systemic embolization; TREATMENT for venous thrombosis and/or pulmonary embolus.HIGH RISK: Target INR is 2.5-3.5 for patients with mechanical heart valves.CBC W/PLT COUNT & AUTO [id number] 06:23:00 Test Item Value Reference Range Comments WHITE BLOOD CELL COUNT (BEAKER) (test vjli=471) 4.1 K/ L 3.5-10.5 RED BLOOD CELL COUNT (BEAKER) (test xhyi=517) 2.55 M/ L 4.63-6.08 HEMOGLOBIN (BEAKER) (test dmhc=663) 7.9 GM/DL 13.7-17.5 HEMATOCRIT (BEAKER) (test bqnf=872) 25.0 % 40.1-51.0 MEAN CORPUSCULAR VOLUME (BEAKER) (test pcdd=047) 98.0 fL 79.0-92.2 MEAN CORPUSCULAR HEMOGLOBIN (BEAKER) (test 31.0 pg 25.7-32.2 nfql=005) MEAN CORPUSCULAR HEMOGLOBIN CONC (BEAKER) (test 31.6 GM/DL 32.3-36.5 nmvb=814) RED CELL DISTRIBUTION WIDTH (BEAKER) (test 16.8 % 11.6-14.4 qgrt=857) PLATELET COUNT (BEAKER) (test zmnl=120) 43 K/CU MM 150-450 MEAN PLATELET VOLUME (BEAKER) (test voly=099) 10.8 fL 9.4-12.4 NUCLEATED RED BLOOD CELLS (BEAKER) (test 0 /100 WBC 0-0 oxij=767) NEUTROPHILS RELATIVE PERCENT (BEAKER) (test 71 % cqaz=683) LYMPHOCYTES RELATIVE PERCENT (BEAKER) (test 12 % eumi=000) MONOCYTES RELATIVE PERCENT (BEAKER) (test 9 % ljwc=051) EOSINOPHILS RELATIVE PERCENT (BEAKER) (test 8 % edqu=220) BASOPHILS RELATIVE PERCENT (BEAKER) (test 0 % adwb=686) NEUTROPHILS ABSOLUTE COUNT (BEAKER) (test 2.90 K/ L 1.78-5.38 lprk=477) LYMPHOCYTES ABSOLUTE COUNT (BEAKER) (test 0.47 K/ L 1.32-3.57 wybf=690) MONOCYTES ABSOLUTE COUNT (BEAKER) (test awra=002) 0.35 K/ L 0.30-0.82 EOSINOPHILS ABSOLUTE COUNT (BEAKER) (test 0.33 K/ L 0.04-0.54 sast=423) BASOPHILS ABSOLUTE COUNT (BEAKER) (test mxbf=643) 0.01 K/ L 0.01-0.08 IMMATURE GRANULOCYTES-RELATIVE PERCENT (BEAKER) 0 % 0-1 (test fcfj=9093) POCT-GLUCOSE [id number] 21:17:00 Test Item Value Reference Range Comments POC-GLUCOSE METER (BEAKER) 219 mg/dL 70-110 TESTED AT [address] (test cfvx=7022) [place] [id number] POCT-GLUCOSE [id number] 17:24:00 Test Item Value Reference Range Comments POC-GLUCOSE METER (BEAKER) 279 mg/dL 70-110 TESTED AT [address] (test cdws=9865) [place] [address] U/S, ABDOMINAL, [id number] 17:11:00Diagnostic paracentesis to r/o bacterial peritonitis.Reason for exam:->ascites; rule out sbpFINAL REPORT Limited abdominal ultrasound Clinical History: Ascites, rule outSBP Technique: Limited abdominal ultrasound is performed in all four quadrants to assess for presence of ascites in anticipation of paracentesis. No significant ascites identified. Impression: No significant ascites. Paracentesis was not performed. Signed: Ralph Larose MDReport Verified Date/Time : 02/20/2018 17:11:22 Reading Location: [address] Ultrasound Reading Room [id number] 15:07:00 Test Item Value Reference Range Comments PREALBUMIN (BEAKER) (test pjxs=446) 9 mg/dL 14-45 Listed for OLT - Nutrition Surveillance ([facility])POCT- GLUCOSE [id number] 12:03:00 Test Item Value Reference Range Comments POC-GLUCOSE METER (BEAKER) 215 mg/dL 70-110 TESTED AT [address] (test dsxy=4556) [place] [address] POCT-GLUCOSE [id number] 10:58:00 Test Item Value Reference Range Comments POC-GLUCOSE METER (BEAKER) 231 mg/dL 70-110 TESTED AT [address] (test htet=5866) [place] [address] [id number] 03:38:00 Test Item Value Reference Range Comments MAGNESIUM (BEAKER) (test ehkg=489) 1.9 mg/dL 1.6-2.6 BASIC METABOLIC [id number] 03:38:00 Test Item Value Reference Range Comments SODIUM (BEAKER) (test 133 meq/L 136-145 hqxp=601) POTASSIUM (BEAKER) (test 3.5 meq/L 3.5-5.1 tnws=817) CHLORIDE (BEAKER) (test 102 meq/L 98-107 sosv=491) CO2 (BEAKER) (test 21 meq/L 22-29 zkru=143) BLOOD UREA NITROGEN 34 mg/dL 7-21 (BEAKER) (test hmvd=090) CREATININE (BEAKER) (test 1.31 mg/dL 0.57-1.25 swzl=428) GLUCOSE RANDOM (BEAKER) 249 mg/dL 70-105 (test mmis=016) CALCIUM (BEAKER) (test 8.7 mg/dL 8.4-10.2 fzij=499) EGFR (BEAKER) (test 54 mL/min/1.73 sq m ESTIMATED GFR IS NOT dhux=4131) ACCURATE CREATININE CLEARANCE IN PREDICTING GLOMERULAR FILTRATION RATE. ESTIMATED GFR IS NOT APPLICABLE FOR DIALYSIS PATIENTS. HEPATIC FUNCTION [id number] 03:38:00 Test Item Value Reference Range Comments TOTAL PROTEIN (BEAKER) (test nbum=337) 6.2 gm/dL 6.0-8.3 ALBUMIN (BEAKER) (test dvip=0875) 2.6 g/dL 3.5-5.0 BILIRUBIN TOTAL (BEAKER) (test iiet=194) 1.8 mg/dL 0.2-1.2 BILIRUBIN DIRECT (BEAKER) (test oeku=156) 0.9 mg/dL 0.1-0.5 ALKALINE PHOSPHATASE (BEAKER) (test bzmu=921) 98 U/L 40-150 AST (SGOT) (BEAKER) (test finl=835) 37 U/L 5-34 ALT (SGPT) (BEAKER) (test avap=867) 21 U/L 6-55 PROTHROMBIN [id number] 03:21:00 Test Item Value Reference Range Comments PROTIME (BEAKER) (test svwu=360) 17.1 seconds 11.7-14.7 INR (BEAKER) (test vrop=656) 1.4 <=5.9 RECOMMENDED COUMADIN/WARFARIN INR THERAPY RANGESSTANDARD DOSE: 2.0 - 3.0 Includes: PROPHYLAXIS forvenous thrombosis, systemic embolization; TREATMENT for venous thrombosis and/or pulmonary embolus.HIGH RISK: Target INR is 2.5-3.5 for patients with mechanical heart valves.CBC W/PLT COUNT & AUTO [id number] 03:03:00 Test Item Value Reference Range Comments WHITE BLOOD CELL COUNT (BEAKER) (test rajt=187) 4.0 K/ L 3.5-10.5 RED BLOOD CELL COUNT (BEAKER) (test cygo=461) 2.68 M/ L 4.63-6.08 HEMOGLOBIN (BEAKER) (test dmge=301) 8.3 GM/DL 13.7-17.5 HEMATOCRIT (BEAKER) (test bylv=270) 27.1 % 40.1-51.0 MEAN CORPUSCULAR VOLUME (BEAKER) (test rwps=859) 101.1 fL 79.0-92.2 MEAN CORPUSCULAR HEMOGLOBIN (BEAKER) (test 31.0 pg 25.7-32.2 qwlo=122) MEAN CORPUSCULAR HEMOGLOBIN CONC (BEAKER) (test 30.6 GM/DL 32.3-36.5 iagi=172) RED CELL DISTRIBUTION WIDTH (BEAKER) (test 17.2 % 11.6-14.4 lruu=704) PLATELET COUNT (BEAKER) (test mbmf=905) 40 K/CU MM 150-450 MEAN PLATELET VOLUME (BEAKER) (test nspf=438) 11.8 fL 9.4-12.4 NUCLEATED RED BLOOD CELLS (BEAKER) (test 0 /100 WBC 0-0 fjpj=685) NEUTROPHILS RELATIVE PERCENT (BEAKER) (test 72 % kphp=631) LYMPHOCYTES RELATIVE PERCENT (BEAKER) (test 13 % ginr=055) MONOCYTES RELATIVE PERCENT (BEAKER) (test 9 % qdvy=110) EOSINOPHILS RELATIVE PERCENT (BEAKER) (test 6 % rpuu=431) BASOPHILS RELATIVE PERCENT (BEAKER) (test 1 % wmqo=137) NEUTROPHILS ABSOLUTE COUNT (BEAKER) (test 2.89 K/ L 1.78-5.38 hkry=064) LYMPHOCYTES ABSOLUTE COUNT (BEAKER) (test 0.50 K/ L 1.32-3.57 ujng=890) MONOCYTES ABSOLUTE COUNT (BEAKER) (test vfkm=963) 0.35 K/ L 0.30-0.82 EOSINOPHILS ABSOLUTE COUNT (BEAKER) (test 0.24 K/ L 0.04-0.54 wzzn=332) BASOPHILS ABSOLUTE COUNT (BEAKER) (test smvp=664) 0.02 K/ L 0.01-0.08 IMMATURE GRANULOCYTES-RELATIVE PERCENT (BEAKER) 0 % 0-1 (test ptqd=3199) POCT-GLUCOSE [id number] 01:30:00 Test Item Value Reference Range Comments POC-GLUCOSE METER (BEAKER) 261 mg/dL 70-110 TESTED AT [facility] [address] [facility] (test fzsl=0618) [facility] [address] URINALYSIS W/ [id number] 22:14:00 Test Item Value Reference Range Comments COLOR (BEAKER) (test ciym=791) Light Yellow CLARITY (BEAKER) (test szjf=164) Clear SPECIFIC GRAVITY UA (BEAKER) (test vdbe=676) 1.005 1.001-1.035 PH UA (BEAKER) (test cmex=006) 5.0 5.0-8.0 PROTEIN UA (BEAKER) (test givk=881) Negative Negative GLUCOSE UA (BEAKER) (test tjnx=738) Negative Negative KETONES UA (BEAKER) (test ontg=181) Negative Negative BILIRUBIN UA (BEAKER) (test rkpz=216) Negative Negative BLOOD UA (BEAKER) (test xvme=261) Small Negative NITRITE UA (BEAKER) (test sgmo=881) Negative Negative LEUKOCYTE ESTERASE UA (BEAKER) (test fngf=654) Negative Negative UROBILINOGEN UA (BEAKER) (test mkhf=110) 0.2 mg/dL 0.2-1.0 RBC UA (BEAKER) (test kmza=139) 3 /HPF WBC UA (BEAKER) (test akrm=518) < /HPF BACTERIA (BEAKER) (test gyum=664) Rare MUCUS (BEAKER) (test mgjx=1128) Rare HYALINE CASTS (BEAKER) (test jesc=790) 1 /LPF SOURCE(BEAKER) (test qrey=7828) CT, BRAIN, WITHOUT [id number] 21:49:00Reason for exam:->EMESISReason for exam:->ALTERED MENTAL STATUSWhat [...] of acute intracranial abnormality. Signed: Rachid Wilks Verified Date/Time: 02/19/2018 21: 49:02 RAD, CHEST, 1 VIEW, NON [id number] 21:45:00Reason for exam:-> EMESISReason for exam:->ALTERED MENTAL STATUSShould [facility] be performed [facility]?->YesFINAL REPORT INDICATION: EMESISALTERED MENTAL STATUS COMPARISON: 06/19/17 TECHNIQUE: Single frontal view of the chest. FINDINGS: Lungs and pleura: Clear lungs. No effusion.Heart and mediastinum: Normal heart size. Stable valvular surgical changes.Osseous structures: No acute abnormality.Other: None. IMPRESSION: No acute intrathoracic abnormality. Signed: JR Wong Robert MDReport Verified Date/Time: 02/19/2018 21:45:47 Reading Location: [address] Body Reading Room [id number] 21:16:00 Test Item Value Reference Range Comments PROTIME (BEAKER) (test ieee=679) 16.7 seconds 11.7-14.7 INR (BEAKER) (test jgpe=054) 1.4 <=5.9 PARTIAL THROMBOPLASTIN TIME (BEAKER) (test 34.2 seconds 22.5-36.0 hyvs=144) RECOMMENDED COUMADIN/WARFARIN INR THERAPY RANGESSTANDARD DOSE: 2.0 - 3.0 Includes: PROPHYLAXIS forvenous thrombosis, systemic embolization; TREATMENT for venous thrombosis and/or pulmonary embolus.HIGH RISK: Target INR is 2.5-3.5 for patients with mechanical heart valves.[id number] 21:16:00 Test Item Value Reference Range Comments AMMONIA (BEAKER) (test 32 mol/L 18-72 Specimen slightly hemolyzed owcy=868) [id number] 21:08:00 Test Item Value Reference Range Comments LIPASE (BEAKER) (test npqz=533) 180 U/L 8-78 [id number] 21:08:00 Test Item Value Reference Range Comments AMYLASE (BEAKER) (test cweq=491) 20 U/L 25-125 Specimen slightly hemolyzed BASIC METABOLIC [id number] 21:08:00 Test Item Value Reference Range Comments SODIUM (BEAKER) (test 135 meq/L 136-145 tove=224) POTASSIUM (BEAKER) (test 4.0 meq/L 3.5-5.1 Specimen slightly imjg=590) hemolyzed CHLORIDE (BEAKER) (test 103 meq/L 98-107 amyr=389) CO2 (BEAKER) (test 24 meq/L 22-29 itui=738) BLOOD UREA NITROGEN 36 mg/dL 7-21 (BEAKER) (test kjps=496) CREATININE (BEAKER) (test 1.41 mg/dL 0.57-1.25 Specimen slightly gnzw=203) hemolyzed GLUCOSE RANDOM (BEAKER) 253 mg/dL 70-105 (test qrru=648) CALCIUM (BEAKER) (test 9.0 mg/dL 8.4-10.2 ayte=879) EGFR (BEAKER) (test 50 mL/min/1.73 sq m ESTIMATED GFR IS NOT iyqh=4844) ACCURATE CREATININE CLEARANCE IN PREDICTING GLOMERULAR FILTRATION RATE. ESTIMATED GFR IS NOT APPLICABLE FOR DIALYSIS PATIENTS. HEPATIC FUNCTION [id number] 21:08:00 Test Item Value Reference Range Comments TOTAL PROTEIN (BEAKER) (test 6.6 gm/dL 6.0-8.3 Specimen slightly hemolyzed yttn=266) ALBUMIN (BEAKER) (test 2.8 g/dL 3.5-5.0 Specimen slightly hemolyzed baff=9586) BILIRUBIN TOTAL (BEAKER) (test 1.7 mg/dL 0.2-1.2 Specimen slightly hemolyzed ajlo=370) BILIRUBIN DIRECT (BEAKER) (test 0.8 mg/dL 0.1-0.5 Specimen slightly hemolyzed lokk=380) ALKALINE PHOSPHATASE (BEAKER) 106 U/L 40-150 (test dtts=458) AST (SGOT) (BEAKER) (test 46 U/L 5-34 Specimen slightly hemolyzed vlsl=484) ALT (SGPT) (BEAKER) (test 27 U/L 6-55 Specimen slightly hemolyzed utjq=801) CBC W/PLT COUNT & AUTO [id number] 20:50:00 Test Item Value Reference Range Comments WHITE BLOOD CELL COUNT (BEAKER) (test qjcm=597) 5.4 K/ L 3.5-10.5 RED BLOOD CELL COUNT (BEAKER) (test gudv=495) 2.83 M/ L 4.63-6.08 HEMOGLOBIN (BEAKER) (test xzzf=150) 8.8 GM/DL 13.7-17.5 HEMATOCRIT (BEAKER) (test vcsu=132) 28.3 % 40.1-51.0 MEAN CORPUSCULAR VOLUME (BEAKER) (test ixcw=774) 100.0 fL 79.0-92.2 MEAN CORPUSCULAR HEMOGLOBIN (BEAKER) (test 31.1 pg 25.7-32.2 juml=192) MEAN CORPUSCULAR HEMOGLOBIN CONC (BEAKER) (test 31.1 GM/DL 32.3-36.5 rlnh=921) RED CELL DISTRIBUTION WIDTH (BEAKER) (test 17.1 % 11.6-14.4 hyry=989) PLATELET COUNT (BEAKER) (test jdqz=470) 57 K/CU MM 150-450 MEAN PLATELET VOLUME (BEAKER) (test apuv=820) 13.8 fL 9.4-12.4 NUCLEATED RED BLOOD CELLS (BEAKER) (test 0 /100 WBC 0-0 ntgl=500) NEUTROPHILS RELATIVE PERCENT (BEAKER) (test 77 % uioi=844) LYMPHOCYTES RELATIVE PERCENT (BEAKER) (test 9 % rfsv=366) MONOCYTES RELATIVE PERCENT (BEAKER) (test 9 % nlek=118) EOSINOPHILS RELATIVE PERCENT (BEAKER) (test 5 % rige=758) BASOPHILS RELATIVE PERCENT (BEAKER) (test 0 % ucof=665) NEUTROPHILS ABSOLUTE COUNT (BEAKER) (test 4.16 K/ L 1.78-5.38 jfzy=211) LYMPHOCYTES ABSOLUTE COUNT (BEAKER) (test 0.46 K/ L 1.32-3.57 ywiq=013) MONOCYTES ABSOLUTE COUNT (BEAKER) (test vkoe=482) 0.48 K/ L 0.30-0.82 EOSINOPHILS ABSOLUTE COUNT (BEAKER) (test 0.29 K/ L 0.04-0.54 igju=645) BASOPHILS ABSOLUTE COUNT (BEAKER) (test qugc=520) 0.01 K/ L 0.01-0.08 IMMATURE GRANULOCYTES-RELATIVE PERCENT (BEAKER) 0 % 0-1 (test ebhh=6998) U/S, ABDOMINAL, WITH [id number] 12:44:00With doppler With doppler Reason for Exam:->cirrhosis, [...] assessment.4. Cholelithiasis.5. Pancreas poorly seen. Signed: Cheikh Melissa MDReport Verified Date/Time: 01/07/2018 12 :44:58 Reading Location: [address] Radiology Reading Room POCT- GLUCOSE [id number] 10:12:00 Test Item Value Reference Range Comments POC-GLUCOSE METER (BEAKER) 184 mg/dL 70-110 TESTED AT [facility] [address] [facility] (test jkuv=8975) [facility] [address] ALPHA FETOPROTEIN (AFP), TUMOR [id number] 15:21:00 Test Item Value Reference Range Comments ALPHA-FETOPROTEIN (BEAKER) (test gvon=9060) < ng/mL <10.0 COMPREHENSIVE METABOLIC [id number] 14:46:00 Test Item Value Reference Range Comments TOTAL PROTEIN (BEAKER) 7.2 gm/dL 6.0-8.3 (test rqio=488) ALBUMIN (BEAKER) (test 3.2 g/dL 3.5-5.0 yqta=4531) ALKALINE PHOSPHATASE 128 U/L 40-150 (BEAKER) (test jkvj=231) BILIRUBIN TOTAL (BEAKER) 1.5 mg/dL 0.2-1.2 (test ufhv=303) SODIUM (BEAKER) (test 135 meq/L 136-145 lycb=995) POTASSIUM (BEAKER) (test 4.1 meq/L 3.5-5.1 rduf=789) CHLORIDE (BEAKER) (test 103 meq/L 98-107 gwft=939) CO2 (BEAKER) (test 24 meq/L 22-29 tubd=797) BLOOD UREA NITROGEN 55 mg/dL 7-21 (BEAKER) (test erdh=942) CREATININE (BEAKER) (test 1.45 mg/dL 0.57-1.25 pane=862) GLUCOSE RANDOM (BEAKER) 148 mg/dL 70-105 (test dgrm=110) CALCIUM (BEAKER) (test 8.9 mg/dL 8.4-10.2 mfuz=620) AST (SGOT) (BEAKER) (test 46 U/L 5-34 popt=797) ALT (SGPT) (BEAKER) (test 26 U/L 6-55 pztk=802) EGFR (BEAKER) (test 48 mL/min/1.73 sq m ESTIMATED GFR IS NOT djba=1246) ACCURATE CREATININE CLEARANCE IN PREDICTING GLOMERULAR FILTRATION RATE. ESTIMATED GFR IS NOT APPLICABLE FOR DIALYSIS PATIENTS. BILIRUBIN, [id number] 14:46:00 Test Item Value Reference Range Comments BILIRUBIN DIRECT (BEAKER) (test ajjw=627) 0.8 mg/dL 0.1-0.5 CBC W/PLT COUNT & AUTO [id number] 14:35:00 Test Item Value Reference Range Comments WHITE BLOOD CELL COUNT (BEAKER) (test pcyx=945) 5.8 K/ L 3.5-10.5 RED BLOOD CELL COUNT (BEAKER) (test kppn=204) 2.95 M/ L 4.63-6.08 HEMOGLOBIN (BEAKER) (test ckts=928) 9.3 GM/DL 13.7-17.5 HEMATOCRIT (BEAKER) (test axby=901) 28.9 % 40.1-51.0 MEAN CORPUSCULAR VOLUME (BEAKER) (test lpyl=090) 98.0 fL 79.0-92.2 MEAN CORPUSCULAR HEMOGLOBIN (BEAKER) (test 31.5 pg 25.7-32.2 bimz=644) MEAN CORPUSCULAR HEMOGLOBIN CONC (BEAKER) (test 32.2 GM/DL 32.3-36.5 euwj=265) RED CELL DISTRIBUTION WIDTH (BEAKER) (test 14.5 % 11.6-14.4 nsro=436) PLATELET COUNT (BEAKER) (test zucg=318) 51 K/CU MM 150-450 MEAN PLATELET VOLUME (BEAKER) (test shij=521) 12.8 fL 9.4-12.4 NUCLEATED RED BLOOD CELLS (BEAKER) (test 0 /100 WBC 0-0 xuxi=806) NEUTROPHILS RELATIVE PERCENT (BEAKER) (test 72 % yovn=121) LYMPHOCYTES RELATIVE PERCENT (BEAKER) (test 9 % owyo=470) MONOCYTES RELATIVE PERCENT (BEAKER) (test 10 % zwdb=504) EOSINOPHILS RELATIVE PERCENT (BEAKER) (test 8 % vzhi=094) BASOPHILS RELATIVE PERCENT (BEAKER) (test 0 % bucj=814) NEUTROPHILS ABSOLUTE COUNT (BEAKER) (test 4.22 K/ L 1.78-5.38 ottj=093) LYMPHOCYTES ABSOLUTE COUNT (BEAKER) (test 0.54 K/ L 1.32-3.57 slap=489) MONOCYTES ABSOLUTE COUNT (BEAKER) (test jznm=308) 0.59 K/ L 0.30-0.82 EOSINOPHILS ABSOLUTE COUNT (BEAKER) (test 0.45 K/ L 0.04-0.54 hjfy=845) BASOPHILS ABSOLUTE COUNT (BEAKER) (test amnk=125) 0.02 K/ L 0.01-0.08 IMMATURE GRANULOCYTES-RELATIVE PERCENT (BEAKER) 0 % 0-1 (test piwq=8551) PROTHROMBIN [id number] 14:27:00 Test Item Value Reference Range Comments PROTIME (BEAKER) (test nifi=786) 16.9 seconds 11.7-14.7 INR (BEAKER) (test pmdo=376) 1.4 <=5.9 RECOMMENDED COUMADIN/WARFARIN INR THERAPY RANGESSTANDARD DOSE: 2.0 - 3.0 Includes: PROPHYLAXIS forvenous thrombosis, systemic embolization; TREATMENT for venous thrombosis and/or pulmonary embolus.HIGH RISK: Target INR is 2.5-3.5 for patients with mechanical heart valves.U/S, ABDOMINAL, WITH [id number] 17:20:00With doppler With dopplwe Reason for Exam:->cirrhosis, on liver transplant waiting [...] main portal vein.3. Cholelithiasis. Signed: Ralph Jaffe Verified Date/Time: 07/09/2017 17:20:26 Reading Location: [address] Radiology Reading [facility] [id number] 11: 35:00 Test Item Value Reference Range Comments TOTAL PROTEIN (BEAKER) 6.9 gm/dL 6.0-8.3 (test fttb=084) ALBUMIN (BEAKER) (test 3.0 g/dL 3.5-5.0 pyur=7524) ALKALINE PHOSPHATASE 147 U/L 40-150 (BEAKER) (test lued=598) BILIRUBIN TOTAL (BEAKER) 1.4 mg/dL 0.2-1.2 (test blkc=207) SODIUM (BEAKER) (test 136 meq/L 136-145 prne=750) POTASSIUM (BEAKER) (test 4.1 meq/L 3.5-5.1 yave=235) CHLORIDE (BEAKER) (test 106 meq/L 98-107 sdtz=311) CO2 (BEAKER) (test 20 meq/L 22-29 gptb=901) BLOOD UREA NITROGEN 37 mg/dL 7-21 (BEAKER) (test vlin=377) CREATININE (BEAKER) (test 1.80 mg/dL 0.57-1.25 xpwj=758) GLUCOSE RANDOM (BEAKER) 215 mg/dL 70-105 (test tfyx=493) CALCIUM (BEAKER) (test 8.4 mg/dL 8.4-10.2 iche=493) AST (SGOT) (BEAKER) (test 38 U/L 5-34 jpmm=696) ALT (SGPT) (BEAKER) (test 23 U/L 6-55 oewf=741) EGFR (BEAKER) (test 38 mL/min/1.73 sq m ESTIMATED GFR IS NOT unog=4717) ACCURATE CREATININE CLEARANCE IN PREDICTING GLOMERULAR FILTRATION RATE. ESTIMATED GFR IS NOT APPLICABLE FOR DIALYSIS PATIENTS. BILIRUBIN, [id number] 11:35:00 Test Item Value Reference Range Comments BILIRUBIN DIRECT (BEAKER) (test bsrq=512) 0.7 mg/dL 0.1-0.5 PROTHROMBIN [id number] 11:16:00 Test Item Value Reference Range Comments PROTIME (BEAKER) (test gcng=930) 16.8 seconds 11.7-14.7 INR (BEAKER) (test sqko=735) 1.4 <=5.9 RECOMMENDED COUMADIN/WARFARIN INR THERAPY RANGESSTANDARD DOSE: 2.0 - 3.0 Includes: PROPHYLAXIS forvenous thrombosis, systemic embolization; TREATMENT for venous thrombosis and/or pulmonary embolus.HIGH RISK: Target INR is 2.5-3.5 for patients with mechanical heart valves.CBC W/PLT COUNT & AUTO [id number] 11:09:00 Test Item Value Reference Range Comments WHITE BLOOD CELL COUNT (BEAKER) (test hmdk=043) 5.4 K/ L 3.5-10.5 RED BLOOD CELL COUNT (BEAKER) (test iccp=793) 2.88 M/ L 4.63-6.08 HEMOGLOBIN (BEAKER) (test ujkr=294) 9.3 GM/DL 13.7-17.5 HEMATOCRIT (BEAKER) (test sngt=971) 28.6 % 40.1-51.0 MEAN CORPUSCULAR VOLUME (BEAKER) (test nfds=296) 99.3 fL 79.0-92.2 MEAN CORPUSCULAR HEMOGLOBIN (BEAKER) (test 32.3 pg 25.7-32.2 gzga=103) MEAN CORPUSCULAR HEMOGLOBIN CONC (BEAKER) (test 32.5 GM/DL 32.3-36.5 mzzy=653) RED CELL DISTRIBUTION WIDTH (BEAKER) (test 14.6 % 11.6-14.4 itjj=672) PLATELET COUNT (BEAKER) (test nuhy=916) 48 K/CU MM 150-450 MEAN PLATELET VOLUME (BEAKER) (test uapi=650) 11.2 fL 9.4-12.4 NUCLEATED RED BLOOD CELLS (BEAKER) (test 0 /100 WBC 0-0 akoo=416) NEUTROPHILS RELATIVE PERCENT (BEAKER) (test 75 % fphm=534) LYMPHOCYTES RELATIVE PERCENT (BEAKER) (test 11 % fyhl=538) MONOCYTES RELATIVE PERCENT (BEAKER) (test 9 % ciei=376) EOSINOPHILS RELATIVE PERCENT (BEAKER) (test 5 % qllv=956) BASOPHILS RELATIVE PERCENT (BEAKER) (test 0 % azyv=214) NEUTROPHILS ABSOLUTE COUNT (BEAKER) (test 4.07 K/ L 1.78-5.38 bgbo=352) LYMPHOCYTES ABSOLUTE COUNT (BEAKER) (test 0.58 K/ L 1.32-3.57 znya=242) MONOCYTES ABSOLUTE COUNT (BEAKER) (test bcil=065) 0.46 K/ L 0.30-0.82 EOSINOPHILS ABSOLUTE COUNT (BEAKER) (test 0.28 K/ L 0.04-0.54 jogt=560) BASOPHILS ABSOLUTE COUNT (BEAKER) (test spzb=213) 0.01 K/ L 0.01-0.08 IMMATURE GRANULOCYTES-RELATIVE PERCENT (BEAKER) 0 % 0-1 (test wnaf=8323) BLOOD [id number] 05:01:00 Test Item Value Reference Range Comments CULTURE (BEAKER) (test xahr=7123) No growth in 5 days BLOOD [id number] 05:01:00 Test Item Value Reference Range Comments CULTURE (BEAKER) (test pjnz=2145) No growth in 5 days URINE [id number] 11:54:00 Test Item Value Reference Range Comments CULTURE (BEAKER) (test fmmt=7590) No growth URINE [id number] 10:42:00 Test Item Value Reference Range Comments CULTURE (BEAKER) (test glkb=9543) No growth POCT-GLUCOSE [id number] 12:09:00 Test Item Value Reference Range Comments POC-GLUCOSE METER (BEAKER) 269 mg/dL 70-110 TESTED AT [place] [id number] [facility] (test dnpu=3279) [facility] [address] POCT-GLUCOSE [id number] 07:35:00 Test Item Value Reference Range Comments POC-GLUCOSE METER (BEAKER) 139 mg/dL 70-110 TESTED AT [facility] [address] (test djjz=5346) [facility] [address] CALCIUM, [id number] 07:24:00 Test Item Value Reference Range Comments CALCIUM IONIZED (BEAKER) (test zual=989) 1.17 mmol/L 1.12-1.27 PH, BLOOD (BEAKER) (test kywo=6504) 7.36 CBC W/PLT COUNT & AUTO [id number] 06:41:00 Test Item Value Reference Range Comments WHITE BLOOD CELL COUNT (BEAKER) (test rqau=826) 5.0 K/ L 3.5-10.5 RED BLOOD CELL COUNT (BEAKER) (test ehut=580) 2.81 M/ L 4.63-6.08 HEMOGLOBIN (BEAKER) (test tvie=771) 9.2 GM/DL 13.7-17.5 HEMATOCRIT (BEAKER) (test upyj=056) 27.7 % 40.1-51.0 MEAN CORPUSCULAR VOLUME (BEAKER) (test zsri=996) 98.6 fL 79.0-92.2 MEAN CORPUSCULAR HEMOGLOBIN (BEAKER) (test 32.7 pg 25.7-32.2 usco=291) MEAN CORPUSCULAR HEMOGLOBIN CONC (BEAKER) (test 33.2 GM/DL 32.3-36.5 ugxb=553) RED CELL DISTRIBUTION WIDTH (BEAKER) (test 14.0 % 11.6-14.4 gmfo=843) PLATELET COUNT (BEAKER) (test zhxp=550) 41 K/CU MM 150-450 MEAN PLATELET VOLUME (BEAKER) (test ntga=548) 10.9 fL 9.4-12.4 NUCLEATED RED BLOOD CELLS (BEAKER) (test 0 /100 WBC 0-0 ciev=214) NEUTROPHILS RELATIVE PERCENT (BEAKER) (test 70 % rxxg=429) LYMPHOCYTES RELATIVE PERCENT (BEAKER) (test 11 % gzuy=137) MONOCYTES RELATIVE PERCENT (BEAKER) (test 11 % clru=670) EOSINOPHILS RELATIVE PERCENT (BEAKER) (test 7 % cgob=707) BASOPHILS RELATIVE PERCENT (BEAKER) (test 0 % nokr=703) NEUTROPHILS ABSOLUTE COUNT (BEAKER) (test 3.48 K/ L 1.78-5.38 locg=297) LYMPHOCYTES ABSOLUTE COUNT (BEAKER) (test 0.54 K/ L 1.32-3.57 ogib=347) MONOCYTES ABSOLUTE COUNT (BEAKER) (test nkhv=101) 0.57 K/ L 0.30-0.82 EOSINOPHILS ABSOLUTE COUNT (BEAKER) (test 0.36 K/ L 0.04-0.54 hlte=643) BASOPHILS ABSOLUTE COUNT (BEAKER) (test ckmr=737) 0.02 K/ L 0.01-0.08 IMMATURE GRANULOCYTES-RELATIVE PERCENT (BEAKER) 0 % 0-1 (test sjsh=1812) [id number] 06:38:00 Test Item Value Reference Range Comments PHOSPHORUS (BEAKER) (test xred=402) 3.4 mg/dL 2.3-4.7 [id number] 06:38:00 Test Item Value Reference Range Comments MAGNESIUM (BEAKER) (test ijkx=394) 1.8 mg/dL 1.6-2.6 HEPATIC FUNCTION [id number] 06:38:00 Test Item Value Reference Range Comments TOTAL PROTEIN (BEAKER) (test gwgx=658) 6.7 gm/dL 6.0-8.3 ALBUMIN (BEAKER) (test jtet=8791) 3.1 g/dL 3.5-5.0 BILIRUBIN TOTAL (BEAKER) (test euxs=089) 1.7 mg/dL 0.2-1.2 BILIRUBIN DIRECT (BEAKER) (test lyrd=854) 0.8 mg/dL 0.1-0.5 ALKALINE PHOSPHATASE (BEAKER) (test gqvg=368) 108 U/L 40-150 AST (SGOT) (BEAKER) (test adpx=969) 35 U/L 5-34 ALT (SGPT) (BEAKER) (test oxuu=780) 24 U/L 6-55 COMPREHENSIVE METABOLIC [id number] 06:38:00 Test Item Value Reference Range Comments TOTAL PROTEIN (BEAKER) 6.7 gm/dL 6.0-8.3 (test vizf=279) ALBUMIN (BEAKER) (test 3.1 g/dL 3.5-5.0 wgoz=4717) ALKALINE PHOSPHATASE 108 U/L 40-150 (BEAKER) (test tnqe=767) BILIRUBIN TOTAL (BEAKER) 1.7 mg/dL 0.2-1.2 (test opss=174) SODIUM (BEAKER) (test 135 meq/L 136-145 zoul=288) POTASSIUM (BEAKER) (test 4.2 meq/L 3.5-5.1 mnvv=763) CHLORIDE (BEAKER) (test 105 meq/L 98-107 kihe=722) CO2 (BEAKER) (test 25 meq/L 22-29 itza=202) BLOOD UREA NITROGEN 38 mg/dL 7-21 (BEAKER) (test iork=828) CREATININE (BEAKER) (test 1.27 mg/dL 0.57-1.25 uebu=625) GLUCOSE RANDOM (BEAKER) 132 mg/dL 70-105 (test ycxm=921) CALCIUM (BEAKER) (test 9.0 mg/dL 8.4-10.2 aynq=377) AST (SGOT) (BEAKER) (test 35 U/L 5-34 wfsh=322) ALT (SGPT) (BEAKER) (test 24 U/L 6-55 mfjr=606) EGFR (BEAKER) (test 56 mL/min/1.73 sq m ESTIMATED GFR IS NOT eabh=3333) ACCURATE CREATININE CLEARANCE IN PREDICTING GLOMERULAR FILTRATION RATE. ESTIMATED GFR IS NOT APPLICABLE FOR DIALYSIS PATIENTS. [id number] 06:27:00 Test Item Value Reference Range Comments PROTIME (BEAKER) (test bnrs=801) 16.9 seconds 11.7-14.7 INR (BEAKER) (test caug=894) 1.4 <=5.9 PARTIAL THROMBOPLASTIN TIME (BEAKER) (test 36.9 seconds 22.5-36.0 yieq=547) RECOMMENDED COUMADIN/WARFARIN INR THERAPY RANGESSTANDARD DOSE: 2.0 - 3.0 Includes: PROPHYLAXIS forvenous thrombosis, systemic embolization; TREATMENT for venous thrombosis and/or pulmonary embolus.HIGH RISK: Target INR is 2.5-3.5 for patients with mechanical heart valves.PROTHROMBIN [id number] 06:26: 00 Test Item Value Reference Range Comments PROTIME (BEAKER) (test ztpq=265) 16.9 seconds 11.7-14.7 INR (BEAKER) (test gwla=118) 1.4 <=5.9 RECOMMENDED COUMADIN/WARFARIN INR THERAPY RANGESSTANDARD DOSE: 2.0 - 3.0 Includes: PROPHYLAXIS forvenous thrombosis, systemic embolization; TREATMENT for venous thrombosis and/or pulmonary embolus.HIGH RISK: Target INR is 2.5-3.5 for patients with mechanical heart valves.POCT-GLUCOSE [id number] 21:26:00 Test Item Value Reference Range Comments POC-GLUCOSE METER (BEAKER) 289 mg/dL 70-110 TESTED AT [address] (test tuel=0866) [place] [address] POCT-GLUCOSE [id number] 17:50:00 Test Item Value Reference Range Comments POC-GLUCOSE METER (BEAKER) 197 mg/dL 70-110 TESTED AT [address] (test tlao=0148) [place] [address] POCT-GLUCOSE [id number] 12:49:00 Test Item Value Reference Range Comments POC-GLUCOSE METER (BEAKER) 356 mg/dL 70-110 Notified DIMA SIFUENTES/TESTED AT [facility] (test blqq=5397) [address] [place] [address] [id number] 12:38:00 Test Item Value Reference Range Comments PREALBUMIN (BEAKER) (test ikqa=845) 11 mg/dL 14-45 Listed for OLT - nutrition surveillance ([facility])HEMOGLOBIN [id number] 09:57:00 Test Item Value Reference Range Comments HEMOGLOBIN A1C (BEAKER) (test gltj=747) 7.8 % 4.3-6.1 POCT-GLUCOSE [id number] 08:25:00 Test Item Value Reference Range Comments POC-GLUCOSE METER (BEAKER) 120 mg/dL 70-110 TESTED AT [address] (test zwdt=5430) [place] [address] [id number] 07:53:00 Test Item Value Reference Range Comments PHOSPHORUS (BEAKER) (test vfgt=340) 3.1 mg/dL 2.3-4.7 [id number] 07:53:00 Test Item Value Reference Range Comments MAGNESIUM (BEAKER) (test qdtz=522) 1.7 mg/dL 1.6-2.6 BASIC METABOLIC [id number] 07:53:00 Test Item Value Reference Range Comments SODIUM (BEAKER) (test 136 meq/L 136-145 jzlv=389) POTASSIUM (BEAKER) (test 4.3 meq/L 3.5-5.1 mtvw=306) CHLORIDE (BEAKER) (test 103 meq/L 98-107 riqt=860) CO2 (BEAKER) (test 25 meq/L 22-29 zoif=554) BLOOD UREA NITROGEN 38 mg/dL 7-21 (BEAKER) (test jklo=986) CREATININE (BEAKER) (test 1.33 mg/dL 0.57-1.25 cshy=332) GLUCOSE RANDOM (BEAKER) 120 mg/dL 70-105 (test zghk=363) CALCIUM (BEAKER) (test 9.3 mg/dL 8.4-10.2 ridn=138) EGFR (BEAKER) (test 53 mL/min/1.73 sq m ESTIMATED GFR IS NOT xkjf=6649) ACCURATE CREATININE CLEARANCE IN PREDICTING GLOMERULAR FILTRATION RATE. ESTIMATED GFR IS NOT APPLICABLE FOR DIALYSIS PATIENTS. Specimen slightly ictericHEPATIC FUNCTION [id number] 07:53:00 Test Item Value Reference Range Comments TOTAL PROTEIN (BEAKER) (test prpd=349) 7.0 gm/dL 6.0-8.3 ALBUMIN (BEAKER) (test jvkx=9801) 2.9 g/dL 3.5-5.0 BILIRUBIN TOTAL (BEAKER) (test wwnp=641) 2.0 mg/dL 0.2-1.2 BILIRUBIN DIRECT (BEAKER) (test zlsh=142) 0.9 mg/dL 0.1-0.5 ALKALINE PHOSPHATASE (BEAKER) (test vacs=383) 114 U/L 40-150 AST (SGOT) (BEAKER) (test iuvn=346) 42 U/L 5-34 ALT (SGPT) (BEAKER) (test egnp=307) 28 U/L 6-55 Specimen slightly ictericPT/[id number] 07:46:00 Test Item Value Reference Range Comments PROTIME (BEAKER) (test knxb=543) 16.6 seconds 11.7-14.7 INR (BEAKER) (test neii=702) 1.4 <=5.9 PARTIAL THROMBOPLASTIN TIME (BEAKER) (test 39.3 seconds 22.5-36.0 telb=547) RECOMMENDED COUMADIN/WARFARIN INR THERAPY RANGESSTANDARD DOSE: 2.0 - 3.0 Includes: PROPHYLAXIS forvenous thrombosis, systemic embolization; TREATMENT for venous thrombosis and/or pulmonary embolus.HIGH RISK: Target INR is 2.5-3.5 for patients with mechanical heart valves.PROTHROMBIN TIME/[id number] 07:45: 00 Test Item Value Reference Range Comments PROTIME (BEAKER) (test xbmc=788) 16.6 seconds 11.7-14.7 INR (BEAKER) (test vamh=992) 1.4 <=5.9 RECOMMENDED COUMADIN/WARFARIN INR THERAPY RANGESSTANDARD DOSE: 2.0 - 3.0 Includes: PROPHYLAXIS forvenous thrombosis, systemic embolization; TREATMENT for venous thrombosis and/or pulmonary embolus.HIGH RISK: Target INR is 2.5-3.5 for patients with mechanical heart valves.CALCIUM, [id number] 07:42:00 Test Item Value Reference Range Comments CALCIUM IONIZED (BEAKER) (test xicv=223) 1.18 mmol/L 1.12-1.27 PH, BLOOD (BEAKER) (test nime=5312) 7.42 CBC W/PLT COUNT & AUTO [id number] 07:37:00 Test Item Value Reference Range Comments WHITE BLOOD CELL COUNT (BEAKER) (test ecct=586) 6.3 K/ L 3.5-10.5 RED BLOOD CELL COUNT (BEAKER) (test xdst=377) 3.06 M/ L 4.63-6.08 HEMOGLOBIN (BEAKER) (test ylmo=208) 9.8 GM/DL 13.7-17.5 HEMATOCRIT (BEAKER) (test xixf=981) 30.0 % 40.1-51.0 MEAN CORPUSCULAR VOLUME (BEAKER) (test ubnc=559) 98.0 fL 79.0-92.2 MEAN CORPUSCULAR HEMOGLOBIN (BEAKER) (test 32.0 pg 25.7-32.2 azsq=419) MEAN CORPUSCULAR HEMOGLOBIN CONC (BEAKER) (test 32.7 GM/DL 32.3-36.5 nwoq=505) RED CELL DISTRIBUTION WIDTH (BEAKER) (test 14.2 % 11.6-14.4 uzoi=876) PLATELET COUNT (BEAKER) (test xubs=804) 49 K/CU MM 150-450 MEAN PLATELET VOLUME (BEAKER) (test kpij=984) 10.6 fL 9.4-12.4 NUCLEATED RED BLOOD CELLS (BEAKER) (test 0 /100 WBC 0-0 xllw=644) NEUTROPHILS RELATIVE PERCENT (BEAKER) (test 72 % vtml=395) LYMPHOCYTES RELATIVE PERCENT (BEAKER) (test 11 % qeio=779) MONOCYTES RELATIVE PERCENT (BEAKER) (test 11 % iwre=326) EOSINOPHILS RELATIVE PERCENT (BEAKER) (test 6 % wahn=509) BASOPHILS RELATIVE PERCENT (BEAKER) (test 1 % ihzk=662) NEUTROPHILS ABSOLUTE COUNT (BEAKER) (test 4.47 K/ L 1.78-5.38 fdja=357) LYMPHOCYTES ABSOLUTE COUNT (BEAKER) (test 0.67 K/ L 1.32-3.57 vrto=398) MONOCYTES ABSOLUTE COUNT (BEAKER) (test dbfj=481) 0.66 K/ L 0.30-0.82 EOSINOPHILS ABSOLUTE COUNT (BEAKER) (test 0.40 K/ L 0.04-0.54 aolh=599) BASOPHILS ABSOLUTE COUNT (BEAKER) (test nnlu=233) 0.03 K/ L 0.01-0.08 IMMATURE GRANULOCYTES-RELATIVE PERCENT (BEAKER) 0 % 0-1 (test xldv=4586) RAD, MANDIBLE, MIN 4 [id number] 22:46:00Reason for exam:->rule out infectionFINAL REPORT EXAMINATION: [...] pneumatized. The orbits are unremarkable. Signed: Augie Vilchis MDReport Verified Date/Time: 06/19/2017 22:46:13 Reading Location: [address] Reading Room U/S, ABDOMINAL, [id number] 18:18:00Reason for exam:->ALTERED MENTAL STATUSFINAL REPORT Limited abdomen ultrasound. Multiple transaxial and longitudinalimages were obtained through the patient's abdomen. Nuchal diagnosis ascites. There is no evidence of a drainable fluid collection. The patient's paracentesis was canceled. Signed: Ingrid MelgarortVerified Date/Time: 06/19/2017 18:18:55 Reading Location: [facility] [id number] Ultrasound Reading Room POCT-GLUCOSE [id number] 16:09:00 Test Item Value Reference Range Comments POC-GLUCOSE METER (BEAKER) 206 mg/dL 70-110 TESTED AT [address] (test rbka=3221) [facility] [address] CT, BRAIN, WITHOUT [id number] 15:26:00Reason for exam:-> ConfusionFINAL REPORT CT head [...] chronic microvascular ischemic changes. Signed: Jonnie Keith Verified Date/Time: 06/19/2017 15:26:22 Reading Location: [facility] [id number] Consult Reading Room HEPATIC FUNCTION [id number] 15:17:00 Test Item Value Reference Range Comments TOTAL PROTEIN (BEAKER) (test hkxj=854) 7.1 gm/dL 6.0-8.3 ALBUMIN (BEAKER) (test crdd=4145) 3.0 g/dL 3.5-5.0 BILIRUBIN TOTAL (BEAKER) (test onza=202) 1.8 mg/dL 0.2-1.2 BILIRUBIN DIRECT (BEAKER) (test hrxv=417) 0.9 mg/dL 0.1-0.5 ALKALINE PHOSPHATASE (BEAKER) (test ppuj=549) 139 U/L 40-150 AST (SGOT) (BEAKER) (test qzsz=698) 46 U/L 5-34 ALT (SGPT) (BEAKER) (test yhzf=167) 34 U/L 6-55 Order for age greater than 18 with no history of head injury or liver disease patients of any ageOrder for age greater than 18 with no history of head injury or liver disease patients of any agePOCT-GLUCOSE [id number] 15:12:00 Test Item Value Reference Range Comments POC-GLUCOSE METER (BEAKER) 446 mg/dL 70-110 TESTED AT [address] (test aokp=3970) [facility] [address] POCT-GLUCOSE [id number] 15:12:00 Test Item Value Reference Range Comments POC-GLUCOSE METER (BEAKER) 497 mg/dL 70-110 TESTED AT [address] (test imxv=7652) [facility] [address] BLOOD GAS, [id number] 14:59:00 Test Item Value Reference Range Comments PH VENOUS (BEAKER) (test ozpu=759) 7.37 7.32-7.42 PCO2 VENOUS (BEAKER) (test nwey=690) 50 mm Hg 41-51 PO2 VENOUS (BEAKER) (test pcod=562) 31 mm Hg 25-40 O2 SATURATION VENOUS (BEAKER) (test dwzx=769) 56.7 % 40.0-70.0 HCO3 VENOUS (BEAKER) (test wjux=615) 28 mmol/L 21-29 BASE EXCESS VENOUS (BEAKER) (test wjns=985) 2.1 mmol/L -2.0-3.0 PATIENT TEMPERATURE (BEAKER) (test igiw=5536) 37.0 FIO2 (BEAKER) (test dtbc=8541) 21 URINALYSIS W/ [id number] 14:41:00 Test Item Value Reference Range Comments COLOR (BEAKER) (test fcuk=401) Light Yellow CLARITY (BEAKER) (test uhxs=069) Clear SPECIFIC GRAVITY UA (BEAKER) (test eskh=767) 1.004 1.001-1.035 PH UA (BEAKER) (test qctg=479) 5.0 5.0-8.0 PROTEIN UA (BEAKER) (test ieue=636) Negative Negative GLUCOSE UA (BEAKER) (test pymo=155) 500 mg/dL Negative KETONES UA (BEAKER) (test xiwy=860) Negative Negative BILIRUBIN UA (BEAKER) (test gqam=262) Negative Negative BLOOD UA (BEAKER) (test ijwq=711) Negative Negative NITRITE UA (BEAKER) (test mjvr=399) Negative Negative LEUKOCYTE ESTERASE UA (BEAKER) (test tnup=854) Negative Negative UROBILINOGEN UA (BEAKER) (test amcc=623) 0.2 mg/dL 0.2-1.0 RBC UA (BEAKER) (test wcxb=554) 0 /HPF WBC UA (BEAKER) (test vfgy=543) 3 /HPF SOURCE(BEAKER) (test mcjp=2058) RAD, CHEST, 1 VIEW, NON [id number] 14:15:00Reason for exam:->ALTERED MENTAL STATUSShould this be [...] MDReport Verified Date/Time: 06/19/2017 14:15:26 Reading Location: [facility] Reading Room Electronically signed by: ANDIE PINON M.D. on 2016 02:15 [facility] [id number] 14:02:00 Test Item Value Reference Range Comments SODIUM (BEAKER) (test 131 meq/L 136-145 gnig=662) POTASSIUM (BEAKER) (test 4.5 meq/L 3.5-5.1 jace=320) CHLORIDE (BEAKER) (test 99 meq/L 98-107 nekc=285) CO2 (BEAKER) (test 26 meq/L 22-29 edtq=482) BLOOD UREA NITROGEN 40 mg/dL 7-21 (BEAKER) (test jphk=399) CREATININE (BEAKER) (test 1.73 mg/dL 0.57-1.25 tyhf=997) GLUCOSE RANDOM (BEAKER) 468 mg/dL 70-105 (test mldo=872) CALCIUM (BEAKER) (test 9.7 mg/dL 8.4-10.2 thjj=537) EGFR (BEAKER) (test 39 mL/min/1.73 sq m ESTIMATED GFR IS NOT ilto=4331) ACCURATE CREATININE CLEARANCE IN PREDICTING GLOMERULAR FILTRATION RATE. ESTIMATED GFR IS NOT APPLICABLE FOR DIALYSIS PATIENTS. Order for age greater than 18 with no history of head injury or liver disease patients of any ageOrder for age greater than 18 with no history of head injury or liver disease patients of any ageRAPID DRUG SCREEN, [id number] 13:57:00 Test Item Value Reference Range Comments BARBITURATE URINE (BEAKER) (test bwfx=120) Negative Negative BENZODIAZEPINE SCREEN URINE (BEAKER) (test Negative Negative vtdx=839) COCAINE (METAB.) SCREEN (BEAKER) (test asiy=5322) Negative Negative METHADONE SCREEN (BEAKER) (test gnic=6010) Negative Negative OPIATE SCREEN URINE (BEAKER) (test ggxs=249) Negative Negative CANNABINOID SCREEN URINE (BEAKER) (test lefq=853) Negative Negative AMPH/METHAMPH SCREEN (BEAKER) (test lzfb=8565) Negative Negative PHENCYCLIDINE SCREEN URINE (BEAKER) (test eaod=001) Negative Negative OXYCODONE SCREEN URINE (BEAKER) (test yavi=1600) Negative Negative DRUG CUTOFF CONC.Cocaine 300 ng/mL Cannabinoid 50 ng/mL Benzodiazepine 200 ng/mLBarbiturate 200 ng/ mLPhencyclidine 25 ng/mLOpiate 300 ng/mLMethadone 300 ng/mLAmphetamine/ 1000 ng/mL MethamphetamineOxycodone 300 ng/mLThis assay provides an unconfirmed qualitative test result for the clinical management of patients in emergency situations. Chain of custody not maintained. Some vwob-swh-indmqfa medications, as well as adulterants, may cause inaccurate results. Clinical correlation should be applied. A more comprehensive drug screen or confirmation of a detected drug may be performed upon request.CREATINE KINASE (CK), TOTAL AND [id number] 13:48:00 Test Item Value Reference Range Comments CREATINE KINASE TOTAL (BEAKER) (test drbs=248) 184 U/L 29-200 CREATINE KINASE-MB (BEAKER) (test uskw=004) 4.4 ng/mL 0.0-6.6 CREATINE KINASE-MB INDEX (BEAKER) (test norq=316) 2.4 % CK-MB Reference Range:<6.7 Normal6.7-10.0 Borderline>10.0 [...] or liver disease patients of any ageTROPONIN [id number] 13:48:00 Test Item Value Reference Range Comments TROPONIN I (BEAKER) (test cmyo=725) 0.01 ng/mL 0.00-0.03 Troponin I (TnI) levels [...] or liver disease patients of any ageKETONE, [id number] 13:44:00 Test Item Value Reference Range Comments KETONES, BLOOD (BEAKER) (test expx=9308) 0.2 mmol/L <0.4 [id number] 13:42:00 Test Item Value Reference Range Comments PHOSPHORUS (BEAKER) (test xyzd=202) 3.5 mg/dL 2.3-4.7 Order for age greater than 18 with no history of head injury or liver disease patients of any ageOrder for age greater than 18 with no history of head injury or liver disease patients of any [id number] 13:42:00 Test Item Value Reference Range Comments MAGNESIUM (BEAKER) (test fdeu=797) 1.7 mg/dL 1.6-2.6 Order for age greater than 18 with no history of head injury or liver disease patients of any ageOrder for age greater than 18 with no history of head injury or liver disease patients of any [id number] 13:34:00 Test Item Value Reference Range Comments AMMONIA (BEAKER) (test kwnu=768) 27 mol/L 18-72 [id number] 13:18:00 Test Item Value Reference Range Comments PROTIME (BEAKER) (test fziz=941) 16.5 seconds 11.7-14.7 INR (BEAKER) (test ellv=103) 1.3 <=5.9 PARTIAL THROMBOPLASTIN TIME (BEAKER) (test 34.2 seconds 22.5-36.0 rccs=313) RECOMMENDED COUMADIN/WARFARIN INR THERAPY RANGESSTANDARD DOSE: 2.0 - 3.0 Includes: PROPHYLAXIS forvenous thrombosis, systemic embolization; TREATMENT for venous thrombosis and/or pulmonary embolus.HIGH RISK: Target INR is 2.5-3.5 for patients with mechanical heart valves.CBC W/PLT COUNT & AUTO [id number] 13:13:00 Test Item Value Reference Range Comments WHITE BLOOD CELL COUNT (BEAKER) (test qtge=743) 5.9 K/ L 3.5-10.5 RED BLOOD CELL COUNT (BEAKER) (test whse=726) 3.12 M/ L 4.63-6.08 HEMOGLOBIN (BEAKER) (test fojh=166) 10.2 GM/DL 13.7-17.5 HEMATOCRIT (BEAKER) (test dcpv=631) 31.2 % 40.1-51.0 MEAN CORPUSCULAR VOLUME (BEAKER) (test hlvt=044) 100.0 fL 79.0-92.2 MEAN CORPUSCULAR HEMOGLOBIN (BEAKER) (test 32.7 pg 25.7-32.2 irav=172) MEAN CORPUSCULAR HEMOGLOBIN CONC (BEAKER) (test 32.7 GM/DL 32.3-36.5 ubjw=409) RED CELL DISTRIBUTION WIDTH (BEAKER) (test 14.3 % 11.6-14.4 lhem=826) PLATELET COUNT (BEAKER) (test ylbr=996) 49 K/CU MM 150-450 MEAN PLATELET VOLUME (BEAKER) (test hdpf=889) 11.7 fL 9.4-12.4 NUCLEATED RED BLOOD CELLS (BEAKER) (test 0 /100 WBC 0-0 qzmv=884) NEUTROPHILS RELATIVE PERCENT (BEAKER) (test 76 % zfmt=389) LYMPHOCYTES RELATIVE PERCENT (BEAKER) (test 10 % aztx=671) MONOCYTES RELATIVE PERCENT (BEAKER) (test 9 % fblf=855) EOSINOPHILS RELATIVE PERCENT (BEAKER) (test 4 % mpif=911) BASOPHILS RELATIVE PERCENT (BEAKER) (test 0 % kfjo=770) NEUTROPHILS ABSOLUTE COUNT (BEAKER) (test 4.46 K/ L 1.78-5.38 nwhx=977) LYMPHOCYTES ABSOLUTE COUNT (BEAKER) (test 0.57 K/ L 1.32-3.57 yqcx=036) MONOCYTES ABSOLUTE COUNT (BEAKER) (test wfpz=707) 0.55 K/ L 0.30-0.82 EOSINOPHILS ABSOLUTE COUNT (BEAKER) (test 0.26 K/ L 0.04-0.54 nncw=597) BASOPHILS ABSOLUTE COUNT (BEAKER) (test fkds=677) 0.02 K/ L 0.01-0.08 IMMATURE GRANULOCYTES-RELATIVE PERCENT (BEAKER) 1 % 0-1 (test zwdy=4988) RAD, BONE DENSITY [id number] 13:07:00Reason for Exam:->screening for osteoporosis. history of osteopenia. cirrhosis, on liver transplant listFINAL REPORT Bone mineral density study 06/04/2017. CLINICAL INDICATION: Screening for osteoporosis. History of osteopenia. Cirrhosis, on liver transplant list. COMPARISON: 03/10/2014 FINDINGS: Evaluation of the left and right femoral necks and lumbar spine was performed utilizing a [employer] Advance bone densitometer. Data reflect young adult matched [...] a 11.8% decrease. Signed : Lilliam Keller Verified Date/Time: 06/04/2017 13:07:47 Reading Location: [facility] Electronically signed by: LILLIAM KELLER on 01:07 PMRAD, CHEST, 2 [id number] 12:50:00Reason for Exam:-> cough x2-3weeksLocation->[facility] HospitalFINAL RE[facility] INDICATION: cough x2-3weeks COMPARISON: [...] No evidence of pneumonia. Signed: Nakul Blankenship Verified Date/Time: 04/30/2017 12:50:04 Reading Location: [address] Radiology Reading Room ALPHA FETOPROTEIN (AFP), TUMOR [id number] 16:38:00 Test Item Value Reference Range Comments ALPHA-FETOPROTEIN (BEAKER) (test xnyh=1304) < ng/mL <10.0 Effective 06/01/2014: Reference Range ChangeNew: <10.0 Previous: 0.0- 8.0COMPREHENSIVE METABOLIC [id number] 15:51:00 Test Item Value Reference Range Comments TOTAL PROTEIN (BEAKER) 7.5 gm/dL 6.0-8.3 (test mjrk=827) ALBUMIN (BEAKER) (test 3.1 g/dL 3.5-5.0 qnfp=1364) ALKALINE PHOSPHATASE 125 U/L 40-150 (BEAKER) (test izhu=212) BILIRUBIN TOTAL (BEAKER) 1.8 mg/dL 0.2-1.2 (test hbga=905) SODIUM (BEAKER) (test 135 meq/L 136-145 hclo=742) POTASSIUM (BEAKER) (test 3.9 meq/L 3.5-5.1 iiuz=986) CHLORIDE (BEAKER) (test 100 meq/L 98-107 tdkt=874) CO2 (BEAKER) (test 26 meq/L 22-29 bbym=208) BLOOD UREA NITROGEN 49 mg/dL 7-21 (BEAKER) (test brpx=331) CREATININE (BEAKER) (test 1.74 mg/dL 0.57-1.25 zsfa=499) GLUCOSE RANDOM (BEAKER) 170 mg/dL 70-105 (test tecu=573) CALCIUM (BEAKER) (test 9.0 mg/dL 8.4-10.2 jawg=513) AST (SGOT) (BEAKER) (test 55 U/L 5-34 navo=371) ALT (SGPT) (BEAKER) (test 32 U/L 6-55 kioy=978) EGFR (BEAKER) (test 39 mL/min/1.73 sq m ESTIMATED GFR IS NOT ruwe=5667) ACCURATE CREATININE CLEARANCE IN PREDICTING GLOMERULAR FILTRATION RATE. ESTIMATED GFR IS NOT APPLICABLE FOR DIALYSIS PATIENTS. BILIRUBIN, [id number] 15:51:00 Test Item Value Reference Range Comments BILIRUBIN DIRECT (BEAKER) (test eokt=356) 1.0 mg/dL 0.1-0.5 PROTHROMBIN [id number] 15:37:00 Test Item Value Reference Range Comments PROTIME (BEAKER) (test gyax=921) 16.7 seconds 11.7-14.7 INR (BEAKER) (test dgxm=049) 1.4 <=5.9 RECOMMENDED COUMADIN/WARFARIN INR THERAPY RANGESSTANDARD DOSE: 2.0 - 3.0 Includes: PROPHYLAXIS forvenous thrombosis, systemic embolization; TREATMENT for venous thrombosis and/or pulmonary embolus.HIGH RISK: Target INR is 2.5-3.5 for patients with mechanical heart valves.CBC W/PLT COUNT & AUTO [id number] 15:33:00 Test Item Value Reference Range Comments WHITE BLOOD CELL COUNT 5.3 K/ L 3.5-10.5 (BEAKER) (test rcbr=088) RED BLOOD CELL COUNT (BEAKER) 2.62 M/ L 4.63-6.08 (test jusj=795) HEMOGLOBIN (BEAKER) (test 8.8 GM/DL 13.7-17.5 chtl=020) HEMATOCRIT (BEAKER) (test 26.1 % 40.1-51.0 ytyy=116) MEAN CORPUSCULAR VOLUME 99.6 fL 79.0-92.2 (BEAKER) (test inof=995) MEAN CORPUSCULAR HEMOGLOBIN 33.6 pg 25.7-32.2 (BEAKER) (test xhvy=213) MEAN CORPUSCULAR HEMOGLOBIN 33.7 GM/DL 32.3-36.5 CONC (BEAKER) (test tboi=264) RED CELL DISTRIBUTION WIDTH 16.8 % 11.6-14.4 (BEAKER) (test djwh=757) PLATELET COUNT (BEAKER) (test 37 K/CU MM 150-450 mzko=351) MEAN PLATELET VOLUME (BEAKER) fL 9.4-12.4 Unable to report due to (test sadg=591) abnormal Platelet population distribution. NUCLEATED RED BLOOD CELLS 0 /100 WBC 0-0 (BEAKER) (test exaf=835) NEUTROPHILS RELATIVE PERCENT 77 % (BEAKER) (test gybc=804) LYMPHOCYTES RELATIVE PERCENT 7 % (BEAKER) (test hgpf=466) MONOCYTES RELATIVE PERCENT 8 % (BEAKER) (test ihba=848) EOSINOPHILS RELATIVE PERCENT 7 % (BEAKER) (test oliw=148) BASOPHILS RELATIVE PERCENT 0 % (BEAKER) (test iqnv=464) NEUTROPHILS ABSOLUTE COUNT 4.07 K/ L 1.78-5.38 (BEAKER) (test uxqn=450) LYMPHOCYTES ABSOLUTE COUNT 0.39 K/ L 1.32-3.57 (BEAKER) (test uesl=147) MONOCYTES ABSOLUTE COUNT 0.43 K/ L 0.30-0.82 (BEAKER) (test uqgf=405) EOSINOPHILS ABSOLUTE COUNT 0.37 K/ L 0.04-0.54 (BEAKER) (test vvll=565) BASOPHILS ABSOLUTE COUNT 0.01 K/ L 0.01-0.08 (BEAKER) (test gdit=896) IMMATURE GRANULOCYTES-RELATIVE 0 % 0-1 PERCENT (BEAKER) (test yxji=2140) [id number] 14:33:00 Test Item Value Reference Range Comments HEMOGLOBIN (BEAKER) (test vdpp=097) 9.3 GM/DL 13.0-16.8 PLATELET [id number] 14:33:00 Test Item Value Reference Range Comments PLATELET COUNT (BEAKER) (test qgxl=167) 48 K/CU MM 150-430 ALKALINE [id number] 14:27:00 Test Item Value Reference Range Comments ALKALINE PHOSPHATASE (BEAKER) (test svky=722) 159 U/L 40-150 Effective 06/01/2014: Alkaline Phosphatase Reference Range Change-Adult onlyNew : 40-150 Previous: [id number] 14:27:00 Test Item Value Reference Range Comments SODIUM (BEAKER) (test dgxg=061) 131 meq/L 136-145 POTASSIUM (BEAKER) (test jyzf=917) 4.4 meq/L 3.5-5.1 CHLORIDE (BEAKER) (test zcbt=514) 98 meq/L 98-107 CO2 (BEAKER) (test twkg=694) 28 meq/L 22-29 AST (SGOT)2017-01-04 14:27:00 Test Item Value Reference Range Comments AST (SGOT) (BEAKER) (test gmjz=184) 60 U/L 5-34 BUN AND [id number] 14:27:00 Test Item Value Reference Range Comments BLOOD UREA NITROGEN 48 mg/dL 7-21 (BEAKER) (test siel=353) CREATININE (BEAKER) (test 1.43 mg/dL 0.57-1.25 xzcr=524) EGFR (BEAKER) (test 49 mL/min/1.73 sq m ESTIMATED GFR IS NOT svbk=4472) ACCURATE CREATININE CLEARANCE IN PREDICTING GLOMERULAR FILTRATION RATE. ESTIMATED GFR IS NOT APPLICABLE FOR DIALYSIS PATIENTS. [id number] 14:13:00 Test Item Value Reference Range Comments PROTIME (BEAKER) (test ulff=358) 16.7 seconds 11.7-14.7 INR (BEAKER) (test eqob=114) 1.4 <=5.9 PARTIAL THROMBOPLASTIN TIME (BEAKER) (test 35.7 seconds 22.5-36.0 kvot=516) RECOMMENDED COUMADIN/WARFARIN INR THERAPY RANGESSTANDARD DOSE: 2.0 - 3.0 Includes: PROPHYLAXIS forvenous thrombosis, systemic embolization; TREATMENT for venous thrombosis and/or pulmonary embolus.HIGH RISK: Target INR is 2.5-3.5 for patients with mechanical heart valves.B-TYPE NATRIURETIC FACTOR (BNP)2016-09 13:43:00 Test Item Value Reference Range Comments B-TYPE NATRIURETIC PEPTIDE (BEAKER) (test 454 pg/mL 0-100 lpxb=752) [id number] 13:34:00 Test Item Value Reference Range Comments MAGNESIUM (BEAKER) (test gfqq=812) 1.6 mg/dL 1.6-2.6 BASIC METABOLIC [id number] 13:34:00 Test Item Value Reference Range Comments SODIUM (BEAKER) (test 133 meq/L 136-145 xheu=182) POTASSIUM (BEAKER) (test 4.9 meq/L 3.5-5.1 xdfc=942) CHLORIDE (BEAKER) (test 104 meq/L 98-107 wtps=104) CO2 (BEAKER) (test 22 meq/L 22-29 gzrx=678) BLOOD UREA NITROGEN 23 mg/dL 7-21 (BEAKER) (test rzmw=094) CREATININE (BEAKER) (test 1.06 mg/dL 0.57-1.25 rlow=773) GLUCOSE RANDOM (BEAKER) 114 mg/dL 70-105 (test cjew=967) CALCIUM (BEAKER) (test 8.8 mg/dL 8.4-10.2 hlpc=193) EGFR (BEAKER) (test 70 mL/min/1.73 sq m ESTIMATED GFR IS NOT klot=2928) ACCURATE CREATININE CLEARANCE IN PREDICTING GLOMERULAR FILTRATION RATE. ESTIMATED GFR IS NOT APPLICABLE FOR DIALYSIS PATIENTS. BLOOD [id number] 23:00:00 Test Item Value Reference Range Comments CULTURE (BEAKER) (test jtpb=3378) No growth in 5 days URINE [id number] 14:21:00 Test Item Value Reference Range Comments CULTURE (BEAKER) (test ztcg=2114) No growth BLOOD [id number] 11:00:00 Test Item Value Reference Range Comments CULTURE (BEAKER) (test opwz=9948) No growth in 5 days BLOOD [id number] 05:00:00 Test Item Value Reference Range Comments CULTURE (BEAKER) (test qftn=1083) No growth in 5 days POCT-GLUCOSE [id number] 08:53:00 Test Item Value Reference Range Comments POC-GLUCOSE METER (BEAKER) 114 mg/dL 70-110 TESTED AT [facility] [address] [facility] (test atsy=0021) [facility] [address] [id number] 05:32:00 Test Item Value Reference Range Comments PHOSPHORUS (BEAKER) (test uswh=068) 2.4 mg/dL 2.3-4.7 [id number] 05:32:00 Test Item Value Reference Range Comments MAGNESIUM (BEAKER) (test afou=632) 2.0 mg/dL 1.6-2.6 BASIC METABOLIC [id number] 05:32:00 Test Item Value Reference Range Comments SODIUM (BEAKER) (test 133 meq/L 136-145 ikur=548) POTASSIUM (BEAKER) (test 3.9 meq/L 3.5-5.1 fyyb=674) CHLORIDE (BEAKER) (test 104 meq/L 98-107 osgm=146) CO2 (BEAKER) (test 23 meq/L 22-29 dgzs=681) BLOOD UREA NITROGEN 25 mg/dL 7-21 (BEAKER) (test snci=474) CREATININE (BEAKER) (test 1.17 mg/dL 0.57-1.25 znpr=516) GLUCOSE RANDOM (BEAKER) 127 mg/dL 70-105 (test dbda=001) CALCIUM (BEAKER) (test 8.3 mg/dL 8.4-10.2 nxqs=415) EGFR (BEAKER) (test 62 mL/min/1.73 sq m ESTIMATED GFR IS NOT pvlj=2844) ACCURATE CREATININE CLEARANCE IN PREDICTING GLOMERULAR FILTRATION RATE. ESTIMATED GFR IS NOT APPLICABLE FOR DIALYSIS PATIENTS. HEPATIC FUNCTION [id number] 05:32:00 Test Item Value Reference Range Comments TOTAL PROTEIN (BEAKER) (test xdqq=059) 5.7 gm/dL 6.0-8.3 ALBUMIN (BEAKER) (test blei=3981) 2.6 g/dL 3.5-5.0 BILIRUBIN TOTAL (BEAKER) (test kwyz=907) 1.6 mg/dL 0.2-1.2 BILIRUBIN DIRECT (BEAKER) (test oofn=404) 0.8 mg/dL 0.1-0.5 ALKALINE PHOSPHATASE (BEAKER) (test mymv=369) 91 U/L 40-150 AST (SGOT) (BEAKER) (test phaw=913) 28 U/L 5-34 ALT (SGPT) (BEAKER) (test duul=754) 13 U/L 6-55 CALCIUM, [id number] 05:21:00 Test Item Value Reference Range Comments CALCIUM IONIZED (BEAKER) (test ffzp=603) 1.05 mmol/L 1.12-1.27 PH, BLOOD (BEAKER) (test afnr=4915) 7.46 CBC W/PLT COUNT & AUTO [id number] 05:08:00 Test Item Value Reference Range Comments WHITE BLOOD CELL COUNT (BEAKER) (test evhv=948) 6.0 K/ L 4.0-10.0 RED BLOOD CELL COUNT (BEAKER) (test ophu=522) 2.80 M/ L 4.20-5.80 HEMOGLOBIN (BEAKER) (test holx=702) 8.3 GM/DL 13.0-16.8 HEMATOCRIT (BEAKER) (test mcla=571) 25.4 % 40.0-50.0 MEAN CORPUSCULAR VOLUME (BEAKER) (test yrdx=002) 90.6 fL 82.0-98.0 MEAN CORPUSCULAR HEMOGLOBIN (BEAKER) (test 29.5 pg 27.0-33.0 lvqn=909) MEAN CORPUSCULAR HEMOGLOBIN CONC (BEAKER) (test 32.5 GM/DL 32.0-36.0 sfgv=904) RED CELL DISTRIBUTION WIDTH (BEAKER) (test 17.4 % 10.3-14.2 tmqq=561) PLATELET COUNT (BEAKER) (test pqob=088) 53 K/CU MM 150-430 MEAN PLATELET VOLUME (BEAKER) (test xjpm=811) 9.1 fL 6.5-10.5 NUCLEATED RED BLOOD CELLS (BEAKER) (test 0 /100 WBC 0-0 kvkm=390) NEUTROPHILS RELATIVE PERCENT (BEAKER) (test 75 % yqjs=578) LYMPHOCYTES RELATIVE PERCENT (BEAKER) (test 7 % exxs=103) MONOCYTES RELATIVE PERCENT (BEAKER) (test 10 % jvjf=550) EOSINOPHILS RELATIVE PERCENT (BEAKER) (test 8 % bogt=172) BASOPHILS RELATIVE PERCENT (BEAKER) (test 0 % aham=845) NEUTROPHILS ABSOLUTE COUNT (BEAKER) (test 4.47 K/ L 1.80-8.00 xvnt=935) LYMPHOCYTES ABSOLUTE COUNT (BEAKER) (test 0.39 K/ L 1.48-4.50 dwoj=542) MONOCYTES ABSOLUTE COUNT (BEAKER) (test icrh=504) 0.59 K/ L 0.00-1.30 EOSINOPHILS ABSOLUTE COUNT (BEAKER) (test 0.49 K/ L 0.00-0.50 ymjz=369) BASOPHILS ABSOLUTE COUNT (BEAKER) (test ymsr=269) 0.01 K/ L 0.00-0.20 0.00POCT-GLUCOSE [id number] 21:17:00 Test Item Value Reference Range Comments POC-GLUCOSE METER (BEAKER) 176 mg/dL 70-110 TESTED AT [address] (test nalv=0969) [place] [id number] POCT-GLUCOSE [id number] 17:54:00 Test Item Value Reference Range Comments POC-GLUCOSE METER (BEAKER) 214 mg/dL 70-110 TESTED AT [address] (test wlxy=7861) [place] [id number] POCT-GLUCOSE [id number] 17:14:00 Test Item Value Reference Range Comments POC-GLUCOSE METER (BEAKER) 205 mg/dL 70-110 TESTED AT [address] (test tdgr=6214) [place] [id number] PROTHROMBIN [id number] 16:18:00 Test Item Value Reference Range Comments PROTIME (BEAKER) (test ztcy=251) 17.4 seconds 11.7-14.7 INR (BEAKER) (test upli=261) 1.4 <=5.9 RECOMMENDED COUMADIN/WARFARIN INR THERAPY RANGESSTANDARD DOSE: 2.0 - 3.0 Includes: PROPHYLAXIS forvenous thrombosis, systemic embolization; TREATMENT for venous thrombosis and/or pulmonary embolus.HIGH RISK: Target INR is 2.5-3.5 for patients with mechanical heart valves.URINALYSIS W/ [id number] 15 :46:00 Test Item Value Reference Range Comments COLOR (BEAKER) (test xccf=041) Yellow CLARITY (BEAKER) (test gnla=984) Hazy SPECIFIC GRAVITY UA (BEAKER) (test zajd=247) 1.024 1.001-1.035 PH UA (BEAKER) (test ayuf=301) 5.0 5.0-8.0 PROTEIN UA (BEAKER) (test vnop=587) 10 mg/dL Negative GLUCOSE UA (BEAKER) (test lywy=543) Negative Negative KETONES UA (BEAKER) (test wvud=578) Negative Negative BILIRUBIN UA (BEAKER) (test jcup=094) Negative Negative BLOOD UA (BEAKER) (test jswf=830) Small Negative NITRITE UA (BEAKER) (test snhl=138) Negative Negative LEUKOCYTE ESTERASE UA (BEAKER) (test zjcm=563) Moderate Negative UROBILINOGEN UA (BEAKER) (test zfqz=755) 0.2 mg/dL 0.2-1.0 RBC UA (BEAKER) (test nwlh=564) 5 /HPF WBC UA (BEAKER) (test wuju=608) 22 /HPF BACTERIA (BEAKER) (test tntl=797) Rare SQUAMOUS EPITHELIAL (BEAKER) (test hblg=141) 1 /HPF SOURCE(BEAKER) (test dgqa=1417) HEPATIC FUNCTION [id number] 12:12:00 Test Item Value Reference Range Comments TOTAL PROTEIN (BEAKER) (test rsyo=112) 5.8 gm/dL 6.0-8.3 ALBUMIN (BEAKER) (test kifa=6840) 2.7 g/dL 3.5-5.0 BILIRUBIN TOTAL (BEAKER) (test gudy=953) 2.4 mg/dL 0.2-1.2 BILIRUBIN DIRECT (BEAKER) (test utvs=924) 0.6 mg/dL 0.1-0.5 ALKALINE PHOSPHATASE (BEAKER) (test hdqj=019) 97 U/L 40-150 AST (SGOT) (BEAKER) (test lqqy=775) 30 U/L 5-34 ALT (SGPT) (BEAKER) (test raiy=106) 13 U/L 6-55 Specimen slightly ictericPOCT-GLUCOSE [id number] 08:27:00 Test Item Value Reference Range Comments POC-GLUCOSE METER (BEAKER) 171 mg/dL 70-110 [facility] [address] [facility] (test nxbf=5385) [facility] [address] [id number] 03:37:00 Test Item Value Reference Range Comments PHOSPHORUS (BEAKER) (test bnsv=841) 3.0 mg/dL 2.3-4.7 [id number] 03:37:00 Test Item Value Reference Range Comments MAGNESIUM (BEAKER) (test ynep=617) 1.8 mg/dL 1.6-2.6 BASIC METABOLIC [id number] 03:37:00 Test Item Value Reference Range Comments SODIUM (BEAKER) (test 135 meq/L 136-145 dind=817) POTASSIUM (BEAKER) (test 4.6 meq/L 3.5-5.1 ylkg=504) CHLORIDE (BEAKER) (test 104 meq/L 98-107 qriq=818) CO2 (BEAKER) (test 23 meq/L 22-29 iwgl=339) BLOOD UREA NITROGEN 22 mg/dL 7-21 (BEAKER) (test pkkh=130) CREATININE (BEAKER) (test 1.15 mg/dL 0.57-1.25 biqf=788) GLUCOSE RANDOM (BEAKER) 162 mg/dL 70-105 (test klxx=994) CALCIUM (BEAKER) (test 8.3 mg/dL 8.4-10.2 etlv=195) EGFR (BEAKER) (test 63 mL/min/1.73 sq m ESTIMATED GFR IS NOT vsli=6000) ACCURATE CREATININE CLEARANCE IN PREDICTING GLOMERULAR FILTRATION RATE. ESTIMATED GFR IS NOT APPLICABLE FOR DIALYSIS PATIENTS. Specimen slightly ictericCBC W/PLT COUNT & AUTO [id number] 03:32 :00 Test Item Value Reference Range Comments WHITE BLOOD CELL COUNT (BEAKER) (test xwld=569) 7.7 K/ L 4.0-10.0 RED BLOOD CELL COUNT (BEAKER) (test hezy=882) 2.96 M/ L 4.20-5.80 HEMOGLOBIN (BEAKER) (test wima=890) 9.1 GM/DL 13.0-16.8 HEMATOCRIT (BEAKER) (test ugcn=915) 26.7 % 40.0-50.0 MEAN CORPUSCULAR VOLUME (BEAKER) (test syzz=517) 90.2 fL 82.0-98.0 MEAN CORPUSCULAR HEMOGLOBIN (BEAKER) (test 30.8 pg 27.0-33.0 cure=061) MEAN CORPUSCULAR HEMOGLOBIN CONC (BEAKER) (test 34.2 GM/DL 32.0-36.0 xena=306) RED CELL DISTRIBUTION WIDTH (BEAKER) (test 17.2 % 10.3-14.2 qjjg=662) PLATELET COUNT (BEAKER) (test qbyr=880) 50 K/CU MM 150-430 MEAN PLATELET VOLUME (BEAKER) (test fdfc=481) 8.2 fL 6.5-10.5 NUCLEATED RED BLOOD CELLS (BEAKER) (test 0 /100 WBC 0-0 ecpg=708) NEUTROPHILS RELATIVE PERCENT (BEAKER) (test 80 % wemm=181) LYMPHOCYTES RELATIVE PERCENT (BEAKER) (test 5 % ljsg=053) MONOCYTES RELATIVE PERCENT (BEAKER) (test 10 % xrzp=982) EOSINOPHILS RELATIVE PERCENT (BEAKER) (test 5 % amwq=535) BASOPHILS RELATIVE PERCENT (BEAKER) (test 0 % hpos=980) NEUTROPHILS ABSOLUTE COUNT (BEAKER) (test 6.17 K/ L 1.80-8.00 cahl=728) LYMPHOCYTES ABSOLUTE COUNT (BEAKER) (test 0.38 K/ L 1.48-4.50 hglb=961) MONOCYTES ABSOLUTE COUNT (BEAKER) (test lcoi=167) 0.75 K/ L 0.00-1.30 EOSINOPHILS ABSOLUTE COUNT (BEAKER) (test 0.36 K/ L 0.00-0.50 vmww=755) BASOPHILS ABSOLUTE COUNT (BEAKER) (test bjpx=669) 0.02 K/ L 0.00-0.20 0.00CALCIUM, [id number] 03:29:00 Test Item Value Reference Range Comments CALCIUM IONIZED (BEAKER) (test rcqk=267) 1.06 mmol/L 1.12-1.27 PH, BLOOD (BEAKER) (test nnqs=0588) 7.41 POCT-GLUCOSE [id number] 21:59:00 Test Item Value Reference Range Comments POC-GLUCOSE METER (BEAKER) 181 mg/dL 70-110 TESTED AT [facility] [address] [facility] (test sybf=2963) [facility] [address] BLOOD GAS, [id number] 10:35:00 Test Item Value Reference Range Comments PH ARTERIAL (BEAKER) (test nyvu=929) 7.41 7.35-7.45 PCO2 ARTERIAL (BEAKER) (test zhql=420) 40 mmHg 35-45 PO2 ARTERIAL (BEAKER) (test lwdf=447) 231 mmHg 80-90 O2 SATURATION ARTERIAL (BEAKER) (test gjfi=201) 99.5 % 96.0-97.0 HCO3 ARTERIAL (BEAKER) (test zuxo=632) 25 mmol/L 21-29 BASE EXCESS ARTERIAL (BEAKER) (test jmgd=093) 0.1 mmol/L -2.0-3.0 PATIENT TEMPERATURE (BEAKER) (test ccko=3682) 37.0 C FIO2 (BEAKER) (test ejpb=3314) 21.0 % SODIUM NA-STAT [id number] 10:35:00 Test Item Value Reference Range Comments SODIUM (BEAKER) (test tyhs=934) 132 meq/L 135-148 HGB/HCT (H&H) - STAT [id number] 10:35:00 Test Item Value Reference Range Comments HEMOGLOBIN (BEAKER) (test bsxq=637) 7.6 g/dL 13.0-16.8 HEMATOCRIT (BEAKER) (test fjnh=888) 22.0 % 40.0-50.0 GLUCOSE-STAT [id number] 10:34:00 Test Item Value Reference Range Comments GLUCOSE RANDOM (BEAKER) (test zrvf=679) 99 mg/dL 70-110 POTASSIUM-STAT [id number] 10:34:00 Test Item Value Reference Range Comments POTASSIUM (BEAKER) (test awdf=078) 3.5 meq/L 3.6-5.5 [id number] 10:31:00 Test Item Value Reference Range Comments ACTIVATED CLOTTING TIME 270 sec TESTED AT [facility] [address] (BEAKER) (test oumn=557) [facility] [address] [id number] 10:05:00 Test Item Value Reference Range Comments ACTIVATED CLOTTING TIME 286 sec TESTED AT [place] [address] [address] (BEAKER) (test jmsi=961) [facility] [address] POCT-GLUCOSE [id number] 09:51:00 Test Item Value Reference Range Comments POC-GLUCOSE METER (BEAKER) 100 mg/dL 70-110 TESTED AT [address] (test wnhy=1037) [facility] [address] BLOOD GAS, [id number] 08:39:00 Test Item Value Reference Range Comments PH ARTERIAL (BEAKER) (test jlxq=085) 7.45 7.35-7.45 PCO2 ARTERIAL (BEAKER) (test aodc=537) 39 mmHg 35-45 PO2 ARTERIAL (BEAKER) (test blvb=911) 424 mmHg 80-90 O2 SATURATION ARTERIAL (BEAKER) (test bloh=447) 99.8 % 96.0-97.0 HCO3 ARTERIAL (BEAKER) (test rfry=281) 26 mmol/L 21-29 BASE EXCESS ARTERIAL (BEAKER) (test kjpv=339) 2.1 mmol/L -2.0-3.0 PATIENT TEMPERATURE (BEAKER) (test xwav=5928) 37.0 C FIO2 (BEAKER) (test rtwe=1053) 100.0 % SODIUM NA-STAT [id number] 08:39:00 Test Item Value Reference Range Comments SODIUM (BEAKER) (test orps=912) 132 meq/L 135-148 GLUCOSE-STAT [id number] 08:39:00 Test Item Value Reference Range Comments GLUCOSE RANDOM (BEAKER) (test ktnv=938) 131 mg/dL 70-110 HGB/HCT (H&H) - STAT [id number] 08:39:00 Test Item Value Reference Range Comments HEMOGLOBIN (BEAKER) (test nefc=007) 8.5 g/dL 13.0-16.8 HEMATOCRIT (BEAKER) (test mbaq=579) 25.0 % 40.0-50.0 POTASSIUM-STAT [id number] 08:38:00 Test Item Value Reference Range Comments POTASSIUM (BEAKER) (test ojxj=979) 3.6 meq/L 3.6-5.5 POCT-GLUCOSE [id number] 07:47:00 Test Item Value Reference Range Comments POC-GLUCOSE METER (BEAKER) 70 mg/dL 70-110 TESTED AT [address] (test vqvf=6364) [place] [address] [id number] 04:07:00 Test Item Value Reference Range Comments MAGNESIUM (BEAKER) (test yczb=421) 2.1 mg/dL 1.6-2.6 [id number] 04:07:00 Test Item Value Reference Range Comments PHOSPHORUS (BEAKER) (test gehn=648) 2.6 mg/dL 2.3-4.7 CALCIUM, [id number] 04:01:00 Test Item Value Reference Range Comments CALCIUM IONIZED (BEAKER) (test wokm=117) 1.11 mmol/L 1.12-1.27 PH, BLOOD (BEAKER) (test sljh=9224) 7.40 BASIC METABOLIC [id number] 04:00:00 Test Item Value Reference Range Comments SODIUM (BEAKER) (test 133 meq/L 136-145 gnwu=521) POTASSIUM (BEAKER) (test 4.0 meq/L 3.5-5.1 ymhz=678) CHLORIDE (BEAKER) (test 101 meq/L 98-107 ewpr=045) CO2 (BEAKER) (test 26 meq/L 22-29 xwky=795) BLOOD UREA NITROGEN 21 mg/dL 7-21 (BEAKER) (test uhad=672) CREATININE (BEAKER) (test 1.11 mg/dL 0.57-1.25 pzyh=604) GLUCOSE RANDOM (BEAKER) 141 mg/dL 70-105 (test kxae=602) CALCIUM (BEAKER) (test 8.3 mg/dL 8.4-10.2 ytvq=422) EGFR (BEAKER) (test 66 mL/min/1.73 sq m ESTIMATED GFR IS NOT bgdw=1271) ACCURATE CREATININE CLEARANCE IN PREDICTING GLOMERULAR FILTRATION RATE. ESTIMATED GFR IS NOT APPLICABLE FOR DIALYSIS PATIENTS. CBC W/PLT COUNT & AUTO [id number] 03:40:00 Test Item Value Reference Range Comments WHITE BLOOD CELL COUNT (BEAKER) (test dfwl=060) 4.6 K/ L 4.0-10.0 RED BLOOD CELL COUNT (BEAKER) (test qwzn=237) 3.00 M/ L 4.20-5.80 HEMOGLOBIN (BEAKER) (test vhma=654) 9.0 GM/DL 13.0-16.8 HEMATOCRIT (BEAKER) (test ofcx=513) 26.5 % 40.0-50.0 MEAN CORPUSCULAR VOLUME (BEAKER) (test itcv=685) 88.4 fL 82.0-98.0 MEAN CORPUSCULAR HEMOGLOBIN (BEAKER) (test 29.9 pg 27.0-33.0 hiuo=633) MEAN CORPUSCULAR HEMOGLOBIN CONC (BEAKER) (test 33.8 GM/DL 32.0-36.0 kucl=867) RED CELL DISTRIBUTION WIDTH (BEAKER) (test 17.7 % 10.3-14.2 jxhr=579) PLATELET COUNT (BEAKER) (test dcuw=161) 50 K/CU MM 150-430 MEAN PLATELET VOLUME (BEAKER) (test kojr=530) 8.5 fL 6.5-10.5 NUCLEATED RED BLOOD CELLS (BEAKER) (test 0 /100 WBC 0-0 ivif=139) NEUTROPHILS RELATIVE PERCENT (BEAKER) (test 68 % hkmm=460) LYMPHOCYTES RELATIVE PERCENT (BEAKER) (test 8 % umah=141) MONOCYTES RELATIVE PERCENT (BEAKER) (test 13 % jxue=115) EOSINOPHILS RELATIVE PERCENT (BEAKER) (test 10 % hscg=407) BASOPHILS RELATIVE PERCENT (BEAKER) (test 0 % cgxh=209) NEUTROPHILS ABSOLUTE COUNT (BEAKER) (test 3.10 K/ L 1.80-8.00 brdp=674) LYMPHOCYTES ABSOLUTE COUNT (BEAKER) (test 0.38 K/ L 1.48-4.50 xddk=048) MONOCYTES ABSOLUTE COUNT (BEAKER) (test qzuf=109) 0.60 K/ L 0.00-1.30 EOSINOPHILS ABSOLUTE COUNT (BEAKER) (test 0.47 K/ L 0.00-0.50 mywt=235) BASOPHILS ABSOLUTE COUNT (BEAKER) (test vavw=709) 0.00 K/ L 0.00-0.20 0.00POCT-GLUCOSE [id number] 22:30:00 Test Item Value Reference Range Comments POC-GLUCOSE METER (BEAKER) 235 mg/dL 70-110 TESTED AT [facility] [address] [facility] (test qjng=7601) [facility] [address] POCT-GLUCOSE [id number] 17:54:00 Test Item Value Reference Range Comments POC-GLUCOSE METER (BEAKER) 228 mg/dL 70-110 TESTED AT [address] (test zpig=2292) [facility] [address] POCT-GLUCOSE [id number] 12:48:00 Test Item Value Reference Range Comments POC-GLUCOSE METER (BEAKER) 125 mg/dL 70-110 TESTED AT [address] (test sycx=5723) [facility] [address] POCT-GLUCOSE [id number] 08:10:00 Test Item Value Reference Range Comments POC-GLUCOSE METER (BEAKER) 222 mg/dL 70-110 TESTED AT [address] (test ltar=2861) [facility] [address] POCT-GLUCOSE [id number] 05:24:00 Test Item Value Reference Range Comments POC-GLUCOSE METER (BEAKER) 130 mg/dL 70-110 TESTED AT [address] (test keco=2315) [facility] [address] CALCIUM, [id number] 04:47:00 Test Item Value Reference Range Comments CALCIUM IONIZED (BEAKER) (test tevv=038) 1.10 mmol/L 1.12-1.27 PH, BLOOD (BEAKER) (test vcrc=8713) 7.50 CBC W/PLT COUNT & AUTO [id number] 04:46:00 Test Item Value Reference Range Comments WHITE BLOOD CELL COUNT (BEAKER) (test qqit=961) 4.1 K/ L 4.0-10.0 RED BLOOD CELL COUNT (BEAKER) (test tlyo=146) 2.85 M/ L 4.20-5.80 HEMOGLOBIN (BEAKER) (test ltqy=400) 8.2 GM/DL 13.0-16.8 HEMATOCRIT (BEAKER) (test ptin=813) 25.6 % 40.0-50.0 MEAN CORPUSCULAR VOLUME (BEAKER) (test yblq=558) 89.8 fL 82.0-98.0 MEAN CORPUSCULAR HEMOGLOBIN (BEAKER) (test 28.7 pg 27.0-33.0 lqrb=562) MEAN CORPUSCULAR HEMOGLOBIN CONC (BEAKER) (test 32.0 GM/DL 32.0-36.0 bswa=880) RED CELL DISTRIBUTION WIDTH (BEAKER) (test 17.4 % 10.3-14.2 thnq=712) PLATELET COUNT (BEAKER) (test hthn=422) 55 K/CU MM 150-430 MEAN PLATELET VOLUME (BEAKER) (test ikqq=235) 8.4 fL 6.5-10.5 NUCLEATED RED BLOOD CELLS (BEAKER) (test 0 /100 WBC 0-0 show=311) NEUTROPHILS RELATIVE PERCENT (BEAKER) (test 68 % mpmv=720) LYMPHOCYTES RELATIVE PERCENT (BEAKER) (test 10 % woxf=028) MONOCYTES RELATIVE PERCENT (BEAKER) (test 12 % zjsz=319) EOSINOPHILS RELATIVE PERCENT (BEAKER) (test 10 % alll=808) BASOPHILS RELATIVE PERCENT (BEAKER) (test 0 % mqon=773) NEUTROPHILS ABSOLUTE COUNT (BEAKER) (test 2.80 K/ L 1.80-8.00 ecxr=091) LYMPHOCYTES ABSOLUTE COUNT (BEAKER) (test 0.39 K/ L 1.48-4.50 knyj=786) MONOCYTES ABSOLUTE COUNT (BEAKER) (test xksy=318) 0.51 K/ L 0.00-1.30 EOSINOPHILS ABSOLUTE COUNT (BEAKER) (test 0.40 K/ L 0.00-0.50 fqzy=075) BASOPHILS ABSOLUTE COUNT (BEAKER) (test xahf=058) 0.02 K/ L 0.00-0.20 [id number] 04:35:00 Test Item Value Reference Range Comments PHOSPHORUS (BEAKER) (test ojgs=321) 2.5 mg/dL 2.3-4.7 [id number] 04:35:00 Test Item Value Reference Range Comments MAGNESIUM (BEAKER) (test kkhm=239) 2.2 mg/dL 1.6-2.6 BASIC METABOLIC [id number] 04:35:00 Test Item Value Reference Range Comments SODIUM (BEAKER) (test 133 meq/L 136-145 qktz=744) POTASSIUM (BEAKER) (test 4.2 meq/L 3.5-5.1 fpxu=756) CHLORIDE (BEAKER) (test 101 meq/L 98-107 nvmt=942) CO2 (BEAKER) (test 24 meq/L 22-29 mvqf=720) BLOOD UREA NITROGEN 29 mg/dL 7-21 (BEAKER) (test rweo=457) CREATININE (BEAKER) (test 1.19 mg/dL 0.57-1.25 kydi=936) GLUCOSE RANDOM (BEAKER) 154 mg/dL 70-105 (test ltxc=294) CALCIUM (BEAKER) (test 8.4 mg/dL 8.4-10.2 jqaa=252) EGFR (BEAKER) (test 61 mL/min/1.73 sq m ESTIMATED GFR IS NOT fdeo=3458) ACCURATE CREATININE CLEARANCE IN PREDICTING GLOMERULAR FILTRATION RATE. ESTIMATED GFR IS NOT APPLICABLE FOR DIALYSIS PATIENTS. HEPATIC FUNCTION [id number] 04:35:00 Test Item Value Reference Range Comments TOTAL PROTEIN (BEAKER) (test afqm=940) 6.2 gm/dL 6.0-8.3 ALBUMIN (BEAKER) (test aann=8283) 2.9 g/dL 3.5-5.0 BILIRUBIN TOTAL (BEAKER) (test wfdf=505) 1.0 mg/dL 0.2-1.2 BILIRUBIN DIRECT (BEAKER) (test vddp=701) 0.6 mg/dL 0.1-0.5 ALKALINE PHOSPHATASE (BEAKER) (test nzxf=879) 114 U/L 40-150 AST (SGOT) (BEAKER) (test rwul=643) 23 U/L 5-34 ALT (SGPT) (BEAKER) (test smyl=044) 14 U/L 6-55 POCT-GLUCOSE [id number] 21:28:00 Test Item Value Reference Range Comments POC-GLUCOSE METER (BEAKER) 242 mg/dL 70-110 TESTED AT [address] (test zeif=1159) [place] [address] [id number] 18:04:00 Test Item Value Reference Range Comments PREALBUMIN (BEAKER) (test hcam=111) 9 mg/dL 14-45 Listed for liver transplant - Nutrition surveillance (hepatology)POCT-GLUCOSE [id number] 17:13:00 Test Item Value Reference Range Comments POC-GLUCOSE METER (BEAKER) 161 mg/dL 70-110 TESTED AT [address] (test rxzu=9734) [place] [id number] POCT-GLUCOSE [id number] 11:14:00 Test Item Value Reference Range Comments POC-GLUCOSE METER (BEAKER) 298 mg/dL 70-110 TESTED AT [address] (test osnz=1546) [place] [address] POCT-GLUCOSE [id number] 07:38:00 Test Item Value Reference Range Comments POC-GLUCOSE METER (BEAKER) 113 mg/dL 70-110 TESTED AT [facility] [address] [facility] (test dikx=8030) [facility] [address] [id number] 05:19:00 Test Item Value Reference Range Comments PHOSPHORUS (BEAKER) (test cpqz=983) 2.4 mg/dL 2.3-4.7 [id number] 05:19:00 Test Item Value Reference Range Comments MAGNESIUM (BEAKER) (test zkgs=307) 2.4 mg/dL 1.6-2.6 BASIC METABOLIC [id number] 05:19:00 Test Item Value Reference Range Comments SODIUM (BEAKER) (test 135 meq/L 136-145 pzcc=036) POTASSIUM (BEAKER) (test 4.1 meq/L 3.5-5.1 njta=059) CHLORIDE (BEAKER) (test 100 meq/L 98-107 vahf=175) CO2 (BEAKER) (test 29 meq/L 22-29 agis=251) BLOOD UREA NITROGEN 40 mg/dL 7-21 (BEAKER) (test xjtk=852) CREATININE (BEAKER) (test 1.31 mg/dL 0.57-1.25 ceun=961) GLUCOSE RANDOM (BEAKER) 84 mg/dL 70-105 (test jlpv=667) CALCIUM (BEAKER) (test 8.8 mg/dL 8.4-10.2 htjg=464) EGFR (BEAKER) (test 55 mL/min/1.73 sq m ESTIMATED GFR IS NOT fttz=2151) ACCURATE CREATININE CLEARANCE IN PREDICTING GLOMERULAR FILTRATION RATE. ESTIMATED GFR IS NOT APPLICABLE FOR DIALYSIS PATIENTS. HEPATIC FUNCTION [id number] 05:19:00 Test Item Value Reference Range Comments TOTAL PROTEIN (BEAKER) (test bsha=213) 6.8 gm/dL 6.0-8.3 ALBUMIN (BEAKER) (test ddhy=5863) 3.1 g/dL 3.5-5.0 BILIRUBIN TOTAL (BEAKER) (test dahg=533) 1.2 mg/dL 0.2-1.2 BILIRUBIN DIRECT (BEAKER) (test ilaz=909) 0.7 mg/dL 0.1-0.5 ALKALINE PHOSPHATASE (BEAKER) (test ddcv=701) 118 U/L 40-150 AST (SGOT) (BEAKER) (test tflj=762) 30 U/L 5-34 ALT (SGPT) (BEAKER) (test yavz=516) 17 U/L 6-55 B-TYPE NATRIURETIC FACTOR (BNP)[id number] 05:18:00 Test Item Value Reference Range Comments B-TYPE NATRIURETIC PEPTIDE (BEAKER) (test 138 pg/mL 0-100 esdn=103) CBC W/PLT COUNT & AUTO [id number] 05:11:00 Test Item Value Reference Range Comments WHITE BLOOD CELL COUNT (BEAKER) (test kqtl=623) 6.5 K/ L 4.0-10.0 RED BLOOD CELL COUNT (BEAKER) (test ixua=265) 2.93 M/ L 4.20-5.80 HEMOGLOBIN (BEAKER) (test uglq=380) 8.6 GM/DL 13.0-16.8 HEMATOCRIT (BEAKER) (test cywp=679) 25.9 % 40.0-50.0 MEAN CORPUSCULAR VOLUME (BEAKER) (test ozln=470) 88.5 fL 82.0-98.0 MEAN CORPUSCULAR HEMOGLOBIN (BEAKER) (test 29.2 pg 27.0-33.0 fmln=427) MEAN CORPUSCULAR HEMOGLOBIN CONC (BEAKER) (test 33.0 GM/DL 32.0-36.0 stez=248) RED CELL DISTRIBUTION WIDTH (BEAKER) (test 18.2 % 10.3-14.2 timr=402) PLATELET COUNT (BEAKER) (test tfdn=029) 72 K/CU MM 150-430 MEAN PLATELET VOLUME (BEAKER) (test htph=013) 7.6 fL 6.5-10.5 NUCLEATED RED BLOOD CELLS (BEAKER) (test 0 /100 WBC 0-0 wzwo=638) NEUTROPHILS RELATIVE PERCENT (BEAKER) (test 72 % awui=001) LYMPHOCYTES RELATIVE PERCENT (BEAKER) (test 8 % vrwe=187) MONOCYTES RELATIVE PERCENT (BEAKER) (test 11 % dxjv=125) EOSINOPHILS RELATIVE PERCENT (BEAKER) (test 9 % rbiu=611) BASOPHILS RELATIVE PERCENT (BEAKER) (test 1 % rptl=034) NEUTROPHILS ABSOLUTE COUNT (BEAKER) (test 4.69 K/ L 1.80-8.00 uxol=393) LYMPHOCYTES ABSOLUTE COUNT (BEAKER) (test 0.49 K/ L 1.48-4.50 xpzs=782) MONOCYTES ABSOLUTE COUNT (BEAKER) (test cygl=575) 0.71 K/ L 0.00-1.30 EOSINOPHILS ABSOLUTE COUNT (BEAKER) (test 0.56 K/ L 0.00-0.50 gocc=823) BASOPHILS ABSOLUTE COUNT (BEAKER) (test vcnc=696) 0.05 K/ L 0.00-0.20 0.00CALCIUM, [id number] 04:57:00 Test Item Value Reference Range Comments CALCIUM IONIZED (BEAKER) (test sjsx=358) 1.10 mmol/L 1.12-1.27 PH, BLOOD (BEAKER) (test hmyc=5166) 7.40 POCT-GLUCOSE [id number] 21:19:00 Test Item Value Reference Range Comments POC-GLUCOSE METER (BEAKER) 265 mg/dL 70-110 TESTED AT [address] (test fwtf=2936) [place] [address] POCT-GLUCOSE [id number] 17:33:00 Test Item Value Reference Range Comments POC-GLUCOSE METER (BEAKER) 271 mg/dL 70-110 TESTED AT [address] (test mddu=0990) [place] [address] POCT-GLUCOSE [id number] 08:18:00 Test Item Value Reference Range Comments POC-GLUCOSE METER (BEAKER) 130 mg/dL 70-110 TESTED AT [address] (test hyuk=2988) [place] [address] CBC W/PLT COUNT & AUTO [id number] 07:10:00 Test Item Value Reference Range Comments WHITE BLOOD CELL COUNT (BEAKER) (test rgcp=260) 10.6 K/ L 4.0-10.0 RED BLOOD CELL COUNT (BEAKER) (test xaml=777) 3.09 M/ L 4.20-5.80 HEMOGLOBIN (BEAKER) (test dhmf=883) 8.9 GM/DL 13.0-16.8 HEMATOCRIT (BEAKER) (test plgl=167) 27.8 % 40.0-50.0 MEAN CORPUSCULAR VOLUME (BEAKER) (test poas=641) 89.9 fL 82.0-98.0 MEAN CORPUSCULAR HEMOGLOBIN (BEAKER) (test 28.9 pg 27.0-33.0 drrm=054) MEAN CORPUSCULAR HEMOGLOBIN CONC (BEAKER) (test 32.1 GM/DL 32.0-36.0 peqo=888) RED CELL DISTRIBUTION WIDTH (BEAKER) (test 17.6 % 10.3-14.2 cmnn=496) PLATELET COUNT (BEAKER) (test dmnz=133) 79 K/CU MM 150-430 MEAN PLATELET VOLUME (BEAKER) (test evub=524) 8.4 fL 6.5-10.5 NUCLEATED RED BLOOD CELLS (BEAKER) (test 0 /100 WBC 0-0 pdlb=930) NEUTROPHILS RELATIVE PERCENT (BEAKER) (test 87 % qfel=435) LYMPHOCYTES RELATIVE PERCENT (BEAKER) (test 4 % lkor=693) MONOCYTES RELATIVE PERCENT (BEAKER) (test 7 % lgpu=342) EOSINOPHILS RELATIVE PERCENT (BEAKER) (test 2 % sckg=284) BASOPHILS RELATIVE PERCENT (BEAKER) (test 0 % gbqp=652) NEUTROPHILS ABSOLUTE COUNT (BEAKER) (test 9.20 K/ L 1.80-8.00 dhtu=018) LYMPHOCYTES ABSOLUTE COUNT (BEAKER) (test 0.45 K/ L 1.48-4.50 pkoy=540) MONOCYTES ABSOLUTE COUNT (BEAKER) (test xbae=624) 0.70 K/ L 0.00-1.30 EOSINOPHILS ABSOLUTE COUNT (BEAKER) (test 0.25 K/ L 0.00-0.50 jjzh=116) BASOPHILS ABSOLUTE COUNT (BEAKER) (test toih=570) 0.02 K/ L 0.00-0.20 0.00HEPATIC FUNCTION [id number] 06:52:00 Test Item Value Reference Range Comments TOTAL PROTEIN (BEAKER) (test ddvu=961) 6.6 gm/dL 6.0-8.3 ALBUMIN (BEAKER) (test jkjs=3234) 3.0 g/dL 3.5-5.0 BILIRUBIN TOTAL (BEAKER) (test zdxh=263) 1.7 mg/dL 0.2-1.2 BILIRUBIN DIRECT (BEAKER) (test rdzd=949) 0.8 mg/dL 0.1-0.5 ALKALINE PHOSPHATASE (BEAKER) (test vxzl=225) 116 U/L 40-150 AST (SGOT) (BEAKER) (test ifry=313) 29 U/L 5-34 ALT (SGPT) (BEAKER) (test mfci=791) 18 U/L 6-55 BASIC METABOLIC [id number] 06:52:00 Test Item Value Reference Range Comments SODIUM (BEAKER) (test 136 meq/L 136-145 fnuo=675) POTASSIUM (BEAKER) (test 3.7 meq/L 3.5-5.1 jump=370) CHLORIDE (BEAKER) (test 98 meq/L 98-107 yrka=842) CO2 (BEAKER) (test 26 meq/L 22-29 thba=980) BLOOD UREA NITROGEN 52 mg/dL 7-21 (BEAKER) (test uyff=337) CREATININE (BEAKER) (test 1.52 mg/dL 0.57-1.25 oikl=560) GLUCOSE RANDOM (BEAKER) 131 mg/dL 70-105 (test wwkc=533) CALCIUM (BEAKER) (test 8.8 mg/dL 8.4-10.2 olak=934) EGFR (BEAKER) (test 46 mL/min/1.73 sq m ESTIMATED GFR IS NOT ysrr=5196) ACCURATE CREATININE CLEARANCE IN PREDICTING GLOMERULAR FILTRATION RATE. ESTIMATED GFR IS NOT APPLICABLE FOR DIALYSIS PATIENTS. URINALYSIS W/ [id number] 05:23:00 Test Item Value Reference Range Comments COLOR (BEAKER) (test tsip=510) Yellow CLARITY (BEAKER) (test gwkm=034) Clear SPECIFIC GRAVITY UA (BEAKER) (test 1.011 1.001-1.035 nqbh=445) PH UA (BEAKER) (test bvbg=981) 5.0 5.0-8.0 PROTEIN UA (BEAKER) (test vxzt=952) Negative Negative GLUCOSE UA (BEAKER) (test rjqf=536) Negative Negative KETONES UA (BEAKER) (test zvav=556) Negative Negative BILIRUBIN UA (BEAKER) (test fyao=522) Negative Negative BLOOD UA (BEAKER) (test iwba=780) Negative Negative NITRITE UA (BEAKER) (test jjwu=121) Negative Negative LEUKOCYTE ESTERASE UA (BEAKER) (test Negative Negative swbm=135) UROBILINOGEN UA (BEAKER) (test kffa=084) 0.2 mg/dL 0.2-1.0 RBC UA (BEAKER) (test uzcl=441) 1 /HPF WBC UA (BEAKER) (test vjke=982) < /HPF BACTERIA (BEAKER) (test ebsv=455) Rare HYALINE CASTS (BEAKER) (test whbg=558) 43 /LPF AMORPHOUS CRYSTALS (BEAKER) (test Rare ofev=6937) SOURCE(BEAKER) (test vqoo=2589) Urine, Clean Catch [id number] 20:58:00 Test Item Value Reference Range Comments PROTIME (BEAKER) (test xoqy=841) 16.0 seconds 11.7-14.7 INR (BEAKER) (test djbk=245) 1.3 <=5.9 PARTIAL THROMBOPLASTIN TIME (BEAKER) (test 38.8 seconds 22.5-36.0 dytf=860) RECOMMENDED COUMADIN/WARFARIN INR THERAPY RANGESSTANDARD DOSE: 2.0 - 3.0 Includes: PROPHYLAXIS forvenous thrombosis, systemic embolization; TREATMENT for venous thrombosis and/or pulmonary embolus.HIGH RISK: Target INR is 2.5-3.5 for patients with mechanical heart valves.COMPREHENSIVE METABOLIC [id number] 20:53:00 Test Item Value Reference Range Comments TOTAL PROTEIN (BEAKER) 8.3 gm/dL 6.0-8.3 (test qdro=439) ALBUMIN (BEAKER) (test 3.8 g/dL 3.5-5.0 aqbp=1911) ALKALINE PHOSPHATASE 152 U/L 40-150 (BEAKER) (test qcyq=536) BILIRUBIN TOTAL (BEAKER) 1.7 mg/dL 0.2-1.2 (test sluq=811) SODIUM (BEAKER) (test 132 meq/L 136-145 ccdl=590) POTASSIUM (BEAKER) (test 3.8 meq/L 3.5-5.1 rnvu=023) CHLORIDE (BEAKER) (test 93 meq/L 98-107 fwnw=862) CO2 (BEAKER) (test 29 meq/L 22-29 julp=641) BLOOD UREA NITROGEN 49 mg/dL 7-21 (BEAKER) (test urgf=203) CREATININE (BEAKER) (test 1.94 mg/dL 0.57-1.25 rchb=090) GLUCOSE RANDOM (BEAKER) 256 mg/dL 70-105 (test vbtr=617) CALCIUM (BEAKER) (test 9.7 mg/dL 8.4-10.2 qyms=439) AST (SGOT) (BEAKER) (test 29 U/L 5-34 sjgb=616) ALT (SGPT) (BEAKER) (test 19 U/L 6-55 sinu=930) EGFR (BEAKER) (test 35 mL/min/1.73 sq m ESTIMATED GFR IS NOT avfl=3569) ACCURATE CREATININE CLEARANCE IN PREDICTING GLOMERULAR FILTRATION RATE. ESTIMATED GFR IS NOT APPLICABLE FOR DIALYSIS PATIENTS. CBC W/PLT COUNT & AUTO [id number] 20:48:00 Test Item Value Reference Range Comments WHITE BLOOD CELL COUNT (BEAKER) (test cqen=944) 10.7 K/ L 4.0-10.0 RED BLOOD CELL COUNT (BEAKER) (test eenk=032) 3.72 M/ L 4.20-5.80 HEMOGLOBIN (BEAKER) (test nxhs=961) 10.6 GM/DL 13.0-16.8 HEMATOCRIT (BEAKER) (test jvfb=967) 33.2 % 40.0-50.0 MEAN CORPUSCULAR VOLUME (BEAKER) (test epjp=765) 89.2 fL 82.0-98.0 MEAN CORPUSCULAR HEMOGLOBIN (BEAKER) (test 28.5 pg 27.0-33.0 fimk=863) MEAN CORPUSCULAR HEMOGLOBIN CONC (BEAKER) (test 32.0 GM/DL 32.0-36.0 srxm=599) RED CELL DISTRIBUTION WIDTH (BEAKER) (test 17.9 % 10.3-14.2 xnis=426) PLATELET COUNT (BEAKER) (test smpl=553) 92 K/CU MM 150-430 MEAN PLATELET VOLUME (BEAKER) (test lpmt=441) 8.4 fL 6.5-10.5 NUCLEATED RED BLOOD CELLS (BEAKER) (test 0 /100 WBC 0-0 afqg=147) NEUTROPHILS RELATIVE PERCENT (BEAKER) (test 91 % ndre=114) LYMPHOCYTES RELATIVE PERCENT (BEAKER) (test 2 % tuif=891) MONOCYTES RELATIVE PERCENT (BEAKER) (test 5 % oryb=590) EOSINOPHILS RELATIVE PERCENT (BEAKER) (test 1 % vtum=288) BASOPHILS RELATIVE PERCENT (BEAKER) (test 1 % xjan=264) NEUTROPHILS ABSOLUTE COUNT (BEAKER) (test 9.77 K/ L 1.80-8.00 triq=254) LYMPHOCYTES ABSOLUTE COUNT (BEAKER) (test 0.22 K/ L 1.48-4.50 hukq=155) MONOCYTES ABSOLUTE COUNT (BEAKER) (test xkfl=243) 0.59 K/ L 0.00-1.30 EOSINOPHILS ABSOLUTE COUNT (BEAKER) (test 0.06 K/ L 0.00-0.50 dprc=240) BASOPHILS ABSOLUTE COUNT (BEAKER) (test jowx=903) 0.09 K/ L 0.00-0.20 0.00POCT-GLUCOSE [id number] 12:02:00 Test Item Value Reference Range Comments POC-GLUCOSE METER (BEAKER) 260 mg/dL 70-110 TESTED AT [address] (test bhgj=7969) [facility] [id number] POCT-GLUCOSE [id number] 08:27:00 Test Item Value Reference Range Comments POC-GLUCOSE METER (BEAKER) 122 mg/dL 70-110 TESTED AT [address] (test dzpv=1443) [facility] [id number] CBC W/PLT COUNT & AUTO [id number] 07:02:00 Test Item Value Reference Range Comments WHITE BLOOD CELL COUNT (BEAKER) (test ixlz=092) 4.9 K/ L 4.0-10.0 RED BLOOD CELL COUNT (BEAKER) (test eudz=038) 2.93 M/ L 4.20-5.80 HEMOGLOBIN (BEAKER) (test gwtl=803) 8.4 GM/DL 13.0-16.8 HEMATOCRIT (BEAKER) (test dghj=828) 26.0 % 40.0-50.0 MEAN CORPUSCULAR VOLUME (BEAKER) (test wbtb=141) 88.7 fL 82.0-98.0 MEAN CORPUSCULAR HEMOGLOBIN (BEAKER) (test 28.7 pg 27.0-33.0 medp=595) MEAN CORPUSCULAR HEMOGLOBIN CONC (BEAKER) (test 32.4 GM/DL 32.0-36.0 lmxx=028) RED CELL DISTRIBUTION WIDTH (BEAKER) (test 17.4 % 10.3-14.2 xots=904) PLATELET COUNT (BEAKER) (test qcnk=500) 54 K/CU MM 150-430 MEAN PLATELET VOLUME (BEAKER) (test fphx=577) 9.5 fL 6.5-10.5 NUCLEATED RED BLOOD CELLS (BEAKER) (test 0 /100 WBC 0-0 jkxb=100) NEUTROPHILS RELATIVE PERCENT (BEAKER) (test 74 % eecv=426) LYMPHOCYTES RELATIVE PERCENT (BEAKER) (test 8 % cjmx=216) MONOCYTES RELATIVE PERCENT (BEAKER) (test 11 % udfn=256) EOSINOPHILS RELATIVE PERCENT (BEAKER) (test 6 % vzse=504) BASOPHILS RELATIVE PERCENT (BEAKER) (test 1 % irre=320) NEUTROPHILS ABSOLUTE COUNT (BEAKER) (test 3.63 K/ L 1.80-8.00 ttsz=691) LYMPHOCYTES ABSOLUTE COUNT (BEAKER) (test 0.39 K/ L 1.48-4.50 joth=534) MONOCYTES ABSOLUTE COUNT (BEAKER) (test xxmn=787) 0.52 K/ L 0.00-1.30 EOSINOPHILS ABSOLUTE COUNT (BEAKER) (test 0.31 K/ L 0.00-0.50 bjyr=165) BASOPHILS ABSOLUTE COUNT (BEAKER) (test yyov=857) 0.03 K/ L 0.00-0.20 [id number] 06:01:00 Test Item Value Reference Range Comments PHOSPHORUS (BEAKER) (test dirs=094) 2.7 mg/dL 2.3-4.7 [id number] 06:01:00 Test Item Value Reference Range Comments MAGNESIUM (BEAKER) (test nhub=610) 2.0 mg/dL 1.6-2.6 BASIC METABOLIC [id number] 06:01:00 Test Item Value Reference Range Comments SODIUM (BEAKER) (test 133 meq/L 136-145 hxyr=625) POTASSIUM (BEAKER) (test 4.1 meq/L 3.5-5.1 ixrz=049) CHLORIDE (BEAKER) (test 102 meq/L 98-107 xgty=971) CO2 (BEAKER) (test 22 meq/L 22-29 edgz=300) BLOOD UREA NITROGEN 28 mg/dL 7-21 (BEAKER) (test plca=437) CREATININE (BEAKER) (test 1.17 mg/dL 0.57-1.25 pfhb=693) GLUCOSE RANDOM (BEAKER) 101 mg/dL 70-105 (test cpyt=266) CALCIUM (BEAKER) (test 8.7 mg/dL 8.4-10.2 ymfb=485) EGFR (BEAKER) (test 62 mL/min/1.73 sq m ESTIMATED GFR IS NOT cmtn=1867) ACCURATE CREATININE CLEARANCE IN PREDICTING GLOMERULAR FILTRATION RATE. ESTIMATED GFR IS NOT APPLICABLE FOR DIALYSIS PATIENTS. B-TYPE NATRIURETIC FACTOR (BNP)2016-08-29 06:00:00 Test Item Value Reference Range Comments B-TYPE NATRIURETIC PEPTIDE (BEAKER) (test 253 pg/mL 0-100 nqti=905) CALCIUM, [id number] 05:58:00 Test Item Value Reference Range Comments CALCIUM IONIZED (BEAKER) (test wvos=218) 1.04 mmol/L 1.12-1.27 PH, BLOOD (BEAKER) (test vxzw=7421) 7.43 POCT-GLUCOSE [id number] 22:14:00 Test Item Value Reference Range Comments POC-GLUCOSE METER (BEAKER) 236 mg/dL 70-110 TESTED AT [address] (test orpg=9252) [place] [address] POCT-GLUCOSE [id number] 16:54:00 Test Item Value Reference Range Comments POC-GLUCOSE METER (BEAKER) 185 mg/dL 70-110 TESTED AT [address] (test mnjj=8945) [place] [id number]
[2018-09-28 12:34] LABS: Absolute Lymphocytes (CBC) 0.4 K/uL (0.7-4.9); Absolute Monocytes 0.5 K/uL (0.1-1.3); Absolute Neutrophil 3.9 K/uL (1.8-8.0); Basophils % 0.4 % (0-1.3); Eosinophils % 5.3 % (0-4.4); Hematocrit 19.4 % (39.6-49.0); MPV 9.6 fL (7.6-11.3); Monocytes % 9.7 % (3.3-12.3)
[2018-09-28 12:55] LABS: Potassium 3.3 mmol/L (3.5-5.1); Troponin (Emerg Dept Use Only) 0.02 ng/mL (0.0-0.045)
[2018-09-28 13:58] LABS: Anisocytosis 2+; Blood Morphology Comment NOTED (NOT SEEN); Platelet Estimate DECR; Polychromasia 2+; Urine White Blood Cell Casts OK
[2018-09-28 13:59] LABS: Ovalocytes 1+; Teardrop Cell 1+
--- NOTE | 2018-09-28 14:13 | RAD REPORT ---
EXAM DESCRIPTION: Arron Single View09/28/2018 12:29 pm CLINICAL HISTORY: Chest pain COMPARISON: none FINDINGS: The lungs appear clear of acute infiltrate. The heart is mildly enlarged IMPRESSION: No acute abnormalities displayed
--- NOTE | 2018-09-28 15:25 | ER ---
Nurse's Notes [facility] Name: Elfego Barros Jr Age: 68 yrs Sex: Male : 1950 Arrival Date: 09/28/2018 Time: 11:38 Bed 16 Private MD: Nicola Garrison V Diagnosis: Dyspnea, unspecified;Anemia, unspecified;Unspecified cirrhosis of liver Presentation: 09/28 11:44 Presenting complaint: Patient states: Chest pain that started 3 days ago worsening sg today, reports having nausea but has not started vomiting yet, reports feeling short of breath with walking, reports was recently transferred to [facility] but cant really remember what the diagnosis was. Transition of care: patient was not received from another setting of care. Onset of symptoms was September 28, 2018. Risk Assessment: Do you want to hurt yourself or someone else? Patient reports no desire to harm self or others. Initial Sepsis Screen: Does the patient meet any 2 criteria? No. Patient's initial sepsis screen is negative. Does the patient have a suspected source of infection? No. Patient's initial sepsis screen is negative. Care prior to arrival: None. 11:44 Method Of Arrival: Ambulatory sg 11:44 Acuity: SCOT 3 sg Historical: - Allergies: 11:44 bandaids; sg 11:44 Codeine; sg - Home Meds: 13:58 celdinir- 300mg 2x daily [Active]; Centrum Oral [Active]; cholestipol 50mg 2-3x daily tw2 [Active]; Citracal Oral [Active]; clotrimazole 1 % Topical soln 2 times per day [Active]; doxycycline hyclate 100 mg Oral cap 1 cap 2 times per day [Active]; fluocinolone 0.01 % Topical crea 2 times per day [Active]; furosemide 20 mg Oral tab 1 tab once daily [Active]; Humalog 100 unit/mL Sub-Q crtg [Active]; Iron CR Oral 325 mg daily [Active]; Lactulose Oral 6 tps daily [Active]; Lantus 100 unit/mL Sub-Q soln [Active]; Lidoderm 5 % Topical ptmd 1 patch once daily [Active]; Lyrica Oral 1 cap [Active]; Nystatin Oral [Active]; pramipexole 1 mg Oral tab 1 tab twice a day [Active]; Prilosec 20 mg Oral cpDR 1 cap once daily [Active]; spironolactone 25 mg Oral tab 1 tab once daily [Active]; urosodiol- 300mg 2xdaily [Active]; Xifaxan 550 mg Oral tab 1 tab 2 times per day [Active]; Zofran (as hydrochloride) 8 mg Oral tab 1 tab for prn , prn [Active]; - PMHx: 11:44 Diabetes - IDDM; GERD; Hypertension; sg - PSHx: 11:44 Hernia repair; sg - Immunization history:: Adult Immunizations up to date. - Social history:: Smoking status: Patient/guardian denies using tobacco. - Ebola Screening: : Patient negative for fever greater than or equal to 101.5 degrees Fahrenheit, and additional compatible Ebola Virus Disease symptoms Patient denies exposure to infectious person Patient denies travel to an Ebola-affected area in the 21 days before illness onset No symptoms or risks identified at this time. - Family history:: not pertinent. - Hospitalizations: : Patient was recently seen at. Screenin:49 Abuse screen: Denies threats or abuse. Nutritional screening: No deficits noted. tw2 Tuberculosis screening: No symptoms or risk factors identified. Fall Risk Secondary diagnosis (15 points) impaired mobility. Assessment: 11:46 General: Appears in no apparent distress. Behavior is calm, cooperative, appropriate tw2 for age. Neuro: Level of Consciousness is awake, alert, obeys commands, Oriented to person, place, time, situation. Cardiovascular: Reports chest pain, shortness of breath, Heart tones S1 S2 Capillary refill. Respiratory: Respiratory: Breath sounds are clear bilaterally. GI: Abdomen is round noted to have ascites, Bowel sounds present X 4 quads. : No signs and/or symptoms were reported regarding the genitourinary system. Derm: Skin is jaundiced. Musculoskeletal: Range of motion: intact in all extremities. 11:49 Pain: Pain does not radiate. Pain began 2-3 days ago. Cardiovascular: Reports chest tw2 pain, shortness of breath. 12:45 Reassessment: Patient appears in no apparent distress at this time. No changes from tw2 previously documented assessment. Patient and/or family updated on plan of care and expected duration. Pain level reassessed. 13:45 Reassessment: Patient appears in no apparent distress at this time. No changes from tw2 previously documented assessment. Patient and/or family updated on plan of care and expected duration. Pain level reassessed. 14:45 Reassessment: Patient appears in no apparent distress at this time. No changes from tw2 previously documented assessment. Patient and/or family updated on plan of care and expected duration. Pain level reassessed. 15:45 Reassessment: Patient appears in no apparent distress at this time. No changes from tw2 previously documented assessment. Patient and/or family updated on plan of care and expected duration. Pain level reassessed. 16:56 Reassessment: Patient appears in no apparent distress at this time. No changes from tw2 previously documented assessment. Patient and/or family updated on plan of care and expected duration. Pain level reassessed. 17:30 Reassessment: SEE BLOOD TRANSFUSION RECORD WITH PTS CHARGE, 1 UNIT PRBC'S INFUSION tw2 BEGAN AT 1730, blood checks confirmed with Yosvany,ASSOCIATE AGENT INSURANCE SALES at this time and Transfusion record sheet is signed. 17:49 Reassessment: Patient appears in no apparent distress at this time. No changes from tw2 previously documented assessment. Patient and/or family updated on plan of care and expected duration. Pain level reassessed. 18:18 Reassessment: Patient appears in no apparent distress at this time. No changes from tw2 previously documented assessment. Patient and/or family updated on plan of care and expected duration. Pain level reassessed. 18:33 Reassessment: REPORT FOR TRANSFER TO BE CALLED AFTER BLOOD TRANSFUSION, 1 unit PRBC's. tw2 19:00 Reassessment: Patient appears in no apparent distress at this time. Patient and/or cc3 family updated on plan of care and expected duration. Pain level reassessed. Patient is alert, oriented x 3, equal unlabored respirations, skin warm/dry/pink. Received this male patient from morning shift DIMA Wang as a case of anemia and liver cirrhosis for transfer to [facility] after blood transfusion as endorsed. With IV cannula gauge 20 at the left ACV with ongoing 1 unit of PRBC transfusion for hemoglobin of 6.4 which was started at 1730H infusing well; monitored the patient closely. Vital signs charted. 20:00 Reassessment: Patient appears in no apparent distress at this time. Patient and/or cc3 family updated on plan of care and expected duration. Pain level reassessed. Patient is alert, oriented x 3, equal unlabored respirations, skin warm/dry/pink. 1 unit packed RBC completed, called for report but was told by keeler polygraph operator named Deepa that she'll call me back for the unit that will receive the patient kept holding her calls, charge nurse Josey informed. 20:30 Reassessment: [facility] called and report handed over to RN Nicolasa Helms for cc3 continuity of care. Transfer form completed and signed by the patient himself. EMS contacted by the division officer weapons department. 21:10 Reassessment: Patient appears in no apparent distress at this time. Patient and/or cc3 family updated on plan of care and expected duration. Pain level reassessed. Patient is alert, oriented x 3, equal unlabored respirations, skin warm/dry/pink. Blow Down Helper John said [facility] will arrive at another 45 minutes more, patient informed. 21:44 Reassessment: Blow Down Helper John called and said EMS will arrive in 15-20 minutes, cc3 patient informed. 22:10 Reassessment: Patient appears in no apparent distress at this time. Patient and/or cc3 family updated on plan of care and expected duration. Pain level reassessed. Patient is alert, oriented x 3, equal unlabored respirations, skin warm/dry/pink. [facility] came and took patient for transfer. Patient left ER for transfer vitally stable by EMS stretcher. Vital Signs: 11:43 BP 116 / 55; Pulse 60; Resp 18; Temp 97.6; Pulse Ox 99% on R/A; sg 12:45 BP 108 / 49; Pulse 74; Resp 17; Pulse Ox 100% on R/A; tw2 13:45 BP 111 / 44; Pulse 79; Resp 17; Pulse Ox 100% on R/A; tw2 14:45 BP 102 / 52; Pulse 74; Resp 17; Pulse Ox 100% on R/A; tw2 15:30 BP 114 / 54; Pulse 75; Resp 18; Temp 98.7(O); Pulse Ox 99% on R/A; em 16:45 BP 114 / 68; Pulse 76; Resp 14; Pulse Ox 100% on R/A; tw2 17:49 BP 121 / 52; Pulse 59; Resp 16; Pulse Ox 100% on R/A; tw2 18:18 BP 116 / 54; Pulse 77; Resp 15; Pulse Ox 100% on R/A; tw2 18:30 BP 110 / 57; Pulse 71; Resp 16; Temp 97.7(TE); Pulse Ox 100% on R/A; tw2 19:00 BP 105 / 49; Pulse 73; Resp 12 S; Temp 97.7(O); Pulse Ox 100% on R/A; cc3 19:30 BP 101 / 45; Pulse 73; Resp 13 S; Temp 97.7(O); Pulse Ox 100% on R/A; cc3 20:00 BP 120 / 73; Pulse 80; Resp 16 S; Temp 97.7(O); Pulse Ox 100% on R/A; cc3 20:46 BP 121 / 43; Pulse 77; Resp 16 S; Pulse Ox 100% on R/A; cc3 21:46 BP 116 / 50; Pulse 69; Resp 17 S; Pulse Ox 100% on R/A; cc3 22:00 BP 118 / 57; Pulse 72; Resp 16 S; Pulse Ox 100% on R/A; cc3 ED Course: 11:38 Patient arrived in ED. as 11:39 Nicola Garrison MD is Private Physician. as 11:43 Arm band placed on right wrist. sg 11:46 Triage completed. sg 11:47 Trevor Agustin MD is Attending Physician. rn 11:47 Carlito Villarreal NP is PHCP. pm1 11:48 Yosvany Griffiths LVN is Primary Nurse. em 11:48 Patient maintains SpO2 saturation greater than 95% on room air. tw2 11:49 Call light in reach. school lunch monitor on. Pulse ox on. NIBP on. tw2 12:00 Initial lab(s) drawn, by me, sent to lab. Inserted saline lock: 20 gauge in left em antecubital area, using aseptic technique. Blood collected. 12:30 XRAY Chest (1 view) In Process Unspecified. EDMS 14:57 called the Liver educational technology coordinator button tufter at [phone]. eb 14:59 connected Leslie the Liver educational technology coordinator button tufter for [facility] with Dr. elmer Agustin for patient treatment consultation. 15:05 T\T\S collected, blood band applied to patient. em 15:15 initiated a transfer with Vibha at the [facility] transfer center. eb 15:41 administrative approval given by Vibha Ham at the [facility] transfer Center/ eb Dr. Rehman has accepted the patient in transfer/ patient is going to 722/ report to be called to [phone]. 17:09 Primary Nurse role handed off by Yosvany Griffiths LVN tw2 17:09 Kathleen Escalera RN is Primary Nurse. tw2 17:48 Packed RBC Leukored -1 Sent. tw2 18:21 No provider procedures requiring assistance completed. tw2 19:00 Report given to DIMA Moy. tw2 22:10 Patient transferred, IV remains in place. cc3 Administered Medications: No medications were administered Outcome: 15:24 ER care complete, transfer ordered by . rn 22:10 Patient left the ED. cc3 22:10 Transferred by ground EMS to [facility], Transfer form completed. cc3 22:10 Condition: stable 22:10 Instructed on the need for transfer, Demonstrated understanding of instructions. Signatures: Dispatcher [employer] EDMS Jagdish Pinto RN RN Yosvany Griffiths LVN ASSOCIATE AGENT [employer] SAL[employer] em Priti Montgomery Roman, MD MD rn Marinas, Patrick, JIM TRAVEL MANAGER pm1 Kathleen Escalera RN RN tw2 Christina Villarreal Charlene cc3 Corrections: (The following items were deleted from the chart) 18:21 18:18 Pulse 77bpm; Resp 15bpm; Pulse Ox 100% RA; tw2 tw2 18:21 17:30 Reassessment: SEE BLOOD TRANSFUSION RECORD WITH PTS CHARGE, 1 UNIT PRBC'S tw2 INFUSION BEGAN AT 1730 tw2 19:18 19:00 BP 110 / 57; Pulse 71bpm; Resp 16bpm; Pulse Ox 100% RA; Temp 97.7F Temporal; tw2 tw2 19:26 18:33 Reassessment: REPORT FOR TRANSFER TO BE CALLED AFTER BLOOD TRANSFUSION. tw2 tw2
--- NOTE | 2018-09-28 15:25 | EDPHYS ---
Physician Documentation [facility] Name: Elfego Barros Jr Age: 68 yrs Sex: Male : 1950 Arrival Date: 09/28/2018 Time: 11:38 Bed 16 Private MD: Nicola Garrison V ED Physician Trevor Agustin HPI: 09/28 12:41 This 68 yrs old Male presents to ER via Ambulatory with complaints of Chest rn Pain, Shortness Of Breath. 12:41 The patient or guardian reports chest pain that is located primarily in the substernal rn area. Onset: 3 day(s) ago. The pain does not radiate. Associated signs and symptoms: Pertinent positives: cough, shortness of breath, Pertinent negatives: abdominal pain, near syncope. The chest pain is described as aching. Duration: The patient or guardian reports multiple episodes, that are intermittent. Modifying factors: The symptoms are alleviated by nothing. the symptoms are aggravated by exertion. Severity of pain: At its worst the pain was mild in the emergency department the pain is unchanged. The patient has experienced similar episodes in the past. The patient has been recently seen by a physician:. REports 2 recent admissions to [facility], reports first time for constipation and did not require surgery, last week admitted for confusion and electrolyte abnormality, here today for chest pain and sob with exertion, reports walks small distances then gets winded. + swelling of legs but feels like swelling is not as bad as it has been in past, compliant with diuretics. . Historical: - Allergies: 11:44 bandaids; sg 11:44 Codeine; sg - Home Meds: 13:58 celdinir- 300mg 2x daily [Active]; Centrum Oral [Active]; cholestipol 50mg 2-3x daily tw2 [Active]; Citracal Oral [Active]; clotrimazole 1 % Topical soln 2 times per day [Active]; doxycycline hyclate 100 mg Oral cap 1 cap 2 times per day [Active]; fluocinolone 0.01 % Topical crea 2 times per day [Active]; furosemide 20 mg Oral tab 1 tab once daily [Active]; Humalog 100 unit/mL Sub-Q crtg [Active]; Iron CR Oral 325 mg daily [Active]; Lactulose Oral 6 tps daily [Active]; Lantus 100 unit/mL Sub-Q soln [Active]; Lidoderm 5 % Topical ptmd 1 patch once daily [Active]; Lyrica Oral 1 cap [Active]; Nystatin Oral [Active]; pramipexole 1 mg Oral tab 1 tab twice a day [Active]; Prilosec 20 mg Oral cpDR 1 cap once daily [Active]; spironolactone 25 mg Oral tab 1 tab once daily [Active]; urosodiol- 300mg 2xdaily [Active]; Xifaxan 550 mg Oral tab 1 tab 2 times per day [Active]; Zofran (as hydrochloride) 8 mg Oral tab 1 tab for prn , prn [Active]; - PMHx: 11:44 Diabetes - IDDM; GERD; Hypertension; sg - PSHx: 11:44 Hernia repair; sg - Immunization history:: Adult Immunizations up to date. - Social history:: Smoking status: Patient/guardian denies using tobacco. - Ebola Screening: : Patient negative for fever greater than or equal to 101.5 degrees Fahrenheit, and additional compatible Ebola Virus Disease symptoms Patient denies exposure to infectious person Patient denies travel to an Ebola-affected area in the 21 days before illness onset No symptoms or risks identified at this time. - Family history:: not pertinent. - Hospitalizations: : Patient was recently seen at. ROS: 12:41 Constitutional: Negative for fever, chills, and weight loss, Eyes: Negative for injury, rn pain, redness, and discharge, Neck: Negative for injury, pain, and swelling, Cardiovascular: + chest pain, + edema Respiratory: + cough and sob Abdomen/GI: Negative for abdominal pain, nausea, vomiting, diarrhea, and constipation, MS/Extremity: Negative for injury and deformity, Skin: Negative for injury, rash, and discoloration, Neuro: Negative for headache, weakness, numbness, tingling, and seizure. Exam: 12:41 Constitutional: This is a well developed, well nourished patient who is awake, alert, rn and in no acute distress. Head/Face: Normocephalic, atraumatic. Eyes: + mild scleral icterus Cardiovascular: Regular rate and rhythm, No pulse deficits. Small systolic murmur Respiratory: Lungs have equal breath sounds bilaterally, clear to auscultation and percussion. No rales, rhonchi or wheezes noted. No increased work of breathing, no retractions or nasal flaring. Abdomen/GI: soft, non-tender Skin: warm, dry MS/ Extremity: Pulses equal, no cyanosis. Neurovascular intact. Full, normal range of motion. Equal circumference. 3+ pitting edema bilateral lower ext. Neuro: Awake and alert, GCS 15, oriented to person, place, time, and situation. Cranial nerves II-XII grossly intact. Motor strength 5/5 in all extremities. Sensory grossly intact. Cerebellar exam normal. Normal gait. Vital Signs: 11:43 BP 116 / 55; Pulse 60; Resp 18; Temp 97.6; Pulse Ox 99% on R/A; sg 12:45 BP 108 / 49; Pulse 74; Resp 17; Pulse Ox 100% on R/A; tw2 13:45 BP 111 / 44; Pulse 79; Resp 17; Pulse Ox 100% on R/A; tw2 14:45 BP 102 / 52; Pulse 74; Resp 17; Pulse Ox 100% on R/A; tw2 15:30 BP 114 / 54; Pulse 75; Resp 18; Temp 98.7(O); Pulse Ox 99% on R/A; em 16:45 BP 114 / 68; Pulse 76; Resp 14; Pulse Ox 100% on R/A; tw2 17:49 BP 121 / 52; Pulse 59; Resp 16; Pulse Ox 100% on R/A; tw2 18:18 BP 116 / 54; Pulse 77; Resp 15; Pulse Ox 100% on R/A; tw2 18:30 BP 110 / 57; Pulse 71; Resp 16; Temp 97.7(TE); Pulse Ox 100% on R/A; tw2 19:00 BP 105 / 49; Pulse 73; Resp 12 S; Temp 97.7(O); Pulse Ox 100% on R/A; cc3 19:30 BP 101 / 45; Pulse 73; Resp 13 S; Temp 97.7(O); Pulse Ox 100% on R/A; cc3 20:00 BP 120 / 73; Pulse 80; Resp 16 S; Temp 97.7(O); Pulse Ox 100% on R/A; cc3 20:46 BP 121 / 43; Pulse 77; Resp 16 S; Pulse Ox 100% on R/A; cc3 21:46 BP 116 / 50; Pulse 69; Resp 17 S; Pulse Ox 100% on R/A; cc3 22:00 BP 118 / 57; Pulse 72; Resp 16 S; Pulse Ox 100% on R/A; cc3 MDM: 11:47 Patient medically screened. rn 15:22 Differential diagnosis: anemia, dehydration, pulmonary edema. Data reviewed: vital rn signs, nurses notes, lab test result(s), radiologic studies, and as a result, I will admit patient. Counseling: I had a detailed discussion with the patient and/or guardian regarding: the historical points, exam findings, and any diagnostic results supporting the discharge/admit diagnosis, lab results, the need for further work-up and treatment in the hospital. Admission orders: after a detailed discussion of the patient's condition and case, the admit orders are written by me. ED course: SPoke with flight coordinator, has not been scoped in some time, recommended transfer for possible scope and blood transfusion. . 09/28 12:00 Order name: BNP; Complete Time: 13:31 rn 09/28 12:00 Order name: CBC with Diff; Complete Time: 14: rn 09/28 12:00 Order name: Basic Metabolic Panel; Complete Time: 13: rn 09/28 12:00 Order name: Troponin (emerg Dept Use Only); Complete Time: 13: rn 09/28 12:00 Order name: Flu; Complete Time: 13: rn 09/28 12:01 Order name: Procalcitonin; Complete Time: 14: rn 09/28 12:00 Order name: XRAY Chest (1 view); Complete Time: 14:18 rn 09/28 12:00 Order name: EKG; Complete Time: 12: rn 09/28 12:01 Order name: Blood Culture Adult (2) rn 09/28 12:06 Order name: AMMONIA; Complete Time: 13:31 rn 09/28 12:38 Order name: CBC Smear Scan; Complete Time: 14:01 EDDE 09/28 14:56 Order name: Type And Screen rn 09/28 15:33 Order name: Bb Add On eb 09/28 16:14 Order name: Packed RBC Leukored -1 EDDE 09/28 12:00 Order name: IV Start; Complete Time: 12:19 rn 09/28 12:00 Order name: EKG - Nurse/Tech; Complete Time: 12:02 rn 09/28 16:04 Order name: Consent for Blood Transfusion; Complete Time: 16:58 tw2 Administered Medications: No medications were administered Disposition: 09/28/18 15:24 Transfer ordered to [facility]. Diagnosis are Dyspnea, unspecified, Anemia, unspecified, Unspecified cirrhosis of liver. - Reason for transfer: Higher level of care. - Accepting physician is . - Condition is Stable. - Problem is an ongoing problem. - Symptoms have improved. Signatures: Dispatcher [employer] EDMS Jagdish Pinto RN RN sg Trevor Agustin MD MD rn Wise, Tara, RN RN tw2 Farzaneh Carroll cc3 Corrections: (The following items were deleted from the chart) 22:10 15:24 09/28/2018 15:24 Transfer ordered to [facility]. Diagnosis is cc3 Dyspnea, unspecified; Anemia, unspecified; Unspecified cirrhosis of liver. Reason for transfer: Higher level of care. Accepting physician is . Condition is Stable. Problem is an ongoing problem. Symptoms have improved. rn
[2018-09-28] MEDS ORDERED: NA CHLORIDE 0.9% 250 ML ONE (17:11)
--- NOTE | 2018-09-29 12:23 | EKG ---
Test Date: 2018-09-28 Test Time: 11:59:45 Auto Body Detailer: ASHVIN MEASUREMENT RESULTS: Intervals: Rate: 76 [place]: 196 QRSD: 118 QT: 406 QTc: 456 [place]: P: -21 [place]: 196 QRS: -29 T: 152 INTERPRETIVE STATEMENTS: Normal sinus rhythm Left ventricular hypertrophy with QRS widening and repolarization abnormality Possible Lateral infarct, age undetermined Inferior infarct, age undetermined Abnormal ECG Compared to ECG 07/18/2018 16:18:37 Myocardial infarct finding now present Electronically Signed On 09-29-18 12:22:49 CDT by Ehsan Jones
== END 2018-09-28 22:10 | disposition short-term general hospital (02) ==
LOC: ER 11:38
PROC: 30233N1 Transfusion of Nonautologous Red Blood Cells into Peripheral Vein, Percutaneous Approach (ICD-10-PCS; principal; 2018-09-28)
DX: D64.9 Anemia, unspecified (principal); K74.60 Unspecified cirrhosis of liver; I10 Essential (primary) hypertension; E11.9 Type 2 diabetes mellitus without complications; Z79.4 Long term (current) use of insulin; Z88.5 Allergy status to narcotic agent; Z91.048 Other nonmedicinal substance allergy status
CPT/HCPCS: 93005; 87040 ×2; 85025; 80048; 36415; 82140; 86900; 86850; 86901; 84484; 84145; 83880; 87804 ×2; 71045; 99285; 36430; P9016

== ENCOUNTER 2018-10-04 18:28 | Emergency (ER) | payer OTHER, BC ==
--- OUTSIDE RECORDS SUMMARY | 2018-10-04 18:30 | XMS REPORT | Clinical Summary ---
:1950 Author Organization [facility] Address [address] [place] [address] Care Team Providers Name Role Phone Jasmeet Valle MD Primary Care Provider Unavailable Allergies Active Allergy Reactions Severity Noted Date Comments Adhesive Tape-Silicones Other (See Comments) 07/04/2016 Skin tears Codeine GI Intolerance 07/04/2016 nausea Pantoprazole Rash Low 07/04/2016 Dmhawxf-Fkr-Aau Reductase Anaphylaxis High 07/04/2016 seizures Inhibitors Medications [...] INFLUENZA VACCINE 02/12/2018 Results Not on fileafter 10/03/2017 Insurance Payer Benefit Plan / Group Subscriber ID Type Phone Address MEDICARE MEDICARE PART A AND B xxxxxxxxxx Medicare [place], [place] BCBS BCBS PAR/TRAD PLAN xxxxxxxxxxxx Indemnity Advance Directives Patient has advance care planning documents on file. For more information, please contact:Jayme [address] [place] [address]
--- OUTSIDE RECORDS SUMMARY | 2018-10-04 18:40 | XMS REPORT ---
:1950 [facility] [address] [place] [address] Dr. Vazquez [address] [place] [id number] Care Team Providers Name Role Phone AIDEN VERMA Unavailable Unavailable GEOFF SOLIMAN Unavailable Unavailable SHAMSEE, SHARON-DAVID MOSS-AHMED Unavailable Unavailable JALALSABRINA Unavailable Unavailable YURY, MAGDY Unavailable Unavailable OFORDGIN ROLDAN Unavailable Unavailable NAOMI RESENDEZ Unavailable Unavailable PALLAVIROCKY FUENTES Unavailable Unavailable AUGIE HUIZAR Unavailable Unavailable HIMA MAGAÑA Unavailable Unavailable ANDRES AMAYA Unavailable Unavailable LAZARUS RODRÍGUEZ Unavailable Unavailable SMITH SAENZ Unavailable Unavailable INNA DENNIS Unavailable Unavailable CARLOS, STUART Unavailable Unavailable SKEFOS, CHRYSTAN TANMAY Unavailable Unavailable Problems This patient has no known problems. Allergies, Adverse Reactions, Alerts This patient has no known allergies or adverse reactions. Medications This patient has no known medications. Results Test Description Test Time Test Comments Text Results Atomic Results Result Comments U/S, ABDOMINAL, 2018-10-01 50 g of 25% IV FINAL REPORT PATIENT ID: LIMITED 17:11:00 albumin if >5L [id number] Limited abdomen removed Reason for ultrasound.Clinical exam:->large ascites diagnosis ascitesMultiple Should this be transaxial and longitudinal performed at the images were obtained bedside?->No through the patient's abdomen with real time sonography. There is no evidence of a drainable fluid collection. Paracentesis was not performed. Signed: Ingrid Melgar Verified Date/Time: 10/01/2018 17:11:54 Reading Location: [facility] [id number] Ultrasound Reading Room -GLUCOSE METER 2018-10-01 11:39:00 Test Item Value Reference Range Comments POC-GLUCOSE METER (BEAKER) (test 262 mg/dL 70-[address] [facility] [address] gggx=8427) [place] [address] CBC W/PLT COUNT & AUTO [id number] 09:03:00 Test Item Value Reference Range Comments WHITE BLOOD CELL COUNT (BEAKER) (test cqvo=986) 3.6 K/ L 3.5-10.5 RED BLOOD CELL COUNT (BEAKER) (test feyj=978) 2.59 M/ L 4.63-6.08 HEMOGLOBIN (BEAKER) (test rosh=854) 7.7 GM/DL 13.7-17.5 HEMATOCRIT (BEAKER) (test cujp=187) 25.8 % 40.1-51.0 MEAN CORPUSCULAR VOLUME (BEAKER) (test kqgw=611) 99.6 fL 79.0-92.2 MEAN CORPUSCULAR HEMOGLOBIN (BEAKER) (test 29.7 pg 25.7-32.2 wenv=293) MEAN CORPUSCULAR HEMOGLOBIN CONC (BEAKER) (test 29.8 GM/DL 32.3-36.5 ufod=949) RED CELL DISTRIBUTION WIDTH (BEAKER) (test 18.9 % 11.6-14.4 dzbw=473) PLATELET COUNT (BEAKER) (test nrpy=395) 42 K/CU MM 150-450 MEAN PLATELET VOLUME (BEAKER) (test qftw=707) 12.9 fL 9.4-12.4 NUCLEATED RED BLOOD CELLS (BEAKER) (test 0 /100 WBC 0-0 twui=575) (CELLAVISION MANUAL DIFF)2018-10-01 09:03:00 Test Item Value Reference Range Comments NEUTROPHILS - REL (CELLAVISION)(BEAKER) (test 80 % ezrc=1818) LYMPHOCYTES - REL (CELLAVISION)(BEAKER) (test 6 % rges=3274) MONOCYTES - REL (CELLAVISION)(BEAKER) (test 4 % flbu=6159) EOSINOPHILS - REL (CELLAVISION)(BEAKER) (test 9 % rmpa=6105) BASOPHILS - REL (CELLAVISION)(BEAKER) (test 1 % xmlu=2134) NEUTROPHILS - ABS (CELLAVISION)(BEAKER) (test 2.88 K/ul 1.78-5.38 ffhg=2451) LYMPHOCYTES - ABS (CELLAVISION)(BEAKER) (test 0.22 K/ul 1.32-3.57 anse=6004) MONOCYTES - ABS (CELLAVISION)(BEAKER) (test 0.14 K/uL 0.30-0.82 igxc=9311) EOSINOPHILS - ABS (CELLAVISION)(BEAKER) (test 0.32 K/uL 0.04-0.54 okvu=9230) BASOPHILS - ABS (CELLAVISION)(BEAKER) (test 0.04 K/uL 0.01-0.08 xqzz=5854) TOTAL COUNTED (BEAKER) (test tibk=7325) 100 SMUDGE CELLS (BEAKER) (test jiwa=1773) Present GIANT PLATELETS (BEAKER) (test mznd=419) Present ANISOCYTOSIS (BEAKER) (test rkui=555) 1+ few MACROCYTES (BEAKER) (test aqbt=722) 1+ few POIKILOCYTES (BEAKER) (test narp=580) 1+ few OVALOCYTES (BEAKER) (test sjht=296) 1+ few ARTIFACT (CELLAVISION)(BEAKER) (test rytz=9073) Present PLATELET CONCENTRATION (CELLAVISION)(BEAKER) (test Decreased nhjv=8069) Received comment: User comments: Slide comments:POCT-GLUCOSE [id number] 07: 27:00 Test Item Value Reference Range Comments POC-GLUCOSE METER (BEAKER) 199 mg/dL 70-[address] [facility] [address] [facility] (test qehg=0701) [facility] [address] [id number] 05:03:00 Test Item Value Reference Range Comments MAGNESIUM (BEAKER) (test hrnu=540) 2.1 mg/dL 1.6-2.6 BASIC METABOLIC [id number] 05:03:00 Test Item Value Reference Range Comments SODIUM (BEAKER) (test 136 meq/L 136-145 cxvi=350) POTASSIUM (BEAKER) (test 3.6 meq/L 3.5-5.1 oxvp=888) CHLORIDE (BEAKER) (test 103 meq/L 98-107 yajp=556) CO2 (BEAKER) (test 21 meq/L 22-29 wmbu=417) BLOOD UREA NITROGEN 61 mg/dL 7-21 (BEAKER) (test wlrz=426) CREATININE (BEAKER) (test 1.47 mg/dL 0.57-1.25 yief=303) GLUCOSE RANDOM (BEAKER) 146 mg/dL 70-105 (test krhp=284) CALCIUM (BEAKER) (test 8.7 mg/dL 8.4-10.2 vuqt=871) EGFR (BEAKER) (test 47 mL/min/1.73 sq m ESTIMATED GFR IS NOT ecbu=8256) ACCURATE CREATININE CLEARANCE IN PREDICTING GLOMERULAR FILTRATION RATE. ESTIMATED GFR IS NOT APPLICABLE FOR DIALYSIS PATIENTS. Specimen slightly ictericHEPATIC FUNCTION [id number] 05:03:00 Test Item Value Reference Range Comments TOTAL PROTEIN (BEAKER) (test fhof=422) 6.0 gm/dL 6.0-8.3 ALBUMIN (BEAKER) (test qdag=5862) 3.0 g/dL 3.5-5.0 BILIRUBIN TOTAL (BEAKER) (test jjjz=455) 2.6 mg/dL 0.2-1.2 BILIRUBIN DIRECT (BEAKER) (test xnlg=109) 0.8 mg/dL 0.1-0.5 ALKALINE PHOSPHATASE (BEAKER) (test nmdf=918) 108 U/L 40-150 AST (SGOT) (BEAKER) (test lfcl=358) 40 U/L 5-34 ALT (SGPT) (BEAKER) (test ritk=391) 24 U/L 6-55 Specimen slightly ictericPROTHROMBIN [id number] 04:45:00 Test Item Value Reference Range Comments PROTIME (BEAKER) (test gmer=321) 17.3 seconds 11.7-14.7 INR (BEAKER) (test mfnk=025) 1.4 <=5.9 RECOMMENDED COUMADIN/WARFARIN INR THERAPY RANGESSTANDARD DOSE: 2.0 - 3.0 Includes: PROPHYLAXIS forvenous thrombosis, systemic embolization; TREATMENT for venous thrombosis and/or pulmonary embolus.HIGH RISK: Target INR is 2.5-3.5 for patients with mechanical heart valves.POCT-GLUCOSE [id number] 22:58:00 Test Item Value Reference Range Comments POC-GLUCOSE METER (BEAKER) 204 mg/dL 70-110 TESTED AT [address] (test nlbz=0019) [facility] [address] POCT-GLUCOSE [id number] 14:22:00 Test Item Value Reference Range Comments POC-GLUCOSE METER ([facility]) 156 mg/dL 70-110 TEST[facility] AT [place] [id number] [facility] qumu=9582[facility] [address] CBC W/PLT COUNT & AUTO [id number] 11:44:00 Test Item Value Reference Range Comments WHITE BLOOD CELL COUNT 4.2 K/ L 3.5-10.5 (BEAKER) (test dfhq=463) RED BLOOD CELL COUNT (BEAKER) 2.53 M/ L 4.63-6.08 (test bpfv=123) HEMOGLOBIN (BEAKER) (test 7.6 GM/DL 13.7-17.5 sfnd=182) HEMATOCRIT (BEAKER) (test 24.8 % 40.1-51.0 lshi=993) MEAN CORPUSCULAR VOLUME 98.0 fL 79.0-92.2 (BEAKER) (test ppsg=738) MEAN CORPUSCULAR HEMOGLOBIN 30.0 pg 25.7-32.2 (BEAKER) (test vvcz=685) MEAN CORPUSCULAR HEMOGLOBIN 30.6 GM/DL 32.3-36.5 CONC (BEAKER) (test kdho=843) RED CELL DISTRIBUTION WIDTH 19.1 % 11.6-14.4 (BEAKER) (test lnuy=615) PLATELET COUNT (BEAKER) (test 40 K/CU MM 150-450 nbfv=139) MEAN PLATELET VOLUME (BEAKER) fL 9.4-12.4 Unable to report due to (test nlof=314) abnormal Platelet population distribution. NUCLEATED RED BLOOD CELLS 0 /100 WBC 0-0 (BEAKER) (test xahh=037) (CELLAVISION MANUAL DIFF)2018-09-30 11:44:00 Test Item Value Reference Range Comments NEUTROPHILS - REL (CELLAVISION)(BEAKER) (test 76 % dnut=4591) LYMPHOCYTES - REL (CELLAVISION)(BEAKER) (test 5 % rdyf=8977) MONOCYTES - REL (CELLAVISION)(BEAKER) (test 10 % egtu=4244) EOSINOPHILS - REL (CELLAVISION)(BEAKER) (test 8 % fiys=9416) NEUTROPHILS - ABS (CELLAVISION)(BEAKER) (test 3.19 K/ul 1.78-5.38 ftlp=2208) LYMPHOCYTES - ABS (CELLAVISION)(BEAKER) (test 0.21 K/ul 1.32-3.57 oiez=0025) MONOCYTES - ABS (CELLAVISION)(BEAKER) (test 0.42 K/uL 0.30-0.82 deyz=2799) EOSINOPHILS - ABS (CELLAVISION)(BEAKER) (test 0.34 K/uL 0.04-0.54 qvdi=7375) TOTAL COUNTED (BEAKER) (test nmtn=1874) 100 WBC MORPHOLOGY (BEAKER) (test gyla=468) Normal PLT MORPHOLOGY (BEAKER) (test bhel=103) Normal POLYCHROMATOPHILLIC RBCS(BEAKER) (test oxcy=620) 1+ few HYPOCHROMIA (BEAKER) (test yuii=165) 1+ few OVALOCYTES (BEAKER) (test eozb=692) 1+ few ARTIFACT (CELLAVISION)(BEAKER) (test odmi=4111) Present PLATELET CONCENTRATION (CELLAVISION)(BEAKER) (test Decreased btaa=5452) Received comment: User comments: Slide comments:[id number] 07:17:00 Test Item Value Reference Range Comments MAGNESIUM (BEAKER) (test rbwz=761) 2.1 mg/dL 1.6-2.6 BASIC METABOLIC [id number] 07:17:00 Test Item Value Reference Range Comments SODIUM (BEAKER) (test 138 meq/L 136-145 dkec=074) POTASSIUM (BEAKER) (test 3.3 meq/L 3.5-5.1 mdon=559) CHLORIDE (BEAKER) (test 106 meq/L 98-107 cnzz=871) CO2 (BEAKER) (test 20 meq/L 22-29 nxfv=438) BLOOD UREA NITROGEN 70 mg/dL 7-21 (BEAKER) (test felc=297) CREATININE (BEAKER) (test 1.36 mg/dL 0.57-1.25 akfw=046) GLUCOSE RANDOM (BEAKER) 103 mg/dL 70-105 (test tlyp=788) CALCIUM (BEAKER) (test 9.1 mg/dL 8.4-10.2 eabx=880) EGFR (BEAKER) (test 52 mL/min/1.73 sq m ESTIMATED GFR IS NOT agdo=8330) ACCURATE CREATININE CLEARANCE IN PREDICTING GLOMERULAR FILTRATION RATE. ESTIMATED GFR IS NOT APPLICABLE FOR DIALYSIS PATIENTS. Specimen moderately ictericHEPATIC FUNCTION [id number] 07:17:00 Test Item Value Reference Range Comments TOTAL PROTEIN (BEAKER) (test duhq=601) 6.1 gm/dL 6.0-8.3 ALBUMIN (BEAKER) (test sbwa=8998) 3.1 g/dL 3.5-5.0 BILIRUBIN TOTAL (BEAKER) (test bjyw=490) 4.0 mg/dL 0.2-1.2 BILIRUBIN DIRECT (BEAKER) (test znec=192) 0.9 mg/dL 0.1-0.5 ALKALINE PHOSPHATASE (BEAKER) (test hqdc=705) 93 U/L 40-150 AST (SGOT) (BEAKER) (test nfyh=631) 38 U/L 5-34 ALT (SGPT) (BEAKER) (test dkur=886) 20 U/L 6-55 Specimen moderately ictericPROTHROMBIN [id number] 07:12:00 Test Item Value Reference Range Comments PROTIME (BEAKER) (test pfee=097) 17.8 seconds 11.7-14.7 INR (BEAKER) (test xcwl=595) 1.5 <=5.9 RECOMMENDED COUMADIN/WARFARIN INR THERAPY RANGESSTANDARD DOSE: 2.0 - 3.0 Includes: PROPHYLAXIS forvenous thrombosis, systemic embolization; TREATMENT for venous thrombosis and/or pulmonary embolus.HIGH RISK: Target INR is 2.5-3.5 for patients with mechanical heart valves.HEMOGLOBIN AND [id number] 22 :49:00 Test Item Value Reference Range Comments HEMOGLOBIN (BEAKER) (test imye=846) 8.2 GM/DL 13.7-17.5 HEMATOCRIT (BEAKER) (test kbns=457) 25.8 % 40.1-51.0 TROPONIN [id number] 03:13:00 Test Item Value Reference Range Comments TROPONIN I (BEAKER) (test lobd=854) 0.01 ng/mL 0.00-0.03 Troponin I (TnI) levels [...] failure, acidosis, acute neurological disease, and persistent tachyarrhythmia.[id number] 03:07:00 Test Item Value Reference Range Comments MAGNESIUM (BEAKER) (test fosq=348) 2.2 mg/dL 1.6-2.6 BASIC METABOLIC [id number] 03:07:00 Test Item Value Reference Range Comments SODIUM (BEAKER) (test 136 meq/L 136-145 aeqe=731) POTASSIUM (BEAKER) (test 3.5 meq/L 3.5-5.1 stil=556) CHLORIDE (BEAKER) (test 107 meq/L 98-107 pdpw=138) CO2 (BEAKER) (test 19 meq/L 22-29 iyem=993) BLOOD UREA NITROGEN 75 mg/dL 7-21 (BEAKER) (test cmtx=236) CREATININE (BEAKER) (test 1.41 mg/dL 0.57-1.25 dcam=563) GLUCOSE RANDOM (BEAKER) 159 mg/dL 70-105 (test znps=323) CALCIUM (BEAKER) (test 8.6 mg/dL 8.4-10.2 ipmo=641) EGFR (BEAKER) (test 50 mL/min/1.73 sq m ESTIMATED GFR IS NOT tgsu=4099) ACCURATE CREATININE CLEARANCE IN PREDICTING GLOMERULAR FILTRATION RATE. ESTIMATED GFR IS NOT APPLICABLE FOR DIALYSIS PATIENTS. HEPATIC FUNCTION [id number] 03:07:00 Test Item Value Reference Range Comments TOTAL PROTEIN (BEAKER) (test kryp=960) 5.7 gm/dL 6.0-8.3 ALBUMIN (BEAKER) (test pzch=8115) 2.9 g/dL 3.5-5.0 BILIRUBIN TOTAL (BEAKER) (test xelz=059) 2.1 mg/dL 0.2-1.2 BILIRUBIN DIRECT (BEAKER) (test udej=103) 0.8 mg/dL 0.1-0.5 ALKALINE PHOSPHATASE (BEAKER) (test ahld=833) 104 U/L 40-150 AST (SGOT) (BEAKER) (test voqb=619) 36 U/L 5-34 ALT (SGPT) (BEAKER) (test zvbz=087) 22 U/L 6-55 PROTHROMBIN [id number] 03:04:00 Test Item Value Reference Range Comments PROTIME (BEAKER) (test xdta=085) 17.7 seconds 11.7-14.7 INR (BEAKER) (test ficw=835) 1.5 <=5.9 RECOMMENDED COUMADIN/WARFARIN INR THERAPY RANGESSTANDARD DOSE: 2.0 - 3.0 Includes: PROPHYLAXIS forvenous thrombosis, systemic embolization; TREATMENT for venous thrombosis and/or pulmonary embolus.HIGH RISK: Target INR is 2.5-3.5 for patients with mechanical heart valves.CBC W/PLT COUNT & AUTO [id number] 03:00:00 Test Item Value Reference Range Comments WHITE BLOOD CELL COUNT 4.2 K/ L 3.5-10.5 (BEAKER) (test ufmp=116) RED BLOOD CELL COUNT (BEAKER) 2.00 M/ L 4.63-6.08 (test jips=003) HEMOGLOBIN (BEAKER) (test 6.1 GM/DL 13.7-17.5 okgk=232) HEMATOCRIT (BEAKER) (test 19.9 % 40.1-51.0 ixpz=424) MEAN CORPUSCULAR VOLUME 99.5 fL 79.0-92.2 (BEAKER) (test xwnl=670) MEAN CORPUSCULAR HEMOGLOBIN 30.5 pg 25.7-32.2 (BEAKER) (test dgxf=090) MEAN CORPUSCULAR HEMOGLOBIN 30.7 GM/DL 32.3-36.5 CONC (BEAKER) (test valt=258) RED CELL DISTRIBUTION WIDTH 19.9 % 11.6-14.4 (BEAKER) (test jorz=521) PLATELET COUNT (BEAKER) (test 27 K/CU MM 150-450 xjct=138) MEAN PLATELET VOLUME (BEAKER) fL 9.4-12.4 Unable to report due to (test yjuz=285) abnormal Platelet population distribution. NUCLEATED RED BLOOD CELLS 0 /100 WBC 0-0 (BEAKER) (test cflg=369) NEUTROPHILS RELATIVE PERCENT 73 % (BEAKER) (test hatm=924) LYMPHOCYTES RELATIVE PERCENT 10 % (BEAKER) (test iwgf=054) MONOCYTES RELATIVE PERCENT 10 % (BEAKER) (test gwak=596) EOSINOPHILS RELATIVE PERCENT 8 % (BEAKER) (test sksh=015) BASOPHILS RELATIVE PERCENT 0 % (BEAKER) (test ltei=866) NEUTROPHILS ABSOLUTE COUNT 3.03 K/ L 1.78-5.38 (BEAKER) (test pijj=693) LYMPHOCYTES ABSOLUTE COUNT 0.40 K/ L 1.32-3.57 (BEAKER) (test hpif=290) MONOCYTES ABSOLUTE COUNT 0.40 K/ L 0.30-0.82 (BEAKER) (test ycku=874) EOSINOPHILS ABSOLUTE COUNT 0.34 K/ L 0.04-0.54 (BEAKER) (test iabi=799) BASOPHILS ABSOLUTE COUNT 0.01 K/ L 0.01-0.08 (BEAKER) (test hqqs=260) IMMATURE GRANULOCYTES-RELATIVE 0 % 0-1 PERCENT (BEAKER) (test ewxh=2603) POCT-GLUCOSE [id number] 23:59:00 Test Item Value Reference Range Comments POC-GLUCOSE METER (BEAKER) 189 mg/dL 70-110 TESTED AT [address] (test rmyh=4928) [place] [address] BLOOD [id number] 01:01:00 Test Item Value Reference Range Comments CULTURE (BEAKER) (test vmic=6736) No growth in 5 days BLOOD [id number] 01:01:00 Test Item Value Reference Range Comments CULTURE (BEAKER) (test oddw=8292) No growth in 5 days POCT-GLUCOSE [id number] 12:25:00 Test Item Value Reference Range Comments POC-GLUCOSE METER (BEAKER) 213 mg/dL 70-110 TESTED AT [address] (test rbgi=8544) [place] [address] U/S, ABDOMINAL, [id number] 09:37:00Reason for exam:->assess PV patencyFINAL REPORT Ultrasound [...] questionable wall thickening.3. Portal vein thrombosis. Signed: rBet Barone MDReport Verified Date/Time: 09/13/2018 09:37:34 Reading Location: [place] [id number] [facility] Consult Reading Room POCT-GLUCOSE [id number] 08:38:00 Test Item Value Reference Range Comments POC-GLUCOSE METER (BEAKER) 213 mg/dL 70-110 TESTED AT [address] (test karm=6572) [facility] [address] CALCIUM, [id number] 07:21:00 Test Item Value Reference Range Comments CALCIUM IONIZED (BEAKER) (test pklu=565) 1.05 mmol/L 1.12-1.27 PH, BLOOD (BEAKER) (test qpty=2805) 7.47 [id number] 07:20:00 Test Item Value Reference Range Comments PHOSPHORUS (BEAKER) (test pijt=178) 3.0 mg/dL 2.3-4.7 [id number] 07:20:00 Test Item Value Reference Range Comments MAGNESIUM (BEAKER) (test zcpu=449) 2.0 mg/dL 1.6-2.6 COMPREHENSIVE METABOLIC [id number] 07:20:00 Test Item Value Reference Range Comments TOTAL PROTEIN (BEAKER) 6.5 gm/dL 6.0-8.3 (test efhx=093) ALBUMIN (BEAKER) (test 3.3 g/dL 3.5-5.0 jbtp=9444) ALKALINE PHOSPHATASE 124 U/L 40-150 (BEAKER) (test njym=054) BILIRUBIN TOTAL (BEAKER) 2.6 mg/dL 0.2-1.2 (test zaye=340) SODIUM (BEAKER) (test 134 meq/L 136-145 vbmz=232) POTASSIUM (BEAKER) (test 3.6 meq/L 3.5-5.1 wbjk=063) CHLORIDE (BEAKER) (test 102 meq/L 98-107 mqmy=589) CO2 (BEAKER) (test 22 meq/L 22-29 awlh=921) BLOOD UREA NITROGEN 43 mg/dL 7-21 (BEAKER) (test yvzp=966) CREATININE (BEAKER) (test 1.38 mg/dL 0.57-1.25 rhzh=556) GLUCOSE RANDOM (BEAKER) 190 mg/dL 70-105 (test cwbc=756) CALCIUM (BEAKER) (test 9.0 mg/dL 8.4-10.2 vhgo=481) AST (SGOT) (BEAKER) (test 39 U/L 5-34 mmjz=755) ALT (SGPT) (BEAKER) (test 24 U/L 6-55 wbfa=119) EGFR (BEAKER) (test 51 mL/min/1.73 sq m ESTIMATED GFR IS NOT tuxl=5752) ACCURATE CREATININE CLEARANCE IN PREDICTING GLOMERULAR FILTRATION RATE. ESTIMATED GFR IS NOT APPLICABLE FOR DIALYSIS PATIENTS. Specimen slightly ictericPROTHROMBIN [id number] 07:12:00 Test Item Value Reference Range Comments PROTIME (BEAKER) (test xcmb=608) 17.5 seconds 11.7-14.7 INR (BEAKER) (test svih=797) 1.4 <=5.9 RECOMMENDED COUMADIN/WARFARIN INR THERAPY RANGESSTANDARD DOSE: 2.0 - 3.0 Includes: PROPHYLAXIS forvenous thrombosis, systemic embolization; TREATMENT for venous thrombosis and/or pulmonary embolus.HIGH RISK: Target INR is 2.5-3.5 for patients with mechanical heart valves.CBC W/PLT COUNT & AUTO [id number] 06:58:00 Test Item Value Reference Range Comments WHITE BLOOD CELL COUNT (BEAKER) (test xjjl=431) 4.0 K/ L 3.5-10.5 RED BLOOD CELL COUNT (BEAKER) (test eogx=965) 2.48 M/ L 4.63-6.08 HEMOGLOBIN (BEAKER) (test rjjk=541) 7.6 GM/DL 13.7-17.5 HEMATOCRIT (BEAKER) (test opxa=838) 24.3 % 40.1-51.0 MEAN CORPUSCULAR VOLUME (BEAKER) (test lxqz=803) 98.0 fL 79.0-92.2 MEAN CORPUSCULAR HEMOGLOBIN (BEAKER) (test 30.6 pg 25.7-32.2 kvzr=756) MEAN CORPUSCULAR HEMOGLOBIN CONC (BEAKER) (test 31.3 GM/DL 32.3-36.5 rtyb=992) RED CELL DISTRIBUTION WIDTH (BEAKER) (test 17.7 % 11.6-14.4 lswl=912) PLATELET COUNT (BEAKER) (test lspp=521) 60 K/CU MM 150-450 MEAN PLATELET VOLUME (BEAKER) (test htbi=595) 11.7 fL 9.4-12.4 NUCLEATED RED BLOOD CELLS (BEAKER) (test 0 /100 WBC 0-0 ylml=338) NEUTROPHILS RELATIVE PERCENT (BEAKER) (test 68 % cogm=411) LYMPHOCYTES RELATIVE PERCENT (BEAKER) (test 11 % ekqb=535) MONOCYTES RELATIVE PERCENT (BEAKER) (test 12 % ohpt=033) EOSINOPHILS RELATIVE PERCENT (BEAKER) (test 9 % sqao=408) BASOPHILS RELATIVE PERCENT (BEAKER) (test 0 % qdyv=452) NEUTROPHILS ABSOLUTE COUNT (BEAKER) (test 2.73 K/ L 1.78-5.38 uzxk=513) LYMPHOCYTES ABSOLUTE COUNT (BEAKER) (test 0.43 K/ L 1.32-3.57 xeha=295) MONOCYTES ABSOLUTE COUNT (BEAKER) (test bgcq=587) 0.48 K/ L 0.30-0.82 EOSINOPHILS ABSOLUTE COUNT (BEAKER) (test 0.35 K/ L 0.04-0.54 hndd=301) BASOPHILS ABSOLUTE COUNT (BEAKER) (test cidd=305) 0.01 K/ L 0.01-0.08 IMMATURE GRANULOCYTES-RELATIVE PERCENT (BEAKER) 0 % 0-1 (test pczd=5334) POCT-GLUCOSE [id number] 22:44:00 Test Item Value Reference Range Comments POC-GLUCOSE METER (BEAKER) 219 mg/dL 70-110 TESTED AT [address] (test etxy=4667) [facility] [address] C. DIFFICILE GDH [id number] 20:10:00 Test Item Value Reference Range Comments CDT TOXIN (test Negative Negative bibl=[id number]) CDT GDH ANTIGEN (test Negative Negative No indication of Clostridium bpsj=[id number]) difficile infection and no colonization. Discontinue enteric isolation and therapy. Testing performed by [employer] Rapid Cassette Assay. For GDH, published sensitivity of the assay is 98.7% compared to cytotoxicity testing. For Toxin AB, published sensitivity is 87.8% and specificity 99.4% compared to cytotoxicity testing.Verification of kit performance was done by the [facility] Microbiology Lab prior to clinical use.POCT-GLUCOSE [id number] 18:04:00 Test Item Value Reference Range Comments POC-GLUCOSE METER (BEAKER) 233 mg/dL 70-110 TESTED AT [address] (test xowa=5607) [facility] [id number] EOSINOPHIL SMEAR, [id number] 15:30:00 Test Item Value Reference Range Comments EOSINOPHIL SMEAR, URINE (BEAKER) Rare EOS=less than 5% WBCs No EOS seen (test huoc=8034) seen are EOS POCT-GLUCOSE [id number] 15:26:00 Test Item Value Reference Range Comments POC-GLUCOSE METER (BEAKER) 321 mg/dL 70-110 TESTED AT [address] (test kdki=2544) [facility] [address] CREATININE, RANDOM [id number] 15:00:00 Test Item Value Reference Range Comments CREATININE URINE (BEAKER) (test jyro=778) 45.4 mg/dL Reference Range: No NormalsPROTEIN, RANDOM [id number] 15:00:00 Test Item Value Reference Range Comments PROTEIN, URINE (BEAKER) (test xudv=1763) 12 mg/dL 0-14 SODIUM, RANDOM [id number] 15:00:00 Test Item Value Reference Range Comments SODIUM URINE (BEAKER) (test zval=484) 35 meq/L Reference Range: No NormalsOSMOLALITY, [id number] 14:44:00 Test Item Value Reference Range Comments OSMOLALITY URINE (BEAKER) (test ptil=445) 357 mOsm/kg 40-1,400 URINALYSIS WITH MICROSCOPIC IF [id number] 14:41:00 Test Item Value Reference Range Comments COLOR (BEAKER) (test qtvu=453) Yellow CLARITY (BEAKER) (test eakd=034) Clear SPECIFIC GRAVITY UA (BEAKER) (test kigo=562) 1.009 1.001-1.035 PH UA (BEAKER) (test gwlx=382) 5.5 5.0-8.0 PROTEIN UA (BEAKER) (test dxmy=231) Negative Negative GLUCOSE UA (BEAKER) (test gody=944) Negative Negative KETONES UA (BEAKER) (test amct=970) Negative Negative BILIRUBIN UA (BEAKER) (test wgub=102) Negative Negative BLOOD UA (BEAKER) (test gbbo=937) Moderate Negative NITRITE UA (BEAKER) (test juxy=692) Negative Negative LEUKOCYTE ESTERASE UA (BEAKER) (test xtzz=243) Negative Negative UROBILINOGEN UA (BEAKER) (test iuaw=638) 0.2 mg/dL 0.2-1.0 SOURCE(BEAKER) (test addk=1639) URINALYSIS [id number] 14:41:00 Test Item Value Reference Range Comments RBC UA (BEAKER) (test sowp=020) 10 /HPF WBC UA (BEAKER) (test tfxf=266) 2 /HPF SQUAMOUS EPITHELIAL (BEAKER) (test geos=133) < /HPF CRYSTALS, URINE (BEAKER) (test nekk=6293) Rare URINALYSIS W/ REFLEX URINE [id number] 14:41:00 Test Item Value Reference Range Comments COLOR (BEAKER) (test mrwp=531) Yellow CLARITY (BEAKER) (test hvgl=562) Clear SPECIFIC GRAVITY UA (BEAKER) (test fthz=830) 1.009 1.001-1.035 PH UA (BEAKER) (test cdde=961) 5.5 5.0-8.0 PROTEIN UA (BEAKER) (test hnre=913) Negative Negative GLUCOSE UA (BEAKER) (test cyej=770) Negative Negative KETONES UA (BEAKER) (test fkaz=348) Negative Negative BILIRUBIN UA (BEAKER) (test doxl=857) Negative Negative BLOOD UA (BEAKER) (test bemd=544) Moderate Negative NITRITE UA (BEAKER) (test tdtu=545) Negative Negative LEUKOCYTE ESTERASE UA (BEAKER) (test yyam=931) Negative Negative UROBILINOGEN UA (BEAKER) (test jxcb=146) 0.2 mg/dL 0.2-1.0 RBC UA (BEAKER) (test bsde=761) 10 /HPF WBC UA (BEAKER) (test qiuq=233) 2 /HPF SQUAMOUS EPITHELIAL (BEAKER) (test npcr=365) < /HPF CRYSTALS, URINE (BEAKER) (test rmfi=7536) Rare SOURCE(BEAKER) (test anoa=8058) HEMOGLOBIN [id number] 13:57:00 Test Item Value Reference Range Comments HEMOGLOBIN A1C (BEAKER) (test iort=101) 6.1 % 4.3-6.1 PROTHROMBIN [id number] 09:42:00 Test Item Value Reference Range Comments PROTIME (BEAKER) (test ehao=338) 17.9 seconds 11.7-14.7 INR (BEAKER) (test nnxb=771) 1.5 <=5.9 RECOMMENDED COUMADIN/WARFARIN INR THERAPY RANGESSTANDARD DOSE: 2.0 - 3.0 Includes: PROPHYLAXIS forvenous thrombosis, systemic embolization; TREATMENT for venous thrombosis and/or pulmonary embolus.HIGH RISK: Target INR is 2.5-3.5 for patients with mechanical heart valves.[id number] 09:34:00 Test Item Value Reference Range Comments MAGNESIUM (BEAKER) (test hdug=359) 2.2 mg/dL 1.6-2.6 COMPREHENSIVE METABOLIC [id number] 09:34:00 Test Item Value Reference Range Comments TOTAL PROTEIN (BEAKER) 6.3 gm/dL 6.0-8.3 (test oksn=619) ALBUMIN (BEAKER) (test 3.2 g/dL 3.5-5.0 keav=9365) ALKALINE PHOSPHATASE 121 U/L 40-150 (BEAKER) (test depk=451) BILIRUBIN TOTAL (BEAKER) 2.3 mg/dL 0.2-1.2 (test szsy=608) SODIUM (BEAKER) (test 139 meq/L 136-145 atrc=767) POTASSIUM (BEAKER) (test 3.5 meq/L 3.5-5.1 vfbu=881) CHLORIDE (BEAKER) (test 104 meq/L 98-107 dxmj=192) CO2 (BEAKER) (test 26 meq/L 22-29 nffx=016) BLOOD UREA NITROGEN 50 mg/dL 7-21 (BEAKER) (test ginj=375) CREATININE (BEAKER) (test 1.33 mg/dL 0.57-1.25 uamk=614) GLUCOSE RANDOM (BEAKER) 225 mg/dL 70-105 (test lifn=888) CALCIUM (BEAKER) (test 8.9 mg/dL 8.4-10.2 xuze=890) AST (SGOT) (BEAKER) (test 35 U/L 5-34 bibc=120) ALT (SGPT) (BEAKER) (test 26 U/L 6-55 zzmn=333) EGFR (BEAKER) (test 53 mL/min/1.73 sq m ESTIMATED GFR IS NOT udhu=6888) ACCURATE CREATININE CLEARANCE IN PREDICTING GLOMERULAR FILTRATION RATE. ESTIMATED GFR IS NOT APPLICABLE FOR DIALYSIS PATIENTS. Specimen slightly ictericCBC W/PLT COUNT & AUTO [id number] 09:24 :00 Test Item Value Reference Range Comments WHITE BLOOD CELL COUNT (BEAKER) (test lijb=460) 4.5 K/ L 3.5-10.5 RED BLOOD CELL COUNT (BEAKER) (test halb=238) 2.56 M/ L 4.63-6.08 HEMOGLOBIN (BEAKER) (test lbuk=677) 7.9 GM/DL 13.7-17.5 HEMATOCRIT (BEAKER) (test xhyx=390) 25.1 % 40.1-51.0 MEAN CORPUSCULAR VOLUME (BEAKER) (test izrl=350) 98.0 fL 79.0-92.2 MEAN CORPUSCULAR HEMOGLOBIN (BEAKER) (test 30.9 pg 25.7-32.2 vrfx=277) MEAN CORPUSCULAR HEMOGLOBIN CONC (BEAKER) (test 31.5 GM/DL 32.3-36.5 npkd=437) RED CELL DISTRIBUTION WIDTH (BEAKER) (test 17.8 % 11.6-14.4 tlwi=642) PLATELET COUNT (BEAKER) (test hztt=792) 57 K/CU MM 150-450 MEAN PLATELET VOLUME (BEAKER) (test wqle=507) 11.8 fL 9.4-12.4 NUCLEATED RED BLOOD CELLS (BEAKER) (test 0 /100 WBC 0-0 gguk=450) NEUTROPHILS RELATIVE PERCENT (BEAKER) (test 75 % lzjk=148) LYMPHOCYTES RELATIVE PERCENT (BEAKER) (test 8 % ipgm=252) MONOCYTES RELATIVE PERCENT (BEAKER) (test 9 % obpi=537) EOSINOPHILS RELATIVE PERCENT (BEAKER) (test 6 % gogn=003) BASOPHILS RELATIVE PERCENT (BEAKER) (test 1 % kkbl=762) NEUTROPHILS ABSOLUTE COUNT (BEAKER) (test 3.40 K/ L 1.78-5.38 hoiw=986) LYMPHOCYTES ABSOLUTE COUNT (BEAKER) (test 0.38 K/ L 1.32-3.57 wzxq=636) MONOCYTES ABSOLUTE COUNT (BEAKER) (test rzgl=238) 0.40 K/ L 0.30-0.82 EOSINOPHILS ABSOLUTE COUNT (BEAKER) (test 0.28 K/ L 0.04-0.54 aivl=971) BASOPHILS ABSOLUTE COUNT (BEAKER) (test wmzc=340) 0.03 K/ L 0.01-0.08 IMMATURE GRANULOCYTES-RELATIVE PERCENT (BEAKER) 1 % 0-1 (test pren=2058) POCT-GLUCOSE [id number] 08:47:00 Test Item Value Reference Range Comments POC-GLUCOSE METER (BEAKER) 165 mg/dL 70-110 TESTED AT [address] (test aqix=7130) [place] [address] POCT-GLUCOSE [id number] 08:23:00 Test Item Value Reference Range Comments POC-GLUCOSE METER (BEAKER) 198 mg/dL 70-110 TESTED AT [address] (test nggp=9077) [place] [id number] POCT-GLUCOSE [id number] 00:40:00 Test Item Value Reference Range Comments POC-GLUCOSE METER (BEAKER) 196 mg/dL 70-110 TESTED AT [address] (test gglg=2107) [place] [id number] CT, BRAIN, WITHOUT [id number] 17:11:00Reason for exam:->GENERAL ILLNESSWhat is the patient's [...] MDReport Verified Date/Time: 09/11/2018 17:11:57 Reading Location: [facility] Radiology Reading Room TROPONIN [id number] 14:35:00 Test Item Value Reference Range Comments TROPONIN I (BEAKER) (test grow=821) 0.02 ng/mL 0.00-0.03 Troponin I (TnI) levels [...] failure, acidosis, acute neurological disease, and persistent tachyarrhythmia.[id number] 14:29:00 Test Item Value Reference Range Comments MAGNESIUM (BEAKER) (test vqdl=572) 2.1 mg/dL 1.6-2.6 COMPREHENSIVE METABOLIC [id number] 14:29:00 Test Item Value Reference Range Comments TOTAL PROTEIN (BEAKER) 6.7 gm/dL 6.0-8.3 (test plbz=607) ALBUMIN (BEAKER) (test 3.5 g/dL 3.5-5.0 jlst=7613) ALKALINE PHOSPHATASE 144 U/L 40-150 (BEAKER) (test owny=647) BILIRUBIN TOTAL (BEAKER) 2.2 mg/dL 0.2-1.2 (test uwox=124) SODIUM (BEAKER) (test 140 meq/L 136-145 cqlv=523) POTASSIUM (BEAKER) (test 3.6 meq/L 3.5-5.1 kzeq=674) CHLORIDE (BEAKER) (test 103 meq/L 98-107 trne=545) CO2 (BEAKER) (test 27 meq/L 22-29 fltt=546) BLOOD UREA NITROGEN 54 mg/dL 7-21 (BEAKER) (test euza=265) CREATININE (BEAKER) (test 1.50 mg/dL 0.57-1.25 jkaf=263) GLUCOSE RANDOM (BEAKER) 183 mg/dL 70-105 (test mnue=786) CALCIUM (BEAKER) (test 9.6 mg/dL 8.4-10.2 vkgp=941) AST (SGOT) (BEAKER) (test 36 U/L 5-34 ibxx=236) ALT (SGPT) (BEAKER) (test 25 U/L 6-55 gktb=612) EGFR (BEAKER) (test 46 mL/min/1.73 sq m ESTIMATED GFR IS NOT sfjp=0893) ACCURATE CREATININE CLEARANCE IN PREDICTING GLOMERULAR FILTRATION RATE. ESTIMATED GFR IS NOT APPLICABLE FOR DIALYSIS PATIENTS. Specimen slightly [id number] 14:20:00 Test Item Value Reference Range Comments AMMONIA (BEAKER) (test euxt=813) 27 mol/L 18-72 [id number] 14:19:00 Test Item Value Reference Range Comments PROTIME (BEAKER) (test llra=232) 16.8 seconds 11.7-14.7 INR (BEAKER) (test mrjq=125) 1.4 <=5.9 PARTIAL THROMBOPLASTIN TIME (BEAKER) (test 39.3 seconds 22.5-36.0 qwxa=273) RECOMMENDED COUMADIN/WARFARIN INR THERAPY RANGESSTANDARD DOSE: 2.0 - 3.0 Includes: PROPHYLAXIS forvenous thrombosis, systemic embolization; TREATMENT for venous thrombosis and/or pulmonary embolus.HIGH RISK: Target INR is 2.5-3.5 for patients with mechanical heart valves.CBC W/PLT COUNT & AUTO [id number] 14:12:00 Test Item Value Reference Range Comments WHITE BLOOD CELL COUNT (BEAKER) (test vwwy=958) 4.6 K/ L 3.5-10.5 RED BLOOD CELL COUNT (BEAKER) (test hcxl=725) 2.29 M/ L 4.63-6.08 HEMOGLOBIN (BEAKER) (test ntfr=914) 7.0 GM/DL 13.7-17.5 HEMATOCRIT (BEAKER) (test qsse=394) 22.1 % 40.1-51.0 MEAN CORPUSCULAR VOLUME (BEAKER) (test jhnz=212) 96.5 fL 79.0-92.2 MEAN CORPUSCULAR HEMOGLOBIN (BEAKER) (test 30.6 pg 25.7-32.2 pzfg=673) MEAN CORPUSCULAR HEMOGLOBIN CONC (BEAKER) (test 31.7 GM/DL 32.3-36.5 otkb=351) RED CELL DISTRIBUTION WIDTH (BEAKER) (test 17.3 % 11.6-14.4 tmfu=656) PLATELET COUNT (BEAKER) (test uwul=174) 47 K/CU MM 150-450 MEAN PLATELET VOLUME (BEAKER) (test herk=398) 13.0 fL 9.4-12.4 NUCLEATED RED BLOOD CELLS (BEAKER) (test 0 /100 WBC 0-0 jztk=607) NEUTROPHILS RELATIVE PERCENT (BEAKER) (test 79 % petp=891) LYMPHOCYTES RELATIVE PERCENT (BEAKER) (test 9 % dznw=031) MONOCYTES RELATIVE PERCENT (BEAKER) (test 9 % flxu=722) EOSINOPHILS RELATIVE PERCENT (BEAKER) (test 4 % jpgi=167) BASOPHILS RELATIVE PERCENT (BEAKER) (test 0 % lbhh=317) NEUTROPHILS ABSOLUTE COUNT (BEAKER) (test 3.58 K/ L 1.78-5.38 vweo=107) LYMPHOCYTES ABSOLUTE COUNT (BEAKER) (test 0.40 K/ L 1.32-3.57 hstf=428) MONOCYTES ABSOLUTE COUNT (BEAKER) (test spni=975) 0.39 K/ L 0.30-0.82 EOSINOPHILS ABSOLUTE COUNT (BEAKER) (test 0.17 K/ L 0.04-0.54 owrq=813) BASOPHILS ABSOLUTE COUNT (BEAKER) (test fjke=319) 0.01 K/ L 0.01-0.08 IMMATURE GRANULOCYTES-RELATIVE PERCENT (BEAKER) 0 % 0-1 (test hixw=6652) RAD, CHEST, 1 VIEW, NON [id number] 14:12:00Reason for exam:->chest painShould this be performed at the bedside?->YesFINAL REPORT PA and Lateral views of the chest dated 09/11/2018 COMPARISON: April 23 Clinical information: chest pain Comment: Heart is in upper limits of normal in size.Pulmonary vasculature is unremarkable. Lungs are clear. No pulmonary infiltrate or pleural effusion is present. Impression: Stable interval examination of the chest. Signed: Smith Palomino MDReport Verified Date/ Time: 09/11/2018 14:12:27 Reading Location: [address] Consult Reading Room BLOOD [id number] 19:00:00 Test Item Value Reference Range Comments CULTURE (BEAKER) (test iwhe=6372) No growth in 5 days BLOOD [id number] 19:00:00 Test Item Value Reference Range Comments CULTURE (BEAKER) (test dzqf=9928) No growth in 5 days POCT-GLUCOSE [id number] 13:04:00 Test Item Value Reference Range Comments POC-GLUCOSE METER (BEAKER) 216 mg/dL 70-110 TESTED AT [address] (test qpwe=8490) [facility] [address] U/S, ABDOMINAL, [id number] 12:36:00Abdomen limited area? Add comment if clarification [...] 3. No evidence of ascites. Signed: Ernesto Souza MDReport Verified Date/Time: 08/20/2018 12:36:44 Reading Location: [facility] [id number] Ultrasound Reading Room [id number] 11:08:00 Test Item Value Reference Range Comments FIBRINOGEN LEVEL (BEAKER) (test mahy=890) 264 mg/dl 225-434 HEMOGLOBIN AND [id number] 11:02:00 Test Item Value Reference Range Comments HEMOGLOBIN (BEAKER) (test fzjk=826) 7.3 GM/DL 13.7-17.5 HEMATOCRIT (BEAKER) (test blrq=857) 23.7 % 40.1-51.0 POCT-GLUCOSE [id number] 07:34:00 Test Item Value Reference Range Comments POC-GLUCOSE METER (BEAKER) 195 mg/dL 70-[address] [facility] [address] [facility] (test eeur=8157) [facility] [address] CBC W/PLT COUNT & AUTO [id number] 07:16:00 Test Item Value Reference Range Comments WHITE BLOOD CELL COUNT (BEAKER) (test urak=038) 7.0 K/ L 3.5-10.5 RED BLOOD CELL COUNT (BEAKER) (test fllh=567) 2.21 M/ L 4.63-6.08 HEMOGLOBIN (BEAKER) (test dxwl=414) 6.7 GM/DL 13.7-17.5 HEMATOCRIT (BEAKER) (test mchu=233) 21.7 % 40.1-51.0 MEAN CORPUSCULAR VOLUME (BEAKER) (test gvjk=273) 98.2 fL 79.0-92.2 MEAN CORPUSCULAR HEMOGLOBIN (BEAKER) (test 30.3 pg 25.7-32.2 tnxs=922) MEAN CORPUSCULAR HEMOGLOBIN CONC (BEAKER) (test 30.9 GM/DL 32.3-36.5 zwgx=038) RED CELL DISTRIBUTION WIDTH (BEAKER) (test 16.2 % 11.6-14.4 qduo=531) PLATELET COUNT (BEAKER) (test ouwn=959) 38 K/CU MM 150-450 MEAN PLATELET VOLUME (BEAKER) (test txnu=978) 11.9 fL 9.4-12.4 NUCLEATED RED BLOOD CELLS (BEAKER) (test 0 /100 WBC 0-0 glal=980) NEUTROPHILS RELATIVE PERCENT (BEAKER) (test 83 % axbf=187) LYMPHOCYTES RELATIVE PERCENT (BEAKER) (test 7 % eyzw=858) MONOCYTES RELATIVE PERCENT (BEAKER) (test 6 % gzad=457) EOSINOPHILS RELATIVE PERCENT (BEAKER) (test 4 % xtcq=230) BASOPHILS RELATIVE PERCENT (BEAKER) (test 0 % rkmu=723) NEUTROPHILS ABSOLUTE COUNT (BEAKER) (test 5.81 K/ L 1.78-5.38 zgca=847) LYMPHOCYTES ABSOLUTE COUNT (BEAKER) (test 0.49 K/ L 1.32-3.57 eqfa=137) MONOCYTES ABSOLUTE COUNT (BEAKER) (test wkin=817) 0.43 K/ L 0.30-0.82 EOSINOPHILS ABSOLUTE COUNT (BEAKER) (test 0.26 K/ L 0.04-0.54 brtb=413) BASOPHILS ABSOLUTE COUNT (BEAKER) (test cznc=968) 0.03 K/ L 0.01-0.08 IMMATURE GRANULOCYTES-RELATIVE PERCENT (BEAKER) 0 % 0-1 (test qqdc=2101) CALCIUM, [id number] 07:13:00 Test Item Value Reference Range Comments CALCIUM IONIZED (BEAKER) (test zlwj=362) 1.06 mmol/L 1.12-1.27 PH, BLOOD (BEAKER) (test qmni=3361) 7.46 [id number] 06:50:00 Test Item Value Reference Range Comments PHOSPHORUS (BEAKER) (test laqt=547) 3.4 mg/dL 2.3-4.7 [id number] 06:50:00 Test Item Value Reference Range Comments MAGNESIUM (BEAKER) (test nzrz=603) 2.0 mg/dL 1.6-2.6 HEPATIC FUNCTION [id number] 06:50:00 Test Item Value Reference Range Comments TOTAL PROTEIN (BEAKER) (test zljd=327) 5.4 gm/dL 6.0-8.3 ALBUMIN (BEAKER) (test dbpt=9456) 2.4 g/dL 3.5-5.0 BILIRUBIN TOTAL (BEAKER) (test aduw=557) 1.5 mg/dL 0.2-1.2 BILIRUBIN DIRECT (BEAKER) (test rfwu=085) 0.9 mg/dL 0.1-0.5 ALKALINE PHOSPHATASE (BEAKER) (test hxix=061) 109 U/L 40-150 AST (SGOT) (BEAKER) (test hqdz=422) 38 U/L 5-34 ALT (SGPT) (BEAKER) (test sqpe=256) 25 U/L 6-55 COMPREHENSIVE METABOLIC [id number] 06:50:00 Test Item Value Reference Range Comments TOTAL PROTEIN (BEAKER) 5.4 gm/dL 6.0-8.3 (test mmct=625) ALBUMIN (BEAKER) (test 2.4 g/dL 3.5-5.0 lptc=0873) ALKALINE PHOSPHATASE 109 U/L 40-150 (BEAKER) (test vdpb=493) BILIRUBIN TOTAL (BEAKER) 1.5 mg/dL 0.2-1.2 (test cbuu=329) SODIUM (BEAKER) (test 133 meq/L 136-145 wbgo=082) POTASSIUM (BEAKER) (test 3.7 meq/L 3.5-5.1 ngvj=909) CHLORIDE (BEAKER) (test 104 meq/L 98-107 lzwi=519) CO2 (BEAKER) (test 23 meq/L 22-29 zddm=403) BLOOD UREA NITROGEN 60 mg/dL 7-21 (BEAKER) (test evag=785) CREATININE (BEAKER) (test 1.61 mg/dL 0.57-1.25 ytra=672) GLUCOSE RANDOM (BEAKER) 147 mg/dL 70-105 (test rjlu=156) CALCIUM (BEAKER) (test 8.4 mg/dL 8.4-10.2 ffgv=413) AST (SGOT) (BEAKER) (test 38 U/L 5-34 avmr=010) ALT (SGPT) (BEAKER) (test 25 U/L 6-55 nyuw=062) EGFR (BEAKER) (test 43 mL/min/1.73 sq m ESTIMATED GFR IS NOT vkyd=9901) ACCURATE CREATININE CLEARANCE IN PREDICTING GLOMERULAR FILTRATION RATE. ESTIMATED GFR IS NOT APPLICABLE FOR DIALYSIS PATIENTS. PROTHROMBIN [id number] 06:33:00 Test Item Value Reference Range Comments PROTIME (BEAKER) (test juhv=016) 18.4 seconds 11.7-14.7 INR (BEAKER) (test twbh=326) 1.5 <=5.9 RECOMMENDED COUMADIN/WARFARIN INR THERAPY RANGESSTANDARD DOSE: 2.0 - 3.0 Includes: PROPHYLAXIS forvenous thrombosis, systemic embolization; TREATMENT for venous thrombosis and/or pulmonary embolus.HIGH RISK: Target INR is 2.5-3.5 for patients with mechanical heart valves.POCT-GLUCOSE [id number] 01:16:00 Test Item Value Reference Range Comments POC-GLUCOSE METER (BEAKER) 202 mg/dL 70-110 TESTED AT [address] (test grsy=6499) [facility] [address] URINALYSIS W/ REFLEX URINE [id number] 20:10:00 Test Item Value Reference Range Comments COLOR (BEAKER) (test hhbw=017) Yellow CLARITY (BEAKER) (test mfbw=946) Clear SPECIFIC GRAVITY UA (BEAKER) (test wkgd=497) 1.010 1.001-1.035 PH UA (BEAKER) (test mlmu=414) 5.0 5.0-8.0 PROTEIN UA (BEAKER) (test hpne=788) Negative Negative GLUCOSE UA (BEAKER) (test otem=314) Negative Negative KETONES UA (BEAKER) (test ceqa=062) Negative Negative BILIRUBIN UA (BEAKER) (test nlml=677) Negative Negative BLOOD UA (BEAKER) (test knbe=721) Negative Negative NITRITE UA (BEAKER) (test awji=618) Negative Negative LEUKOCYTE ESTERASE UA (BEAKER) (test nkog=618) Negative Negative UROBILINOGEN UA (BEAKER) (test zblb=827) 0.2 mg/dL 0.2-1.0 RBC UA (BEAKER) (test tspg=126) 4 /HPF WBC UA (BEAKER) (test vcgj=167) 2 /HPF HYALINE CASTS (BEAKER) (test rius=626) 3 /LPF SOURCE(BEAKER) (test avlq=2573) RAD, ABDOMEN, 2 [id number] 20:03:00Reason for exam:->abdominal distention, evaluate for bowel [...] Verified Date/Time : 08/19/2018 20:03:18 Reading Location: [facility] C0[facility] Consult Reading Room POCT- GLUCOSE [id number] 12:42:00 Test Item Value Reference Range Comments POC-GLUCOSE METER (BEAKER) 197 mg/dL 70-110 TESTED AT [address] (test feah=5514) [facility] [address] POCT-GLUCOSE [id number] 07:44:00 Test Item Value Reference Range Comments POC-GLUCOSE METER (BEAKER) 149 mg/dL 70-110 TESTED AT [address] (test nrzf=5323) [facility] [address] [id number] 02:37:00 Test Item Value Reference Range Comments AMMONIA (BEAKER) (test qmcc=634) 50 mol/L 18-72 COMPREHENSIVE METABOLIC [id number] 02:26:00 Test Item Value Reference Range Comments TOTAL PROTEIN (BEAKER) 5.9 gm/dL 6.0-8.3 (test fgre=384) ALBUMIN (BEAKER) (test 2.6 g/dL 3.5-5.0 jpha=0032) ALKALINE PHOSPHATASE 117 U/L 40-150 (BEAKER) (test huxr=963) BILIRUBIN TOTAL (BEAKER) 1.8 mg/dL 0.2-1.2 (test uuvs=123) SODIUM (BEAKER) (test 136 meq/L 136-145 wsyd=599) POTASSIUM (BEAKER) (test 3.4 meq/L 3.5-5.1 eihs=377) CHLORIDE (BEAKER) (test 103 meq/L 98-107 knyu=028) CO2 (BEAKER) (test 22 meq/L 22-29 pezt=542) BLOOD UREA NITROGEN 60 mg/dL 7-21 (BEAKER) (test ysml=608) CREATININE (BEAKER) (test 1.52 mg/dL 0.57-1.25 hjgp=728) GLUCOSE RANDOM (BEAKER) 160 mg/dL 70-105 (test hwkl=751) CALCIUM (BEAKER) (test 8.5 mg/dL 8.4-10.2 jnbu=401) AST (SGOT) (BEAKER) (test 46 U/L 5-34 luiz=839) ALT (SGPT) (BEAKER) (test 29 U/L 6-55 eyiv=020) EGFR (BEAKER) (test 46 mL/min/1.73 sq m ESTIMATED GFR IS NOT kmhl=3940) ACCURATE CREATININE CLEARANCE IN PREDICTING GLOMERULAR FILTRATION RATE. ESTIMATED GFR IS NOT APPLICABLE FOR DIALYSIS PATIENTS. PROTHROMBIN TIME/[id number] 01:52:00 Test Item Value Reference Range Comments PROTIME (BEAKER) (test izgb=466) 17.5 seconds 11.7-14.7 INR (BEAKER) (test lvue=896) 1.4 <=5.9 RECOMMENDED COUMADIN/WARFARIN INR THERAPY RANGESSTANDARD DOSE: 2.0 - 3.0 Includes: PROPHYLAXIS forvenous thrombosis, systemic embolization; TREATMENT for venous thrombosis and/or pulmonary embolus.HIGH RISK: Target INR is 2.5-3.5 for patients with mechanical heart valves.CBC W/PLT COUNT & AUTO [id number] 01:48:00 Test Item Value Reference Range Comments WHITE BLOOD CELL COUNT (BEAKER) (test ljso=594) 6.8 K/ L 3.5-10.5 RED BLOOD CELL COUNT (BEAKER) (test maxm=348) 2.51 M/ L 4.63-6.08 HEMOGLOBIN (BEAKER) (test gwwp=083) 7.7 GM/DL 13.7-17.5 HEMATOCRIT (BEAKER) (test rgee=900) 24.5 % 40.1-51.0 MEAN CORPUSCULAR VOLUME (BEAKER) (test lezo=414) 97.6 fL 79.0-92.2 MEAN CORPUSCULAR HEMOGLOBIN (BEAKER) (test 30.7 pg 25.7-32.2 gwos=972) MEAN CORPUSCULAR HEMOGLOBIN CONC (BEAKER) (test 31.4 GM/DL 32.3-36.5 zfzk=748) RED CELL DISTRIBUTION WIDTH (BEAKER) (test 15.9 % 11.6-14.4 jgya=948) PLATELET COUNT (BEAKER) (test sbpr=070) 50 K/CU MM 150-450 MEAN PLATELET VOLUME (BEAKER) (test arhr=689) 13.7 fL 9.4-12.4 NUCLEATED RED BLOOD CELLS (BEAKER) (test 0 /100 WBC 0-0 hqha=249) NEUTROPHILS RELATIVE PERCENT (BEAKER) (test 88 % mqgz=981) LYMPHOCYTES RELATIVE PERCENT (BEAKER) (test 4 % hyzn=862) MONOCYTES RELATIVE PERCENT (BEAKER) (test 5 % oqvj=891) EOSINOPHILS RELATIVE PERCENT (BEAKER) (test 2 % sctl=691) BASOPHILS RELATIVE PERCENT (BEAKER) (test 0 % fojp=207) NEUTROPHILS ABSOLUTE COUNT (BEAKER) (test 6.01 K/ L 1.78-5.38 wxqb=195) LYMPHOCYTES ABSOLUTE COUNT (BEAKER) (test 0.29 K/ L 1.32-3.57 scdy=164) MONOCYTES ABSOLUTE COUNT (BEAKER) (test jwmm=940) 0.32 K/ L 0.30-0.82 EOSINOPHILS ABSOLUTE COUNT (BEAKER) (test 0.13 K/ L 0.04-0.54 oiqt=436) BASOPHILS ABSOLUTE COUNT (BEAKER) (test uxgm=359) 0.01 K/ L 0.01-0.08 IMMATURE GRANULOCYTES-RELATIVE PERCENT (BEAKER) 1 % 0-1 (test bvym=8955) POCT-GLUCOSE [id number] 00:27:00 Test Item Value Reference Range Comments POC-GLUCOSE METER (BEAKER) 201 mg/dL 70-110 TESTED AT [address] (test zzae=3575) [place] [address] BLOOD [id number] 13:00:00 Test Item Value Reference Range Comments CULTURE (BEAKER) (test phjf=6529) No growth in 5 days BLOOD [id number] 13:00:00 Test Item Value Reference Range Comments CULTURE (BEAKER) (test vgnm=4767) No growth in 5 days STOOL CULTURE + SHIGA [id number] 06:17:00 Test Item Value Reference Range Comments CULTURE (BEAKER) (test No Salmonella, Shigella or fctm=1348) Campylobacter isolated STOOL PATH [id number] 06:17:00 Test Item Value Reference Range Comments PATHOGEN EXAM CHARGED (BEAKER) (test hmxz=0748) Done POCT-GLUCOSE [id number] 17:50:00 Test Item Value Reference Range Comments POC-GLUCOSE METER (BEAKER) 200 mg/dL 70-110 TESTED AT [address] (test udow=9878) [place] [address] SHIGA TOXIN [id number] 15:19:00 Test Item Value Reference Range Comments SHIGA TOXIN 1 (BEAKER) (test ynny=1348) Not detected Not detected SHIGA TOXIN 2 (BEAKER) (test ianv=4684) Not detected Not detected POCT-GLUCOSE [id number] 12:17:00 Test Item Value Reference Range Comments POC-GLUCOSE METER (BEAKER) 106 mg/dL 70-110 TESTED AT [address] (test sbwv=6442) [place] [address] C. DIFFICILE GDH [id number] 09:26:00 Test Item Value Reference Range Comments CDT TOXIN (test Negative Negative qgnh=[id number]) CDT GDH ANTIGEN (test Negative Negative No indication of Clostridium gfle=[id number]) difficile infection and no colonization. Discontinue enteric isolation and therapy. Testing performed by Ale[employer] Rapid Cassette Assay. For GDH, published sensitivity of the assay is 98.7% compared to cytotoxicity testing. For Toxin AB, published sensitivity is 87.8% and specificity 99.4% compared to cytotoxicity testing.Verification of kit performance was done by the [facility] Microbiology Lab prior to clinical use.POCT-GLUCOSE [id number] 07:57:00 Test Item Value Reference Range Comments POC-GLUCOSE METER (BEAKER) 291 mg/dL 70-110 TESTED AT [place] [address] [address] (test srhl=0149) [facility] [address] HEPATITIS A ANTIBODY, [id number] 07:41:00 Test Item Value Reference Range Comments HEPATITIS A IGG ANTIBODY (BEAKER) (test lznh=2396) Reactive Nonreactive HEPATITIS B SURFACE [id number] 07:06:00 Test Item Value Reference Range Comments HEPATITIS B SURFACE ANTIBODY (BEAKER) (test < mIU/mL <8.0 rvxw=619) CALCIUM, [id number] 06:50:00 Test Item Value Reference Range Comments CALCIUM IONIZED (BEAKER) (test ecdd=086) 1.04 mmol/L 1.12-1.27 PH, BLOOD (BEAKER) (test oabx=0045) 7.46 CBC W/PLT COUNT & AUTO [id number] 06:42:00 Test Item Value Reference Range Comments WHITE BLOOD CELL COUNT 4.0 K/ L 3.5-10.5 (BEAKER) (test aeih=067) RED BLOOD CELL COUNT (BEAKER) 2.73 M/ L 4.63-6.08 (test yvwv=240) HEMOGLOBIN (BEAKER) (test 8.5 GM/DL 13.7-17.5 urnw=735) HEMATOCRIT (BEAKER) (test 28.0 % 40.1-51.0 psyj=526) MEAN CORPUSCULAR VOLUME 102.6 fL 79.0-92.2 (BEAKER) (test bqew=953) MEAN CORPUSCULAR HEMOGLOBIN 31.1 pg 25.7-32.2 (BEAKER) (test akzx=740) MEAN CORPUSCULAR HEMOGLOBIN 30.4 GM/DL 32.3-36.5 CONC (BEAKER) (test ozki=234) RED CELL DISTRIBUTION WIDTH 17.5 % 11.6-14.4 (BEAKER) (test dprx=099) PLATELET COUNT (BEAKER) (test 46 K/CU MM 150-450 twwu=632) MEAN PLATELET VOLUME (BEAKER) fL 9.4-12.4 Unable to report due to (test nzfy=706) abnormal Platelet population distribution. NUCLEATED RED BLOOD CELLS 0 /100 WBC 0-0 (BEAKER) (test hlwj=554) NEUTROPHILS RELATIVE PERCENT 64 % (BEAKER) (test ampo=009) LYMPHOCYTES RELATIVE PERCENT 16 % (BEAKER) (test ntme=915) MONOCYTES RELATIVE PERCENT 12 % (BEAKER) (test lkot=015) EOSINOPHILS RELATIVE PERCENT 8 % (BEAKER) (test zgkf=024) BASOPHILS RELATIVE PERCENT 1 % (BEAKER) (test fnjr=291) NEUTROPHILS ABSOLUTE COUNT 2.53 K/ L 1.78-5.38 (BEAKER) (test ytpo=421) LYMPHOCYTES ABSOLUTE COUNT 0.63 K/ L 1.32-3.57 (BEAKER) (test dphc=543) MONOCYTES ABSOLUTE COUNT 0.46 K/ L 0.30-0.82 (BEAKER) (test vuse=909) EOSINOPHILS ABSOLUTE COUNT 0.32 K/ L 0.04-0.54 (BEAKER) (test sdem=147) BASOPHILS ABSOLUTE COUNT 0.03 K/ L 0.01-0.08 (BEAKER) (test qfcy=809) IMMATURE GRANULOCYTES-RELATIVE 0 % 0-1 PERCENT (BEAKER) (test mxgi=0457) COMPREHENSIVE METABOLIC [id number] 06:39:00 Test Item Value Reference Range Comments TOTAL PROTEIN (BEAKER) 6.1 gm/dL 6.0-8.3 (test lazz=877) ALBUMIN (BEAKER) (test 2.7 g/dL 3.5-5.0 pfjy=3214) ALKALINE PHOSPHATASE 126 U/L 40-150 (BEAKER) (test aosi=524) BILIRUBIN TOTAL (BEAKER) 2.3 mg/dL 0.2-1.2 (test pimv=755) SODIUM (BEAKER) (test 135 meq/L 136-145 qqzc=708) POTASSIUM (BEAKER) (test 4.3 meq/L 3.5-5.1 pmmc=723) CHLORIDE (BEAKER) (test 109 meq/L 98-107 zikt=583) CO2 (BEAKER) (test 20 meq/L 22-29 bfqg=421) BLOOD UREA NITROGEN 29 mg/dL 7-21 (BEAKER) (test noez=263) CREATININE (BEAKER) (test 1.23 mg/dL 0.57-1.25 dmza=461) GLUCOSE RANDOM (BEAKER) 118 mg/dL 70-105 (test rvak=258) CALCIUM (BEAKER) (test 8.6 mg/dL 8.4-10.2 xjfy=445) AST (SGOT) (BEAKER) (test 58 U/L 5-34 jvmo=771) ALT (SGPT) (BEAKER) (test 35 U/L 6-55 mcvg=431) EGFR (BEAKER) (test 58 mL/min/1.73 sq m ESTIMATED GFR IS NOT hhmm=0424) ACCURATE CREATININE CLEARANCE IN PREDICTING GLOMERULAR FILTRATION RATE. ESTIMATED GFR IS NOT APPLICABLE FOR DIALYSIS PATIENTS. Specimen slightly ictericHEPATIC FUNCTION [id number] 06:39:00 Test Item Value Reference Range Comments TOTAL PROTEIN (BEAKER) (test juvd=071) 6.1 gm/dL 6.0-8.3 ALBUMIN (BEAKER) (test cikd=5292) 2.7 g/dL 3.5-5.0 BILIRUBIN TOTAL (BEAKER) (test yras=648) 2.3 mg/dL 0.2-1.2 BILIRUBIN DIRECT (BEAKER) (test rkur=704) 1.2 mg/dL 0.1-0.5 ALKALINE PHOSPHATASE (BEAKER) (test ihbo=145) 126 U/L 40-150 AST (SGOT) (BEAKER) (test uubh=266) 58 U/L 5-34 ALT (SGPT) (BEAKER) (test dmil=068) 35 U/L 6-55 Specimen slightly [id number] 06:38:00 Test Item Value Reference Range Comments PHOSPHORUS (BEAKER) (test gklv=152) 2.8 mg/dL 2.3-4.7 [id number] 06:38:00 Test Item Value Reference Range Comments MAGNESIUM (BEAKER) (test htxl=098) 1.9 mg/dL 1.6-2.6 POCT-GLUCOSE [id number] 21:42:00 Test Item Value Reference Range Comments POC-GLUCOSE METER (BEAKER) 169 mg/dL 70-[address] [facility] [address] [facility] (test vyjx=4861) [facility] [address] POCT-GLUCOSE [id number] 18:07:00 Test Item Value Reference Range Comments POC-GLUCOSE METER (BEAKER) 242 mg/dL 70-[address] [facility] [address] [facility] (test ryut=9131) [facility] [address] U/S, ABDOMINAL, [id number] 17:37:00Send ascitic fluid for cell count and [...] is therefore not performed. Signed: Jonnie Keith MDReport Verified Date/Time: 07/22/2018 17:37:51 Reading Location: [address] Ultrasound Reading Room 05: 37 PMURINALYSIS W/ [id number] 16:02:00 Test Item Value Reference Range Comments COLOR (BEAKER) (test weks=996) Yellow CLARITY (BEAKER) (test egsg=512) Clear SPECIFIC GRAVITY UA (BEAKER) (test 1.012 1.001-1.035 edrc=589) PH UA (BEAKER) (test czzr=802) 5.5 5.0-8.0 PROTEIN UA (BEAKER) (test ouxl=419) 10 mg/dL Negative GLUCOSE UA (BEAKER) (test wlwn=300) Negative Negative KETONES UA (BEAKER) (test jkyv=009) Negative Negative BILIRUBIN UA (BEAKER) (test wkvk=972) Negative Negative BLOOD UA (BEAKER) (test ibno=774) Moderate Negative NITRITE UA (BEAKER) (test feau=705) Negative Negative LEUKOCYTE ESTERASE UA (BEAKER) (test Negative Negative ulzb=145) UROBILINOGEN UA (BEAKER) (test qgnx=602) 0.2 mg/dL 0.2-1.0 RBC UA (BEAKER) (test xrbe=433) 11 /HPF WBC UA (BEAKER) (test myvi=668) < /HPF MUCUS (BEAKER) (test hhaz=4551) Rare SQUAMOUS EPITHELIAL (BEAKER) (test 1 /HPF ximi=436) HYALINE CASTS (BEAKER) (test cnag=629) 2 /LPF SOURCE(BEAKER) (test tnyr=4354) Urine, Clean Catch FECAL [id number] 14:04:00 Test Item Value Reference Range Comments FECAL LEUKOCYTES (BEAKER) No fecal leukocytes seen No fecal leukocytes seen (test wakf=183) POCT-GLUCOSE [id number] 11:45:00 Test Item Value Reference Range Comments POC-GLUCOSE METER (BEAKER) 233 mg/dL 70-[address] [facility] [address] [facility] (test ligk=9196) [facility] [address] BASIC METABOLIC [id number] 08:41:00 Test Item Value Reference Range Comments SODIUM (BEAKER) (test 139 meq/L 136-145 tsdp=043) POTASSIUM (BEAKER) (test 3.6 meq/L 3.5-5.1 sneb=388) CHLORIDE (BEAKER) (test 112 meq/L 98-107 qjrl=894) CO2 (BEAKER) (test 18 meq/L 22-29 rvmp=957) BLOOD UREA NITROGEN 33 mg/dL 7-21 (BEAKER) (test sdnf=822) CREATININE (BEAKER) (test 1.13 mg/dL 0.57-1.25 heyd=644) GLUCOSE RANDOM (BEAKER) 107 mg/dL 70-105 (test boya=492) CALCIUM (BEAKER) (test 8.9 mg/dL 8.4-10.2 kiqb=292) EGFR (BEAKER) (test 64 mL/min/1.73 sq m ESTIMATED GFR IS NOT qouk=8457) ACCURATE CREATININE CLEARANCE IN PREDICTING GLOMERULAR FILTRATION RATE. ESTIMATED GFR IS NOT APPLICABLE FOR DIALYSIS PATIENTS. Specimen slightly ictericHEPATIC FUNCTION [id number] 08:41:00 Test Item Value Reference Range Comments TOTAL PROTEIN (BEAKER) (test wydk=448) 6.2 gm/dL 6.0-8.3 ALBUMIN (BEAKER) (test uagb=7705) 2.7 g/dL 3.5-5.0 BILIRUBIN TOTAL (BEAKER) (test uvga=402) 2.2 mg/dL 0.2-1.2 BILIRUBIN DIRECT (BEAKER) (test gkel=190) 1.1 mg/dL 0.1-0.5 ALKALINE PHOSPHATASE (BEAKER) (test wfjf=135) 125 U/L 40-150 AST (SGOT) (BEAKER) (test qhld=401) 50 U/L 5-34 ALT (SGPT) (BEAKER) (test ilsn=428) 33 U/L 6-55 Specimen slightly ictericPOCT-GLUCOSE [id number] 08:40:00 Test Item Value Reference Range Comments POC-GLUCOSE METER (BEAKER) 138 mg/dL 70-[address] [facility] [address] [facility] (test szyg=9538) [facility] [address] CBC W/PLT COUNT & AUTO [id number] 08:29:00 Test Item Value Reference Range Comments WHITE BLOOD CELL COUNT (BEAKER) (test burt=438) 4.4 K/ L 3.5-10.5 RED BLOOD CELL COUNT (BEAKER) (test gvnt=751) 2.83 M/ L 4.63-6.08 HEMOGLOBIN (BEAKER) (test gakc=026) 8.9 GM/DL 13.7-17.5 HEMATOCRIT (BEAKER) (test oxtf=528) 28.8 % 40.1-51.0 MEAN CORPUSCULAR VOLUME (BEAKER) (test endd=058) 101.8 fL 79.0-92.2 MEAN CORPUSCULAR HEMOGLOBIN (BEAKER) (test 31.4 pg 25.7-32.2 kajy=683) MEAN CORPUSCULAR HEMOGLOBIN CONC (BEAKER) (test 30.9 GM/DL 32.3-36.5 jpgt=916) RED CELL DISTRIBUTION WIDTH (BEAKER) (test 17.8 % 11.6-14.4 oves=888) PLATELET COUNT (BEAKER) (test jzqp=174) 41 K/CU MM 150-450 MEAN PLATELET VOLUME (BEAKER) (test jals=759) 13.1 fL 9.4-12.4 NUCLEATED RED BLOOD CELLS (BEAKER) (test 0 /100 WBC 0-0 ybss=049) NEUTROPHILS RELATIVE PERCENT (BEAKER) (test 69 % yspd=016) LYMPHOCYTES RELATIVE PERCENT (BEAKER) (test 13 % saor=426) MONOCYTES RELATIVE PERCENT (BEAKER) (test 10 % hvil=105) EOSINOPHILS RELATIVE PERCENT (BEAKER) (test 8 % gijq=481) BASOPHILS RELATIVE PERCENT (BEAKER) (test 1 % blog=973) NEUTROPHILS ABSOLUTE COUNT (BEAKER) (test 3.02 K/ L 1.78-5.38 lqxr=053) LYMPHOCYTES ABSOLUTE COUNT (BEAKER) (test 0.55 K/ L 1.32-3.57 udka=339) MONOCYTES ABSOLUTE COUNT (BEAKER) (test ndgv=797) 0.45 K/ L 0.30-0.82 EOSINOPHILS ABSOLUTE COUNT (BEAKER) (test 0.33 K/ L 0.04-0.54 yfng=971) BASOPHILS ABSOLUTE COUNT (BEAKER) (test nyus=163) 0.02 K/ L 0.01-0.08 IMMATURE GRANULOCYTES-RELATIVE PERCENT (BEAKER) 0 % 0-1 (test hdqa=0999) POCT-GLUCOSE [id number] 02:20:00 Test Item Value Reference Range Comments POC-GLUCOSE METER (BEAKER) 222 mg/dL 70-[address] [facility] [address] [facility] (test mlff=9707) [facility] [address] [id number] 14:18:00 Test Item Value Reference Range Comments PHOSPHORUS (BEAKER) (test zebj=920) 3.4 mg/dL 2.3-4.7 [id number] 14:18:00 Test Item Value Reference Range Comments MAGNESIUM (BEAKER) (test nhpf=430) 1.9 mg/dL 1.6-2.6 BASIC METABOLIC [id number] 14:18:00 Test Item Value Reference Range Comments SODIUM (BEAKER) (test 140 meq/L 136-145 rdoj=936) POTASSIUM (BEAKER) (test 3.3 meq/L 3.5-5.1 qbfp=786) CHLORIDE (BEAKER) (test 108 meq/L 98-107 rxsa=590) CO2 (BEAKER) (test 21 meq/L 22-29 yabp=096) BLOOD UREA NITROGEN 40 mg/dL 7-21 (BEAKER) (test lxac=885) CREATININE (BEAKER) (test 1.41 mg/dL 0.57-1.25 azer=622) GLUCOSE RANDOM (BEAKER) 213 mg/dL 70-105 (test crzx=096) CALCIUM (BEAKER) (test 9.2 mg/dL 8.4-10.2 qugl=555) EGFR (BEAKER) (test 50 mL/min/1.73 sq m ESTIMATED GFR IS NOT nbee=0349) ACCURATE CREATININE CLEARANCE IN PREDICTING GLOMERULAR FILTRATION RATE. ESTIMATED GFR IS NOT APPLICABLE FOR DIALYSIS PATIENTS. Specimen slightly ictericHEPATIC FUNCTION [id number] 14:18:00 Test Item Value Reference Range Comments TOTAL PROTEIN (BEAKER) (test rxjd=900) 7.0 gm/dL 6.0-8.3 ALBUMIN (BEAKER) (test goef=2056) 3.1 g/dL 3.5-5.0 BILIRUBIN TOTAL (BEAKER) (test pfki=655) 2.2 mg/dL 0.2-1.2 BILIRUBIN DIRECT (BEAKER) (test ylvn=333) 1.2 mg/dL 0.1-0.5 ALKALINE PHOSPHATASE (BEAKER) (test tqwt=431) 154 U/L 40-150 AST (SGOT) (BEAKER) (test xubc=373) 49 U/L 5-34 ALT (SGPT) (BEAKER) (test ywhu=954) 36 U/L 6-55 Specimen slightly ictericCBC W/PLT COUNT & AUTO [id number] 14:13 :00 Test Item Value Reference Range Comments WHITE BLOOD CELL COUNT 4.7 K/ L 3.5-10.5 (BEAKER) (test ehhk=023) RED BLOOD CELL COUNT (BEAKER) 2.82 M/ L 4.63-6.08 (test payl=265) HEMOGLOBIN (BEAKER) (test 9.0 GM/DL 13.7-17.5 hstx=123) HEMATOCRIT (BEAKER) (test 28.3 % 40.1-51.0 ewgs=999) MEAN CORPUSCULAR VOLUME 100.4 fL 79.0-92.2 (BEAKER) (test dhcz=894) MEAN CORPUSCULAR HEMOGLOBIN 31.9 pg 25.7-32.2 (BEAKER) (test gfvj=907) MEAN CORPUSCULAR HEMOGLOBIN 31.8 GM/DL 32.3-36.5 CONC (BEAKER) (test vxbj=029) RED CELL DISTRIBUTION WIDTH 17.6 % 11.6-14.4 (BEAKER) (test xstx=698) PLATELET COUNT (BEAKER) (test 41 K/CU MM 150-450 xcgx=067) MEAN PLATELET VOLUME (BEAKER) fL 9.4-12.4 Unable to report due to (test apta=703) abnormal Platelet population distribution. NUCLEATED RED BLOOD CELLS 0 /100 WBC 0-0 (BEAKER) (test gkxy=496) NEUTROPHILS RELATIVE PERCENT 82 % (BEAKER) (test lwsw=923) LYMPHOCYTES RELATIVE PERCENT 8 % (BEAKER) (test ecam=931) MONOCYTES RELATIVE PERCENT 6 % (BEAKER) (test sfsu=332) EOSINOPHILS RELATIVE PERCENT 3 % (BEAKER) (test rqni=092) BASOPHILS RELATIVE PERCENT 0 % (BEAKER) (test znks=487) NEUTROPHILS ABSOLUTE COUNT 3.82 K/ L 1.78-5.38 (BEAKER) (test ezxy=077) LYMPHOCYTES ABSOLUTE COUNT 0.38 K/ L 1.32-3.57 (BEAKER) (test vrxt=509) MONOCYTES ABSOLUTE COUNT 0.29 K/ L 0.30-0.82 (BEAKER) (test upoy=134) EOSINOPHILS ABSOLUTE COUNT 0.13 K/ L 0.04-0.54 (BEAKER) (test kpuy=542) BASOPHILS ABSOLUTE COUNT 0.01 K/ L 0.01-0.08 (BEAKER) (test tjec=602) IMMATURE GRANULOCYTES-RELATIVE 0 % 0-1 PERCENT (BEAKER) (test utkd=2799) [id number] 14:12:00 Test Item Value Reference Range Comments AMMONIA (BEAKER) (test aviw=168) 34 mol/L 18-72 [id number] 14:09:00 Test Item Value Reference Range Comments PROTIME (BEAKER) (test hmdp=040) 16.8 seconds 11.7-14.7 INR (BEAKER) (test ygja=343) 1.4 <=5.9 PARTIAL THROMBOPLASTIN TIME (BEAKER) (test 35.8 seconds 22.5-36.0 ikoa=058) RECOMMENDED COUMADIN/WARFARIN INR THERAPY RANGESSTANDARD DOSE: 2.0 - 3.0 Includes: PROPHYLAXIS forvenous thrombosis, systemic embolization; TREATMENT for venous thrombosis and/or pulmonary embolus.HIGH RISK: Target INR is 2.5-3.5 for patients with mechanical heart valves.CT, ABDOMEN, [id number] 17:43: 00Liver Prctocol-Triple PhaseFINAL REPORT TECHNIQUE: CT [...] MDReport Verified Date/Time: 07/01/2018 17:43:59 Reading Location: [address] Radiology Reading Room [id number] 14:32:00 Test Item Value Reference Range Comments POC-CREATININE (BEAKER) 1.5 mg/dL 0.6-1.[address] [facility] [address] [facility] (test tckf=9864) [facility] [address] POC-EGFR (BEAKER) (test 46 mL/min/1.73M2 nrdj=9324) CBC W/PLT COUNT & AUTO [id number] 14:08:00 Test Item Value Reference Range Comments WHITE BLOOD CELL COUNT (BEAKER) (test dvuq=089) 6.5 K/ L 3.5-10.5 RED BLOOD CELL COUNT (BEAKER) (test mcxf=203) 2.58 M/ L 4.63-6.08 HEMOGLOBIN (BEAKER) (test jkpe=668) 7.8 GM/DL 13.7-17.5 HEMATOCRIT (BEAKER) (test kasd=242) 25.5 % 40.1-51.0 MEAN CORPUSCULAR VOLUME (BEAKER) (test zamp=877) 98.8 fL 79.0-92.2 MEAN CORPUSCULAR HEMOGLOBIN (BEAKER) (test 30.2 pg 25.7-32.2 jubc=250) MEAN CORPUSCULAR HEMOGLOBIN CONC (BEAKER) (test 30.6 GM/DL 32.3-36.5 wgra=376) RED CELL DISTRIBUTION WIDTH (BEAKER) (test 17.1 % 11.6-14.4 kudq=631) PLATELET COUNT (BEAKER) (test qpid=761) 39 K/CU MM 150-450 MEAN PLATELET VOLUME (BEAKER) (test khbw=644) 12.8 fL 9.4-12.4 NUCLEATED RED BLOOD CELLS (BEAKER) (test 0 /100 WBC 0-0 vwke=531) NEUTROPHILS RELATIVE PERCENT (BEAKER) (test 82 % yhrk=922) LYMPHOCYTES RELATIVE PERCENT (BEAKER) (test 7 % vkqf=847) MONOCYTES RELATIVE PERCENT (BEAKER) (test 8 % cdgn=502) EOSINOPHILS RELATIVE PERCENT (BEAKER) (test 3 % hgsi=316) BASOPHILS RELATIVE PERCENT (BEAKER) (test 0 % pgzf=292) NEUTROPHILS ABSOLUTE COUNT (BEAKER) (test 5.37 K/ L 1.78-5.38 yaja=827) LYMPHOCYTES ABSOLUTE COUNT (BEAKER) (test 0.43 K/ L 1.32-3.57 izjk=732) MONOCYTES ABSOLUTE COUNT (BEAKER) (test xjxl=728) 0.51 K/ L 0.30-0.82 EOSINOPHILS ABSOLUTE COUNT (BEAKER) (test 0.19 K/ L 0.04-0.54 bwcd=176) BASOPHILS ABSOLUTE COUNT (BEAKER) (test kdzj=229) 0.02 K/ L 0.01-0.08 IMMATURE GRANULOCYTES-RELATIVE PERCENT (BEAKER) 0 % 0-1 (test djer=8807) COMPREHENSIVE METABOLIC [id number] 14:06:00 Test Item Value Reference Range Comments TOTAL PROTEIN (BEAKER) 6.3 gm/dL 6.0-8.3 (test uxul=585) ALBUMIN (BEAKER) (test 2.8 g/dL 3.5-5.0 vxxe=5006) ALKALINE PHOSPHATASE 157 U/L 40-150 (BEAKER) (test ltbm=031) BILIRUBIN TOTAL (BEAKER) 1.4 mg/dL 0.2-1.2 (test igob=140) SODIUM (BEAKER) (test 137 meq/L 136-145 obus=117) POTASSIUM (BEAKER) (test 3.7 meq/L 3.5-5.1 ljpo=233) CHLORIDE (BEAKER) (test 110 meq/L 98-107 opan=327) CO2 (BEAKER) (test 20 meq/L 22-29 jgpm=208) BLOOD UREA NITROGEN 50 mg/dL 7-21 (BEAKER) (test fwmd=227) CREATININE (BEAKER) (test 1.37 mg/dL 0.57-1.25 rbky=011) GLUCOSE RANDOM (BEAKER) 128 mg/dL 70-105 (test dayi=000) CALCIUM (BEAKER) (test 8.7 mg/dL 8.4-10.2 lwlv=331) AST (SGOT) (BEAKER) (test 41 U/L 5-34 aqld=964) ALT (SGPT) (BEAKER) (test 29 U/L 6-55 pylx=059) EGFR (BEAKER) (test 52 mL/min/1.73 sq m ESTIMATED GFR IS NOT qvcy=2565) ACCURATE CREATININE CLEARANCE IN PREDICTING GLOMERULAR FILTRATION RATE. ESTIMATED GFR IS NOT APPLICABLE FOR DIALYSIS PATIENTS. BILIRUBIN, [id number] 14:06:00 Test Item Value Reference Range Comments BILIRUBIN DIRECT (BEAKER) (test rplm=317) 0.9 mg/dL 0.1-0.5 PROTHROMBIN [id number] 13:50:00 Test Item Value Reference Range Comments PROTIME (BEAKER) (test heso=549) 17.3 seconds 11.7-14.7 INR (BEAKER) (test zabt=333) 1.4 <=5.9 RECOMMENDED COUMADIN/WARFARIN INR THERAPY RANGESSTANDARD DOSE: 2.0 - 3.0 Includes: PROPHYLAXIS forvenous thrombosis, systemic embolization; TREATMENT for venous thrombosis and/or pulmonary embolus.HIGH RISK: Target INR is 2.5-3.5 for patients with mechanical heart valves.URINALYSIS W/ REFLEX URINE [id number] 14:33:00 Test Item Value Reference Range Comments COLOR (BEAKER) (test qrjy=857) Yellow CLARITY (BEAKER) (test oogr=610) Clear SPECIFIC GRAVITY UA (BEAKER) (test djlv=441) 1.012 1.001-1.035 PH UA (BEAKER) (test fwsv=269) 5.5 5.0-8.0 PROTEIN UA (BEAKER) (test ecjs=682) 10 mg/dL Negative GLUCOSE UA (BEAKER) (test fgak=240) Negative Negative KETONES UA (BEAKER) (test sibw=512) Negative Negative BILIRUBIN UA (BEAKER) (test qgcy=266) Negative Negative BLOOD UA (BEAKER) (test snbq=464) Small Negative NITRITE UA (BEAKER) (test elak=851) Negative Negative LEUKOCYTE ESTERASE UA (BEAKER) (test ftqf=243) Negative Negative UROBILINOGEN UA (BEAKER) (test imxk=772) 0.2 mg/dL 0.2-1.0 RBC UA (BEAKER) (test aosw=091) 11 /HPF WBC UA (BEAKER) (test aekw=134) 1 /HPF BACTERIA (BEAKER) (test pddv=730) Rare SQUAMOUS EPITHELIAL (BEAKER) (test wgrw=397) < /HPF HYALINE CASTS (BEAKER) (test kdyy=779) 1 /LPF SOURCE(BEAKER) (test xkbr=1324) POCT-GLUCOSE [id number] 13:22:00 Test Item Value Reference Range Comments POC-GLUCOSE METER (BEAKER) 266 mg/dL 70-[address] [facility] [address] [facility] (test lqec=0888) [facility] [address] VITAMIN B12 AND [id number] 09:11:00 Test Item Value Reference Range Comments VITAMIN B12 (BEAKER) (test pmqv=024) > pg/mL 213-816 FOLATE (BEAKER) (test bnll=165) 16.0 ng/mL >=7.0 [id number] 09:04:00 Test Item Value Reference Range Comments FERRITIN (BEAKER) (test qtlx=168) 94 ng/mL 5-275 IRON, TIBC, % SAT. (WITHOUT FERRITIN)[id number] 08:19:00 Test Item Value Reference Range Comments IRON (BEAKER) (test axhe=544) 35 ug/dL 40-160 TOTAL IRON BINDING CAPACITY (BEAKER) (test 298 ug/dL 250-450 bgyr=141) IRON % SATURATION (2) (BEAKER) (test yxcf=7343) 12 % 20-55 POCT-GLUCOSE [id number] 08:10:00 Test Item Value Reference Range Comments POC-GLUCOSE METER (BEAKER) 148 mg/dL 70-110 TESTED AT [address] (test swyq=6395) [facility] [address] HEPATIC FUNCTION [id number] 04:30:00 Test Item Value Reference Range Comments TOTAL PROTEIN (BEAKER) (test jeup=776) 6.7 gm/dL 6.0-8.3 ALBUMIN (BEAKER) (test gmvi=6397) 3.0 g/dL 3.5-5.0 BILIRUBIN TOTAL (BEAKER) (test tixv=072) 1.8 mg/dL 0.2-1.2 BILIRUBIN DIRECT (BEAKER) (test cuap=772) 1.0 mg/dL 0.1-0.5 ALKALINE PHOSPHATASE (BEAKER) (test jfno=064) 118 U/L 40-150 AST (SGOT) (BEAKER) (test lcdl=697) 48 U/L 5-34 ALT (SGPT) (BEAKER) (test ltyq=749) 31 U/L 6-55 BASIC METABOLIC [id number] 04:30:00 Test Item Value Reference Range Comments SODIUM (BEAKER) (test 140 meq/L 136-145 tlwd=197) POTASSIUM (BEAKER) (test 4.3 meq/L 3.5-5.1 nyoz=301) CHLORIDE (BEAKER) (test 115 meq/L 98-107 asoe=823) CO2 (BEAKER) (test 20 meq/L 22-29 pmvx=519) BLOOD UREA NITROGEN 33 mg/dL 7-21 (BEAKER) (test yhib=843) CREATININE (BEAKER) (test 1.30 mg/dL 0.57-1.25 bpgc=068) GLUCOSE RANDOM (BEAKER) 154 mg/dL 70-105 (test cxbn=412) CALCIUM (BEAKER) (test 8.5 mg/dL 8.4-10.2 hgiz=815) EGFR (BEAKER) (test 55 mL/min/1.73 sq m ESTIMATED GFR IS NOT isoi=2082) ACCURATE CREATININE CLEARANCE IN PREDICTING GLOMERULAR FILTRATION RATE. ESTIMATED GFR IS NOT APPLICABLE FOR DIALYSIS PATIENTS. CBC (HEMOGRAM ONLY)2018-05-31 04:24:00 Test Item Value Reference Range Comments WHITE BLOOD CELL COUNT 5.7 K/ L 3.5-10.5 (BEAKER) (test pecx=613) RED BLOOD CELL COUNT (BEAKER) 2.73 M/ L 4.63-6.08 (test hetv=876) HEMOGLOBIN (BEAKER) (test 8.8 GM/DL 13.7-17.5 lrxz=982) HEMATOCRIT (BEAKER) (test 27.8 % 40.1-51.0 iogb=790) MEAN CORPUSCULAR VOLUME 101.8 fL 79.0-92.2 (BEAKER) (test sngt=739) MEAN CORPUSCULAR HEMOGLOBIN 32.2 pg 25.7-32.2 (BEAKER) (test szop=402) MEAN CORPUSCULAR HEMOGLOBIN 31.7 GM/DL 32.3-36.5 CONC (BEAKER) (test iamg=564) RED CELL DISTRIBUTION WIDTH 17.0 % 11.6-14.4 (BEAKER) (test yvjm=325) PLATELET COUNT (BEAKER) (test 44 K/CU MM 150-450 ewwa=823) MEAN PLATELET VOLUME (BEAKER) 13.3 fL 9.4-12.4 Discordant MPV result (test pmco=992) compared to previous one; Clinical correlation required. NUCLEATED RED BLOOD CELLS 0 /100 WBC 0-0 (BEAKER) (test wugk=726) PROTHROMBIN [id number] 04:05:00 Test Item Value Reference Range Comments PROTIME (BEAKER) (test mqpm=900) 17.4 seconds 11.7-14.7 INR (BEAKER) (test mbsp=642) 1.4 <=5.9 RECOMMENDED COUMADIN/WARFARIN INR THERAPY RANGESSTANDARD DOSE: 2.0 - 3.0 Includes: PROPHYLAXIS forvenous thrombosis, systemic embolization; TREATMENT for venous thrombosis and/or pulmonary embolus.HIGH RISK: Target INR is 2.5-3.5 for patients with mechanical heart valves.POCT-GLUCOSE [id number] 21:35:00 Test Item Value Reference Range Comments POC-GLUCOSE METER (BEAKER) 223 mg/dL 70-110 TESTED AT [address] (test huot=8847) [place] [id number] POCT-GLUCOSE [id number] 17:44:00 Test Item Value Reference Range Comments POC-GLUCOSE METER (BEAKER) 214 mg/dL 70-110 TESTED AT [address] (test qntn=1725) [facility] [address] POCT-GLUCOSE [id number] 12:40:00 Test Item Value Reference Range Comments POC-GLUCOSE METER (BEAKER) 331 mg/dL 70-110 Notified DIMA SIFUENTES/TESTED AT [facility] (test iouv=1922) [address] [place] [address] POCT-GLUCOSE [id number] 07:32:00 Test Item Value Reference Range Comments POC-GLUCOSE METER (BEAKER) 153 mg/dL 70-110 TESTED AT [address] (test ajvp=5459) [facility] [address] [id number] 06:43:00 Test Item Value Reference Range Comments MAGNESIUM (BEAKER) (test zavl=114) 2.5 mg/dL 1.6-2.6 COMPREHENSIVE METABOLIC [id number] 06:43:00 Test Item Value Reference Range Comments TOTAL PROTEIN (BEAKER) 6.5 gm/dL 6.0-8.3 (test nmsa=599) ALBUMIN (BEAKER) (test 3.0 g/dL 3.5-5.0 cisb=7061) ALKALINE PHOSPHATASE 107 U/L 40-150 (BEAKER) (test wsss=858) BILIRUBIN TOTAL (BEAKER) 2.3 mg/dL 0.2-1.2 (test mjps=299) SODIUM (BEAKER) (test 145 meq/L 136-145 uzde=454) POTASSIUM (BEAKER) (test 4.0 meq/L 3.5-5.1 efzk=539) CHLORIDE (BEAKER) (test 117 meq/L 98-107 ceds=856) CO2 (BEAKER) (test 20 meq/L 22-29 yaug=421) BLOOD UREA NITROGEN 41 mg/dL 7-21 (BEAKER) (test nnzm=730) CREATININE (BEAKER) (test 1.29 mg/dL 0.57-1.25 ecae=027) GLUCOSE RANDOM (BEAKER) 122 mg/dL 70-105 (test zkfk=442) CALCIUM (BEAKER) (test 9.0 mg/dL 8.4-10.2 uupb=187) AST (SGOT) (BEAKER) (test 50 U/L 5-34 vzef=472) ALT (SGPT) (BEAKER) (test 34 U/L 6-55 mwoy=077) EGFR (BEAKER) (test 55 mL/min/1.73 sq m ESTIMATED GFR IS NOT zxru=0752) ACCURATE CREATININE CLEARANCE IN PREDICTING GLOMERULAR FILTRATION RATE. ESTIMATED GFR IS NOT APPLICABLE FOR DIALYSIS PATIENTS. Specimen slightly ictericPROTHROMBIN [id number] 06:13:00 Test Item Value Reference Range Comments PROTIME (BEAKER) (test hbzr=184) 17.7 seconds 11.7-14.7 INR (BEAKER) (test hmwy=217) 1.5 <=5.9 RECOMMENDED COUMADIN/WARFARIN INR THERAPY RANGESSTANDARD DOSE: 2.0 - 3.0 Includes: PROPHYLAXIS forvenous thrombosis, systemic embolization; TREATMENT for venous thrombosis and/or pulmonary embolus.HIGH RISK: Target INR is 2.5-3.5 for patients with mechanical heart valves.CBC W/PLT COUNT & AUTO [id number] 06:12:00 Test Item Value Reference Range Comments WHITE BLOOD CELL COUNT (BEAKER) (test rsws=915) 4.3 K/ L 3.5-10.5 RED BLOOD CELL COUNT (BEAKER) (test btpa=708) 2.74 M/ L 4.63-6.08 HEMOGLOBIN (BEAKER) (test pvkj=423) 8.8 GM/DL 13.7-17.5 HEMATOCRIT (BEAKER) (test rvcz=124) 27.9 % 40.1-51.0 MEAN CORPUSCULAR VOLUME (BEAKER) (test kvvt=947) 101.8 fL 79.0-92.2 MEAN CORPUSCULAR HEMOGLOBIN (BEAKER) (test 32.1 pg 25.7-32.2 gglj=745) MEAN CORPUSCULAR HEMOGLOBIN CONC (BEAKER) (test 31.5 GM/DL 32.3-36.5 cutd=886) RED CELL DISTRIBUTION WIDTH (BEAKER) (test 16.9 % 11.6-14.4 dnrh=421) PLATELET COUNT (BEAKER) (test fvco=424) 36 K/CU MM 150-450 MEAN PLATELET VOLUME (BEAKER) (test osej=906) 13.0 fL 9.4-12.4 NUCLEATED RED BLOOD CELLS (BEAKER) (test 0 /100 WBC 0-0 cmse=082) NEUTROPHILS RELATIVE PERCENT (BEAKER) (test 75 % vzgd=736) LYMPHOCYTES RELATIVE PERCENT (BEAKER) (test 12 % hvmu=110) MONOCYTES RELATIVE PERCENT (BEAKER) (test 7 % uqes=320) EOSINOPHILS RELATIVE PERCENT (BEAKER) (test 6 % tpdx=170) BASOPHILS RELATIVE PERCENT (BEAKER) (test 1 % nhul=862) NEUTROPHILS ABSOLUTE COUNT (BEAKER) (test 3.27 K/ L 1.78-5.38 rdnx=444) LYMPHOCYTES ABSOLUTE COUNT (BEAKER) (test 0.50 K/ L 1.32-3.57 hbql=255) MONOCYTES ABSOLUTE COUNT (BEAKER) (test kdjg=709) 0.28 K/ L 0.30-0.82 EOSINOPHILS ABSOLUTE COUNT (BEAKER) (test 0.26 K/ L 0.04-0.54 pxxx=052) BASOPHILS ABSOLUTE COUNT (BEAKER) (test uuvf=288) 0.02 K/ L 0.01-0.08 IMMATURE GRANULOCYTES-RELATIVE PERCENT (BEAKER) 0 % 0-1 (test lppu=5565) POCT-GLUCOSE [id number] 00:36:00 Test Item Value Reference Range Comments POC-GLUCOSE METER (BEAKER) 137 mg/dL 70-[address] [facility] [address] [facility] (test ugmc=1480) [facility] [address] CREATINE KINASE (CK)2018-05-29 15:54:00 Test Item Value Reference Range Comments CREATINE KINASE TOTAL (BEAKER) (test xjwr=680) 112 U/L 29-200 TROPONIN [id number] 15:36:00 Test Item Value Reference Range Comments TROPONIN I (BEAKER) (test mnrw=860) 0.01 ng/mL 0.00-0.03 B-TYPE NATRIURETIC FACTOR (BNP)2018-05-29 15:33:00 Test Item Value Reference Range Comments B-TYPE NATRIURETIC PEPTIDE (BEAKER) (test 314 pg/mL 0-100 ohju=308) [id number] 15:30:00 Test Item Value Reference Range Comments MAGNESIUM (BEAKER) (test szcc=333) 2.3 mg/dL 1.6-2.6 BASIC METABOLIC [id number] 15:30:00 Test Item Value Reference Range Comments SODIUM (BEAKER) (test 138 meq/L 136-145 kdqq=296) POTASSIUM (BEAKER) (test 4.5 meq/L 3.5-5.1 csxs=629) CHLORIDE (BEAKER) (test 110 meq/L 98-107 unjj=672) CO2 (BEAKER) (test 20 meq/L 22-29 mcbg=501) BLOOD UREA NITROGEN 44 mg/dL 7-21 (BEAKER) (test efdq=046) CREATININE (BEAKER) (test 1.44 mg/dL 0.57-1.25 evrv=648) GLUCOSE RANDOM (BEAKER) 206 mg/dL 70-105 (test dqdb=112) CALCIUM (BEAKER) (test 8.5 mg/dL 8.4-10.2 kmnn=124) EGFR (BEAKER) (test 49 mL/min/1.73 sq m ESTIMATED GFR IS NOT jxyp=8652) ACCURATE CREATININE CLEARANCE IN PREDICTING GLOMERULAR FILTRATION RATE. ESTIMATED GFR IS NOT APPLICABLE FOR DIALYSIS PATIENTS. HEPATIC FUNCTION [id number] 15:30:00 Test Item Value Reference Range Comments TOTAL PROTEIN (BEAKER) (test kuev=763) 6.4 gm/dL 6.0-8.3 ALBUMIN (BEAKER) (test epul=7632) 2.9 g/dL 3.5-5.0 BILIRUBIN TOTAL (BEAKER) (test mech=297) 1.8 mg/dL 0.2-1.2 BILIRUBIN DIRECT (BEAKER) (test fnrx=358) 1.1 mg/dL 0.1-0.5 ALKALINE PHOSPHATASE (BEAKER) (test uwjq=330) 120 U/L 40-150 AST (SGOT) (BEAKER) (test muae=682) 47 U/L 5-34 ALT (SGPT) (BEAKER) (test ditr=595) 32 U/L 6-55 [id number] 15:26:00 Test Item Value Reference Range Comments AMMONIA (BEAKER) (test kage=361) 72 mol/L 18-72 [id number] 15:12:00 Test Item Value Reference Range Comments PROTIME (BEAKER) (test bofh=199) 17.7 seconds 11.7-14.7 INR (BEAKER) (test ntjn=709) 1.5 <=5.9 PARTIAL THROMBOPLASTIN TIME (BEAKER) (test 37.6 seconds 22.5-36.0 aqvk=431) RECOMMENDED COUMADIN/WARFARIN INR THERAPY RANGESSTANDARD DOSE: 2.0 - 3.0 Includes: PROPHYLAXIS forvenous thrombosis, systemic embolization; TREATMENT for venous thrombosis and/or pulmonary embolus.HIGH RISK: Target INR is 2.5-3.5 for patients with mechanical heart valves.CT, BRAIN, WITHOUT [id number] 15:06:00Reason for exam:->ALTERED MENTAL STATUSWhat is the [...] further evaluation with MRI is recommended. Signed: Seipel, Baltazar MDReport Verified Date/Time: 05/29/2018 15:06:54 Reading Location: [facility] Radiology Reading Room Electronically signed by: BALTAZAR CASTELLANOS M.D. on 03:06 PMCBC W/PLT COUNT & AUTO [id number] 15:04:00 Test Item Value Reference Range Comments WHITE BLOOD CELL COUNT (BEAKER) (test uggf=023) 4.0 K/ L 3.5-10.5 RED BLOOD CELL COUNT (BEAKER) (test mmom=107) 2.55 M/ L 4.63-6.08 HEMOGLOBIN (BEAKER) (test ylum=215) 8.1 GM/DL 13.7-17.5 HEMATOCRIT (BEAKER) (test ybuo=948) 25.9 % 40.1-51.0 MEAN CORPUSCULAR VOLUME (BEAKER) (test ypbv=619) 101.6 fL 79.0-92.2 MEAN CORPUSCULAR HEMOGLOBIN (BEAKER) (test 31.8 pg 25.7-32.2 syil=614) MEAN CORPUSCULAR HEMOGLOBIN CONC (BEAKER) (test 31.3 GM/DL 32.3-36.5 mbws=726) RED CELL DISTRIBUTION WIDTH (BEAKER) (test 16.6 % 11.6-14.4 rwee=401) PLATELET COUNT (BEAKER) (test ckzh=159) 27 K/CU MM 150-450 MEAN PLATELET VOLUME (BEAKER) (test igqc=001) 12.2 fL 9.4-12.4 NUCLEATED RED BLOOD CELLS (BEAKER) (test 0 /100 WBC 0-0 wxug=872) NEUTROPHILS RELATIVE PERCENT (BEAKER) (test 85 % gafi=964) LYMPHOCYTES RELATIVE PERCENT (BEAKER) (test 7 % ysqr=550) MONOCYTES RELATIVE PERCENT (BEAKER) (test 6 % xmhy=944) EOSINOPHILS RELATIVE PERCENT (BEAKER) (test 1 % ulbp=887) BASOPHILS RELATIVE PERCENT (BEAKER) (test 0 % iagn=870) NEUTROPHILS ABSOLUTE COUNT (BEAKER) (test 3.38 K/ L 1.78-5.38 ifzj=926) LYMPHOCYTES ABSOLUTE COUNT (BEAKER) (test 0.28 K/ L 1.32-3.57 enrc=287) MONOCYTES ABSOLUTE COUNT (BEAKER) (test jrhz=633) 0.22 K/ L 0.30-0.82 EOSINOPHILS ABSOLUTE COUNT (BEAKER) (test 0.05 K/ L 0.04-0.54 fdhd=078) BASOPHILS ABSOLUTE COUNT (BEAKER) (test ctjq=896) 0.01 K/ L 0.01-0.08 IMMATURE GRANULOCYTES-RELATIVE PERCENT (BEAKER) 1 % 0-1 (test nfbh=2938) POCT-GLUCOSE [id number] 14:20:00 Test Item Value Reference Range Comments POC-GLUCOSE METER (BEAKER) 221 mg/dL 70-110 TESTED AT [address] (test xedo=4869) [place] [address] BLOOD [id number] 00:00:00 Test Item Value Reference Range Comments CULTURE (BEAKER) (test tzaw=8072) No growth in 5 days BLOOD [id number] 00:00:00 Test Item Value Reference Range Comments CULTURE (BEAKER) (test yuwp=1624) No growth in 5 days POCT-GLUCOSE [id number] 11:53:00 Test Item Value Reference Range Comments POC-GLUCOSE METER (BEAKER) 259 mg/dL 70-110 TESTED AT [address] (test nnpd=4052) [place] [address] HEMOGLOBIN [id number] 09:43:00 Test Item Value Reference Range Comments HEMOGLOBIN A1C (BEAKER) (test lttq=857) 5.9 % 4.3-6.1 POCT-GLUCOSE [id number] 08:14:00 Test Item Value Reference Range Comments POC-GLUCOSE METER (BEAKER) 122 mg/dL 70-110 TESTED AT [address] (test nnbn=6842) [place] [address] [id number] 07:04:00 Test Item Value Reference Range Comments MAGNESIUM (BEAKER) (test nlew=310) 2.3 mg/dL 1.6-2.6 BASIC METABOLIC [id number] 07:04:00 Test Item Value Reference Range Comments SODIUM (BEAKER) (test 140 meq/L 136-145 lbhf=367) POTASSIUM (BEAKER) (test 4.0 meq/L 3.5-5.1 ewwy=408) CHLORIDE (BEAKER) (test 113 meq/L 98-107 xbzc=165) CO2 (BEAKER) (test 19 meq/L 22-29 fayj=107) BLOOD UREA NITROGEN 31 mg/dL 7-21 (BEAKER) (test gpxp=078) CREATININE (BEAKER) (test 1.27 mg/dL 0.57-1.25 nohm=689) GLUCOSE RANDOM (BEAKER) 75 mg/dL 70-105 (test vouj=065) CALCIUM (BEAKER) (test 9.1 mg/dL 8.4-10.2 qavg=244) EGFR (BEAKER) (test 56 mL/min/1.73 sq m ESTIMATED GFR IS NOT zfbc=3714) ACCURATE CREATININE CLEARANCE IN PREDICTING GLOMERULAR FILTRATION RATE. ESTIMATED GFR IS NOT APPLICABLE FOR DIALYSIS PATIENTS. Specimen slightly ictericHEPATIC FUNCTION [id number] 07:04:00 Test Item Value Reference Range Comments TOTAL PROTEIN (BEAKER) (test tvgj=362) 6.5 gm/dL 6.0-8.3 ALBUMIN (BEAKER) (test ysly=9824) 3.1 g/dL 3.5-5.0 BILIRUBIN TOTAL (BEAKER) (test ggal=970) 2.1 mg/dL 0.2-1.2 BILIRUBIN DIRECT (BEAKER) (test cxzc=147) 1.0 mg/dL 0.1-0.5 ALKALINE PHOSPHATASE (BEAKER) (test xtmw=056) 111 U/L 40-150 AST (SGOT) (BEAKER) (test bouw=008) 52 U/L 5-34 ALT (SGPT) (BEAKER) (test nlep=626) 29 U/L 6-55 Specimen slightly ictericPROTHROMBIN [id number] 06:38:00 Test Item Value Reference Range Comments PROTIME (BEAKER) (test ghfm=368) 17.6 seconds 11.7-14.7 INR (BEAKER) (test ilhi=558) 1.5 <=5.9 RECOMMENDED COUMADIN/WARFARIN INR THERAPY RANGESSTANDARD DOSE: 2.0 - 3.0 Includes: PROPHYLAXIS forvenous thrombosis, systemic embolization; TREATMENT for venous thrombosis and/or pulmonary embolus.HIGH RISK: Target INR is 2.5-3.5 for patients with mechanical heart valves.CBC (HEMOGRAM ONLY)2018-04-25 06:27:00 Test Item Value Reference Range Comments WHITE BLOOD CELL COUNT (BEAKER) (test dfir=391) 3.9 K/ L 3.5-10.5 RED BLOOD CELL COUNT (BEAKER) (test gfex=496) 2.64 M/ L 4.63-6.08 HEMOGLOBIN (BEAKER) (test lddi=154) 8.5 GM/DL 13.7-17.5 HEMATOCRIT (BEAKER) (test ntni=145) 26.9 % 40.1-51.0 MEAN CORPUSCULAR VOLUME (BEAKER) (test nioe=475) 101.9 fL 79.0-92.2 MEAN CORPUSCULAR HEMOGLOBIN (BEAKER) (test 32.2 pg 25.7-32.2 ihec=181) MEAN CORPUSCULAR HEMOGLOBIN CONC (BEAKER) (test 31.6 GM/DL 32.3-36.5 mugq=226) RED CELL DISTRIBUTION WIDTH (BEAKER) (test 17.7 % 11.6-14.4 tezh=423) PLATELET COUNT (BEAKER) (test gcga=913) 42 K/CU MM 150-450 MEAN PLATELET VOLUME (BEAKER) (test mceb=104) 12.9 fL 9.4-12.4 NUCLEATED RED BLOOD CELLS (BEAKER) (test 0 /100 WBC 0-0 cpkt=392) POCT-GLUCOSE [id number] 22:07:00 Test Item Value Reference Range Comments POC-GLUCOSE METER (BEAKER) 211 mg/dL 70-110 TESTED AT [address] (test ydkj=9256) [facility] [address] POCT-GLUCOSE [id number] 18:31:00 Test Item Value Reference Range Comments POC-GLUCOSE METER (BEAKER) 136 mg/dL 70-110 TESTED AT [address] (test nwgl=1532) [facility] [address] POCT-GLUCOSE [id number] 16:06:00 Test Item Value Reference Range Comments POC-GLUCOSE METER (BEAKER) 236 mg/dL 70-110 TESTED AT [address] (test chvr=8912) [facility] [address] PROTHROMBIN [id number] 02:28:00 Test Item Value Reference Range Comments PROTIME (BEAKER) (test hqjs=658) 18.3 seconds 11.7-14.7 INR (BEAKER) (test zqwc=028) 1.5 <=5.9 RECOMMENDED COUMADIN/WARFARIN INR THERAPY RANGESSTANDARD DOSE: 2.0 - 3.0 Includes: PROPHYLAXIS forvenous thrombosis, systemic embolization; TREATMENT for venous thrombosis and/or pulmonary embolus.HIGH RISK: Target INR is 2.5-3.5 for patients with mechanical heart valves.[id number] 02:20:00 Test Item Value Reference Range Comments MAGNESIUM (BEAKER) (test inlj=243) 2.4 mg/dL 1.6-2.6 BASIC METABOLIC [id number] 02:20:00 Test Item Value Reference Range Comments SODIUM (BEAKER) (test 141 meq/L 136-145 cbvr=344) POTASSIUM (BEAKER) (test 3.7 meq/L 3.5-5.1 rbbk=963) CHLORIDE (BEAKER) (test 112 meq/L 98-107 irgg=911) CO2 (BEAKER) (test 22 meq/L 22-29 pdlr=497) BLOOD UREA NITROGEN 41 mg/dL 7-21 (BEAKER) (test qbsp=626) CREATININE (BEAKER) (test 1.26 mg/dL 0.57-1.25 fqlt=220) GLUCOSE RANDOM (BEAKER) 124 mg/dL 70-105 (test ufve=621) CALCIUM (BEAKER) (test 8.5 mg/dL 8.4-10.2 khyg=692) EGFR (BEAKER) (test 57 mL/min/1.73 sq m ESTIMATED GFR IS NOT dgrt=0348) ACCURATE CREATININE CLEARANCE IN PREDICTING GLOMERULAR FILTRATION RATE. ESTIMATED GFR IS NOT APPLICABLE FOR DIALYSIS PATIENTS. HEPATIC FUNCTION [id number] 02:20:00 Test Item Value Reference Range Comments TOTAL PROTEIN (BEAKER) (test ibrv=192) 5.6 gm/dL 6.0-8.3 ALBUMIN (BEAKER) (test mdor=6513) 2.6 g/dL 3.5-5.0 BILIRUBIN TOTAL (BEAKER) (test ahzb=023) 2.0 mg/dL 0.2-1.2 BILIRUBIN DIRECT (BEAKER) (test istf=061) 0.9 mg/dL 0.1-0.5 ALKALINE PHOSPHATASE (BEAKER) (test zctv=058) 114 U/L 40-150 AST (SGOT) (BEAKER) (test fhlj=118) 41 U/L 5-34 ALT (SGPT) (BEAKER) (test pfgj=787) 25 U/L 6-55 CBC (HEMOGRAM ONLY)2018-04-24 02:05:00 Test Item Value Reference Range Comments WHITE BLOOD CELL COUNT (BEAKER) (test udnh=467) 3.6 K/ L 3.5-10.5 RED BLOOD CELL COUNT (BEAKER) (test jdlm=996) 2.39 M/ L 4.63-6.08 HEMOGLOBIN (BEAKER) (test yrdi=123) 7.8 GM/DL 13.7-17.5 HEMATOCRIT (BEAKER) (test tmtk=652) 23.8 % 40.1-51.0 MEAN CORPUSCULAR VOLUME (BEAKER) (test pqyl=347) 99.6 fL 79.0-92.2 MEAN CORPUSCULAR HEMOGLOBIN (BEAKER) (test 32.6 pg 25.7-32.2 fcak=568) MEAN CORPUSCULAR HEMOGLOBIN CONC (BEAKER) (test 32.8 GM/DL 32.3-36.5 qdcn=752) RED CELL DISTRIBUTION WIDTH (BEAKER) (test 17.4 % 11.6-14.4 fvyx=587) PLATELET COUNT (BEAKER) (test kxet=729) 38 K/CU MM 150-450 MEAN PLATELET VOLUME (BEAKER) (test fhzj=138) 12.5 fL 9.4-12.4 NUCLEATED RED BLOOD CELLS (BEAKER) (test 0 /100 WBC 0-0 anft=161) POCT-GLUCOSE [id number] 22:50:00 Test Item Value Reference Range Comments POC-GLUCOSE METER (BEAKER) 146 mg/dL 70-110 TESTED AT [address] (test ojiw=8769) [facility] [address] CT, BRAIN, WITHOUT [id number] 19:45:00Reason for exam:->headacheWhat is the patient's sedation [...] evaluation with MRI is recommended. Signed: Baltazar Castellanosort Verified Date/Time: 04/23/2018 19:45:43 Reading Location: [facility] Radiology Reading Room URINALYSIS W/ [id number] 19:36:00 Test Item Value Reference Range Comments COLOR (BEAKER) (test wmbi=680) Light Yellow CLARITY (BEAKER) (test okrd=312) Clear SPECIFIC GRAVITY UA (BEAKER) (test sgvq=924) 1.006 1.001-1.035 PH UA (BEAKER) (test mrke=249) 6.0 5.0-8.0 PROTEIN UA (BEAKER) (test dbnj=638) Negative Negative GLUCOSE UA (BEAKER) (test jrmc=513) Negative Negative KETONES UA (BEAKER) (test unoq=552) Negative Negative BILIRUBIN UA (BEAKER) (test elhp=113) Negative Negative BLOOD UA (BEAKER) (test ceid=117) Small Negative NITRITE UA (BEAKER) (test hwib=879) Negative Negative LEUKOCYTE ESTERASE UA (BEAKER) (test equl=817) Negative Negative UROBILINOGEN UA (BEAKER) (test lplu=783) 0.2 mg/dL 0.2-1.0 RBC UA (BEAKER) (test evqj=837) 2 /HPF WBC UA (BEAKER) (test sijt=378) < /HPF BACTERIA (BEAKER) (test ybnq=171) Rare SOURCE(BEAKER) (test pxqn=9853) [id number] 19:01:00 Test Item Value Reference Range Comments PHOSPHORUS (BEAKER) (test cnoe=258) 3.0 mg/dL 2.3-4.7 BASIC METABOLIC [id number] 19:01:00 Test Item Value Reference Range Comments SODIUM (BEAKER) (test 137 meq/L 136-145 dfjy=568) POTASSIUM (BEAKER) (test 4.1 meq/L 3.5-5.1 mycb=673) CHLORIDE (BEAKER) (test 108 meq/L 98-107 bmfp=486) CO2 (BEAKER) (test 21 meq/L 22-29 utyv=916) BLOOD UREA NITROGEN 42 mg/dL 7-21 (BEAKER) (test lbda=911) CREATININE (BEAKER) (test 1.43 mg/dL 0.57-1.25 saim=362) GLUCOSE RANDOM (BEAKER) 169 mg/dL 70-105 (test qjuj=911) CALCIUM (BEAKER) (test 8.7 mg/dL 8.4-10.2 nbbd=348) EGFR (BEAKER) (test 49 mL/min/1.73 sq m ESTIMATED GFR IS NOT vpvg=6052) ACCURATE CREATININE CLEARANCE IN PREDICTING GLOMERULAR FILTRATION RATE. ESTIMATED GFR IS NOT APPLICABLE FOR DIALYSIS PATIENTS. Specimen slightly ictericHEPATIC FUNCTION [id number] 19:01:00 Test Item Value Reference Range Comments TOTAL PROTEIN (BEAKER) (test ikit=552) 6.6 gm/dL 6.0-8.3 ALBUMIN (BEAKER) (test ticc=1598) 3.0 g/dL 3.5-5.0 BILIRUBIN TOTAL (BEAKER) (test gtyo=061) 2.1 mg/dL 0.2-1.2 BILIRUBIN DIRECT (BEAKER) (test eidk=039) 1.1 mg/dL 0.1-0.5 ALKALINE PHOSPHATASE (BEAKER) (test ikjs=198) 142 U/L 40-150 AST (SGOT) (BEAKER) (test fhzn=835) 47 U/L 5-34 ALT (SGPT) (BEAKER) (test xxfn=742) 28 U/L 6-55 Specimen slightly [id number] 19:01:00 Test Item Value Reference Range Comments LIPASE (BEAKER) (test hkdj=245) 70 U/L 8-78 Specimen slightly ictericRAD, CHEST, PA OR AP, 1 [id number] 18:59:00Reason for exam:->chest painShould this be performed [...] Verified Date /Time: 04/23/2018 18:59:55 Reading Location: [address] Consult Reading Room PT/ [id number] 18:57:00 Test Item Value Reference Range Comments PROTIME (BEAKER) (test tgtp=252) 17.3 seconds 11.7-14.7 INR (BEAKER) (test blvf=722) 1.4 <=5.9 PARTIAL THROMBOPLASTIN TIME (BEAKER) (test 36.0 seconds 22.5-36.0 wmbg=379) RECOMMENDED COUMADIN/WARFARIN INR THERAPY RANGESSTANDARD DOSE: 2.0 - 3.0 Includes: PROPHYLAXIS forvenous thrombosis, systemic embolization; TREATMENT for venous thrombosis and/or pulmonary embolus.HIGH RISK: Target INR is 2.5-3.5 for patients with mechanical heart valves.[id number] 18:52:00 Test Item Value Reference Range Comments AMMONIA (BEAKER) (test mnvs=280) 45 mol/L 18-72 CBC W/PLT COUNT & AUTO [id number] 18:47:00 Test Item Value Reference Range Comments WHITE BLOOD CELL COUNT (BEAKER) (test bsjs=930) 4.2 K/ L 3.5-10.5 RED BLOOD CELL COUNT (BEAKER) (test ogkb=523) 2.80 M/ L 4.63-6.08 HEMOGLOBIN (BEAKER) (test vxeu=904) 8.9 GM/DL 13.7-17.5 HEMATOCRIT (BEAKER) (test eufw=540) 27.7 % 40.1-51.0 MEAN CORPUSCULAR VOLUME (BEAKER) (test plus=477) 98.9 fL 79.0-92.2 MEAN CORPUSCULAR HEMOGLOBIN (BEAKER) (test 31.8 pg 25.7-32.2 uyzg=946) MEAN CORPUSCULAR HEMOGLOBIN CONC (BEAKER) (test 32.1 GM/DL 32.3-36.5 fwgx=081) RED CELL DISTRIBUTION WIDTH (BEAKER) (test 17.2 % 11.6-14.4 pulz=657) PLATELET COUNT (BEAKER) (test pepw=525) 35 K/CU MM 150-450 MEAN PLATELET VOLUME (BEAKER) (test bjqf=871) 11.8 fL 9.4-12.4 NUCLEATED RED BLOOD CELLS (BEAKER) (test 0 /100 WBC 0-0 ukpl=927) NEUTROPHILS RELATIVE PERCENT (BEAKER) (test 79 % qkwx=415) LYMPHOCYTES RELATIVE PERCENT (BEAKER) (test 9 % bjxd=795) MONOCYTES RELATIVE PERCENT (BEAKER) (test 7 % lfxe=492) EOSINOPHILS RELATIVE PERCENT (BEAKER) (test 3 % bkjo=935) BASOPHILS RELATIVE PERCENT (BEAKER) (test 1 % lcjg=353) NEUTROPHILS ABSOLUTE COUNT (BEAKER) (test 3.32 K/ L 1.78-5.38 usnt=549) LYMPHOCYTES ABSOLUTE COUNT (BEAKER) (test 0.39 K/ L 1.32-3.57 obbh=109) MONOCYTES ABSOLUTE COUNT (BEAKER) (test haah=099) 0.31 K/ L 0.30-0.82 EOSINOPHILS ABSOLUTE COUNT (BEAKER) (test 0.14 K/ L 0.04-0.54 dezk=434) BASOPHILS ABSOLUTE COUNT (BEAKER) (test jqtt=510) 0.02 K/ L 0.01-0.08 IMMATURE GRANULOCYTES-RELATIVE PERCENT (BEAKER) 0 % 0-1 (test vtxr=7609) ALPHA FETOPROTEIN (AFP), TUMOR [id number] 14:39:00 Test Item Value Reference Range Comments ALPHA-FETOPROTEIN (BEAKER) (test kyhp=1692) < ng/mL <10.0 COMPREHENSIVE METABOLIC [id number] 14:00:00 Test Item Value Reference Range Comments TOTAL PROTEIN (BEAKER) 6.7 gm/dL 6.0-8.3 (test ixed=619) ALBUMIN (BEAKER) (test 3.1 g/dL 3.5-5.0 cjkf=9734) ALKALINE PHOSPHATASE 144 U/L 40-150 (BEAKER) (test kszk=289) BILIRUBIN TOTAL (BEAKER) 2.1 mg/dL 0.2-1.2 (test zwoo=001) SODIUM (BEAKER) (test 137 meq/L 136-145 mtvx=003) POTASSIUM (BEAKER) (test 3.8 meq/L 3.5-5.1 sxyg=452) CHLORIDE (BEAKER) (test 105 meq/L 98-107 wajd=140) CO2 (BEAKER) (test 26 meq/L 22-29 msde=864) BLOOD UREA NITROGEN 43 mg/dL 7-21 (BEAKER) (test posy=241) CREATININE (BEAKER) (test 1.57 mg/dL 0.57-1.25 yksk=822) GLUCOSE RANDOM (BEAKER) 222 mg/dL 70-105 (test xybb=319) CALCIUM (BEAKER) (test 8.9 mg/dL 8.4-10.2 hvhl=405) AST (SGOT) (BEAKER) (test 43 U/L 5-34 odzh=958) ALT (SGPT) (BEAKER) (test 27 U/L 6-55 jujt=552) EGFR (BEAKER) (test 44 mL/min/1.73 sq m ESTIMATED GFR IS NOT dpmt=5098) ACCURATE CREATININE CLEARANCE IN PREDICTING GLOMERULAR FILTRATION RATE. ESTIMATED GFR IS NOT APPLICABLE FOR DIALYSIS PATIENTS. BILIRUBIN, [id number] 14:00:00 Test Item Value Reference Range Comments BILIRUBIN DIRECT (BEAKER) (test jppz=852) 1.1 mg/dL 0.1-0.5 CBC W/PLT COUNT & AUTO [id number] 13:53:00 Test Item Value Reference Range Comments WHITE BLOOD CELL COUNT 5.2 K/ L 3.5-10.5 (BEAKER) (test ytmb=589) RED BLOOD CELL COUNT (BEAKER) 2.93 M/ L 4.63-6.08 (test uapu=044) HEMOGLOBIN (BEAKER) (test 9.3 GM/DL 13.7-17.5 vazw=649) HEMATOCRIT (BEAKER) (test 29.5 % 40.1-51.0 wlhg=527) MEAN CORPUSCULAR VOLUME 100.7 fL 79.0-92.2 (BEAKER) (test bffn=203) MEAN CORPUSCULAR HEMOGLOBIN 31.7 pg 25.7-32.2 (BEAKER) (test qrki=090) MEAN CORPUSCULAR HEMOGLOBIN 31.5 GM/DL 32.3-36.5 CONC (BEAKER) (test slaw=030) RED CELL DISTRIBUTION WIDTH 17.4 % 11.6-14.4 (BEAKER) (test asnt=572) PLATELET COUNT (BEAKER) (test 34 K/CU MM 150-450 vsdw=759) MEAN PLATELET VOLUME (BEAKER) fL 9.4-12.4 Unable to report due to (test nobl=655) abnormal Platelet population distribution. NUCLEATED RED BLOOD CELLS 0 /100 WBC 0-0 (BEAKER) (test yezn=620) NEUTROPHILS RELATIVE PERCENT 77 % (BEAKER) (test neyc=208) LYMPHOCYTES RELATIVE PERCENT 7 % (BEAKER) (test uyxn=397) MONOCYTES RELATIVE PERCENT 9 % (BEAKER) (test dbnn=629) EOSINOPHILS RELATIVE PERCENT 6 % (BEAKER) (test djjs=111) BASOPHILS RELATIVE PERCENT 0 % (BEAKER) (test dyyn=139) NEUTROPHILS ABSOLUTE COUNT 3.98 K/ L 1.78-5.38 (BEAKER) (test lzof=879) LYMPHOCYTES ABSOLUTE COUNT 0.38 K/ L 1.32-3.57 (BEAKER) (test whvs=897) MONOCYTES ABSOLUTE COUNT 0.46 K/ L 0.30-0.82 (BEAKER) (test tkbh=995) EOSINOPHILS ABSOLUTE COUNT 0.32 K/ L 0.04-0.54 (BEAKER) (test dyiy=450) BASOPHILS ABSOLUTE COUNT 0.01 K/ L 0.01-0.08 (BEAKER) (test rcvs=833) IMMATURE GRANULOCYTES-RELATIVE 0 % 0-1 PERCENT (BEAKER) (test rhav=1558) PROTHROMBIN [id number] 13:41:00 Test Item Value Reference Range Comments PROTIME (BEAKER) (test artc=134) 16.9 seconds 11.7-14.7 INR (BEAKER) (test vtol=656) 1.4 <=5.9 RECOMMENDED COUMADIN/WARFARIN INR THERAPY RANGESSTANDARD DOSE: 2.0 - 3.0 Includes: PROPHYLAXIS forvenous thrombosis, systemic embolization; TREATMENT for venous thrombosis and/or pulmonary embolus.HIGH RISK: Target INR is 2.5-3.5 for patients with mechanical heart valves.BLOOD [id number] 00:00:00 Test Item Value Reference Range Comments CULTURE (BEAKER) (test lpix=4352) No growth in 5 days BLOOD [id number] 00:00:00 Test Item Value Reference Range Comments CULTURE (BEAKER) (test gbje=7366) No growth in 5 days POCT-GLUCOSE [id number] 12:19:00 Test Item Value Reference Range Comments POC-GLUCOSE METER (BEAKER) 224 mg/dL 70-[address] [facility] [address] [facility] (test epge=4582) [facility] [address] POCT-GLUCOSE [id number] 08:04:00 Test Item Value Reference Range Comments POC-GLUCOSE METER (BEAKER) 112 mg/dL 70-110 TESTED AT [address] (test uudb=9354) [facility] [address] COMPREHENSIVE METABOLIC [id number] 06:19:00 Test Item Value Reference Range Comments TOTAL PROTEIN (BEAKER) 6.1 gm/dL 6.0-8.3 (test eibu=114) ALBUMIN (BEAKER) (test 2.9 g/dL 3.5-5.0 fgmg=1046) ALKALINE PHOSPHATASE 102 U/L 40-150 (BEAKER) (test ozrk=287) BILIRUBIN TOTAL (BEAKER) 1.7 mg/dL 0.2-1.2 (test juin=665) SODIUM (BEAKER) (test 139 meq/L 136-145 xciq=934) POTASSIUM (BEAKER) (test 3.7 meq/L 3.5-5.1 ceco=373) CHLORIDE (BEAKER) (test 107 meq/L 98-107 rbya=386) CO2 (BEAKER) (test 23 meq/L 22-29 snjo=682) BLOOD UREA NITROGEN 40 mg/dL 7-21 (BEAKER) (test czkn=321) CREATININE (BEAKER) (test 1.65 mg/dL 0.57-1.25 urtm=418) GLUCOSE RANDOM (BEAKER) 144 mg/dL 70-105 (test kjrr=151) CALCIUM (BEAKER) (test 9.0 mg/dL 8.4-10.2 xire=907) AST (SGOT) (BEAKER) (test 45 U/L 5-34 jqij=262) ALT (SGPT) (BEAKER) (test 22 U/L 6-55 lepo=255) EGFR (BEAKER) (test 42 mL/min/1.73 sq m ESTIMATED GFR IS NOT gbfj=7309) ACCURATE CREATININE CLEARANCE IN PREDICTING GLOMERULAR FILTRATION RATE. ESTIMATED GFR IS NOT APPLICABLE FOR DIALYSIS PATIENTS. CBC (HEMOGRAM ONLY)2018-03-11 05:48:00 Test Item Value Reference Range Comments WHITE BLOOD CELL COUNT (BEAKER) (test kmer=385) 2.9 K/ L 3.5-10.5 RED BLOOD CELL COUNT (BEAKER) (test ptai=751) 2.62 M/ L 4.63-6.08 HEMOGLOBIN (BEAKER) (test bvxy=822) 8.2 GM/DL 13.7-17.5 HEMATOCRIT (BEAKER) (test vlrr=593) 25.8 % 40.1-51.0 MEAN CORPUSCULAR VOLUME (BEAKER) (test bmvz=963) 98.5 fL 79.0-92.2 MEAN CORPUSCULAR HEMOGLOBIN (BEAKER) (test 31.3 pg 25.7-32.2 ntch=933) MEAN CORPUSCULAR HEMOGLOBIN CONC (BEAKER) (test 31.8 GM/DL 32.3-36.5 yjqg=744) RED CELL DISTRIBUTION WIDTH (BEAKER) (test 17.0 % 11.6-14.4 ynkm=099) PLATELET COUNT (BEAKER) (test zjmf=530) 43 K/CU MM 150-450 MEAN PLATELET VOLUME (BEAKER) (test affy=662) 13.2 fL 9.4-12.4 NUCLEATED RED BLOOD CELLS (BEAKER) (test 0 /100 WBC 0-0 ltgj=209) POCT-GLUCOSE [id number] 21:15:00 Test Item Value Reference Range Comments POC-GLUCOSE METER (BEAKER) 198 mg/dL 70-[address] [facility] [address] [facility] (test fzyi=2289) [facility] [address] URINALYSIS W/ REFLEX URINE [id number] 18:11:00 Test Item Value Reference Range Comments COLOR (BEAKER) (test qgcp=278) Light Yellow CLARITY (BEAKER) (test nlrk=243) Clear SPECIFIC GRAVITY UA (BEAKER) (test lpgo=524) 1.006 1.001-1.035 PH UA (BEAKER) (test fsoi=638) 5.5 5.0-8.0 PROTEIN UA (BEAKER) (test wzlz=062) Negative Negative GLUCOSE UA (BEAKER) (test xqol=308) Negative Negative KETONES UA (BEAKER) (test cslx=688) Negative Negative BILIRUBIN UA (BEAKER) (test flin=132) Negative Negative BLOOD UA (BEAKER) (test mwbc=820) Small Negative NITRITE UA (BEAKER) (test kvir=323) Negative Negative LEUKOCYTE ESTERASE UA (BEAKER) (test tugm=956) Negative Negative UROBILINOGEN UA (BEAKER) (test jbbq=776) 0.2 mg/dL 0.2-1.0 RBC UA (BEAKER) (test nqiv=152) 7 /HPF WBC UA (BEAKER) (test akzj=337) 0 /HPF HYALINE CASTS (BEAKER) (test gpoa=716) 4 /LPF SOURCE(BEAKER) (test obgj=7444) RAD, ANKLE, MIN 3 VIEWS, [id number] 14:45:00Reason for exam:->r ankle painFINAL REPORT HISTORY: [...] MDReport Verified Date/Time: 03/10/2018 14:45:04 Reading Location: [facility] C0W Consult Reading Room Electronicallysigned by: CELENA CLARK M.D. on 03/10/2018 02: 45 PMB-TYPE NATRIURETIC FACTOR (BNP)2018-03-10 12:49:00 Test Item Value Reference Range Comments B-TYPE NATRIURETIC PEPTIDE (BEAKER) (test 650 pg/mL 0-100 hcuy=852) [id number] 12:44:00 Test Item Value Reference Range Comments AMMONIA (BEAKER) (test pwlm=823) 30 mol/L 18-72 COMPREHENSIVE METABOLIC [id number] 12:42:00 Test Item Value Reference Range Comments TOTAL PROTEIN (BEAKER) 7.0 gm/dL 6.0-8.3 (test tmul=273) ALBUMIN (BEAKER) (test 3.1 g/dL 3.5-5.0 gkoy=2406) ALKALINE PHOSPHATASE 131 U/L 40-150 (BEAKER) (test iffp=761) BILIRUBIN TOTAL (BEAKER) 1.9 mg/dL 0.2-1.2 (test lqpp=631) SODIUM (BEAKER) (test 138 meq/L 136-145 ogrj=800) POTASSIUM (BEAKER) (test 3.7 meq/L 3.5-5.1 zuen=727) CHLORIDE (BEAKER) (test 105 meq/L 98-107 lxsa=703) CO2 (BEAKER) (test 25 meq/L 22-29 bjto=580) BLOOD UREA NITROGEN 42 mg/dL 7-21 (BEAKER) (test vtwh=526) CREATININE (BEAKER) (test 1.82 mg/dL 0.57-1.25 wwug=526) GLUCOSE RANDOM (BEAKER) 211 mg/dL 70-105 (test pqys=895) CALCIUM (BEAKER) (test 8.8 mg/dL 8.4-10.2 ltns=801) AST (SGOT) (BEAKER) (test 49 U/L 5-34 nhol=215) ALT (SGPT) (BEAKER) (test 30 U/L 6-55 mafg=864) EGFR (BEAKER) (test 37 mL/min/1.73 sq m ESTIMATED GFR IS NOT vsxc=8616) ACCURATE CREATININE CLEARANCE IN PREDICTING GLOMERULAR FILTRATION RATE. ESTIMATED GFR IS NOT APPLICABLE FOR DIALYSIS PATIENTS. [id number] 12:27:00 Test Item Value Reference Range Comments PROTIME (BEAKER) (test knys=823) 17.4 seconds 11.7-14.7 INR (BEAKER) (test bdtd=051) 1.4 <=5.9 PARTIAL THROMBOPLASTIN TIME (BEAKER) (test 33.1 seconds 22.5-36.0 wlzb=096) RECOMMENDED COUMADIN/WARFARIN INR THERAPY RANGESSTANDARD DOSE: 2.0 - 3.0 Includes: PROPHYLAXIS forvenous thrombosis, systemic embolization; TREATMENT for venous thrombosis and/or pulmonary embolus.HIGH RISK: Target INR is 2.5-3.5 for patients with mechanical heart valves.CBC W/PLT COUNT & AUTO [id number] 12:19:00 Test Item Value Reference Range Comments WHITE BLOOD CELL COUNT (BEAKER) (test ntht=939) 4.9 K/ L 3.5-10.5 RED BLOOD CELL COUNT (BEAKER) (test mbjw=657) 2.90 M/ L 4.63-6.08 HEMOGLOBIN (BEAKER) (test tzlr=451) 9.0 GM/DL 13.7-17.5 HEMATOCRIT (BEAKER) (test hved=196) 28.5 % 40.1-51.0 MEAN CORPUSCULAR VOLUME (BEAKER) (test yvhh=910) 98.3 fL 79.0-92.2 MEAN CORPUSCULAR HEMOGLOBIN (BEAKER) (test 31.0 pg 25.7-32.2 sron=167) MEAN CORPUSCULAR HEMOGLOBIN CONC (BEAKER) (test 31.6 GM/DL 32.3-36.5 qlai=277) RED CELL DISTRIBUTION WIDTH (BEAKER) (test 17.2 % 11.6-14.4 hoqk=658) PLATELET COUNT (BEAKER) (test txaz=530) 53 K/CU MM 150-450 MEAN PLATELET VOLUME (BEAKER) (test wbuk=173) 12.5 fL 9.4-12.4 NUCLEATED RED BLOOD CELLS (BEAKER) (test 0 /100 WBC 0-0 dscq=808) NEUTROPHILS RELATIVE PERCENT (BEAKER) (test 73 % cqdw=362) LYMPHOCYTES RELATIVE PERCENT (BEAKER) (test 12 % vumo=937) MONOCYTES RELATIVE PERCENT (BEAKER) (test 9 % efvg=188) EOSINOPHILS RELATIVE PERCENT (BEAKER) (test 6 % snsx=056) BASOPHILS RELATIVE PERCENT (BEAKER) (test 0 % iodk=779) NEUTROPHILS ABSOLUTE COUNT (BEAKER) (test 3.58 K/ L 1.78-5.38 jyws=340) LYMPHOCYTES ABSOLUTE COUNT (BEAKER) (test 0.58 K/ L 1.32-3.57 upom=782) MONOCYTES ABSOLUTE COUNT (BEAKER) (test ujtz=435) 0.42 K/ L 0.30-0.82 EOSINOPHILS ABSOLUTE COUNT (BEAKER) (test 0.28 K/ L 0.04-0.54 gnby=570) BASOPHILS ABSOLUTE COUNT (BEAKER) (test txhr=175) 0.02 K/ L 0.01-0.08 IMMATURE GRANULOCYTES-RELATIVE PERCENT (BEAKER) 0 % 0-1 (test wrtn=7825) BLOOD [id number] 18:00:00 Test Item Value Reference Range Comments CULTURE (BEAKER) (test kjma=6830) No growth in 5 days BLOOD [id number] 18:00:00 Test Item Value Reference Range Comments CULTURE (BEAKER) (test alet=0619) No growth in 5 days POCT-GLUCOSE [id number] 12:29:00 Test Item Value Reference Range Comments POC-GLUCOSE METER (BEAKER) 207 mg/dL 70-110 TESTED AT [address] (test pnwo=5124) [place] [id number] POCT-GLUCOSE [id number] 08:01:00 Test Item Value Reference Range Comments POC-GLUCOSE METER (BEAKER) 150 mg/dL 70-110 TESTED AT [address] (test eagi=1906) [place] [id number] ALPHA FETOPROTEIN (AFP), TUMOR [id number] 07:22:00 Test Item Value Reference Range Comments ALPHA-FETOPROTEIN (BEAKER) (test qpjm=0508) < ng/mL <10.0 [id number] 06:49:00 Test Item Value Reference Range Comments MAGNESIUM (BEAKER) (test cytj=915) 1.7 mg/dL 1.6-2.6 BASIC METABOLIC [id number] 06:49:00 Test Item Value Reference Range Comments SODIUM (BEAKER) (test 134 meq/L 136-145 eduv=933) POTASSIUM (BEAKER) (test 4.1 meq/L 3.5-5.1 ivud=741) CHLORIDE (BEAKER) (test 104 meq/L 98-107 azqp=155) CO2 (BEAKER) (test 24 meq/L 22-29 kaco=526) BLOOD UREA NITROGEN 32 mg/dL 7-21 (BEAKER) (test pmct=734) CREATININE (BEAKER) (test 1.42 mg/dL 0.57-1.25 kvic=271) GLUCOSE RANDOM (BEAKER) 138 mg/dL 70-105 (test bmgi=395) CALCIUM (BEAKER) (test 8.3 mg/dL 8.4-10.2 cetk=330) EGFR (BEAKER) (test 50 mL/min/1.73 sq m ESTIMATED GFR IS NOT ytxr=4160) ACCURATE CREATININE CLEARANCE IN PREDICTING GLOMERULAR FILTRATION RATE. ESTIMATED GFR IS NOT APPLICABLE FOR DIALYSIS PATIENTS. HEPATIC FUNCTION [id number] 06:49:00 Test Item Value Reference Range Comments TOTAL PROTEIN (BEAKER) (test vuhs=429) 6.0 gm/dL 6.0-8.3 ALBUMIN (BEAKER) (test tyqi=5933) 2.7 g/dL 3.5-5.0 BILIRUBIN TOTAL (BEAKER) (test jytp=979) 1.9 mg/dL 0.2-1.2 BILIRUBIN DIRECT (BEAKER) (test ixee=404) 0.9 mg/dL 0.1-0.5 ALKALINE PHOSPHATASE (BEAKER) (test dmgy=700) 104 U/L 40-150 AST (SGOT) (BEAKER) (test bywy=097) 35 U/L 5-34 ALT (SGPT) (BEAKER) (test kkgn=616) 22 U/L 6-55 PROTHROMBIN [id number] 06:31:00 Test Item Value Reference Range Comments PROTIME (BEAKER) (test aokb=473) 17.6 seconds 11.7-14.7 INR (BEAKER) (test wzpv=347) 1.5 <=5.9 RECOMMENDED COUMADIN/WARFARIN INR THERAPY RANGESSTANDARD DOSE: 2.0 - 3.0 Includes: PROPHYLAXIS forvenous thrombosis, systemic embolization; TREATMENT for venous thrombosis and/or pulmonary embolus.HIGH RISK: Target INR is 2.5-3.5 for patients with mechanical heart valves.CBC W/PLT COUNT & AUTO [id number] 06:23:00 Test Item Value Reference Range Comments WHITE BLOOD CELL COUNT (BEAKER) (test wkbg=550) 4.1 K/ L 3.5-10.5 RED BLOOD CELL COUNT (BEAKER) (test nfks=513) 2.55 M/ L 4.63-6.08 HEMOGLOBIN (BEAKER) (test esld=249) 7.9 GM/DL 13.7-17.5 HEMATOCRIT (BEAKER) (test acko=289) 25.0 % 40.1-51.0 MEAN CORPUSCULAR VOLUME (BEAKER) (test fvko=451) 98.0 fL 79.0-92.2 MEAN CORPUSCULAR HEMOGLOBIN (BEAKER) (test 31.0 pg 25.7-32.2 lmte=923) MEAN CORPUSCULAR HEMOGLOBIN CONC (BEAKER) (test 31.6 GM/DL 32.3-36.5 dckn=418) RED CELL DISTRIBUTION WIDTH (BEAKER) (test 16.8 % 11.6-14.4 grca=294) PLATELET COUNT (BEAKER) (test mlbg=017) 43 K/CU MM 150-450 MEAN PLATELET VOLUME (BEAKER) (test njwk=673) 10.8 fL 9.4-12.4 NUCLEATED RED BLOOD CELLS (BEAKER) (test 0 /100 WBC 0-0 spet=612) NEUTROPHILS RELATIVE PERCENT (BEAKER) (test 71 % vvwx=712) LYMPHOCYTES RELATIVE PERCENT (BEAKER) (test 12 % reva=423) MONOCYTES RELATIVE PERCENT (BEAKER) (test 9 % wzqi=126) EOSINOPHILS RELATIVE PERCENT (BEAKER) (test 8 % xrnn=427) BASOPHILS RELATIVE PERCENT (BEAKER) (test 0 % gons=721) NEUTROPHILS ABSOLUTE COUNT (BEAKER) (test 2.90 K/ L 1.78-5.38 ynpf=759) LYMPHOCYTES ABSOLUTE COUNT (BEAKER) (test 0.47 K/ L 1.32-3.57 zohd=749) MONOCYTES ABSOLUTE COUNT (BEAKER) (test jtrs=093) 0.35 K/ L 0.30-0.82 EOSINOPHILS ABSOLUTE COUNT (BEAKER) (test 0.33 K/ L 0.04-0.54 izjy=923) BASOPHILS ABSOLUTE COUNT (BEAKER) (test gghe=724) 0.01 K/ L 0.01-0.08 IMMATURE GRANULOCYTES-RELATIVE PERCENT (BEAKER) 0 % 0-1 (test hauj=3694) POCT-GLUCOSE [id number] 21:17:00 Test Item Value Reference Range Comments POC-GLUCOSE METER (BEAKER) 219 mg/dL 70-[address] [facility] [address] [facility] (test pbuh=3320) [facility] [address] POCT-GLUCOSE [id number] 17:24:00 Test Item Value Reference Range Comments POC-GLUCOSE METER (BEAKER) 279 mg/dL 70-110 TESTED AT [address] (test gclj=3535) [place] [address] U/S, ABDOMINAL, [id number] 17:11:00Diagnostic paracentesis to r/o bacterial peritonitis.Reason for exam:->ascites; rule out sbpFINAL REPORT Limited abdominal ultrasound Clinical History: Ascites, rule outSBP Technique: Limited abdominal ultrasound is performed in all four quadrants to assess for presence of ascites in anticipation of paracentesis. No significant ascites identified. Impression: No significant ascites. Paracentesis was not performed. Signed: Ralph Larose MDReport Verified Date/Time : 02/20/2018 17:11:22 Reading Location: [facility] [id number] Ultrasound Reading Room [id number] 15:07:00 Test Item Value Reference Range Comments PREALBUMIN (BEAKER) (test wnnk=234) 9 mg/dL 14-45 Listed for OLT - Nutrition Surveillance ([facility] Hepatology Transplant Team)POCT- GLUCOSE [id number] 12:03:00 Test Item Value Reference Range Comments POC-GLUCOSE METER (BEAKER) 215 mg/dL 70-110 TESTED AT [address] (test ydoq=6597) [place] [address] POCT-GLUCOSE [id number] 10:58:00 Test Item Value Reference Range Comments POC-GLUCOSE METER (BEAKER) 231 mg/dL 70-110 TESTED AT [address] (test jmjy=5937) [place] [address] [id number] 03:38:00 Test Item Value Reference Range Comments MAGNESIUM (BEAKER) (test hhrv=070) 1.9 mg/dL 1.6-2.6 BASIC METABOLIC [id number] 03:38:00 Test Item Value Reference Range Comments SODIUM (BEAKER) (test 133 meq/L 136-145 sexj=272) POTASSIUM (BEAKER) (test 3.5 meq/L 3.5-5.1 sese=830) CHLORIDE (BEAKER) (test 102 meq/L 98-107 evfv=413) CO2 (BEAKER) (test 21 meq/L 22-29 qycn=385) BLOOD UREA NITROGEN 34 mg/dL 7-21 (BEAKER) (test ltgg=115) CREATININE (BEAKER) (test 1.31 mg/dL 0.57-1.25 nnuy=745) GLUCOSE RANDOM (BEAKER) 249 mg/dL 70-105 (test viyi=366) CALCIUM (BEAKER) (test 8.7 mg/dL 8.4-10.2 flzd=613) EGFR (BEAKER) (test 54 mL/min/1.73 sq m ESTIMATED GFR IS NOT nhrt=9522) ACCURATE CREATININE CLEARANCE IN PREDICTING GLOMERULAR FILTRATION RATE. ESTIMATED GFR IS NOT APPLICABLE FOR DIALYSIS PATIENTS. HEPATIC FUNCTION [id number] 03:38:00 Test Item Value Reference Range Comments TOTAL PROTEIN (BEAKER) (test eucc=725) 6.2 gm/dL 6.0-8.3 ALBUMIN (BEAKER) (test kgzn=2214) 2.6 g/dL 3.5-5.0 BILIRUBIN TOTAL (BEAKER) (test weje=628) 1.8 mg/dL 0.2-1.2 BILIRUBIN DIRECT (BEAKER) (test fhnb=262) 0.9 mg/dL 0.1-0.5 ALKALINE PHOSPHATASE (BEAKER) (test rjmm=746) 98 U/L 40-150 AST (SGOT) (BEAKER) (test bfhu=115) 37 U/L 5-34 ALT (SGPT) (BEAKER) (test moda=338) 21 U/L 6-55 PROTHROMBIN [id number] 03:21:00 Test Item Value Reference Range Comments PROTIME (BEAKER) (test ywjr=779) 17.1 seconds 11.7-14.7 INR (BEAKER) (test xwlv=303) 1.4 <=5.9 RECOMMENDED COUMADIN/WARFARIN INR THERAPY RANGESSTANDARD DOSE: 2.0 - 3.0 Includes: PROPHYLAXIS forvenous thrombosis, systemic embolization; TREATMENT for venous thrombosis and/or pulmonary embolus.HIGH RISK: Target INR is 2.5-3.5 for patients with mechanical heart valves.CBC W/PLT COUNT & AUTO [id number] 03:03:00 Test Item Value Reference Range Comments WHITE BLOOD CELL COUNT (BEAKER) (test ufad=801) 4.0 K/ L 3.5-10.5 RED BLOOD CELL COUNT (BEAKER) (test dqnb=107) 2.68 M/ L 4.63-6.08 HEMOGLOBIN (BEAKER) (test kihr=347) 8.3 GM/DL 13.7-17.5 HEMATOCRIT (BEAKER) (test zkgf=760) 27.1 % 40.1-51.0 MEAN CORPUSCULAR VOLUME (BEAKER) (test ybam=478) 101.1 fL 79.0-92.2 MEAN CORPUSCULAR HEMOGLOBIN (BEAKER) (test 31.0 pg 25.7-32.2 dxsr=791) MEAN CORPUSCULAR HEMOGLOBIN CONC (BEAKER) (test 30.6 GM/DL 32.3-36.5 lccn=179) RED CELL DISTRIBUTION WIDTH (BEAKER) (test 17.2 % 11.6-14.4 hzpg=507) PLATELET COUNT (BEAKER) (test ebvx=414) 40 K/CU MM 150-450 MEAN PLATELET VOLUME (BEAKER) (test ypmr=442) 11.8 fL 9.4-12.4 NUCLEATED RED BLOOD CELLS (BEAKER) (test 0 /100 WBC 0-0 ncvp=415) NEUTROPHILS RELATIVE PERCENT (BEAKER) (test 72 % gubs=184) LYMPHOCYTES RELATIVE PERCENT (BEAKER) (test 13 % uunm=660) MONOCYTES RELATIVE PERCENT (BEAKER) (test 9 % dbjo=964) EOSINOPHILS RELATIVE PERCENT (BEAKER) (test 6 % fdsb=899) BASOPHILS RELATIVE PERCENT (BEAKER) (test 1 % okca=936) NEUTROPHILS ABSOLUTE COUNT (BEAKER) (test 2.89 K/ L 1.78-5.38 trse=478) LYMPHOCYTES ABSOLUTE COUNT (BEAKER) (test 0.50 K/ L 1.32-3.57 abnz=173) MONOCYTES ABSOLUTE COUNT (BEAKER) (test wypm=950) 0.35 K/ L 0.30-0.82 EOSINOPHILS ABSOLUTE COUNT (BEAKER) (test 0.24 K/ L 0.04-0.54 jvsk=389) BASOPHILS ABSOLUTE COUNT (BEAKER) (test qpzy=089) 0.02 K/ L 0.01-0.08 IMMATURE GRANULOCYTES-RELATIVE PERCENT (BEAKER) 0 % 0-1 (test yenz=5951) POCT-GLUCOSE [id number] 01:30:00 Test Item Value Reference Range Comments POC-GLUCOSE METER (BEAKER) 261 mg/dL 70-[address] [facility] [address] (test nscz=4893) [facility] [address] URINALYSIS W/ [id number] 22:14:00 Test Item Value Reference Range Comments COLOR (BEAKER) (test bcxt=235) Light Yellow CLARITY (BEAKER) (test kekl=175) Clear SPECIFIC GRAVITY UA (BEAKER) (test bzvc=890) 1.005 1.001-1.035 PH UA (BEAKER) (test zebp=697) 5.0 5.0-8.0 PROTEIN UA (BEAKER) (test jcap=930) Negative Negative GLUCOSE UA (BEAKER) (test nhpx=561) Negative Negative KETONES UA (BEAKER) (test zjfg=485) Negative Negative BILIRUBIN UA (BEAKER) (test cgzg=307) Negative Negative BLOOD UA (BEAKER) (test towu=229) Small Negative NITRITE UA (BEAKER) (test hokz=549) Negative Negative LEUKOCYTE ESTERASE UA (BEAKER) (test pfxn=456) Negative Negative UROBILINOGEN UA (BEAKER) (test wylh=403) 0.2 mg/dL 0.2-1.0 RBC UA (BEAKER) (test mlsc=746) 3 /HPF WBC UA (BEAKER) (test apyu=196) < /HPF BACTERIA (BEAKER) (test cxxp=996) Rare MUCUS (BEAKER) (test bgyf=4354) Rare HYALINE CASTS (BEAKER) (test bnrj=516) 1 /LPF SOURCE(BEAKER) (test kxts=8109) CT, BRAIN, WITHOUT [id number] 21:49:00Reason for exam:->EMESISReason for exam:->ALTERED MENTAL STATUSWhat [...] 21: 49:02 RAD, CHEST, 1 VIEW, NON [id number] 21:45:00Reason for exam:-> EMESISReason for exam:->ALTERED MENTAL STATUSShould [facility] be [facility]?->YesFINAL REPORT INDICATION: EMESISALTERED MENTAL STATUS COMPARISON: 06/19/17 TECHNIQUE: Single frontal view of the chest. FINDINGS: Lungs and pleura: Clear lungs. No effusion.Heart and mediastinum: Normal heart size. Stable valvular surgical changes.Osseous structures: No acute abnormality.Other: None. IMPRESSION: No acute intrathoracic abnormality. Signed: JR Wong Robert MDReport Verified Date/Time: 02/19/2018 21:45:47 Reading Location: [address] Body Reading Room [id number] 21:16:00 Test Item Value Reference Range Comments PROTIME (BEAKER) (test rolj=653) 16.7 seconds 11.7-14.7 INR (BEAKER) (test elvg=287) 1.4 <=5.9 PARTIAL THROMBOPLASTIN TIME (BEAKER) (test 34.2 seconds 22.5-36.0 twox=225) RECOMMENDED COUMADIN/WARFARIN INR THERAPY RANGESSTANDARD DOSE: 2.0 - 3.0 Includes: PROPHYLAXIS forvenous thrombosis, systemic embolization; TREATMENT for venous thrombosis and/or pulmonary embolus.HIGH RISK: Target INR is 2.5-3.5 for patients with mechanical heart valves.[id number] 21:16:00 Test Item Value Reference Range Comments AMMONIA (BEAKER) (test 32 mol/L 18-72 Specimen slightly hemolyzed xiqv=939) [id number] 21:08:00 Test Item Value Reference Range Comments LIPASE (BEAKER) (test mkkk=979) 180 U/L 8-78 [id number] 21:08:00 Test Item Value Reference Range Comments AMYLASE (BEAKER) (test cltv=476) 20 U/L 25-125 Specimen slightly hemolyzed BASIC METABOLIC [id number] 21:08:00 Test Item Value Reference Range Comments SODIUM (BEAKER) (test 135 meq/L 136-145 urkk=720) POTASSIUM (BEAKER) (test 4.0 meq/L 3.5-5.1 Specimen slightly bqju=498) hemolyzed CHLORIDE (BEAKER) (test 103 meq/L 98-107 ywxu=400) CO2 (BEAKER) (test 24 meq/L 22-29 nokn=992) BLOOD UREA NITROGEN 36 mg/dL 7-21 (BEAKER) (test ygzk=600) CREATININE (BEAKER) (test 1.41 mg/dL 0.57-1.25 Specimen slightly zvld=772) hemolyzed GLUCOSE RANDOM (BEAKER) 253 mg/dL 70-105 (test kqwd=002) CALCIUM (BEAKER) (test 9.0 mg/dL 8.4-10.2 fanm=048) EGFR (BEAKER) (test 50 mL/min/1.73 sq m ESTIMATED GFR IS NOT mjas=3779) ACCURATE CREATININE CLEARANCE IN PREDICTING GLOMERULAR FILTRATION RATE. ESTIMATED GFR IS NOT APPLICABLE FOR DIALYSIS PATIENTS. HEPATIC FUNCTION [id number] 21:08:00 Test Item Value Reference Range Comments TOTAL PROTEIN (BEAKER) (test 6.6 gm/dL 6.0-8.3 Specimen slightly hemolyzed ocyp=068) ALBUMIN (BEAKER) (test 2.8 g/dL 3.5-5.0 Specimen slightly hemolyzed ncde=2344) BILIRUBIN TOTAL (BEAKER) (test 1.7 mg/dL 0.2-1.2 Specimen slightly hemolyzed yhzu=879) BILIRUBIN DIRECT (BEAKER) (test 0.8 mg/dL 0.1-0.5 Specimen slightly hemolyzed krfo=306) ALKALINE PHOSPHATASE (BEAKER) 106 U/L 40-150 (test hepa=815) AST (SGOT) (BEAKER) (test 46 U/L 5-34 Specimen slightly hemolyzed mdxi=346) ALT (SGPT) (BEAKER) (test 27 U/L 6-55 Specimen slightly hemolyzed cbqm=474) CBC W/PLT COUNT & AUTO [id number] 20:50:00 Test Item Value Reference Range Comments WHITE BLOOD CELL COUNT (BEAKER) (test ncxc=653) 5.4 K/ L 3.5-10.5 RED BLOOD CELL COUNT (BEAKER) (test lgtp=615) 2.83 M/ L 4.63-6.08 HEMOGLOBIN (BEAKER) (test hyou=823) 8.8 GM/DL 13.7-17.5 HEMATOCRIT (BEAKER) (test zndd=050) 28.3 % 40.1-51.0 MEAN CORPUSCULAR VOLUME (BEAKER) (test mjje=681) 100.0 fL 79.0-92.2 MEAN CORPUSCULAR HEMOGLOBIN (BEAKER) (test 31.1 pg 25.7-32.2 prkd=340) MEAN CORPUSCULAR HEMOGLOBIN CONC (BEAKER) (test 31.1 GM/DL 32.3-36.5 bseo=698) RED CELL DISTRIBUTION WIDTH (BEAKER) (test 17.1 % 11.6-14.4 niio=380) PLATELET COUNT (BEAKER) (test ephp=363) 57 K/CU MM 150-450 MEAN PLATELET VOLUME (BEAKER) (test yrzu=681) 13.8 fL 9.4-12.4 NUCLEATED RED BLOOD CELLS (BEAKER) (test 0 /100 WBC 0-0 bbje=451) NEUTROPHILS RELATIVE PERCENT (BEAKER) (test 77 % zduq=725) LYMPHOCYTES RELATIVE PERCENT (BEAKER) (test 9 % uyyg=947) MONOCYTES RELATIVE PERCENT (BEAKER) (test 9 % iujg=549) EOSINOPHILS RELATIVE PERCENT (BEAKER) (test 5 % oklw=851) BASOPHILS RELATIVE PERCENT (BEAKER) (test 0 % cewi=997) NEUTROPHILS ABSOLUTE COUNT (BEAKER) (test 4.16 K/ L 1.78-5.38 ceta=784) LYMPHOCYTES ABSOLUTE COUNT (BEAKER) (test 0.46 K/ L 1.32-3.57 wtgm=903) MONOCYTES ABSOLUTE COUNT (BEAKER) (test lllt=994) 0.48 K/ L 0.30-0.82 EOSINOPHILS ABSOLUTE COUNT (BEAKER) (test 0.29 K/ L 0.04-0.54 racr=258) BASOPHILS ABSOLUTE COUNT (BEAKER) (test fqle=018) 0.01 K/ L 0.01-0.08 IMMATURE GRANULOCYTES-RELATIVE PERCENT (BEAKER) 0 % 0-1 (test bozx=0758) U/S, ABDOMINAL, WITH [id number] 12:44:00With doppler With doppler Reason for Exam:->cirrhosis, [...] Verified Date/Time: 01/07/2018 12 :44:58 Reading Location: [address] Radiology Reading Room POCT- GLUCOSE [id number] 10:12:00 Test Item Value Reference Range Comments POC-GLUCOSE METER (BEAKER) 184 mg/dL 70-[address] [facility] [address] [facility] (test fcgs=6833) [facility] [address] ALPHA FETOPROTEIN (AFP), TUMOR [id number] 15:21:00 Test Item Value Reference Range Comments ALPHA-FETOPROTEIN (BEAKER) (test ctlm=3329) < ng/mL <10.0 COMPREHENSIVE METABOLIC [id number] 14:46:00 Test Item Value Reference Range Comments TOTAL PROTEIN (BEAKER) 7.2 gm/dL 6.0-8.3 (test uvjr=608) ALBUMIN (BEAKER) (test 3.2 g/dL 3.5-5.0 avol=4350) ALKALINE PHOSPHATASE 128 U/L 40-150 (BEAKER) (test svhr=767) BILIRUBIN TOTAL (BEAKER) 1.5 mg/dL 0.2-1.2 (test jxeh=131) SODIUM (BEAKER) (test 135 meq/L 136-145 wwqp=840) POTASSIUM (BEAKER) (test 4.1 meq/L 3.5-5.1 pvtw=029) CHLORIDE (BEAKER) (test 103 meq/L 98-107 gspp=669) CO2 (BEAKER) (test 24 meq/L 22-29 vlkh=208) BLOOD UREA NITROGEN 55 mg/dL 7-21 (BEAKER) (test zldw=671) CREATININE (BEAKER) (test 1.45 mg/dL 0.57-1.25 ziev=706) GLUCOSE RANDOM (BEAKER) 148 mg/dL 70-105 (test ozwt=200) CALCIUM (BEAKER) (test 8.9 mg/dL 8.4-10.2 mlxr=073) AST (SGOT) (BEAKER) (test 46 U/L 5-34 rggg=202) ALT (SGPT) (BEAKER) (test 26 U/L 6-55 ddyq=655) EGFR (BEAKER) (test 48 mL/min/1.73 sq m ESTIMATED GFR IS NOT ukta=2341) ACCURATE CREATININE CLEARANCE IN PREDICTING GLOMERULAR FILTRATION RATE. ESTIMATED GFR IS NOT APPLICABLE FOR DIALYSIS PATIENTS. BILIRUBIN, [id number] 14:46:00 Test Item Value Reference Range Comments BILIRUBIN DIRECT (BEAKER) (test vgfj=465) 0.8 mg/dL 0.1-0.5 CBC W/PLT COUNT & AUTO [id number] 14:35:00 Test Item Value Reference Range Comments WHITE BLOOD CELL COUNT (BEAKER) (test lyav=925) 5.8 K/ L 3.5-10.5 RED BLOOD CELL COUNT (BEAKER) (test jpev=439) 2.95 M/ L 4.63-6.08 HEMOGLOBIN (BEAKER) (test bnfe=349) 9.3 GM/DL 13.7-17.5 HEMATOCRIT (BEAKER) (test ujfd=051) 28.9 % 40.1-51.0 MEAN CORPUSCULAR VOLUME (BEAKER) (test sglo=599) 98.0 fL 79.0-92.2 MEAN CORPUSCULAR HEMOGLOBIN (BEAKER) (test 31.5 pg 25.7-32.2 frkv=701) MEAN CORPUSCULAR HEMOGLOBIN CONC (BEAKER) (test 32.2 GM/DL 32.3-36.5 dans=734) RED CELL DISTRIBUTION WIDTH (BEAKER) (test 14.5 % 11.6-14.4 vhab=733) PLATELET COUNT (BEAKER) (test mnzq=163) 51 K/CU MM 150-450 MEAN PLATELET VOLUME (BEAKER) (test zdyp=683) 12.8 fL 9.4-12.4 NUCLEATED RED BLOOD CELLS (BEAKER) (test 0 /100 WBC 0-0 kosn=921) NEUTROPHILS RELATIVE PERCENT (BEAKER) (test 72 % djwh=719) LYMPHOCYTES RELATIVE PERCENT (BEAKER) (test 9 % tksk=938) MONOCYTES RELATIVE PERCENT (BEAKER) (test 10 % vfik=235) EOSINOPHILS RELATIVE PERCENT (BEAKER) (test 8 % djpr=210) BASOPHILS RELATIVE PERCENT (BEAKER) (test 0 % pcfr=555) NEUTROPHILS ABSOLUTE COUNT (BEAKER) (test 4.22 K/ L 1.78-5.38 mpdj=602) LYMPHOCYTES ABSOLUTE COUNT (BEAKER) (test 0.54 K/ L 1.32-3.57 geuw=867) MONOCYTES ABSOLUTE COUNT (BEAKER) (test aunu=051) 0.59 K/ L 0.30-0.82 EOSINOPHILS ABSOLUTE COUNT (BEAKER) (test 0.45 K/ L 0.04-0.54 xcdi=389) BASOPHILS ABSOLUTE COUNT (BEAKER) (test lugi=553) 0.02 K/ L 0.01-0.08 IMMATURE GRANULOCYTES-RELATIVE PERCENT (BEAKER) 0 % 0-1 (test dhis=5664) PROTHROMBIN [id number] 14:27:00 Test Item Value Reference Range Comments PROTIME (BEAKER) (test sbnd=703) 16.9 seconds 11.7-14.7 INR (BEAKER) (test qebj=133) 1.4 <=5.9 RECOMMENDED COUMADIN/WARFARIN INR THERAPY RANGESSTANDARD DOSE: 2.0 - 3.0 Includes: PROPHYLAXIS forvenous thrombosis, systemic embolization; TREATMENT for venous thrombosis and/or pulmonary embolus.HIGH RISK: Target INR is 2.5-3.5 for patients with mechanical heart valves.U/S, ABDOMINAL, WITH [id number] 17:20:00With doppler With dopplwe Reason for [...] Jaffe Verified Date/Time: 07/09/2017 17:20:26 Reading Location: [address] Radiology Reading Room COMPREHENSIVE METABOLIC [id number] 11: 35:00 Test Item Value Reference Range Comments TOTAL PROTEIN (BEAKER) 6.9 gm/dL 6.0-8.3 (test spcl=151) ALBUMIN (BEAKER) (test 3.0 g/dL 3.5-5.0 ajcb=4235) ALKALINE PHOSPHATASE 147 U/L 40-150 (BEAKER) (test elva=145) BILIRUBIN TOTAL (BEAKER) 1.4 mg/dL 0.2-1.2 (test savd=310) SODIUM (BEAKER) (test 136 meq/L 136-145 dszf=814) POTASSIUM (BEAKER) (test 4.1 meq/L 3.5-5.1 zckg=634) CHLORIDE (BEAKER) (test 106 meq/L 98-107 gedj=820) CO2 (BEAKER) (test 20 meq/L 22-29 fwkl=192) BLOOD UREA NITROGEN 37 mg/dL 7-21 (BEAKER) (test zliz=794) CREATININE (BEAKER) (test 1.80 mg/dL 0.57-1.25 koec=640) GLUCOSE RANDOM (BEAKER) 215 mg/dL 70-105 (test wzvj=422) CALCIUM (BEAKER) (test 8.4 mg/dL 8.4-10.2 mcqe=304) AST (SGOT) (BEAKER) (test 38 U/L 5-34 pgdg=467) ALT (SGPT) (BEAKER) (test 23 U/L 6-55 iawi=310) EGFR (BEAKER) (test 38 mL/min/1.73 sq m ESTIMATED GFR IS NOT idfa=2223) ACCURATE CREATININE CLEARANCE IN PREDICTING GLOMERULAR FILTRATION RATE. ESTIMATED GFR IS NOT APPLICABLE FOR DIALYSIS PATIENTS. BILIRUBIN, [id number] 11:35:00 Test Item Value Reference Range Comments BILIRUBIN DIRECT (BEAKER) (test kkls=506) 0.7 mg/dL 0.1-0.5 PROTHROMBIN [id number] 11:16:00 Test Item Value Reference Range Comments PROTIME (BEAKER) (test gohd=087) 16.8 seconds 11.7-14.7 INR (BEAKER) (test tjpt=076) 1.4 <=5.9 RECOMMENDED COUMADIN/WARFARIN INR THERAPY RANGESSTANDARD DOSE: 2.0 - 3.0 Includes: PROPHYLAXIS forvenous thrombosis, systemic embolization; TREATMENT for venous thrombosis and/or pulmonary embolus.HIGH RISK: Target INR is 2.5-3.5 for patients with mechanical heart valves.CBC W/PLT COUNT & AUTO [id number] 11:09:00 Test Item Value Reference Range Comments WHITE BLOOD CELL COUNT (BEAKER) (test cfkn=601) 5.4 K/ L 3.5-10.5 RED BLOOD CELL COUNT (BEAKER) (test dbpx=556) 2.88 M/ L 4.63-6.08 HEMOGLOBIN (BEAKER) (test jknr=712) 9.3 GM/DL 13.7-17.5 HEMATOCRIT (BEAKER) (test ituk=778) 28.6 % 40.1-51.0 MEAN CORPUSCULAR VOLUME (BEAKER) (test jqek=617) 99.3 fL 79.0-92.2 MEAN CORPUSCULAR HEMOGLOBIN (BEAKER) (test 32.3 pg 25.7-32.2 mqgm=906) MEAN CORPUSCULAR HEMOGLOBIN CONC (BEAKER) (test 32.5 GM/DL 32.3-36.5 fxxz=530) RED CELL DISTRIBUTION WIDTH (BEAKER) (test 14.6 % 11.6-14.4 ctlo=177) PLATELET COUNT (BEAKER) (test xzdo=374) 48 K/CU MM 150-450 MEAN PLATELET VOLUME (BEAKER) (test ypig=819) 11.2 fL 9.4-12.4 NUCLEATED RED BLOOD CELLS (BEAKER) (test 0 /100 WBC 0-0 tobv=607) NEUTROPHILS RELATIVE PERCENT (BEAKER) (test 75 % zjhd=302) LYMPHOCYTES RELATIVE PERCENT (BEAKER) (test 11 % ghlq=269) MONOCYTES RELATIVE PERCENT (BEAKER) (test 9 % gqge=135) EOSINOPHILS RELATIVE PERCENT (BEAKER) (test 5 % csra=613) BASOPHILS RELATIVE PERCENT (BEAKER) (test 0 % sjno=103) NEUTROPHILS ABSOLUTE COUNT (BEAKER) (test 4.07 K/ L 1.78-5.38 powj=921) LYMPHOCYTES ABSOLUTE COUNT (BEAKER) (test 0.58 K/ L 1.32-3.57 nfhu=053) MONOCYTES ABSOLUTE COUNT (BEAKER) (test filu=581) 0.46 K/ L 0.30-0.82 EOSINOPHILS ABSOLUTE COUNT (BEAKER) (test 0.28 K/ L 0.04-0.54 zyrv=764) BASOPHILS ABSOLUTE COUNT (BEAKER) (test vjpx=011) 0.01 K/ L 0.01-0.08 IMMATURE GRANULOCYTES-RELATIVE PERCENT (BEAKER) 0 % 0-1 (test dypk=5994) BLOOD [id number] 05:01:00 Test Item Value Reference Range Comments CULTURE (BEAKER) (test mwka=6260) No growth in 5 days BLOOD [id number] 05:01:00 Test Item Value Reference Range Comments CULTURE (BEAKER) (test xjmz=2658) No growth in 5 days URINE [id number] 11:54:00 Test Item Value Reference Range Comments CULTURE (BEAKER) (test nurf=8571) No growth URINE [id number] 10:42:00 Test Item Value Reference Range Comments CULTURE (BEAKER) (test ueaj=8380) No growth POCT-GLUCOSE [id number] 12:09:00 Test Item Value Reference Range Comments POC-GLUCOSE METER (BEAKER) 269 mg/dL 70-110 TESTED AT [address] (test cpcz=1012) [facility] [id number] POCT-GLUCOSE [id number] 07:35:00 Test Item Value Reference Range Comments POC-GLUCOSE METER (BEAKER) 139 mg/dL 70-110 TESTED AT [address] (test xlis=7057) [facility] [id number] CALCIUM, [id number] 07:24:00 Test Item Value Reference Range Comments CALCIUM IONIZED (BEAKER) (test kptq=142) 1.17 mmol/L 1.12-1.27 PH, BLOOD (BEAKER) (test yjlu=9019) 7.36 CBC W/PLT COUNT & AUTO [id number] 06:41:00 Test Item Value Reference Range Comments WHITE BLOOD CELL COUNT (BEAKER) (test dmry=992) 5.0 K/ L 3.5-10.5 RED BLOOD CELL COUNT (BEAKER) (test iamp=272) 2.81 M/ L 4.63-6.08 HEMOGLOBIN (BEAKER) (test lshr=708) 9.2 GM/DL 13.7-17.5 HEMATOCRIT (BEAKER) (test krwo=396) 27.7 % 40.1-51.0 MEAN CORPUSCULAR VOLUME (BEAKER) (test brfx=180) 98.6 fL 79.0-92.2 MEAN CORPUSCULAR HEMOGLOBIN (BEAKER) (test 32.7 pg 25.7-32.2 rxlm=320) MEAN CORPUSCULAR HEMOGLOBIN CONC (BEAKER) (test 33.2 GM/DL 32.3-36.5 tmib=540) RED CELL DISTRIBUTION WIDTH (BEAKER) (test 14.0 % 11.6-14.4 kzfe=828) PLATELET COUNT (BEAKER) (test tkal=490) 41 K/CU MM 150-450 MEAN PLATELET VOLUME (BEAKER) (test vwfu=799) 10.9 fL 9.4-12.4 NUCLEATED RED BLOOD CELLS (BEAKER) (test 0 /100 WBC 0-0 grug=555) NEUTROPHILS RELATIVE PERCENT (BEAKER) (test 70 % xwhu=094) LYMPHOCYTES RELATIVE PERCENT (BEAKER) (test 11 % qzni=130) MONOCYTES RELATIVE PERCENT (BEAKER) (test 11 % sfbt=485) EOSINOPHILS RELATIVE PERCENT (BEAKER) (test 7 % uevf=726) BASOPHILS RELATIVE PERCENT (BEAKER) (test 0 % iwdv=757) NEUTROPHILS ABSOLUTE COUNT (BEAKER) (test 3.48 K/ L 1.78-5.38 sicd=984) LYMPHOCYTES ABSOLUTE COUNT (BEAKER) (test 0.54 K/ L 1.32-3.57 gcrj=232) MONOCYTES ABSOLUTE COUNT (BEAKER) (test cmzb=955) 0.57 K/ L 0.30-0.82 EOSINOPHILS ABSOLUTE COUNT (BEAKER) (test 0.36 K/ L 0.04-0.54 wphj=708) BASOPHILS ABSOLUTE COUNT (BEAKER) (test llcw=681) 0.02 K/ L 0.01-0.08 IMMATURE GRANULOCYTES-RELATIVE PERCENT (BEAKER) 0 % 0-1 (test utvz=4520) [id number] 06:38:00 Test Item Value Reference Range Comments PHOSPHORUS (BEAKER) (test chrw=405) 3.4 mg/dL 2.3-4.7 [id number] 06:38:00 Test Item Value Reference Range Comments MAGNESIUM (BEAKER) (test ntrx=405) 1.8 mg/dL 1.6-2.6 HEPATIC FUNCTION [id number] 06:38:00 Test Item Value Reference Range Comments TOTAL PROTEIN (BEAKER) (test lkwp=024) 6.7 gm/dL 6.0-8.3 ALBUMIN (BEAKER) (test llaf=3733) 3.1 g/dL 3.5-5.0 BILIRUBIN TOTAL (BEAKER) (test uppq=191) 1.7 mg/dL 0.2-1.2 BILIRUBIN DIRECT (BEAKER) (test ikly=254) 0.8 mg/dL 0.1-0.5 ALKALINE PHOSPHATASE (BEAKER) (test ljbq=845) 108 U/L 40-150 AST (SGOT) (BEAKER) (test oznx=528) 35 U/L 5-34 ALT (SGPT) (BEAKER) (test tnho=789) 24 U/L 6-55 COMPREHENSIVE METABOLIC [id number] 06:38:00 Test Item Value Reference Range Comments TOTAL PROTEIN (BEAKER) 6.7 gm/dL 6.0-8.3 (test hcek=806) ALBUMIN (BEAKER) (test 3.1 g/dL 3.5-5.0 ydqz=8192) ALKALINE PHOSPHATASE 108 U/L 40-150 (BEAKER) (test enxb=750) BILIRUBIN TOTAL (BEAKER) 1.7 mg/dL 0.2-1.2 (test janc=040) SODIUM (BEAKER) (test 135 meq/L 136-145 cybd=671) POTASSIUM (BEAKER) (test 4.2 meq/L 3.5-5.1 pcgn=920) CHLORIDE (BEAKER) (test 105 meq/L 98-107 fscw=118) CO2 (BEAKER) (test 25 meq/L 22-29 beub=764) BLOOD UREA NITROGEN 38 mg/dL 7-21 (BEAKER) (test hfpi=657) CREATININE (BEAKER) (test 1.27 mg/dL 0.57-1.25 ducz=325) GLUCOSE RANDOM (BEAKER) 132 mg/dL 70-105 (test yemp=198) CALCIUM (BEAKER) (test 9.0 mg/dL 8.4-10.2 ulfp=104) AST (SGOT) (BEAKER) (test 35 U/L 5-34 hclv=432) ALT (SGPT) (BEAKER) (test 24 U/L 6-55 vywo=781) EGFR (BEAKER) (test 56 mL/min/1.73 sq m ESTIMATED GFR IS NOT vsgh=1685) ACCURATE CREATININE CLEARANCE IN PREDICTING GLOMERULAR FILTRATION RATE. ESTIMATED GFR IS NOT APPLICABLE FOR DIALYSIS PATIENTS. PT/[id number] 06:27:00 Test Item Value Reference Range Comments PROTIME (BEAKER) (test gnlt=908) 16.9 seconds 11.7-14.7 INR (BEAKER) (test hvom=937) 1.4 <=5.9 PARTIAL THROMBOPLASTIN TIME (BEAKER) (test 36.9 seconds 22.5-36.0 zwdi=301) RECOMMENDED COUMADIN/WARFARIN INR THERAPY RANGESSTANDARD DOSE: 2.0 - 3.0 Includes: PROPHYLAXIS forvenous thrombosis, systemic embolization; TREATMENT for venous thrombosis and/or pulmonary embolus.HIGH RISK: Target INR is 2.5-3.5 for patients with mechanical heart valves.PROTHROMBIN TIME/[id number] 06:26: 00 Test Item Value Reference Range Comments PROTIME (BEAKER) (test tsbp=856) 16.9 seconds 11.7-14.7 INR (BEAKER) (test fevu=566) 1.4 <=5.9 RECOMMENDED COUMADIN/WARFARIN INR THERAPY RANGESSTANDARD DOSE: 2.0 - 3.0 Includes: PROPHYLAXIS forvenous thrombosis, systemic embolization; TREATMENT for venous thrombosis and/or pulmonary embolus.HIGH RISK: Target INR is 2.5-3.5 for patients with mechanical heart valves.POCT-GLUCOSE [id number] 21:26:00 Test Item Value Reference Range Comments POC-GLUCOSE METER (BEAKER) 289 mg/dL 70-110 TESTED AT [address] (test ysva=7904) [place] [address] POCT-GLUCOSE [id number] 17:50:00 Test Item Value Reference Range Comments POC-GLUCOSE METER (BEAKER) 197 mg/dL 70-110 TESTED AT [address] (test zgyx=9730) [place] [address] POCT-GLUCOSE [id number] 12:49:00 Test Item Value Reference Range Comments POC-GLUCOSE METER (BEAKER) 356 mg/dL 70-110 Notified DIMA SIFUENTES/TESTED AT [facility] (test uehw=7376) [address] [place] [address] [id number] 12:38:00 Test Item Value Reference Range Comments PREALBUMIN (BEAKER) (test czff=585) 11 mg/dL 14-45 Listed for OLT - nutrition surveillance ([facility] Hepatology)HEMOGLOBIN [id number] 09:57:00 Test Item Value Reference Range Comments HEMOGLOBIN A1C (BEAKER) (test xurl=726) 7.8 % 4.3-6.1 POCT-GLUCOSE [id number] 08:25:00 Test Item Value Reference Range Comments POC-GLUCOSE METER (BEAKER) 120 mg/dL 70-110 TESTED AT [address] (test sqom=2230) [place] [address] [id number] 07:53:00 Test Item Value Reference Range Comments PHOSPHORUS (BEAKER) (test fsus=613) 3.1 mg/dL 2.3-4.7 [id number] 07:53:00 Test Item Value Reference Range Comments MAGNESIUM (BEAKER) (test mtbj=467) 1.7 mg/dL 1.6-2.6 BASIC METABOLIC [id number] 07:53:00 Test Item Value Reference Range Comments SODIUM (BEAKER) (test 136 meq/L 136-145 oyqg=822) POTASSIUM (BEAKER) (test 4.3 meq/L 3.5-5.1 zquf=193) CHLORIDE (BEAKER) (test 103 meq/L 98-107 xihb=553) CO2 (BEAKER) (test 25 meq/L 22-29 hbky=538) BLOOD UREA NITROGEN 38 mg/dL 7-21 (BEAKER) (test uujh=035) CREATININE (BEAKER) (test 1.33 mg/dL 0.57-1.25 mvab=183) GLUCOSE RANDOM (BEAKER) 120 mg/dL 70-105 (test zurq=182) CALCIUM (BEAKER) (test 9.3 mg/dL 8.4-10.2 psuy=046) EGFR (BEAKER) (test 53 mL/min/1.73 sq m ESTIMATED GFR IS NOT nmvn=4792) ACCURATE CREATININE CLEARANCE IN PREDICTING GLOMERULAR FILTRATION RATE. ESTIMATED GFR IS NOT APPLICABLE FOR DIALYSIS PATIENTS. Specimen slightly ictericHEPATIC FUNCTION [id number] 07:53:00 Test Item Value Reference Range Comments TOTAL PROTEIN (BEAKER) (test ljpq=112) 7.0 gm/dL 6.0-8.3 ALBUMIN (BEAKER) (test xxjb=4577) 2.9 g/dL 3.5-5.0 BILIRUBIN TOTAL (BEAKER) (test scos=239) 2.0 mg/dL 0.2-1.2 BILIRUBIN DIRECT (BEAKER) (test ajse=874) 0.9 mg/dL 0.1-0.5 ALKALINE PHOSPHATASE (BEAKER) (test fjzq=959) 114 U/L 40-150 AST (SGOT) (BEAKER) (test nwip=149) 42 U/L 5-34 ALT (SGPT) (BEAKER) (test zgiu=307) 28 U/L 6-55 Specimen slightly ictericPT/[id number] 07:46:00 Test Item Value Reference Range Comments PROTIME (BEAKER) (test fvth=695) 16.6 seconds 11.7-14.7 INR (BEAKER) (test zcvf=869) 1.4 <=5.9 PARTIAL THROMBOPLASTIN TIME (BEAKER) (test 39.3 seconds 22.5-36.0 xhhn=669) RECOMMENDED COUMADIN/WARFARIN INR THERAPY RANGESSTANDARD DOSE: 2.0 - 3.0 Includes: PROPHYLAXIS forvenous thrombosis, systemic embolization; TREATMENT for venous thrombosis and/or pulmonary embolus.HIGH RISK: Target INR is 2.5-3.5 for patients with mechanical heart valves.PROTHROMBIN TIME/[id number] 07:45: 00 Test Item Value Reference Range Comments PROTIME (BEAKER) (test zpof=962) 16.6 seconds 11.7-14.7 INR (BEAKER) (test jndd=442) 1.4 <=5.9 RECOMMENDED COUMADIN/WARFARIN INR THERAPY RANGESSTANDARD DOSE: 2.0 - 3.0 Includes: PROPHYLAXIS forvenous thrombosis, systemic embolization; TREATMENT for venous thrombosis and/or pulmonary embolus.HIGH RISK: Target INR is 2.5-3.5 for patients with mechanical heart valves.CALCIUM, [id number] 07:42:00 Test Item Value Reference Range Comments CALCIUM IONIZED (BEAKER) (test aqgi=339) 1.18 mmol/L 1.12-1.27 PH, BLOOD (BEAKER) (test waod=8742) 7.42 CBC W/PLT COUNT & AUTO [id number] 07:37:00 Test Item Value Reference Range Comments WHITE BLOOD CELL COUNT (BEAKER) (test tqrd=773) 6.3 K/ L 3.5-10.5 RED BLOOD CELL COUNT (BEAKER) (test tudd=322) 3.06 M/ L 4.63-6.08 HEMOGLOBIN (BEAKER) (test glbd=964) 9.8 GM/DL 13.7-17.5 HEMATOCRIT (BEAKER) (test rvgb=902) 30.0 % 40.1-51.0 MEAN CORPUSCULAR VOLUME (BEAKER) (test krib=979) 98.0 fL 79.0-92.2 MEAN CORPUSCULAR HEMOGLOBIN (BEAKER) (test 32.0 pg 25.7-32.2 vkvu=487) MEAN CORPUSCULAR HEMOGLOBIN CONC (BEAKER) (test 32.7 GM/DL 32.3-36.5 jrbm=072) RED CELL DISTRIBUTION WIDTH (BEAKER) (test 14.2 % 11.6-14.4 wgmp=498) PLATELET COUNT (BEAKER) (test dtpr=051) 49 K/CU MM 150-450 MEAN PLATELET VOLUME (BEAKER) (test vgnj=514) 10.6 fL 9.4-12.4 NUCLEATED RED BLOOD CELLS (BEAKER) (test 0 /100 WBC 0-0 fqyl=798) NEUTROPHILS RELATIVE PERCENT (BEAKER) (test 72 % rbht=265) LYMPHOCYTES RELATIVE PERCENT (BEAKER) (test 11 % inqj=089) MONOCYTES RELATIVE PERCENT (BEAKER) (test 11 % zzvm=362) EOSINOPHILS RELATIVE PERCENT (BEAKER) (test 6 % rqnu=843) BASOPHILS RELATIVE PERCENT (BEAKER) (test 1 % owqg=954) NEUTROPHILS ABSOLUTE COUNT (BEAKER) (test 4.47 K/ L 1.78-5.38 uvmu=560) LYMPHOCYTES ABSOLUTE COUNT (BEAKER) (test 0.67 K/ L 1.32-3.57 wlyg=476) MONOCYTES ABSOLUTE COUNT (BEAKER) (test hysh=960) 0.66 K/ L 0.30-0.82 EOSINOPHILS ABSOLUTE COUNT (BEAKER) (test 0.40 K/ L 0.04-0.54 innc=381) BASOPHILS ABSOLUTE COUNT (BEAKER) (test ifio=768) 0.03 K/ L 0.01-0.08 IMMATURE GRANULOCYTES-RELATIVE PERCENT (BEAKER) 0 % 0-1 (test wvvg=3546) RAD, MANDIBLE, MIN 4 [id number] 22:46:00Reason for exam:->rule out infectionFINAL REPORT EXAMINATION: [...] The orbits are unremarkable. Signed: Augie Vilchis Verified Date/Time: 06/19/2017 22:46:13 Reading Location: [address] Reading Room U/S, ABDOMINAL, [id number] 18:18:00Reason for exam:->ALTERED MENTAL STATUSFINAL REPORT Limited abdomen ultrasound. Multiple transaxial and longitudinalimages were obtained through the patient's abdomen. Nuchal diagnosis ascites. There is no evidence of a drainable fluid collection. The patient's paracentesis was canceled. Signed: Ingrid MelgarVerified Date/Time: 06/19/2017 18:18:55 Reading Location: [facility] B1 P006J Ultrasound Reading Room POCT-GLUCOSE [id number] 16:09:00 Test Item Value Reference Range Comments POC-GLUCOSE METER (BEAKER) 206 mg/dL 70-[address] [facility] [address] [facility] (test dmez=1795) [facility] [address] CT, BRAIN, WITHOUT [id number] 15:26:00Reason for exam:-> ConfusionFINAL REPORT CT head [...] and chronic microvascular ischemic changes. Signed: Jonnie Keitheport Verified Date/Time: 06/19/2017 15:26:22 Reading Location: [facility] C013W Consult Reading Room HEPATIC FUNCTION [id number] 15:17:00 Test Item Value Reference Range Comments TOTAL PROTEIN (BEAKER) (test efbn=119) 7.1 gm/dL 6.0-8.3 ALBUMIN (BEAKER) (test gvgt=8177) 3.0 g/dL 3.5-5.0 BILIRUBIN TOTAL (BEAKER) (test wndl=472) 1.8 mg/dL 0.2-1.2 BILIRUBIN DIRECT (BEAKER) (test ffuz=724) 0.9 mg/dL 0.1-0.5 ALKALINE PHOSPHATASE (BEAKER) (test ugsu=731) 139 U/L 40-150 AST (SGOT) (BEAKER) (test debv=674) 46 U/L 5-34 ALT (SGPT) (BEAKER) (test kyun=110) 34 U/L 6-55 Order for age greater than 18 with no history of head injury or liver disease patients of any ageOrder for age greater than 18 with no history of head injury or liver disease patients of any agePOCT-GLUCOSE [id number] 15:12:00 Test Item Value Reference Range Comments POC-GLUCOSE METER (BEAKER) 446 mg/dL 70-[address] [facility] [address] [place] [address] (test vzzz=5901) [facility] [address] POCT-GLUCOSE [id number] 15:12:00 Test Item Value Reference Range Comments POC-GLUCOSE METER (BEAKER) 497 mg/dL 70-110 TESTED AT [address] (test gtib=5395) [facility] [address] BLOOD GAS, [id number] 14:59:00 Test Item Value Reference Range Comments PH VENOUS (BEAKER) (test ykew=302) 7.37 7.32-7.42 PCO2 VENOUS (BEAKER) (test anao=853) 50 mm Hg 41-51 PO2 VENOUS (BEAKER) (test nscc=150) 31 mm Hg 25-40 O2 SATURATION VENOUS (BEAKER) (test hcph=283) 56.7 % 40.0-70.0 HCO3 VENOUS (BEAKER) (test jqqx=154) 28 mmol/L 21-29 BASE EXCESS VENOUS (BEAKER) (test hbrb=262) 2.1 mmol/L -2.0-3.0 PATIENT TEMPERATURE (BEAKER) (test irwv=4388) 37.0 FIO2 (BEAKER) (test yjlx=2780) 21 URINALYSIS W/ [id number] 14:41:00 Test Item Value Reference Range Comments COLOR (BEAKER) (test syza=194) Light Yellow CLARITY (BEAKER) (test gzbl=994) Clear SPECIFIC GRAVITY UA (BEAKER) (test eoxu=123) 1.004 1.001-1.035 PH UA (BEAKER) (test pgnx=338) 5.0 5.0-8.0 PROTEIN UA (BEAKER) (test gcfy=420) Negative Negative GLUCOSE UA (BEAKER) (test lwcf=804) 500 mg/dL Negative KETONES UA (BEAKER) (test ekas=930) Negative Negative BILIRUBIN UA (BEAKER) (test zpjj=864) Negative Negative BLOOD UA (BEAKER) (test nncf=362) Negative Negative NITRITE UA (BEAKER) (test arue=032) Negative Negative LEUKOCYTE ESTERASE UA (BEAKER) (test rdwm=333) Negative Negative UROBILINOGEN UA (BEAKER) (test jwag=031) 0.2 mg/dL 0.2-1.0 RBC UA (BEAKER) (test frpv=544) 0 /HPF WBC UA (BEAKER) (test jsob=847) 3 /HPF SOURCE(BEAKER) (test qisj=9287) RAD, CHEST, 1 VIEW, NON [id number] 14:15:00Reason for exam:->ALTERED MENTAL STATUSShould this be [...] Verified Date/Time: 06/19/2017 14:15:26 Reading Location: [facility] Reading Room Electronically signed by: ANDIE PINON M.D. on 2016 02:15 PMBASI METABOLIC [id number] 14:02:00 Test Item Value Reference Range Comments SODIUM (BEAKER) (test 131 meq/L 136-145 rybj=431) POTASSIUM (BEAKER) (test 4.5 meq/L 3.5-5.1 eizl=286) CHLORIDE (BEAKER) (test 99 meq/L 98-107 qccz=459) CO2 (BEAKER) (test 26 meq/L 22-29 niaf=792) BLOOD UREA NITROGEN 40 mg/dL 7-21 (BEAKER) (test axcd=280) CREATININE (BEAKER) (test 1.73 mg/dL 0.57-1.25 rwny=477) GLUCOSE RANDOM (BEAKER) 468 mg/dL 70-105 (test ousc=433) CALCIUM (BEAKER) (test 9.7 mg/dL 8.4-10.2 pfqd=614) EGFR (BEAKER) (test 39 mL/min/1.73 sq m ESTIMATED GFR IS NOT thjk=0094) ACCURATE CREATININE CLEARANCE IN PREDICTING GLOMERULAR FILTRATION RATE. ESTIMATED GFR IS NOT APPLICABLE FOR DIALYSIS PATIENTS. Order for age greater than 18 with no history of head injury or liver disease patients of any ageOrder for age greater than 18 with no history of head injury or liver disease patients of any ageRAPID DRUG SCREEN, [id number] 13:57:00 Test Item Value Reference Range Comments BARBITURATE URINE (BEAKER) (test ncuw=192) Negative Negative BENZODIAZEPINE SCREEN URINE (BEAKER) (test Negative Negative edcf=076) COCAINE (METAB.) SCREEN (BEAKER) (test fnot=9157) Negative Negative METHADONE SCREEN (BEAKER) (test kicj=1605) Negative Negative OPIATE SCREEN URINE (BEAKER) (test mdnj=554) Negative Negative CANNABINOID SCREEN URINE (BEAKER) (test lnas=798) Negative Negative AMPH/METHAMPH SCREEN (BEAKER) (test pgqj=4179) Negative Negative PHENCYCLIDINE SCREEN URINE (BEAKER) (test msba=253) Negative Negative OXYCODONE SCREEN URINE (BEAKER) (test qzww=2337) Negative Negative DRUG CUTOFF CONC.Cocaine 300 ng/mL Cannabinoid 50 ng/mL Benzodiazepine 200 ng/mLBarbiturate 200 ng/ mLPhencyclidine 25 ng/mLOpiate 300 ng/mLMethadone 300 ng/mLAmphetamine/ 1000 ng/mL MethamphetamineOxycodone 300 ng/mLThis assay provides an unconfirmed qualitative test result for the clinical management of patients in emergency situations. Chain of custody not maintained. Some czpt-cfa-ahajvpn medications, as well as adulterants, may cause inaccurate results. Clinical correlation should be applied. A more comprehensive drug screen or confirmation of a detected drug may be performed upon request.CREATINE KINASE (CK), TOTAL AND [id number] 13:48:00 Test Item Value Reference Range Comments CREATINE KINASE TOTAL (BEAKER) (test hjdw=658) 184 U/L 29-200 CREATINE KINASE-MB (BEAKER) (test yxoo=312) 4.4 ng/mL 0.0-6.6 CREATINE KINASE-MB INDEX (BEAKER) (test qofs=783) 2.4 % CK-MB Reference Range:<6.7 Normal6.7-10.0 Borderline>10.0 [...] or liver disease patients of any ageTROPONIN [id number] 13:48:00 Test Item Value Reference Range Comments TROPONIN I (BEAKER) (test lshz=790) 0.01 ng/mL 0.00-0.03 Troponin I (TnI) levels [...] or liver disease patients of any ageKETONE, [id number] 13:44:00 Test Item Value Reference Range Comments KETONES, BLOOD (BEAKER) (test qlsr=8450) 0.2 mmol/L <0.4 [id number] 13:42:00 Test Item Value Reference Range Comments PHOSPHORUS (BEAKER) (test ikts=554) 3.5 mg/dL 2.3-4.7 Order for age greater than 18 with no history of head injury or liver disease patients of any ageOrder for age greater than 18 with no history of head injury or liver disease patients of any [id number] 13:42:00 Test Item Value Reference Range Comments MAGNESIUM (BEAKER) (test qcmj=825) 1.7 mg/dL 1.6-2.6 Order for age greater than 18 with no history of head injury or liver disease patients of any ageOrder for age greater than 18 with no history of head injury or liver disease patients of any [id number] 13:34:00 Test Item Value Reference Range Comments AMMONIA (BEAKER) (test tofm=262) 27 mol/L 18-72 [id number] 13:18:00 Test Item Value Reference Range Comments PROTIME (BEAKER) (test ovdo=121) 16.5 seconds 11.7-14.7 INR (BEAKER) (test arhm=577) 1.3 <=5.9 PARTIAL THROMBOPLASTIN TIME (BEAKER) (test 34.2 seconds 22.5-36.0 pruv=624) RECOMMENDED COUMADIN/WARFARIN INR THERAPY RANGESSTANDARD DOSE: 2.0 - 3.0 Includes: PROPHYLAXIS forvenous thrombosis, systemic embolization; TREATMENT for venous thrombosis and/or pulmonary embolus.HIGH RISK: Target INR is 2.5-3.5 for patients with mechanical heart valves.CBC W/PLT COUNT & AUTO [id number] 13:13:00 Test Item Value Reference Range Comments WHITE BLOOD CELL COUNT (BEAKER) (test lrnr=344) 5.9 K/ L 3.5-10.5 RED BLOOD CELL COUNT (BEAKER) (test krjh=199) 3.12 M/ L 4.63-6.08 HEMOGLOBIN (BEAKER) (test gxzn=161) 10.2 GM/DL 13.7-17.5 HEMATOCRIT (BEAKER) (test fyix=325) 31.2 % 40.1-51.0 MEAN CORPUSCULAR VOLUME (BEAKER) (test khiv=430) 100.0 fL 79.0-92.2 MEAN CORPUSCULAR HEMOGLOBIN (BEAKER) (test 32.7 pg 25.7-32.2 hiny=410) MEAN CORPUSCULAR HEMOGLOBIN CONC (BEAKER) (test 32.7 GM/DL 32.3-36.5 cptm=393) RED CELL DISTRIBUTION WIDTH (BEAKER) (test 14.3 % 11.6-14.4 ylrq=735) PLATELET COUNT (BEAKER) (test oegx=246) 49 K/CU MM 150-450 MEAN PLATELET VOLUME (BEAKER) (test ulia=412) 11.7 fL 9.4-12.4 NUCLEATED RED BLOOD CELLS (BEAKER) (test 0 /100 WBC 0-0 tokm=209) NEUTROPHILS RELATIVE PERCENT (BEAKER) (test 76 % mrfr=991) LYMPHOCYTES RELATIVE PERCENT (BEAKER) (test 10 % hdya=192) MONOCYTES RELATIVE PERCENT (BEAKER) (test 9 % czkw=657) EOSINOPHILS RELATIVE PERCENT (BEAKER) (test 4 % ivlz=083) BASOPHILS RELATIVE PERCENT (BEAKER) (test 0 % mrxe=964) NEUTROPHILS ABSOLUTE COUNT (BEAKER) (test 4.46 K/ L 1.78-5.38 pawt=352) LYMPHOCYTES ABSOLUTE COUNT (BEAKER) (test 0.57 K/ L 1.32-3.57 otqm=799) MONOCYTES ABSOLUTE COUNT (BEAKER) (test ylsa=969) 0.55 K/ L 0.30-0.82 EOSINOPHILS ABSOLUTE COUNT (BEAKER) (test 0.26 K/ L 0.04-0.54 lwrk=040) BASOPHILS ABSOLUTE COUNT (BEAKER) (test jqkp=146) 0.02 K/ L 0.01-0.08 IMMATURE GRANULOCYTES-RELATIVE PERCENT (BEAKER) 1 % 0-1 (test ddxn=3943) RAD, BONE DENSITY [id number] 13:07:00Reason for Exam:->screening for osteoporosis. history of osteopenia. cirrhosis, on liver transplant listFINAL REPORT Bone mineral density study 06/04/2017. CLINICAL INDICATION: Screening for osteoporosis. History of osteopenia. Cirrhosis, on liver transplant list. COMPARISON: 03/10/2014 FINDINGS: Evaluation of the left and right femoral necks and lumbar spine was performed utilizing a [employer] bone densitometer. Data reflect young adult [...] Keller Verified Date/Time: 06/04/2017 13:07:47 Reading Location: [facility] Electronically signed by: LILLIAM KELLER on 01:07 PMRAD, CHEST, 2 [id number] 12:50:00Reason for Exam:-> cough x2-3weeksLocation->[facility] HospitalFINAL REPORT INDICATION: cough x2-3weeks COMPARISON: September [...] Blank[place]hip Verified Date/Time: 04/30/2017 12:50:04 Reading Location: [address] Radiology Reading Room ALPHA FETOPROTEIN (AFP), TUMOR [id number] 16:38:00 Test Item Value Reference Range Comments ALPHA-FETOPROTEIN (BEAKER) (test dvgo=4454) < ng/mL <10.0 Effective 06/01/2014: Reference Range ChangeNew: <10.0 Previous: 0.0- 8.0COMPREHENSIVE METABOLIC [id number] 15:51:00 Test Item Value Reference Range Comments TOTAL PROTEIN (BEAKER) 7.5 gm/dL 6.0-8.3 (test vilw=619) ALBUMIN (BEAKER) (test 3.1 g/dL 3.5-5.0 qoes=8355) ALKALINE PHOSPHATASE 125 U/L 40-150 (BEAKER) (test tvjj=941) BILIRUBIN TOTAL (BEAKER) 1.8 mg/dL 0.2-1.2 (test tlaw=403) SODIUM (BEAKER) (test 135 meq/L 136-145 ymal=312) POTASSIUM (BEAKER) (test 3.9 meq/L 3.5-5.1 wffy=833) CHLORIDE (BEAKER) (test 100 meq/L 98-107 wpjk=686) CO2 (BEAKER) (test 26 meq/L 22-29 mkqb=076) BLOOD UREA NITROGEN 49 mg/dL 7-21 (BEAKER) (test qudw=971) CREATININE (BEAKER) (test 1.74 mg/dL 0.57-1.25 yubb=165) GLUCOSE RANDOM (BEAKER) 170 mg/dL 70-105 (test twas=447) CALCIUM (BEAKER) (test 9.0 mg/dL 8.4-10.2 hjwh=423) AST (SGOT) (BEAKER) (test 55 U/L 5-34 daul=826) ALT (SGPT) (BEAKER) (test 32 U/L 6-55 fbkq=310) EGFR (BEAKER) (test 39 mL/min/1.73 sq m ESTIMATED GFR IS NOT snkp=5578) ACCURATE CREATININE CLEARANCE IN PREDICTING GLOMERULAR FILTRATION RATE. ESTIMATED GFR IS NOT APPLICABLE FOR DIALYSIS PATIENTS. BILIRUBIN, [id number] 15:51:00 Test Item Value Reference Range Comments BILIRUBIN DIRECT (BEAKER) (test msjt=040) 1.0 mg/dL 0.1-0.5 PROTHROMBIN [id number] 15:37:00 Test Item Value Reference Range Comments PROTIME (BEAKER) (test ndzc=987) 16.7 seconds 11.7-14.7 INR (BEAKER) (test ecjn=594) 1.4 <=5.9 RECOMMENDED COUMADIN/WARFARIN INR THERAPY RANGESSTANDARD DOSE: 2.0 - 3.0 Includes: PROPHYLAXIS forvenous thrombosis, systemic embolization; TREATMENT for venous thrombosis and/or pulmonary embolus.HIGH RISK: Target INR is 2.5-3.5 for patients with mechanical heart valves.CBC W/PLT COUNT & AUTO [id number] 15:33:00 Test Item Value Reference Range Comments WHITE BLOOD CELL COUNT 5.3 K/ L 3.5-10.5 (BEAKER) (test ybgt=808) RED BLOOD CELL COUNT (BEAKER) 2.62 M/ L 4.63-6.08 (test tvvr=322) HEMOGLOBIN (BEAKER) (test 8.8 GM/DL 13.7-17.5 kqzz=718) HEMATOCRIT (BEAKER) (test 26.1 % 40.1-51.0 dzve=641) MEAN CORPUSCULAR VOLUME 99.6 fL 79.0-92.2 (BEAKER) (test yzrl=509) MEAN CORPUSCULAR HEMOGLOBIN 33.6 pg 25.7-32.2 (BEAKER) (test kcqj=451) MEAN CORPUSCULAR HEMOGLOBIN 33.7 GM/DL 32.3-36.5 CONC (BEAKER) (test wrmp=363) RED CELL DISTRIBUTION WIDTH 16.8 % 11.6-14.4 (BEAKER) (test jlus=540) PLATELET COUNT (BEAKER) (test 37 K/CU MM 150-450 kbmm=510) MEAN PLATELET VOLUME (BEAKER) fL 9.4-12.4 Unable to report due to (test pcsn=972) abnormal Platelet population distribution. NUCLEATED RED BLOOD CELLS 0 /100 WBC 0-0 (BEAKER) (test cjva=676) NEUTROPHILS RELATIVE PERCENT 77 % (BEAKER) (test kfqi=873) LYMPHOCYTES RELATIVE PERCENT 7 % (BEAKER) (test jdld=203) MONOCYTES RELATIVE PERCENT 8 % (BEAKER) (test fpiv=341) EOSINOPHILS RELATIVE PERCENT 7 % (BEAKER) (test ffax=037) BASOPHILS RELATIVE PERCENT 0 % (BEAKER) (test gxcx=333) NEUTROPHILS ABSOLUTE COUNT 4.07 K/ L 1.78-5.38 (BEAKER) (test jiar=333) LYMPHOCYTES ABSOLUTE COUNT 0.39 K/ L 1.32-3.57 (BEAKER) (test mces=255) MONOCYTES ABSOLUTE COUNT 0.43 K/ L 0.30-0.82 (BEAKER) (test zgxq=467) EOSINOPHILS ABSOLUTE COUNT 0.37 K/ L 0.04-0.54 (BEAKER) (test zlhd=609) BASOPHILS ABSOLUTE COUNT 0.01 K/ L 0.01-0.08 (BEAKER) (test cahp=662) IMMATURE GRANULOCYTES-RELATIVE 0 % 0-1 PERCENT (BEAKER) (test eank=3535) [id number] 14:33:00 Test Item Value Reference Range Comments HEMOGLOBIN (BEAKER) (test oasp=815) 9.3 GM/DL 13.0-16.8 PLATELET [id number] 14:33:00 Test Item Value Reference Range Comments PLATELET COUNT (BEAKER) (test qtyy=393) 48 K/CU MM 150-430 ALKALINE [id number] 14:27:00 Test Item Value Reference Range Comments ALKALINE PHOSPHATASE (BEAKER) (test ivtx=106) 159 U/L 40-150 Effective 06/01/2014: Alkaline Phosphatase Reference Range Change-Adult onlyNew : 40-150 Previous: [id number] 14:27:00 Test Item Value Reference Range Comments SODIUM (BEAKER) (test fbyi=526) 131 meq/L 136-145 POTASSIUM (BEAKER) (test dtjb=695) 4.4 meq/L 3.5-5.1 CHLORIDE (BEAKER) (test pzld=077) 98 meq/L 98-107 CO2 (BEAKER) (test rztp=150) 28 meq/L 22-29 AST (SGOT)[id number] 14:27:00 Test Item Value Reference Range Comments AST (SGOT) (BEAKER) (test rztj=590) 60 U/L 5-34 BUN AND [id number] 14:27:00 Test Item Value Reference Range Comments BLOOD UREA NITROGEN 48 mg/dL 7-21 (BEAKER) (test teit=374) CREATININE (BEAKER) (test 1.43 mg/dL 0.57-1.25 cqqe=510) EGFR (BEAKER) (test 49 mL/min/1.73 sq m ESTIMATED GFR IS NOT zcdd=0841) ACCURATE CREATININE CLEARANCE IN PREDICTING GLOMERULAR FILTRATION RATE. ESTIMATED GFR IS NOT APPLICABLE FOR DIALYSIS PATIENTS. [id number] 14:13:00 Test Item Value Reference Range Comments PROTIME (BEAKER) (test ayma=223) 16.7 seconds 11.7-14.7 INR (BEAKER) (test gsfo=311) 1.4 <=5.9 PARTIAL THROMBOPLASTIN TIME (BEAKER) (test 35.7 seconds 22.5-36.0 jcsn=233) RECOMMENDED COUMADIN/WARFARIN INR THERAPY RANGESSTANDARD DOSE: 2.0 - 3.0 Includes: PROPHYLAXIS forvenous thrombosis, systemic embolization; TREATMENT for venous thrombosis and/or pulmonary embolus.HIGH RISK: Target INR is 2.5-3.5 for patients with mechanical heart valves.B-TYPE NATRIURETIC FACTOR (BNP)2016-09 13:43:00 Test Item Value Reference Range Comments B-TYPE NATRIURETIC PEPTIDE (BEAKER) (test 454 pg/mL 0-100 htas=798) [id number] 13:34:00 Test Item Value Reference Range Comments MAGNESIUM (BEAKER) (test jhrh=444) 1.6 mg/dL 1.6-2.6 BASIC METABOLIC [id number] 13:34:00 Test Item Value Reference Range Comments SODIUM (BEAKER) (test 133 meq/L 136-145 pyvo=257) POTASSIUM (BEAKER) (test 4.9 meq/L 3.5-5.1 vuoy=088) CHLORIDE (BEAKER) (test 104 meq/L 98-107 lpys=822) CO2 (BEAKER) (test 22 meq/L 22-29 wzur=835) BLOOD UREA NITROGEN 23 mg/dL 7-21 (BEAKER) (test xwhy=267) CREATININE (BEAKER) (test 1.06 mg/dL 0.57-1.25 tamt=241) GLUCOSE RANDOM (BEAKER) 114 mg/dL 70-105 (test ibyw=293) CALCIUM (BEAKER) (test 8.8 mg/dL 8.4-10.2 ykvt=411) EGFR (BEAKER) (test 70 mL/min/1.73 sq m ESTIMATED GFR IS NOT rlcz=8735) ACCURATE CREATININE CLEARANCE IN PREDICTING GLOMERULAR FILTRATION RATE. ESTIMATED GFR IS NOT APPLICABLE FOR DIALYSIS PATIENTS. BLOOD [id number] 23:00:00 Test Item Value Reference Range Comments CULTURE (BEAKER) (test vbij=4837) No growth in 5 days URINE [id number] 14:21:00 Test Item Value Reference Range Comments CULTURE (BEAKER) (test hwag=3818) No growth BLOOD [id number] 11:00:00 Test Item Value Reference Range Comments CULTURE (BEAKER) (test hpnd=9522) No growth in 5 days BLOOD [id number] 05:00:00 Test Item Value Reference Range Comments CULTURE (BEAKER) (test tuel=3126) No growth in 5 days POCT-GLUCOSE [id number] 08:53:00 Test Item Value Reference Range Comments POC-GLUCOSE METER (BEAKER) 114 mg/dL 70-[address] [facility] [address] [facility] (test eixl=9690) [facility] [address] [id number] 05:32:00 Test Item Value Reference Range Comments PHOSPHORUS (BEAKER) (test opsr=125) 2.4 mg/dL 2.3-4.7 [id number] 05:32:00 Test Item Value Reference Range Comments MAGNESIUM (BEAKER) (test xgvj=230) 2.0 mg/dL 1.6-2.6 BASIC METABOLIC [id number] 05:32:00 Test Item Value Reference Range Comments SODIUM (BEAKER) (test 133 meq/L 136-145 zdcr=082) POTASSIUM (BEAKER) (test 3.9 meq/L 3.5-5.1 glun=193) CHLORIDE (BEAKER) (test 104 meq/L 98-107 lfyg=238) CO2 (BEAKER) (test 23 meq/L 22-29 kcxf=504) BLOOD UREA NITROGEN 25 mg/dL 7-21 (BEAKER) (test icsu=786) CREATININE (BEAKER) (test 1.17 mg/dL 0.57-1.25 rbtx=678) GLUCOSE RANDOM (BEAKER) 127 mg/dL 70-105 (test epwj=139) CALCIUM (BEAKER) (test 8.3 mg/dL 8.4-10.2 yhfr=168) EGFR (BEAKER) (test 62 mL/min/1.73 sq m ESTIMATED GFR IS NOT pfgh=3034) ACCURATE CREATININE CLEARANCE IN PREDICTING GLOMERULAR FILTRATION RATE. ESTIMATED GFR IS NOT APPLICABLE FOR DIALYSIS PATIENTS. HEPATIC FUNCTION [id number] 05:32:00 Test Item Value Reference Range Comments TOTAL PROTEIN (BEAKER) (test hefy=381) 5.7 gm/dL 6.0-8.3 ALBUMIN (BEAKER) (test cgfp=4434) 2.6 g/dL 3.5-5.0 BILIRUBIN TOTAL (BEAKER) (test hawt=943) 1.6 mg/dL 0.2-1.2 BILIRUBIN DIRECT (BEAKER) (test ugld=622) 0.8 mg/dL 0.1-0.5 ALKALINE PHOSPHATASE (BEAKER) (test onvm=695) 91 U/L 40-150 AST (SGOT) (BEAKER) (test pvzw=493) 28 U/L 5-34 ALT (SGPT) (BEAKER) (test wcfe=855) 13 U/L 6-55 CALCIUM, [id number] 05:21:00 Test Item Value Reference Range Comments CALCIUM IONIZED (BEAKER) (test heja=688) 1.05 mmol/L 1.12-1.27 PH, BLOOD (BEAKER) (test xbgz=2747) 7.46 CBC W/PLT COUNT & AUTO [id number] 05:08:00 Test Item Value Reference Range Comments WHITE BLOOD CELL COUNT (BEAKER) (test gfvr=395) 6.0 K/ L 4.0-10.0 RED BLOOD CELL COUNT (BEAKER) (test asxk=333) 2.80 M/ L 4.20-5.80 HEMOGLOBIN (BEAKER) (test ajje=338) 8.3 GM/DL 13.0-16.8 HEMATOCRIT (BEAKER) (test zfcn=939) 25.4 % 40.0-50.0 MEAN CORPUSCULAR VOLUME (BEAKER) (test tkkj=920) 90.6 fL 82.0-98.0 MEAN CORPUSCULAR HEMOGLOBIN (BEAKER) (test 29.5 pg 27.0-33.0 zpvw=322) MEAN CORPUSCULAR HEMOGLOBIN CONC (BEAKER) (test 32.5 GM/DL 32.0-36.0 lcsb=575) RED CELL DISTRIBUTION WIDTH (BEAKER) (test 17.4 % 10.3-14.2 teqv=649) PLATELET COUNT (BEAKER) (test psus=227) 53 K/CU MM 150-430 MEAN PLATELET VOLUME (BEAKER) (test izpb=191) 9.1 fL 6.5-10.5 NUCLEATED RED BLOOD CELLS (BEAKER) (test 0 /100 WBC 0-0 xbav=056) NEUTROPHILS RELATIVE PERCENT (BEAKER) (test 75 % ngsm=987) LYMPHOCYTES RELATIVE PERCENT (BEAKER) (test 7 % xepu=967) MONOCYTES RELATIVE PERCENT (BEAKER) (test 10 % eseu=267) EOSINOPHILS RELATIVE PERCENT (BEAKER) (test 8 % gcpx=238) BASOPHILS RELATIVE PERCENT (BEAKER) (test 0 % plmw=330) NEUTROPHILS ABSOLUTE COUNT (BEAKER) (test 4.47 K/ L 1.80-8.00 lzqv=841) LYMPHOCYTES ABSOLUTE COUNT (BEAKER) (test 0.39 K/ L 1.48-4.50 cbqz=822) MONOCYTES ABSOLUTE COUNT (BEAKER) (test akpm=124) 0.59 K/ L 0.00-1.30 EOSINOPHILS ABSOLUTE COUNT (BEAKER) (test 0.49 K/ L 0.00-0.50 cozc=736) BASOPHILS ABSOLUTE COUNT (BEAKER) (test sepq=026) 0.01 K/ L 0.00-0.20 0.00POCT-GLUCOSE [id number] 21:17:00 Test Item Value Reference Range Comments POC-GLUCOSE METER (BEAKER) 176 mg/dL 70-110 TESTED AT [address] (test gkcs=3244) [facility] [address] POCT-GLUCOSE [id number] 17:54:00 Test Item Value Reference Range Comments POC-GLUCOSE METER (BEAKER) 214 mg/dL 70-110 TESTED AT [address] (test tfuf=7497) [facility] [address] POCT-GLUCOSE [id number] 17:14:00 Test Item Value Reference Range Comments POC-GLUCOSE METER (BEAKER) 205 mg/dL 70-110 TESTED AT [address] (test tteg=6408) [facility] [address] PROTHROMBIN [id number] 16:18:00 Test Item Value Reference Range Comments PROTIME (BEAKER) (test zple=186) 17.4 seconds 11.7-14.7 INR (BEAKER) (test lnoh=470) 1.4 <=5.9 RECOMMENDED COUMADIN/WARFARIN INR THERAPY RANGESSTANDARD DOSE: 2.0 - 3.0 Includes: PROPHYLAXIS forvenous thrombosis, systemic embolization; TREATMENT for venous thrombosis and/or pulmonary embolus.HIGH RISK: Target INR is 2.5-3.5 for patients with mechanical heart valves.URINALYSIS W/ [id number] 15 :46:00 Test Item Value Reference Range Comments COLOR (BEAKER) (test rzlz=221) Yellow CLARITY (BEAKER) (test lisj=480) Hazy SPECIFIC GRAVITY UA (BEAKER) (test liun=145) 1.024 1.001-1.035 PH UA (BEAKER) (test qfnt=801) 5.0 5.0-8.0 PROTEIN UA (BEAKER) (test bqgy=914) 10 mg/dL Negative GLUCOSE UA (BEAKER) (test cdtq=959) Negative Negative KETONES UA (BEAKER) (test ckar=795) Negative Negative BILIRUBIN UA (BEAKER) (test fxic=599) Negative Negative BLOOD UA (BEAKER) (test kfim=365) Small Negative NITRITE UA (BEAKER) (test rdio=302) Negative Negative LEUKOCYTE ESTERASE UA (BEAKER) (test tych=990) Moderate Negative UROBILINOGEN UA (BEAKER) (test aaev=373) 0.2 mg/dL 0.2-1.0 RBC UA (BEAKER) (test tqlz=504) 5 /HPF WBC UA (BEAKER) (test bqao=777) 22 /HPF BACTERIA (BEAKER) (test ftmn=293) Rare SQUAMOUS EPITHELIAL (BEAKER) (test owiy=091) 1 /HPF SOURCE(BEAKER) (test ycgh=4911) HEPATIC FUNCTION [id number] 12:12:00 Test Item Value Reference Range Comments TOTAL PROTEIN (BEAKER) (test ypoz=041) 5.8 gm/dL 6.0-8.3 ALBUMIN (BEAKER) (test gdml=3937) 2.7 g/dL 3.5-5.0 BILIRUBIN TOTAL (BEAKER) (test hxnb=716) 2.4 mg/dL 0.2-1.2 BILIRUBIN DIRECT (BEAKER) (test flqo=913) 0.6 mg/dL 0.1-0.5 ALKALINE PHOSPHATASE (BEAKER) (test powg=698) 97 U/L 40-150 AST (SGOT) (BEAKER) (test vqzp=812) 30 U/L 5-34 ALT (SGPT) (BEAKER) (test spda=445) 13 U/L 6-55 Specimen slightly ictericPOCT-GLUCOSE [id number] 08:27:00 Test Item Value Reference Range Comments POC-GLUCOSE METER (BEAKER) 171 mg/dL 70-110 TESTED AT [address] (test xuxi=5398) [facility] [address] [id number] 03:37:00 Test Item Value Reference Range Comments PHOSPHORUS (BEAKER) (test lhmj=766) 3.0 mg/dL 2.3-4.7 [id number] 03:37:00 Test Item Value Reference Range Comments MAGNESIUM (BEAKER) (test cdgs=019) 1.8 mg/dL 1.6-2.6 BASIC METABOLIC [id number] 03:37:00 Test Item Value Reference Range Comments SODIUM (BEAKER) (test 135 meq/L 136-145 hgqa=020) POTASSIUM (BEAKER) (test 4.6 meq/L 3.5-5.1 jxae=204) CHLORIDE (BEAKER) (test 104 meq/L 98-107 fyrg=247) CO2 (BEAKER) (test 23 meq/L 22-29 rjdr=408) BLOOD UREA NITROGEN 22 mg/dL 7-21 (BEAKER) (test oiel=658) CREATININE (BEAKER) (test 1.15 mg/dL 0.57-1.25 kgrg=622) GLUCOSE RANDOM (BEAKER) 162 mg/dL 70-105 (test ytvs=114) CALCIUM (BEAKER) (test 8.3 mg/dL 8.4-10.2 harr=886) EGFR (BEAKER) (test 63 mL/min/1.73 sq m ESTIMATED GFR IS NOT eqhq=3424) ACCURATE CREATININE CLEARANCE IN PREDICTING GLOMERULAR FILTRATION RATE. ESTIMATED GFR IS NOT APPLICABLE FOR DIALYSIS PATIENTS. Specimen slightly ictericCBC W/PLT COUNT & AUTO [id number] 03:32 :00 Test Item Value Reference Range Comments WHITE BLOOD CELL COUNT (BEAKER) (test coik=270) 7.7 K/ L 4.0-10.0 RED BLOOD CELL COUNT (BEAKER) (test oljd=695) 2.96 M/ L 4.20-5.80 HEMOGLOBIN (BEAKER) (test qtyb=397) 9.1 GM/DL 13.0-16.8 HEMATOCRIT (BEAKER) (test uzva=964) 26.7 % 40.0-50.0 MEAN CORPUSCULAR VOLUME (BEAKER) (test ilwv=422) 90.2 fL 82.0-98.0 MEAN CORPUSCULAR HEMOGLOBIN (BEAKER) (test 30.8 pg 27.0-33.0 ejrt=471) MEAN CORPUSCULAR HEMOGLOBIN CONC (BEAKER) (test 34.2 GM/DL 32.0-36.0 fpgp=113) RED CELL DISTRIBUTION WIDTH (BEAKER) (test 17.2 % 10.3-14.2 ysnp=247) PLATELET COUNT (BEAKER) (test iitv=427) 50 K/CU MM 150-430 MEAN PLATELET VOLUME (BEAKER) (test luyu=719) 8.2 fL 6.5-10.5 NUCLEATED RED BLOOD CELLS (BEAKER) (test 0 /100 WBC 0-0 isww=628) NEUTROPHILS RELATIVE PERCENT (BEAKER) (test 80 % vcpx=568) LYMPHOCYTES RELATIVE PERCENT (BEAKER) (test 5 % ggzv=161) MONOCYTES RELATIVE PERCENT (BEAKER) (test 10 % pamy=069) EOSINOPHILS RELATIVE PERCENT (BEAKER) (test 5 % gral=461) BASOPHILS RELATIVE PERCENT (BEAKER) (test 0 % ueib=516) NEUTROPHILS ABSOLUTE COUNT (BEAKER) (test 6.17 K/ L 1.80-8.00 nuuq=080) LYMPHOCYTES ABSOLUTE COUNT (BEAKER) (test 0.38 K/ L 1.48-4.50 mhgu=508) MONOCYTES ABSOLUTE COUNT (BEAKER) (test nsfw=445) 0.75 K/ L 0.00-1.30 EOSINOPHILS ABSOLUTE COUNT (BEAKER) (test 0.36 K/ L 0.00-0.50 ajvj=444) BASOPHILS ABSOLUTE COUNT (BEAKER) (test xfck=874) 0.02 K/ L 0.00-0.20 0.00CALCIUM, [id number] 03:29:00 Test Item Value Reference Range Comments CALCIUM IONIZED (BEAKER) (test hymh=232) 1.06 mmol/L 1.12-1.27 PH, BLOOD (BEAKER) (test jeky=0460) 7.41 POCT-GLUCOSE [id number] 21:59:00 Test Item Value Reference Range Comments POC-GLUCOSE METER (BEAKER) 181 mg/dL 70-[address] [facility] [address] [facility] (test btfo=7785) [facility] [address] BLOOD GAS, [id number] 10:35:00 Test Item Value Reference Range Comments PH ARTERIAL (BEAKER) (test expq=133) 7.41 7.35-7.45 PCO2 ARTERIAL (BEAKER) (test zvkq=575) 40 mmHg 35-45 PO2 ARTERIAL (BEAKER) (test rawj=660) 231 mmHg 80-90 O2 SATURATION ARTERIAL (BEAKER) (test xvha=225) 99.5 % 96.0-97.0 HCO3 ARTERIAL (BEAKER) (test gapx=381) 25 mmol/L 21-29 BASE EXCESS ARTERIAL (BEAKER) (test kpdu=474) 0.1 mmol/L -2.0-3.0 PATIENT TEMPERATURE (BEAKER) (test cwfk=2132) 37.0 C FIO2 (BEAKER) (test ncwz=3834) 21.0 % SODIUM NA-STAT [id number] 10:35:00 Test Item Value Reference Range Comments SODIUM (BEAKER) (test rmea=182) 132 meq/L 135-148 HGB/HCT (H&H) - STAT [id number] 10:35:00 Test Item Value Reference Range Comments HEMOGLOBIN (BEAKER) (test wpdc=907) 7.6 g/dL 13.0-16.8 HEMATOCRIT (BEAKER) (test ieyc=264) 22.0 % 40.0-50.0 GLUCOSE-STAT [id number] 10:34:00 Test Item Value Reference Range Comments GLUCOSE RANDOM (BEAKER) (test pfxu=342) 99 mg/dL 70-110 POTASSIUM-STAT [id number] 10:34:00 Test Item Value Reference Range Comments POTASSIUM (BEAKER) (test ethw=407) 3.5 meq/L 3.6-5.5 [id number] 10:31:00 Test Item Value Reference Range Comments ACTIVATED CLOTTING TIME [address] [facility] [address] (BEAKER) (test zisr=975) [facility] [address] [id number] 10:05:00 Test Item Value Reference Range Comments ACTIVATED CLOTTING TIME 286 sec TESTED AT [place] [id number] (BEAKER) (test qrrz=167) [facility] [address] POCT-GLUCOSE [id number] 09:51:00 Test Item Value Reference Range Comments POC-GLUCOSE METER (BEAKER) 100 mg/dL 70-110 TESTED AT [address] (test ofon=9871) [facility] [address] BLOOD GAS, [id number] 08:39:00 Test Item Value Reference Range Comments PH ARTERIAL (BEAKER) (test vthu=026) 7.45 7.35-7.45 PCO2 ARTERIAL (BEAKER) (test vubj=541) 39 mmHg 35-45 PO2 ARTERIAL (BEAKER) (test dnht=669) 424 mmHg 80-90 O2 SATURATION ARTERIAL (BEAKER) (test xmgw=585) 99.8 % 96.0-97.0 HCO3 ARTERIAL (BEAKER) (test efcl=579) 26 mmol/L 21-29 BASE EXCESS ARTERIAL (BEAKER) (test kxmj=581) 2.1 mmol/L -2.0-3.0 PATIENT TEMPERATURE (BEAKER) (test rfzg=2961) 37.0 C FIO2 (BEAKER) (test fvez=6498) 100.0 % SODIUM NA-STAT [id number] 08:39:00 Test Item Value Reference Range Comments SODIUM (BEAKER) (test ktym=049) 132 meq/L 135-148 GLUCOSE-STAT [id number] 08:39:00 Test Item Value Reference Range Comments GLUCOSE RANDOM (BEAKER) (test cthp=883) 131 mg/dL 70-110 HGB/HCT (H&H) - STAT [id number] 08:39:00 Test Item Value Reference Range Comments HEMOGLOBIN (BEAKER) (test jusc=006) 8.5 g/dL 13.0-16.8 HEMATOCRIT (BEAKER) (test ofls=659) 25.0 % 40.0-50.0 POTASSIUM-STAT [id number] 08:38:00 Test Item Value Reference Range Comments POTASSIUM (BEAKER) (test cdaf=613) 3.6 meq/L 3.6-5.5 POCT-GLUCOSE [id number] 07:47:00 Test Item Value Reference Range Comments POC-GLUCOSE METER (BEAKER) 70 mg/dL 70-110 TESTED AT [address] (test ckse=2119) [facility] [address] [id number] 04:07:00 Test Item Value Reference Range Comments MAGNESIUM (BEAKER) (test vqon=433) 2.1 mg/dL 1.6-2.6 [id number] 04:07:00 Test Item Value Reference Range Comments PHOSPHORUS (BEAKER) (test uhqh=018) 2.6 mg/dL 2.3-4.7 CALCIUM, [id number] 04:01:00 Test Item Value Reference Range Comments CALCIUM IONIZED (BEAKER) (test zmcu=540) 1.11 mmol/L 1.12-1.27 PH, BLOOD (BEAKER) (test tghv=0125) 7.40 BASIC METABOLIC [id number] 04:00:00 Test Item Value Reference Range Comments SODIUM (BEAKER) (test 133 meq/L 136-145 kfyy=393) POTASSIUM (BEAKER) (test 4.0 meq/L 3.5-5.1 cwvg=002) CHLORIDE (BEAKER) (test 101 meq/L 98-107 gtpw=710) CO2 (BEAKER) (test 26 meq/L 22-29 vdrl=069) BLOOD UREA NITROGEN 21 mg/dL 7-21 (BEAKER) (test zkte=784) CREATININE (BEAKER) (test 1.11 mg/dL 0.57-1.25 bfma=003) GLUCOSE RANDOM (BEAKER) 141 mg/dL 70-105 (test azar=963) CALCIUM (BEAKER) (test 8.3 mg/dL 8.4-10.2 ugja=365) EGFR (BEAKER) (test 66 mL/min/1.73 sq m ESTIMATED GFR IS NOT uukd=7319) ACCURATE CREATININE CLEARANCE IN PREDICTING GLOMERULAR FILTRATION RATE. ESTIMATED GFR IS NOT APPLICABLE FOR DIALYSIS PATIENTS. CBC W/PLT COUNT & AUTO [id number] 03:40:00 Test Item Value Reference Range Comments WHITE BLOOD CELL COUNT (BEAKER) (test liac=665) 4.6 K/ L 4.0-10.0 RED BLOOD CELL COUNT (BEAKER) (test zyxq=241) 3.00 M/ L 4.20-5.80 HEMOGLOBIN (BEAKER) (test pztd=391) 9.0 GM/DL 13.0-16.8 HEMATOCRIT (BEAKER) (test tlev=490) 26.5 % 40.0-50.0 MEAN CORPUSCULAR VOLUME (BEAKER) (test jmiz=529) 88.4 fL 82.0-98.0 MEAN CORPUSCULAR HEMOGLOBIN (BEAKER) (test 29.9 pg 27.0-33.0 ncdj=897) MEAN CORPUSCULAR HEMOGLOBIN CONC (BEAKER) (test 33.8 GM/DL 32.0-36.0 xasr=397) RED CELL DISTRIBUTION WIDTH (BEAKER) (test 17.7 % 10.3-14.2 snpv=600) PLATELET COUNT (BEAKER) (test atdy=015) 50 K/CU MM 150-430 MEAN PLATELET VOLUME (BEAKER) (test aeef=417) 8.5 fL 6.5-10.5 NUCLEATED RED BLOOD CELLS (BEAKER) (test 0 /100 WBC 0-0 ethy=471) NEUTROPHILS RELATIVE PERCENT (BEAKER) (test 68 % yzfu=828) LYMPHOCYTES RELATIVE PERCENT (BEAKER) (test 8 % layn=100) MONOCYTES RELATIVE PERCENT (BEAKER) (test 13 % tsjc=132) EOSINOPHILS RELATIVE PERCENT (BEAKER) (test 10 % oxxw=597) BASOPHILS RELATIVE PERCENT (BEAKER) (test 0 % jazj=420) NEUTROPHILS ABSOLUTE COUNT (BEAKER) (test 3.10 K/ L 1.80-8.00 udcz=082) LYMPHOCYTES ABSOLUTE COUNT (BEAKER) (test 0.38 K/ L 1.48-4.50 zdkw=800) MONOCYTES ABSOLUTE COUNT (BEAKER) (test qhhp=600) 0.60 K/ L 0.00-1.30 EOSINOPHILS ABSOLUTE COUNT (BEAKER) (test 0.47 K/ L 0.00-0.50 igao=702) BASOPHILS ABSOLUTE COUNT (BEAKER) (test vnat=420) 0.00 K/ L 0.00-0.20 0.00POCT-GLUCOSE [id number] 22:30:00 Test Item Value Reference Range Comments POC-GLUCOSE METER (BEAKER) 235 mg/dL 70-110 TESTED AT [address] (test lpcn=7376) [facility] [address] POCT-GLUCOSE [id number] 17:54:00 Test Item Value Reference Range Comments POC-GLUCOSE METER (BEAKER) 228 mg/dL 70-110 TESTED AT [address] (test fygh=1564) [facility] [address] POCT-GLUCOSE [id number] 12:48:00 Test Item Value Reference Range Comments POC-GLUCOSE METER (BEAKER) 125 mg/dL 70-110 TESTED AT [address] (test friz=8749) [facility] [address] POCT-GLUCOSE [id number] 08:10:00 Test Item Value Reference Range Comments POC-GLUCOSE METER (BEAKER) 222 mg/dL 70-110 TESTED AT [address] (test fzme=3687) [facility] [address] POCT-GLUCOSE [id number] 05:24:00 Test Item Value Reference Range Comments POC-GLUCOSE METER (BEAKER) 130 mg/dL 70-110 TESTED AT [address] (test dwwd=9055) [facility] [address] CALCIUM, [id number] 04:47:00 Test Item Value Reference Range Comments CALCIUM IONIZED (BEAKER) (test neei=278) 1.10 mmol/L 1.12-1.27 PH, BLOOD (BEAKER) (test agvp=5338) 7.50 CBC W/PLT COUNT & AUTO [id number] 04:46:00 Test Item Value Reference Range Comments WHITE BLOOD CELL COUNT (BEAKER) (test ktnv=355) 4.1 K/ L 4.0-10.0 RED BLOOD CELL COUNT (BEAKER) (test idhc=039) 2.85 M/ L 4.20-5.80 HEMOGLOBIN (BEAKER) (test rptm=338) 8.2 GM/DL 13.0-16.8 HEMATOCRIT (BEAKER) (test ugsv=736) 25.6 % 40.0-50.0 MEAN CORPUSCULAR VOLUME (BEAKER) (test ceah=606) 89.8 fL 82.0-98.0 MEAN CORPUSCULAR HEMOGLOBIN (BEAKER) (test 28.7 pg 27.0-33.0 jzja=348) MEAN CORPUSCULAR HEMOGLOBIN CONC (BEAKER) (test 32.0 GM/DL 32.0-36.0 xiyg=508) RED CELL DISTRIBUTION WIDTH (BEAKER) (test 17.4 % 10.3-14.2 dzry=813) PLATELET COUNT (BEAKER) (test arkm=591) 55 K/CU MM 150-430 MEAN PLATELET VOLUME (BEAKER) (test qotw=219) 8.4 fL 6.5-10.5 NUCLEATED RED BLOOD CELLS (BEAKER) (test 0 /100 WBC 0-0 mijz=315) NEUTROPHILS RELATIVE PERCENT (BEAKER) (test 68 % nivp=133) LYMPHOCYTES RELATIVE PERCENT (BEAKER) (test 10 % bpwc=624) MONOCYTES RELATIVE PERCENT (BEAKER) (test 12 % ogni=884) EOSINOPHILS RELATIVE PERCENT (BEAKER) (test 10 % npmi=006) BASOPHILS RELATIVE PERCENT (BEAKER) (test 0 % fins=596) NEUTROPHILS ABSOLUTE COUNT (BEAKER) (test 2.80 K/ L 1.80-8.00 ilic=666) LYMPHOCYTES ABSOLUTE COUNT (BEAKER) (test 0.39 K/ L 1.48-4.50 hyio=123) MONOCYTES ABSOLUTE COUNT (BEAKER) (test njbo=057) 0.51 K/ L 0.00-1.30 EOSINOPHILS ABSOLUTE COUNT (BEAKER) (test 0.40 K/ L 0.00-0.50 harw=850) BASOPHILS ABSOLUTE COUNT (BEAKER) (test tfzs=941) 0.02 K/ L 0.00-0.20 [id number] 04:35:00 Test Item Value Reference Range Comments PHOSPHORUS (BEAKER) (test qbew=099) 2.5 mg/dL 2.3-4.7 [id number] 04:35:00 Test Item Value Reference Range Comments MAGNESIUM (BEAKER) (test ibzr=229) 2.2 mg/dL 1.6-2.6 BASIC METABOLIC [id number] 04:35:00 Test Item Value Reference Range Comments SODIUM (BEAKER) (test 133 meq/L 136-145 drgr=564) POTASSIUM (BEAKER) (test 4.2 meq/L 3.5-5.1 bxyc=709) CHLORIDE (BEAKER) (test 101 meq/L 98-107 jflo=309) CO2 (BEAKER) (test 24 meq/L 22-29 ylyi=289) BLOOD UREA NITROGEN 29 mg/dL 7-21 (BEAKER) (test blmq=999) CREATININE (BEAKER) (test 1.19 mg/dL 0.57-1.25 ojiw=719) GLUCOSE RANDOM (BEAKER) 154 mg/dL 70-105 (test tdvr=219) CALCIUM (BEAKER) (test 8.4 mg/dL 8.4-10.2 qzfy=894) EGFR (BEAKER) (test 61 mL/min/1.73 sq m ESTIMATED GFR IS NOT zpoa=9364) ACCURATE CREATININE CLEARANCE IN PREDICTING GLOMERULAR FILTRATION RATE. ESTIMATED GFR IS NOT APPLICABLE FOR DIALYSIS PATIENTS. HEPATIC FUNCTION [id number] 04:35:00 Test Item Value Reference Range Comments TOTAL PROTEIN (BEAKER) (test lqtu=169) 6.2 gm/dL 6.0-8.3 ALBUMIN (BEAKER) (test avln=5657) 2.9 g/dL 3.5-5.0 BILIRUBIN TOTAL (BEAKER) (test woda=977) 1.0 mg/dL 0.2-1.2 BILIRUBIN DIRECT (BEAKER) (test ygfv=219) 0.6 mg/dL 0.1-0.5 ALKALINE PHOSPHATASE (BEAKER) (test xrhk=395) 114 U/L 40-150 AST (SGOT) (BEAKER) (test vmyp=205) 23 U/L 5-34 ALT (SGPT) (BEAKER) (test fmql=960) 14 U/L 6-55 POCT-GLUCOSE [id number] 21:28:00 Test Item Value Reference Range Comments POC-GLUCOSE METER (BEAKER) 242 mg/dL 70-110 TESTED AT [address] (test jcjl=0698) [place] [address] [id number] 18:04:00 Test Item Value Reference Range Comments PREALBUMIN (BEAKER) (test hrfr=697) 9 mg/dL 14-45 Listed for liver transplant - Nutrition surveillance (hepatology)POCT-GLUCOSE [id number] 17:13:00 Test Item Value Reference Range Comments POC-GLUCOSE METER (BEAKER) 161 mg/dL 70-110 TESTED AT [address] (test nkwq=4739) [place] [id number] POCT-GLUCOSE [id number] 11:14:00 Test Item Value Reference Range Comments POC-GLUCOSE METER (BEAKER) 298 mg/dL 70-110 TESTED AT [address] (test tjcy=3231) [place] [address] POCT-GLUCOSE [id number] 07:38:00 Test Item Value Reference Range Comments POC-GLUCOSE METER (BEAKER) 113 mg/dL 70-110 TESTED AT [address] (test wzhi=8612) [place] [address] [id number] 05:19:00 Test Item Value Reference Range Comments PHOSPHORUS (BEAKER) (test fgzn=923) 2.4 mg/dL 2.3-4.7 [id number] 05:19:00 Test Item Value Reference Range Comments MAGNESIUM (BEAKER) (test mvtp=998) 2.4 mg/dL 1.6-2.6 BASIC METABOLIC [id number] 05:19:00 Test Item Value Reference Range Comments SODIUM (BEAKER) (test 135 meq/L 136-145 jsce=987) POTASSIUM (BEAKER) (test 4.1 meq/L 3.5-5.1 ebdb=097) CHLORIDE (BEAKER) (test 100 meq/L 98-107 yzku=966) CO2 (BEAKER) (test 29 meq/L 22-29 txxm=304) BLOOD UREA NITROGEN 40 mg/dL 7-21 (BEAKER) (test uhkx=003) CREATININE (BEAKER) (test 1.31 mg/dL 0.57-1.25 sgbv=571) GLUCOSE RANDOM (BEAKER) 84 mg/dL 70-105 (test fajg=747) CALCIUM (BEAKER) (test 8.8 mg/dL 8.4-10.2 kqht=106) EGFR (BEAKER) (test 55 mL/min/1.73 sq m ESTIMATED GFR IS NOT nfed=5791) ACCURATE CREATININE CLEARANCE IN PREDICTING GLOMERULAR FILTRATION RATE. ESTIMATED GFR IS NOT APPLICABLE FOR DIALYSIS PATIENTS. HEPATIC FUNCTION [id number] 05:19:00 Test Item Value Reference Range Comments TOTAL PROTEIN (BEAKER) (test vcgo=542) 6.8 gm/dL 6.0-8.3 ALBUMIN (BEAKER) (test wnbz=3084) 3.1 g/dL 3.5-5.0 BILIRUBIN TOTAL (BEAKER) (test semn=085) 1.2 mg/dL 0.2-1.2 BILIRUBIN DIRECT (BEAKER) (test pwrk=119) 0.7 mg/dL 0.1-0.5 ALKALINE PHOSPHATASE (BEAKER) (test ztpl=034) 118 U/L 40-150 AST (SGOT) (BEAKER) (test lebt=951) 30 U/L 5-34 ALT (SGPT) (BEAKER) (test tqof=963) 17 U/L 6-55 B-TYPE NATRIURETIC FACTOR (BNP)2016-09-03 05:18:00 Test Item Value Reference Range Comments B-TYPE NATRIURETIC PEPTIDE (BEAKER) (test 138 pg/mL 0-100 pzaj=826) CBC W/PLT COUNT & AUTO [id number] 05:11:00 Test Item Value Reference Range Comments WHITE BLOOD CELL COUNT (BEAKER) (test ndud=448) 6.5 K/ L 4.0-10.0 RED BLOOD CELL COUNT (BEAKER) (test yivc=359) 2.93 M/ L 4.20-5.80 HEMOGLOBIN (BEAKER) (test wipa=049) 8.6 GM/DL 13.0-16.8 HEMATOCRIT (BEAKER) (test uzqt=796) 25.9 % 40.0-50.0 MEAN CORPUSCULAR VOLUME (BEAKER) (test ueju=819) 88.5 fL 82.0-98.0 MEAN CORPUSCULAR HEMOGLOBIN (BEAKER) (test 29.2 pg 27.0-33.0 ahgj=908) MEAN CORPUSCULAR HEMOGLOBIN CONC (BEAKER) (test 33.0 GM/DL 32.0-36.0 vlse=774) RED CELL DISTRIBUTION WIDTH (BEAKER) (test 18.2 % 10.3-14.2 xldg=977) PLATELET COUNT (BEAKER) (test ndyp=882) 72 K/CU MM 150-430 MEAN PLATELET VOLUME (BEAKER) (test zwbr=367) 7.6 fL 6.5-10.5 NUCLEATED RED BLOOD CELLS (BEAKER) (test 0 /100 WBC 0-0 qafh=470) NEUTROPHILS RELATIVE PERCENT (BEAKER) (test 72 % avmq=453) LYMPHOCYTES RELATIVE PERCENT (BEAKER) (test 8 % fjvo=563) MONOCYTES RELATIVE PERCENT (BEAKER) (test 11 % rqli=835) EOSINOPHILS RELATIVE PERCENT (BEAKER) (test 9 % rodz=453) BASOPHILS RELATIVE PERCENT (BEAKER) (test 1 % xydt=308) NEUTROPHILS ABSOLUTE COUNT (BEAKER) (test 4.69 K/ L 1.80-8.00 wiqv=508) LYMPHOCYTES ABSOLUTE COUNT (BEAKER) (test 0.49 K/ L 1.48-4.50 pwhy=815) MONOCYTES ABSOLUTE COUNT (BEAKER) (test rnjy=920) 0.71 K/ L 0.00-1.30 EOSINOPHILS ABSOLUTE COUNT (BEAKER) (test 0.56 K/ L 0.00-0.50 hnrt=004) BASOPHILS ABSOLUTE COUNT (BEAKER) (test aozp=643) 0.05 K/ L 0.00-0.20 0.00CALCIUM, [id number] 04:57:00 Test Item Value Reference Range Comments CALCIUM IONIZED (BEAKER) (test ohtj=090) 1.10 mmol/L 1.12-1.27 PH, BLOOD (BEAKER) (test jmti=8675) 7.40 POCT-GLUCOSE [id number] 21:19:00 Test Item Value Reference Range Comments POC-GLUCOSE METER (BEAKER) 265 mg/dL 70-110 TESTED AT [address] (test ysng=5132) [place] [id number] POCT-GLUCOSE [id number] 17:33:00 Test Item Value Reference Range Comments POC-GLUCOSE METER (BEAKER) 271 mg/dL 70-110 TESTED AT [address] (test xvfe=2156) [place] [id number] POCT-GLUCOSE [id number] 08:18:00 Test Item Value Reference Range Comments POC-GLUCOSE METER (BEAKER) 130 mg/dL 70-110 TESTED AT [address] (test rtie=0875) [place] [id number] CBC W/PLT COUNT & AUTO [id number] 07:10:00 Test Item Value Reference Range Comments WHITE BLOOD CELL COUNT (BEAKER) (test ssth=660) 10.6 K/ L 4.0-10.0 RED BLOOD CELL COUNT (BEAKER) (test ytpd=936) 3.09 M/ L 4.20-5.80 HEMOGLOBIN (BEAKER) (test bksd=026) 8.9 GM/DL 13.0-16.8 HEMATOCRIT (BEAKER) (test dctv=761) 27.8 % 40.0-50.0 MEAN CORPUSCULAR VOLUME (BEAKER) (test yuks=718) 89.9 fL 82.0-98.0 MEAN CORPUSCULAR HEMOGLOBIN (BEAKER) (test 28.9 pg 27.0-33.0 jkev=955) MEAN CORPUSCULAR HEMOGLOBIN CONC (BEAKER) (test 32.1 GM/DL 32.0-36.0 wowy=042) RED CELL DISTRIBUTION WIDTH (BEAKER) (test 17.6 % 10.3-14.2 bqts=557) PLATELET COUNT (BEAKER) (test wves=215) 79 K/CU MM 150-430 MEAN PLATELET VOLUME (BEAKER) (test xseu=942) 8.4 fL 6.5-10.5 NUCLEATED RED BLOOD CELLS (BEAKER) (test 0 /100 WBC 0-0 rghz=384) NEUTROPHILS RELATIVE PERCENT (BEAKER) (test 87 % vofw=381) LYMPHOCYTES RELATIVE PERCENT (BEAKER) (test 4 % oypk=449) MONOCYTES RELATIVE PERCENT (BEAKER) (test 7 % nrie=318) EOSINOPHILS RELATIVE PERCENT (BEAKER) (test 2 % dwzv=931) BASOPHILS RELATIVE PERCENT (BEAKER) (test 0 % tsye=484) NEUTROPHILS ABSOLUTE COUNT (BEAKER) (test 9.20 K/ L 1.80-8.00 qjit=329) LYMPHOCYTES ABSOLUTE COUNT (BEAKER) (test 0.45 K/ L 1.48-4.50 iewa=769) MONOCYTES ABSOLUTE COUNT (BEAKER) (test qxuy=436) 0.70 K/ L 0.00-1.30 EOSINOPHILS ABSOLUTE COUNT (BEAKER) (test 0.25 K/ L 0.00-0.50 zkmz=230) BASOPHILS ABSOLUTE COUNT (BEAKER) (test tmzl=061) 0.02 K/ L 0.00-0.20 0.00HEPATIC FUNCTION [id number] 06:52:00 Test Item Value Reference Range Comments TOTAL PROTEIN (BEAKER) (test bfcj=295) 6.6 gm/dL 6.0-8.3 ALBUMIN (BEAKER) (test sgfe=0826) 3.0 g/dL 3.5-5.0 BILIRUBIN TOTAL (BEAKER) (test jpbh=331) 1.7 mg/dL 0.2-1.2 BILIRUBIN DIRECT (BEAKER) (test acsr=517) 0.8 mg/dL 0.1-0.5 ALKALINE PHOSPHATASE (BEAKER) (test sgus=640) 116 U/L 40-150 AST (SGOT) (BEAKER) (test bieh=950) 29 U/L 5-34 ALT (SGPT) (BEAKER) (test jagd=184) 18 U/L 6-55 BASIC METABOLIC [id number] 06:52:00 Test Item Value Reference Range Comments SODIUM (BEAKER) (test 136 meq/L 136-145 vyiv=773) POTASSIUM (BEAKER) (test 3.7 meq/L 3.5-5.1 zmrx=185) CHLORIDE (BEAKER) (test 98 meq/L 98-107 ceez=473) CO2 (BEAKER) (test 26 meq/L 22-29 iswu=346) BLOOD UREA NITROGEN 52 mg/dL 7-21 (BEAKER) (test xnli=042) CREATININE (BEAKER) (test 1.52 mg/dL 0.57-1.25 qxzb=936) GLUCOSE RANDOM (BEAKER) 131 mg/dL 70-105 (test pdmw=981) CALCIUM (BEAKER) (test 8.8 mg/dL 8.4-10.2 rilt=580) EGFR (BEAKER) (test 46 mL/min/1.73 sq m ESTIMATED GFR IS NOT frye=4830) ACCURATE CREATININE CLEARANCE IN PREDICTING GLOMERULAR FILTRATION RATE. ESTIMATED GFR IS NOT APPLICABLE FOR DIALYSIS PATIENTS. URINALYSIS W/ [id number] 05:23:00 Test Item Value Reference Range Comments COLOR (BEAKER) (test vbfq=307) Yellow CLARITY (BEAKER) (test fllv=414) Clear SPECIFIC GRAVITY UA (BEAKER) (test 1.011 1.001-1.035 hcgw=372) PH UA (BEAKER) (test drxw=779) 5.0 5.0-8.0 PROTEIN UA (BEAKER) (test dhxa=552) Negative Negative GLUCOSE UA (BEAKER) (test aspr=318) Negative Negative KETONES UA (BEAKER) (test pjog=762) Negative Negative BILIRUBIN UA (BEAKER) (test tjdd=328) Negative Negative BLOOD UA (BEAKER) (test smlr=051) Negative Negative NITRITE UA (BEAKER) (test aulw=309) Negative Negative LEUKOCYTE ESTERASE UA (BEAKER) (test Negative Negative mrne=203) UROBILINOGEN UA (BEAKER) (test degx=245) 0.2 mg/dL 0.2-1.0 RBC UA (BEAKER) (test ldrk=097) 1 /HPF WBC UA (BEAKER) (test saef=001) < /HPF BACTERIA (BEAKER) (test vgyz=271) Rare HYALINE CASTS (BEAKER) (test gced=849) 43 /LPF AMORPHOUS CRYSTALS (BEAKER) (test Rare hfyv=8826) SOURCE(BEAKER) (test dglf=0101) Urine, Clean Catch [id number] 20:58:00 Test Item Value Reference Range Comments PROTIME (BEAKER) (test melt=874) 16.0 seconds 11.7-14.7 INR (BEAKER) (test akfu=943) 1.3 <=5.9 PARTIAL THROMBOPLASTIN TIME (BEAKER) (test 38.8 seconds 22.5-36.0 ztsa=635) RECOMMENDED COUMADIN/WARFARIN INR THERAPY RANGESSTANDARD DOSE: 2.0 - 3.0 Includes: PROPHYLAXIS forvenous thrombosis, systemic embolization; TREATMENT for venous thrombosis and/or pulmonary embolus.HIGH RISK: Target INR is 2.5-3.5 for patients with mechanical heart valves.COMPREHENSIVE METABOLIC [id number] 20:53:00 Test Item Value Reference Range Comments TOTAL PROTEIN (BEAKER) 8.3 gm/dL 6.0-8.3 (test tzcc=682) ALBUMIN (BEAKER) (test 3.8 g/dL 3.5-5.0 dlvu=9082) ALKALINE PHOSPHATASE 152 U/L 40-150 (BEAKER) (test qsgt=271) BILIRUBIN TOTAL (BEAKER) 1.7 mg/dL 0.2-1.2 (test pusl=563) SODIUM (BEAKER) (test 132 meq/L 136-145 ixla=950) POTASSIUM (BEAKER) (test 3.8 meq/L 3.5-5.1 nrsx=417) CHLORIDE (BEAKER) (test 93 meq/L 98-107 jfcb=485) CO2 (BEAKER) (test 29 meq/L 22-29 jdpa=864) BLOOD UREA NITROGEN 49 mg/dL 7-21 (BEAKER) (test bzqg=031) CREATININE (BEAKER) (test 1.94 mg/dL 0.57-1.25 sadd=222) GLUCOSE RANDOM (BEAKER) 256 mg/dL 70-105 (test zojl=389) CALCIUM (BEAKER) (test 9.7 mg/dL 8.4-10.2 sesb=692) AST (SGOT) (BEAKER) (test 29 U/L 5-34 lqqf=809) ALT (SGPT) (BEAKER) (test 19 U/L 6-55 folf=346) EGFR (BEAKER) (test 35 mL/min/1.73 sq m ESTIMATED GFR IS NOT flfj=2650) ACCURATE CREATININE CLEARANCE IN PREDICTING GLOMERULAR FILTRATION RATE. ESTIMATED GFR IS NOT APPLICABLE FOR DIALYSIS PATIENTS. CBC W/PLT COUNT & AUTO [id number] 20:48:00 Test Item Value Reference Range Comments WHITE BLOOD CELL COUNT (BEAKER) (test yxte=977) 10.7 K/ L 4.0-10.0 RED BLOOD CELL COUNT (BEAKER) (test ltfy=207) 3.72 M/ L 4.20-5.80 HEMOGLOBIN (BEAKER) (test hxeu=218) 10.6 GM/DL 13.0-16.8 HEMATOCRIT (BEAKER) (test hxik=751) 33.2 % 40.0-50.0 MEAN CORPUSCULAR VOLUME (BEAKER) (test bsfy=381) 89.2 fL 82.0-98.0 MEAN CORPUSCULAR HEMOGLOBIN (BEAKER) (test 28.5 pg 27.0-33.0 pfkr=377) MEAN CORPUSCULAR HEMOGLOBIN CONC (BEAKER) (test 32.0 GM/DL 32.0-36.0 pdpf=657) RED CELL DISTRIBUTION WIDTH (BEAKER) (test 17.9 % 10.3-14.2 tcbe=118) PLATELET COUNT (BEAKER) (test cnxf=067) 92 K/CU MM 150-430 MEAN PLATELET VOLUME (BEAKER) (test jeig=203) 8.4 fL 6.5-10.5 NUCLEATED RED BLOOD CELLS (BEAKER) (test 0 /100 WBC 0-0 nkve=554) NEUTROPHILS RELATIVE PERCENT (BEAKER) (test 91 % wayy=339) LYMPHOCYTES RELATIVE PERCENT (BEAKER) (test 2 % yjvk=751) MONOCYTES RELATIVE PERCENT (BEAKER) (test 5 % yexp=940) EOSINOPHILS RELATIVE PERCENT (BEAKER) (test 1 % vhvq=239) BASOPHILS RELATIVE PERCENT (BEAKER) (test 1 % vggd=477) NEUTROPHILS ABSOLUTE COUNT (BEAKER) (test 9.77 K/ L 1.80-8.00 tqcn=490) LYMPHOCYTES ABSOLUTE COUNT (BEAKER) (test 0.22 K/ L 1.48-4.50 eboi=181) MONOCYTES ABSOLUTE COUNT (BEAKER) (test gzmd=303) 0.59 K/ L 0.00-1.30 EOSINOPHILS ABSOLUTE COUNT (BEAKER) (test 0.06 K/ L 0.00-0.50 lkde=769) BASOPHILS ABSOLUTE COUNT (BEAKER) (test pyjx=010) 0.09 K/ L 0.00-0.20 0.00POCT-GLUCOSE [id number] 12:02:00 Test Item Value Reference Range Comments POC-GLUCOSE METER (BEAKER) 260 mg/dL 70-110 TESTED AT [address] (test pulv=5852) [facility] [id number] POCT-GLUCOSE [id number] 08:27:00 Test Item Value Reference Range Comments POC-GLUCOSE METER (BEAKER) 122 mg/dL 70-110 TESTED AT [address] (test uqeo=9074) [facility] [id number] CBC W/PLT COUNT & AUTO [id number] 07:02:00 Test Item Value Reference Range Comments WHITE BLOOD CELL COUNT (BEAKER) (test tfuj=941) 4.9 K/ L 4.0-10.0 RED BLOOD CELL COUNT (BEAKER) (test bgth=921) 2.93 M/ L 4.20-5.80 HEMOGLOBIN (BEAKER) (test ajpn=627) 8.4 GM/DL 13.0-16.8 HEMATOCRIT (BEAKER) (test dzjl=109) 26.0 % 40.0-50.0 MEAN CORPUSCULAR VOLUME (BEAKER) (test cwzt=437) 88.7 fL 82.0-98.0 MEAN CORPUSCULAR HEMOGLOBIN (BEAKER) (test 28.7 pg 27.0-33.0 vzrl=899) MEAN CORPUSCULAR HEMOGLOBIN CONC (BEAKER) (test 32.4 GM/DL 32.0-36.0 gkvc=741) RED CELL DISTRIBUTION WIDTH (BEAKER) (test 17.4 % 10.3-14.2 xvbx=958) PLATELET COUNT (BEAKER) (test ajbu=594) 54 K/CU MM 150-430 MEAN PLATELET VOLUME (BEAKER) (test hxbo=613) 9.5 fL 6.5-10.5 NUCLEATED RED BLOOD CELLS (BEAKER) (test 0 /100 WBC 0-0 jlca=814) NEUTROPHILS RELATIVE PERCENT (BEAKER) (test 74 % gipk=730) LYMPHOCYTES RELATIVE PERCENT (BEAKER) (test 8 % ohwi=213) MONOCYTES RELATIVE PERCENT (BEAKER) (test 11 % lygq=233) EOSINOPHILS RELATIVE PERCENT (BEAKER) (test 6 % vhdn=628) BASOPHILS RELATIVE PERCENT (BEAKER) (test 1 % vceh=980) NEUTROPHILS ABSOLUTE COUNT (BEAKER) (test 3.63 K/ L 1.80-8.00 jcuh=761) LYMPHOCYTES ABSOLUTE COUNT (BEAKER) (test 0.39 K/ L 1.48-4.50 vqkx=233) MONOCYTES ABSOLUTE COUNT (BEAKER) (test zzig=132) 0.52 K/ L 0.00-1.30 EOSINOPHILS ABSOLUTE COUNT (BEAKER) (test 0.31 K/ L 0.00-0.50 tbrk=245) BASOPHILS ABSOLUTE COUNT (BEAKER) (test sqqy=093) 0.03 K/ L 0.00-0.20 [id number] 06:01:00 Test Item Value Reference Range Comments PHOSPHORUS (BEAKER) (test mqqv=785) 2.7 mg/dL 2.3-4.7 [id number] 06:01:00 Test Item Value Reference Range Comments MAGNESIUM (BEAKER) (test ljdh=318) 2.0 mg/dL 1.6-2.6 BASIC METABOLIC [id number] 06:01:00 Test Item Value Reference Range Comments SODIUM (BEAKER) (test 133 meq/L 136-145 cqth=352) POTASSIUM (BEAKER) (test 4.1 meq/L 3.5-5.1 nokv=526) CHLORIDE (BEAKER) (test 102 meq/L 98-107 ulte=419) CO2 (BEAKER) (test 22 meq/L 22-29 gpeg=057) BLOOD UREA NITROGEN 28 mg/dL 7-21 (BEAKER) (test rijs=659) CREATININE (BEAKER) (test 1.17 mg/dL 0.57-1.25 ejqe=103) GLUCOSE RANDOM (BEAKER) 101 mg/dL 70-105 (test dhav=264) CALCIUM (BEAKER) (test 8.7 mg/dL 8.4-10.2 jpcp=185) EGFR (BEAKER) (test 62 mL/min/1.73 sq m ESTIMATED GFR IS NOT vuik=0926) ACCURATE CREATININE CLEARANCE IN PREDICTING GLOMERULAR FILTRATION RATE. ESTIMATED GFR IS NOT APPLICABLE FOR DIALYSIS PATIENTS. B-TYPE NATRIURETIC FACTOR (BNP)2016-08-29 06:00:00 Test Item Value Reference Range Comments B-TYPE NATRIURETIC PEPTIDE (BEAKER) (test 253 pg/mL 0-100 qdyj=861) CALCIUM, [id number] 05:58:00 Test Item Value Reference Range Comments CALCIUM IONIZED (BEAKER) (test prpp=023) 1.04 mmol/L 1.12-1.27 PH, BLOOD ([facility]) (test divp=9085) 7.43 POCT-GLUCOSE [id number] 22:14:00 Test Item Value Reference Range Comments POC-GLUCOSE METER (BEAKER) 236 mg/dL 70-110 TESTED AT [address] (test mwlw=9265) [place] [id number] POCT-GLUCOSE [id number] 16:54:00 Test Item Value Reference Range Comments POC-GLUCOSE METER ([facility]) 185 mg/dL 70-110 TESTED AT [address] (test vppj=4243) [place] [id number]
--- NOTE | 2018-10-04 19:26 | RAD REPORT ---
EXAM DESCRIPTION: Arron Single View10/04/2018 7:08 pm CLINICAL HISTORY: sob COMPARISON: September 28, 2018 FINDINGS: The lungs appear clear of acute infiltrate. The heart is moderately enlarged. Postsurgical changes involve the chest IMPRESSION: No acute abnormalities displayed
[2018-10-04 19:28] LABS: Absolute Lymphocytes (CBC) 0.2 K/uL (0.7-4.9); Absolute Monocytes 0.3 K/uL (0.1-1.3); Absolute Neutrophil 4.9 K/uL (1.8-8.0); Basophils % 0.3 % (0-1.3); Eosinophils % 0.2 % (0-4.4); Hematocrit 25.3 % (39.6-49.0); Lymphocytes % 3.4 % (15.3-44.8); MPV 11.1 fL (7.6-11.3); Monocytes % 5.7 % (3.3-12.3); RBC Red Blood Cell Count 2.68 M/uL (4.33-5.43)
--- NOTE | 2018-10-04 19:33 | RAD REPORT ---
EXAM DESCRIPTION: CT - Head Brain Wo Cont - 10/04/2018 7:07 pm CLINICAL HISTORY: Alteration of awareness/confusion COMPARISON: None TECHNIQUE: Computed axial tomography of the head was obtained. IV contrast was not requested. All CT scans are performed using dose optimization technique as appropriate and may include automated exposure control or mA/KV adjustment according to patient size. FINDINGS: An intracranial bleed is not seen . The ventricles are normal in caliber. No extra-axial fluid collection is noted. Fluid within the sinuses/ mastoids is not seen. IMPRESSION: No acute intracranial abnormality is seen. If patient's symptoms persist MRI of the bra in would be recommended.
[2018-10-04 19:42] LABS: Protime INR 1.42
[2018-10-04 19:43] LABS: Arterial Blood Carboxyhemoglob 2.1 % (0-1.5); Blood Gas Oxyhemoglobin 95.7 % (94-97); Blood O2 Saturation 98.8 % (92-98.5)
[2018-10-04 19:48] LABS: Albumin 3.2 g/dL (3.4-5.0); Bilirubin Direct 0.8 mg/dL (0-0.2); Bilirubin Total 2.1 mg/dL (0.2-1.0); Potassium 4.1 mmol/L (3.5-5.1); Protein, Total 6.5 g/dL (6.4-8.2); Troponin (Emerg Dept Use Only) 0.02 ng/mL (0.0-0.045)
[2018-10-04] MEDS ORDERED: LACTULOSE 20 GM/30 ML UCUP ONE (21:02)
[2018-10-04 21:03] LABS: Anisocytosis 2+; Blood Morphology Comment NOTED (NOT SEEN); Ovalocytes SLIGHT; Platelet Estimate DECR; Poikilocytosis 1+; Polychromasia 1+; Teardrop Cell FEW; Urine White Blood Cell Casts OK
--- NOTE | 2018-10-04 21:35 | EDPHYS ---
Physician Documentation [facility] Name: Elfego Barros Jr Age: 68 yrs Sex: Male : 1950 Arrival Date: 10/04/2018 Time: 18:34 Bed 5 Private MD: ED Physician Syed Smith HPI: 10/04 19:08 This 68 yrs old Male presents to ER via EMS with complaints of Altered Mental jr8 Status. 19:08 The patient presents with decreased mental status, decreased responsiveness. Onset: The jr8 symptoms/episode began/occurred acutely, today. Possible causes: unknown. Associated signs and symptoms: The patient has no apparent associated signs or symptoms. Current symptoms: In the emergency department the patient's symptoms are unchanged from the initial presentation. Patient's baseline: Neuro: alert and fully oriented, Motor: no deficits, Ambulation: walks without assistance, Speech: normal. The patient has not experienced similar symptoms in the past. The patient has been recently seen by a physician:. stated that patient has history of cirrhosis of liver. Recently was released this past Saturday from [facility] for varices and colon bleed. Was fine last night. Today has had mental status decline that is getting worse. stated that he has never been this bad in past . Historical: - Allergies: 18:38 Codeine; ss 18:38 Sscafnz-Glx-Lzb Reductase Inhibitors; ss 18:38 Tape; ss 19:05 bandaids; ak1 - Home Meds: 19:05 celdinir- 300mg 2x daily [Active]; Centrum Oral [Active]; cholestipol 50mg 2-3x daily ak1 [Active]; Citracal Oral [Active]; clotrimazole 1 % Topical soln 2 times per day [Active]; doxycycline hyclate 100 mg Oral cap 1 cap 2 times per day [Active]; fluocinolone 0.01 % Topical crea 2 times per day [Active]; furosemide 20 mg Oral tab 1 tab once daily [Active]; Humalog 100 unit/mL Sub-Q crtg [Active]; Iron CR Oral 325 mg daily [Active]; Lactulose Oral 6 tps daily [Active]; Lantus 100 unit/mL Sub-Q soln [Active]; Lidoderm 5 % Topical ptmd 1 patch once daily [Active]; Lyrica Oral 1 cap [Active]; Nystatin Oral [Active]; pramipexole 1 mg Oral tab 1 tab twice a day [Active]; Prilosec 20 mg Oral cpDR 1 cap once daily [Active]; spironolactone 25 mg Oral tab 1 tab once daily [Active]; urosodiol- 300mg 2xdaily [Active]; Xifaxan 550 mg Oral tab 1 tab 2 times per day [Active]; Zofran (as hydrochloride) 8 mg Oral tab 1 tab for prn , prn [Active]; - PMHx: 18:38 Diabetes - IDDM; GERD; Hypertension; Cirrhosis; on liver transplant list (7 years); ss - PSHx: 18:38 Hernia repair; ss - Immunization history:: Adult Immunizations up to date. - Social history:: Smoking status: unknown. - Ebola Screening: : Patient denies exposure to infectious person Patient denies travel to an Ebola-affected area in the 21 days before illness onset. ROS: 19:08 Unable to obtain ROS due to altered mental status. jr8 Exam: 19:08 Head/Face: Normocephalic, atraumatic. Eyes: Pupils equal round and reactive to light, jr8 extra-ocular motions intact. Lids and lashes normal. icteric conjunctiva present. Cornea within normal limits. Periorbital areas with no swelling, redness, or edema. ENT: Nares patent. No nasal discharge, no septal abnormalities noted. Oropharynx with no redness, swelling, or masses, exudates, or evidence of obstruction, uvula midline. Mucous membranes moist. Neck: Trachea midline, no thyromegaly or masses palpated, and no cervical lymphadenopathy. Supple, full range of motion Cardiovascular: Tachycardic with a normal S1 and S2. Systolic murmur present. No JVD. No pulse deficits. Respiratory: Lungs have equal breath sounds bilaterally, clear to auscultation and percussion. No rales, rhonchi or wheezes noted. No increased work of breathing, no retractions or nasal flaring. Abdomen/GI: Destendid abdomen with ascites present. No gimace or guarding with palpation Skin: Warm, dry with normal turgor. Normal color with no rashes, no lesions, and no evidence of cellulitis. MS/ Extremity: Pulses equal, no cyanosis. Neurovascular intact. Full, normal range of motion. 19:08 Neuro: Orientation: Not oriented to person, place, time, situation, Mentation: slow to respond, unable to follow commands, Memory: unable to test, Cranial nerves: unable to test, Cerebellar function: unable to test, Motor: moves all fours, Sensation: unable to test, Gait: not tested. seizure activity, is not displayed by the patient. Vital Signs: 18:38 BP 137 / 67; Pulse 105; Resp 20; Temp 97.5(A); Pulse Ox 100% on R/A; ss 19:42 BP 139 / 83; Pulse 101; Resp 21; Temp 97.6; Pulse Ox 100% on R/A; ak1 20:11 BP 133 / 72; Pulse 100; Resp 17; Pulse Ox 100% on R/A; ak1 21:16 BP 131 / 72; Pulse 93; Resp 12; Pulse Ox 100% on R/A; ak1 22:09 BP 142 / 77; Pulse 89; Resp 12; Temp 97.8; Pulse Ox 100% on R/A; ak1 22:45 BP 134 / 76; Pulse 88; Resp 14; Temp 98.1; Pulse Ox 100% on R/A; ak1 [place] Coma Score: 19:08 Eye Response: to pain(2). Verbal Response: none(1). Motor Response: withdraws from jr8 pain(4). Total: 7. MDM: 18:38 Patient medically screened. jr8 21:32 Data reviewed: vital signs, nurses notes, lab test result(s), EKG, radiologic studies, jr8 CT scan, plain films, and as a result, I will admit patient. Data interpreted: Pulse oximetry: on room air is 100 %. Interpretation: normal. Counseling: I had a detailed discussion with the patient and/or guardian regarding: the historical points, exam findings, and any diagnostic results supporting the discharge/admit diagnosis, lab results, radiology results, the need to transfer to another facility, [facility] does not immediately have the required specialist. ED course: Dr. Reeves and sleeve setter lockstitch at [facility] consulted and accepted patient . 10/04 18:39 Order name: ABG; Complete Time: 20:44 jr8 10/04 18:39 Order name: Basic Metabolic Panel; Complete Time: 20:14 [facility] 10/04 18:39 Order name: Blood Culture Adult (2) [facility] 10/04 18:39 Order name: CBC with Diff; Complete Time: 21:07 [facility] 10/04 18:39 Order name: CPK; Complete Time: 20:14 [facility] 10/04 18:39 Order name: Lactate; Complete Time: 20:14 [facility] 10/04 18:39 Order name: LFT's; Complete Time: 20:14 [facility] 10/04 18:39 Order name: Lipase; Complete Time: 20:14 [facility] 10/04 18:39 Order name: Procalcitonin; Complete Time: 20:14 [facility] 10/04 18:39 Order name: Protime (+inr); Complete Time: 20:14 [facility] 10/04 18:39 Order name: Ptt, Activated; Complete Time: 20:14 [facility] 10/04 18:39 Order name: Troponin (emerg Dept Use Only); Complete Time: 20:14 [facility] 10/04 18:39 Order name: AMMONIA; Complete Time: 20:14 [facility] 10/04 18:41 Order name: Glucose, Ancillary Testing; Complete Time: 19:00 EDMS 10/04 18:39 Order name: Chest Single View XRAY; Complete Time: 19:27 [facility] 10/04 18:39 Order name: Accucheck; Complete Time: 19:40 [facility] 10/04 18:39 Order name: CT Head Brain wo Cont; Complete Time: 19:39 [facility] 10/04 19:27 Order name: Glucose, Ancillary Testing; Complete Time: 19:27 EDMS 10/04 21:03 Order name: CBC Smear Scan; Complete Time: 21:07 EDMS 10/04 21:18 Order name: Lactate; Complete Time: 22:00 bb 10/04 21:51 Order name: Urine Culture [facility] 10/04 22:40 Order name: Urine Dipstick--Ancillary (enter results); Complete Time: 22:47 ri5 10/04 18:39 Order name: Cardiac monitoring; Complete Time: 19:40 [facility] 10/04 18:39 Order name: EKG - Nurse/Tech; Complete Time: 19:40 [facility] 10/04 18:39 Order name: IV Saline Lock - Large Bore; Complete Time: 19:40 [facility] 10/04 18:39 Order name: Labs collected and sent; Complete Time: 19:40 [facility] 10/04 18:39 Order name: O2 Per Protocol; Complete Time: 19:40 [facility] 10/04 18:39 Order name: O2 Sat Monitoring; Complete Time: 19:40 [facility] 10/04 18:39 Order name: Urine Dipstick-Ancillary (obtain specimen); Complete Time: 19:40 [facility] 10/04 21:13 Order name: Damon; Complete Time: 21:13 [facility] Administered Medications: 20:49 Drug: NS 0.9% 1000 ml Route: IV; Rate: 1000 ml; Site: right antecubital; ak1 22:45 Follow up: IV Status: Completed infusion; IV Intake: 1000ml ak1 21:00 Drug: fecal management system 1 application Route: AK; ak1 21:31 Follow up: Response: No adverse reaction ak1 21:08 Drug: Lactulose 200 grams Route: AK; ak1 21:32 Follow up: Response: No adverse reaction ak1 21:52 Drug: Octreotide 50 mcg Route: IV; Rate: calculated rate; Site: right antecubital; bb 22:08 Follow up: IV Status: Completed infusion ak1 21:52 Drug: Octreotide Infusion (50 mcg/hr) - (Octreotide 500 mcg, NS 0.9% 500 ml) Route: IV; bb Rate: 50 ml/hr; Site: right antecubital; 22:44 Follow up: IV Status: Infusion continued upon transfer ak1 22:00 Drug: Zofran 4 mg Route: IVP; Site: right antecubital; ak1 22:44 Follow up: Response: No adverse reaction; Nausea is decreased ak1 22:08 Drug: Zosyn 3.375 grams Route: IVPB; Infused Over: 60 mins; Site: right upper arm; ak1 22:44 Follow up: IV Status: Completed infusion ak1 22:24 Drug: NS 0.9% 1000 ml Route: IV; Rate: 75 ml/hr; Site: right forearm; ak1 22:45 Follow up: IV Status: Infusion continued upon transfer ak1 Disposition: 10/04/18 21:34 Transfer ordered to [facility]. Diagnosis are Hepatic Encephalopathy, Dehydration, Gastrointestinal hemorrhage, unspecified. - Reason for transfer: Higher level of care. - Accepting physician is Dr. Duarte . - Condition is Stable. - Problem is new. - Symptoms are unchanged. Addendum: 10/08/2018 21:57 Co-signature as Attending Physician, Syed Smith MD. g s Signatures: Dispatcher [employer] EDMS Cindy Downing, RN RN Amara Aldana RN RN ss Adam Grigsby, LINH MELTON [id number] Becky Apple RN RN ak1 Syed Smith MD MD Corrections: (The following items were deleted from the chart) 10/04 21:40 21:34 10/04/2018 21:34 Transfer ordered to [facility]. Diagnosis is jr8 Hepatic Encephalopathy; Dehydration; Gastrointestinal hemorrhage, unspecified. Reason for transfer: Higher level of care. Accepting physician is [facility]. Condition is Stable. Problem is new. Symptoms are unchanged. jr8 23:44 21:40 10/04/2018 21:34 Transfer ordered to [facility]. Diagnosis is ak1 Hepatic Encephalopathy; Dehydration; Gastrointestinal hemorrhage, unspecified. Reason for transfer: Higher level of care. Accepting physician is Dr. Duarte . Condition is Stable. Problem is new. Symptoms are unchanged. jr8
--- NOTE | 2018-10-04 21:35 | ER ---
Nurse's Notes [facility] Name: Elfego Barros Jr Age: 68 yrs Sex: Male : 1950 Arrival Date: 10/04/2018 Time: 18:34 Bed 5 Private MD: Diagnosis: Hepatic Encephalopathy;Dehydration;Gastrointestinal hemorrhage, unspecified Presentation: 10/04 18:34 Presenting complaint: states: AMS since last night. Pt has a history of liver ss Cirrhosis and has been on the liver transplant list for 7 years. reports that pt was recently discharged from [facility] for GI bleed. Transition of care: patient was not received from another setting of care. Onset of symptoms is unknown. Risk Assessment: Do you want to hurt yourself or someone else? Patient reports no desire to harm self or others. Initial Sepsis Screen: Does the patient meet any 2 criteria? HR > 90 bpm. Does the patient have a suspected source of infection? No. Patient's initial sepsis screen is negative. Care prior to arrival: Medication(s) given: NS 100 mL IV initiated. 20 GA, in the right antecubital area, Glucose check: 219. 18:34 Method Of Arrival: EMS: [facility] ss 18:34 Acuity: SCOT 2 ss Historical: - Allergies: 18:38 Codeine; ss 18:38 [id number]-[id number] Reductase Inhibitors; ss 18:38 Tape; ss 19:05 bandaids; ak1 - Home Meds: 19:05 celdinir- 300mg 2x daily [Active]; Centrum Oral [Active]; cholestipol 50mg 2-3x daily ak1 [Active]; Citracal Oral [Active]; clotrimazole 1 % Topical soln 2 times per day [Active]; doxycycline hyclate 100 mg Oral cap 1 cap 2 times per day [Active]; fluocinolone 0.01 % Topical crea 2 times per day [Active]; furosemide 20 mg Oral tab 1 tab once daily [Active]; Humalog 100 unit/mL Sub-Q crtg [Active]; Iron CR Oral 325 mg daily [Active]; Lactulose Oral 6 tps daily [Active]; Lantus 100 unit/mL Sub-Q soln [Active]; Lidoderm 5 % Topical ptmd 1 patch once daily [Active]; Lyrica Oral 1 cap [Active]; Nystatin Oral [Active]; pramipexole 1 mg Oral tab 1 tab twice a day [Active]; Prilosec 20 mg Oral cpDR 1 cap once daily [Active]; spironolactone 25 mg Oral tab 1 tab once daily [Active]; urosodiol- 300mg 2xdaily [Active]; Xifaxan 550 mg Oral tab 1 tab 2 times per day [Active]; Zofran (as hydrochloride) 8 mg Oral tab 1 tab for prn , prn [Active]; - PMHx: 18:38 Diabetes - IDDM; GERD; Hypertension; Cirrhosis; on liver transplant list (7 years); ss - PSHx: 18:38 Hernia repair; ss - Immunization history:: Adult Immunizations up to date. - Social history:: Smoking status: unknown. - Ebola Screening: : Patient denies exposure to infectious person Patient denies travel to an Ebola-affected area in the 21 days before illness onset. Screenin:05 Abuse screen: Denies threats or abuse. Denies injuries from another. Nutritional ak1 screening: No deficits noted. Tuberculosis screening: No symptoms or risk factors identified. Fall Risk Ambulatory Aid- None/Bed Rest/Nurse Assist (0 pts). Mental Status- Overestimates/Forgets Limitations (15 pts.). Assessment: 19:42 General: Appears uncomfortable, slender, Behavior is restless, uncooperative, altered, ak1 does not respond to name, does not open eyes, does not speak. pt withdraws from painful stimuli. . Pain: Unable to use pain scale. Does not appear to understand pain scale. Neuro: Level of Consciousness is awake, confused, restless, withdraws from painful stimuli only.. Oriented to none Moves all extremities. Cardiovascular: No deficits noted. Respiratory: No deficits noted. GI: Abdomen is round noted to have ascites, Bowel sounds present X 4 quads. : Genitalia appear normal pt bladder drained via straight cath. EENT: No signs and/or symptoms were reported regarding the EENT system. Derm: Bruising that is dark purple, yellow, various stages of healing bruises from previous hospital visit. . 21:09 Reassessment: Patient appears in no apparent distress at this time. No changes from ak1 previously documented assessment. pt tolerated Damon, rectal tube and lactulose well. pt cleaned of incontinence and rectal tube clamped for 30 minuets as ordered. family at bedside. will continue to monitor. 22:26 Reassessment: Patient appears in no apparent distress at this time. No changes from ak1 previously documented assessment. pt remains altered. pt Fatou can be reached at [phone]. 22:45 Reassessment: Patient appears in no apparent distress at this time. No changes from ak1 previously documented assessment. report called to Adrian [facility] for [address] [facility]. 23:41 Reassessment: Patient appears in no apparent distress at this time. No changes from ak1 previously documented assessment. pt remains altered, restless and responsive to painful stimuli. report given to luis [place] with [facility]. Vital Signs: 18:38 BP 137 / 67; Pulse 105; Resp 20; Temp 97.5(A); Pulse Ox 100% on R/A; ss 19:42 BP 139 / 83; Pulse 101; Resp 21; Temp 97.6; Pulse Ox 100% on R/A; ak1 20:11 BP 133 / 72; Pulse 100; Resp 17; Pulse Ox 100% on R/A; ak1 21:16 BP 131 / 72; Pulse 93; Resp 12; Pulse Ox 100% on R/A; ak1 22:09 BP 142 / 77; Pulse 89; Resp 12; Temp 97.8; Pulse Ox 100% on R/A; ak1 22:45 BP 134 / 76; Pulse 88; Resp 14; Temp 98.1; Pulse Ox 100% on R/A; ak1 [place] Coma Score: 19:08 Eye Response: to pain(2). Verbal Response: none(1). Motor Response: withdraws from jr8 pain(4). Total: 7. ED Course: 18:34 Patient arrived in ED. ss 18:36 Triage completed. ss 18:38 Adam Grigsby PA is PHCP. jr8 18:38 Syed Smith MD is Attending Physician. jr8 18:38 Arm band placed on right wrist. ss 19:03 Agustin Apple, RN is Primary Nurse. ak1 19:05 Patient has correct armband on for positive identification. Bed in low position. Call ak1 light in reach. Side rails up X 1. Pulse ox on. NIBP on. 19:07 CT completed. Patient tolerated procedure well. Patient moved back from CT. bq 19:07 CT Head Brain wo Cont In Process Unspecified. EDMS 19:08 Chest Single View XRAY In Process Unspecified. EDMS 19:16 Initial lab(s) drawn, by me, sent to lab. First set of blood cultures drawn by me, ak1 Second set of blood cultures drawn by me, Urine collected: straight cath specimen, tea colored, Amount Returned: 1000mL EKG done, by ED staff, reviewed by Adam MELTON ABG drawn. by RT staff, on room air. Straight cath inserted, using sterile technique, 16 Fr. Specimen obtained. Returned agustin urine. Patient tolerated well. 19:42 Door closed. Warm blanket given. Head of bed elevated. Cleaned of incontinence. ak1 19:42 Maintain EMS IV. Dressing intact. Good blood return noted. Site clean \T\ dry. Gauge \T\ ak 1 site: 20g right AC. 20:45 Served as a senior director of strategy during rectal exam. ak1 21:13 Damon cath inserted, using sterile technique, 18 Fr., by vice president media relations, balloon inflated, to ak1 gravity drainage, returned agustin urine. Patient tolerated well. fecal management system placed. 21:16 Appears agitated. Appears restless. ak1 21:16 One on one care from 1900 until 2344 when pt was placed on EMS stretcher. ak1 21:31 Repeat lab(s) drawn. by me, sent to lab. ak1 21:45 Inserted saline lock: 22 gauge in right upper arm, using aseptic technique. ak1 22:10 Patient transferred, IV remains in place. ak1 22:27 Inserted saline lock: 22 gauge in right forearm, using aseptic technique. ,using ak1 aseptic technique. placed by Neal. Administered Medications: 20:49 Drug: NS 0.9% 1000 ml Route: IV; Rate: 1000 ml; Site: right antecubital; ak1 22:45 Follow up: IV Status: Completed infusion; IV Intake: 1000ml ak1 21:00 Drug: fecal management system 1 application Route: CT; ak1 21:31 Follow up: Response: No adverse reaction ak1 21:08 Drug: Lactulose 200 grams Route: CT; ak1 21:32 Follow up: Response: No adverse reaction ak1 21:52 Drug: Octreotide 50 mcg Route: IV; Rate: calculated rate; Site: right antecubital; bb 22:08 Follow up: IV Status: Completed infusion ak1 21:52 Drug: Octreotide Infusion (50 mcg/hr) - (Octreotide 500 mcg, NS 0.9% 500 ml) Route: IV; bb Rate: 50 ml/hr; Site: right antecubital; 22:44 Follow up: IV Status: Infusion continued upon transfer ak1 22:00 Drug: Zofran 4 mg Route: IVP; Site: right antecubital; ak1 22:44 Follow up: Response: No adverse reaction; Nausea is decreased ak1 22:08 Drug: Zosyn 3.375 grams Route: IVPB; Infused Over: 60 mins; Site: right upper arm; ak1 22:44 Follow up: IV Status: Completed infusion ak1 22:24 Drug: NS 0.9% 1000 ml Route: IV; Rate: 75 ml/hr; Site: right forearm; ak1 22:45 Follow up: IV Status: Infusion continued upon transfer ak1 Intake: 22:45 IV: 1000ml; Total: 1000ml. ak1 Output: 19:20 Urine: 1000ml (Straight Cath); Total: 1000ml. ak1 22:08 Urine: 400ml (Damon); Stool: 500 (Loose Stool) ; Total: 1400ml. ak1 Outcome: 21:34 ER care complete, transfer ordered by . lima 22:10 critical ak1 22:10 Instructed on the need for transfer. 22:48 Transferred by ground EMS to [facility], Transfer form completed. ak1 X-rays sent w/ patient. Note: report given to Boris [facility] for [address] [place] [address] Bed 8 at [phone]. Fatou, pt's , can be reached at [phone]. 23:44 Patient left the ED. ak1 Signatures: Dispatcher [employer] EDMS Chrsitie Mendoza Brenda RN RN Amara Aldana RN RN ss Roszak, Josh, PA PA jr8 Agustin Apple RN RN ak1 Corrections: (The following items were deleted from the chart) 22:47 21:16 One-on-one care X 120 minutes ak1 ak1 23:44 21:16 One on one care from 1900 until 2300 when pt was placed on EMS stretcher. ak1 ak1
[2018-10-04] MEDS ORDERED: NA CHLORIDE 0.9% 500 ML ONE (21:47)
[2018-10-04] MEDS ORDERED: OCTREOTIDE ACETATE 100 MCG/ML ONE ×2 (21:48→22:01)
[2018-10-04] MEDS ORDERED: PIPER/TAZO/NS 3.375gm 3.375 GM/100 ML BAG ONE (22:05)
[2018-10-04] MEDS ORDERED: NA CHLORIDE 0.9% 1,000 ML ONE (22:05)
[2018-10-04] MEDS ORDERED: ONDANSETRON 4 MG/2 ML VIAL ONE (22:08)
[2018-10-04 22:46] LABS: Urine Blood 1+ (NEG); Urine Glucose NEGATIVE (NEG); Urine Protein NEGATIVE (NEG); Urine pH 5.5 (5.0-7.0)
--- NOTE | 2018-10-05 20:20 | EKG ---
Test Date: 2018-10-04 Test Time: 19:17:41 Nurse Practitioner Hospitalist: ANSHUL MEASUREMENT RESULTS: Intervals: Rate: 98 [place]: QRSD: 128 QT: 406 QTc: 518 [place]: P: [place]: QRS: -30 T: 145 INTERPRETIVE STATEMENTS: Sinus rhythm Left axis deviation Left ventricular hypertrophy with QRS widening and repolarization abnormality Cannot rule out Septal infarct, age undetermined Abnormal ECG Compared to ECG 09/28/2018 11:59:45 Left-axis deviation now present Myocardial infarct finding still present Electronically Signed On 10-05-18 20:19:00 CDT by Ehsan Jones
== END 2018-10-04 23:44 | disposition short-term general hospital (02) ==
LOC: ER 18:28
DX: K72.90 Hepatic failure, unspecified without coma (principal); E86.0 Dehydration; K92.2 Gastrointestinal hemorrhage, unspecified; K74.60 Unspecified cirrhosis of liver; I10 Essential (primary) hypertension; E11.9 Type 2 diabetes mellitus without complications; Z79.4 Long term (current) use of insulin; Z88.5 Allergy status to narcotic agent; Z88.8 Allergy status to other drugs, medicaments and biological substances; Z91.048 Other nonmedicinal substance allergy status
CPT/HCPCS: 93005; 87040 ×2; 87088; 85025; 80048; 36415; 82140; 82550; 85610; 82962 ×2; 80076; 83605 ×2; 85730; 81003; 84484; 83690; 84145; 70450; 71045; 82805; 51702 ×2; 99285; J2354 ×2; J2543; J7030; J2405; 87086